=== PATIENT | female | born 1995 | race Caucasian/White ===

== ENCOUNTER 2023-05-09 21:30 | Outpatient (REF) | payer OTHER, SELFPAY ==
[2023-05-15 16:09] LABS: Age Gdln ACOG Testing Note (.); IGP, rfx Aptima HPV ASCU Note (.)
== END 2023-05-09 21:31 | disposition home or self-care (01) ==
LOC: LAB 21:30
PROVIDERS: Referring Provider Obstetrics & Gynecology; Visit Provider Obstetrics & Gynecology
DX: Z01.419 Encounter for gynecological examination (general) (routine) without abnormal findings (principal)
CPT/HCPCS: G0145

== ENCOUNTER 2023-05-10 09:11 | Outpatient (OUT) | payer OTHER, SELFPAY ==
--- NOTE | 2023-05-10 09:14 | US_ITS ---
The [address] [address] Patient Name: BRIAN SULLIVAN MRN: [id number] date: 1995 Sex: F Assigned Patient Location: Current Patient Location: US Accession/Order Number: [id number] Exam Date: 05/10/2023 09:16 Report Date: 05/10/2023 10:09 At the request of: INES WYATT Procedure: US pelvis w/ transvaginal EXAM: Pelvic ultrasound HISTORY: . Pelvic pain in female R10.2 . COMPARISON: None. TECHNIQUE: Transabdominal and transvaginal scanning was performed FINDINGS: Eating of the pelvis demonstrates uterus to be retroverted and measures 7.2 x 4.3 x 3.7 cm. Endometrial complex measures 2 mm. Right ovary measures 3.7 x 2.1 x 2 cm. Color-flow is noted. Resistive indexes 0.6. Follicles are noted. Left ovary measures 3.3 x 2.6 x 2.1 cm. Color-flow is noted. Resistive indexes 0.5. Follicles are noted. Vascularity is prominent in both adnexal regions. There is a small amount of fluid in the cul-de-sac. US/US pelvis w/ transvaginal IMPRESSION: 1. Normal-appearing retroverted uterus with a normal endometrial complex. 2. Normal-appearing ovaries with follicles noted. 3. Vascularity to the adnexal region was prominent. Findings could be due to to pelvic congestion. 4. Small amount of fluid in the cul-de-sac. Electronically authenticated by: MELINDA ORTEGA Date: 05/10/2023 10:09
== END 2023-05-10 09:12 | disposition home or self-care (01) ==
LOC: US 09:11
PROVIDERS: Visit Provider Obstetrics & Gynecology
DX: R10.2 Pelvic and perineal pain (principal); N85.4 Malposition of uterus; R93.5 Abnormal findings on diagnostic imaging of other abdominal regions, including retroperitoneum
CPT/HCPCS: 76830; 76856

== ENCOUNTER 2023-06-06 14:37 | Outpatient (OUT) | payer OTHER, SELFPAY ==
[2023-06-06 15:04] LABS: Basophils Percent Auto 0.1 % (0.2-2.0); Hematocrit 42.5 % (36.0-48.0); Hemoglobin 13.6 g/dL (12.0-16.0); Immature Granulocytes Abs Auto 0.03 10^3/uL (0.00-0.03); Immature Granulocytes Pct Auto 0.3 % (0.0-0.5); Lymphocytes Absolute Auto 1.7 10^3/uL (1.2-3.8); Lymphocytes Percent Auto 17.3 % (20.5-60.0); Mean Corpuscular Hemoglobin 26.9 pg (26.7-34.0); Mean Corpuscular Volume 84.2 fL (81.0-99.0); Mean Platelet Volume 8.5 fL (9.5-13.5); Monocytes Absolute Auto 0.6 10^3/uL (0.3-0.8); Monocytes Percent Auto 6.3 % (1.7-12.0); Neutrophils Absolute Auto 7.3 10^3/uL (1.4-6.5); Platelet Count 307 10^3/uL (150-450); Red Blood Count 5.05 10^6/uL (4.20-5.40); Red Cell Distribution Width 13.8 % (11.0-15.0); White Blood Count 9.6 10^3/uL (4.0-11.0)
[2023-06-06 16:25] LABS: Alanine Aminotransferase 26 U/L (14-59); Albumin Globulin Ratio 0.9; Albumin Level 3.8 g/dL (3.4-5.0); Alkaline Phosphatase 147 U/L (46-116); Anion Gap 10.5; Aspartate Amino Transferase 19 U/L (15-37); Bilirubin Total 0.4 mg/dL (0.2-1.0); Calcium 9.5 mg/dL (8.5-10.1); Carbon Dioxide 29.3 mmol/L (21.0-32.0); Chloride 102 mmol/L (98-107); Estimated GFR (African America >60 (>=60); Estimated GFR (Non-African Ame >60 (>=60); Globulin 4.3 g/dL; Glucose 81 mg/dL (74-106); Potassium 3.8 mmol/L (3.5-5.1); Sodium 138 mmol/L (136-145); Total Protein 8.1 g/dL (6.4-8.2)
== END 2023-06-06 14:38 | disposition home or self-care (01) ==
LOC: LAB 14:38
PROVIDERS: Visit Provider Physician Assistant
DX: R10.2 Pelvic and perineal pain (principal)
CPT/HCPCS: 36415; 80053; 85025

== ENCOUNTER 2023-06-28 09:33 | Outpatient (OUT) | payer OTHER, SELFPAY ==
--- NOTE | 2023-06-28 11:05 | CT_ITS ---
The [address] [place], [place] [address] Patient Name: BRIAN SULLIVAN MRN: [id number] date: 1995 Sex: F Assigned Patient Location: CT Current Patient Location: .MAIN Accession/Order Number: [id number] Exam Date: 06/28/2023 10:40 Report Date: 06/28/2023 17:11 At the request of: MAGDA SEPULVEDA Procedure: CT abdomen pelvis w con EXAM: CT abdomen pelvis w con HISTORY: Pelvic Pain In Female R10.2 COMPARISON: None. TECHNIQUE: Multiple axial images of the abdomen and pelvis are obtained following the administration of IV and oral contrast. Coronal and sagittal reformatted sequences are submitted for review. FINDINGS: The lung bases appear clear. The heart size is normal. Mild pericholecystic fluid is suspected. A tiny calcified gallstone may be seen. A right upper quadrant ultrasound may be considered for further evaluation. The liver, spleen, pancreas and bilateral adrenal glands appear unremarkable. Bilateral kidneys demonstrate normal size, morphology and contrast enhancement. There is no evidence for active]. Irregular filling defects in the gastric body cannot be excluded. Please correlate clinically. Nonobstructive bowel pattern is seen. Normal-appearing appendix is visualized. Mild wall thickening of the transverse colon is seen, suggestive of mild colitis. Tiny free pelvic fluid is seen, which may be physiologic. Mild prominent pelvic vascular structures is seen bilaterally, which appear stable since prior examination, which can seen with pelvic congestion syndrome. The abdominal wall and visualized soft tissues appear unremarkable. No acute osseous abnormality is seen. CT/CT abdomen pelvis w con IMPRESSION: Mild pericholecystic fluid is suspected. A tiny calcified gallstone may be seen. A right upper quadrant ultrasound may be considered for further evaluation. Mild prominent pelvic vascular structures is seen bilaterally, which appear stable since prior examination, which can seen with pelvic congestion syndrome. Irregular filling defects in the gastric body cannot be excluded. Please correlate clinically. Mild wall thickening of the transverse colon is seen, suggestive of mild colitis. Normal-appearing appendix is visualized. Electronically authenticated by: GAURAV WRIGHT Date: 06/28/2023 17:11
== END 2023-06-28 09:34 | disposition home or self-care (01) ==
LOC: CT 09:34
PROVIDERS: Visit Provider Physician Assistant
DX: R10.32 Left lower quadrant pain (principal); R10.2 Pelvic and perineal pain
CPT/HCPCS: 36415; 74177; 76830; 80053; 81003; 84703; 85025; 96374; 96375; 99284; Q9967

== ENCOUNTER 2023-06-28 16:39 | Emergency (ER) | payer OTHER, SELFPAY ==
[2023-06-28 16:43] VITALS: BP 128/77; PULSE 93; RESP 20; TEMP 36.6; O2SAT 99; BMI 27.5
--- NOTE | 2023-06-28 16:57 | US_ITS ---
[address] [address] Patient Name: BRIAN SULLIVAN MRN: [id number] date: 1995 Sex: F Assigned Patient Location: ER Current Patient Location: ER Accession/Order Number: [id number] Exam Date: 06/28/2023 17:29 Report Date: 06/28/2023 18:22 At the request of: MAGDIEL SONG Procedure: US pelvis transvaginal PROCEDURE: US pelvis transvaginal, 06/28/2023 5:29 PM EDT CLINICAL INDICATIONS: Left adnexal torsion, left-sided pelvic pain for one month, prior tubal ligation 1 para 1 COMPARISON: None TECHNIQUE: Transvaginal pelvic sonogram, grayscale color and spectral assessment. FINDINGS: Uterus: 6.2 x 3.0 x 4.3 cm. Uterus is retroverted/retroflexed. Endometrial echo complex 0.3 cm. Normal uterine sonographic morphology. Focal abnormality is not demonstrated. Right ovary: 3.8 x 1.9 x 2.6 cm, volume 10 mL. Subcentimeter follicle seen. Normal sonographic morphology. Left ovary: 2.6 x 1.6 x 1.8 cm, volume 4 mL. Subcentimeter follicle seen, normal sonographic morphology. DUPLEX PELVIC VASCULATURE: There is intact flow within the ovarian tissue bilaterally by color-flow assessment. Arterial spectral tracing is identified from within. Right resistive index 0.51, left 0.59. There is increased vascularity in the parametrial and adnexa level. There is mild free fluid in the adnexa level bilaterally. US/US pelvis transvaginal IMPRESSION: 1. Retroverted/retroflexed uterus 2. Normal bilateral ovarian sonographic morphology 3. No sonographic sign of adnexal torsion 4. Mild pelvic varices Electronically authenticated by: TOM CUBA Date: 06/28/2023 18:22
--- NOTE | 2023-06-28 16:59 | ED.ABDPAIN1 ---
HPI - Abdominal Pain General Chief Complaint: Abdominal Pain Stated Complaint: radiating abdominal pain Time Seen by Provider: 06/28/23 16:40 Mode of arrival: walk-in History of Present Illness HPI narrative: patient is a 27-year-old female who presents to the emergency department with a five day history of pain to the left lower quadrant. She had similar pain approximately one month ago and was evaluated by her [facility], she had an unremarkable ultrasound and was prescribed Tylenol with Codeine. She states when the pain began again five days ago, she started taking Tylenol with Codeine, she has had no improvement with this medication in the last several days. She was feeling nauseous so she took a Zofran prior to arrival. She had an outpatient CT scan of the abdomen and pelvis today. Results have not been sent by the radiologist yet. She denies any fevers, upper respiratory symptoms. She has not had any urinary symptoms. She has had a previous exploratory laparotomy and salpingectomy. Related Data Previous Rx's Medication Instructions Recorded ciprofloxacin HCl 500 mg tablet 500 mg PO BID #20 tabs 06/28/23 (Cipro) hydrocodone 5 mg-acetaminophen 325 1 tab PO Q6H PRN pain #12 tabs 06/28/23 mg tablet metronidazole 500 mg tablet 500 mg PO Q12H 10 days #20 tabs 06/28/23 ondansetron 4 mg disintegrating 4 mg PO Q6H PRN nausea and 06/28/23 tablet vomiting #12 tabs Allergies Allergy/AdvReac Type Severity Reaction Status Date / Time ibuprofen [From Motrin] AdvReac Unknown Verified 06/28/23 16:49 latex AdvReac Unknown Verified 06/28/23 16:49 Sulfa (Sulfonamide AdvReac Unknown Verified 06/28/23 16:49 Antibiotics) Review of Systems ROS Constitutional Denies: fever or chills Ears, nose, mouth, and throat Denies: throat pain Cardiovascular Denies: chest pain Respiratory Denies: shortness of breath Gastrointestinal Reports: abdominal pain and nausea; Denies: vomiting or diarrhea Genitourinary Denies: painful urination Musculoskeletal Denies: back pain or neck pain Integumentary/Breast Denies: rash Hematologic/Lymphatic Denies: easy bruising Exam Narrative Exam Narrative: Gen.: Awake, alert, in no distress Head: Normocephalic, atraumatic ENT: Moist mucous membranes Respiratory: No respiratory distress, lungs clear bilaterally Cardio: Regular rate and rhythm Gastrointestinal: Abdomen is soft, nondistended and tender in the left lower quadrant, no guarding or rebound Extremities: Moves extremities equally Psych: Normal mood and affect Neuro: No focal neuro deficit Skin: Warm, dry, intact Constitutional Vital Signs, click to edit/add: Last Vital Signs Temp 98 F 06/28/23 16:43 Pulse 93 H 06/28/23 16:43 Resp 06/28/23 16:43 BP 128/77 06/28/23 16:43 Pulse Ox 99 06/28/23 16:43 O2 Del Method Room Air 06/28/23 16:43 Course Vital Signs Vital signs: Vital Signs Temperature 98 F 06/28/23 16:43 Pulse Rate 93 H 06/28/23 16:43 Respiratory Rate 06/28/23 16:43 Blood Pressure 128/77 06/28/23 16:43 Pulse Oximetry 99 06/28/23 16:43 Oxygen Delivery Method Room Air 06/28/23 16:43 Temperature 98 F 06/28/23 16:43 Pulse Rate 93 H 06/28/23 16:43 Respiratory Rate 06/28/23 16:43 Blood Pressure 128/77 06/28/23 16:43 Pulse Oximetry 99 06/28/23 16:43 Oxygen Delivery Method Room Air 06/28/23 16:43 MDM - Abdominal Pain MDM Narrative Medical decision making narrative: patient was medicated with IV fluids, morphine, Zofran. I asked the radiology staff to send the CT scan as a stat read by the radiologist. This was reviewed and found to have evidence of mild colitis as well as pelvic congestion syndrome. Radiologist feels there may be a small amount of pericholecystic fluid, the patient has not had any right upper quadrant abdominal tenderness or right-sided abdominal pain. She has no pain to this area at this time I do not feel that her symptoms represent a cholecystitis. pelvic ultrasound with no evidence of torsion, patient does have pelvic varices consistent with her CT diagnosis of pelvic vascular congestion which may be contributing to some of her pain. Her CT also shows that she has evidence of mild colitis. We will treat with Cipro, Flagyl, Zofran, short course of analgesics. Abdomen is soft and benign on recheck by attending physician. Medical Records Attestation: I reviewed the patient's medical records. Lab Data Attestation: I reviewed the patient's lab results. Labs: Lab Results 06/28/23 06/28/23 Range/Units 17:05 17:11 WBC 10.4 (4.0-11.0) 10^3/uL RBC 4.78 (4.20-5.40) 10^6/uL Hgb 13.3 (12.0-16.0) g/dL Hct 40.8 (36.0-48.0) % MCV 85.4 (81.0-99.0) fL MCH 27.8 (26.7-34.0) pg MCHC 32.6 (29.9-35.2) g/dL RDW 13.4 (11.0-15.0) % Plt Count 260 (150-450) 10^3/uL MPV 9.1 L (9.5-13.5) fL Neut % (Auto) 76.5 H (43.0-75.0) % Lymph % (Auto) 18.4 L (20.5-60.0) % [place] % (Auto) 4.7 (1.7-12.0) % Eos % (Auto) 0.0 L (0.9-7.0) % Baso % (Auto) 0.1 L (0.2-2.0) % Neut # (Auto) 8.0 H (1.4-6.5) 10^3/uL Lymph # (Auto) 1.9 (1.2-3.8) 10^3/uL [place] # (Auto) 0.5 (0.3-0.8) 10^3/uL Eos # (Auto) 0.0 (0.0-0.7) 10^3/uL Baso # (Auto) 0.0 (0.0-0.1) 10^3/uL Abs Immat Gran (auto) 0.03 (0.00-0.03) 10^3/uL Imm/Tot Granulo (auto) 0.3 (0.0-0.5) % Sodium 139 (136-145) mmol/L Potassium 3.3 L (3.5-5.1) mmol/L Chloride 103 (98-107) mmol/L Carbon Dioxide 30.2 (21.0-32.0) mmol/L Anion Gap 9.1 BUN 8.0 (7.0-18.0) mg/dL Creatinine 0.72 (0.55-1.02) mg/dL Est GFR ( Amer) >60 (>=60) Est GFR (Non-Af Amer) >60 (>=60) BUN/Creatinine Ratio 11.1 Glucose 124 H (74-106) mg/dL Calcium 8.9 (8.5-10.1) mg/dL Total Bilirubin 0.3 (0.2-1.0) mg/dL AST 16 (15-37) U/L ALT 20 (14-59) U/L Alkaline Phosphatase 144 H (46-116) U/L Total Protein 7.5 (6.4-8.2) g/dL Albumin 3.5 (3.4-5.0) g/dL Globulin 4.0 g/dL Albumin/Globulin Ratio 0.9 Serum HCG, Qual Negative (NEGATIVE) Urine Color Lt. yellow (YELLOW) Urine Clarity Clear (CLEAR) Urine pH 7.0 (5.0-9.0) Ur Specific [place] <=1.005 A (1.005-1.025) Urine Protein Negative (NEG/TRACE) mg/dL Urine Glucose (UA) Negative (NEGATIVE) mg/dL Urine Ketones Negative (NEGATIVE) mg/dL Urine Occult Blood Negative (NEGATIVE) Urine Nitrite Negative (NEGATIVE) Urine Bilirubin Negative (NEGATIVE) Urine Urobilinogen 0.2 (0.2-1.0) EU/dL Ur Leukocyte Esterase Trace A (NEGATIVE) Imaging Data CT scan - abdomen: Attestation: I have reviewed the pertinent imaging results. Radiologist's impression: Procedure: CT abdomen pelvis w con EXAM: CT abdomen pelvis w con HISTORY: Pelvic Pain In Female R10.2 COMPARISON: None. TECHNIQUE: Multiple axial images of the abdomen and pelvis are obtained following the administration of IV and oral contrast. Coronal and sagittal reformatted sequences are submitted for review. FINDINGS: The lung bases appear clear. The heart size is normal. Mild pericholecystic fluid is suspected. A tiny calcified gallstone may be seen. A right upper quadrant ultrasound may be considered for further evaluation. The liver, spleen, pancreas and bilateral adrenal glands appear unremarkable. Bilateral kidneys demonstrate normal size, morphology and contrast enhancement. There is no evidence for active]. Irregular filling defects in the gastric body cannot be excluded. Please correlate clinically. Nonobstructive bowel pattern is seen. Normal-appearing appendix is visualized. Mild wall thickening of the transverse colon is seen, suggestive of mild colitis. Tiny free pelvic fluid is seen, which may be physiologic. Mild prominent pelvic vascular structures is seen bilaterally, which appear stable since prior examination, which can seen with pelvic congestion syndrome. The abdominal wall and visualized soft tissues appear unremarkable. No acute osseous abnormality is seen. IMPRESSION: Mild pericholecystic fluid is suspected. A tiny calcified gallstone may be seen. A right upper quadrant ultrasound may be considered for further evaluation. Mild prominent pelvic vascular structures is seen bilaterally, which appear stable since prior examination, which can seen with pelvic congestion syndrome. Irregular filling defects in the gastric body cannot be excluded. Please correlate clinically. Mild wall thickening of the transverse colon is seen, suggestive of mild colitis. Normal-appearing appendix is visualized. Electronically authenticated by: GAURAV WRIGHT Date: 06/28/2023 17:11 US - abdomen: Attestation: I have reviewed the pertinent imaging results. Radiologist's impression: Procedure: US pelvis transvaginal PROCEDURE: US pelvis transvaginal, 06/28/2023 5:29 PM EDT CLINICAL INDICATIONS: Left adnexal torsion, left-sided pelvic pain for one month, prior tubal ligation 1 para 1 COMPARISON: None TECHNIQUE: Transvaginal pelvic sonogram, grayscale color and spectral assessment. FINDINGS: Uterus: 6.2 x 3.0 x 4.3 cm. Uterus is retroverted/retroflexed. Endometrial echo complex 0.3 cm. Normal uterine sonographic morphology. Focal abnormality is not demonstrated. Right ovary: 3.8 x 1.9 x 2.6 cm, volume 10 mL. Subcentimeter follicle seen. Normal sonographic morphology. Left ovary: 2.6 x 1.6 x 1.8 cm, volume 4 mL. Subcentimeter follicle seen, normal sonographic morphology. DUPLEX PELVIC VASCULATURE: There is intact flow within the ovarian tissue bilaterally by color-flow assessment. Arterial spectral tracing is identified from within. Right resistive index 0.51, left 0.59. There is increased vascularity in the parametrial and adnexa level. There is mild free fluid in the adnexa level bilaterally. IMPRESSION: 1. Retroverted/retroflexed uterus 2. Normal bilateral ovarian sonographic morphology 3. No sonographic sign of adnexal torsion 4. Mild pelvic varices Electronically authenticated by: TOM CUBA Date: 06/28/2023 18:22 Discharge Plan Discharge Chief Complaint: Abdominal Pain Clinical Impression: Colitis, Abdominal pain Patient Disposition: Home, Self-Care Time of Disposition Decision: 18:42 Condition: Good Prescriptions / Home Meds: New hydrocodone-acetaminophen 5-325 mg tablet 1 tab PO Q6H PRN (Reason: pain) Qty: 12 0RF Rx Instructions: DX: R10.2 ciprofloxacin HCl [Cipro] 500 mg tablet 500 mg PO BID Qty: 20 0RF metronidazole 500 mg tablet 500 mg PO Q12H 10 Days Qty: 20 0RF Rx Instructions: DO NOT DRINK ALCOHOL WHILE TAKING THIS MEDICATION ondansetron 4 mg tablet,disintegrating 4 mg PO Q6H PRN (Reason: nausea and vomiting) Qty: 12 0RF Instructions: Abdominal Pain (ED), Colitis (ED), Pelvic Pain (ED) Stand Alone Forms: Portal Instructions Referrals: Ghanshyam Nieto DO [Physician] - 1 week Physician,Non-Staff, MD [Primary Care Provider] - 1 week
[2023-06-28] MEDS: MORPHINE SULFATE 4 MG/ML VIAL IV (17:19)
[2023-06-28] MEDS: ONDANSETRON PF 4 MG/2 ML VIAL IV (17:19)
[2023-06-28] MEDS: 0.9 % SODIUM CHLORIDE 1,000 ML 1000 ML IV (17:19)
[2023-06-28 17:39] LABS: HCG Qualitative NEGATIVE (NEGATIVE)
[2023-06-28 17:42] LABS: Alanine Aminotransferase 20 U/L (14-59); Albumin Globulin Ratio 0.9; Albumin Level 3.5 g/dL (3.4-5.0); Alkaline Phosphatase 144 U/L (46-116); Anion Gap 9.1; Aspartate Amino Transferase 16 U/L (15-37); BUN Creatinine Ratio 11.1; Bilirubin Total 0.3 mg/dL (0.2-1.0); Calcium 8.9 mg/dL (8.5-10.1); Carbon Dioxide 30.2 mmol/L (21.0-32.0); Chloride 103 mmol/L (98-107); Estimated GFR (African America >60 (>=60); Estimated GFR (Non-African Ame >60 (>=60); Glucose 124 mg/dL (74-106); Potassium 3.3 mmol/L (3.5-5.1); Sodium 139 mmol/L (136-145); Total Protein 7.5 g/dL (6.4-8.2)
[2023-06-28 17:44] LABS: Basophils Percent Auto 0.1 % (0.2-2.0); Hematocrit 40.8 % (36.0-48.0); Hemoglobin 13.3 g/dL (12.0-16.0); Immature Granulocytes Abs Auto 0.03 10^3/uL (0.00-0.03); Immature Granulocytes Pct Auto 0.3 % (0.0-0.5); Lymphocytes Absolute Auto 1.9 10^3/uL (1.2-3.8); Lymphocytes Percent Auto 18.4 % (20.5-60.0); Mean Corpuscular HGB Conc 32.6 g/dL (29.9-35.2); Mean Corpuscular Hemoglobin 27.8 pg (26.7-34.0); Mean Corpuscular Volume 85.4 fL (81.0-99.0); Mean Platelet Volume 9.1 fL (9.5-13.5); Monocytes Absolute Auto 0.5 10^3/uL (0.3-0.8); Monocytes Percent Auto 4.7 % (1.7-12.0); Neutrophils Percent Auto 76.5 % (43.0-75.0); Platelet Count 260 10^3/uL (150-450); Red Blood Count 4.78 10^6/uL (4.20-5.40); Red Cell Distribution Width 13.4 % (11.0-15.0); White Blood Count 10.4 10^3/uL (4.0-11.0)
[2023-06-28 18:16] LABS: Bilirubin Urine NEGATIVE (NEGATIVE); Blood Urine NEGATIVE (NEGATIVE); Clarity Urine CLEAR (CLEAR); Color Urine LT. YELLOW (YELLOW); Glucose Urine UA NEGATIVE (NEGATIVE); Ketones Urine NEGATIVE (NEGATIVE); Leukocyte Esterase Urine TRACE (NEGATIVE); Nitrite Urine NEGATIVE (NEGATIVE); Protein Urine NEGATIVE (NEG/TRACE); Specific Gravity Urine <=1.005 (1.005-1.025); Urobilinogen Urine 0.2 EU/dL (0.2-1.0)
[2023-06-28 18:17] LABS: Urine Microscopic Indicated NO
== END 2023-06-28 18:59 | disposition home or self-care (01) ==
PROVIDERS: Physician Assistant; Emergency Provider Emergency Medicine
DX: R10.32 Left lower quadrant pain (principal)
CPT/HCPCS: 36415; 76830; 80053; 81003; 84703; 85025; 96374; 96375; 99284

== ENCOUNTER 2023-06-30 14:35 | Emergency (ER) | payer OTHER, SELFPAY ==
[2023-06-30 14:39] VITALS: BP 121/79; PULSE 78; RESP 18; TEMP 37.3; O2SAT 98; BMI 27.5
--- NOTE | 2023-06-30 14:52 | ED_ITS ---
HPI - General Adult General Chief complaint: Abdominal Pain Stated complaint: ABDOMINAL/WHOLE BODY PAIN/BURNING Time Seen by Provider: 06/30/23 14:46 Source: patient Mode of arrival: walk-in History of Present Illness HPI narrative: 27-year-old female presents for not feeling well. Her whole body hurts. She was here a few days ago and was diagnosed with colitis and she was prescribed Cipro and Flagyl. Achingmedications. She has not had a known fever or blood in her stool. She states that everything hurts. Related Data Previous Rx's Medication Instructions Recorded ciprofloxacin HCl 500 mg tablet 500 mg PO BID #20 tabs 06/28/23 (Cipro) metronidazole 500 mg tablet 500 mg PO Q12H 10 days #20 tabs 06/28/23 ondansetron 4 mg disintegrating 4 mg PO Q6H PRN nausea and 06/28/23 tablet vomiting #12 tabs oxycodone-acetaminophen 5 mg-325 1 tab PO Q6H PRN pain #8 tabs 06/28/23 mg tablet (Percocet) Allergies Allergy/AdvReac Type Severity Reaction Status Date / Time ibuprofen [From Motrin] AdvReac Unknown Verified 06/28/23 16:49 latex AdvReac Unknown Verified 06/28/23 16:49 Sulfa (Sulfonamide AdvReac Unknown Verified 06/28/23 16:49 Antibiotics) Review of Systems ROS Narrative A ten point review of systems is negative except as noted above. Exam Narrative Exam Narrative: Nurses note and vital signs reviewed and patient is not hypoxic. General: The patient appears well and in no apparent distress. Patient is resting comfortably on cart. Skin: Warm, dry, no pallor noted. There is no rash noted. Head: Normocephalic, atraumatic Eye: Normal conjunctiva, no drainage Ears, Nose, Mouth, and Throat: oral mucosa is moist. Nares patent. Cardiovascular: Regular Rate and Rhythm Respiratory: Patient is in no distress, no accessory muscle use, lungs are clear to auscultation, no wheezing, rales or rhonchi Back: non-tender GI: Normal bowel sounds, no apparent tenderness to palpation, no masses appreciated. No rebound, guarding, or rigidity noted. Musculoskeletal: The patient has no evidence of calf tenderness, no pitting edema, symmetrical pulses noted bilaterally Neurological: A&O, normal speech Psychiatric: Cooperative Constitutional Vital Signs, click to edit/add: Last Vital Signs Temp 99.1 F 06/30/23 14:39 Pulse 78 06/30/23 14:39 Resp 18 06/30/23 14:39 BP 121/79 06/30/23 14:39 Pulse Ox 98 06/30/23 14:39 Course Vital Signs Vital signs: Vital Signs Temperature 99.1 F 06/30/23 14:39 Pulse Rate 78 06/30/23 14:39 Respiratory Rate 18 06/30/23 14:39 Blood Pressure 121/79 06/30/23 14:39 Pulse Oximetry 98 06/30/23 14:39 Temperature 99.1 F 06/30/23 14:39 Pulse Rate 78 06/30/23 14:39 Respiratory Rate 18 06/30/23 14:39 Blood Pressure 121/79 06/30/23 14:39 Pulse Oximetry 98 06/30/23 14:39 Medical Decision Making MDM Narrative Medical decision making narrative: CT today shows constipation. The previously noted colitis seems to have resolved. She'll be discharged home and was recommended MiraLAX. Treatment diagnosis and follow-up were discussed with the patient. Differential Diagnosis Differential Diagnosis: colitis, diverticulitis, constipation Lab Data Lab results reviewed: Yes I reviewed the patient's lab results Labs: Lab Results 06/30/23 06/30/23 Range/Units 15:07 16:20 WBC 15.1 H (4.0-11.0) 10^3/uL RBC 5.05 (4.20-5.40) 10^6/uL Hgb 13.9 (12.0-16.0) g/dL Hct 43.6 (36.0-48.0) % MCV 86.3 (81.0-99.0) fL MCH 27.5 (26.7-34.0) pg MCHC 31.9 (29.9-35.2) g/dL RDW 13.5 (11.0-15.0) % Plt Count 237 (150-450) 10^3/uL MPV 8.7 L (9.5-13.5) fL Neut % (Auto) 82.3 H (43.0-75.0) % Lymph % (Auto) 11.3 L (20.5-60.0) % [place] % (Auto) 6.0 (1.7-12.0) % Eos % (Auto) 0.0 L (0.9-7.0) % Baso % (Auto) 0.1 L (0.2-2.0) % Neut # (Auto) 12.4 H (1.4-6.5) 10^3/uL Lymph # (Auto) 1.7 (1.2-3.8) 10^3/uL Ness # (Auto) 0.9 H (0.3-0.8) 10^3/uL Eos # (Auto) 0.0 (0.0-0.7) 10^3/uL Baso # (Auto) 0.0 (0.0-0.1) 10^3/uL Abs Immat Gran (auto) 0.05 H (0.00-0.03) 10^3/uL Imm/Tot Granulo (auto) 0.3 (0.0-0.5) % Sodium 139 (136-145) mmol/L Potassium 4.0 (3.5-5.1) mmol/L Chloride 102 (98-107) mmol/L Carbon Dioxide 32.9 H (21.0-32.0) mmol/L Anion Gap 8.1 BUN 7.0 (7.0-18.0) mg/dL Creatinine 0.83 (0.55-1.02) mg/dL Est GFR ( Amer) >60 (>=60) Est GFR (Non-Af Amer) >60 (>=60) BUN/Creatinine Ratio 8.4 Glucose 87 (74-106) mg/dL Calcium 9.2 (8.5-10.1) mg/dL Urine Color Lt. yellow (YELLOW) Urine Clarity Slightly cloudy A (CLEAR) Urine pH 7.5 (5.0-9.0) Ur Specific [place] 1.025 (1.005-1.025) Urine Protein Negative (NEG/TRACE) mg/dL Urine Glucose (UA) Negative (NEGATIVE) mg/dL Urine Ketones Negative (NEGATIVE) mg/dL Urine Occult Blood Negative (NEGATIVE) Urine Nitrite Negative (NEGATIVE) Urine Bilirubin Negative (NEGATIVE) Urine Urobilinogen 0.2 (0.2-1.0) EU/dL Ur Leukocyte Esterase Trace A (NEGATIVE) Urine RBC None seen (0-2) #/HPF Urine WBC 0-2 A (NONE SEEN) #/HPF Ur Squamous Epith Cells Few A (NONE/RARE) #/LPF Urine Crystals None seen (None Seen) #/HPF Urine Bacteria Moderate A (NONE SEEN) #/HPF Urine Casts None seen (NONE SEEN) #/LPF Urine Mucus None seen (NONE SEEN) Ur Culture Indicated? Yes Imaging Data CT scan - abdomen: Radiologist's impression: constipation Discharge Plan Discharge Chief Complaint: Abdominal Pain Clinical Impression: Constipation Patient Disposition: Home, Self-Care Time of Disposition Decision: 18:55 Condition: Good Mode of Transportation: Private Vehicle Prescriptions / Home Meds: No Action ciprofloxacin HCl [Cipro] 500 mg tablet 500 mg PO BID Qty: 20 0RF metronidazole 500 mg tablet 500 mg PO Q12H 10 Days Qty: 20 0RF Rx Instructions: DO NOT DRINK ALCOHOL WHILE TAKING THIS MEDICATION ondansetron 4 mg tablet,disintegrating 4 mg PO Q6H PRN (Reason: nausea and vomiting) Qty: 12 0RF oxycodone-acetaminophen [Percocet] 5-325 mg tablet 1 tab PO Q6H PRN (Reason: pain) Qty: 8 0RF Rx Instructions: R10.2 Instructions: Constipation (ED) Stand Alone Forms: Portal Instructions Referrals: Physician,Non-Staff, MD [Primary Care Provider] - 1 week
[2023-06-30] MEDS: KETOROLAC TROMETHAMINE 30 MG/ML VIAL IVP (15:12)
[2023-06-30] MEDS: ONDANSETRON PF 4 MG/2 ML VIAL IV (15:12)
[2023-06-30] MEDS: 0.9 % SODIUM CHLORIDE 1,000 ML 1000 ML IV (15:12)
[2023-06-30 15:20] LABS: Basophils Percent Auto 0.1 % (0.2-2.0); Hematocrit 43.6 % (36.0-48.0); Hemoglobin 13.9 g/dL (12.0-16.0); Immature Granulocytes Abs Auto 0.05 10^3/uL (0.00-0.03); Immature Granulocytes Pct Auto 0.3 % (0.0-0.5); Lymphocytes Absolute Auto 1.7 10^3/uL (1.2-3.8); Lymphocytes Percent Auto 11.3 % (20.5-60.0); Mean Corpuscular HGB Conc 31.9 g/dL (29.9-35.2); Mean Corpuscular Hemoglobin 27.5 pg (26.7-34.0); Mean Corpuscular Volume 86.3 fL (81.0-99.0); Mean Platelet Volume 8.7 fL (9.5-13.5); Monocytes Absolute Auto 0.9 10^3/uL (0.3-0.8); Neutrophils Absolute Auto 12.4 10^3/uL (1.4-6.5); Neutrophils Percent Auto 82.3 % (43.0-75.0); Platelet Count 237 10^3/uL (150-450); Red Blood Count 5.05 10^6/uL (4.20-5.40); Red Cell Distribution Width 13.5 % (11.0-15.0); White Blood Count 15.1 10^3/uL (4.0-11.0)
[2023-06-30 15:23] LABS: Anion Gap 8.1; BUN Creatinine Ratio 8.4; Calcium 9.2 mg/dL (8.5-10.1); Carbon Dioxide 32.9 mmol/L (21.0-32.0); Chloride 102 mmol/L (98-107); Estimated GFR (African America >60 (>=60); Estimated GFR (Non-African Ame >60 (>=60); Glucose 87 mg/dL (74-106); Sodium 139 mmol/L (136-145)
--- NOTE | 2023-06-30 16:10 | CT_ITS ---
The [address] [address] Patient Name: BRIAN SULLIVAN MRN: [id number] date: 1995 Sex: F Assigned Patient Location: ER Current Patient Location: ER Accession/Order Number: [id number] Exam Date: 06/30/2023 16:31 Report Date: 06/30/2023 17:24 At the request of: AILEEN NICOLAS Procedure: CT head/brain wo con EXAM: NONCONTRAST CT SCAN OF THE HEAD HISTORY: Elevated white blood cell in the ER 2 days ago for abdominal pain now having right leg pain and chills with double vision. Patient has had an exploratory laparoscopy bladder stretched tubal and ablation. Patient has colitis that was diagnosed on 06/28/[address] scan. TECHNIQUE: Multiple axial images are taken from the level the vertex down to the base of the skull without the use of IV contrast. Images were then reconstructed in the sagittal and coronal planes. This exam was performed according to our departmental dose-optimization program which includes use of Automated Exposure Control, adjustment of the mA and/or kV according to patient size and/or use of iterative reconstruction technique. COMPARISON: CT abdomen pelvis 06/28/2023 FINDINGS: Brain Parenchyma: No intracranial mass. No intracranial hemorrhage. Stacy-white matter within expected limits of normal for patient's age. Posterior fossa: Normal. Midline shift: None Extra-axial fluid collection: None Ventricles: Normal. Mastoid air cells: Normal. Sinuses: Normal. Cranium: No depressed skull fracture. Soft tissues: Normal. Orbits: Normal. CT/CT head/brain wo con IMPRESSION: 1. No noncontrast CT evidence for acute intracranial pathology. 2. If patient continues to have symptoms or if there remains any further clinical concern, MRI may help better delineate if clinically indicated. Electronically authenticated by: DARLENE PITTMAN Date: 06/30/2023 17:24
[2023-06-30 16:44] LABS: Bilirubin Urine NEGATIVE (NEGATIVE); Blood Urine NEGATIVE (NEGATIVE); Color Urine LT. YELLOW (YELLOW); Glucose Urine UA NEGATIVE (NEGATIVE); Ketones Urine NEGATIVE (NEGATIVE); Leukocyte Esterase Urine TRACE (NEGATIVE); Nitrite Urine NEGATIVE (NEGATIVE); Protein Urine NEGATIVE (NEG/TRACE); Specific Gravity Urine 1.025 (1.005-1.025); Urobilinogen Urine 0.2 EU/dL (0.2-1.0); pH Urine 7.5 (5.0-9.0)
[2023-06-30 16:49] LABS: Bacteria Urine MODERATE #/HPF (NONE SEEN); Clarity Urine SLIGHTLY CLOUDY (CLEAR); Mucus Urine NONE SEEN (NONE SEEN); RBC Urine NONE SEEN #/HPF (0-2); Squamous Epithelial Cell Urine FEW #/LPF (NONE/RARE); WBC Urine 0-2 #/HPF (NONE SEEN)
[2023-06-30 16:50] LABS: Cast Seen? NONE SEEN #/LPF (NONE SEEN); Crystals Seen? None Seen #/HPF (None Seen); Urine Culture Indicated YES
--- NOTE | 2023-06-30 17:37 | CT_ITS ---
The [address] [address] Patient Name: BRIAN SULLIVAN MRN: [id number] date: 1995 Sex: F Assigned Patient Location: ER Current Patient Location: Accession/Order Number: [id number] Exam Date: 06/30/2023 18:05 Report Date: 06/30/2023 19:17 At the request of: AILEEN NICOLAS Procedure: CT abdomen pelvis w con EXAM: CT abdomen pelvis w con HISTORY: low abd pain COMPARISON: 06/28/2023. 07/06/2022. TECHNIQUE: Enhanced helical acquisition obtained through the abdomen and the pelvis. FINDINGS: Interval development of mild patchy airspace opacification within the left lower lobe concerning for interval development of mild left lower lobe pneumonia. Trace bilateral layering pleural effusions. Unremarkable gallbladder. No significant biliary ductal dilatation. The spleen, pancreas, adrenal glands and the kidneys are unremarkable. No enlarged lymph nodes within the abdomen or the pelvis. Trace free fluid within the pelvic cul-de-sac, likely physiologic. No evidence of acute appendicitis. Moderate stool burden throughout the colon. Previously questioned colonic wall thickening is noted appreciated on the current examination. No free intraperitoneal gas. CT/CT abdomen pelvis w con IMPRESSION: 1. Normal appendix. No inflammatory changes within the abdomen or the pelvis. 2. Moderate stool burden throughout the colon. Previously questioned colonic wall thickening is not appreciated on the current examination. 3. Interval development of mild patchy airspace opacification within the included left lower lobe with the lung concerning for mild left lower lobe pneumonia. Trace bilateral layering pleural effusions. Electronically authenticated by: LEATHA OKEEFE Date: 06/30/2023 19:17
[2023-06-30] MEDS: LORAZEPAM 2 MG/ML 1 ML VIAL 1 MG IV (17:55)
[2023-06-30] MEDS: MORPHINE SULFATE 4 MG/ML VIAL IV (17:56)
[2023-06-30 19:08] VITALS: BP 109/87; PULSE 96; RESP 14; TEMP 37.1
== END 2023-06-30 19:14 | disposition home or self-care (01) ==
PROVIDERS: Emergency Provider Emergency Medicine
DX: K59.00 Constipation, unspecified (principal)
CPT/HCPCS: 36415; 70450; 74177; 80048; 81001; 85025; 87086; 96374; 96375; 99285; Q9967

== ENCOUNTER 2023-07-05 11:02 | Outpatient (OUT) | payer OTHER, SELFPAY ==
--- NOTE | 2023-07-05 11:06 | US_ITS ---
The [address] [address] Patient Name: BRIAN SULLIVAN MRN: [id number] date: 1995 Sex: F Assigned Patient Location: US Current Patient Location: US Accession/Order Number: [id number] Exam Date: 07/05/2023 11:06 Report Date: 07/05/2023 13:08 At the request of: INES WYATT Procedure: US pelvis w/ transvaginal EXAMINATION: US pelvis w/ transvaginal HISTORY: ABD PAIN ; increasing left lower quadrant pain over past week COMPARISON: Ultrasound pelvis 06/28/2023 TECHNIQUE: Transabdominal and/or transvaginal sonographic examination was performed as indicated by examination type. FINDINGS: UTERUS: Normal size and appearance. Uterus size: 7. 63.2 x 4.3 cm ENDOMETRIUM: Normal homogeneous appearance. Endometrial thickness: 2 mm RIGHT OVARY: Normal size and appearance. Duplex Doppler demonstrates normal waveform and flow; resistive index 0.6. Ovary size: 3.4 x 2.0 x 2.8 cm LEFT OVARY: Normal size and appearance. Duplex Doppler demonstrates normal waveform and flow; resistive index 0.5. Ovary size: 3.5 x 2.1 x 2.9 cm CUL-DE-SAC: Small amount of free fluid within cul-de-sac; likely physiologic. BLADDER: Unremarkable. OTHER: Prominent vessels within the adnexa; left greater than right, of uncertain clinical significance. US/US pelvis w/ transvaginal IMPRESSION: 1. No acute or suspicious findings to account for patient's symptoms. Electronically authenticated by: ILENE MERCADO Date: 07/05/2023 13:08
== END 2023-07-05 11:03 | disposition home or self-care (01) ==
LOC: US 11:03
PROVIDERS: Visit Provider Obstetrics & Gynecology
DX: E28.2 Polycystic ovarian syndrome (principal); R10.2 Pelvic and perineal pain
CPT/HCPCS: 76830; 76856

== ENCOUNTER 2023-07-19 09:58 | Emergency (ER) | payer OTHER, SELFPAY ==
[2023-07-19 10:40] VITALS: BP 114/73; PULSE 90; RESP 14; TEMP 36.8; O2SAT 98; BMI 26.2
--- NOTE | 2023-07-19 12:27 | CT_ITS ---
[address] [address] Patient Name: BRIAN SULLIVAN MRN: [id number] date: 1995 Sex: F Assigned Patient Location: ER Current Patient Location: ER Accession/Order Number: [id number] Exam Date: 07/19/2023 13:25 Report Date: 07/19/2023 14:20 At the request of: AILEEN NICOLAS Procedure: CT abdomen pelvis w con EXAM: CT abdomen pelvis w con HISTORY: low abd pain COMPARISON: 06/30/2023 TECHNIQUE: Axial CT imaging was performed through the abdomen and pelvis with intravenous contrast. Multiplanar reformats were performed. Dose reduction techniques were achieved by using automated exposure control and/or adjustment of mA and/or kV according to patient size and/or use of iterative reconstruction technique. FINDINGS: Lung bases: Lung bases are clear. No pleural effusion. GI upper: Unremarkable. Liver: Normal size and contour. Gallbladder: No significant abnormality. No cholelithiasis. Biliary system: No intra or extrahepatic biliary ductal dilatation. Spleen: Normal size. Pancreas: Unremarkable. Adrenal glands: Normal adrenal glands. Kidneys/ureters: Normal contours. No hydronephrosis. No nephrolithiasis or ureterolithiasis. Vessels: No aneurysm. Lymph Nodes: No lymphadenopathy. Small bowel: No wall thickening or dilatation. Colon: No wall thickening or dilatation. Appendix: No findings of appendicitis. Peritoneal cavity: No free fluid or pneumoperitoneum. Lower : No significant abnormality of the uterus or adnexa. Bones: No acute bony abnormality. Soft tissues: No acute finding. Additional findings: None. CT/CT abdomen pelvis w con IMPRESSION: Unremarkable CT of the abdomen and pelvis. No acute abnormality. Electronically authenticated by: GUNNAR FLOYD Date: 07/19/2023 14:20
--- NOTE | 2023-07-19 12:34 | ED.ABDPAIN1 ---
HPI - Abdominal Pain General Chief Complaint: Abdominal Pain Stated Complaint: ABDOMINAL PAIN Time Seen by Provider: 07/19/23 12:17 Source: patient Mode of arrival: walk-in History of Present Illness HPI narrative: 27-year-old female presents for low abdominal pain. She's had this for the last day or two and she is worried about having colitis again. 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 No fever vomiting or constipation or diarrhea or dysuria. The pain is moderate. Related Data Home Medications Medication Instructions Recorded Confirmed clindamycin 1.2 % (1 % 1 applic topical DAILY 07/19/23 07/19/23 base)-benzoyl peroxide 5 % topical gel ketoconazole 2 % shampoo 1 applic topical DAILY 07/19/23 07/19/23 lumateperone 42 mg capsule 42 mg PO DAILY 07/19/23 07/19/23 (Caplyta) minocycline 100 mg capsule 100 mg PO Q12H 07/19/23 07/19/23 mirtazapine 45 mg tablet 45 mg PO QPM 07/19/23 07/19/23 Allergies Allergy/AdvReac Type Severity Reaction Status Date / Time ciprofloxacin [From Cipro] Allergy Severe Verified 07/19/23 10:40 ibuprofen [From Motrin] AdvReac Unknown Verified 06/28/23 16:49 latex AdvReac Unknown Verified 06/28/23 16:49 Sulfa (Sulfonamide AdvReac Unknown Verified 06/28/23 16:49 Antibiotics) Review of Systems ROS Narrative A ten point review of systems is negative except as noted above. Exam Narrative Exam Narrative: Nurses note and vital signs reviewed and patient is not hypoxic. General: The patient appears well and in no apparent distress. Patient is resting comfortably on cart. Skin: Warm, dry, no pallor noted. There is no rash noted. Head: Normocephalic, atraumatic Eye: Normal conjunctiva, no drainage Ears, Nose, Mouth, and Throat: oral mucosa is moist. Nares patent. Cardiovascular: Regular Rate and Rhythm Respiratory: Patient is in no distress, no accessory muscle use, lungs are clear to auscultation, no wheezing, rales or rhonchi Back: non-tender GI: tender in the lower abdomen without mass or distention. Musculoskeletal: The patient has no evidence of calf tenderness, no pitting edema, symmetrical pulses noted bilaterally Neurological: A&O, normal speech Psychiatric: Cooperative Constitutional Vital Signs, click to edit/add: Last Vital Signs Temp 98.2 F 07/19/23 10:40 Pulse 90 07/19/23 10:40 Resp 14 07/19/23 10:40 BP 114/73 07/19/23 10:40 Pulse Ox 98 07/19/23 10:40 O2 Del Method Room Air 07/19/23 10:40 Course Vital Signs Vital signs: Vital Signs Temperature 98.2 F 07/19/23 10:40 Pulse Rate 90 07/19/23 10:40 Respiratory Rate 14 07/19/23 10:40 Blood Pressure 114/73 07/19/23 10:40 Pulse Oximetry 98 07/19/23 10:40 Oxygen Delivery Method Room Air 07/19/23 10:40 Temperature 98.2 F 07/19/23 10:40 Pulse Rate 90 07/19/23 10:40 Respiratory Rate 14 07/19/23 10:40 Blood Pressure 114/73 07/19/23 10:40 Pulse Oximetry 98 07/19/23 10:40 Oxygen Delivery Method Room Air 07/19/23 10:40 MDM - Abdominal Pain MDM Narrative Medical decision making narrative: blood work is essentially normal and the CT of the abdomen is normal. She is not . She is able to be discharged home. Treatment diagnosis and follow-up were discussed with the patient. Differential Diagnosis Differential diagnosis: Likely abdominal pain, constipation, diverticulitis, gastroenteritis and small bowel obstruction Lab Data Attestation: I reviewed the patient's lab results. Labs: Lab Results 07/19/23 07/19/23 Range/Units 12:35 12:40 WBC 7.6 (4.0-11.0) 10^3/uL RBC 5.14 (4.20-5.40) 10^6/uL Hgb 14.1 (12.0-16.0) g/dL Hct 43.4 (36.0-48.0) % MCV 84.4 (81.0-99.0) fL MCH 27.4 (26.7-34.0) pg MCHC 32.5 (29.9-35.2) g/dL RDW 13.6 (11.0-15.0) % Plt Count 344 (150-450) 10^3/uL MPV 9.0 L (9.5-13.5) fL Neut % (Auto) 74.6 (43.0-75.0) % Lymph % (Auto) 20.0 L (20.5-60.0) % Stephens % (Auto) 5.0 (1.7-12.0) % Eos % (Auto) 0.0 L (0.9-7.0) % Baso % (Auto) 0.0 L (0.2-2.0) % Neut # (Auto) 5.7 (1.4-6.5) 10^3/uL Lymph # (Auto) 1.5 (1.2-3.8) 10^3/uL Stephens # (Auto) 0.4 (0.3-0.8) 10^3/uL Eos # (Auto) 0.0 (0.0-0.7) 10^3/uL Baso # (Auto) 0.0 (0.0-0.1) 10^3/uL Abs Immat Gran (auto) 0.03 (0.00-0.03) 10^3/uL Imm/Tot Granulo (auto) 0.4 (0.0-0.5) % Sodium 137 (136-145) mmol/L Potassium 3.7 (3.5-5.1) mmol/L Chloride 101 (98-107) mmol/L Carbon Dioxide 29.9 (21.0-32.0) mmol/L Anion Gap 9.8 BUN 7.0 (7.0-18.0) mg/dL Creatinine 0.73 (0.55-1.02) mg/dL Est GFR ( Amer) >60 (>=60) Est GFR (Non-Af Amer) >60 (>=60) BUN/Creatinine Ratio 9.6 Glucose 82 (74-106) mg/dL Calcium 9.2 (8.5-10.1) mg/dL Serum HCG, Qual Negative (NEGATIVE) Urine Color Lt. yellow (YELLOW) Urine Clarity Clear (CLEAR) Urine pH 8.0 (5.0-9.0) Ur Specific [place] 1.015 (1.005-1.025) Urine Protein Negative (NEG/TRACE) mg/dL Urine Glucose (UA) Negative (NEGATIVE) mg/dL Urine Ketones Negative (NEGATIVE) mg/dL Urine Occult Blood Negative (NEGATIVE) Urine Nitrite Negative (NEGATIVE) Urine Bilirubin Negative (NEGATIVE) Urine Urobilinogen 0.2 (0.2-1.0) EU/dL Ur Leukocyte Esterase Trace A (NEGATIVE) Urine RBC None seen (0-2) #/HPF Urine WBC 2-5 A (NONE SEEN) #/HPF Ur Squamous Epith Cells Few A (NONE/RARE) #/LPF Urine Bacteria Moderate A (NONE SEEN) #/HPF Urine Mucus None seen (NONE SEEN) Imaging Data CT scan - abdomen: Radiologist's impression: Procedure: CT abdomen pelvis w con EXAM: CT abdomen pelvis w con HISTORY: low abd pain COMPARISON: 06/30/2023 TECHNIQUE: Axial CT imaging was performed through the abdomen and pelvis with intravenous contrast. Multiplanar reformats were performed. Dose reduction techniques were achieved by using automated exposure control and/or adjustment of mA and/or kV according to patient size and/or use of iterative reconstruction technique. FINDINGS: Lung bases: Lung bases are clear. No pleural effusion. GI upper: Unremarkable. Liver: Normal size and contour. Gallbladder: No significant abnormality. No cholelithiasis. Biliary system: No intra or extrahepatic biliary ductal dilatation. Spleen: Normal size. Pancreas: Unremarkable. Adrenal glands: Normal adrenal glands. Kidneys/ureters: Normal contours. No hydronephrosis. No nephrolithiasis or ureterolithiasis. Vessels: No aneurysm. Lymph Nodes: No lymphadenopathy. Small bowel: No wall thickening or dilatation. Colon: No wall thickening or dilatation. Appendix: No findings of appendicitis. Peritoneal cavity: No free fluid or pneumoperitoneum. Lower : No significant abnormality of the uterus or adnexa. Bones: No acute bony abnormality. Soft tissues: No acute finding. Additional findings: None. IMPRESSION: Unremarkable CT of the abdomen and pelvis. No acute abnormality. Electronically authenticated by: GUNNAR FLOYD Date: 07/19/2023 14:20 Discharge Plan Discharge Chief Complaint: Abdominal Pain Clinical Impression: Abdominal pain Patient Disposition: Home, Self-Care Time of Disposition Decision: 14:45 Condition: Good Mode of Transportation: Private Vehicle Prescriptions / Home Meds: No Action clindamycin-benzoyl peroxide 1.2 %(1 % base) -5 % gel 1 applic TOPICAL DAILY ketoconazole 2 % shampoo 1 applic TOPICAL DAILY Caplyta 42 mg capsule 42 mg PO DAILY minocycline 100 mg capsule 100 mg PO Q12H mirtazapine 45 mg tablet 45 mg PO QPM Instructions: Abdominal Pain (ED) Stand Alone Forms: Portal Instructions Referrals: Shaun Downey DO [Primary Care Provider] - 1 week
[2023-07-19 13:03] LABS: Anion Gap 9.8; BUN Creatinine Ratio 9.6; Calcium 9.2 mg/dL (8.5-10.1); Carbon Dioxide 29.9 mmol/L (21.0-32.0); Chloride 101 mmol/L (98-107); Estimated GFR (African America >60 (>=60); Estimated GFR (Non-African Ame >60 (>=60); Glucose 82 mg/dL (74-106); Hematocrit 43.4 % (36.0-48.0); Hemoglobin 14.1 g/dL (12.0-16.0); Immature Granulocytes Abs Auto 0.03 10^3/uL (0.00-0.03); Immature Granulocytes Pct Auto 0.4 % (0.0-0.5); Lymphocytes Absolute Auto 1.5 10^3/uL (1.2-3.8); Mean Corpuscular HGB Conc 32.5 g/dL (29.9-35.2); Mean Corpuscular Hemoglobin 27.4 pg (26.7-34.0); Mean Corpuscular Volume 84.4 fL (81.0-99.0); Monocytes Absolute Auto 0.4 10^3/uL (0.3-0.8); Neutrophils Absolute Auto 5.7 10^3/uL (1.4-6.5); Neutrophils Percent Auto 74.6 % (43.0-75.0); Platelet Count 344 10^3/uL (150-450); Potassium 3.7 mmol/L (3.5-5.1); Red Blood Count 5.14 10^6/uL (4.20-5.40); Red Cell Distribution Width 13.6 % (11.0-15.0); Sodium 137 mmol/L (136-145); White Blood Count 7.6 10^3/uL (4.0-11.0)
[2023-07-19 13:07] LABS: Bilirubin Urine NEGATIVE (NEGATIVE); Blood Urine NEGATIVE (NEGATIVE); Clarity Urine CLEAR (CLEAR); Color Urine LT. YELLOW (YELLOW); Glucose Urine UA NEGATIVE (NEGATIVE); Ketones Urine NEGATIVE (NEGATIVE); Leukocyte Esterase Urine TRACE (NEGATIVE); Nitrite Urine NEGATIVE (NEGATIVE); Protein Urine NEGATIVE (NEG/TRACE); Specific Gravity Urine 1.015 (1.005-1.025); Urobilinogen Urine 0.2 EU/dL (0.2-1.0)
[2023-07-19 13:09] LABS: HCG Qualitative NEGATIVE (NEGATIVE)
[2023-07-19 13:24] LABS: Bacteria Urine MODERATE #/HPF (NONE SEEN); Mucus Urine NONE SEEN (NONE SEEN); RBC Urine NONE SEEN #/HPF (0-2)
[2023-07-19 13:25] LABS: Squamous Epithelial Cell Urine FEW #/LPF (NONE/RARE)
[2023-07-19 14:51] VITALS: BP 120/80; PULSE 80; RESP 18
== END 2023-07-19 14:51 | disposition home or self-care (01) ==
PROVIDERS: Emergency Provider Emergency Medicine; PCP Family Medicine
DX: R10.9 Unspecified abdominal pain (principal); Z79.899 Other long term (current) drug therapy
CPT/HCPCS: 36415; 74177; 80048; 81001; 84703; 85025; 99285; Q9967

== ENCOUNTER 2023-10-04 12:11 | Outpatient (OUT) | payer OTHER, SELFPAY ==
[2023-10-04 12:29] LABS: Hematocrit 40.6 % (36.0-48.0); Hemoglobin 12.9 g/dL (12.0-16.0); Immature Granulocytes Abs Auto 0.03 10^3/uL (0.00-0.03); Immature Granulocytes Pct Auto 0.4 % (0.0-0.5); Lymphocytes Absolute Auto 2.4 10^3/uL (1.2-3.8); Lymphocytes Percent Auto 29.8 % (20.5-60.0); Mean Corpuscular HGB Conc 31.8 g/dL (29.9-35.2); Mean Corpuscular Hemoglobin 27.4 pg (26.7-34.0); Mean Corpuscular Volume 86.2 fL (81.0-99.0); Mean Platelet Volume 8.6 fL (9.5-13.5); Monocytes Absolute Auto 0.5 10^3/uL (0.3-0.8); Monocytes Percent Auto 5.8 % (1.7-12.0); Neutrophils Absolute Auto 5.1 10^3/uL (1.4-6.5); Platelet Count 281 10^3/uL (150-450); Red Blood Count 4.71 10^6/uL (4.20-5.40); Red Cell Distribution Width 12.9 % (11.0-15.0)
[2023-10-04 12:58] LABS: Alanine Aminotransferase 19 U/L (14-59); Aspartate Amino Transferase 13 U/L (15-37); Triglycerides 55 mg/dL (<=150)
== END 2023-10-04 12:12 | disposition home or self-care (01) ==
LOC: LAB 12:14
PROVIDERS: PCP Family Medicine
DX: Z79.899 Other long term (current) drug therapy (principal); L70.0 Acne vulgaris
CPT/HCPCS: 36415; 84450; 84460; 84478; 85025

== ENCOUNTER 2024-05-18 17:46 | Emergency (ER) | payer OTHER, SELFPAY ==
--- OUTSIDE RECORDS SUMMARY | 2024-05-18 17:53 | XMS_ITS | CCD ---
Author Organization [facility] Care Team Providers Care Insurance Follow Up Specialist Name Role Phone PROVIDER, UNKNOWN Admitting Unavailable PATIENT, SELF Referring Unavailable BELKYS CARABALLO Attending Unavailable Shaun Aviles Unavailable SHWETA GONZALEZ Primary Care Physician Unavailab DO Denys Camejo Attending Provider DO Shaun Aviles Primary Care Provider Ghanshyam Nieto Referring Provider [phone] TRACI, DR DUNN Primary Care Unavailable YOSELIN, DR CHACON Consulting Unavailable YOSELIN, DR CHACON Attending Unavailable YOSELIN, DR CHACON Admitting Unavailable ZIEBER, DR ILENE Myers Consulting Unavailable TRACI, DR DUNN Primary Care Unavailable TRACI, DR DUNN Consulting Unavailable TRACI, DR DUNN Attending Unavailable TRACI, DR DUNN Admitting Unavailable YOSELIN, DR CHACON Attending Unavailable MISC, DR JOHNSON Primary Care Unavailable YOSELIN, DR CHACON Admitting Unavailable MISC, DR JOHNSON Primary Care Unavailable YOSELIN, DR CHACON Admitting Unavailable YOSELIN, DR CHACON Consulting Unavailable YOSELIN, DR CHACON Attending Unavailable ADACHRISTIANO CrockerKYLE Consulting Unavailable SHARPLYLA Consulting Unavailable GEMBUSRONITEL Consulting Unavailable MISC, DR JOHNSON Primary Care Unavailable YOSELIN, DR CHACON Admitting Unavailable YOSELIN, DR CHACNO Consulting Unavailable YOSELIN, DR CHACON Attending Unavailable MISC, DR JOHNSON Primary Care Unavailable YOSELIN, DR CHACON Admitting Unavailable YOSELIN, DR CHACON Attending Unavailable MISC, DR JOHNSON Primary Care Unavailable ALECIA CABRERA Consulting Unavailable ALECIA CABRERA Attending Unavailable ALECIA CABRERA Admitting Unavailable TRACI, DR DUNN Primary Care Unavailable INES SAINZ Attending Unavailable INES SAINZ Admitting Unavailable INES SAINZ Consulting Unavailable ZIEBER, DR ILENE Myers Consulting Unavailable KUNS, DR DUNN Primary Care Unavailable HAY, DR MANJARREZ Attending Unavailable HAY, DR MANJARREZ Admitting Unavailable GRECHRYAN, JUANJO VELOZ Consulting Unavailable HAY, DR MANJARREZ Consulting Unavailable KUNS, DR DUNN Attending Unavailable KUNS, DR DUNN Admitting Unavailable WEST, DR MELINDA Blake Consulting Unavailable KUNS, DR DUNN Primary Care Unavailable ZIEBER, DR ILENE Myers Consulting Unavailable KUNS, DR DUNN Consulting Unavailable YOSELIN, DR CHACON Attending Unavailable MISC, DR JOHNSON Primary Care Unavailable YOSELIN, DR CHACON Admitting Unavailable YOSELIN, DR CHACON Consulting Unavailable YOSELIN, DR CHACON Attending Unavailable YOSELIN, DR CHACON Admitting Unavailable YOSELIN, DR CHACON Consulting Unavailable MISC, DR JOHNSON Primary Care Unavailable MISC, DR JOHNSON Primary Care Unavailable YOSELIN, DR CHACON Admitting Unavailable YOSELIN, DR CHACON Consulting Unavailable YOSELIN, DR CHACON Attending Unavailable ZIEBER, DR ILENE Myers Consulting Unavailable Kuns, Shaun Primary Care Provider [phone] DO Denys Pearson Attending Provider [phone] Nicoláss, DO Shaun Primary Care Provider Michel, DO Mcfarlane Attending Provider Nicoláss, DO Dunn Attending Provider Rell Marinelli Unavailable Lj Stanton Unavailable Mirna Mcmullen Attending Unavailable Nicoláss, DO Shaun Primary Care Provider Kuns, DO Dunn Attending Provider Nicoláss, DO Shaun Primary Care Provider [phone] Nicoláss, DO Dunn Attending Provider ERIKA Stanton Attending Provider MD Willie Lambert Attending Provider Willie Lambert Unavailable Traci, DO Dunn Primary Care Provider MD Gail Lawrence Attending Provider DO Shaun Aviles Attending Provider Shaun Aviles Attending Unavailable Nicoláss, Shaun Admitting Unavailable Kuns, Shaun Primary Care Unavailable Kuns, Shaun Primary Care Unavailable Nicoláss, Shaun Attending Unavailable Nicoláss, Shaun Admitting Unavailable Lj Stanton Admitting Unavailable Lj Stanton Attending Unavailable Nicoláss, Shaun Primary Care Unavailable Willie Lambert Admitting Unavailable Willie Lambert Attending Unavailable Nicoláss, Shaun Primary Care Unavailable Gail Lawrence Admitting Unavailable Gail Lawrence Attending Unavailable Traci, Shaun Primary Care Unavailable DO Shaun Aviles Primary Care Provider [phone] Allergies Allergy Classification Reported Allergen(s) Allergy Type Date of Onset Reaction(s) Facility Latex (1 source) Latex Substance Allergy 04-15-[address] [facility] NSAIDs (1 source) Ibuprofen Drug Allergy 04-15-20 Diarrhea, tongue sores [facility] Quinolones (antibiotic) (1 source) Ciprofloxacin Drug Allergy 04-15-[address] [facility] Sulfonamides (antibiotic) (2 sources) Sulfacetamide Drug Allergy 04-15-20 [facility] (20 sources) Ibuprofen; Translations: [IBUPROFEN] Drug Allergy 09-06-20 15 tongue sores, Ulcer, Unknown Reaction, Diarrhea, Diarrhea, tongue sores [facility] (15 sources) Latex; Translations: [LATEX] Propensity to adverse reactions to drug (disorder) 09-06-20 15 Rash, Unknown [facility] (1 source) Sulfonamides (Antibiotic); Translations: [SULFA ANTIBIOTICS] Propensity to adverse reactions to drug (disorder) 09-06-20 15 [facility] (20 sources) Sulfacetamide Drug Allergy 10-16-19 [facility] (10 sources) Sulfonamides (Antibiotic); Translations: [Sulfa (Sulfonamide Antibiotics)] Allergy to substance 04-28-20 Unknown Reaction, [facility] (2 sources) Adhesive agent Drug allergy (disorder) [facility] (3 sources) Ibuprofen; Translations: [Motrin] Drug Allergy [facility] (2 sources) Sulfonamides (Antibiotic) Drug allergy (disorder) [facility] (2 sources) Sulfonamides (Antibiotic); Translations: [sulfa drugs] Drug allergy Urticaria (disorder) [facility] (6 sources) Ciprofloxacin Drug Allergy 07-23-[address] [facility] (1 source) Ciprofloxacin Drug Allergy 10-16-[address] [facility] (1 source) Sulfacetamide Drug Allergy 10-16-[address] [facility] Medications Current Medications Medication Drug Class(es) Dates Sig (Normalized) Sig (Original) acetaminophen 325 mg / oxyCODONE hydrochloride 5 mg oral tablet (1 source) Opioid Agonist Start: 07-01-2023 Percocet 5 mg-325 mg oral tablet 1 tab(s), Oral, q6hr, 5 tab(s), Refill(s) 0 Start Date: 07/01/23 Status: Ordered ALPRAZolam 1 mg oral tablet (20 sources) Benzodiazepine Start: 08-21-2023 take 1 tablet by mouth twice daily Alprazolam (Xanax) 1 mg Tablet Active 1 MG PO Twice daily August 21, 2023 1:00am Start: 07-26-2023 take 1 tablet by mamie th once daily as needed Xanax 1 MG 1 tablet Orally once a day PRN for medical/dental procedures PRN Jul, Active Start: 08-21-2022 take 1 tablet by mamie th once daily as needed Xanax 1 MG 1 tablet Orally once a day PRN for medical/dental procedures PRN Aug, Active Start: 04-28-2022 End: 05-01-2022 take 1 tablet by mouth three times daily as needed for anxiety Xanax 0.5 mg Tab 0.5 mg = 1 tab(s), Oral, TID, PRN for anxiety, X 3 day(s), # 12 tab(s), Refills(s) 0, Pharmacy: [id number], 160, cm, 04/28/22 16:08:00 EDT, Height/Length Dosing, 63, kg, 04/28/22 16:08:00 EDT, Weight Dosing Start Date: 04/28/22 Stop Date: 05/01/22 Status: Ordered Start: 12-15-2021 take 1 tablet by mamie th once daily as needed Xanax 0.5 MG 1 tablet Orally once a day PRN PRN Dec, Active Start: 11-08-2021 take 1 tablet by mamie th once daily as needed Xanax 0.5 MG 1 tablet Orally once a day PRN PRN Nov, Active Start: 09-26-2021 take 1 tablet by mamie th once daily as needed Xanax 0.5 MG 1 tablet Orally once a day PRN Sep, Active biotin 10 mg oral capsule (2 sources) Start: 01-29-2024 take 74268 ug by mouth once daily Biotin Active 09487 MCG PO Daily January 29, 2024 12:00am {21 (desogestrel 0.15 MG / ethinyl estradiol 0.03 MG Oral Tablet) / 7 (inert ingredients 1 MG Oral Tablet) } Pack [Apri 28 Day] (4 sources) Progestin, Estrogen take 1 tablet by mouth every twenty-four hours Apri 0.15-30 MG-MCG 1 tablet Orally Once a day Active dicyclomine hydrochloride 20 mg oral tablet (3 sources) Anticholinergic Start: 01-25-2024 take 1 tablet by mouth three times daily Dicyclomine Active 1 TAB PO Three times daily January 25, 2024 12:00am FreeTextSi tablet Orally Three times a day; Note: Source Status: Start; Refills: 11; Provider: Romy Underwood Start: 10-16-2023 take 1 tablet by mamie th every eight hours Dicyclomine HCl 20 MG 1 tablet Orally Three times a day for 30 days Oct, Active ISOtretinoin 20 mg oral capsule (2 sources) Retinoid Start: 01-29-2024 take 1 capsule by mouth once daily Isotretinoin (Accutane) 20 mg capsule Active PO Daily January 29, 2024 12:00am lumateperone 42 mg oral capsule (20 sources) Start: 08-21-2023 take 1 capsule by mouth once daily at bedtime Lumateperone (Caplyta) 42 mg capsule Active 42 MG PO Daily at bedtime August 21, 2023 1:00am Lili Root 500 MG (5 sources) Lili Root 500 MG as directed Orally Active metFORMIN hydrochloride 500 mg oral tablet (6 sources) Biguanide take 1 tablet by mouth every twenty-four hours metFORMIN HCl 500 MG 1 tablet with a meal Orally Once a day Active mirtazapine 15 mg oral tablet (20 sources) Start: 01-25-2024 take 1 tablet by mouth once daily Mirtazapine (Remeron) 15 mg tablet Active 15 MG PO Daily January 25, 2024 12:00am Start: 01-25-2024 take 1 tablet by mamie th once daily Mirtazapine (Remeron) 30 mg tablet Active 30 MG PO Daily January 25, 2024 12:00am Start: 08-21-2023 End: 01-25-2024 take 45 mg by mouth once daily at bedtime Mirtazapine Discontinued 45 MG PO Daily at bedtime August 21, 2023 1:00am January 25, 2024 12:23pm take 1 tablet by mamie th every twenty-four hours Remeron 15 MG 1 tablet Orally Once a day along with a 30 mg Active take 1 tablet by mamie th every twenty-four hours Remeron 30 MG 1 tablet Orally Once a day along with a 15 mg Active ondansetron 4 mg disintegrating oral tablet (8 sources) Serotonin-3 Receptor Antagonist Start: 12-06-2023 take 4 mg by mouth every six hours Ondansetron Active 4 MG PO Every 6 hours December 06, 2023 1:00am take 1 tablet by mamie th three times daily as needed for nausea Ondansetron 4 MG 1 tablet on the tongue and allow to dissolve Orally Three times a day as needed for nausea Active pantoprazole 40 mg delayed release oral tablet (1 source) Proton Pump Inhibitor Start: 04-15-2024 take 40 mg by mouth once daily Pantoprazole Active 40 MG PO Daily April 15, 2024 12:00am Zofran ODT 4 mg Tab-Dis (1 source) Start: 07-01-2023 take 1 tablet by mouth every eight hours Zofran ODT 4 mg Tab-Dis 4 mg = 1 tab(s), Oral, q8hr, # 10 tab(s), Refills(s) 0, Pharmacy: [id number], 160, cm, 07/01/23 17:58:00 EDT, Height/Length Dosing, 70.2, kg, 07/01/23 17:58:00 EDT, Weight Dosing Start Date: 07/01/23 Status: Ordered Completed/Discontinued Medications Medication Drug Class(es) Dates Sig (Normalized) Sig (Original) acetaminophen 300 mg / codeine phosphate 30 mg oral tablet (6 sources) Opioid Agonist Start: 03-28-2022 take 1 tablet by mouth every six hours Acetaminophen-Code ine #3 300-30 MG 1 tablet as needed Orally every 6 hrs Mar, Not-Taking ethinyl estradiol 0.03 mg / norethindrone acetate 1.5 mg oral tablet (11 sources) Estrogen take 1 tablet by mouth every twenty-four hours Alpesh 1.5/30 1.5-30 MG-MCG 1 tablet Orally Once a day Not-Taking lamoTRIgine 25 mg oral tablet (6 sources) Mood Stabilizer, Anti-epileptic Agent take 1 tablet by mouth once daily at bedtime LaMICtal 25 MG 1 tablets Orally QHS Not-Taking tiZANidine 4 mg oral tablet (6 sources) Central alpha-2 Adrenergic Agonist Start: 03-28-2022 Zanaflex 4 MG 1-2 tablet as needed Orally at bedtime Mar, Not-Taking topiramate 50 mg oral tablet (2 sources) Start: 01-29-2024 End: 04-15-2024 take 1 tablet by mouth twice daily Topiramate (Topamax) 50 mg tablet Discontinued 50 MG PO Twice daily January 29, 2024 12:00am April 15, 2024 2:06pm Toradol 30 mg/ml (20 sources) Start: 03-30-2022 Start: 03-30-2022 Toradol 30 mg/ ml Mar, 60 mg Start: 03-28-2022 Start: 03-28-2022 Toradol 30 mg/ ml Mar, 60 mg Problems Active Problems Problem Classification Problem Date Documented Da te Episodic/Chronic Abdominal pain (17 sources) Pelvic and perineal pain; Translations: [Pelvic and perineal pain] Onset: 07-03-2022 Episodic Anxiety disorders (20 sources) Mixed anxiety and depressive disorder; Translations: [Other specified anxiety disorders] Onset: 09-26-2021 Resolved: 01-19-2022 Chronic Contraceptive and procreative management (2 sources) Tubal ligation status; Translations: [Encounter for sterilization] Onset: 07-03-2022 Episodic Deficiency and other anemia (20 sources) Anemia; Translations: [Anemia, unspecified] Episodic Disorders of lipid metabolism (2 sources) Hyperlipidemia; Translations: [Hyperlipidemia, unspecified] 01-29-2024 Chronic Gastrointestinal hemorrhage (8 sources) Rectal hemorrhage; Translations: [Hemorrhage of anus and rectum] Episodic Hemorrhoids (2 sources) Hemorrhoids; Translations: [Unspecified hemorrhoids] 04-15-2024 Episodic Intestinal infection (1 source) Clostridium difficile diarrhea 06-02-2022 Episodic Comment on above: Problem added second flakito to documenting Active C-Diff. Menstrual disorders (6 sources) Excessive and frequent menstruation with irregular cycle; Translations: [Dysmenorrhea, unspecified] Onset: 06-25-2022 Chronic Mood disorders (1 source) Major depressive disorder, single episode, unspecified; Translations: [CRESENCIO DEPRESS D/O SINGLE EPIS UNS] Onset: 07-06-2022 Chronic Nonmalignant breast conditions (20 sources) Discharge from nipple; Translations: [Nipple discharge] Onset: 11-07-2021 Resolved: 03-28-2022 Episodic Nutritional deficiencies (20 sources) Vitamin D deficiency; Translations: [Vitamin D deficiency, unspecified] Onset: 11-07-2021 Resolved: 11-07-2021 Chronic Other aftercare (1 source) 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; Translations: [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 THERAPY] Onset: 07-10-2022 Episodic Other and unspecified benign neoplasm (4 sources) Benign neoplasm of left breast; Translations: [Benign neoplasm of breast] Onset: 01-22-2024 Episodic Other and unspecified benign neoplasm (2 sources) Fibroadenoma of breast; Translations: [Benign neoplasm of left breast] 01-29-2024 Episodic Other gastrointestinal disorders (2 sources) Irritable bowel syndrome with diarrhea; Translations: [Irritable bowel syndrome with diarrhea] 01-29-2024 Chronic Other gastrointestinal disorders (2 sources) Irritable bowel syndrome; Translations: [Irritable bowel syndrome without diarrhea] 01-29-2024 Chronic Other gastrointestinal disorders (3 sources) Irritable bowel syndrome with diarrhea; Translations: [Irritable bowel syndrome] 01-29-2024 Chronic Other gastrointestinal disorders (5 sources) Constipation alternates with diarrhea; Translations: [Other specified symptoms and signs involving the digestive system and abdomen] Episodic Other gastrointestinal disorders (1 source) Heartburn Episodic Other lower respiratory disease (9 sources) Cough; Translations: [Cough] Episodic Other lower respiratory disease (8 sources) Breathing painful; Translations: [Pleurodynia] Episodic Other nervous system disorders (14 sources) Chronic pain; Translations: [Other chronic pain] 12-06-2023 Chronic Other nervous system disorders (1 source) Other chronic pain Chronic Other nervous system disorders (17 sources) Paresthesia of hand ; Translations: [Paresthesia of skin] Episodic Other nervous system disorders (4 sources) Other acute postprocedural pain; Translations: [OTHER ACUTE POSTPROCEDURAL PAIN] Onset: 07-02-2022 Episodic Other nutritional; endocrine; and metabolic disorders (8 sources) Weight loss; Translations: [Abnormal weight loss] Episodic Other screening for suspected conditions (not mental disorders or infectious disease) (20 sources) Mammography abnormal; Translations: [Other abnormal and inconclusive findings on diagnostic imaging of breast] Onset: 09-26-2021 Resolved: 12-15-2021 Episodic Other skin disorders (15 sources) Acne; Translations: [Acne, unspecified] 12-06-2023 Episodic Other skin disorders (1 source) Acne, unspecified Episodic Other skin disorders (1 source) Acne vulgaris; Translations: [Acne vulgaris] Onset: 12-27-2023 Episodic Other upper respiratory infections (15 sources) Upper respiratory infection; Translations: [Acute upper respiratory infection, unspecified] Episodic Personality disorders (20 sources) Borderline personality disorder; Translations: [Borderline personality disorder] Onset: 01-19-2022 Resolved: 01-19-2022 Chronic Phlebitis; thrombophlebitis and thromboembolism (5 sources) Acute embolism and thrombosis of other specified veins; Translations: [ACUTE EMBO THROMB OTH SPEC VEINS] Onset: 07-10-2022 Episodic Residual codes; unclassified (20 sources) Insomnia; Translations: [Insomnia, unspecified] 12-06-2023 Episodic Residual codes; unclassified (20 sources) Verbal auditory hallucinations; Translations: [Auditory hallucinations] Episodic Residual codes; unclassified (1 source) Other specified postprocedural states; Translations: [OTH SPECIFIED POSTPROCEDURAL STATES] Onset: 07-10-2022 Episodic Residual codes; unclassified (2 sources) Difficulty sleeping ; Translations: [Sleep disorder, unspecified] 01-29-2024 Episodic Residual codes; unclassified (2 sources) Sleep disorder, unspecified; Translations: [Sleep disturbance, unspecified] 01-29-2024 Episodic Schizophrenia and other psychotic disorders (20 sources) Schizophrenia; Translations: [Schizophrenia, unspecified] Chronic Spondylosis; intervertebral disc disorders; other back problems (20 sources) Neck pain; Translations: [Cervicalgia] Onset: 03-28-2022 Resolved: 03-28-2022 Episodic Substance-related disorders (1 source) Smoker 06-02-2022 Chronic Comment on above: Added secondary to d ocumentation in Social History. Unclassified (1 source) CONTACT W/AND (SUSP) EXPOS COVID-19; Translations: [CONTACT W/AND (SUSP) EXPOS COVID-19] Onset: 07-10-2022 Unclassified (1 source) Pyuria; Translations: [PYURIA] Onset: 07-03-2022 Unclassified (1 source) Hemorrhage of anus and rectum; Translations: [Hemorrhage of anus and rectum] Onset: 08-22-2023 Unclassified (1 source) Unspecified lump in the left breast, upper outer quadrant; Translations: [Unspecified lump in the left breast, upper outer quadrant] Onset: 07-17-2023 Past or Other Problems Problem Classification Problem Date Documented Da te Episodic/Chronic Deficiency and other anemia (3 sources) Anemia, unspecified; Translations: [ANEMIA UNSPECIFIED] Onset: 09-26-2021 Resolved: 11-07-2021 Episodic Fluid and electrolyte disorders (2 sources) Dehydration; Translations: [Hypokalemia] Onset: 11-25-2021 Episodic Immunizations and screening for infectious disease (6 sources) Encounter for screening for infections with a predominantly sexual mode of transmission; Translations: [Encounter for screening for human papillomavirus (HPV)] Onset: 12-28-2021 Episodic Other bone disease and musculoskeletal deformities (1 source) Segmental and somatic dysfunction of cervical region Onset: 03-28-2022 Resolved: 03-28-2022 Episodic Other bone disease and musculoskeletal deformities (1 source) Segmental and somatic dysfunction of thoracic region Onset: 03-28-2022 Resolved: 03-28-2022 Episodic Other bone disease and musculoskeletal deformities (1 source) Segmental and somatic dysfunction of rib cage Onset: 03-28-2022 Resolved: 03-28-2022 Episodic Other female genital disorders (5 sources) Other specified noninflammatory disorders of vagina; Translations: [OTH SPEC NONINFLAMMATORY D/O VAGINA] Onset: 12-28-2021 Episodic Other gastrointestinal disorders (4 sources) Diarrhea, unspecified; Translations: [DIARRHEA UNSPECIFIED] Onset: 11-23-2021 Episodic Other gastrointestinal disorders (4 sources) Other specified symptoms and signs involving the digestive system and abdomen; Translations: [Other specified symptoms and signs involving the digestive system and abdomen] Onset: 08-15-2023 Episodic Other infections; including parasitic (1 source) Personal history of other infectious and parasitic diseases Onset: 12-15-2021 Resolved: 12-15-2021 Episodic Other lower respiratory disease (3 sources) Pleurodynia; Translations: [PLEURODYNIA] Onset: 11-07-2021 Resolved: 12-15-2021 Episodic Other nervous system disorders (1 source) Paresthesia of skin Onset: 03-28-2022 Resolved: 03-28-2022 Episodic Other nutritional; endocrine; and metabolic disorders (3 sources) Abnormal weight loss; Translations: [ABNORMAL WEIGHT LOSS] Onset: 09-26-2021 Resolved: 11-07-2021 Episodic Residual codes; unclassified (4 sources) Insomnia, unspecified Onset: 09-26-2021 Resolved: 03-28-2022 Episodic Residual codes; unclassified (2 sources) Auditory hallucinations Onset: 09-26-2021 Resolved: 11-07-2021 Episodic Unclassified (1 source) Other low back pain M54.59 Results Test Name Value Interpretation Reference Range Facility US breast LT limited 01-21 US breast LT limited [facility] [place] [address] Ultrasound Report Signed Patient: Brian Sullivan MR#: [id number] 7 : 1995 Acct:[id number] Age/Sex: 28 / F ADM Date: 01/22/24 Loc: [facility] Room: Type: [facility] Attending Dr: Shaun Aviles DO Ordering Provider: Shaun Aviles DO Date of Service: 01/22/24 US/US breast LT limited: Fibroadenoma of left breast Copies to: Shaun Aviles DO LIMITED LEFT BREAST ULTRASOUND CLINICAL DATA: History of fibroepithelial lesion on biopsy COMPARISON: November 15, 2021 through July 17, 2023 Real-time ultrasound evaluation at the superior left breast was performed. At the 11:00 position, 5 cm from the nipple there is redemonstration of a lobulated hypoechoic nodular area with an associated biopsy marking clip. It measures 14 x 6 x 13 mm, not significantly changed. At 1:00, 6 cm from the nipple, there is a reniform hypoechoic nodule which may be an intramammary lymph node. It measures approximately 12 x 4 x 8 mm in size. US/US breast LT limited IMPRESSION: Stable BIOPSY-PROVEN FIBROADENOMA. INTRAMAMMARY LYMPH NODE WITH BENIGN CHARACTERISTICS. Impression dictated by: Cassandra Rubio M.D.01/22/2024 11:12 AM Dictation Location: [facility] Tech: Jennifer Oli Transcribed By: SABA 01/22/24 1112 Dictated By: Cassandra Rubio MD 01/22/24 1044 Signed By: 01/22/24 1112 Normal [facility] Alanine Aminotransferaseon 0 12-27-2023 ALT [Catalytic activity/Vol] 9 U/L Normal [facility] Comment on above: Performed By: #### A ST, ALT, TRIG, CBC #### [facility] [address] Alanine aminotransferase [En zymatic activity/volume] in Serum or PlasmaOrdered By: Gail Lawrence on 12-27-2023 ALT [Catalytic activity/Vol] 9 U/L [address] [facility] Aspartate Amino Transferaseo n 12-27-2023 AST [Catalytic activity/Vol] 18 U/L Normal 13-39 [facility] Comment on above: Performed By: #### A ST, ALT, TRIG, CBC #### [facility] [address] [place] [address] [place] Aspartate aminotransferase [ Enzymatic activity/volume] in Serum or PlasmaOrdered By: Gail Lawrence on 12-27-2023 AST [Catalytic activity/Vol] 18 U/L 13-[address] [facility] Basophils Auto (Bld) [#/Vol] Ordered By: Gail Lawrence on 12-27-2023 Basophils (Bld) [#/Vol] 0.0 10*3/uL 0.0-0.[address] [facility] Basophils/100 WBC Auto (Bld) Ordered By: Gail Lawrence on 12-27-2023 Basophils/100 WBC (Bld) 0.1 % . [facility] Complete Blood Count Auto Di ffon 12-27-2023 Basophils (Bld) [#/Vol] 0.0 10*3/uL Normal 0.0-0.2 [facility] Comment on above: Result Comment: PERF ORMED BY: [place] [address] PATHOLOGIST PATTERN CHANGER AND REPAIRER ALBA SCHULTE M.D. Performed By: #### A ST, ALT, TRIG, CBC #### 93 [address] Basophils/100 WBC (Bld) 0.1 % Normal . [facility] Comment on above: Performed By: #### A ST, ALT, TRIG, CBC #### [place] [address] [place] Eosinophils (Bld) [#/Vol] 0.0 10*3/uL Normal 0.0-0.45 [facility] Comment on above: Performed By: #### A ST, ALT, TRIG, CBC #### [address] Eosinophils/100 WBC (Bld) 0.0 % Normal . [facility] Comment on above: Performed By: #### A ST, ALT, TRIG, CBC #### [place] [address] [place] Erythrocyte distribution width (RBC) [Ratio] 14.1 % Normal 11.9-15.3 [facility] Comment on above: Performed By: #### A ST, ALT, TRIG, CBC #### [place] [address] [place] Hematocrit (Bld) [Volume fraction] 37.9 % Normal 34.0-46.4 [facility] Comment on above: Performed By: #### A ST, ALT, TRIG, CBC #### [address] Hemoglobin (Bld) [Mass/Vol] 12.6 g/dL Normal 11.8-15.4 [facility] Comment on above: Performed By: #### A ST, ALT, TRIG, CBC #### [address] Lymphocytes (Bld) [#/Vol] 1.9 10*3/uL Normal 1.00-4.8 [facility] Comment on above: Performed By: #### A ST, ALT, TRIG, CBC #### [address] Lymphocytes/100 WBC (Bld) 29.2 % Normal . [facility] Comment on above: Performed By: #### A ST, ALT, TRIG, CBC #### [address] MCH (RBC) [Entitic mass] 26.8 pg Normal 24.7-34.3 [facility] Comment on above: Performed By: #### A ST, ALT, TRIG, CBC #### [address] MCV (RBC) [Entitic vol] 80.5 fL Normal 80-100 [facility] Comment on above: Performed By: #### A ST, ALT, TRIG, CBC #### [address] Mean Corpuscular HGB Conc 33.3 g/dL Normal 32.0-35.0 [facility] Comment on above: Performed By: #### A ST, ALT, TRIG, CBC #### [place] [address] [place] Monocytes (Bld) [#/Vol] 0.4 10*3/uL Normal 0.0-0.8 [facility] Comment on above: Performed By: #### A ST, ALT, TRIG, CBC #### [place] [address] [place] Monocytes/100 WBC (Bld) 5.7 % Normal . [facility] Comment on above: Performed By: #### A ST, ALT, TRIG, CBC #### [address] Neutrophils (Bld) [#/Vol] 4.2 10*3/uL Normal 1.8-7.7 [facility] Comment on above: Performed By: #### A ST, ALT, TRIG, CBC #### [address] Neutrophils/100 WBC (Bld) 65.0 % Normal . [facility] Comment on above: Performed By: #### A ST, ALT, TRIG, CBC #### [address] NRBC% 0.0 /100{WBC} Normal 0-0.5 [facility] Comment on above: Performed By: #### A ST, ALT, TRIG, CBC #### [address] Platelet mean volume (Bld) [Entitic vol] 6.7 fL Normal 6.3-10.7 [facility] Comment on above: Performed By: #### A ST, ALT, TRIG, CBC #### [place] [address] [place] Platelets (Bld) [#/Vol] 284 10*3/uL Normal 150-450 [facility] Comment on above: Performed By: #### A ST, ALT, TRIG, CBC #### [address] RBC (Bld) [#/Vol] 4.71 10*6/uL Normal 3.60-5.00 [facility] Comment on above: Performed By: #### A ST, ALT, TRIG, CBC #### [place] [address] [place] WBC (Bld) [#/Vol] 6.5 10*3/uL Normal 3.8-11.6 [facility] Comment on above: Performed By: #### A ST, ALT, TRIG, CBC #### [facility] [address] [id number] [facility] Eosinophils Auto (Bld) [#/Vo l]Ordered By: Gail Lawrence on 12-27-2023 Eosinophils (Bld) [#/Vol] 0.0 10*3/uL 0.0-0.[address] [facility] Eosinophils/100 WBC Auto (Bl d)Ordered By: Gail Lawrence on 12-27-2023 Eosinophils/100 WBC (Bld) 0.0 % . [facility] Erythrocyte distribution wid th Auto (RBC) [Ratio]Ordered By: Gail Lawrence on 12-27-2023 Erythrocyte distribution width (RBC) [Ratio] 14.1 % 11.9-15.[address] [facility] Hematocrit Auto (Bld) [Volum e fraction]Ordered By: Gail Lawrence on 12-27-2023 Hematocrit (Bld) [Volume fraction] 37.9 % 34.0-46.[address] [facility] Hemoglobin [Mass/volume] in BloodOrdered By: Gail Lawrence on 12-27-2023 Hemoglobin (Bld) [Mass/Vol] 12.6 g/dL 11.8-15.[address] [facility] Leukocytes [#/volume] correc frieda for nucleated erythrocytes in Blood by Automated counOrdered By: Gail Lawrence on 12-27-2023 WBC corrected for nucl RBC Auto (Bld) [#/Vol] 6.5 10*3/uL 3.8-11.[address] [facility] Lymphocytes Auto (Bld) [#/Vo l]Ordered By: Gail Lawrence on 12-27-2023 Lymphocytes (Bld) [#/Vol] 1.9 10*3/uL 1.00-4.[address] [facility] Lymphocytes/100 WBC Auto (Bl d)Ordered By: Gail Lawrence on 12-27-2023 Lymphocytes/100 WBC (Bld) 29.2 % . [facility] MCH Auto (RBC) [Entitic mass ]Ordered By: Gail Lawrence on 12-27-2023 MCH (RBC) [Entitic mass] 26.8 pg 24.7-34.[address] [facility] MCHC Auto (RBC) [Mass/Vol]Or dered By: Gail Lawrence on 12-27-2023 MCHC (RBC) [Mass/Vol] 33.3 g/dL 32.0-35.0 [facility] MCV Auto (RBC) [Entitic vol] Ordered By: Gail Lawrence on 12-27-2023 MCV (RBC) [Entitic vol] 80.5 fL 80-[address] [facility] Monocytes Auto (Bld) [#/Vol] Ordered By: Gail Lawrence on 12-27-2023 Monocytes (Bld) [#/Vol] 0.4 10*3/uL 0.0-0.[address] [facility] Monocytes/100 WBC Auto (Bld) Ordered By: Gail Lawrence on 12-27-2023 Monocytes/100 WBC (Bld) 5.7 % . [facility] Neutrophils Auto (Bld) [#/Vo l]Ordered By: Gail Lawrence on 12-27-2023 Neutrophils (Bld) [#/Vol] 4.2 10*3/uL 1.8-7.[address] [facility] Neutrophils/100 WBC Auto (Bl d)Ordered By: Gail Lawrence on 12-27-2023 Neutrophils/100 WBC (Bld) 65.0 % . [facility] Nucleated erythrocytes [Pres ence] in Blood by Automated countOrdered By: Gail Lawrence on 12-27-2023 Nucleated RBC Auto Ql (Bld) 0.0 /100{WBC} 0-0.[address] [facility] Platelet mean volume Auto (B ld) [Entitic vol]Ordered By: Gail Lawrence on 12-27-2023 Platelet mean volume (Bld) [Entitic vol] 6.7 fL 6.3-10.[address] [facility] Platelets Auto (Bld) [#/Vol] Ordered By: Gail Lawrence on 12-27-2023 Platelets (Bld) [#/Vol] 284 10*3/uL 150-[address] [facility] RBC Auto (Bld) [#/Vol]Ordere d By: Gail Lawrence on 12-27-2023 RBC (Bld) [#/Vol] 4.71 10*6/uL 3.60-5.[address] [facility] Triglyceride [Mass/volume] i n Serum or PlasmaOrdered By: Gail Lawrence on 12-27-2023 Triglyceride [Mass/Vol] 78 mg/dL 35-[address] [facility] Comment on above: TRIG ATP III CLASSIF ICATIONTRIG less than 150 mg/dL NormalTRIG 150-199 mg/dL Borderline highTRIG 200-500 mg/dL High TRIG greater than 500 mg/dL Very highStandard traceable to the Center for Disease Conrtrol and Prevention (CDC) test method. Triglycerideson 12-27-2023 Triglyceride [Mass/Vol] 78 mg/dL Normal 35-149 [facility] Comment on above: Result Comment: TRIG ATP III CLASSIFICATION TRIG less than 150 mg/dL Normal TRIG 150-199 mg/dL Borderline high TRIG 200-500 mg/dL High TRIG greater than 500 mg/dL Very high Standard traceable to the Center for Disease Conrtrol and Prevention (CDC) test method. PERFORMED BY: [place] [address] PATHOLOGIST PATTERN CHANGER AND REPAIRER ALBA SCHULTE M.D. Performed By: #### A ST, ALT, TRIG, CBC #### [address] WBC Auto (Bld) [#/Vol]Ordere d By: Gail Lawrence on 12-27-2023 WBC (Bld) [#/Vol] 6.5 10*3/uL 3.8-11.6 [facility] Amphetamine Screen Ql (U)Ord ered By: Willie Lambert on 08-22-2023 Amphetamines Ql (U) Negative Negative [facility] Barbiturates [Presence] in U rine by Screen methodOrdered By: Willie Lambert on 08-22-2023 Barbiturates Screen Ql (U) Negative Negative [facility] Benzodiazepines Screen Ql (U )Ordered By: Willie Lambert on 08-22-2023 Benzodiazepines Ql (U) Negative Negative [facility] Benzoylecgonine [Presence] i n Urine by Screen methodOrdered By: Willie Lambert on 08-22-2023 Benzoylecgonine Screen Ql (U) Negative Negative [facility] Cannabinoids [Presence] in U rine by Screen methodOrdered By: Willie Lambert on 08-22-2023 Cannabinoids Screen Ql (U) Positive Negative [facility] Comment on above: These are unconfirme d results and should not be used for legal purposes. Drug Cut-Off Concentration: AMPH 1000 ng/mL SENG 200 ng/mL DAVIDA 200 ng/mL COCM 300 ng/mL OP 300 ng/mL PCP 25 ng/mL THC 20 ng/mL Drug Screen,Urineon 08-22-20 Amphetamine Screen,Urine Negative Normal Negative [facility] Comment on above: Performed By: #### U RDS #### [address] Barbiturate Screen,Urine Negative Normal Negative [facility] Comment on above: Performed By: #### U RDS #### [address] Benzodiazepines Screen,Urine Negative Normal Negative [facility] Comment on above: Performed By: #### U RDS #### [address] Cannabinoid Screen,Urine Positive High Negative [facility] Comment on above: Result Comment: Thes e are unconfirmed results and should not be used for legal purposes. Drug Cut-Off Concentration: AMPH 1000 ng/mL SENG 200 ng/mL DAVIDA 200 ng/mL COCM 300 ng/mL OP 300 ng/mL PCP 25 ng/mL THC 20 ng/mL PERFORMED BY: [place] [address] PATHOLOGIST PATTERN CHANGER AND REPAIRER ALBA SCHULTE M.D. Performed By: #### U RDS #### [address] Cocaine Screen,Urine Negative Normal Negative [facility] Comment on above: Performed By: #### U RDS #### [place] [address] [place] Opiate Screen,Urine Negative Normal Negative [facility] Comment on above: Performed By: #### U RDS #### [place] [address] [place] Phencyclidine Screen,Urine Negative Normal Negative [facility] Comment on above: Performed By: #### U RDS #### [facility] [address] [id number] [facility] HCG ( test) SHANDAyan cash Ql (U)Ordered By: Willie Lambert on 08-22-2023 HCG ( test) Ql (U) Negative [facility] HCG,Urineon 08-22-2023 Beta HCG ( test) Ql (U) Negative Normal [facility] Comment on above: Result Comment: PERF ORMED BY: [place] [address] PATHOLOGIST PATTERN CHANGER AND REPAIRER ALBA SCHULTE M.D. Performed By: #### U HCG #### [facility] [address] [place], [place] [id number] [facility] Harshal 08-22-2023 L - -------- Specimen: [id number] Received: 08/22/23 Status: EDITH Darrin Num: [id number] Spec Type: Surgical Subm Dr: Willie Lambert MD Tissues: A Colon Biopsy (RANDOM COLON BX) Procedures: KENNEDY/Lucie, Gross/Micro L4 -------- Age/ Patient Sex Location Account Attending Physician -------- Brian Sullivan / [id number] Willie Lambert MD -------- SPEC NUM: [id number] RECD: 08/22/23 STATUS: EDITH CAMEJO NUM: [id number] SANTOS: 08/22/23 DR: Willie Lambert MD ENTERED: 08/22/23 [facility] DR: ROBERT TYPE: Surgical DEPT: S ORDERED: HE/2, Gross/Micro L4 ORDERED: HE/2, Gross/Micro L4 Pathological Diagnosis Random colon biopsies: -Colonic mucosa with adequately preserved mucosal glandular architecture, except focal mild chronic inflammation in 1 fragment, and also with tiny associated PMN erosion and mild cryptitis in occasional underneath glands, also compatible with changes of focal active colitis, otherwise without glandular dysplasia, other features of microscopic colitis, or any other significant histomorphological changes observed Clinical Information Rectal bleeding, abdominal pain, constipation, diarrhea Gross Description The specimen is received in formalin labeled with the patient's name designated random colon biopsy and consists of two pantoja-brown, irregular, soft tissue fragments aggregating to 0.4 x 0.3 x 0.2 cm which are submitted in toto in a single cassette labeled A1. Microscopic Description Microscopic examinations performed -------- Specimen: [id number] Received: 08/22/23 Status: EDITH Camejo Num: [id number] Spec Type: Surgical Subm Dr: Willie Lambert MD Tissues: A Colon Biopsy (RANDOM COLON BX) Procedures: Sandip SHER/Bruna L4 -------- Patient: Brian Sullivan [id number] (Continued) -------- Specimen: [id number] Received: 08/22/23 (Continued) Signed (signature on file) Yassine Muniz MD 08/23/23 1833 -------- Specimen: [id number] Received: 08/22/23 Status: EDITH Camejo Num: [id number] Spec Type: Surgical Subm Dr: Willie Lambert MD Tissues: A Colon Biopsy (RANDOM COLON BX) Procedures: Sandip SHER/Bruna L4 -------- Patient: Brian Sullivan [id number] (Continued) -------- Specimen: [id number] Received: 08/22/23 (Continued) CPT Codes 78526 -------- -------- Specimen: [id number] Received: 08/22/23 Status: EDITH Camejo Num: [id number] Spec Type: Surgical Subm Dr: Willie Lambert MD Tissues: A Colon Biopsy (RANDOM COLON BX) Procedures: HE/2, Gross/Micro L4 -------- Patient: Brian Sullivan [id number] (Continued) -------- Signed (signature on file) Yassine Muniz MD 08/23/23 1833 Normal [facility] Opiates [Presence] in Urine by Screen methodOrdered By: Willie Lambert on 08-22-2023 Opiates Screen Ql (U) Negative Negative [facility] Phencyclidine Screen Ql (U)O rdered By: Willie Lambert on 08-22-2023 Phencyclidine Ql (U) Negative Negative [facility] C reactive protein [Mass/vol ume] in Serum or PlasmaOrdered By: Lj Stanton on 08-15-2023 CRP [Mass/Vol] < 0.5 mg/dL 0.0-0.[address] [facility] C-Reactive Proteinon 023 CRP [Mass/Vol] mg/L Normal 0.0-0.5 [facility] Comment on above: Order Comment: Reaso n for Exam Alternating constipation and diarrhea Performed By: #### C USTOOL, CRP, ESR, TSH3 ####[facility] Aun[address]#### OPEXAM, CELIAC, HIV SCREEN, CALPROTECT, ELASTASE STOOL ####[facility] , Calprotectin, Fecalon 2022 Calprotectin, Fecal 8 Normal 0-120 [facility] Comment on above: Order Comment: Reaso n for Exam Alternating constipation and diarrhea Result Comment: Conc entration Interpretation Follow-Up < 5 - 50 ug/g Normal None >50 -120 ug/g Borderline Re-evaluate in 4-6 weeks >120 ug/g Abnormal Repeat as clinically indicated Performed at: [address] [id number] Mold Washer: Viet Taylor MD, Phone: [phone] PERFORMED BY: [facility] [address] [place] [address] PATHOLOGIST PATTERN CHANGER AND REPAIRER ALBA SCHULTE M.D. Performed By: #### C USTOOL, CRP, ESR, TSH3 ####[address]#### OPEXAM, CELIAC, HIV SCREEN, CALPROTECT, ELASTASE STOOL ####[facility] , Celiacon 08-15-2023 Deamidated Gliadin Abs, IgA 9 Normal 0-19 [facility] Comment on above: Order Comment: Reaso n for Exam Alternating constipation and diarrhea Result Comment: Nega tive 0 - 19 Weak Positive 20 - 30 Moderate to Strong Positive >30 Performed By: #### C USTOOL, CRP, ESR, TSH3 ####[address]#### OPEXAM, CELIAC, HIV SCREEN, CALPROTECT, ELASTASE STOOL ####[facility] , Deamidated Gliadin Abs, IgG 4 Normal 0-19 [facility] Comment on above: Order Comment: Reaso n for Exam Alternating constipation and diarrhea Result Comment: Nega tive 0 - 19 Weak Positive 20 - 30 Moderate to Strong Positive >30 Performed By: #### C USTOOL, CRP, ESR, TSH3 ####[address]#### OPEXAM, CELIAC, HIV SCREEN, CALPROTECT, ELASTASE STOOL ####[facility] , Endomysial Antibody IgA Negative Normal Negative [facility] Comment on above: Order Comment: Reaso n for Exam Alternating constipation and diarrhea Performed By: #### C USTOOL, CRP, ESR, TSH3 ####[address]#### OPEXAM, CELIAC, HIV SCREEN, CALPROTECT, ELASTASE STOOL ####[facility] , Immunoglobulin A, Qn, Serum 180 mg/dL Normal 87-352 [facility] Comment on above: Order Comment: Reaso n for Exam Alternating constipation and diarrhea Result Comment: Perf ormed at: - [facility] [address] [id number] Mold Washer: Joey Hoyos PhD, Phone: [phone] Performed By: #### C USTOOL, CRP, ESR, TSH3 ####[address]#### OPEXAM, CELIAC, HIV SCREEN, CALPROTECT, ELASTASE STOOL ####[facility] , T-Transglutaminase (tTG) IgA <2 Normal 0-3 [facility] Comment on above: Order Comment: Reaso n for Exam Alternating constipation and diarrhea Result Comment: Nega tive 0 - 3 Weak Positive 4 - 10 Positive >10 Tissue Transglutaminase (tTG) has been identified as the endomysial antigen. Studies have demonstr- ated that endomysial IgA antibodies have over 99% specificity for gluten sensitive enteropathy. Performed By: #### C USTOOL, CRP, ESR, TSH3 ####[address]#### OPEXAM, CELIAC, HIV SCREEN, CALPROTECT, ELASTASE STOOL ####[facility] , T-Transglutaminase (tTG) IgG 4 Normal 0-5 [facility] Comment on above: Order Comment: Reaso n for Exam Alternating constipation and diarrhea Result Comment: Nega tive 0 - 5 Weak Positive 6 - 9 Positive >9 Performed By: #### C USTOOL, CRP, ESR, TSH3 ####[address]#### OPEXAM, CELIAC, HIV SCREEN, CALPROTECT, ELASTASE STOOL ####[facility] , Elastase.pancreatic [Mass/ma ss] in StoolOrdered By: Lj Stanton on 08-15-2023 Elastase.pancreatic (Stl) [Mass/Mass] 449 >[address] [facility] Comment on above: Result Units: ug [address] st./g Severe Pancreatic Insufficiency: <100 Moderate Pancreatic Insufficiency: 100 - 200 Normal: >200Performed at: [address] [id number] Director: Viet Taylor MD, Phone: [phone] Erythrocyte Sedimentation Ra nikita 08-15-2023 ESR (Bld) [Velocity] 16 mm/h Normal 0-19 [facility] Comment on above: Order Comment: Reaso n for Exam Alternating constipation and diarrhea Result Comment: PERF ORMED BY: [place] [address] PATHOLOGIST PATTERN CHANGER AND REPAIRER ALBA SCHULTE M.D. Performed By: #### C USTOOL, CRP, ESR, TSH3 #### [address] #### OPEXAM, CELIAC, HIV SCREEN, CALPROTECT, ELASTASE STOOL #### [facility] , Erythrocyte sedimentation ra te by Photometric methodOrdered By: Lj Stanton on 08-15-2023 ESR Photometric method (Bld) [Velocity] 16 mm/hr 0-[address] [facility] HIV 1/O/2 Antigen/Antibodyon 08-15-2023 HIV Screen 4th Generation Non-Reactive Normal Non Reactive [facility] Comment on above: Order Comment: Reaso n for Exam Alternating constipation and diarrhea Result Comment: HIV Negative HIV-1/HIV-2 antibodies and HIV-1 p24 antigen were NOT detected. There is no laboratory evidence of HIV infection. Performed at: [address] [id number] Mold Washer: Joey Hoyos PhD, Phone: [phone] PERFORMED BY: [place] [address] PATHOLOGIST PATTERN CHANGER AND REPAIRER ALBA SCHULTE M.D. Performed By: #### C USTOOL, CRP, ESR, TSH3 ####[facility] [id number]#### OPEXAM, CELIAC, HIV SCREEN, CALPROTECT, ELASTASE STOOL ####[facility] , HIV 1 and HIV-2 antibody ass ay with HIV-1 p24 antigen detectionOrdered By: Lj Stanton on 08-15-2023 HIV 1+2 Ab+HIV1 p24 Ag IA Ql Non-Reactive Non Reactive [facility] Comment on above: HIV NegativeHIV-1/HI V-2 antibodies and HIV-1 p24 antigen were NOTdetected. There is no laboratory evidence of HIV infection.Performed at: [facility] [address] [id number] Director: Joey Hoyos PhD, Phone: [phone] IgA [Mass/volume] in Serum o r PlasmaOrdered By: Lj Stanton on 08-15-2023 IgA [Mass/Vol] 180 mg/dL 87-[address] [facility] Comment on above: Performed at: [facility] [address] [id number] Director: Joey Hoyos PhD, Phone: [phone] No Panel InformationOrdered By: Lj Stanton on 08-15-2023 Endomysial IgA Antibody Negative Negative [facility] OVA AND PARASITEon 3 OVA AND PARASITE Reason for Exam Alternating constipation and diarrhea Stool Reason for Exam: Alternating constipation and diarrhea : Stool Final report These results were obtained using wet preparation(s) and trichrome stained smear. This test does not include testing for Cryptosporidium parvum, Cyclospora, or Microsporidia. Reason for Exam Alternating constipation and diarrhea Stool Reason for Exam: Alternating constipation and diarrhea : Stool No ova, cysts, or parasites seen. One negative specimen does not rule out the possibility of a parasitic infection. Performed at: [facility] [address] [id number] Mold Washer: Joey Hoyos PhD, Phone: [phone] PERFORMED BY: [facility] [address] [address] PATHOLOGIST PATTERN CHANGER AND REPAIRER ALBA SCHULTE M.D. Normal [facility] Comment on above: Performed By: #### C USTOOL, CRP, ESR, TSH3 ####[facility] [id number] [facility]#### OPEXAM, CELIAC, HIV SCREEN, CALPROTECT, ELASTASE STOOL ####[facility] , Pancreatic Elastase, Stoolon 08-15-2023 Pancreatic Elastase, Stool 449 Normal >200 [facility] Comment on above: Order Comment: Reaso n for Exam Alternating constipation and diarrhea Result Comment: Resu lt Units: ug Elast./g Severe Pancreatic Insufficiency: <100 Moderate Pancreatic Insufficiency: 100 - 200 Normal: >200 Performed at: [address] [id number] Mold Washer: Viet Taylor MD, Phone: [phone] PERFORMED BY: [facility] [address] [place] [address] PATHOLOGIST PATTERN CHANGER AND REPAIRER ALBA SCHULTE M.D. Performed By: #### C USTOOL, CRP, ESR, TSH3 ####[address] [id number] [facility]#### OPEXAM, CELIAC, HIV SCREEN, CALPROTECT, ELASTASE STOOL ####[facility] , Serum gliadin peptide IgA an tibody assay (units/volume)Ordered By: Lj Stanton on 08-15-2023 Gliadin peptide IgA Qn (S) 9 units 0-[address] [facility] Comment on above: Negative 0 - 19 Weak Positive 20 - 30 Moderate to Strong Positive >30 Serum gliadin peptide IgG an tibody assay (units/volume)Ordered By: Lj Stanton on 08-15-2023 Gliadin peptide IgG Qn (S) 4 units 0-[address] [facility] Comment on above: Negative 0 - 19 Weak Positive 20 - 30 Moderate to Strong Positive >30 Serum tissue transglutaminas e (tTG) IgA antibody assay (units/volume)Ordered By: Lj Stanton on 08-15-2023 tTG IgA Qn (S) <2 U/mL 0-3 [facility] Comment on above: Negative 0 - 3 Weak Positive 4 - 10 Positive >10 Tissue Transglutaminase (tTG) has been identified as the endomysial antigen. Studies have demonstr- ated that endomysial IgA antibodies have over 99% specificity for gluten sensitive enteropathy. Serum tissue transglutaminas e (tTG) IgG antibody assay (units/volume)Ordered By: Lj Stanton on 08-15-2023 tTG IgG Qn (S) 4 U/mL 0-[address] [facility] Comment on above: Negative 0 - 5 Weak Positive 6 - 9 Positive >9 Stool Cultureon 08-15-2023 Stool culture Reason for Exam Alternating constipation and diarrhea Stool Reason for Exam: Alternating constipation and diarrhea : Stool Negative for Shiga Toxin 1 Negative for Shiga Toxin 2 Pred. Gram Pos Org Predominantly Gram Positive Organisms A negative Shiga Toxin result may occur if the antigen level in the specimen is below the detection limit of the assay. Stool culture results No Salmonella, Shigella, Campy or E. coli 0157:H7 Isolated PERFORMED BY: [facility] [address] [place] [address] PATHOLOGIST PATTERN CHANGER AND REPAIRER ALBA SCHULTE M.D. Normal [facility] Comment on above: Performed By: #### C USTOOL, CRP, ESR, TSH3 ####[facility] [id number]#### OPEXAM, CELIAC, HIV SCREEN, CALPROTECT, ELASTASE STOOL ####[facility] , Stool bacteria identificatio n by cultureOrdered By: Lj Stanton on 08-15-2023 Bacteria identified Cx Nom (Stl) [facility] Thyroid Stimulating Hormoneo n 08-15-2023 TSH Qn 0.57 m[IU]/L Normal 0.45-5.33 [facility] Comment on above: Order Comment: Reaso n for Exam Alternating constipation and diarrhea Result Comment: PERF ORMED BY: [facility] [address] [place] [address] PATHOLOGIST PATTERN CHANGER AND REPAIRER ALBA SCHULTE M.D. Performed By: #### C USTOOL, CRP, ESR, TSH3 ####[facility] [address]#### OPEXAM, CELIAC, HIV SCREEN, CALPROTECT, ELASTASE STOOL ####[facility] , Thyrotropin [Units/volume] i n Serum or PlasmaOrdered By: Lj Stanton on 08-15-2023 TSH Qn 0.57 m[IU]/L 0.45-5.[address] 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 COMPARISON: November 15, 2021 through November 24, 2022 Real-time ultrasound evaluation of the upper outer breast was performed and a reniform nodule with echogenic hilus is again seen at 1o'clock, 6 cm from the nipple. It measures 7 x 4 x 6 mm and is believed to be a lymph node. At the superior medial breast at 11:00, there is redemonstration of a hypoechoic lobulated nodular asymmetry which currently measures 14 x 6 x 12 mm. A biopsy marking clip is present within the lesion. The measurements are slightly smaller than the previous studies. 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 Given the lack of interval growth, phyllodes is thought unlikely. No new ultrasound findings are identified in the area scanned. US/US breast LT limited IMPRESSION: LOBULATED LEFT BREAST NODULE AT THE SITE OF PREVIOUS BIOPSY, MINIMALLY SMALLER. THE LACK OF INTERVAL GROWTH WOULD SUGGEST FIBROADENOMA OVER PHYLLODES. CLINICAL FOLLOW-UP IS RECOMMENDED WITH REPEAT ULTRASOUND, NEEDED Impression dictated by: Cassandra Rubio M.D.07/17/2023 2:37 PM Dictation Location: [facility] Tech: Fe Bourne Transcribed By: SABA 07/17/23 143 Dictated By: Cassandra Rubio MD 07/17/23 1408 Signed By: 07/17/23 143 Normal [facility] C Urineon 07-03-2023 Bacteria identified Cx Nom (U) Microbiology PROCEDURE: Urine Culture [R1] SOURCE: U CleanCatch BODY SITE: COLLECTED DATE/TIME: 07/01/2023 18:14 EDT RECEIVED DATE/TIME: 07/01/2023 22:20 EDT START DATE/TIME: 07/01/2023 22:20 EDT FREE TEXT SOURCE: Kemi Castillo, Mirna Mcmullen M.D., Mirna Montgomery FINAL REPORTS Final Report [] Verified Date/Time: 07/03/2023 11:43 EDT 1,000 cfu/ml Mixed skin contaminants Performing Locations R1: This test was performed at: [facility], [address] [place] [address], [facility]- , [place], [facility] Comment on above: Performed By: #### 2 [id number] #### [facility] [address] [place] [address] Discharge Instructionson Discharge Instructions [id number] #1.00CD:127 Normal [facility] Outside Recordson 07-02-2023 Outside Records [id number]# 1.00CD:127 Normal [facility] US Pelvis Non-OB Completeon 07-02-2023 US Pelvis Non-OB Complete Exam Date/Time: 07/01/2023 19:57 EDT Reason for Exam: Pelvic pain Report IMPRESSION: NEGATIVE ULTRASOUND OF THE PELVIS. CLINICAL HISTORY: Pelvic pain. COMPARISON: None available COMMENT: Transabdominal images were obtained. The uterus measurements and an estimated volume are: Uterus Length: 6.4 cm Uterus Width: 3.6 cm Uterus Height: 3.9 cm Uterus Volume: 47.9 cm3 Endometrium Thickness: 0.6 cm Normal sonographic appearance of the uterus. The right ovary measurements and an estimated volume are: Right Ovary Length: 2.8 cm Right Ovary Width: 1.8 cm Right Ovary Height: 2.2 cm Right Ovary Volume: 5.9 cm3 The left ovary measurements and an estimated volume are: Left Ovary Length: 2.4 cm Left Ovary Width: 2.4 cm Left Ovary Height: 2.2 cm Left Ovary Volume: 6.3 cm3 Normal sonographic appearance of the ovaries. Blood flow is identified to both ovaries. No adnexal mass. No free fluid within the pelvis. Ordering Provider: Mirna Mcmullen FINAL REPORT Dictated: 07/02/2023 8:23 am Gualberto Concepcion DO Signed (Electronic Signature): 07/02/2023 8:23 am Signed by: Gualberto Concepcion DO Transcribed by: NAN Technologist: TEDDY Technical Comments Transabdominal Ultrasound Performed Normal [facility] Auto Diffon 07-01-2023 Basophils/100 WBC (Bld) 0.2 % Normal 0.0-2.0 [facility] Comment on above: Order Comment: Order Added by Sal Expert. Performed By: #### 2 541974, 8750064, 9942742, [id number] #### [facility] [address] [place] [address] Basophils/Leukocytes Auto (Bld) [Pure # fraction] 0.0 E9/L Normal 0.0-0.2 [facility] Comment on above: Order Comment: Order Added by Sal Expert. Performed By: #### 2 569524, 2148001, 9923044, [id number] #### [facility] [address] [place] [address] Eosinophils/100 WBC (Bld) 0.0 % Normal 0.0-8.0 [facility] Comment on above: Order Comment: Order Added by Discern Expert. Performed By: #### 2 081573, 0289981, 9018366, [id number] #### [facility] [address] [place] [address] Eosinophils/Leukocyte s Auto (Bld) [Pure # fraction] 0.0 E9/L Normal 0.0-0.5 [facility] Comment on above: Order Comment: Order Added by Discern Expert. Performed By: #### 2 142163, 9383944, 7070880, [id number] #### [facility] [address] [place] [address] Lymphocytes/100 WBC (Bld) 16.2 % Normal 14.0-50.0 [facility] Comment on above: Order Comment: Order Added by Sal Expert. Performed By: #### 2 720541, 9344765, 0765348, [id number] #### [facility] [address] [place] [address] Lymphocytes/Leukocyte s Auto (Bld) [Pure # fraction] 1.5 E9/L Normal 1.0-4.0 [facility] Comment on above: Order Comment: Order Added by Sal Expert. Performed By: #### 2 659499, 5301243, 8920097, [id number] #### [facility] [address] [place] [address] Monocytes/100 WBC (Bld) 6.9 % Normal 4.0-14.0 [facility] Comment on above: Order Comment: Order Added by Discern Expert. Performed By: #### 2 209812, 1815147, 1470603, [id number] #### [facility] [address] [place] [address] Monocytes/Leukocytes Auto (Bld) [Pure # fraction] 0.7 E9/L Normal 0.2-1.0 [facility] Comment on above: Order Comment: Order Added by Sal Expert. Performed By: #### 2 883971, 6939984, 3802443, [id number] #### [facility] [address] [place] [address] Neutrophils/100 WBC (Bld) 76.7 % High 36.0-75.0 [facility] Comment on above: Order Comment: Order Added by Discern Expert. Performed By: #### 2 116175, 2773912, 2002002, 99157129 #### [facility] [address] [place] [address] Neutrophils/Leukocyte s Auto (Bld) [Pure # fraction] 7.2 E9/L Normal 2.0-7.5 [facility] Comment on above: Order Comment: Order Added by Discern Expert. Performed By: #### 2 065604, 4727960, 1630815, [id number] #### [facility] [address] [place] [address] BMPon 07-01-2023 Creatinine [Mass/Vol] 0.7 mg/dL Normal 0.5-1.3 [facility] Comment on above: Performed By: #### 2 737715, 8783698, 4752417, [id number] #### [facility] [address] [place] [address] Urea nitrogen [Mass/Vol] 9 mg/dL Normal 5-21 [facility] Comment on above: Performed By: #### 2 534915, 0845756, 0682591, [id number] #### [facility] [address] [place] [address] Urea nitrogen/Creatinine [Mass ratio] 13 No Units Normal 10-20 [facility] Comment on above: Performed By: #### 2 530532, 1061148, 2737603, 76050342 #### [facility] [address] [place] [address] Anion gap [Moles/Vol] 5 mmol/L Low 6-16 [facility] Comment on above: Performed By: #### 2 557117, 6740876, 3538875, [id number] #### [facility] [address] [place] [address] Calcium [Mass/Vol] 8.6 mg/dL Low 8.9-11.1 [facility] Comment on above: Performed By: #### 2 891593, 8559734, 9892802, 45839099 #### [facility] [address] [place] [address] Chloride [Moles/Vol] 112 mmol/L High 101-111 [facility] Comment on above: Performed By: #### 2 356136, 0040343, 2083713, 67685644 #### [facility] [address] [place] [address] CO2 [Moles/Vol] 27 mmol/L Normal 21-31 [facility] Comment on above: Performed By: #### 2 665165, 9297940, 7797094, [id number] #### [facility] [address] [place] [address] Glucose [Mass/Vol] 120 mg/dL Normal 55-199 [facility] Comment on above: Result Comment: If t his glucose result represents a fasting glucose, interpretation should refer to the following reference range: 55-99 mg/dL Performed By: #### 2 477120, 8252971, 8755047, 41257038 #### [facility] [address] [place] [address] Potassium [Moles/Vol] 3.8 mmol/L Normal 3.5-5.3 [facility] Comment on above: Performed By: #### 2 302997, 9343234, 1099984, 02093872 #### [facility] [address] [place] [address] Sodium [Moles/Vol] 140 mmol/L Normal 135-145 [facility] Comment on above: Performed By: #### 2 971221, 0349509, 8239820, 66323004 #### [facility] [address] [place] [address] CBC w/ Auto Diffon 3 Erythrocyte distribution width (RBC) [Ratio] 14.8 % High 10.9-14.2 [facility] Comment on above: Performed By: #### 2 949772, 7574731, 4189208, 33122126 #### [facility] [address] [place] [address] Hematocrit (Bld) [Volume fraction] 38.0 % Normal 34.0-46.0 [facility] Comment on above: Performed By: #### 2 355415, 9063183, 5300579, 14131382 #### [facility] [address] [place] [address] Hemoglobin (Bld) [Mass/Vol] 12.8 g/dL Normal 12.0-16.0 [facility] Comment on above: Performed By: #### 2 821247, 3035368, 0974192, 04761440 #### [facility] [address] [place], [place] [address] MCH (RBC) [Entitic mass] 27.5 pg Normal 27.0-34.0 [facility] Comment on above: Performed By: #### 2 620446, 0420041, 9050437, 36091285 #### [facility] [address] [place] [address] MCHC (RBC) [Mass/Vol] 33.8 g/dL Normal 31.4-36.0 [facility] Comment on above: Performed By: #### 2 712999, 0187911, 8345238, 16137575 #### [facility] [address] [place] [address] MCV (RBC) [Entitic vol] 81.3 fL Normal 80.0-100.0 [facility] Comment on above: Performed By: #### 2 563905, 7590058, 7915748, 30220137 #### [facility] [address] [place] [address] Platelet mean volume (Bld) [Entitic vol] 6.8 fL Normal 6.4-10.8 [facility] Comment on above: Performed By: #### 2 180354, 1306534, 3534984, 22883428 #### [facility] [address] [place], [place] [address] Platelets (Bld) [#/Vol] 240.0 E9/L Normal 150.0-500.0 [facility] Comment on above: Performed By: #### 2 169493, 1867028, 1626072, 58989700 #### [facility] [address] [place] [address] RBC (Bld) [#/Vol] 4.7 E12/L Normal 4.3-5.9 [facility] Comment on above: Performed By: #### 2 611305, 4795999, 6347828, 80510760 #### [facility] [address] [place] [address] WBC corrected for nucl RBC Auto (Bld) [#/Vol] 9.4 E9/L Normal 4.0-11.0 [facility] Comment on above: Performed By: #### 2 601510, 2365015, 1994026, 14196471 #### [facility] [address] [place] [address] CHEMISTRYOrdered By: SYSTEM SYSTEM on 07-01-2023 Anion gap [Moles/Vol] 5 mmol/L Low 6 - 16 mEq/L F C Remisol Calcium [Mass/Vol] 8.6 mg/dL Low 8.9 - 11. 1 mg/dL FT Remisol Chloride [Moles/Vol] 112 mmol/L High 101 - 1 11 mmol/L FT Remisol CO2 [Moles/Vol] 27 mmol/L Normal 21 - 31 mmol/L FT Remisol Creatinine [Mass/Vol] 0.7 mg/dL Normal 0.5 - 1.3 mg/dL [facility] Remisol GFR/1.73 sq M.predicted among non-blacks MDRD (S/P/Bld) [Vol rate/Area] 123 mL/min/1.73 m2 Normal >=59mL/min/1. 73 m2 [facility] Chem S Glucose [Mass/Vol] 120 mg/dL Normal 55 - 199 mg/dL FT Remisol Potassium [Moles/Vol] 3.8 mmol/L Normal 3.5 - 5.3 mmol/L FT Remisol Sodium [Moles/Vol] 140 mmol/L Normal 135 - 145 mmol/L [facility] Remisol Urea nitrogen [Mass/Vol] 9 mg/dL Normal 5 - 21 mg/dL [facility] Remisol Urea nitrogen/Creatinine [Mass ratio] 13 mg/mg Normal 10 - 20 [facility] Remisol Consent for Treatmenton 06-09 Consent for Treatment [id number] .[id number]:127 Normal [facility] ED Clinical Summaryon 2022 ED Clinical Summary [place] [id number] ED Clinical Summary Person Information [facility]: [facility] Age[facility] 27 Years : 1995 Sex: Female Language: Mauritian PCP: SHWETA GONZALEZ Marital Status: Single Visit Id: Visit Reason: Nausea; Abdominal pain; PAIN LEFT LOWER ABDOMIN Speciality: Acuity: 3 Enc Type: Emergency Med Service: Emergency Arrival: 07/01/2023 17:48:54 Discharge: 07/01/2023 21:05:04 LOS: 000 03:17 Checkin: 07/01/2023 17:48:54 Checkout: 07/01/2023 21:05:04 Dispo Type: Home (Routine DC) EVENTS: Event Name Event Status Request Date/Time Start Date/Time Complete Date/Time Arrive Complete 07/01/2023 17:48:54 07/01/2023 17:48:54 07/01/2023 17:48:54 Document Home Meds Request 07/01/2023 17:48:54 Triage Complete 07/01/2023 17:48:54 07/01/2023 17:58:45 07/01/2023 17:58:45 Bed Assign Complete 07/01/2023 17:52:02 07/01/2023 17:52:02 07/01/2023 17:52:02 Dr Exam Complete 07/01/2023 17:52:02 07/01/2023 17:57:08 07/01/2023 17:57:08 RN Exam Complete 07/01/2023 17:52:02 07/01/2023 18:03:43 07/01/2023 18:03:43 Registration Complete 07/01/2023 17:55:25 07/01/2023 17:55:25 07/01/2023 17:55:25 Reg Complete Request 07/01/2023 17:55:25 Reg Bed Request Complete 07/01/2023 17:55:25 07/01/2023 17:55:25 07/01/2023 17:55:25 Registration Request 07/01/2023 17:57:08 Isolation Screening Request 07/01/2023 17:58:46 US Complete 07/01/2023 18:13:00 07/01/2023 19:14:21 07/01/2023 19:57:16 Pending Labs Complete 07/01/2023 18:13:00 07/01/2023 19:13:27 Lab Complete 07/01/2023 18:13:00 07/01/2023 19:13:27 Urine Collect Complete 07/01/2023 18:13:00 07/01/2023 18:43:55 Pending Labs Complete 07/01/2023 18:13:18 07/01/2023 18:32:12 Lab Complete 07/01/2023 18:13:18 07/01/2023 18:32:12 Urine Collect Complete 07/01/2023 18:13:18 07/01/2023 18:32:12 Pending Labs Complete 07/01/2023 18:18:12 07/01/2023 19:14:53 Lab Complete 07/01/2023 18:18:12 07/01/2023 19:14:53 Meds Admin Complete 07/01/2023 18:18:42 07/01/2023 18:41:37 Meds Admin Complete 07/01/2023 18:29:35 07/01/2023 18:41:37 Pending Labs Collected 07/01/2023 18:30:27 07/01/2023 18:30:27 Lab Collected 07/01/2023 18:30:27 07/01/2023 18:30:27 Pending Labs Complete 07/01/2023 18:55:27 07/01/2023 18:55:27 07/01/2023 19:13:28 Lab Complete 07/01/2023 18:55:27 07/01/2023 18:55:27 07/01/2023 19:13:28 Pending Labs Complete 07/01/2023 19:00:08 07/01/2023 19:00:08 07/01/2023 19:00:15 Lab Complete 07/01/2023 19:00:08 07/01/2023 19:00:08 07/01/2023 19:00:15 Patient Care Complete 07/01/2023 19:05:38 07/01/2023 19:06:45 Pending Labs Complete 07/01/2023 19:05:38 07/01/2023 19:32:20 Lab Complete 07/01/2023 19:05:38 07/01/2023 19:32:20 Urine Collect Complete 07/01/2023 19:05:38 07/01/2023 19:32:20 Meds Admin Complete 07/01/2023 20:44:56 07/01/2023 21:02:34 Discharge Complete 07/01/2023 20:46:33 07/01/2023 21:05:09 07/01/2023 21:05:09 Meds Admin Complete 07/01/2023 20:47:15 07/01/2023 21:02:35 Transfer Complete 07/01/2023 21:05:09 07/01/2023 21:05:09 07/01/2023 21:05:09 ADDRESS: [address] [place] [phone] PHYS DOC NOTES: Addendum by Kendrick Zacarias MD on July 01, 2023 20:41:03 EDT MEDICAL INFORMATION: Prescriptions Given: New Medications [facility], [address] [place] [id number], [phone] ondansetron (Zofran ODT 4 mg Tab-Dis) 1 Tablets By Mouth every 8 hours. Refills: 0. Printed Prescriptions acetaminophen-oxycodo ne (Percocet 5 mg-325 mg oral tablet) 1 Tablets By Mouth every 6 hours. Refills: 0. PATIENT EDUCATION INFORMATION: Instructions: Pelvic Pain, Female, [id number] Follow up: With: Address: When: Ghanshyam NIETO [facility], [address] [facility] [facility] [place] [address] Business (1) In 3 days 07/04/2023 Comments: Call the office first thing Sunday morning With: Address: When: SHWETA GONZALEZ In 3 days DIAGNOSIS: 1:Pelvic pain Normal [facility] ED Note-Nursingon 07-01-2023 ED Note-Nursing at this time pt states she wishes to wait in the waiting room for her ride. pt states she did not drive. this nurse states pt is unable to drive d/t medication given per dec. pt verbalized understanding. Normal [facility] ED Note-Physicianon 07-01-20 ED Note-Physician Basic Information Time Seen: Mirna Mcmullen M.D. 07/01/2023 17:57 Chief Complaint Pt reports abd pain for one week. Pt went to [facility] 2 days ago, given 2 ABX for colitis, CT Done there, went back next day and told constipated. Pain worse. Nauseous, no vomiting. US of ovary done-neg.. Referred to GI. hx of tubal. History of Present Illness The patient is a 27-year-old female who presented to the emergency room with left pelvic pain. The patient states she has been having this pain for past 1 week. The patient states the pain has gotten progressively worse. She was seen 3 days ago at [facility] and CAT scan done. She was diagnosed with colitis and on Cipro and Flagyl given. The patient states she is getting worse. States she went back to [facility], she thinks yesterday and they did a CT of the brain and repeated CT of the abdomen and told that she is constipated. The patient states they did a CT of the brain because she states she has been seeing double. The patient denies any vaginal bleeding. She denies any vaginal discharge. She states she had bilateral tubal ligation. She states the tubes are completely removed. The patient denies getting an ultrasound of the pelvis at [facility]. The patient states she had temperature of 104 earlier. She reports some generalized body ache. The patient denies any diarrhea. Reports nausea but no vomiting. She denies any other associated symptoms. Review of Systems Additional ROS info: Except as noted in the above Review of Systems and in the History of Present Illness all other systems have been reviewed and are negative or noncontributory. Physical Exam Vitals & Measurements HR: 100(Peripheral) RR: 16 BP: 120/86 SpO2: 99% HT: 160.02 cm WT: 70.2 kg BMI: 27.42 General: alert, no acute distress Skin: warm, dry Head: no trauma, normocephalic Neck: Trachea midline Eye: normal conjunctiva, sclera clear, PERRL, EOMI, vision unchanged ENMT: Oral mucosa moist, no pharyngeal erythema or exudate Cardiovascular: regular rate and rhythm Respiratory: Lungs CTA, respirations non labored, breath sounds equal Gastrointestinal: soft, non distended, mild to moderate tenderness left pelvic region, no guarding Extremities: no deformity, no trauma Neurological: Alert and oriented, speech normal, no focal neuro deficits Psychiatric: cooperative, affect appropriate for age, Medical Decision Making MEDICAL DECISION MAKING Number and Complexity of Problems Differential Diagnosis: [] [facility] Data External documents reviewed: [] My EKG interpretation: [] My CT interpretation: [] My X-ray interpretation: [] My Ultrasound interpretation: [] Decision rules/scores evaluated: [] Discussed with: [] Treatment and Disposition ED Course: Presented with left pelvic pain. She has been seen at [facility] twice. The urine is negative. The urine shows no infection. The patient was given Toradol and Zofran. The care of the patient was transitioned to Dr. Zacarias upon shift change to follow-up with pelvic ultrasound blood work and final disposition. Shared decision making: [] Code status: [] Assessment/Plan 1. Pelvic pain (R10.2: Pelvic and perineal pain) Orders: ketorolac, 30 mg = 1 mL, Injection, IV Push, Once, Stop date 07/01/23 18:18:00 EDT, STAT, Start date 07/01/23 18:18:00 EDT, 07/01/23 18:18:00 EDT ondansetron, 4 mg = 2 mL, Injection, IV Push, Once, Stop date 07/01/23 18:29:00 EDT, STAT, Start date 07/01/23 18:29:00 EDT, 07/01/23 18:29:00 EDT Basic Metabolic Panel CBC w/ Auto Diff Rapid COVID Antigen ([facility]) U Beta Hcg Qual UA With Cult Reflex Urine Culture US Pelvis Non-OB Complete Medications Administered Given ketorolac 30 mg/mL Inj 1 mL, 30 mg, IV Push Zofran 4 mg/2 mL Injection, 4 mg, IV Push Disposition Plan Discharge Prescription List Prescriptions No active prescription medications Follow-up No qualifying data available Problem List/Past Medical History Ongoing Clostridium difficile diarrhea Smoker Historical No qualifying data Medications Inpatient No active inpatient medications Home No active home medications Allergies Latex (Rash) Motrin (Ulcer) sulfa drugs (Hives) Social History Alcohol - Denies Alcohol Use, 04/28/2022 Substance Abuse - Denies Substance Abuse, 04/28/2022 Tobacco - High Risk, 04/28/2022 Vaping, 04/28/2022 Lab Results UA Spec Desc: Clean Catch (07/01/23 18:14:00) UA Color: Yellow2 (07/01/23 18:14:00) UA Clarity: Clear2 (07/01/23 18:14:00) UA Spec Grav: 1.020 (07/01/23 18:14:00) UA pH: 7.5 (07/01/23 18:14:00) UA Protein: NEGATIVE1 (07/01/23 18:14:00) UA Glucose: NEGATIVE1 (07/01/23 18:14:00) UA Ketones: NEGATIVE1 (07/01/23 18:14:00) UA Bili: NEGATIVE1 (07/01/23 18:14:00) UA Blood: NEGATIVE1 (07/01/23 18:14:00) UA Nitrite: NEGATIVE1 (07/01/23 18:14:00) UA Urobilinogen: 0.2 (07/01/23 18:14:00) UA Leuk Est (more content not included)... Normal [facility] Comment on above: Result Comment: Elec tronically Signed By: Rell DUGAN, Kendrick\.br\Date and Time Signed: 07/01/23 20:43 EDT ED Patient Education Noteon 07-01-2023 ED Patient Education Note Obstetrics and Gynecology Pelvic Pain, Female Pelvic pain is pain in your lower belly (abdomen), below your belly button and between your hips. The pain may: ? Start all of a sudden (be acute). ? Keep coming back (be recurring). ? Last a long time (become chronic). Pelvic pain that lasts longer than 6 months is called chronic pelvic pain. There are many causes of pelvic pain. Sometimes the cause of pelvic pain is not known. Follow these instructions at home: ? Take yguj-bwo-agjueaa and prescription medicines only as told by your doctor. ? Rest as told by your doctor. ? Do not have sex if it hurts. ? Keep a journal of your pelvic pain. Write down: ? When the pain started. ? Where the pain is located. ? What seems to make the pain better or worse, such as food or your monthly period (menstrual cycle). ? Any symptoms you have along with the pain. ? Keep all follow-up visits. Contact a doctor if: ? Medicine does not help your pain, or your pain comes back. ? You have new symptoms. ? You have unusual discharge or bleeding from your vagina. ? You have a fever or chills. ? You are having trouble pooping (constipation). ? You have blood in your pee (urine) or poop (stool). ? Your pee smells bad. ? You feel weak or light-headed. Get help right away if: ? You have sudden pain that is very bad. ? You have very bad pain and also have any of these symptoms: ? A fever. ? Feeling like you may vomit (nauseous). ? Vomiting. ? Being very sweaty. ? You faint. These symptoms may be an emergency. Get help right away. Call your local emergency services (911 in the [place] ? Do not wait to see if the symptoms will go away. ? Do not drive yourself to the hospital. Summary ? Pelvic pain is pain in your lower belly (abdomen), below your belly button and between your hips. ? There are many causes of pelvic pain. ? Keep a journal of your pelvic pain. This information is not intended to replace advice given to you by your health care provider. Make sure you discuss any questions you have with your health care provider. Document Revised: 01/31/2022 Document Reviewed: 01/31/2022 Elsevier Patient Education ? 2022 [employer] Normal [facility] ED Patient Summaryon 023 ED Patient Summary [address] [address] Patient Discharge Instructions Person Information Name: BRIAN SULLIVAN Age: 27 Years Arrival Date: 07/01/2023 17:48:54 Discharge Diagnosis: 1:Pelvic pain Primary Care Physician: SHWETA GONZALEZ Provider Information Primary Provider: Mirna Mcmullen M.D. Advanced Radiation Control Worker:None The exam and treatment you received in the Emergency Department were for an urgent problem and are not intended as complete care. It is important that you follow up with a doctor, nurse practitioner, or physician?s vet assistant for ongoing care. If your symptoms become worse or you do not improve as expected and you are unable to reach your usual health care provider, you should return to the Emergency Department. We are available 24 hours a day. BRIAN SULLIVAN has been given the following list of patient education materials, prescriptions and follow-up instructions: Follow-up Instructions: With: Address: When: [facility], [address] [place] [address] [place] [address] [facility] (1) In 3 days 07/04/2023 Comments: Call the office first thing Sunday morning With: Address: When: SHWETA GONZALEZ In 3 days In the event that this physician does not participate in your insurance network, please consult with your insurance company to find a nearby participating provider. Patient Education Materials: Pelvic Pain, Female, Aesl-aw-Xjqi A MESSAGE TO ALL PATIENTS REGARDING OPIOIDS PRESCRIPTION OPIOIDS: WHAT YOU NEED TO KNOW Prescription opioids can be used to help relieve hfhwrzvg-bj-epxish pain and are often prescribed following a surgery or injury, or for certain health conditions. These medications can be an important part of the treatment but also come with serious risks. It is important to work with your healthcare provider to make sure you are getting the safest, most effective care. WHAT ARE THE RISKS AND SIDE EFFECTS OF OPIOID USE? Prescription opioids carry serious risks of addiction and overdose, especially with prolonged use. An opioid overdose, often marked by slowed breathing, can cause sudden . The use of prescription opioids can have a number of side effects as well, even when taken as directed: ? Tolerance?meaning you might need to take more of the medication for the same pain relief ? Physical dependence?meaning you have symptoms of withdrawal when a medication is stopped ? Increased sensitivity to pain ? Constipation ? Nausea, vomiting, and dry mouth ? Sleepiness and dizziness ? Confusion ? Depression ? Low levels of testosterone that can result in lower sex drive, energy, and strength ? Itching and sweating RISKS ARE GREATER WITH: ? History of drug misuse, substance use disorder, or overdose ? Mental health conditions (such as depression or anxiety) ? Sleep apnea ? Older age (65 years and older) ? Avoid alcohol while taking prescription opioids. Also, unless specifically advised by your health care provider, medications to avoid include: ? Benzodiazepines (such as Xanax or Valium) ? Muscle relaxants (such as Soma or Flexeril) ? Hypnotics (such as Ambien or Lunesta) ? Other prescription opioids KNOW YOUR OPTIONS Talk to your health care provider about ways to manage your pain that don?t involve prescription opioids. Some of these options may actually work better and have fewer risks and side effects. Options may include: ? Pain relievers such as acetaminophen, ibuprofen, and naproxen ? Some medication that are also used for depression or seizures ? Physical therapy and exercise ? Cognitive behavioral therapy, a psychological, goal-directed approach, in which patients learn how to modify physical, behavioral, and emotional triggers of pain and stress. IF YOU ARE PRESCRIBED OPIOIDS FOR PAIN: ? Never take opioids in greater amounts or more often than prescribed. ? Follow up with your primary health care provider. o Work together to create a plan on how to manage your pain. o Talk about ways to help manage your pain that don?t involve prescription opioids. o Talk about any and all concerns and side effects. ? Help prevent misuse and abuse o Never sell or share prescription opioids. o Never use another person?s prescription opioids. ? Store prescription opioids in a secure place and out of reach of others (this may include visitors, children, friends, and family). ? Safely dispose of unused prescription opioids: Find your community drug take-back program or your pharmacy mail-back program, or flush them down the toilet, following guidance from the Food and Drug Administration (www.fda.gov/Drugs/Re sourcesForYou). ? Visit www.cdc.gov/drugoverd ose to learn about the risks of opioids abuse and overdose. ? If you believe you may be struggling with addiction, tell your hea (more content not included)... Normal [facility] HEMATOLOGYOrdered By: SYSTEM SYSTEM on 07-01-2023 Basophils/100 WBC (Bld) 0.2 % Normal 0.0 - 2.0 % [facility] HemeAutoSS Basophils/Leukocytes Auto (Bld) [Pure # fraction] 0.0 E9/L Normal 0.0 - 0.2 E9/L [facility]eAutoSS Eosinophils/100 WBC (Bld) 0.0 % Normal 0.0 - 8.0 % [facility] HemeAutoSS Eosinophils/Leukocyte s Auto (Bld) [Pure # fraction] 0.0 E9/L Normal 0.0 - 0.5 E9/L [facility] Lymphocytes/100 WBC (Bld) 16.2 % Normal 14.0 - 50.0 % [facility] HemeAutoSS Lymphocytes/Leukocyte s Auto (Bld) [Pure # fraction] 1.5 E9/L Normal 1.0 - 4.0 E9/L [facility] HemeAutoSS Monocytes/100 WBC (Bld) 6.9 % Normal 4.0 - 14.0 % [facility] HemeAutoSS Monocytes/Leukocytes Auto (Bld) [Pure # fraction] 0.7 E9/L Normal 0.2 - 1.0 E9/L [facility] HemeAutoSS Neutrophils/100 WBC (Bld) 76.7 % High 36.0 - 75.0 % [facility] HemeAutoSS Neutrophils/Leukocyte s Auto (Bld) [Pure # fraction] 7.2 E9/L Normal 2.0 - 7.5 E9/L [facility] HEMATOLOGYOrdered By: Cisco Haro on 07-01-2023 Erythrocyte distribution width (RBC) [Ratio] 14.8 % High 10.9 - 14.2 % [facility]eAuto[facility] Hematocrit (Bld) [Volume fraction] 38.0 % Normal 34.0 - 46.0 % [facility] Hemoglobin (Bld) [Mass/Vol] 12.8 g/dL Normal 12.0 - 16.0 gm/dL [facility] MCH (RBC) [Entitic mass] 27.5 pg Normal 27.0 - 34.0 pg [facility] MCHC (RBC) [Mass/Vol] 33.8 g/dL Normal 31.4 - 36.0 gm/dL [facility]eAuto[facility] MCV (RBC) [Entitic vol] 81.3 fL Normal 80.0 - 100.0 fL [facility] Platelet mean volume (Bld) [Entitic vol] 6.8 fL Normal 6.4 - 10.8 fL [facility]eAuto[facility] Platelets (Bld) [#/Vol] 240.0 E9/L Normal 150.0 - 500.0 E9/L [facility] RBC (Bld) [#/Vol] 4.7 E12/L Normal 4.3 - 5.9 E12/L [facility] WBC corrected for nucl RBC Auto (Bld) [#/Vol] 9.4 E9/L Normal 4.0 - 11.0 E9/L [facility] MICRO OTHER TESTSOrdered By: Lambert Clayton on 07-01-2023 Rapid COV Int NEG Ctl Pass (07/01/23 6:41 PM) Normal [facility] Sero Rapid COV Int POS Ctl Pass (07/01/23 6:41 PM) Normal [facility] Man Sero SARS-CoV+SARS-CoV-2 (COVID-19) Ag IA.rapid Ql (Resp) Not Detected (07/01/23 6:41 PM) Normal Not Detected [facility] Man Sero Rapid COVID Antigen ([facility])on 07-01-2023 Rapid COV Int NEG Ctl Pass Normal [facility] Comment on above: Performed By: #### 2 [id number] #### [facility] [address] [place] [address] Rapid COV Int POS Ctl Pass Normal [facility] Comment on above: Performed By: #### 2 [id number] #### [facility] [address] [place] [address] SARS-CoV+SARS-CoV-2 (COVID-19) Ag IA.rapid Ql (Resp) Not detected Normal Not Detected [facility] Comment on above: Result Comment: The Generi[employer]itor? System for Rapid Detection of SARS-CoV-2 is a chromatographic digital immunoassay intended for the direct and qualitative detection of SARS-CoV-2 nucleocapsid antigens in nasal swabs from individuals who are suspected of COVID-19 by their healthcare provider within the first five days of the onset of symptoms. Negative results should be treated as presumptive, do not rule out SARS-CoV-2 infection and should not be used as the sole basis for treatment or patient management decisions, including infection control decisions. Negative results should be considered in the context of a patient?s recent exposures, history and the presence of clinical signs and symptoms consistent with COVID-19, and confirmed with a molecular assay, if necessary, for patient management. For in vitro diagnostic use. In the [place], only for use under an Emergency Use Authorization. In the [place], this test has not been FDA cleared or approved; this test has been authorized by FDA under an EUA for use by authorized laboratories; use by laboratories certified under the CLIA, 42 U.S.C. ?263a, that meet requirements to perform moderate, high, or waived complexity tests and at the Point of Care (POC), i.e., in patient care settings operating under a CLIA Certificate of Waiver, Certificate of Compliance, or Certificate of Accreditation. This test has been authorized only for the detection of proteins from SARS-CoV-2, not for any other viruses or pathogens; and, in the [place], this test is only authorized for the duration of the declaration that circumstances exist justifying the authorization of emergency use of in vitro diagnostics for detection and/or diagnosis of the virus that causes COVID-19 under Section 564(b)(1) of the Act, 21 U.S.C. ? 360bbb-3(b)(1), unless the authorization is terminated or revoked sooner. Performed By: #### 2 [id number] #### [facility] [address] [place] [address] SEROLOGYOrdered By: Lambert For ster on 07-01-2023 HCG.beta subunit (U) [Moles/Vol] Negative Normal [facility] Man Sero U BetaHcg Qualon 07-01-2023 HCG.beta subunit (U) [Moles/Vol] Negative Normal [facility] Comment on above: Performed By: #### 2 [id number] #### [facility] [address] [place] [address] UA With Cult Reflexon 2022 Bilirubin Ql (U) Negative Normal Negative [facility] Comment on above: Order Comment: Urina ry Catheter Insertion triggered Urinalysis With Culture Reflex order by discern. Performed By: #### 2 [id number] #### [facility] [address] [place] [address] Clarity (U) CLEAR Normal Clear [facility] Comment on above: Order Comment: Urina ry Catheter Insertion triggered Urinalysis With Culture Reflex order by discern. Performed By: #### 2 [id number] #### [facility] [address] [place] [address] Color (U) YELLOW Normal Yellow [facility] Comment on above: Order Comment: Urina ry Catheter Insertion triggered Urinalysis With Culture Reflex order by discern. Performed By: #### 2 [id number] #### [facility] [address] [place] [address] Crystals LM Ql (Urine sed) Present Normal [facility] Comment on above: Order Comment: Urina ry Catheter Insertion triggered Urinalysis With Culture Reflex order by discern. Performed By: #### 2 [id number] #### [facility] [address] [place] [address] Epithelial cells.squamous LM.HPF (Urine sed) [#/Area] 0-2 Normal 0-2 [facility] Comment on above: Order Comment: Urina ry Catheter Insertion triggered Urinalysis With Culture Reflex order by discern. Performed By: #### 2 [id number] #### [facility] [address] [place] [address] Glucose Test strip (U) [Mass/Vol] Negative Normal Negative [facility] Comment on above: Order Comment: Urina ry Catheter Insertion triggered Urinalysis With Culture Reflex order by discern. Performed By: #### 2 [id number] #### [facility] [address] [place] [address] Hemoglobin Ql (U) Negative Normal Negative [facility] Comment on above: Order Comment: Urina ry Catheter Insertion triggered Urinalysis With Culture Reflex order by discern. Performed By: #### 2 [id number] #### [facility] [address] [place] [address] Ketones (U) [Mass/Vol] Negative Normal Negative [facility] Comment on above: Order Comment: Urina ry Catheter Insertion triggered Urinalysis With Culture Reflex order by discern. Performed By: #### 2 [id number] #### [facility] [address] [place] [address] [place].plasma/Lithiu m.RBC (Bld) [Mass ratio] 0-3 Normal 0-3 [facility] Comment on above: Order Comment: Urina ry Catheter Insertion triggered Urinalysis With Culture Reflex order by discern. Performed By: #### 2 [id number] #### [facility] [address] [place] [address] Nitrite Ql (U) Negative Normal Negative [facility] Comment on above: Order Comment: Urina ry Catheter Insertion triggered Urinalysis With Culture Reflex order by discern. Performed By: #### 2 [id number] #### [facility] [address] [place] [address] pH (U) 6.5 [pH] Invalid Interpretation Code 5.0-9.0 [facility] Comment on above: Order Comment: Urina ry Catheter Insertion triggered Urinalysis With Culture Reflex order by discern. Performed By: #### 2 [id number] #### [facility] [address] [place] [address] Protein (U) [Mass/Vol] Negative Normal Negative [facility] Comment on above: Order Comment: Urina ry Catheter Insertion triggered Urinalysis With Culture Reflex order by discern. Performed By: #### 2 [id number] #### [facility] [address] [place] [address] Specific gravity (U) [Rel density] 1.020 Invalid Interpretation Code 1.005-1.030 [facility] Comment on above: Order Comment: Urina ry Catheter Insertion triggered Urinalysis With Culture Reflex order by discern. Performed By: #### 2 [id number] #### [facility] [address] [place] [address] Type of Urine collection method Clean Catch Normal [facility] Comment on above: Order Comment: Urina ry Catheter Insertion triggered Urinalysis With Culture Reflex order by discern. Performed By: #### 2 [id number] #### [facility] [address] [place] [address] Urobilinogen Qn (U) 0.2 {Mary Ann'U}/dL Normal 0.0-1.0 [facility] Comment on above: Order Comment: Urina ry Catheter Insertion triggered Urinalysis With Culture Reflex order by discern. Performed By: #### 2 [id number] #### [facility] [address] [place] [address] WBC Auto Ql (U) Negative Normal Negative [facility] Comment on above: Order Comment: Urina ry Catheter Insertion triggered Urinalysis With Culture Reflex order by discern. Performed By: #### 2 [id number] #### [facility] [address] [place] [address] WBC LM.HPF (Urine sed) [#/Area] 0-5 Normal 0-5 [facility] Comment on above: Order Comment: Urina ry Catheter Insertion triggered Urinalysis With Culture Reflex order by discern. Performed By: #### 2 [id number] #### [facility] [address] [place] [address] Bacteria LM Ql (Urine sed) TRACE Normal Trace [facility] Comment on above: Performed By: #### 2 [id number] #### [facility] [address] [place] [address] Bilirubin Ql (U) Negative Normal Negative [facility] Comment on above: Performed By: #### 2 [id number] #### [facility] [address] [place] [address] Clarity (U) CLEAR Normal Clear [facility] Comment on above: Performed By: #### 2 [id number] #### [facility] [address] [place] [address] Color (U) YELLOW Normal Yellow [facility] Comment on above: Performed By: #### 2 [id number] #### [facility] [address] [place] [address] Crystals LM Ql (Urine sed) Present Normal [facility] Comment on above: Performed By: #### 2 [id number] #### [facility] [address] [place] [address] Epithelial cells.squamous LM.HPF (Urine sed) [#/Area] 3-4 Normal 0-2 [facility] Comment on above: Performed By: #### 2 [id number] #### [facility] [address] [place] [address] Glucose Test strip (U) [Mass/Vol] Negative Normal Negative [facility] Comment on above: Performed By: #### 2 [id number] #### [facility] [address] [place] [address] Hemoglobin Ql (U) Negative Normal Negative [facility] Comment on above: Performed By: #### 2 [id number] #### [facility] [address] [place] [address] Ketones (U) [Mass/Vol] Negative Normal Negative [facility] Comment on above: Performed By: #### 2 [id number] #### [facility] [address] [place] [address] [place].plasma/Lithiu m.RBC (Bld) [Mass ratio] 0-3 Normal 0-3 [facility] Comment on above: Performed By: #### 2 [id number] #### [facility] [address] [place] [address] Mucus Ql (Urine sed) 2+ Normal [facility] Comment on above: Performed By: #### 2 [id number] #### [facility] [address] [place] [address] Nitrite Ql (U) Negative Normal Negative [facility] Comment on above: Performed By: #### 2 [id number] #### [facility] [address] [place] [address] pH (U) 7.5 [pH] Invalid Interpretation Code 5.0-9.0 [facility] Comment on above: Performed By: #### 2 [id number] #### [facility] [address] [place] [address] Protein (U) [Mass/Vol] Negative Normal Negative [facility] Comment on above: Performed By: #### 2 [id number] #### [facility] [address] [place] [address] Specific gravity (U) [Rel density] 1.020 Invalid Interpretation Code 1.005-1.030 [facility] Comment on above: Performed By: #### 2 [id number] #### [facility] [address] [place] [address] Type of Urine collection method Clean Catch Normal [facility] Comment on above: Performed By: #### 2 [id number] #### [facility] [address] [place] [address] Urobilinogen Qn (U) 0.2 {Mary Ann'U}/dL Normal 0.0-1.0 [facility] Comment on above: Performed By: #### 2 [id number] #### [facility] [address] [place] [address] WBC Auto Ql (U) 1+ Abnormal Negative [facility] Comment on above: Performed By: #### 2 [id number] #### [facility] [address] [place] [address] WBC LM.HPF (Urine sed) [#/Area] 0-5 Normal 0-5 [facility] Comment on above: Performed By: #### 2 [id number] #### [facility] [address] [place] [address] URINALYSISOrdered By: Lambert fernando on 07-01-2023 Bilirubin Ql (U) Negative (07/01/23 7:07 PM) Normal Negative [facility] UA Auto SS Clarity (U) Clear (07/01/23 7:07 PM) Normal Clear [facility] UA Auto SS Color (U) Yellow (07/01/23 7:07 PM) Normal Yellow [facility] UA Auto SS Crystals LM Ql (Urine sed) Present (07/01/23 7:07 PM) Normal [facility] UA Auto SS Epithelial cells.squamous LM.HPF (Urine sed) [#/Area] 0-2 /HPF Normal 0-2/HPF [facility] UA Aut o SS Glucose Test strip (U) [Mass/Vol] Negative (07/01/23 7:07 PM) Normal Negative [facility] UA Auto SS Hemoglobin Ql (U) Negative (07/01/23 7:07 PM) Normal Negative [facility] UA Auto SS Ketones (U) [Mass/Vol] Negative (07/01/23 7:07 PM) Normal Negative [facility] UA Auto SS [place].plasma/Lithiu m.RBC (Bld) [Mass ratio] 0-3 /HPF Normal 0-3/HPF [facility] UA Auto SS Nitrite Ql (U) Negative (07/01/23 7:07 PM) Normal Negative [facility] UA Auto SS pH (U) 6.5 *NA* (07/01/23 7:07 PM) Invalid Interpretation Code 5.0 - 9.0 [facility] UA Auto SS Protein (U) [Mass/Vol] Negative (07/01/23 7:07 PM) Normal Negative [facility] UA Auto SS Specific gravity (U) [Rel density] 1.020 *NA* (07/01/23 7:07 PM) Invalid Interpretation Code 1.005 - 1.030 [facility] UA Auto SS UA Spec Desc Clean Catch (07/01/23 7:07 PM) Normal [facility] UA Auto SS Urobilinogen Qn (U) 0.7449166 {Mary Ann'U}/dL Normal 0.0 - 1.0 EU/dL [facility] UA Auto SS WBC Auto Ql (U) Negative (07/01/23 7:07 PM) Normal Negative [facility] UA Auto SS WBC LM.HPF (Urine sed) [#/Area] 0-5 /HPF Normal 0-5/HPF [facility] UA Auto SS Bacteria LM Ql (Urine sed) Trace /HPF Normal Trace/HPF [facility] UA Auto SS Bilirubin Ql (U) Negative (07/01/23 6:14 PM) Normal Negative [facility] UA Auto SS Clarity (U) Clear (9/24/23 6:14 PM) Normal Clear [facility] UA Auto SS Color (U) Yellow (07/01/23 6:14 PM) Normal Yellow [facility] UA Auto SS Crystals LM Ql (Urine sed) Present (07/01/23 6:14 PM) Normal [facility] UA Auto SS Epithelial cells.squamous LM.HPF (Urine sed) [#/Area] 3-4 /HPF Normal 0-2/HPF [facility] UA Aut o SS Glucose Test strip (U) [Mass/Vol] Negative (07/01/23 6:14 PM) Normal Negative [facility] UA Auto SS Hemoglobin Ql (U) Negative (07/01/23 6:14 PM) Normal Negative [facility] UA Auto SS Ketones (U) [Mass/Vol] Negative (07/01/23 6:14 PM) Normal Negative [facility] UA Auto SS [place].plasma/Lithiu m.RBC (Bld) [Mass ratio] 0-3 /HPF Normal 0-3/HPF [facility] UA Auto SS Mucus Ql (Urine sed) 2+ (07/01/23 6:14 PM) Normal [facility] UA Auto SS Nitrite Ql (U) Negative (07/01/23 6:14 PM) Normal Negative [facility] UA Auto SS pH (U) 7.5 *NA* (07/01/23 6:14 PM) Invalid Interpretation Code 5.0 - 9.0 [facility] UA Auto SS Protein (U) [Mass/Vol] Negative (07/01/23 6:14 PM) Normal Negative [facility] UA Auto SS Specific gravity (U) [Rel density] 1.020 *NA* (07/01/23 6:14 PM) Invalid Interpretation Code 1.005 - 1.030 [facility]A Auto SS UA Spec Desc Clean Catch (07/01/23 6:14 PM) Normal [facility] Auto SS Urobilinogen Qn (U) 0.0825580 {Mary Ann'U}/dL Normal 0.0 - 1.0 EU/dL [facility] UA Auto SS WBC Auto Ql (U) 1+ *ABN* (07/01/23 6:14 PM) Invalid Interpretation Code Negative [facility] UA Auto SS WBC LM.HPF (Urine sed) [#/Area] 0-5 /HPF Normal 0-5/HPF [facility] UA Auto SS eGFRon 07-01-2023 GFR/1.73 sq M.predicted among non-blacks MDRD (S/P/Bld) [Vol rate/Area] 123 mL/min/1.73 m2 Normal >=59 [facility] Comment on above: Order Comment: Order added by Discern Expert. Result Comment: International Representative adama kidney disease could be indicated at eGFR's of less than 60 mL/min/1.73m2. Kidney failure is indicated at less than 15 mL/min/1.73m2. 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 FINDINGS: UTERUS: Normal size and appearance. Uterus size: 8.0 x 4.4 x 4.9 cm ENDOMETRIUM: Small amount of fluid within endometrial cavity, possibly related to patient's stage in menstrual cycle. Endometrial thickness: 11 mm RIGHT OVARY: Normal size and appearance; contains a dominant follicle. Duplex Doppler demonstrates normal waveform and flow; resistive index 0.7. Ovary size: 2.5 x 1.5 x 1.9 cm LEFT OVARY: Normal size and appearance. Duplex Doppler demonstrates normal waveform and flow; resistive index 0.6. Ovary size: 2.7 x 1.6 x 2.3 cm CUL-DE-SAC: Unremarkable. No significant free fluid. BLADDER: Unremarkable. OTHER: No thrombus within the left iliac vein or common femoral vein. IMPRESSION: 1. No abnormal or suspicious findings of the uterus or ovaries; normal blood flow within the ovaries. 2. No thrombus within the left iliac vein and common femoral vein. Electronically authenticated by: ILENE MERCADO Date: 2022-07-18 21:34 Normal [facility] CBC AUTO DIFFon 07-06-2022 BASO # 0.0 103/ul Normal 0.0-0.1 [facility] Comment on above: Performed By: #### E RUR, UMICRO #### [facility] [address] [place] [address] Dr. Hans Muniz Basophils/100 WBC (Bld) 0.2 % Normal 0.2-2.0 [facility] Comment on above: Performed By: #### SHAWN RODRÍGUEZRO #### [facility] [address] [place] [address] Dr. Hans Muniz EO # 0.2 103/ul Normal 0.0-0.7 [facility] Comment on above: Performed By: #### SHAWN RODRÍGUEZRO #### [facility] [address] [place] [address] Dr. Hans Muniz Eosinophils/100 WBC (Bld) 2.3 % Normal 0.9-7.0 [facility] Comment on above: Performed By: #### SHAWN RODRÍGUEZRO #### [facility] [address] [place] [address] Dr. Hans Muniz Erythrocyte distribution width (RBC) [Ratio] 13.0 % Normal 11.0-15.0 [facility] Comment on above: Performed By: #### SHAWN RODRÍGUEZRO #### [facility] [address] [place] [address] Dr. Hans Muniz Hematocrit (Bld) [Volume fraction] 45.7 % Normal 36.0-48.0 [facility] Comment on above: Performed By: #### SHAWN RODRÍGUEZRO #### [facility] [address] [place] [address] Dr. Hans Muniz Hemoglobin (Bld) [Mass/Vol] 14.7 g/dL Normal 12.0-16.0 [facility] Comment on above: Performed By: #### SHAWN RODRÍGUEZRO #### [facility] [address] [place] [address] Dr. Hans Muniz IG # 0.03 10e3/ul Normal 0.00-0.03 [facility] Comment on above: Performed By: #### SHAWN RODRÍGUEZRO #### [facility] [address] [place] [address] Dr. Hans Muniz IG % 0.4 % Normal 0.0-0.5 [facility] Comment on above: Performed By: #### YANE RODRÍGUEZ #### [facility] [address] [place] [address] Dr. Hans Muniz LYMPH # 1.9 103/ul Normal 1.2-3.8 [facility] Comment on above: Performed By: #### SHAWN RODRÍGUEZRO #### [facility] [address] [place] [address] Dr. Hans Muniz Lymphocytes/100 WBC (Bld) 23.0 % Normal 20.5-60.0 [facility] Comment on above: Performed By: #### SHAWN RODRÍGUEZRO #### [facility] [address] [place] [address] Dr. Hans Muniz MANUAL DIFF REQ NO Normal [facility] Comment on above: Performed By: #### SHAWN RODRÍGUEZRO #### [facility] [address] [place] [address] Dr. Hans Muniz MCH (RBC) [Entitic mass] 27.1 pg Normal 26.7-34.0 [facility] Comment on above: Performed By: #### SHAWN RODRÍGUEZRO #### [facility] [address] [place] [address] Dr. Hans Muniz MCHC (RBC) [Mass/Vol] 32.2 g/dL Normal 29.9-35.2 [facility] Comment on above: Performed By: #### SHAWN RODRÍGUEZRO #### [facility] [address] [place] [address] Dr. Hans Muniz MCV (RBC) [Entitic vol] 84.3 fL Normal 81.0-99.0 [facility] Comment on above: Performed By: #### SHAWN RODRGÍUEZRO #### [facility] [address] [place] [address] Dr. Hans Muniz MONO # 0.6 103/ul Normal 0.3-0.8 [facility] Comment on above: Performed By: #### YANE RODRÍGUEZ #### [facility] [address] [place] [address] Dr. Hans Muniz Monocytes/100 WBC (Bld) 7.1 % Normal 1.7-12.0 [facility] Comment on above: Performed By: #### Lora SHIRLEY UMICRO #### [facility] [address] [place] [address] Dr. Hans Muniz NEUT # 5.6 103/ul Normal 1.4-6.5 [facility] Comment on above: Performed By: #### Lora SHIRLEY UMICRO #### [facility] [address] [place] [address] Dr. Hans Muniz Neutrophils/100 WBC (Bld) 67.0 % Normal 43.0-75.0 [facility] Comment on above: Performed By: #### Lora SHIRLEY UMICRO #### [facility] [address] [place] [address] Dr. Hans Muniz Platelet mean volume (Bld) [Entitic vol] 8.5 fL Critically low 9.5-13.5 [facility] Comment on above: Performed By: #### Lora SHIRLEY UMICRO #### [facility] [address] [place] [address] Dr. Hans Muniz PLT 307 103/ul Normal 150-450 [facility] Comment on above: Performed By: #### Lora SHIRLEY UMICRO #### [facility] [address] [place] [address] Dr. Hans Muniz RBC 5.42 106/ul Critically high 4.20-5.40 [facility] Comment on above: Performed By: #### Lora SHIRLEY UMICRO #### [facility] [address] [place] [address] Dr. Hans Muniz WBC 8.4 103/ul Normal 4.0-11.0 [facility] Comment on above: Performed By: #### Lora SHIRLEY UMICRO #### [facility] [address] [place] [address] ABD/PELV Vimal Fallon 07-06-[address] ABD/PELV W CON EXAMINATION: CT ABD/PELV W CON HISTORY: Pain in pelvis ; recent bladder infection, urinary retention, chills, headache; ablation and tubal ligation one week ago COMPARISON: CT abdomen pelvis 08/08/2019 TECHNIQUE: Axial, Coronal, and Sagittal images were obtained without and/or with IV contrast as indicated by examination type. Dose reduction techniques were achieved by using automated exposure control and/or adjustment of mA and/or kV according to patient size and/or use of iterative reconstruction technique. FINDINGS: LUNG BASES: No visible pulmonary or pleural disease. LIVER: No enlargement, atrophy, suspicious density, or significant focal lesion. BILIARY: No dilatation or calcification. PANCREAS: No lesion, fluid collection, or abnormal duct dilatation. SPLEEN: No enlargement or focal lesion. ADRENALS: No mass or enlargement. KIDNEYS: No mass, obstruction, or calcification. BOWEL/MESENTERY: No visible mass, obstruction, or bowel wall thickening. AORTA/VASCULAR: No aneurysm or dissection. RETROPERITONEUM: No mass or adenopathy. LYMPH NODES: No adenopathy. URINARY BLADDER: No visible focal wall thickening, lesion, or calculus. PELVIC ORGANS: Fluid-filled endometrial cavity 1.3 cm in thickness. Small amount of free fluid and slightly edematous appearance of the periuterine soft tissues. Nonocclusive thrombus within the left ovarian vein extending from low pelvis to level of the iliac crest. ABDOMINAL WALL: No mass or hernia. BONES: No bony lesion or fracture. OTHER: Negative. IMPRESSION: 1. 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 2. Fluid-filled endometrial cavity 1.3 cm in thickness and slightly edematous appearance of surrounding fat; secondary to recent procedure versus infectious etiology. 3. Small moderate free fluid in pelvic cul-de-sac; recent procedure versus physiologic from ruptured ovarian cyst. 4. Unremarkable urinary bladder. Electronically authenticated by: ILENE MERCADO Date: 2022-07-06 15:46 Normal [facility] Covid-19 PCR (CVDTB)on 06-09 SARS-CoV-2 (COVID-19) RNA BALTAZAR+probe Ql (Unsp spec) Not detected Normal NOT DETECTED [facility] Comment on above: Result Comment: When diagnostic testing is negative, the possibility of a false negative should be considered in the context of a patient's recent exposures and the presence of clinical signs and symptoms consistent with SARS-CoV-2. This test is not yet approved or cleared by the [place] FDA. When there are no FDA-approved or cleared tests available, and other criteria are met, FDA can make tests available under an emergency access mechanism called an Emergency Use Authorization (EUA). The EUA for this test is supported by the Sports Physiotherapist of Health and Human Service's declaration that circumstances exist to justify the emergency use of in vitro diagnostics for the detection and/or diagnosis of the virus that causes COVID-19. This EUA will remain in effect for the duration of the COVID-19 declaration justifying emergency of IVDs, unless it is terminated or revoked by the FDA (after which the test may no longer be used). Performed By: #### E RURYANE #### [facility] [address] [place] [address] Dr. Hans Muniz ER URINE PROFILEon 2 Bilirubin Ql (U) Negative Normal NEGATIVE [facility] Comment on above: Performed By: #### E RUR #### [facility] [address] [place] [address] Dr. Hans Muniz Clarity (U) CLEAR Normal CLEAR [facility] Comment on above: Performed By: #### E RUR #### [facility] [address] [place] [address] Dr. Hans Muniz Color (U) YELLOW Normal YELLOW [facility] Comment on above: Performed By: #### E RUR #### [facility] [address] [place] [address] Dr. Hans Muniz ERURobert A micrscopic examination will be performed if indicated. Normal [facility] Comment on above: Performed By: #### E RUR #### [facility] [address] [place] [address] Dr. Hans Muniz Glucose Ql (U) Negative Normal NEGATIVE [facility] Comment on above: Performed By: #### E RUR #### [facility] [address] [place] [address] Dr. Hans Muniz Hemoglobin Ql (U) Negative Normal NEGATIVE [facility] Comment on above: Performed By: #### E RUR #### [facility] [address] [place] [address] Dr. Hans Muniz Ketones Ql (U) Negative Normal NEGATIVE [facility] Comment on above: Performed By: #### E RUR #### [facility] [address] [place] [address] Dr. Hans Muniz LEUKOCYTES Negative Normal NEGATIVE [facility] Comment on above: Performed By: #### E RUR #### [facility] [address] [place] [address] Dr. Hans Muniz Nitrite Ql (U) Negative Normal NEGATIVE [facility] Comment on above: Performed By: #### E RUR #### [facility] [address] [place] [address] Dr. Hans Muniz pH (U) 7.0 [pH] Normal 5-9 [facility] Comment on above: Performed By: #### E RUR #### [facility] [address] [place] [address] Dr. Hans Muniz SPEC GRAVITY 1.020 Normal 1.005-<=1.025 [facility] Comment on above: Performed By: #### E RUR #### [facility] [address] [place] [address] Dr. Hans Muniz UA PROTEIN Negative Normal NEGATIVE/ TRACE [facility] Comment on above: Performed By: #### E RUR #### [facility] [address] [place] [address] Dr. Hans Muniz UR MICRO IND NOT INDICATED Normal [facility] Comment on above: Performed By: #### E RUR #### [facility] [address] [place] [address] Dr. Hans Muniz Urobilinogen Qn (U) 0.2 {Mary Ann'U}/dL Normal 0.2 - 1. 0 [facility] Comment on above: Performed By: #### E RUR #### [facility] [address] [place] [address] Dr. Hans Muniz LACTATE/LACTIC ACIDon 2021 Lactate [Moles/Vol] 1.7 mmol/L Normal 0.4-1.9 [facility] Comment on above: Performed By: #### SHAWN RODRÍGUEZRO #### [facility] [address] [place] [address] Dr. Hans Muniz PROF CHEM 8 (BAS METB)on Anion gap [Moles/Vol] 12.3 mmol/L Normal [facility] Comment on above: Performed By: #### SHAWN RODRÍGUEZRO #### [facility] [address] [place] [address] Dr. Hans Muniz Calcium [Mass/Vol] 9.2 mg/dL Normal 8.5-10.1 [facility] Comment on above: Performed By: #### SHAWN RODRÍGUEZRO #### [facility] [address] [place] [address] Dr. Hans Muniz Chloride [Moles/Vol] 101 mmol/L Normal 98-107 [facility] Comment on above: Performed By: #### SHAWN RODRÍGUEZRO #### [facility] [address] [place] [address] Dr. Hans Muniz CO2 [Moles/Vol] 26.7 mmol/L Normal 21.0-32.0 [facility] Comment on above: Performed By: #### SHAWN RODRÍGUEZRO #### [facility] [address] [place] [address] Dr. Hans Muniz Creatinine [Mass/Vol] 0.75 mg/dL Normal 0.55-1.02 [facility] Comment on above: Performed By: #### SHAWN RODRÍGUEZRO #### [facility] [address] [place] [address] Dr. Hans Muniz EGFR-AF SERBIAN >60 Normal >=60 [facility] Comment on above: Performed By: #### SHAWN RODRÍGUEZRO #### [facility] [address] [place] [address] Dr. Hans Muniz EGFR-NON AF SERBIAN >60 Normal >=60 [facility] Comment on above: Performed By: #### E RUR, UMICRO #### [facility] [address] [place] [address] Dr. Hans Muniz Glucose [Mass/Vol] 96 mg/dL Normal 74-106 [facility] Comment on above: Performed By: #### Lora SHIRLEY, UMICRO #### [facility] [address] [place] [address] Dr. Hans Muniz Potassium [Moles/Vol] 4.0 mmol/L Normal 3.5-5.1 [facility] Comment on above: Performed By: #### Lora SHIRLEY, UMICRO #### [facility] [address] [place] [address] Dr. Hans Muniz Sodium [Moles/Vol] 136 mmol/L Normal 136-145 [facility] Comment on above: Performed By: #### Lora SHIRLEY, UMICRO #### [facility] [address] [place] [address] Dr. Hans Muniz Urea nitrogen [Mass/Vol] 9.0 mg/dL Normal 7.0-18.0 [facility] Comment on above: Performed By: #### Lora SHIRLEY, UMICRO #### [facility] [address] [place] [address] Dr. Hans Muniz Urea nitrogen/Creatinine [Mass ratio] 12.0 mg/mg Normal [facility] Comment on above: Performed By: #### Lora SHIRLEY, UMICRO #### [facility] [address] [place] [address] Dr. Hans Muniz CULTURE URINEon 07-04-2022 CULTURE URINE Isolate 1 Streptococcus agalactiae >100,000 cfu/mL of ORGANISM 1 Streptococcus agalactiae ANTIBIOTIC M.I.C RX STATUS Benzylpenicillin <=0.06 S F Ampicillin <=0.25 S F Cefotaxime <=0.12 S F Ceftriaxone <=0.12 S F Levofloxacin 0.5 S F Inducible Clindamycin Resistance Neg NEG F Erythromycin >=8 R F Clindamycin >=1 R F Linezolid <=2 S F Vancomycin 0.5 S F Tetracycline >=16 R F Normal [facility] Comment on above: Performed By: #### E YANE SHRILEY #### [facility] [address] [address] [address] Hans Muniz CBC AUTO DIFFon 07-02-2022 BASO # 0.0 103/ul Normal 0.0-0.1 [facility] Comment on above: Performed By: #### C BC #### [facility] [address] [address] [address] Hans Muniz Basophils/100 WBC (Bld) 0.3 % Normal 0.2-2.0 [facility] Comment on above: Performed By: #### C BC #### [facility] [address] [address] [address] Hans Muniz EO # 0.1 103/ul Normal 0.0-0.7 [facility] Comment on above: Performed By: #### C BC #### [facility] [address] [place] [address] Dr. Hans Muniz Eosinophils/100 WBC (Bld) 1.2 % Normal 0.9-7.0 [facility] Comment on above: Performed By: #### C BC #### [facility] [address] [address] [address] Hans Muniz Erythrocyte distribution width (RBC) [Ratio] 13.1 % Normal 11.0-15.0 [facility] Comment on above: Performed By: #### C BC #### [facility] [address] [place] [address] Dr. Hans Muniz Hematocrit (Bld) [Volume fraction] 37.6 % Normal 36.0-48.0 [facility] Comment on above: Performed By: #### C BC #### [facility] [address] [address] [address] Hans Muniz Hemoglobin (Bld) [Mass/Vol] 12.4 g/dL Normal 12.0-16.0 [facility] Comment on above: Performed By: #### C BC #### [facility] [address] [address] [address] Hans Muniz IG # 0.02 10e3/ul Normal 0.00-0.03 [facility] Comment on above: Performed By: #### C BC #### [facility] [address] [place] [address] Dr. Hans Muniz IG % 0.2 % Normal 0.0-0.5 [facility] Comment on above: Performed By: #### C BC #### [facility] [address] [place] [address] Dr. Hans Muniz LYMPH # 3.3 103/ul Normal 1.2-3.8 [facility] Comment on above: Performed By: #### C BC #### [facility] [address] [place] [address] Dr. Hans Muniz Lymphocytes/100 WBC (Bld) 34.8 % Normal 20.5-60.0 [facility] Comment on above: Performed By: #### C BC #### [facility] [address] [place] [address] Dr. Hans Muniz MANUAL DIFF REQ NO Normal [facility] Comment on above: Performed By: #### C BC #### [facility] [address] [place] [address] Dr. Hans Muniz MCH (RBC) [Entitic mass] 27.8 pg Normal 26.7-34.0 [facility] Comment on above: Performed By: #### C BC #### [facility] [address] [place] [address] Dr. Hans Muniz MCHC (RBC) [Mass/Vol] 33.0 g/dL Normal 29.9-35.2 [facility] Comment on above: Performed By: #### C BC #### [facility] [address] [place] [address] Dr. Hans Muniz MCV (RBC) [Entitic vol] 84.3 fL Normal 81.0-99.0 [facility] Comment on above: Performed By: #### C BC #### [facility] [address] [place] [address] Dr. Hans Muniz MONO # 0.6 103/ul Normal 0.3-0.8 [facility] Comment on above: Performed By: #### C BC #### [facility] [address] [place] [address] Dr. Hans Muniz Monocytes/100 WBC (Bld) 6.8 % Normal 1.7-12.0 [facility] Comment on above: Performed By: #### C BC #### [facility] [address] [address] [address] Hans Muniz NEUT # 5.3 103/ul Normal 1.4-6.5 [facility] Comment on above: Performed By: #### C BC #### [facility] [address] [place] [address] Dr. Hans Muniz Neutrophils/100 WBC (Bld) 56.7 % Normal 43.0-75.0 [facility] Comment on above: Performed By: #### C BC #### [facility] [address] [place] [address] Dr. Hans Muniz Platelet mean volume (Bld) [Entitic vol] 8.9 fL Critically low 9.5-13.5 [facility] Comment on above: Performed By: #### C BC #### [facility] [address] [place] [address] Dr. Hans Muniz PLT 286 103/ul Normal 150-450 [facility] Comment on above: Performed By: #### C BC #### [facility] [address] [place] [address] Dr. Hans Muniz RBC 4.46 106/ul Normal 4.20-5.40 [facility] Comment on above: Performed By: #### C BC #### [facility] [address] [place] [address] Dr. Hans Muniz WBC 9.4 103/ul Normal 4.0-11.0 [facility] Comment on above: Performed By: #### C BC #### [facility] [address] [place] [address] Dr. Hans Muniz ER URINE PROFILEon 2 Bilirubin Ql (U) Negative Normal NEGATIVE [facility] Comment on above: Performed By: #### E YANE SHIRLEY #### [facility] [address] [place] [address] Dr. Hans Muniz Clarity (U) CLEAR Normal CLEAR [facility] Comment on above: Performed By: #### Lora SHIRLEY UMICRO #### [facility] [address] [place] [address] Dr. Hans Muniz Color (U) LT. YELLOW Normal YELLOW [facility] Comment on above: Performed By: #### Lora SHIRLEY UMICRO #### [facility] [address] [place] [address] Dr. Hans SCHAEFER A micrscopic examination will be performed if indicated. Normal [facility] Comment on above: Performed By: #### Lora SHIRLEY UMICRO #### [facility] [address] [place] [address] Dr. Hans Muniz Glucose Ql (U) Negative Normal NEGATIVE [facility] Comment on above: Performed By: #### Lora SHIRLEY UMICRO #### [facility] [address] [place] [address] Dr. Hans Muniz Hemoglobin Ql (U) Negative Normal NEGATIVE [facility] Comment on above: Performed By: #### Lora SHIRLEY UMICRO #### [facility] [address] [place] [address] Dr. Hans Muniz Ketones Ql (U) Negative Normal NEGATIVE [facility] Comment on above: Performed By: #### Lora SHIRLEY UMICRO #### [facility] [address] [place] [address] Dr. Hans Muniz LEUKOCYTES SMALL Abnormal NEGATIVE [facility] Comment on above: Performed By: #### Lora SHIRLEY UMICRO #### [facility] [address] [place] [address] Dr. Hans Muniz Nitrite Ql (U) Negative Normal NEGATIVE [facility] Comment on above: Performed By: #### Lora SHIRLEY UMICRO #### [facility] [address] [place] [address] Dr. Hans Muniz pH (U) 6.0 [pH] Normal 5-9 [facility] Comment on above: Performed By: #### SHAWN RODRÍGUEZRO #### [facility] [address] [place] [address] Dr. Hans Muniz SPEC GRAVITY 1.020 Normal 1.005-<=1.025 [facility] Comment on above: Performed By: #### Lora SHIRLEY UMICRO #### [facility] [address] [place] [address] Dr. Hans Muniz UA PROTEIN Negative Normal NEGATIVE/ TRACE [facility] Comment on above: Performed By: #### SHAWN RODRÍGUEZRO #### [facility] [address] [place] [address] Dr. Hans Muniz UR MICRO IND INDICATED Normal [facility] Comment on above: Performed By: #### SHAWN RODRÍGEUZRO #### [facility] [address] [place] [address] Dr. Hans Muniz Urobilinogen Qn (U) 0.2 {Mary Ann'U}/dL Normal 0.2 - 1. 0 [facility] Comment on above: Performed By: #### Lora SHIRLEY UMICRO #### [facility] [address] [place] [address] Dr. Hans Muniz PROF CHEM 8 (BAS METB)on Anion gap [Moles/Vol] 11.7 mmol/L Normal [facility] Comment on above: Performed By: #### G IPANEL #### [facility] [address] [place] [address] Dr. Hans Muniz Calcium [Mass/Vol] 8.2 mg/dL Critically low 8.5-10.1 [facility] Comment on above: Performed By: #### G IPANEL #### [facility] [address] [place] [address] Dr. Hans Muniz Chloride [Moles/Vol] 106 mmol/L Normal 98-107 [facility] Comment on above: Performed By: #### G IPANEL #### [facility] [address] [place] [address] Dr. Hans Muniz CO2 [Moles/Vol] 23.6 mmol/L Normal 21.0-32.0 [facility] Comment on above: Performed By: #### G IPANEL #### [facility] [address] [address] [address] Hans Muniz Creatinine [Mass/Vol] 0.83 mg/dL Normal 0.55-1.02 [facility] Comment on above: Performed By: #### G IPANEL #### [facility] [address] [address] [address] Hans Muniz EGFR-AF SERBIAN >60 Normal >=60 [facility] Comment on above: Performed By: #### G IPANEL #### [facility] [address] [address] [address] Hans Muniz EGFR-NON AF SERBIAN >60 Normal >=60 [facility] Comment on above: Performed By: #### G IPANEL #### [facility] [address] [place] [address] Dr. Hans Muniz Glucose [Mass/Vol] 96 mg/dL Normal 74-106 [facility] Comment on above: Performed By: #### G IPANEL #### [facility] [address] [address] [address] Hnas Muniz Potassium [Moles/Vol] 3.3 mmol/L Critically low 3.5-5.1 [facility] Comment on above: Performed By: #### G IPANEL #### [facility] [address] [address] [address] Hans Muniz Sodium [Moles/Vol] 138 mmol/L Normal 136-145 [facility] Comment on above: Performed By: #### G IPANEL #### [facility] [address] [address] [address] Hans Muniz Urea nitrogen [Mass/Vol] 3.0 mg/dL Critically low 7.0-18.0 [facility] Comment on above: Performed By: #### G IPANEL #### [facility] [address] [address] [address] Hans Muniz Urea nitrogen/Creatinine [Mass ratio] 3.6 mg/mg Normal [facility] Comment on above: Performed By: #### G IPANEL #### [facility] [address] [place] [address] Dr. Hans Muniz URINE MICROSCOPIC ONLYon BACTERIA SMALL Abnormal NONE SEEN [facility] Comment on above: Performed By: #### Lora SHIRLEY UMICRO #### [facility] [address] [place] [address] Dr. Hans Muniz Bacteria identified Cx Nom (U) INDICATED Normal [facility] Comment on above: Performed By: #### Lroa SHIRLEY UMICRO #### [facility] [address] [place] [address] Dr. Hans Muniz CAST NONE SEEN Normal NONE SEEN [facility] Comment on above: Performed By: #### Lora SHIRLEY UMICRO #### [facility] [address] [place] [address] Dr. Hans Muniz Crystals LM Nom (Urine sed) NONE SEEN Normal NONE SEEN [facility] Comment on above: Performed By: #### Lora SHIRLEY UMICRO #### [facility] [address] [place] [address] Dr. Hans Muniz Epithelial cells LM Ql (Urine sed) FEW Abnormal NONE SEEN /RARE [facility] Comment on above: Performed By: #### Lora SHIRLEY UMICRO #### [facility] [address] [place] [address] Dr. Hans Muniz MUCOUS TRACE Abnormal NONE SEEN [facility] Comment on above: Performed By: #### Lora SHIRLEY UMICRO #### [facility] [address] [place] [address] Dr. Hans Muniz RBC 2-5 Abnormal 0-2 [facility] Comment on above: Performed By: #### Lora SHIRLEY UMICRO #### [facility] [address] [place] [address] Dr. Hans Muniz WBC 20-50 Abnormal NONE SEEN [facility] Comment on above: Performed By: #### Lora SHIRLEY UMICRO #### [facility] [address] [place] [address] Dr. Hans Muniz CBC AUTO DIFFon 06-30-2022 BASO # 0.1 103/ul Normal 0.0-0.1 [facility] Comment on above: Performed By: #### YANE RODRÍGUEZ #### [facility] [address] [place] [address] Dr. Hans Muniz Basophils/100 WBC (Bld) 0.7 % Normal 0.2-2.0 [facility] Comment on above: Performed By: #### SHAWN RODRÍGUEZRO #### [facility] [address] [place] [address] Dr. Hans Muniz EO # 0.2 103/ul Normal 0.0-0.7 [facility] Comment on above: Performed By: #### SHAWN RODRÍGUEZRO #### [facility] [address] [place] [address] Dr. Hans Muniz Eosinophils/100 WBC (Bld) 2.8 % Normal 0.9-7.0 [facility] Comment on above: Performed By: #### SHAWN RODRÍGUEZRO #### [facility] [address] [place] [address] Dr. Hans Muniz Erythrocyte distribution width (RBC) [Ratio] 13.0 % Normal 11.0-15.0 [facility] Comment on above: Performed By: #### SHAWN RODRÍGUEZRO #### [facility] [address] [place] [address] Dr. Hans Muniz Hematocrit (Bld) [Volume fraction] 40.8 % Normal 36.0-48.0 [facility] Comment on above: Performed By: #### SHAWN RODRÍGUEZRO #### [facility] [address] [place] [address] Dr. Hans Muniz Hemoglobin (Bld) [Mass/Vol] 13.3 g/dL Normal 12.0-16.0 [facility] Comment on above: Performed By: #### SHAWN RODRÍGUEZRO #### [facility] [address] [place] [address] Dr. Hans Muniz IG # 0.03 10e3/ul Normal 0.00-0.03 [facility] Comment on above: Performed By: #### E RUR, UMICRO #### [facility] [address] [place] [address] Dr. Hans Muniz IG % 0.4 % Normal 0.0-0.5 [facility] Comment on above: Performed By: #### E JENNIFERR, UMICRO #### [facility] [address] [place] [address] Dr. Hans Muniz LYMPH # 3.1 103/ul Normal 1.2-3.8 [facility] Comment on above: Performed By: #### E RUR, UMICRO #### [facility] [address] [place] [address] Dr. Hans Muniz Lymphocytes/100 WBC (Bld) 43.3 % Normal 20.5-60.0 [facility] Comment on above: Performed By: #### E FERN, UMICRO #### [facility] [address] [place] [address] Dr. Hans Muniz MANUAL DIFF REQ NO Normal [facility] Comment on above: Performed By: #### E FERN, UMICRO #### [facility] [address] [place] [address] Dr. Hans Muniz MCH (RBC) [Entitic mass] 27.5 pg Normal 26.7-34.0 [facility] Comment on above: Performed By: #### E FERN, UMICRO #### [facility] [address] [place] [address] Dr. Hans Muniz MCHC (RBC) [Mass/Vol] 32.6 g/dL Normal 29.9-35.2 [facility] Comment on above: Performed By: #### E RUR, UMICRO #### [facility] [address] [place] [address] Dr. Hans Muniz MCV (RBC) [Entitic vol] 84.5 fL Normal 81.0-99.0 [facility] Comment on above: Performed By: #### E RUR, UMICRO #### [facility] [address] [place] [address] Dr. Hans Muniz MONO # 0.5 103/ul Normal 0.3-0.8 [facility] Comment on above: Performed By: #### YANE RODRÍGUEZ #### [facility] [address] [place] [address] Dr. Hans Muniz Monocytes/100 WBC (Bld) 6.9 % Normal 1.7-12.0 [facility] Comment on above: Performed By: #### YANE RODRÍGUEZ #### [facility] [address] [place] [address] Dr. Hans Muniz NEUT # 3.3 103/ul Normal 1.4-6.5 [facility] Comment on above: Performed By: #### YANE RODRÍGUEZ #### [facility] [address] [place] [address] Dr. Hans Muniz Neutrophils/100 WBC (Bld) 45.9 % Normal 43.0-75.0 [facility] Comment on above: Performed By: #### YANE RODRÍGUEZ #### [facility] [address] [place] [address] Dr. Hans Muniz Platelet mean volume (Bld) [Entitic vol] 8.9 fL Critically low 9.5-13.5 [facility] Comment on above: Performed By: #### YANE RODRÍGUEZ #### [facility] [address] [place] [address] Dr. Hans Muniz PLT 291 103/ul Normal 150-450 [facility] Comment on above: Performed By: #### YANE RODRÍGUEZ #### [facility] [address] [place] [address] Dr. Hans Muniz RBC 4.83 106/ul Normal 4.20-5.40 [facility] Comment on above: Performed By: #### YANE RODRÍGUEZ #### [facility] [address] [place] [address] Dr. Hans Muniz WBC 7.3 103/ul Normal 4.0-11.0 [facility] Comment on above: Performed By: #### YANE RODRÍGUEZ #### [facility] [address] [place] [address] [id number] [address] Hans Muniz PREG HCG QUALon 06-30-2022 , QUAL Negative Normal NEGATIVE [facility] Comment on above: Performed By: #### G IPANEL #### [facility] [address] [place], [place] [address] Dr. Hans Muniz Covid-19 PCR ([facility])on 06-09 SARS-CoV-2 (COVID-19) RNA BALTAZAR+probe Ql (Unsp spec) Not detected Normal NOT DETECTED [facility] Comment on above: Result Comment: This test is not yet approved or cleared by the [place] FDA. When there are no FDA-approved or cleared tests available, and other criteria are met, FDA can make tests available under an emergency access mechanism called an Emergency Use Authorization (EUA). The EUA for this test is supported by the [place] of Health and Human Service's (HHS's) declaration that circumstances exist to justify the emergency use of in vitro diagnostics for the detection and/or diagnosis of the virus that causes COVID-19. This EUA will remain in effect (meaning this test can be used) for the duration of the COVID-19 declaration justifying emergency of IVDs, unless it is terminated or revoked by FDA (after which the test may no longer be used). When diagnostic testing is negative, the possibility of a false negative should be considered in the context of a patient's recent exposures and the presence of clinical signs and symptoms consistent with SARS-CoV-2. Performed By: #### C VDTB #### [facility] [address] [place], [place] [id number] Dr. Hans Muniz US PELVIS AND TRANSVAGon US PELVIS AND TRANSVAG EXAMINATION: US PELVIS AND TRANSVAG HISTORY: Pelvic and perineal pain COMPARISON: Ultrasound pelvis 04/15/2020 TECHNIQUE: Transabdominal and transvaginal sonographic examination. FINDINGS: UTERUS: Normal size and appearance. Uterus size: 8.1 x 3.2 x 4.5 cm ENDOMETRIUM: Normal homogeneous appearance. Endometrial thickness: 3 mm RIGHT OVARY: Normal size and appearance. Duplex Doppler demonstrates normal waveform and flow; resistive index 0.6. Ovary size: 2.4 x 1.1 x 1.1 cm LEFT OVARY: Normal size and appearance. Duplex Doppler demonstrates normal waveform and flow; resistive index 0.6. Ovary size: 1.7 x 0.9 x 1.8 cm CUL-DE-SAC: Unremarkable. No significant free fluid. BLADDER: Unremarkable. OTHER: None. IMPRESSION: 1. No abnormal or suspicious findings to account for patient's symptoms. Electronically authenticated by: ILENEZEKE MERCADO Date: 2022-06-19 07:24 [facility] PAP ACOG PANEL 2: 23 to 31on 01-03-2022 . . Normal [facility] Comment on above: Performed By: #### E FERN, UMICRO #### [facility] [address] [place] [address] Dr. Hans Muniz Age Gdln ACOG Testing [facility] Comment on above: Performed By: #### Lora SHIRLEY, UMICRO #### [facility] [address] [place] [address] Dr. Hans Muniz DIAGNOSIS: Comment [facility] Comment on above: Result Comment: NEGA TIVE FOR INTRAEPITHELIAL LESION OR MALIGNANCY. Performed By: #### Lora SHIRLEY, UMICRO #### [facility] [address] [address] [address] Hans Muniz Methodology: Comment [facility] Comment on above: Result Comment: This liquid based ThinPrep(R) pap test was screened with the use of an image guided system. Performed By: #### Lora SHIRLEY, UMICRO #### [facility] [address] [address] [address] Hans Muniz Note: Comment [facility] Comment on above: Result Comment: The Pap smear is a screening test designed to aid in the detection of premalignant and malignant conditions of the uterine cervix. It is not a diagnostic procedure and should not be used as the sole means of detecting cervical cancer. Both false-positive and false-negative reports do occur. . Performed By: #### E JENNIFERR, UMICRO #### [facility] [address] [address] [address] Hans Muniz Performed by: Comment Normal [facility] Comment on above: Result Comment: Marlene Silva, Social Services Designee Performed By: #### YANE RODRÍGUEZ #### [facility] [address] [place] [address] Dr. Hans Muniz Reflex Criteria: Comment Normal [facility] Comment on above: Result Comment: The HPV DNA reflex criteria were not met with this specimen result therefore, no HPV testing was performed. . Performed By: #### SHAWN RODRÍGUEZRO #### [facility] [address] [place] [address] Dr. Hans Muniz Specimen adequacy: Comment Normal [facility] Comment on above: Result Comment: Sati sfactory for evaluation. Endocervical and/or squamous metaplastic cells (endocervical component) are present. Performed By: #### SHAWN RODRÍGUEZRO #### [facility] [address] [place] [address] Dr. Hans Muniz CHLAMYDIA/GONOCOCCUS BALTAZAR (SW AB/URINE/PAPon 12-31-2021 Chlamydia trachomatis, BALTAZAR Negative Normal Negative [facility] Comment on above: Performed By: #### G IPANEL #### [facility] [address] [place] [address] Dr. Hasn Muniz Neisseria gonorrhoeae, BALTAZAR Negative Normal Negative [facility] Comment on above: Performed By: #### G IPANEL #### [facility] [address] [place] [address] Dr. Hans Muniz VAGINITIS/VAGINOSIS DNA PROB Ervin 12-30-2021 Ofe species Negative Normal Negative [facility] Comment on above: Performed By: #### G IPANEL #### [facility] [address] [place] [address] Dr. Hans Muniz Gardnerella vaginalis Positive Abnormal Negative [facility] Comment on above: Performed By: #### G IPANEL #### [facility] [address] [place] [address] Dr. Hans Muniz Trichomonas vaginalis Negative Normal Negative [facility] Comment on above: Performed By: #### G IPANEL #### [facility] [address] [place] [address] Dr. Hans Muniz HEPATITIS PANEL, ACUTEon HBsAg Screen Negative Normal Negative [facility] Comment on above: Performed By: #### E RUR, UMICRO #### [facility] [address] [place] [address] Dr. Hans Muniz Hep A Ab, IgM Negative Normal Negative [facility] Comment on above: Performed By: #### E RUR, UMICRO #### [facility] [address] [address] [address] Hans Muniz Hep B Core Ab, IgM Negative Normal Negative [facility] Comment on above: Performed By: #### E RUR, UMICRO #### [facility] [address] [place] [address] Dr. Hans Muniz Hep C Virus Ab <0.1 Normal 0.0-0.9 [facility] Comment on above: Result Comment: Nega tive: < 0.8 Indeterminate: 0.8 - 0.9 Positive: > 0.9 . The CDC recommends that a positive HCV antibody result be followed up with a HCV Nucleic Acid Amplification test (960213). Effective February 06, 2022 Hepatitis Panel (4) will be made non-orderable. [facility] offers order code [id number] Acute Hepatitis. Performed By: #### E RUR, UMICRO #### [facility] [address] [place] [address] Dr. Hans Muniz HERPES SIMPLEX 1/2 IGGon HSV 1 IgG, Type Spec 37.40 index Critically high 0.00-0.90 [facility] Comment on above: Result Comment: Nega tive <0.91 Equivocal 0.91 - 1.09 Positive >1.09 Note: Negative indicates no antibodies detected to HSV-1. Equivocal may suggest early infection. If clinically appropriate, retest at later date. Positive indicates antibodies detected to HSV-1. Performed By: #### H SV IGG #### [facility] [address] [place] [address] Dr. Hans Muniz HSV 2 IgG Type Spec <0.91 Normal 0.00-0.90 [facility] Comment on above: Result Comment: Nega tive <0.91 Equivocal 0.91 - 1.09 Positive >1.09 Note: Negative indicates no HSV-2 antibodies detected. Positive indicates HSV-2 antibodies detected. Equivocal and low positive HSV-2 screens (Index 0.91-5.00) may be false positive and are reflexed to supplemental testing in accordance with CDC guidelines. Performed By: #### H SV IGG #### [facility] [address] [place] [address] Dr. Hans Muniz HERPES SIMPLEX 1/2 IGMon HSV, IgM I/II Combination <0.91 Normal 0.00-0.90 [facility] Comment on above: Result Comment: Nega tive <0.91 Equivocal 0.91 - 1.09 Positive >1.09 Performed By: #### H SVIGM #### [facility] [address] [place] [address] Dr. Hans Muniz HIV 1 AND 2 WITH REFLEXon HIV Screen 4th Generation wRfx Non-Reactive Normal Non Reactive [facility] Comment on above: Result Comment: HIV Negative HIV-1/HIV-2 antibodies and HIV-1 p24 antigen were NOT detected. There is no laboratory evidence of HIV infection. Performed By: #### G IPANEL #### [facility] [address] [place] [address] Dr. Hans Muniz RPR QUANTon 12-29-2021 Rapid Plasma Reagin, Quant Non-Reactive Normal NonRea<1:1 [facility] Comment on above: Performed By: #### YANE RODRÍGUEZ #### [facility] [address] [place] [address] Dr. Hans Muniz CBC AUTO DIFFon 11-23-2021 BASO # 0.0 103/ul Normal 0.0-0.1 [facility] Comment on above: Performed By: #### YANE RODRÍGUEZ #### [facility] [address] [place] [address] Dr. Hans Muniz Basophils/100 WBC (Bld) 0.7 % Normal 0.2-2.0 [facility] Comment on above: Performed By: #### SHAWN RODRÍGUEZRO #### [facility] [address] [place] [address] Dr. Hans Muniz EO # 0.1 103/ul Normal 0.0-0.7 [facility] Comment on above: Performed By: #### SHAWN RODRÍGUEZRO #### [facility] [address] [place] [address] Dr. Hans Muniz Eosinophils/100 WBC (Bld) 1.2 % Normal 0.9-7.0 [facility] Comment on above: Performed By: #### SHAWN RODRÍGUEZRO #### [facility] [address] [place] [address] Dr. Hans Muniz Erythrocyte distribution width (RBC) [Ratio] 14.1 % Normal 11.0-15.0 [facility] Comment on above: Performed By: #### SHAWN RODRÍGUEZRO #### [facility] [address] [place] [address] Dr. Hans Muniz Hematocrit (Bld) [Volume fraction] 41.3 % Normal 36.0-48.0 [facility] Comment on above: Performed By: #### SHAWN RODRÍGUEZRO #### [facility] [address] [place] [address] Dr. Hans Muniz Hemoglobin (Bld) [Mass/Vol] 13.3 g/dL Normal 12.0-16.0 [facility] Comment on above: Performed By: #### SHAWN RODRÍGUEZRO #### [facility] [address] [place] [address] Dr. Hans Muniz IG # 0.01 10e3/ul Normal 0.00-0.03 [facility] Comment on above: Performed By: #### SHAWN RODRÍGUEZRO #### [facility] [address] [place] [address] Dr. Hans Muniz IG % 0.2 % Normal 0.0-0.5 [facility] Comment on above: Performed By: #### SHAWN RODRÍGUEZRO #### [facility] [address] [place] [address] Dr. Hans Muniz LYMPH # 1.1 103/ul Critically low 1.2-3.8 [facility] Comment on above: Performed By: #### YANE RODRÍGUEZ #### [facility] [address] [place] [address] Dr. Hans Muniz Lymphocytes/100 WBC (Bld) 25.2 % Normal 20.5-60.0 [facility] Comment on above: Performed By: #### SHAWN RODRÍGUEZRO #### [facility] [address] [place] [address] Dr. Hans Muniz MANUAL DIFF REQ NO Normal [facility] Comment on above: Performed By: #### YANE RODRÍGUEZ #### [facility] [address] [place] [address] Dr. Hans Muniz MCH (RBC) [Entitic mass] 26.7 pg Normal 26.7-34.0 [facility] Comment on above: Performed By: #### SHAWN RODRÍGUEZRO #### [facility] [address] [place] [address] Dr. Hans Muniz MCHC (RBC) [Mass/Vol] 32.2 g/dL Normal 29.9-35.2 [facility] Comment on above: Performed By: #### YANE RODRÍGUEZ #### [facility] [address] [place] [address] Dr. Hans Muniz MCV (RBC) [Entitic vol] 82.8 fL Normal 81.0-99.0 [facility] Comment on above: Performed By: #### SHAWN RODRÍGUEZRO #### [facility] [address] [place] [address] Dr. Hans Muniz MONO # 0.4 103/ul Normal 0.3-0.8 [facility] Comment on above: Performed By: #### SHAWN RODRÍGUEZRO #### [facility] [address] [place] [address] Dr. Hans Muniz Monocytes/100 WBC (Bld) 9.3 % Normal 1.7-12.0 [facility] Comment on above: Performed By: #### MAGALIS RODRÍGUEZICRO #### [facility] [address] [place] [address] Dr. Hans Muniz NEUT # 2.7 103/ul Normal 1.4-6.5 [facility] Comment on above: Performed By: #### Lora SHIRLEY UMICRO #### [facility] [address] [place] [address] Dr. Hans Muniz Neutrophils/100 WBC (Bld) 63.4 % Normal 43.0-75.0 [facility] Comment on above: Performed By: #### Lora SHIRLEY ICRO #### [facility] [address] [place] [address] Dr. Hans Muniz Platelet mean volume (Bld) [Entitic vol] 9.6 fL Normal 9.5-13.5 [facility] Comment on above: Performed By: #### Lora SHIRLEY ICRO #### [facility] [address] [place] [address] Dr. Hans Muniz PLT 252 103/ul Normal 150-450 [facility] Comment on above: Performed By: #### Lora SHIRLEY ICRO #### [facility] [address] [place] [address] Dr. Hans Muniz RBC 4.99 106/ul Normal 4.20-5.40 [facility] Comment on above: Performed By: #### Lora SHIRLEY ICRO #### [facility] [address] [place] [address] Dr. Hans Muniz WBC 4.2 103/ul Normal 4.0-11.0 [facility] Comment on above: Performed By: #### Lora SHIRLEY ICRO #### [facility] [address] [place] [address] Dr. Hans Muniz GI PANEL (PCR)on 11-23-2021 Adenovirus F 40/41 Not detected Normal NOT DETECTED [facility] Comment on above: Performed By: #### G IPANEL #### [facility] [address] [place] [address] Dr. Hans Muniz Astrovirus Detected Abnormal NOT DETECTED [facility] Comment on above: Performed By: #### G IPANEL #### [facility] [address] [address] [address] Hans Muniz C. Diff toxin A/B Detected Critically abnormal NOT DETECTED [facility] Comment on above: Performed By: #### G IPANEL #### [facility] [address] [address] [address] Hans Muniz Campylobacter Not detected Normal NOT DETECTED [facility] Comment on above: Performed By: #### G IPANEL #### [facility] [address] [address] [address] Hans Muniz Cryptosporidium Not detected Normal NOT DETECTED [facility] Comment on above: Performed By: #### G IPANEL #### [facility] [address] [address] [address] Hans Muniz Cyclos. Cayetanensis Not detected Normal NOT DETECTED [facility] Comment on above: Performed By: #### G IPANEL #### [facility] [address] [address] [address] Hans Muniz E. Coli O157 Not Applicable Normal Not Applicable [facility] Comment on above: Performed By: #### G IPANEL #### [facility] [address] [place] [address] Dr. Hans Muniz E. histolytica Not detected Normal NOT DETECTED [facility] Comment on above: Performed By: #### G IPANEL #### [facility] [address] [address] [address] Hans Muniz EAEC Not detected Normal NOT DETECTED [facility] Comment on above: Performed By: #### G IPANEL #### [facility] [address] [place] [address] Dr. Hans Muniz EIEC Not detected Normal NOT DETECTED [facility] Comment on above: Performed By: #### G IPANEL #### [facility] [address] [place] [address] Dr. Hans Muniz EPEC Not detected Normal NOT DETECTED [facility] Comment on above: Performed By: #### G IPANEL #### [facility] [address] [address] [address] Hans Muniz ETEC Not detected Normal NOT DETECTED [facility] Comment on above: Performed By: #### G IPANEL #### [facility] [address] [address] [address] Hans Bueno Lamblia Not detected Normal NOT DETECTED [facility] Comment on above: Performed By: #### G IPANEL #### [facility] [address] [address] [address] Hans NORIEGA CONTROLS PASSED Normal [facility] Comment on above: Performed By: #### G IPANEL #### [facility] [address] [address] [address] Hans RAMIREZ HEADER GI PANEL BACTERIA Normal T [facility] Comment on above: Performed By: #### G IPANEL #### [facility] [address] [place] [address] Dr. Hans CORONADO ECOLI GI PANEL DIARRHEAGENIC E.COLI / SHIGELLA Normal [facility] Comment on above: Performed By: #### G IPANEL #### [facility] [address] [place] [address] Dr. Hans CORONADO INFO SEE BELOW [facility] Comment on above: Result Comment: EAEC - Enteroaggregative E. Coli EPEC- Enteropathogenic E. Coli ETEC- Enterotoxigenic E. Coli lt/st STEC- Shigella-like toxin-producing E. Coli stx1/stx2 EIEC- Shigella/Enteroinvasive E. Coli Performed By: #### G IPANEL #### [facility] [address] [place] [address] Dr. Hans CORONADO PARASITES GI PANEL PARASITES Normal [facility] Comment on above: Performed By: #### G IPANEL #### [facility] [address] [place] [address] Dr. Hans CORONADO VIRUS GI PANEL VIRUSES Normal [facility] Comment on above: Performed By: #### G IPANEL #### [facility] [address] [place] [address] Dr. Hans Muniz Norovirus GI/GII Not detected Normal NOT DETECTED [facility] Comment on above: Performed By: #### G IPANEL #### [facility] [address] [place] [address] Dr. Hans Muniz P. Shigelloides Not detected Normal NOT DETECTED [facility] Comment on above: Performed By: #### G IPANEL #### [facility] [address] [place] [address] Dr. Hans Muniz Rotavirus A Not detected Normal NOT DETECTED [facility] Comment on above: Performed By: #### G IPANEL #### [facility] [address] [place] [address] Dr. Hans Muniz Salmonella Not detected Normal NOT DETECTED [facility] Comment on above: Performed By: #### G IPANEL #### [facility] [address] [place] [address] Dr. Hans Muniz Sapovirus Not detected Normal NOT DETECTED [facility] Comment on above: Performed By: #### G IPANEL #### [facility] [address] [place] [address] Dr. Hans Muniz STEC Not detected Normal NOT DETECTED [facility] Comment on above: Performed By: #### G IPANEL #### [facility] [address] [place] [address] Dr. Hans Muniz Vibrio Not detected Normal NOT DETECTED [facility] Comment on above: Performed By: #### G IPANEL #### [facility] [address] [place] [address] Dr. Hans Muniz Vibrio Cholera Not detected Normal NOT DETECTED [facility] Comment on above: Performed By: #### G IPANEL #### [facility] [address] [place] [address] Dr. Hans Muniz Y. Enterocolitica Not detected Normal NOT DETECTED [facility] Comment on above: Performed By: #### G IPANEL #### [facility] [address] [place] [address] Dr. Hans Muniz PROF 14(COMP METB)on 022 Albumin [Mass/Vol] 3.6 g/dL Normal 3.5-5.0 [facility] Comment on above: Performed By: #### G IPANEL #### [facility] [address] [place] [address] Dr. Hans Muniz Albumin/Globulin [Mass ratio] 0.9 {ratio} Normal [facility] Comment on above: Performed By: #### G IPANEL #### [facility] [address] [address] [address] Hans Muniz ALP [Catalytic activity/Vol] 80 U/L Normal 38-126 [facility] Comment on above: Performed By: #### G IPANEL #### [facility] [address] [place] [address] Dr. Hans Muniz ALT [Catalytic activity/Vol] 41 U/L Normal 9-52 [facility] Comment on above: Performed By: #### G IPANEL #### [facility] [address] [place] [address] Dr. Hans Muniz Anion gap [Moles/Vol] 9.8 mmol/L Normal [facility] Comment on above: Performed By: #### G IPANEL #### [facility] [address] [place] [address] Dr. Hans Muniz AST [Catalytic activity/Vol] 34 U/L Normal 14-36 [facility] Comment on above: Performed By: #### G IPANEL #### [facility] [address] [place] [address] Dr. Hans Muniz Bilirubin [Mass/Vol] 0.3 mg/dL Normal 0.2-1.3 [facility] Comment on above: Performed By: #### G IPANEL #### [facility] [address] [place] [address] Dr. Hans Muniz Calcium [Mass/Vol] 8.8 mg/dL Normal 8.4-10.2 [facility] Comment on above: Performed By: #### G IPANEL #### [facility] [address] [place] [address] Dr. Hans Muniz Chloride [Moles/Vol] 105 mmol/L Normal 98-107 [facility] Comment on above: Performed By: #### G IPANEL #### [facility] [address] [address] [address] Hans Muniz CO2 [Moles/Vol] 24.2 mmol/L Normal 22.0-30.0 [facility] Comment on above: Performed By: #### G IPANEL #### [facility] [address] [address] [address] Hans Muniz Creatinine [Mass/Vol] 0.76 mg/dL Normal 0.52-1.04 [facility] Comment on above: Performed By: #### G IPANEL #### [facility] [address] [address] [address] Hans Muniz EGFR-AF SERBIAN >60 Normal >=60 [facility] Comment on above: Performed By: #### G IPANEL #### [facility] [address] [place] [address] Dr. Hans Muniz EGFR-NON AF SERBIAN >60 Normal >=60 [facility] Comment on above: Performed By: #### G IPANEL #### [facility] [address] [address] [address] Hans Muniz Globulin (S) [Mass/Vol] 4.1 g/dL Normal [facility] Comment on above: Performed By: #### G IPANEL #### [facility] [address] [place] [address] Dr. Hans Muniz Glucose [Mass/Vol] 99 mg/dL Normal 74-106 [facility] Comment on above: Performed By: #### G IPANEL #### [facility] [address] [place] [address] Dr. Hans Muniz Potassium [Moles/Vol] 3.0 mmol/L Critically low 3.4-5.0 [facility] Comment on above: Performed By: #### G IPANEL #### [facility] [address] [place] [address] Dr. Hans Muniz Protein [Mass/Vol] 7.7 g/dL Normal 6.1-8.2 [facility] Comment on above: Performed By: #### G IPANEL #### [facility] [address] [place], [place] [address] Dr. Hans Muniz Sodium [Moles/Vol] 135 mmol/L Critically low 137-145 Th [facility] Comment on above: Performed By: #### G IPANEL #### [facility] [address] [place], [place] [address] Dr. Hans Muniz Urea nitrogen [Mass/Vol] 10.0 mg/dL Normal 7.0-17.0 [facility] Comment on above: Performed By: #### G IPANEL #### [facility] [address] [place], [place] [address] Dr. Hans Muniz Urea nitrogen/Creatinine [Mass ratio] 13.2 mg/mg Normal [facility] Comment on above: Performed By: #### G IPANEL #### [facility] [address] [place], [place] [address] Dr. Hans Muniz XR CHEST 2 Von 11-16-2021 XR CHEST 2 V This study was read during a downtime in the [place] [employer] system. The actual time dictated and approved is in the body of the report. PROCEDURE: RADIOGRAPH CHEST 2 VIEWS COMPARISON: XR CHEST 2 V, 07/24/2018. INDICATIONS: Pleuritic pain FINDINGS: LUNGS: No significant pulmonary parenchymal abnormalities. VASCULATURE: No increased pulmonary vasculature. PLEURA: No pneumothorax, effusion, or pleural thickening. CARDIAC: No cardiomegaly or cardiac silhouette abnormality. MEDIASTINUM: No visible mass or adenopathy. BONES: No fracture or visible bone lesion. OTHER: Bilateral nipple piercing CONCLUSION: No acute disease. Dictated by: Melinda Lane MD on 11/15/2021 at 14:47 Approved by: Melinda Lane MD on 11/15/2021 at 14:48 Electronically authenticated by: MELINDA LANE Date: 2021-11-16 10:10 Normal [facility] XR RIBS RT NO CH 2Von 2021 XR RIBS RT NO CH 2V EXAMINATION: XR RIBS RT NO CH 2V HISTORY: Pleuritic pain COMPARISON: No relevant comparison available. FINDINGS: RIBS: Normal. No significant arthropathy or acute abnormality. LUNGS: No appreciable pneumothorax or pleural thickening. OTHER: Negative. IMPRESSION: 1. No appreciable right rib abnormality. Electronically authenticated by: ILENE MERCADO Date: 2021-11-16 06:53 Normal [facility] MG MAMM DIAGNOSTIC 3D POLINA CA Don 11-15-2021 MG MAMM DIAGNOSTIC 3D POLINA CAD Patient: BRIAN SULLIVAN Exam Date: 11/15/2021 : 1995 Gender:F Ordering : DR SHAUN AVILES Admission #: [id number] Family : Order #: [id number] CLICK HERE TO VIEW EXAM RADIOLOGY REPORT PROCEDURE: MAMMOGRAM DIAGNOSTIC 3D BILATERAL CAD, 11/15/2021, 10:02 ULTRASOUND BREAST BILATERAL LIMITED, 11/15/2021, 10:38 COMPARISON: None. INDICATIONS: Pain of breast Calculator Name NCI Breast Cancer Risk Assessment Tool 5 Year Breast Cancer Risk Not Applicable. Lifetime Breast Cancer Risk Not Applicable. Personal Breast Cancer No Personal Ovarian Cancer No Treatments None Family Cancers Mother with ovarian cancer at age 50. LOCATION: [facility] BREAST COMPOSITION: Extremely dense, which lowers the sensitivity of mammography. FINDINGS: DIAGNOSTIC CATEGORY 3--PROBABLY BENIGN FINDING. THE FOLLOWING FINDING(S) HAS A HIGH PROBABILITY OF A BENIGN ETIOLOGY: RIGHT BREAST: No significant suspicious finding on mammography. Ultrasound evaluation of the subareolar region demonstrates normal appearing fibroglandular tissue; no dilated ducts or suspicious findings. LEFT BREAST: 3 separate masses within the posterior upper-outer quadrant on mammography. Ultrasound evaluation demonstrates 2 benign-appearing lymph nodes at the 1 o'clock position. At the 11 o'clock position is a geographic shaped hypoechoic mass versus lymph node versus atypical appearance of fatty tissue intermixed with fibroglandular tissue, 1.6 x 1.8 x 0.7 cm. No appreciable internal blood flow. Follow-up ultrasound evaluation of left breast in 3 months is recommended to evaluate for stability versus regression of this area. If findings persist or have increased, ultrasound-guided tissue sampling should be considered. RECOMMENDATIONS: SHORT TERM FOLLOW-UP ULTRASOUND LEFT BREAST IN 3 MONTHS. PLEASE NOTE: A NORMAL MAMMOGRAM DOES NOT EXCLUDE THE POSSIBILITY OF BREAST CANCER. A CLINICALLY SUSPICIOUS PALPABLE LUMP SHOULD BE BIOPSIED. Dictated by: Ilene Mercado M.D. on 11/15/2021 at 11:54 Approved by: Ilene Mercado M.D. on 11/15/2021 at 12:01 Normal [facility] US BREAST POLINA LIMITEDon 02-0 US BREAST POLINA LIMITED Patient: BRIAN SULLIVAN Exam Date: 11/15/2021 : 1995 Gender:F Ordering : DR SHAUN AVILES Admission #: [id number] Family : Order #: [id number] CLICK HERE TO VIEW EXAM RADIOLOGY REPORT PROCEDURE: MAMMOGRAM DIAGNOSTIC 3D BILATERAL CAD, 11/15/2021, 10:02 ULTRASOUND BREAST BILATERAL LIMITED, 11/15/2021, 10:38 COMPARISON: None. INDICATIONS: Pain of breast Calculator Name NCI Breast Cancer Risk Assessment Tool 5 Year Breast Cancer Risk Not Applicable. Lifetime Breast Cancer Risk Not Applicable. Personal Breast Cancer No Personal Ovarian Cancer No Treatments None Family Cancers Mother with ovarian cancer at age 50. LOCATION: [facility] BREAST COMPOSITION: Extremely dense, which lowers the sensitivity of mammography. FINDINGS: DIAGNOSTIC CATEGORY 3--PROBABLY BENIGN FINDING. THE FOLLOWING FINDING(S) HAS A HIGH PROBABILITY OF A BENIGN ETIOLOGY: RIGHT BREAST: No significant suspicious finding on mammography. Ultrasound evaluation of the subareolar region demonstrates normal appearing fibroglandular tissue; no dilated ducts or suspicious findings. LEFT BREAST: 3 separate masses within the posterior upper-outer quadrant on mammography. Ultrasound evaluation demonstrates 2 benign-appearing lymph nodes at the 1 o'clock position. At the 11 o'clock position is a geographic shaped hypoechoic mass versus lymph node versus atypical appearance of fatty tissue intermixed with fibroglandular tissue, 1.6 x 1.8 x 0.7 cm. No appreciable internal blood flow. Follow-up ultrasound evaluation of left breast in 3 months is recommended to evaluate for stability versus regression of this area. If findings persist or have increased, ultrasound-guided tissue sampling should be considered. RECOMMENDATIONS: SHORT TERM FOLLOW-UP ULTRASOUND LEFT BREAST IN 3 MONTHS. PLEASE NOTE: A NORMAL MAMMOGRAM DOES NOT EXCLUDE THE POSSIBILITY OF BREAST CANCER. A CLINICALLY SUSPICIOUS PALPABLE LUMP SHOULD BE BIOPSIED. Dictated by: Ilene Mercado M.D. on 11/15/2021 at 11:54 Approved by: Ilene Mercado M.D. on 11/15/2021 at 12:01 Normal [facility] FERRITINon 09-29-2021 Ferritin [Mass/Vol] 12 ng/mL Critically low 15-[address] [facility] Comment on above: Performed By: #### G IPANEL #### [facility] [address] [address] [address] Hans Muniz VIT D 25-OH [employer]ABC[employer]on 2020 Vitamin D, 25-Hydroxy 29.8 ng/mL Critically low 30.0-100.0 [facility] Comment on above: Result Comment: Jeannie min D deficiency has been defined by the [place] [employer] and an Endocrine Society practice guideline as a level of serum 25-OH vitamin D less than 20 ng/mL (1,2). The Endocrine Society went on to further define vitamin D insufficiency as a level between 21 and 29 ng/mL (2). 1. IOM ([place] [employer]). 2010. Dietary reference intakes for calcium and D. [place]: The National Academies Press. 2. Monique JARAMILLO, Tatum SAVAGE, Matt TAYLOR, et al. Evaluation, treatment, and prevention of vitamin D deficiency: an Endocrine Society clinical practice guideline. JCEM. 2010; 96(7):1911-30. Performed By: #### G IPANEL #### [facility] [address] [place] [address] Dr. Hans Muniz CBC AUTO DIFFon 09-28-2021 BASO # 0.0 103/ul Normal 0.0-0.1 [facility] Comment on above: Performed By: #### G IPANEL #### [facility] [address] [place] [address] Dr. Hans Muniz Basophils/100 WBC (Bld) 0.4 % Normal 0.2-2.0 [facility] Comment on above: Performed By: #### G IPANEL #### [facility] [address] [address] [address] Hans Muniz EO # 0.2 103/ul Normal 0.0-0.7 [facility] Comment on above: Performed By: #### G IPANEL #### [facility] [address] [place] [address] Dr. Hans Muniz Eosinophils/100 WBC (Bld) 3.1 % Normal 0.9-7.0 [facility] Comment on above: Performed By: #### G IPANEL #### [facility] [address] [place] [address] Dr. Hans Muniz Erythrocyte distribution width (RBC) [Ratio] 14.3 % Normal 11.0-15.0 [facility] Comment on above: Performed By: #### G IPANEL #### [facility] [address] [place] [address] Dr. Hans Muniz Hematocrit (Bld) [Volume fraction] 38.3 % Normal 36.0-48.0 [facility] Comment on above: Performed By: #### G IPANEL #### [facility] [address] [place] [address] Dr. Hans Muniz Hemoglobin (Bld) [Mass/Vol] 12.0 g/dL Normal 12.0-16.0 [facility] Comment on above: Performed By: #### G IPANEL #### [facility] [address] [place] [address] Dr. Hans Muniz IG # 0.02 10e3/ul Normal 0.00-0.03 [facility] Comment on above: Performed By: #### G IPANEL #### [facility] [address] [place] [address] Dr. Hans Muniz IG % 0.3 % Normal 0.0-0.5 [facility] Comment on above: Performed By: #### G IPANEL #### [facility] [address] [place] [address] Dr. Hans Muniz LYMPH # 1.9 103/ul Normal 1.2-3.8 [facility] Comment on above: Performed By: #### G IPANEL #### [facility] [address] [place] [address] Dr. Hans Muniz Lymphocytes/100 WBC (Bld) 27.4 % Normal 20.5-60.0 [facility] Comment on above: Performed By: #### G IPANEL #### [facility] [address] [place] [address] Dr. Hans Muniz MANUAL DIFF REQ NO Normal [facility] Comment on above: Performed By: #### G IPANEL #### [facility] [address] [place] [address] Dr. Hans Muniz MCH (RBC) [Entitic mass] 26.2 pg Critically low 26.7-34.0 [facility] Comment on above: Performed By: #### G IPANEL #### [facility] [address] [place] [address] Dr. Hans Muniz MCHC (RBC) [Mass/Vol] 31.3 g/dL Normal 29.9-35.2 [facility] Comment on above: Performed By: #### G IPANEL #### [facility] [address] [place] [address] Dr. Hans Muniz MCV (RBC) [Entitic vol] 83.6 fL Normal 81.0-99.0 [facility] Comment on above: Performed By: #### G IPANEL #### [facility] [address] [place] [address] Dr. Hans Muniz MONO # 0.3 103/ul Normal 0.3-0.8 [facility] Comment on above: Performed By: #### G IPANEL #### [facility] [address] [place] [address] Dr. Hans Muniz Monocytes/100 WBC (Bld) 4.4 % Normal 1.7-12.0 [facility] Comment on above: Performed By: #### G IPANEL #### [facility] [address] [place] [address] Dr. Hans Muniz NEUT # 4.3 103/ul Normal 1.4-6.5 [facility] Comment on above: Performed By: #### G IPANEL #### [facility] [address] [place] [address] Dr. Hans Muniz Neutrophils/100 WBC (Bld) 64.4 % Normal 43.0-75.0 [facility] Comment on above: Performed By: #### G IPANEL #### [facility] [address] [place] [address] Dr. Hans Muniz Platelet mean volume (Bld) [Entitic vol] 9.5 fL Normal 9.5-13.5 [facility] Comment on above: Performed By: #### G IPANEL #### [facility] [address] [address] [address] Hans Muniz PLT 296 103/ul Normal 150-450 [facility] Comment on above: Performed By: #### G IPANEL #### [facility] [address] [address] [address] Hans Muniz RBC 4.58 106/ul Normal 4.20-5.40 [facility] Comment on above: Performed By: #### G IPANEL #### [facility] [address] [address] [address] Hans Muniz WBC 6.8 103/ul Normal 4.0-11.0 [facility] Comment on above: Performed By: #### G IPANEL #### [facility] [address] [place] [address] Dr. Hans Muniz FREE T4on 09-28-2021 Free T4 [Mass/Vol] 1.04 ng/dL Normal 0.78-2.19 [facility] Comment on above: Performed By: #### F T4 #### [facility] [address] [address] [address] Hans Muniz GLYCOHEMOGLOBIN A1Con 2020 ADA RECOMMENDATION ADA THERAPEUTIC TARGET 6.0 - 7.0 ACTION SUGGESTED > 7.0 Normal [facility] Comment on above: Performed By: #### G IPANEL #### [facility] [address] [place] [address] Dr. Hans Muniz Glucose [Mass/Vol] 91 mg/dL Normal [facility] Comment on above: Performed By: #### G IPANEL #### [facility] [address] [place] [address] Dr. Hans Muniz HbA1c (Bld) [Mass fraction] 4.8 % Normal <=6.0 [facility] Comment on above: Performed By: #### G IPANEL #### [facility] [address] [place] [address] Dr. Hans Muniz LIPID PROFILEon 09-28-2021 CHOL-HDL RATIO NORM SEE BELOW Normal [facility] Comment on above: Result Comment: 3.3 - 4.4 LOW RISK 4.4 - 7.1 AVERAGE RISK 7.1 - 11.0 MODERATE RISK >11.0 HIGH RISK Performed By: #### L IPID, TSH, CMP #### [facility] [address] [address] [address] Hans Muniz Cholesterol [Mass/Vol] 156 mg/dL Normal <=200 [facility] Comment on above: Performed By: #### L IPID, TSH, CMP #### [facility] [address] [address] [address] Hans Muniz Cholesterol in HDL [Mass/Vol] 46 mg/dL Normal [facility] Comment on above: Performed By: #### L IPID, TSH, CMP #### [facility] [address] [address] [address] Hans Muniz Cholesterol in LDL [Mass/Vol] 92.0 mg/dL Normal [facility] Comment on above: Performed By: #### L IPID, TSH, CMP #### [facility] [address] [address] [address] Hans Muniz Cholesterol.total/Cho lesterol in HDL [Mass ratio] 3.4 {ratio} Normal [facility] Comment on above: Performed By: #### L IPID, TSH, CMP #### [facility] [address] [address] [address] Hans Muniz HDL NORMAL > or = 60 mg/dl - LO W CARDIOVASCULAR RISK <40 mg/dl - HIGH CARDIOVASCULAR RISK Normal [facility] Comment on above: Performed By: #### L IPID, TSH, CMP #### [facility] [address] [address] [address] Hans Muniz LDL CALC NORMAL SEE BELOW Normal [facility] Comment on above: Result Comment: <100 mg/dl OPTIMAL 100 - 129 mg/dl NEAR OR ABOVE OPTIMAL 130 - 159 mg/dl BORDERLINE HIGH 160 - 189 mg/dl HIGH >190 mg/dl VERY HIGH Performed By: #### L IPID, TSH, CMP #### [facility] [address] [address] [address] Hans Muniz Triglyceride [Mass/Vol] 90 mg/dL Normal <=150 [facility] Comment on above: Performed By: #### L IPID, TSH, CMP #### [facility] [address] [place] [address] Dr. Hans Muniz VLDL CALC 18.0 mg/dL Normal [facility] Comment on above: Performed By: #### L IPID, TSH, CMP #### [facility] [address] [place] [address] Dr. Hans Muniz PROF 14(COMP METB)on 021 Albumin [Mass/Vol] 3.3 g/dL Critically low 3.5-5.0 [facility] Comment on above: Performed By: #### YANE RODRÍGUEZ #### [facility] [address] [place] [address] Dr. Hans Muniz Albumin/Globulin [Mass ratio] 0.8 {ratio} Normal [facility] Comment on above: Performed By: #### YANE RODRÍGUEZ #### [facility] [address] [place] [address] Dr. Hans Muniz ALP [Catalytic activity/Vol] 72 U/L Normal 38-126 [facility] Comment on above: Performed By: #### YANE RODRÍGUEZ #### [facility] [address] [place] [address] Dr. Hans Muniz ALT [Catalytic activity/Vol] 41 U/L Normal 9-52 [facility] Comment on above: Performed By: #### YANE RODRÍGUEZ #### [facility] [address] [place] [address] Dr. Hans Muniz Anion gap [Moles/Vol] 11.5 mmol/L Normal [facility] Comment on above: Performed By: #### YANE RODRÍGUEZ #### [facility] [address] [place] [address] Dr. Hans Muniz AST [Catalytic activity/Vol] 22 U/L Normal 14-36 [facility] Comment on above: Performed By: #### YANE RODRÍGUEZ #### [facility] [address] [address] [address] Hans Muniz Bilirubin [Mass/Vol] 0.6 mg/dL Normal 0.2-1.3 [facility] Comment on above: Performed By: #### SHAWN RODRÍGUEZRO #### [facility] [address] [place] [address] Dr. Hans Muniz Calcium [Mass/Vol] 8.7 mg/dL Normal 8.4-10.2 [facility] Comment on above: Performed By: #### Loar SHIRLEY UMICRO #### [facility] [address] [place] [address] Dr. Hans Muniz Chloride [Moles/Vol] 105 mmol/L Normal 98-107 [facility] Comment on above: Performed By: #### Lora SHIRLEY UMICRO #### [facility] [address] [place] [address] Dr. Hans Muniz CO2 [Moles/Vol] 25.0 mmol/L Normal 22.0-30.0 [facility] Comment on above: Performed By: #### Lora SHIRLEY UMICRO #### [facility] [address] [place] [address] Dr. Hans Muniz Creatinine [Mass/Vol] 0.68 mg/dL Normal 0.52-1.04 [facility] Comment on above: Performed By: #### Lora SHIRLEY UMICRO #### [facility] [address] [place] [address] Dr. Hans Muniz EGFR-AF SERBIAN >60 Normal >=60 [facility] Comment on above: Performed By: #### Lora SHIRLEY UMICRO #### [facility] [address] [place] [address] Dr. Hans Muniz EGFR-NON AF SERBIAN >60 Normal >=60 [facility] Comment on above: Performed By: #### Lora SHIRLEY UMICRO #### [facility] [address] [place] [address] Dr. Hans Muniz Globulin (S) [Mass/Vol] 3.9 g/dL Normal [facility] Comment on above: Performed By: #### E RUR, UMICRO #### [facility] [address] [place] [address] Dr. Hans Muniz Glucose [Mass/Vol] 80 mg/dL Normal 74-106 [facility] Comment on above: Performed By: #### E FERN UMICRO #### [facility] [address] [place] [address] Dr. Hans Muniz Potassium [Moles/Vol] 3.5 mmol/L Normal 3.4-5.0 [facility] Comment on above: Performed By: #### E FERN UMICRO #### [facility] [address] [place] [address] Dr. Hans Muniz Protein [Mass/Vol] 7.2 g/dL Normal 6.1-8.2 [facility] Comment on above: Performed By: #### E FERN UMICRO #### [facility] [address] [place] [address] Dr. Hans Muniz Sodium [Moles/Vol] 138 mmol/L Normal 137-145 [facility] Comment on above: Performed By: #### E FERN UMICRO #### [facility] [address] [place] [address] Dr. Hans Muniz Urea nitrogen [Mass/Vol] 6.0 mg/dL Critically low 7.0-17.0 [facility] Comment on above: Performed By: #### Lora SHIRLEY UMICRO #### [facility] [address] [place] [address] Dr. Hans Muniz Urea nitrogen/Creatinine [Mass ratio] 8.8 mg/mg Normal [facility] Comment on above: Performed By: #### E FERN UMICRO #### [facility] [address] [place] [address] Dr. Hans Muniz TSHon 09-28-2021 TSH 0.629 uIU/mL Normal 0.470-4.680 [facility] Comment on above: Performed By: #### E RULucia, UMICRO #### [facility] [address] [place] [address] Dr. Hans Muniz TSH RANGE SEE BELOW Normal [facility] Comment on above: Result Comment: <0.3 4 UIU/ml HYPERTHYROID 0.34-5.60 UIU/ml EUTHYROID >5.60 UIU/ml HYPOTHYROID Performed By: #### YANE RODRÍGUEZ #### [facility] [address] [address] [address] Hans Muniz Vital Signs Date Time Vital Sign Value Performing Clinician Facility 04-15-2024 14:04-0400 Body height 160.02 cm DO Shaun Nicoláss Work Phone: [facility] 04-15-2024 14:04-0400 Body mass index (BMI) [Ratio] 23.9 kg/m2 DO Shaun Nicoláss Work Phone: [facility] 04-15-2024 14:04-0400 Body weight 61.23 kg DO Shaun Nicoláss Work Phone: [facility] 01-29-2024 12:58-0400 Body height 160.02 cm DO Shaun Nicoláss Work Phone: [facility] 01-29-2024 12:58-0400 Body mass index (BMI) [Ratio] 26.2 kg/m2 DO Shuan Kuns Work Phone: [facility] 01-29-2024 12:58-0400 Body weight 67.13 kg DO Shaun Nicoláss Work Phone: [facility] 01-29-2024 12:58-0400 Diastolic blood pressure 70 mm[Hg] DO Shaun iNcoláss Work Phone: [facility] 01-29-2024 12:58-0400 Heart rate 89 /min DO Shaun Kuns Work Phone: [facility] 01-29-2024 12:58-0400 Respiratory rate 16 /min DO Shaun Nicoláss Work Phone: [facility] 01-29-2024 12:58-0400 SaO2% (BldA) [Mass fraction] 99 % DO Shaunjairon Aviles Work Phone: [facility] 01-29-2024 12:58-0400 Systolic blood pressure 100 mm[Hg] DO Shaun Nicoláss Work Phone: [facility] 10-16-2023 13:20-0500 Body height 160.02 cm Lj Stanton Other [facility] 10-16-2023 13:20-0500 Body mass index (BMI) [Ratio] 25.68 kg/m2 Lj Scprincess Other [facility] Other 10-16-2023 13:20-0500 Body weight 65.77 kg Lj Scprincess Other [facility] 08-22-2023 10:06-0500 Diastolic blood pressure 62 mm[Hg] DO Shaunjairon Aviles Work Phone: [facility] 08-22-2023 10:06-0500 Heart rate 67 /min DO Shaun Monzons Work Phone: [facility] 08-22-2023 10:06-0500 Respiratory rate 16 /min DO Shaunjairon Monzons Work Phone: [facility] 08-22-2023 10:06-0500 SaO2% (BldA) [Mass fraction] 99 % DO Shaunjairon Aviles Work Phone: [facility] 08-22-2023 10:06-0500 Systolic blood pressure 102 mm[Hg] DO Shaun Nicoláss Work Phone: [facility] 08-22-2023 08:02-0500 Body height 162.56 cm DO Shaun Nicoláss Work Phone: [facility] 08-22-2023 08:02-0500 Body weight 64.41 kg DO Shaun Nicoláss Work Phone: [facility] 07-26-2023 13:00-0400 Body height 160.02 cm Shaun Aviles Other [facility] Other 07-26-2023 13:00-0400 Body mass index (BMI) [Ratio] 25.68 kg/m2 Shaun Aviles Other [facility] Other 07-26-2023 13:00-0400 Body weight 65.77 kg Shaun Aviles Other [facility] Other 07-26-2023 13:00-0400 Diastolic blood pressure 64 mm[Hg] Shaun Aviles Other [facility] Other 07-26-2023 13:00-0400 Respiratory rate 18 /min Shaun Aviles Other [facility] Other 07-26-2023 13:00-0400 SaO2% (BldA) [Mass fraction] 97 % Shaun Monzonbere Other [facility] Other 07-26-2023 13:00-0400 Systolic blood pressure 100 mm[Hg] Shaun Aviles Other [facility] Other 07-09-2023 13:20-0400 Body height 160.02 cm Lj Stanton Other [facility] Other 07-09-2023 13:20-0400 Body mass index (BMI) [Ratio] 25.68 kg/m2 Lj Stanton Other [facility] Other 07-09-2023 13:20-0400 Body weight 65.77 kg Lj Stanton Other [facility] Other 07-09-2023 13:20-0400 Diastolic blood pressure 76 mm[Hg] Lj Stanton Other [facility] Other 07-09-2023 13:20-0400 Systolic blood pressure 103 mm[Hg] Lj Stanton Other [facility] Other 07-01-2023 20:50-0400 Diastolic blood pressure 62 mm[Hg] [facility] 07-01-2023 20:50-0400 Heart rate 86 /min [facility] 07-01-2023 20:50-0400 Mean blood pressure 73 mm[Hg] [facility] 07-01-2023 20:50-0400 Respiratory rate 17 /min [facility] 07-01-2023 20:50-0400 SaO2% (BldA) [Mass fraction] 95 % [facility] 07-01-2023 20:50-0400 Systolic blood pressure 95 mm[Hg] [facility] 07-01-2023 19:58-0400 Heart rate 87 /min [facility] 07-01-2023 19:58-0400 Respiratory rate 16 /min [facility] 07-01-2023 19:58-0400 SaO2% (BldA) [Mass fraction] 95 % [facility] 07-01-2023 19:07-0400 Heart rate 89 /min [facility] 07-01-2023 19:07-0400 Respiratory rate 18 /min [facility] 07-01-2023 19:07-0400 SaO2% (BldA) [Mass fraction] 98 % [facility] 07-01-2023 17:52-0400 Body temperature 98.24 [degF] [facility] 07-01-2023 17:52-0400 Diastolic blood pressure 86 mm[Hg] Mirna Mcmullen [facility] 07-01-2023 17:52-0400 Mean blood pressure 97 mm[Hg] Mirna Mcmullen [facility] 07-01-2023 17:52-0400 Systolic blood pressure 120 mm[Hg] [facility]-05-[facility] 11:00-0400 Body height 160.02 cm Rell Marinelli Other [facility] Other 04-05-2023 11:00-0400 Body mass index (BMI) [Ratio] 27.81 kg/m2 Rell Marinelli Other [facility] Other 04-05-2023 11:00-0400 Body weight 71.22 kg Rell Marinelli Other [facility] Other 03-06-2023 13:45-0400 Body height 160.02 cm Shaun Aviles Other [facility] Other 03-06-2023 13:45-0400 Body mass index (BMI) [Ratio] 27.88 kg/m2 Shaun Aviles Other [facility] Other 03-06-2023 13:45-0400 Body weight 71.4 kg Shaun Aviles Other [facility] Other 03-06-2023 13:45-0400 Diastolic blood pressure 60 mm[Hg] Shaun Aviles Other [facility] Other 03-06-2023 13:45-0400 Respiratory rate 16 /min Shaun Aviles Other [facility] Other 03-06-2023 13:45-0400 SaO2% (BldA) [Mass fraction] 98 % Shaun Aviles Other [facility] Other 03-06-2023 13:45-0400 Systolic blood pressure 114 mm[Hg] Shaun Traci Other [facility] Other 08-21-2022 13:30-0500 Body height 160.02 cm Shaun Monzonbere Other [facility] Other 08-21-2022 13:30-0500 Body mass index (BMI) [Ratio] 25.15 kg/m2 Shaun Aviles Other [facility] Other 08-21-2022 13:30-0500 Body weight 64.41 kg Shaun Aviles Other [facility] Other 08-21-2022 13:30-0500 Diastolic blood pressure 60 mm[Hg] Shaun Aviles Other [facility] Other 08-21-2022 13:30-0500 Respiratory rate 16 /min Shaun Traci Other [facility] Other 08-21-2022 13:30-0500 SaO2% (BldA) [Mass fraction] 99 % Shaun Aviles Other [facility] Other 08-21-2022 13:30-0500 Systolic blood pressure 112 mm[Hg] Shaun Aviles Other [facility] Other 05-03-2022 13:00-0400 Body temperature 98.2 [degF] DO Denys Michel Work Phone: [facility] 05-03-2022 13:00-0400 Diastolic blood pressure 71 mm[Hg] DO Denys Itzkowitz Work Phone: [facility] 05-03-2022 13:00-0400 Heart rate 96 /min DO Denys Itzkowitz Work Phone: [facility] 05-03-2022 13:00-0400 Respiratory rate 16 /min DO Denys Itzkowitz Work Phone: [facility] 05-03-2022 13:00-0400 SaO2% (BldA) [Mass fraction] 98 % DO Denys Itzkowitz Work Phone: [facility] 05-03-2022 13:00-0400 Systolic blood pressure 114 mm[Hg] DO Denys Itzkowitz Work Phone: [facility] 04-28-2022 16:06-0400 Body temperature 97.7 [degF] Shabbir Morales [facility] 04-28-2022 16:06-0400 Diastolic blood pressure 82 mm[Hg] Shabbir Andrew [facility] 04-28-2022 16:06-0400 Heart rate 112 /min Shabbir Andrew [facility] 04-28-2022 16:06-0400 Respiratory rate 18 /min Shabbirneri Morales [facility] 04-28-2022 16:06-0400 SaO2% (BldA) [Mass fraction] 98 % Shabbir Andrew [facility] 04-28-2022 16:06-0400 Systolic blood pressure 132 mm[Hg] Shabbir Andrew [facility] 03-28-2022 16:15-0400 Body height 160.02 cm Shaun Aviles Other [facility] Other 03-28-2022 16:15-0400 Body mass index (BMI) [Ratio] 22.99 kg/m2 Shanujairon Monzonbere Other [facility] Other 03-28-2022 16:15-0400 Body weight 58.88 kg Shaunjairon Monzonbere Other [facility] Other 03-28-2022 16:15-0400 Diastolic blood pressure 70 mm[Hg] Shaun Aviles Other [facility] Other 03-28-2022 16:15-0400 Respiratory rate 16 /min Shaun Aviles Other [facility] Other 03-28-2022 16:15-0400 SaO2% (BldA) [Mass fraction] 98 % Shaun Aviles Other [facility] Other 03-28-2022 16:15-0400 Systolic blood pressure 122 mm[Hg] Shaun Aviles Other [facility] Other 01-19-2022 14:15-0400 Body height 160.02 cm Shaun Aviles Other [facility] Other 01-19-2022 14:15-0400 Body mass index (BMI) [Ratio] 22.85 kg/m2 Shaun Aviles Other [facility] Other 01-19-2022 14:15-0400 Body weight 58.51 kg Shaun Aviles Other [facility] Other 01-19-2022 14:15-0400 Diastolic blood pressure 80 mm[Hg] Shaun Aviles Other [facility] Other 01-19-2022 14:15-0400 Respiratory rate 16 /min Shaun Aviles Other [facility] Other 01-19-2022 14:15-0400 SaO2% (BldA) [Mass fraction] 95 % Shaun Aviles Other [facility] Other 01-19-2022 14:15-0400 Systolic blood pressure 124 mm[Hg] Shaun Aviles Other [facility] Other 12-15-2021 13:00-0500 Body height 160.02 cm Shaun Aviles Other [facility] Other 12-15-2021 13:00-0500 Body mass index (BMI) [Ratio] 22.49 kg/m2 Shaun Aviles Other [facility] Other 12-15-2021 13:00-0500 Body weight 57.61 kg Shaun Aviles Other [facility] Other 12-15-2021 13:00-0500 Diastolic blood pressure 70 mm[Hg] Shaun Aviles Other [facility] Other 12-15-2021 13:00-0500 Respiratory rate 16 /min Shaun Aviles Other [facility] Other 12-15-2021 13:00-0500 SaO2% (BldA) [Mass fraction] 99 % Shaun Aviles Other [facility] Other 12-15-2021 13:00-0500 Systolic blood pressure 110 mm[Hg] Shaun Aviles Other [facility] Other 11-07-2021 12:00-0500 Body height 160.02 cm Shaun Aviles Other [facility] Other 11-07-2021 12:00-0500 Body mass index (BMI) [Ratio] 22.85 kg/m2 Shaun Aviles Other [facility] Other 11-07-2021 12:00-0500 Body weight 58.51 kg Shaun Aviles Other [facility] Other 11-07-2021 12:00-0500 Diastolic blood pressure 64 mm[Hg] Shaun Aviles Other [facility] Other 11-07-2021 12:00-0500 Respiratory rate 18 /min Shaun Aviles Other [facility] Other 11-07-2021 12:00-0500 SaO2% (BldA) [Mass fraction] 99 % Shaun Aviles Other [facility] Other 11-07-2021 12:00-0500 Systolic blood pressure 112 mm[Hg] Shaun Aviles Other [facility] Other 09-26-2021 13:30-0500 Body height 160.02 cm Shaun Aviles Other [facility] Other 09-26-2021 13:30-0500 Body mass index (BMI) [Ratio] 22.32 kg/m2 Shaun Aviles Other [facility] Other 09-26-2021 13:30-0500 Body weight 57.15 kg Shaun Aviles Other [facility] Other 09-26-2021 13:30-0500 Diastolic blood pressure 66 mm[Hg] Shaun Aviles Other [facility] Other 09-26-2021 13:30-0500 Respiratory rate 16 /min Shaun Aviles Other [facility] Other 09-26-2021 13:30-0500 SaO2% (BldA) [Mass fraction] 99 % Shaun Aviles Other [facility] Other 09-26-2021 13:30-0500 Systolic blood pressure 100 mm[Hg] Shaun Aviles Other [facility] Other Encounters Encounter Date Encounter Type Care Provider Facility Start: 04-15-2024 End: 04-15-2024 ambulatory DO Shaun Aviles Work Phone: [facility] Work Phone: Start: 04-15-2024 End: 04-15-2024 Patient encounter procedure DO Shaun Aviles Work Phone: [facility] Physician [facility] Gastroenterology Work Phone: Start: 01-29-2024 End: 01-29-2024 ambulatory DO Shaun Aviles Work Phone: [facility] Work Phone: Start: 01-29-2024 End: 01-29-2024 Patient encounter procedure DO Shaun Nciolásbere Work Phone: [facility] Family Medicine [facility] Work Phone: Start: 01-22-2024 End: 01-22-2024 ambulatory Shaun Aviles Facility:[facility] Start: 01-22-2024 End: 01-22-2024 ambulatory DO Shaun Aviles Work Phone: [facility] Work Phone: Start: 01-22-2024 End: 01-22-2024 Patient encounter procedure DO Shaun Aviles Work Phone: [facility]Ul[facility] Cn[facility] for Breast Car Start: 12-27-2023 End: 12-27-2023 ambulatory Gail Lawrence Facility:[facility] Start: 12-27-2023 End: 12-27-2023 ambulatory DO Shaun Aviles Work Phone: [facility] Work Phone: Start: 12-27-2023 End: 12-27-2023 Patient encounter procedure DO Shaun Aviles Work Phone: [facility] [place] Work Phone: Start: 10-16-2023 End: 10-16-2023 ambulatory Lj Stanton Other [facility] Other Start: 10-16-2023 Office outpatient vi sit 15 minutes Lj Stanton [facility] Start: 10-16-2023 End: 10-16-2023 Patient encounter procedure DO Sahun Aviles Work Phone: [facility] Work Phone: Start: 08-23-2023 End: 08-23-2023 ambulatory Willie Lambert Other [facility] Other Start: 08-23-2023 Telephone encounter Willie [facility]AL [facility] Start: 08-22-2023 End: 08-22-2023 ambulatory Willie Lambert Facility:[facility] Start: 08-22-2023 End: 08-22-2023 Admission to same day surgery center DO Shaun Aviles Work Phone: [facility]-Digestive Health Work Phone: Start: 08-22-2023 End: 08-22-2023 ambulatory DO Shaun Aviles Work Phone: [facility] Work Phone: Start: 08-15-2023 End: 08-15-2023 ambulatory Lj Stanton Facility:[facility] Start: 08-15-2023 End: 08-15-2023 ambulatory DO Shaun Aviles Work Phone: [facility] Work Phone: Start: 08-15-2023 End: 08-15-2023 Patient encounter procedure DO Shaun Aviles Work Phone: [facility] [place] Work Phone: Start: 07-26-2023 End: 07-26-2023 ambulatory Shaunjairon Aviles Other [facility] Other Start: 07-26-2023 Office outpatient vi sit 25 minutes Shaun Aviles [facility] Start: 07-20-2023 End: 07-20-2023 ambulatory Shaunjairon Aviles Other [facility] Other Start: 07-20-2023 Telephone encounter [facility] Start: 07-17-2023 End: 07-17-2023 ambulatory Shaun Aviles Facility:[facility] Start: 07-17-2023 End: 07-17-2023 ambulatory DO Shaun Aviles Work Phone: [facility] Work Phone: Start: 07-17-2023 End: 07-17-2023 Patient encounter procedure DO Shaun Aviles Work Phone: [facility]-Ultrasound Cntr for Breast Car Start: 07-09-2023 End: 07-09-2023 ambulatory Lj Stanton Other [facility] Other Start: 07-09-2023 Office outpatient ne w 30 minutes Lj Stanton [facility] Gastroenterology Start: 07-05-2023 End: 07-05-2023 ambulatory Shaun Aviles Other [facility] Other Start: 07-05-2023 Telephone encounter Shaun Aviles [facility] Family Medicine [facility] Start: 07-01-2023 End: 07-01-2023 Emergency department patient visit Mirna [place] christie Facility:[facility] Start: 07-01-2023 End: 07-01-2023 Emergency department patient visit [facility] Start: 04-23-2023 (Procedure) Murray Marinelli [facility] Start: 04-23-2023 End: 04-23-2023 ambulatory Rell Marinelli Other [facility] Other Start: 04-05-2023 End: 04-05-2023 ambulatory Rell Marinelli Other [facility] Other Start: 04-05-2023 Office outpatient vi sit 25 minutes Rell Marinelli [facility] Pain Management [facility] [employer] [place] Start: 04-05-2023 Telephone encounter Rell Marinelli [facility] [employer] [facility] Start: 03-06-2023 End: 03-06-2023 ambulatory Shaun Aviles Other [facility] Other Start: 03-06-2023 Office outpatient vi sit 25 minutes Shaun Aviles [facility] Family Medicine [facility] Start: 01-01-2023 End: 01-01-2023 ambulatory DO Shaun Aviles Work Phone: [facility] Work Phone: Start: 01-01-2023 End: 01-01-2023 Patient encounter procedure DO Shaun Aviles Work Phone: [facility] [place] Work Phone: Start: 11-24-2022 End: 11-24-2022 ambulatory DO Shaun Aviles Work Phone: [facility] Work Phone: Start: 11-24-2022 End: 11-24-2022 Patient encounter procedure DO Shaun Aviles Work Phone: [facility]-Center for [facility] Work Phone: Start: 10-20-2022 End: 10-20-2022 ambulatory Shaun Aviles Other [facility] Other Start: 10-20-2022 Telephone encounter Shaun Aviles [facility] Start: 08-21-2022 End: 08-21-2022 ambulatory Shaun Aviles Other Circular Other Start: 08-21-2022 Office outpatient vi sit 15 minutes Shaun Aviles [facility] Start: 08-17-2022 End: 08-17-2022 ambulatory Shaun Aviles Other Circular Other Start: 08-17-2022 Telephone encounter Shaun Aviles [facility] Start: 07-18-2022 End: 07-19-[address] SHAUN AVILES Facility:[facility]1 Start: 07-06-2022 End: 07-06-[address] ILENE MERCADO Facility:[facility]1 Start: 07-02-2022 End: 07-02-[address] SHAUN AVILES Facility:[facility]1 Start: 06-30-2022 End: 06-30-[address] DOCTOR GLASER Facility:[facility]1 Start: 06-29-2022 Encounter for preprocedural laboratory examination DR GHANSHYAM NIETO [facility] Start: 06-27-2022 End: 06-28-[address] DOCTOR GLASER Facility:[facility]1 Start: 06-27-2022 End: 06-28-2022 Encounter for preprocedural laboratory examination DR DOCTOR GLASER Facility:[facility]1 Start: 06-25-2022 Encounter for other preprocedural examination DR GHANSHYAM NIETO [facility] Start: 06-21-2022 End: 06-22-[address] DOCTOR GLASER Facility:[facility]1 Start: 06-21-2022 End: 06-22-2022 Encounter for other preprocedural examination DR DOCTOR GLASER Facility:[facility]1 Start: 06-17-2022 End: 06-18-[address] DOCTOR GLASER Facility:[facility]1 Start: 05-03-2022 End: 05-03-2022 Admission to same day surgery center DO Denys Pearson Work Phone: [facility] Start: 05-01-2022 End: 05-01-2022 ambulatory Shaun Aviles Other Circular Other Start: 05-01-2022 Telephone encounter Shaun Aviles [facility] Start: 04-28-2022 End: 04-28-2022 Emergency department patient visit Shabbir Morales [facility] Start: 04-18-2022 End: 04-18-2022 Patient encounter procedure DO Denys Pearson Work Phone: [facility] Start: 03-30-2022 End: 03-30-2022 ambulatory Shaun Aviles Other Circular Other Start: 03-30-2022 Telephone encounter Shaun Aviles [facility] Start: 03-28-2022 End: 03-28-2022 ambulatory Shaun Aviles Other Circular Other Start: 03-28-2022 Office outpatient vi sit 25 minutes Shaun Aviles [facility] Start: 02-16-2022 End: 02-16-2022 ambulatory Shaun Aviles Other Circular Other Start: 02-16-2022 Telephone encounter Shaun Aviles [facility] Start: 01-19-2022 End: 01-19-2022 ambulatory Shaun Aviles Other Circular Other Start: 01-19-2022 Office outpatient vi sit 25 minutes Shaun Aviles [facility] Start: 01-19-2022 Telephone encounter Shaun Aviles [facility] Start: 01-13-[address] GHANSHYAM NIETO Facility :[facility]1 Start: 12-28-2021 End: 12-29-[address] GHANSHYAM NIETO [employer] Other Start: 12-28-2021 Telephone encounter Shaun Aviles [facility] Start: 12-15-2021 End: 12-15-2021 ambulatory Shaun Aviles Other Circular Other Start: 12-15-2021 Office outpatient vi sit 25 minutes Shaun Aviles [facility] Start: 11-28-2021 End: 11-28-2021 ambulatory Shaun Aviles Other Circular Other Start: 11-28-2021 Telephone encounter Shaun Aviles [facility] Start: 11-24-2021 End: 11-24-2021 ambulatory Shaun Aviles Other Circular Other Start: 11-24-2021 Telephone encounter Shaun Aviles [facility] Start: 11-23-2021 End: 11-23-[address] DOCTOR GLASER Facility:[facility]1 Start: 11-15-2021 End: 11-16-[address] SHAUN AVILES Facility:[facility]1 Start: 11-07-2021 End: 11-07-2021 ambulatory Shaun Aviles Other Circular Other Start: 11-07-2021 Office outpatient vi sit 25 minutes Shaun Aviles [facility] Start: 09-28-2021 End: 09-29-[address] SHAUN AVILES Facility: Start: 09-26-2021 End: 09-26-2021 ambulatory Shaun Aviles Other [facility] Other Start: 09-26-2021 Office outpatient vi sit 25 minutes Shaun Aviles [facility] Start: 11-29-2015 End: 11-29-2015 Patient encounter procedure UNKNOWN PROVIDER Facility:[facility] Procedures Date Procedure Procedure Detail Performing Clinician Start: 01-22-2024 Ultrasonography of l eft breast DO Shaun Aviles Work Phone: Start: 08-22-2023 Colonoscopy DO Shaun Dave rivera Work Phone: Start: 08-15-2023 Stool culture for bacteria DO Shaun Aviles Work Phone: Start: 07-17-2023 Ultrasonography of l eft breast DO Shaun Aviles Work Phone: Start: 01-01-2023 Radiography of sacrococcygeal spine DO Shaun Aviles Work Phone: Start: 01-01-2023 X-ray of lumbar spin e, four or more views DO Shaun Traci Work Phone: Start: 11-24-2022 Ultrasonography of l eft breast DO Shaun Aviles Work Phone: Start: 05-03-2022 Core needle biopsy o f breast using ultrasound guidance DO Denys Pearson Work Phone: Start: 04-18-2022 Ultrasonography of l eft breast DO Denys Pearson Work Phone: Plan of Treatment Date Care Activity Detail Author Start: 08-22-[address] [facility] Start: 08-15-2023 Ova and Parasite Concentrate Exam Ova and Parasite Concentrate Exam [facility] Bacteria identified in Stool by Culture [facility] Calprotectin [Mass/m ass] in Stool [facility] Comprehensive metabo lic 1999 panel - Serum or Plasma [facility] Elastase.pancreatic [Mass/mass] in Stool [facility] Endomysial antibody IgA level [facility] Gliadin peptide IgA Ab [Units/volume] in Serum [facility] Gliadin peptide IgG Ab [Units/volume] in Serum [facility] HIV 1+2 Ab+HIV1 p24 Ag [Presence] in Serum or Plasma by Immunoassay [facility] IgA [Mass/volume] in Serum or Plasma [facility] Ova and parasites identified in Unspecified specimen by Light microscopy [facility] Patient Education Hemorrhoids (DC) [facility] Work Phone: Tissue transglutamin ase IgA Ab [Units/volume] in Serum [facility] Tissue transglutamin ase IgG Ab [Units/volume] in Serum [facility] Immunizations Immunization Date Immunization Notes Care Provider Fa cility NEGATED: Highlighted row has not occurred!09-17-2019 influenza, seasonal, injectable Patient Objection Shaun Aviles Other [facility] Other Payers Date Payer Category Payer Medicaid [id number] 0a [id number] 2014 Medicaid [id number] 1997 Unknown [id number] 2.16.84 [id number] 1997 Unknown [id number] 2.16.84 0.1.974096.3.579.2.593 1997 Unknown [id number] 2.16.84 0.1.075058.3.579.2.593 1997 Unknown [id number] 2.16.84 0.1.114996.3.579.2.593 1997 Unknown [id number] 2.16.84 0.1.740737.3.579.2.593 1997 Unknown [id number] 2.16.84 0.1.048266.3.579.2.593 1997 Unknown [id number] 2.16.84 0.1.971422.3.579.2.593 1997 Unknown [id number] 2.16.84 0.1.190711.3.579.2.593 1997 Unknown [id number] 2.16.84 0.1.707871.3.579.2.593 1997 Unknown [id number] 2.16.84 0.1.108929.3.579.2.593 1997 Unknown [id number] 2.16.84 0.1.282845.3.579.2.593 1997 Unknown [id number] 2.16.84 0.1.942863.3.579.2.593 1997 Unknown [id number] 2.16.84 0.1.334433.3.579.2.593 1997 Unknown [id number] 2.16.84 0.1.084422.3.579.2.593 1997 Unknown [id number] 2.16.8 40.1.143539.3.579.2.727 1959 Self-pay [id number] 1957 Unknown [id number] 2.1 [id number] Unknown [id number] 2.16.8 40.1.962736.3.579.2.531 Unknown [id number] 2.16.8 40.1.728217.3.579.2.531 Unknown [id number] 2.16.8 40.1.557171.3.579.2.531 Unknown [id number] 2.16.8 40.1.284473.3.579.2.531 Unknown [id number] 2.16.8 40.1.682277.3.579.2.531 Social History Date Type Detail Facility Unknown if ever smoked Circular Other Sex Assigned At [facility] Other Tobacco Vaping [facility] Comment on above: vapes daily Start: 1995 Sex Assigned At Female F [facility] Tobacco smoking status No Smokin g Status Entered [facility] Start: 08-22-2023 Tobacco smoking stat [facility] Smoker (finding) [facility] Start: 12-27-2023 Tobacco smoking stat [facility] Never smoked tobacco (finding) [facility] Goals Date Patient Goal Desired Activity /State Functional Status Date Assessment Result Facility 07-01-2023 Functional Status N/A [facility] 04-28-2022 Functional Status N/A [facility] Clinical Notes 09-26-2021 to 10-16-2023 Note Date & Type Note Facility 10-16-2023 Evaluation note Encounter Date Diagnosis Assessment Notes Oct, Abdominal pain (ICD-10 - R10.9) The patient has occasional complaints of abdominal pain. She states that this is not enough to interrupt her daily life. She has been watching her diet & has eliminated fatty foods. This has helped. Oct, Rectal bleeding (ICD-10 - K62.5) no current complaints of rectal bleeding Oct, Alternating constipation and diarrhea (ICD-10 - R19.8) The patien thas unpredictable episodes of frequent bowel movements. She can add Dicyclomine 20 tid. Return visit here in 6 months for follow up. Oct, Heartburn (ICD-10 - R12) The patient has intermittent heartburn. This is dietary related. She does not want to start maintenance medication. She can use Pepcid OTC as needed. [facility] Other 11-15-[address] [facility]* Encounter Date Diagnosis Assessment Notes Treatment Notes Treatment Clinical Notes Jul, Abdominal pain (ICD-10 - R10.9) Pt states she has started to notice a multitude of foods that aggravate her abdominal pain. She is doing her best to avoid these foods. She does report that red meat is tolerable for her. I encouraged her to continue with gastroenterology, and to have her colonoscopy done as scheduled. Jul, Rectal bleeding (ICD-10 - K62.5) Pt is to continue to follow with gastro and we will continue to monitor. Jul, Alternating constipation and diarrhea (ICD-10 - R19.8) Pt is to continue with gastro, and we will continue to monitor. Jul, Coccyx pain (ICD-10 - M53.3) Jul, Schizophrenia, unspecified type (ICD-10 - F20.9) Pt is to continue with the above medication and with Dr. Storey, and we will continue to monitor. 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 I did recommend she discuss this with Dr. Nieto, with whom she follows for gynocology. I did order a repeat ultrasound to re-evaluate this in 6 months. Jul, Anxiety about health (ICD-10 - F41.8) Pt does take the above medication very sparingly. I encouraged her to only use these when she feels she really needs them. A refill was provided for them today after an OAR[facility] report was generated and reviewed. She is to continue to follow with Dr. Storey. We will continue to monitor. Circular Other 10-02-2023 Evaluation note* Encounter Date Diagnosis Assessment Notes Treatment Notes Treatment Clinical Notes Jul, Abdominal pain (ICD-10 - R10.9) Jul, Rectal bleeding (ICD-10 - K62.5) PATIENT WAS HAVING DAILY RECTAL BLEEDING. LAST EPISODE WAS LAST SUNDAY. Jul, Alternating constipation and diarrhea (ICD-10 - R19.8) PATIENT STATES THAT SHE CAN GO 2-3 DAYS WITH NO BOWELS MOVEMENTS. ALTERNATING CONSTIPATION AND DIARRHEA HAS BEEN ON GOING FOR YEARS. WILL PROCEED WITH STOOL STUDIES AND COLONOSCOPY AT THIS TIME. Circular Other 09-24-2023 Hospital Discharge instructions Patient Education 07/01/2023 20:46:37 Pelvic Pain, Female, [id number] Pelvic Pain, Female Pelvic pain is pain in your lower belly (abdomen), below your belly button and between your hips. The pain may: Start all of a sudden (be acute). Keep coming back (be recurring). Last a long time (become chronic). Pelvic pain that lasts longer than 6 months is called chronic pelvic pain. There are many causes of pelvic pain. Sometimes the cause of pelvic pain is not known. Follow these instructions at home: Take tjqn-[id number] and prescription medicines only as told by your doctor. Rest as told by your doctor. Do not have sex if it hurts. Keep a journal of your pelvic pain. Write down: ?When the pain started. ?Where the pain is located. ?What seems to make the pain better or worse, such as food or your monthly period (menstrual cycle). ?Any symptoms you have along with the pain. Keep all follow-up visits. Contact a doctor if: Medicine does not help your pain, or your pain comes back. You have new symptoms. You have unusual discharge or bleeding from your vagina. You have a fever or chills. You are having trouble pooping (constipation). You have blood in your pee (urine) or poop (stool). Your pee smells bad. You feel weak or light-headed. Get help right away if: You have sudden pain that is very bad. You have very bad pain and also have any of these symptoms: ?A fever. ?Feeling like you may vomit (nauseous). ?Vomiting. ?Being very sweaty. You faint. These symptoms may be an emergency. Get help right away. Call your local emergency services (911 int [place] Do not wait to see if the symptoms will go away. Do not drive yourself to the hospital. Summary Pelvic pain is pain in your lower belly (abdomen), below your belly button and between your hips. There are many causes of pelvic pain. Keep a journal of your pelvic pain. This information is not intended to replace advice given to you by your health care provider. Make sure you discuss any questions you have with your health care provider. Document Revised: 01/31/2022 Document Reviewed: 01/31/2022 [employer] Patient Education 2022 [employer]. Follow Up Care 07/01/2023 17:51:29 With:Ghanshyam NIETO Address: [address] [place] [address]- Business (1) When:07/04/2023 20:46:14 Comments:Call the office first thing Sunday With:SHWETA GONZALEZ Address:Unknown When:Within 3 Day(s) [facility]09-24-2023 Evaluation + Plan noteExtracted from: Title:ED Note Author:Kemi Castillo, Mirna Oshea te:07/01/23 1. Pelvic pain (R10.2: Pelvi c and perineal pain) Orders: ketorolac, 30 mg = 1 mL, Injection, IV Push, Once, Stop date 07/01/23 18:18:00 EDT, STAT, Start date 07/01/23 18:18:00 EDT, 07/01/23 18:18:00 EDT ondansetron, 4 mg = 2 mL, Injection, IV Push, Once, Stop date 07/01/23 18:29:00 EDT, STAT, Start date 07/01/23 18:29:00 EDT, 07/01/23 18:29:00 EDT Basic Metabolic Panel CBC w/ Auto Diff Rapid COVID Antigen ([facility]) U Beta Hcg Qual UA With Cult Reflex Urine Culture US Pelvis Non-OB Complete Addendum by Kendrick Zacarias MD July 01, 2023 20:41:03 EDT The patient's pelvic ultrasound was interpreted as negative for pathology. Good flow was noted in both ovaries. The patient's laboratory studies are unremarkable. I talked with the patient shortly after 8:40 PM. She is resting more comfortably but still requires something for pain. She states that her tubes were removed surgically about [address] Nieto. Patient states that the Percocet which she took several days ago was helpful. On physical exam the abdomen is flat soft tender to deep palpation is still in the left lower quadrant pelvis but no guarding or rebound no masses. I explained to the patient that no specific etiology for the pain has been determined. There is certainly a suspicion that this may be pelvic in origin. Dr. Nieto is on-call for the ER. Patient is still taking her antibiotics as prescribed for colitis. We will provide pain control tonight. She will contact Dr. Nieto's office first thing in the morning for follow-up. At this point pelvic pain of unknown etiology. Possibility of colitis is still considered. Diagnostic Tests Pending * Urine Culture 07/01/23 [facility]05-30-2023 Evaluation note* Encounter Date Diagnosis Assessment Notes Treatment Notes Treatment Clinical Notes February, Coccyx pain (ICD-10 - M53.3) XR reviewed with patient. Noted negative lumbosacral spine, sacrum and coccyx noted no acute bony injury. Since the patient continues with the pain, I do recommend a referral to pain management for possible injections. Patient is agreeabled. Referral initiated. February, Mass of left breast, unspecified quadrant (ICD-10 - N63.20) I did review consult note from Dr. Lemons. I do recommend we continue to check left breast ultrasound every 6 months. Order provided. February, Acne, unspecified acne type (ICD-10 - L70.9) Patient is interested in seeing a structural steel erection supervisor for acne, I am agreeable. Referral initiated. Circ[facility] Other 11-14-2022 Evaluation note* Encounter Date Diagnosis Assessment Notes Treatment Notes Treatment Clinical Notes Aug, Anxiety about health (ICD-10 - F41.8) Oarrs report ran and reviewed with the patient today. She has had several gynecological procedures and breast biopsies that cause her signifcant anxiety. All results have been benign. We discussed using xanax very very sparingly and this will be provided to her with the understanding of all risks involved with prescribing a scheduled benzodiazapine. She verbalized understanding. Circ[facility] Other 09-23-2022 NoteOPERATIVE NOTE OPERATION DATE: 06/30/2022 PROCEDURE: Khalida endometrial ablation hysteroscopy with bilateral laparoscopic salpingectomy. PREOPERATIVE DIAGNOSIS: Menorrhagia, desire permanent sterilization, multiparity. POSTOPERATIVE DIAGNOSIS: Menorrhagia, desire permanent sterilization, multiparity. ANESTHESIA: General. SURGEON: Ghanshyam Nieto D.O. ELECTRICIAN SUPERVISOR AIRPLANE: DANICA Feng URINE OUTPUT: Yellow and clear. SPECIMEN: Tubes. BLOOD LOSS: 5 mL. FINDING: Boggy appearing uterus. Normal appearing ovaries and tubes. Normal appearing appendix. PROCEDURE: The patient was taken back to the OR where she was prepped and draped in the normal sterile fashion after being placed in the dorsal lithotomy position, after being placed under general anesthesia without difficulty. a weighted speculum was then placed into the vagina. The anterior lip was grasped with a single tooth tenaculum. The patient was then sounded to approximately 9 cm. The patient was gently sounded using Hegar dilators and the hysteroscope was passed through the cervix into the uterus where both ostia were seen. No gross evidence of polyps, fibroids or malignancy. The cervical length was noted to be 4 cm. The Khalida ablation apparatus was set to approximately 5 cm in length. This was placed in through the cervix and into the uterus. After the seal was tested, at that time the total ablation of 120 seconds was performed with the Khalida without difficulty. All instruments were removed from the vagina. A wet sponge stick was placed into the patient's vagina. Attention was then turned to the patient's abdomen, where a scalpel was used to make a small infraumbilical incision. The S retractors were then used to dissect the underlying layers until the fascia could be seen. The fascia was then grasped with Skye clamps and tented up. A knife was then used to make a small incision to the fascia. The muscle was identified, at that time two sutures of #0 Vicryl on a GI needle was then used and placed through the fascia. The peritoneum was then identified and entered bluntly. The 10-4 Dorie was then placed into the patient's abdomen. This was confirmed with direct visualization of the bowel, using the laparoscope. The patient's abdomen was then insufflated using approximately 4 liters of CO2 gas. Survey of the patient's abdomen demonstrated normal appearing ovaries, uterus and tubes. A second and third lateral ports, which was 7-8 in size and 5 mm in size, was then placed laterally after incision was made in the skin under direct visualization. The patient's tube on the patient's right side was identified. The tube was then tented up using a grasper. The LigaSure was used to transect and coagulate the mesosalpinx from the fimbriated end to the insertion at the uterus, the tube was amputated and removed in its entirety. Excellent hemostasis was noted. This was performed on the contralateral side as well. The lateral ports were then moved under direct visualization with excellent hemostasis. The abdomen was desufflated. All instruments were removed from the patient's abdomen. The fascia was closed using the #0 Vicryl on GI needle. The skin was closed using 4- 0 Vicryl subcuticularly. All instruments were removed from the patient's vagina as well. The patient was taken out of the dorsal lithotomy position and placed in the supine position and taken to recovery in stable condition. Sponge, lap and needle counts were correct x2.[id number] Discharge instructions Patient Education 04/28/2022 16:54:37 Supporting Someone With Anxiety Supporting Someone With Anxiety Anxiety disorders are mental health conditions that cause overwhelming feelings of nervousness or worry. These feelings interfere with daily activities and relationships. Anxiety disorders include: Generalized anxiety disorder (GABBY). Social anxiety. Post-traumatic stress disorder (PTSD). When a person has an anxiety disorder, his or her condition can affect others around him or her, such as friends and family members. Friends and family can help by offering support and understanding. What do I need to know about this condition? Anxiety is the mental and physical experience of nervousness or worry that you might feel when you think about a stressful event. Occasional anxiety is normal, but a person with an anxiety disorder becomes preoccupied with this worry. He or she may know that the anxiety is not logical, but knowing this does not relieve the discomfort that he or she feels. Anxiety disorders cause a great deal of distress and prevent someone from having a normal daily life. Someone with an anxiety disorder may: Experience anxiety that: ?May or may not have a specific trigger. ?Lasts for long periods of time. ?Causes physical problems over time. ?Is far more intense than normal anticipation. ?Occurs at unpredictable times. Feel restless or edgy. Get fatigued easily. Have trouble focusing. Have muscle tension. Have trouble falling asleep or staying asleep. Be irritable and occasionally have sudden expressions of strong feelings (outbursts). Have worries that do not make sense to you. What do I need to know about the treatment options? Anxiety disorders are generally very treatable by mental health providers such as psychologists, psychiatrists, and clinical social workers. Treatment may include one or more of the following: Psychotherapy, also called talk therapy or counseling. Types of psychotherapy that are used to treat anxiety include: ?Cognitive behavioral therapy (CBT). This type of therapy teaches a person how to recognize unhealthy feelings, thoughts, and behaviors, and how to replace those feelings with positive thoughts and actions. ?Behavior therapy that trains a person to relax and self-soothe. This also involves gradually exposing the person to the cause of the anxiety (progressive exposure therapy). ?Biofeedback. This type of therapy focuses on trying to control certain body functions, like heart rate, to lessen the physical impact of anxiety. ?Mindfulness-based stress reduction training. This uses education, meditation, and yoga to help a person stay focused on the present instead of living in the past or worrying about the future. ?Acceptance and commitment therapy (ACT). This helps a person to focus on acceptance, rather than trying to control every situation. ?Family therapy. This treatment helps family members to communicate and deal with conflict in healthy ways. Medicine to treat anxiety and help to control certain emotions and behaviors. Mind-body programs. These programs encourage the person with anxiety to be involved in his or her treatment and feel empowered. Mind-body programs may include mindfulness-based stress reduction training, yoga, or milton chi. How can I create a safe environment? For certain types of anxiety, such as PTSD, you may want to: ?Remove alcohol and prescription medicines from your loved one's home, or limit the amount of thesesubstances in the home. This can help to prevent your loved one from abusing alcohol and prescription medicines. ?Remove or lock up guns and other weapons. If you do not have a safe place to keep a gun, local [facility] may store a gun for you. Make a written crisis plan. Include important phone numbers, such as the local crisis intervention team. Make sure that: ?The person with anxiety knows about this plan and agrees with it. ?Everyone who has regular contact with the person knows about the plan and knows what to do in an emergency. ?The written plan is easily accessible and can be quickly put into action. How should I care for myself? It is important to find ways to care for your body, mind, and well-being while supporting someone with anxiety. Try to maintain your normal routines. This can help you remember that your life is about more than your loved one's condition. Understand what your limits are. Say no to requests or events that lead to a schedule that is toobusy. Make time for activities that help you relax, and try to not feel guilty about taking time for yourself. Spend time with friends and family. Consider trying meditation and deep breathing exercises to lower your stress. Attend some mind-bodyclasses by yourself or with your loved one. Get plenty of sleep. Exercise, even if it is just taking a short walk a few times a week. If you are struggling emotionally with guilt, fear, or anger, consider working with a therapist. What are some signs that the condition is getting worse? Signs that your loved one's condition may be getting worse include: Dramatic mood swings. Staying away from activities that he or she used to enjoy. Drinking more alcohol than normal. Either seeming tearful or seeming to lack emotion. Talking about not feeling right. Staying away from others (isolating himself or herself). Where to find support Talk about the condition Good communication is the marquez to supporting your friend or family member. Here are a few things to keep in mind: Be careful about too much prodding. Try not to overdo reminders to an adult friend or family memberabout things like taking medicines. Ask how your loved one prefers that you help. Ask questions and then listen to your loved one's response. Be available if your friend or family member wants to talk, but give your loved one space if he or she does not feel like talking. Never ignore comments about suicide, and do not try to avoid the subject of suicide. Talking about suicide will not make your loved one want to act on it. You or your loved one can reach out 24 hoursa day to get free, private support (on the phone or a live online chat) from a suicide crisis helpline, such as the National Suicide Prevention Lifeline at . Be encouraging and offer emotional support. This can help to lower stress. Even saying something simple to comfort your loved one may help. If your loved one is open to it, go with him or her to visits with a counselor or health care provider. Get suggestions directly from your loved one's care providers about when to get help if you areconcerned about behavior changes. Privacy laws limit how much a person's health care provider can share with you without your loved one's permission, but if you feel that a situation is an emergency,do not wait to call a health care provider or emergency services. Find support and resources Consider joining self-help and support groups, not only for your friend or family member, but also for yourself. People in these peer and family support groups understand what you and your loved one are going through. They can help you feel a sense of hope and connect you with local resources to help you learn more. ?You may also consider family therapy. General support Make an effort to learn all you can about your loved one's form of anxiety. Include your loved one in activities. Invite him or her to go for walks and outings. Help your loved one follow his or her treatment plan as directed by health care providers. This could mean driving him or her to therapy sessions or suggesting ways to cope with stress. Remember that your support really matters. Social support is a huge benefit for someone who is coping with anxiety. Where to find more information A health care provider may be able to recommend mental health resources that are available online or over the phone. You could start with: Government sites such as the Substance Abuse and Mental Health Services Administration (SAMHSA): www.samhsa.gov National mental health organizations such as the National [place] on Mental Illness (AVRIL): www.avril.org Get help right away if: Your loved one expresses thoughts about harming himself or herself or others. Your loved one's behavior becomes hard to predict (erratic). Your loved one shows behavior that does not make sense with the current time, place, or circumstances. These behaviors may include seeing, feeling, tasting, or hearing things that are not real (hallucinations) or having flashbacks. If you ever feel like your loved one may hurt himself or herself or others, or may have thoughts about taking his or her own life, get help right away. You can go to your nearest emergency departmentor call: Your local emergency services (911 in the [place] A suicide crisis helpline, such as the National Suicide Prevention Lifeline at . Thisis open 24 hours a day. Summary People with anxiety disorders experience overwhelming feelings of nervousness or worry. Friends andfamily can help by offering support and understanding. Anxiety disorders are generally very treatable by mental health providers. They can be treated withpsychotherapy (also known as talk therapy), behavior therapy, medicine, and mind-body programs. Be compassionate and listen to your loved one. Be available if your friend or family member wants to talk, but give your loved one space if he or she does not feel like talking. Find ways to care for your own body, mind, and well-being while supporting someone with anxiety. Try to maintain your normal routines and make time to do things that you enjoy. This information is not intended to replace advice given to you by your health care provider. Make sure you discuss any questions you have with your health care provider. Document Released: 02/05/2018 Document Revised: 01/15/2020 Document Reviewed: 02/05/2018 [employer] Patient Education 2020 [place] [employer]. 04/28/2022 16:54:37 Managing Anxiety, Adult Managing Anxiety, Adult After being diagnosed with an anxiety disorder, you may be relieved to know why you have felt or behaved a certain way. You may also feel overwhelmed about the treatment ahead and what it will mean for your life. With care and support, you can manage this condition and recover from it. How to manage lifestyle changes Managing stress and anxiety Stress is your body's reaction to life changes and events, both good and bad. Most stress will lastjust a few hours, but stress can be ongoing and can lead to more than just stress. Although stress can play a major role in anxiety, it is not the same as anxiety. Stress is usually caused by something external, such as a deadline, test, or competition. Stress normally passes after the triggering event has ended. Anxiety is caused by something internal, such as imagining a terrible outcome or worrying that something will go wrong that will devastate you. Anxiety often does not go away even after the triggering event is over, and it can become long-term (chronic) worry. It is important to understand the differences between stress and anxiety and to manage your stress effectively so that it does not lead josias anxious response. Talk with your health care provider or a counselor to learn more about reducing anxiety and stress.He or she may suggest tension reduction techniques, such as: Music therapy. This can include creating or listening to music that you enjoy and that inspires you. Mindfulness-based meditation. This involves being aware of your normal breaths while not trying to control your breathing. It can be done while sitting or walking. Centering prayer. This involves focusing on a word, phrase, or sacred image that means something toyou and brings you peace. Deep breathing. To do this, expand your stomach and inhale slowly through your nose. Hold your breath for 3 5 seconds. Then exhale slowly, letting your stomach muscles relax. Self-talk. This involves identifying thought patterns that lead to anxiety reactions and changing those patterns. Muscle relaxation. This involves tensing muscles and then relaxing them. Choose a tension reduction technique that suits your lifestyle and personality. These techniques take time and practice. Set aside 5 15 minutes a day to do them. Therapists can offer counseling and training in these techniques. The training to help with anxiety may be covered by some insurance plans. Other things you can do to manage stress and anxiety include: Keeping a stress/anxiety diary. This can help you learn what triggers your reaction and then learn ways to manage your response. Thinking about how you react to certain situations. You may not be able to control everything, but you can control your response. Making time for activities that help you relax and not feeling guilty about spending your time in this way. Visual imagery and yoga can help you stay calm and relax. Medicines Medicines can help ease symptoms. Medicines for anxiety include: Anti-anxiety drugs. Antidepressants. Medicines are often used as a primary treatment for anxiety disorder. Medicines will be prescribed by a health care provider. When used together, medicines, psychotherapy, and tension reduction techniques may be the most effective treatment. Relationships Relationships can play a big part in helping you recover. Try to spend more time connecting with trusted friends and family members. Consider going to couples counseling, taking family education classes, or going to family therapy. Therapy can help you and others better understand your condition. How to recognize changes in your anxiety Everyone responds differently to treatment for anxiety. Recovery from anxiety happens when symptomsdecrease and stop interfering with your daily activities at home or work. This may mean that you will start to: Have better concentration and focus. Worry will interfere less in your daily thinking. Sleep better. Be less irritable. Have more energy. Have improved memory. It is important to recognize when your condition is getting worse. Contact your health care provider if your symptoms interfere with home or work and you feel like your condition is not improving. Follow these instructions at home: Activity Exercise. Most adults should do the following: ?Exercise for at least 150 minutes each week. The exercise should increase your heart rate and makeyou sweat (moderate-intensity exercise). ?Strengthening exercises at least twice a week. Get the right amount and quality of sleep. Most adults need 7 9 hours of sleep each night. Lifestyle Eat a healthy diet that includes plenty of vegetables, fruits, whole grains, low-fat dairy products, and lean protein. Do not eat a lot of foods that are high in solid fats, added sugars, or salt. Make choices that simplify your life. Do not use any products that contain nicotine or tobacco, such as cigarettes, e- cigarettes, and chewing tobacco. If you need help quitting, ask your health care provider. Avoid caffeine, alcohol, and certain flwj-odg-yxdpxcf cold medicines. These may make you feel worse. Ask your pharmacist which medicines to avoid. General instructions Take rleq-zba-zqfivtw and prescription medicines only as told by your health care provider. Keep all follow-up visits as told by your health care provider. This is important. Where to find support You can get help and support from these sources: Self-help groups. Online and community organizations. A trusted spiritual leader. Couples counseling. Family education classes. Family therapy. Where to find more information You may find that joining a support group helps you deal with your anxiety. The following sources can help you locate counselors or support groups near you: Mental Health [place]: www.mentalhealthamerica.net Anxiety and Depression Association of [place] (ADAA): www.adaa.org National [place] on Mental Illness (AVRIL): www.avril.org Contact a health care provider if you: Have a hard time staying focused or finishing daily tasks. Spend many hours a day feeling worried about everyday life. Become exhausted by worry. Start to have headaches, feel tense, or have nausea. Urinate more than normal. Have diarrhea. Get help right away if you have: A racing heart and shortness of breath. Thoughts of hurting yourself or others. If you ever feel like you may hurt yourself or others, or have thoughts about taking your own life,get help right away. You can go to your nearest emergency department or call: Your local emergency services (911 in the [place] A suicide crisis helpline, such as the National Suicide Prevention Lifeline at . Thisis open 24 hours a day. Summary Taking steps to learn and use tension reduction techniques can help calm you and help prevent triggering an anxiety reaction. When used together, medicines, psychotherapy, and tension reduction techniques may be the most effective treatment. Family, friends, and partners can play a big part in helping you recover from an anxiety disorder. This information is not intended to replace advice given to you by your health care provider. Make sure you discuss any questions you have with your health care provider. Document Released: 09/18/2017 Document Revised: 02/24/2020 Document Reviewed: 02/24/2020 [employer] Patient Education 2019 [place] [employer]. Follow Up Care 04/28/2022 16:03:48 With:SHWETA GONZALEZ Address:Unknown When:05/01/2022 16:39:14 Comments:Follow-up with your primary care provider in 3 to 5 days. If symptoms worsen, do not improve, or new symptoms arise please report back to emergency department for further evaluation. Continue to keepyour appointment with your psychiatrist on Sunday as well. [facility]07-22-2022 Evaluation + Plan noteExtracted from: Title:ED Note Author:Gamaliel Amos PA-C te:04/28/22 Anxiety (F41.9: Anxiety diso rder, unspecified) Orders: alprazolam, 0.5 mg = 1 tab(s), Oral, TID, PRN for anxiety, X 3 day(s), # 12 tab(s), Refills(s) 0, Pharmacy: [id number], 160, cm, 04/28/22 16:08:00 EDT, Height/Length Dosing, 63, kg, 04/28/22 16:08:00 EDT, Weight Dosing [facility]06-21-2022 Evaluation note* Encounter Date Diagnosis Assessment Notes Treatment Notes Treatment Clinical Notes Mar, Mass of left breast, unspecified quadrant (ICD-10 - N63.20) Advised patient to keep appointment with . Mar, Neck pain (ICD-10 - M54.2) OMT provided in the office. I did offer a toradol injection in the office that the patient did accept. I also prescribed the above pain reliever for pain to take as needed for pain. Mar, Left hand paresthesia (ICD-10 - R20.2) OMT provided in the office. Mar, Insomnia, unspecified type (ICD-10 - G47.00) Patient is to continue to follow with the psychiatrist as scheduled. Mar, Somatic dysfunction of spine, cervical (ICD-10 - M99.01) Mar, Somatic dysfunction of spine, thoracic (ICD-10 - M99.02) Mar, Somatic dysfunction of rib (ICD-10 - M99.08) Circular Other 04-14-2022 Evaluation note* Encounter Date Diagnosis Assessment Notes Treatment Notes Treatment Clinical Notes Jan, Anxiety (ICD-10 - F41.9) After discussion with the patient, she consulted with Dr. Cosme and was started on Abilify which caused her to 'black out' due to a lower blood pressure reading and insomnia. She admits she may need her son's father to take him for a while for her to stabilize herself. The patient does admit she is wanting to admit herself to a psych unit soon as she is having visual and auditory hallucinations that is very bothersome and disrupting her daily life. She is not able to see Dr. Cosme until April which she and I do believe is too long. The patient is not suicidal and is wanting help therefore advised her I will have my staff call and try to get ahold of Dr. Cosme's office to see about getting her in sooner. She has failed on the Abilify due to tremendous side effects and is not sleeping at night due to her Remeron being decreased to the 15mg. We will see her back in one month and re-evaluate. Jan, Insomnia, unspecified type (ICD-10 - G47.00) The patient admits she had to withdrawl from the Abilify after stopping it abruptly due to tremedous side effects including insomnia and has since been having visual and auditory hallucinations that is keeping her awake at night. She has been having night terrors as well and feels the insomnia is worsening her anxiety significantly. She is currently scheduled 04/[address] Cosme and is unable to get in sooner. I advised her I will call their office to try to get her in sooner as she does like him and would like to continue seeing him but needs to be seen sooner. Jan, Mass of upper outer quadrant of left breast (ICD-10 - N63.21) The patient has been following with Dr. Nieto and was encouraged to follow with him and the specialist as scheduled. [facility]ular Other 04-14-2022 Evaluation note* Encounter Date Diagnosis Assessment Notes Treatment Notes Treatment Clinical Notes Jan, Anxiety with depression (ICD-10 - F41.8) Jan, Borderline personality disorder (ICD-10 - F60.3) Jan, PTSD (post-traumatic stress disorder) (ICD-10 - F43.10) Circular Other 03-10-2022 Evaluation note* Encounter Date Diagnosis Assessment Notes Treatment Notes Treatment Clinical Notes Dec, Anxiety (ICD-10 - F41.9) Patient is very anxious regarding health and personal matters in her life. Patient has been having frequent panic attacks regarding her health. Patient will be seeing a psychiatrist on 12/27. Refill provided Dec, Rib pain on right side (ICD-10 - R07.81) Reviewed x-ray with patient, this is normal. Patient admits that pain has improved with changing positions Dec, Mass of left breast, unspecified quadrant (ICD-10 - N63.20) Reviewed mammogram and ultrasound with patient. This does indicate 3 breast masses, two which resulted in enlarged lymph nodes. Due to patient being symptomatic, patient will be referred to Dr. Pearson for further evaluation. Patient would like to move forward with a biopsy to rule out any further diagnosis. Dec, Nipple discharge (ICD-10 - N64.52) Patient continues to have nipple discharge. Denies any further blood discharge. Dec, Abnormal mammogram (ICD-10 - R92.8) Dec, History of Clostridium difficile infection (ICD-10 - Z86.19) Patient did report to the ER for fever and muscle aches. Patient had not been on antibiotics prior to this diagnosis. Patient was prescribed Flagyl. Patient feels stools are normal, as they were prior. Circular Other 02-09-2022 History general Narrative - Reported* Type Description Date Medical History anxiety and depression Medical History bipolar disorder Medical History 11/16/21 abnormal mammogram Surgical History T&A 2015? Surgical History bladder stretched 2014 Surgical History Natural childbirth 2018 Hospitalization History see above Hospitalization History psychiatric 3-day stay 2 016 Hospitalization History Childbirth 2018 Circular Other 02-09-2022 History general Narrative - Reported* Type Description Date Medical History anxiety and depression Medical History bipolar disorder Medical History 11/16/21 abnormal mammogram Surgical History T&A 2015? Surgical History bladder stretched 2014 Surgical History Natural childbirth 2018 Surgical History Tubal ligation/ ablation 06/2022 Hospitalization History see above Hospitalization History psychiatric 3-day stay 2 016 Hospitalization History Childbirth 2018 Circular Other 01-31-2022 Evaluation note* Encounter Date Diagnosis Assessment Notes Treatment Notes Treatment Clinical Notes Oct, Anxiety (ICD-10 - F41.9) The patient states she has only taken the Xanax three times stating it helps tremendously when she does feel overstimulated or anxious. I am in agreement with providing her with a refill of this advising her to continue to use these very sparingly. She voiced understanding. Medication e-scribed. OAR[facility] report generated and reviewed. We will continue to monitor. Oct, Anxiety with depression (ICD-10 - F41.8) The patient states she has followed with Dr. Liao stating she did not like going as she felt they were waiting for her to say the wrong thing to be able to admit her to the psych chan and used to follow with a couselor at [facility] but has not seen someone in quite some time. Oct, Insomnia, unspecifie d type (ICD-10 - G47.00) The patient admits the above medication was prescribed initially by her previous counselor but has not followed with a counselor in a long time and only uses the Remeron sparingly as she does have her son at times and cannot and will not take them when she has her child. Oct, Hearing voices (ICD-10 - R44.0) The patient had been referred to Psychiatrist Dr. James Cosme in [place] and is currently scheduled 12/27/2021 which I did strongly encourage her to follow through with this appointment. She voiced understanding. Oct, Anemia, unspecified type (ICD-10 - D64.9) Review of blood work with the patient, blood counts are WNL. She was encouraged to obtain an OTC multivitamin and iron supplement. Oct, Weight loss (ICD-10 - R63.4) Oct, Vitamin D deficiency (ICD-10 - E55.9) Review of blood work with the patient, vitamin D levels are low. She was encouraged to obtain an OTC vitamin D supplement. Oct, Screening for cardiovascular condition (ICD-10 - Z13.6) Oct, Rib pain on right side (ICD-10 - R07.81) The patient reports pain the in middle of her Oct, Bloody discharge fro m left nipple (ICD-10 - N64.52) Oct, Breast pain (ICD-10 - N64.4) Circular Other 12-20-2021 Evaluation note* Encounter Date Diagnosis Assessment Notes Treatment Notes Treatment Clinical Notes Sep, Anxiety (ICD-10 - F41.9) The patient admits she has been hesitant to reach out regarding her anxiety due to her past experiences with child services and fear of them taking her 3.5 year old due to her mental health. She reports not having a good experience with [facility]. I did suggest she be further evaluated by a psychiatrist. She is in agreement. Referral initiated. The patient is planning on getting work done prior to a dental procedure soon and states she is very anxious regarding this. I am in agreement with providing a small amount of Xanax for her to use prior to the procedure. She is in agreement. Safety concerns and side effects reviewed with the patient. She voiced understanding. We will continue to monitor. Sep, Insomnia, unspecified type (ICD-10 - G47.00) The patient is currently taking remeron and feels it does help her sleep but will not take it at times due to her having a small child at home as she is a single mom. Encouraged her to continue to take this for now as this is working well for her. We will continue to monitor. Sep, Screening for cardiovascular condition (ICD-10 - Z13.6) Blood work ordered. Sep, Hearing voices (ICD-10 - R44.0) The patient reports hearing sirens, faint music, mens voices, and sometimes hearing someone coming into her house. She feels this may be related to her childhood trauma. She does decline any use of street drugs such as marijuana, cocaine, and methamphetamine. She does admit to very occasional alcohol intake. She has a stable relationship with her boyfriend and states she will rely on him or her grandmother who lives close by if needed for example she will ask if they hear the same things she does. She has never been diagnosed with schizophrenia but does wish to discuss this with a mental health provider. I did advise her that she should be evaluated by a psychiatrist. She is in agreement. We will continue to monitor. Sep, Weight loss (ICD-10 - R63.4) The patient reports an approximate 10lb weight loss that was unintentional. Blood work ordered to rule out abnormalities. Sep, Anemia, unspecified type (ICD-10 - D64.9) The patient was anemic while . Blood work ordered to obtain baseline. Sep, Screening for endocrine disorder (ICD-10 - Z13.29) Blood work ordered. Circular Other Evaluation [facility]No [facility] Other Evaluation noteNo assessment information available [facility] Work Phone: Evaluation [facility] Other Evaluation note* Diagnosis Onset Date Resolution Status Difficulty sleeping acute Fibroadenoma of left breast acute Irritable bowel syndrome with diarrhea acute Schizophrenia acute [facility] Work Phone: Evaluation note* Author Lj Stanton [facility] Authored April 15, 2024 2:20p m Patient is positive for abdo nelson pain, dyspepsia, specifically abdominal pain in the epigastric region as well as appetite suppression [facility] Work Phone: History and physical note Author Willie Lambert [facility] August 22, 2023 9:21am Note Date/Time August 22, 2023 9:21am [facility] [address] [place], [place] [id number] Gastroenterology H&P Signed Patient: Brian Sullivan MR#: [id number] : 1995 Acct:[id number] Age/Sex: 27 / F Adm Date: 3 Loc: Room: Type: [facility] Attending Dr: Willie Lambert MD Copies to: DO Willie Carrion MD~ Date of Service: 08/22/2023 HISTORY & PHYSICAL: Patient's history with special attention to the cardiovascular, pulmonary systems and the current problem was reviewed with the patient immediately prior to the procedure. Present medications and doses reviewed in the EMR. Allergies and pertinent laboratory tests were also reviewedat this time in the EMR. The physical examination, as below, was then performed. Indication, assessment and HPI: 29-year-old female presents for colonoscopy to evaluate history of rectal bleeding, diarrhea, abnormal CT findings showing colitis. Family history of GI malignancy? No PHYSICAL EXAMINATION Mouth and Pharynx : Moist mucus membranes, normal dentition Cardiac: Regular rate, regular rhythm Pulmonary: Clear to auscultation bilaterally, no wheezing Neurological: Alert and oriented x3, no focal deficits noted Abdomen: Abdomen soft, non-tender REVIEW OF SYSTEMS Constitutional: Denies malaise, fevers Cardiovascular: Denies chest pain, palpitations Respiratory: Denies shortness of breath, wheezing Gastrointestinal: Per HPI Genitourinary: Denies dysuria, polyuria Musculoskeletal: Denies joint swelling, joint stiffness Neurological: Denies numbness, tingling Integumentary: Denies rashes, skin lesions Endocrine: Denies fatigue, weight loss Written informed consent obtained from the patient. Risks (including but not limited to perforation, infection, bloating, bleeding, need for emergent surgeryand loss of life), benefits and alternatives explained and questions answered. The patient verbalized understanding. Based on history patient is an appropriate candidate for the procedure. Willie Lambert MD Documented By: Willie Lambert MD 08/22/23919 Signed By: <Electronically signed by Willie Lambert MD> 08/22/23920 [facility] Work Phone: History general Narrative - Reported* Type Description Date Medical History anxiety and depression Medical History bipolar disorder Surgical History T&A 2015? Surgical History bladder stretched 2014 Surgical History Natural childbirth 2018 Hospitalization History see above Hospitalization History psychiatric 3-day stay 2 016 Hospitalization History Childbirth 2018 [facility] Other History general [facility] - [facility]No[facility] Other Hospital course Narrative No data available for this section [facility] Additional Instructions DISCHARGE INSTRUCTIONS FOR COLONOSCOPY WHAT TO EXPECT: - You may feel full, gassy or cramping after your procedure. In some cases, this may be from a few hours to a day. Walking may help relieve the discomfort. - If you have polyp(s) removed you may note some minor bloody discharge after your first bowel movements. - You should begin to recover from anesthesia within 1 hour of the procedure, however may feel groggy for the next 24 hours. DO's AND DON'Ts: - Call your doctor right away if you have a hard abdomen, severe pain, are passing lots of bright red blood or clots. - Call your doctor if you develop any rashes, hives or difficulty breathing. - Let your doctor know if you have not had a bowel movement by 3 days after your procedure. - If you take 81 mg aspirin for your heart it is safe to resume this medication. - If you take other blood thinner medications your doctor will instruct you when these can safely be resumed. - Do NOT drive for 24 hours. - Do NOT operate machinery such as power tools, lawn mowers, snow blowers, sewing machines, etc. for 24 hours. - Avoid alcoholic beverages and drugs for allergies, nerves, or sleep. - Do NOT stay alone. Do NOT leave your child unattended. - Do NOT make important personal or business decisions or sign any legal documents. - Eat solid foods and drink liquids in smaller amounts than usual until normal appetite returns. If you should experience an upset stomach, liquids high in sugar content (soda, Domingo-Aid, non-acid juices) are recommended. - You can resume normal activities tomorrow. FOLLOW UP & RECOMMENDATIONS: -The GI office will make you a follow-up appointment. -Notify the doctor if you have any problems. -Follow up with PCP. -Office number [phone].[facility] Work Phone: Progress note No data available for this section [facility] for visit Narrativediscuss meds for dental procedureNoexcelsior [facility] Other Summary Purpose Family History Relationship Condition Age at Onset Recorded Date/T radha grandparent Heart disease Unknown Not Specified Malignant neoplasm of ovary Unknown grandparent Chronic obstructive pulmonary disease Unk nown Relationship Condition Age at Onset Recorded Date/T radha grandparent Heart disease Unknown Not Specified Malignant neoplasm of ovary Unknown grandparent Chronic obstructive pulmonary disease Unk nown Not Specified Malignant neoplasm Unknown Relationship Condition Age at Onset Recorded Date/T radha grandparent Heart disease Unknown mother Malignant neoplasm of ovary Unknown grandparent Chronic obstructive pulmonary disease Unk nown mother Malignant neoplasm Unknown Advance Directives Advance Directive Response Recorded Date/ Time Advance Directives No April 06 2:41pm Advance Directive Response Recorded Date/ Time Advance Directives No April 06 1:41pm Reason for Referral Reason *FU 03/14 consult and treat; [facility] Diagnosis 1 Acne, unspecified ac ne type (L70.9) Referral Organization [facility] Referring Provider First Name Shaun Referring Provider Last Name Traci Referring Provider [facility] Referred Address [address],[address] Referred Provider Specialty Dermatology Referral Priority Routine General Notes Abbey Parikh 023 11:32:52 AM >Received today and waiting for office notes to be locked before sending referral Abbey Parikh 03/07/2023 03:46:26 PM >Office notes locked. [facility] request us to fill out their form and fax to them. They will review the referral and call patient to schedule them. Referral was fax Clinical Notes Office [phone] Reason *Waiting for appt consult and treat Diagnosis 1 Coccyx pain (M53.3) Referral Organization [facility] Family [facility] Referring Provider First Name Shaun Referring Provider Last Name Traci Referring Provider Specialty Family [facility] [place] Referred Organization [facility] [employer] [place] Referred Provider Rell Marinelli Referred Address [address] [place] [place],[address] Referred Provider Specialty Pain Medicin e Referral Priority Routine General Notes Abbey Parikh 023 08:18:19 AM >Received today and sent P2P Reason 02/02/22 @ 11:30am consult and treat марина ; anxiety with depression BPD PTSD Diagnosis 1 Anxiety with depress ion (F41.8) Diagnosis 2 Borderline personali ty disorder (F60.3) Diagnosis 3 PTSD (post-traumatic stress disorder) (F43.10) [facility] Referring Provider First Name Shaun Referring Provider Last Name Traci Referring Provider Specialty Family [facility] [place] Referred Organization [facility] Referred Address [address] [place],[address] Referred Provider Specialty Psychiatry Referral Priority Routine Referral Appointment Date 2022-02-02 General Notes Jacqueline Brooks 2021 02:52:37 PM >referral printed and faxed to [phone] along with OV notes from 09/26/2021, 12/15/2021, 01/19/2022, and TE from 01/19/2022 Aiden Farr with a note to be put on cancellation list. Vale Parikhn 01/25/2022 06:53:47 AM >OK, thank you Jacqueline for the update. Will follow up on this one in a few days Vale Parikhn 01/27/2022 07:32:28 AM >Fax letter for appt update Abbey Parikh 01/27/2022 12:23:21 PM >Received letter back with appt Reason *FU 12/26 consutl and treat Diagnosis 1 Abnormal mammogram ( R92.8) Diagnosis 2 Mass of left breast, unspecified quadrant (N63.20) Diagnosis 3 Nipple discharge (N6 4.52) Referral Organization [facility] Family Medicin e [facility] Referring Provider First Name Shaun Referring Provider Last Name Traci Referring Provider Specialty [facility] [place] Referred Organization [facility] Referred Provider Denys Pearson Referred Address ,[place], [place],[address] Referred Provider Specialty Surgery Referral Priority Routine General Notes Abbey Parikh 022 02:15:28 PM >Received todayAbbey Parikh 12/16/2021 07:54:15 AM >Waiting for office notes to be locked before sending referralAbbey Parikh 12/19/2021 01:26:07 PM >: [facility] General Surgery office request us to fax or send referral P2P and the office will review the referral and will call patient to schedule. Referral was sent P2P Reason consult and [place] at ; anxiety hearing voices/sounds Diagnosis 1 Anxiety (F41.9) Diagnosis 2 Hearing voices (R44. 0) Referral Organization [facility] Referring Provider First Name Shaun Referring Provider Last Name Traci Referring Provider Specialty Family Prac [place] Referred Organization Unknown Facility Referred Provider Specialty Psychiatry Referral Priority Routine General Notes Jacqueline Brooks 2020 01:12:01 PM > per community hospital[facility]- Needs seen by a psychiatrist group. Willing to go to [place] or towards [place].Abbey Parikh 09/26/2021 01:59:20 PM >Reviewed a Dr. James Cosme MD. That is in [place] but goes to [place]. Will fax referral there and patient can choose which office to go to when they call her. Will fax once office notes is locked Clinical Notes Office [phone] Chief Complaint and Reason for Visit Chief Complaint r92.8 Left breast Mass Chief Complaint Abn sandra Chief Complaint Abn sandra m53.3 Chief Complaint N63.20 Chief Complaint N63.20 R19.8 Chief Complaint N63.20 R19.8 Rectal Bleeding, Abdominal Pain, Constipation, Makenna Chief Complaint Follow Up Z79.899 Chief Complaint Z79.899 D24.2 Chief Complaint Z79.899 D24.2 follow up Reason for Visit Difficulty sleeping Fibroadenoma of left breast Irritable bowel syndrome with diarrhea Schizophrenia Chief Complaint D24.2 follow up 6 month follow up Reason for Visit Difficulty sleeping Fibroadenoma of left breast Irritable bowel syndrome with diarrhea Schizophrenia Dyspepsia Hemorrhoids Irritable bowel syndrome with diarrhea Additional Source Comments INFORMATION SOURCE (unrecogn ized section and content) DATE CREATED AUTHOR 10/30/2020 [facility] DATE CREATED AUTHOR AUTHOR'S ORGANIZ ATION 08/17/2022 [facility] DATE CREATED AUTHOR AUTHOR'S ORGANIZ ATION 07/11/2023 Panchal Arroyo [facility] DATE CREATED AUTHOR AUTHOR'S ORGANIZ ATION 01/23/2024 [facility] REASON FOR VISIT (unrecogniz ed section and content) FOLLOW UP insomniaclinicalme dication for anxietyNo showreview labsClinical3 WEEK FOLLOW UPCounseling Referral UpdateFOLLOW UP left breast massclinicalno showClinicalno showrefill2 month Follow upPain Medicine Office NotesSACROCOCCYGEAL JOINT INJECTION /VWER noticeclinicalCONSULT FOR ABDOMINAL PAINER/ abdominal pain4 month Follow upOrders per doctorPt is here for a follow up. Patient states not much change in bowel habits since prior to the colonoscopy with Dr. Lambert in August. There is some abdominal pain but no blood in the stool. Care Team (unrecognized sect ion and content) Team Status: Inactive Member Role Status Dates Shaun Aviles , Primary Care Provider Active Denys Pearson , DO Attending Provider Active Ghanshyam Nieto Referring Provider Active Team Status: Inactive Member Role Status Dates Denys Pearson DO Attending Provider Active Shaun Aviles DO Primary Care Provider Active Team Status: Active Member Role Status Dates Shaun Aviles , Primary Care Provider Active Team Status: Inactive Member Role Status Dates Shaun Aviles DO Primary Care Provider Active Denys Pearson DO Attending Provider Active Team Status: Inactive Member Role Status Dates Shaun Aviles DO Primary Care Provider, Attending Caroli zuly Active Team Status: Inactive Member Role Status Dates Shaun Aviles DO Primary Care Provider Active Lj Stanton APRN Attending Provider Active Team Status: Inactive Member Role Status Dates Shaun Aviles DO Primary Care Provider Active Willie Lambert MD Attending Provider Active Team Status: Inactive Member Role Status Dates Lj Stanton APRN Attending Provider Active Start: October 16, 2023 End: October 16, 2023 Team Status: Inactive Member Role Status Dates Shaun Aviles DO Primary Care Provider Active Sta rt: December 27, 2023 End: December 27, 2023 Gail Lawrence MD Attending Provider Active Start: December 27, 2023 End: December 27, 2023 Team Status: Inactive Member Role Status Dates Shaun Aviles DO Primary Care Provide r, Attending Provider Active Start: January 22, 2024 End: January 22, 2024 Team Status: Inactive Member Role Status Dates Shaun Aviles DO Primary Care Provide r, Attending Provider Active Start: January 29, 2024 End: January 29, 2024 Team Status: Inactive Member Role Status Dates Shaun Aviles DO Primary Care Provider Active Sta rt: April 15, 2024 End: April 15, 2024 Lj Stanton APRN Attending Provider Active Start: April 15, 2024 End: April 15, 2024 Goals (unrecognized section and content) Goals may be documented in a n alternate section FOR RECORDS PERTAINING TO PATIENTS WHO ARE OR HAVE BEEN ENROLLED IN A CHEMICAL DEPENDENCY/SUBSTANCEABUSE PROGRAM, SOME INFORMATION MAY BE OMITTED. This clinical summary was aggregated from multiple sources. Caution should be exercised in using it in the provision of clinical care. This summary normalizes information from multiple sources, and as a consequence, information in this document may materially change the coding, format and clinical context of patient data. In addition, data may be omitted in some cases. CLINICAL DECISIONS SHOULD BE BASED ON THE PRIMARY CLINICAL RECORDS. [employer] provides no warranty or guarantee of the accuracy or completeness of information in this document.
[2024-05-18 17:54] VITALS: BP 136/76; PULSE 72; TEMP 37.1; O2SAT 100; BMI 24.8
--- NOTE | 2024-05-18 18:05 | CT_ITS ---
The [address] [address] Patient Name: BRIAN SULLIVAN MRN: [id number] date: 1995 Sex: F Assigned Patient Location: ER Current Patient Location: .MAIN Accession/Order Number: [id number] Exam Date: 05/18/2024 19:21 Report Date: 05/18/2024 21:58 At the request of: MAGDA SEPULVEDA Procedure: CT abdomen pelvis w con CT ABDOMEN AND PELVIS WITH CONTRAST: INDICATION: diarrhea history of colitis. COMPARISON: 07/19/2023. TECHNIQUE:Multiple thin section transaxial slices were acquired through the abdomen and pelvis with intravenous contrast. Coronal and sagittal reconstructed images were reviewed. Oral contrastWas not administered. FINDINGS: LOWER CHEST: The lower chest is unremarkable. LIVER: There is periportal edema on this examination which may be due to the increased hydration status of the patient. The inferior vena cava is distended. GALLBLADDER AND BILIARY SYSTEM: No obvious ductal dilation. No calcified stones. SPLEEN: The spleen is unremarkable. PANCREAS: The pancreas is unremarkable. ADRENAL GLANDS: The adrenal glands are unremarkable. KIDNEYS AND URETERS: There is no hydronephrosis of the kidneys.No obstructing urologic calcifications are present. VASCULATURE: Vascularity is unremarkable. PERITONEUM/RETROPERITONEUM: Trace amount of free fluid in the pelvis surrounding the uterus which may be physiologic. LYMPH NODES: No suspicious lymphadenopathy. GASTROINTESTINAL TRACT: The bowel is normal in caliber.No definitive acute inflammatory process is associated with the bowel.The appendix is visualized and is not inflamed. BLADDER: The urinary bladder is unremarkable. REPRODUCTIVE SYSTEM: Reproductive system is unremarkable. BODY WALL: Unremarkable. BONES: Osseous structures are unremarkable. CT/CT abdomen pelvis w con IMPRESSION: 1. No acute process in the abdomen or pelvis. Electronically authenticated by: BRYAN PINEDA Date: 05/18/2024 21:58
--- NOTE | 2024-05-18 18:18 | PC.NURSE ---
patient here with c/o abdominal pain and my shit looks like foamy yellow for past 5 days. history of coliltis and sees GI in [place]
[2024-05-18 18:25] LABS: Bilirubin Urine SMALL (NEGATIVE); Blood Urine NEGATIVE (NEGATIVE); Clarity Urine CLEAR (CLEAR); Color Urine YELLOW (YELLOW); Glucose Urine UA NEGATIVE (NEGATIVE); Ketones Urine NEGATIVE (NEGATIVE); Leukocyte Esterase Urine NEGATIVE (NEGATIVE); Nitrite Urine NEGATIVE (NEGATIVE); Protein Urine NEGATIVE (NEG/TRACE); Specific Gravity Urine >=1.030 (1.005-1.025); Urobilinogen Urine 0.2 EU/dL (0.2-1.0)
[2024-05-18 18:26] LABS: HCG Qualitative Urine* NEGATIVE (NEGATIVE); Internal Control Within Normal Limits
[2024-05-18 18:27] LABS: Basophils Percent Auto 0.1 % (0.2-2.0); Hematocrit 39.1 % (36.0-48.0); Immature Granulocytes Abs Auto 0.01 10^3/uL (0.00-0.03); Immature Granulocytes Pct Auto 0.1 % (0.0-0.5); Lymphocytes Percent Auto 25.3 % (20.5-60.0); Mean Corpuscular HGB Conc 33.2 g/dL (29.9-35.2); Mean Corpuscular Hemoglobin 27.8 pg (26.7-34.0); Mean Corpuscular Volume 83.5 fL (81.0-99.0); Mean Platelet Volume 9.2 fL (9.5-13.5); Monocytes Absolute Auto 0.5 10^3/uL (0.3-0.8); Monocytes Percent Auto 6.3 % (1.7-12.0); Neutrophils Absolute Auto 5.3 10^3/uL (1.4-6.5); Neutrophils Percent Auto 68.2 % (43.0-75.0); Platelet Count 293 10^3/uL (150-450); Red Blood Count 4.68 10^6/uL (4.20-5.40); Red Cell Distribution Width 12.9 % (11.0-15.0); White Blood Count 7.8 10^3/uL (4.0-11.0)
[2024-05-18 18:28] LABS: Urine Microscopic Indicated NO
[2024-05-18] MEDS: 0.9 % SODIUM CHLORIDE 1,000 ML 100 ML IV (18:37)
[2024-05-18] MEDS: MORPHINE SULFATE 2 MG/ML SYRINGE IV (18:38)
[2024-05-18] MEDS: ONDANSETRON PF 4 MG/2 ML VIAL IV (18:38)
[2024-05-18 18:42] LABS: Alanine Aminotransferase 20 U/L (14-59); Albumin Globulin Ratio 1.2; Albumin Level 4.3 g/dL (3.4-5.0); Alkaline Phosphatase 126 U/L (46-116); Anion Gap 14.1; Aspartate Amino Transferase 19 U/L (15-37); BUN Creatinine Ratio 8.2; Bilirubin Total 0.6 mg/dL (0.2-1.0); Calcium 9.5 mg/dL (8.5-10.1); Carbon Dioxide 28.3 mmol/L (21.0-32.0); Chloride 102 mmol/L (98-107); Estimated GFR (African America >60 (>=60); Estimated GFR (Non-African Ame >60 (>=60); Globulin 3.7 g/dL; Glucose 90 mg/dL (74-106); Potassium 3.4 mmol/L (3.5-5.1); Sodium 141 mmol/L (136-145)
--- NOTE | 2024-05-18 20:25 | ED.ABDPAIN1 ---
Documented by User: Kelly Quiorga 05/18/24 21:17 HPI - Abdominal Pain General Chief Complaint: Abdominal Pain Stated Complaint: ABD PAIN Time Seen by Provider: 05/18/24 17:58 Source: patient Mode of arrival: walk-in Limitations: no limitations History of Present Illness HPI narrative: 28-year-old female presents here with chief complaint diffuse abdominal pain. She states she has a history of colitis in June 2023. She has not had any issues since. She said to her last for 5 days she has had intermittent abdominal tenderness. Abdomen soft nontender to palpation today. States today she began to have a foam like stool which was yellow. Patient is afebrile nontoxic-appearing. She had a history of a bilateral salpingectomy. Denies a known history of . Related Data Home Medications ?Medication ?Instructions ?Recorded ?Confirmed clindamycin 1.2 % (1 % 1 applic topical DAILY 07/19/23 07/19/23 base)-benzoyl peroxide 5 % topical gel ketoconazole 2 % shampoo 1 applic topical DAILY 07/19/23 07/19/23 lumateperone 42 mg capsule 42 mg PO DAILY 07/19/23 07/19/23 (Caplyta) minocycline 100 mg capsule 100 mg PO Q12H 07/19/23 07/19/23 mirtazapine 45 mg tablet 45 mg PO QPM 07/19/23 07/19/23 Allergies Allergy/AdvReac Type Severity Reaction Status Date / Time ciprofloxacin [From Cipro] Allergy Severe Verified 07/19/23 10:40 ibuprofen [From Motrin] AdvReac Unknown Verified 06/28/23 16:49 latex AdvReac Unknown Verified 06/28/23 16:49 Sulfa (Sulfonamide AdvReac Unknown Verified 06/28/23 16:49 Antibiotics) Review of Systems ROS Narrative All Systems are negative except as noted/marked.All systems reviewed and otherwise negative Exam Narrative Exam Narrative: Nurses note and vital signs reviewed and patient is not hypoxic. General: The patient appears well and in no apparent distress. Patient is resting comfortably on cart. Skin: Warm, dry, no pallor noted. There is no rash noted. Head: Normocephalic, atraumatic Eye: Normal conjunctiva, no drainage, EOMI. PERRL Ears, Nose, Mouth, and Throat: oral mucosa is moist. Nares patent. Mouth without vesicles. Ear canals patent. Tm's without Erythema Cardiovascular: Regular Rate and Rhythm Respiratory: Patient is in no distress, no accessory muscle use, lungs are clear to auscultation, no wheezing, rales or rhonchi Back: non-tender, no CVA tenderness bilaterally to percussion. GI: Normal bowel sounds, no tenderness to palpation, no masses appreciated. No rebound, guarding, or rigidity noted. Musculoskeletal: The patient has no evidence of calf tenderness, no pitting edema, symmetrical pulses noted bilaterally Neurological: A&O x4, normal speech Psychiatric: Cooperative Constitutional Vital Signs, click to edit/add: Last Vital Signs Temp 98.8 F 05/18/24 17:54 Pulse 72 05/18/24 17:54 Resp 17 05/18/24 17:54 BP 136/76 05/18/24 17:54 Pulse Ox 100 05/18/24 17:54 O2 Del Method Room Air 05/18/24 17:54 Course Vital Signs Vital signs: Vital Signs Temperature 98.8 F 05/18/24 17:54 Pulse Rate 72 05/18/24 17:54 Respiratory Rate 17 05/18/24 17:54 Blood Pressure 136/76 05/18/24 17:54 Pulse Oximetry 100 05/18/24 17:54 Oxygen Delivery Method Room Air 05/18/24 17:54 Temperature 98.8 F 05/18/24 17:54 Pulse Rate 72 05/18/24 17:54 Respiratory Rate 17 05/18/24 17:54 Blood Pressure 136/76 05/18/24 17:54 Pulse Oximetry 100 05/18/24 17:54 Oxygen Delivery Method Room Air 05/18/24 17:54 MDM - Abdominal Pain Differential Diagnosis Differential diagnosis: Likely abdominal pain, constipation, diverticulitis, gastroenteritis and small bowel obstruction Medical Records Attestation: I reviewed the patient's medical records. Lab Data Attestation: I reviewed the patient's lab results. Labs: Lab Results 05/18/24 Range/Units 18:07 WBC 7.8 (4.0-11.0) 10^3/uL RBC 4.68 (4.20-5.40) 10^6/uL Hgb 13.0 (12.0-16.0) g/dL Hct 39.1 (36.0-48.0) % MCV 83.5 (81.0-99.0) fL MCH 27.8 (26.7-34.0) pg MCHC 33.2 (29.9-35.2) g/dL RDW 12.9 (11.0-15.0) % Plt Count 293 (150-450) 10^3/uL MPV 9.2 L (9.5-13.5) fL Neut % (Auto) 68.2 (43.0-75.0) % Lymph % (Auto) 25.3 (20.5-60.0) % Leake % (Auto) 6.3 (1.7-12.0) % Eos % (Auto) 0.0 L (0.9-7.0) % Baso % (Auto) 0.1 L (0.2-2.0) % Neut # (Auto) 5.3 (1.4-6.5) 10^3/uL Lymph # (Auto) 2.0 (1.2-3.8) 10^3/uL Leake # (Auto) 0.5 (0.3-0.8) 10^3/uL Eos # (Auto) 0.0 (0.0-0.7) 10^3/uL Baso # (Auto) 0.0 (0.0-0.1) 10^3/uL Abs Immat Gran (auto) 0.01 (0.00-0.03) 10^3/uL Imm/Tot Granulo (auto) 0.1 (0.0-0.5) % Sodium 141 (136-145) mmol/L Potassium 3.4 L (3.5-5.1) mmol/L Chloride 102 (98-107) mmol/L Carbon Dioxide 28.3 (21.0-32.0) mmol/L Anion Gap 14.1 BUN 7.0 (7.0-18.0) mg/dL Creatinine 0.85 (0.55-1.02) mg/dL Est GFR ( Amer) >60 (>=60) Est GFR (Non-Af Amer) >60 (>=60) BUN/Creatinine Ratio 8.2 Glucose 90 (74-106) mg/dL Calcium 9.5 (8.5-10.1) mg/dL Total Bilirubin 0.6 (0.2-1.0) mg/dL AST 19 (15-37) U/L ALT 20 (14-59) U/L Alkaline Phosphatase 126 H (46-116) U/L Total Protein 8.0 (6.4-8.2) g/dL Albumin 4.3 (3.4-5.0) g/dL Globulin 3.7 g/dL Albumin/Globulin Ratio 1.2 Lipase 36.0 (16.0-77.0) U/L Urine Color Yellow (YELLOW) Urine Clarity Clear (CLEAR) Urine pH 6.0 (5.0-9.0) Ur Specific [place] >=1.030 A (1.005-1.025) Urine Protein Negative (NEG/TRACE) mg/dL Urine Glucose (UA) Negative (NEGATIVE) mg/dL Urine Ketones Negative (NEGATIVE) mg/dL Urine Occult Blood Negative (NEGATIVE) Urine Nitrite Negative (NEGATIVE) Urine Bilirubin Small A (NEGATIVE) Urine Urobilinogen 0.2 (0.2-1.0) EU/dL Ur Leukocyte Esterase Negative (NEGATIVE) Urine HCG, Qual Negative (NEGATIVE) Imaging Data CT scan - abdomen: Radiologist's impression: ITS Impressions Abdomen/Pelvis CT 05/18/24 18:05 IMPRESSION: 1. No acute process in the abdomen or pelvis. Electronically authenticated by: BRYAN PINEDA Date: 05/18/2024 21:58 Discharge Plan Discharge Stand Alone Forms: Portal Instructions Chief Complaint: Abdominal Pain Clinical Impression: Abdominal pain, Diarrhea Patient Disposition: Home, Self-Care Condition: Good Prescriptions / Home Meds: No Action clindamycin-benzoyl peroxide 1.2 %(1 % base) -5 % gel 1 applic TOPICAL DAILY ketoconazole 2 % shampoo 1 applic TOPICAL DAILY Caplyta 42 mg capsule 42 mg PO DAILY minocycline 100 mg capsule 100 mg PO Q12H mirtazapine 45 mg tablet 45 mg PO QPM Print Language: Cambodian Instructions: Acute Diarrhea (ED), Acute Abdominal Pain (ED), Abdominal Pain (ED) Additional Instructions: follow up with your documentation consultant Referrals: Shaun Downey DO [Primary Care Provider] - 1 week Documented by User: Raúl Ojeda MD 05/18/24 22:21 HPI - Abdominal Pain General Chief Complaint: Abdominal Pain Stated Complaint: ABD PAIN Time Seen by Provider: 05/18/24 17:58 Related Data Home Medications ?Medication ?Instructions ?Recorded ?Confirmed clindamycin 1.2 % (1 % 1 applic topical DAILY 07/19/23 07/19/23 base)-benzoyl peroxide 5 % topical gel ketoconazole 2 % shampoo 1 applic topical DAILY 07/19/23 07/19/23 lumateperone 42 mg capsule 42 mg PO DAILY 07/19/23 07/19/23 (Caplyta) minocycline 100 mg capsule 100 mg PO Q12H 07/19/23 07/19/23 mirtazapine 45 mg tablet 45 mg PO QPM 07/19/23 07/19/23 Allergies Allergy/AdvReac Type Severity Reaction Status Date / Time ciprofloxacin [From Cipro] Allergy Severe Verified 07/19/23 10:40 ibuprofen [From Motrin] AdvReac Unknown Verified 06/28/23 16:49 latex AdvReac Unknown Verified 06/28/23 16:49 Sulfa (Sulfonamide AdvReac Unknown Verified 06/28/23 16:49 Antibiotics) Exam Constitutional Vital Signs, click to edit/add: Last Vital Signs Temp 98.8 F 05/18/24 17:54 Pulse 72 05/18/24 17:54 Resp 17 05/18/24 17:54 BP 136/76 05/18/24 17:54 Pulse Ox 100 05/18/24 17:54 O2 Del Method Room Air 05/18/24 17:54 Course Vital Signs Vital signs: Vital Signs Temperature 98.8 F 05/18/24 17:54 Pulse Rate 72 05/18/24 17:54 Respiratory Rate 17 05/18/24 17:54 Blood Pressure 136/76 05/18/24 17:54 Pulse Oximetry 100 05/18/24 17:54 Oxygen Delivery Method Room Air 05/18/24 17:54 Temperature 98.8 F 05/18/24 17:54 Pulse Rate 72 05/18/24 17:54 Respiratory Rate 17 05/18/24 17:54 Blood Pressure 136/76 05/18/24 17:54 Pulse Oximetry 100 05/18/24 17:54 Oxygen Delivery Method Room Air 05/18/24 17:54 MDM - Abdominal Pain MDM Narrative Medical decision making narrative: care transferred at change of shift. Patient has chronic loose stools and is followed by GI. Recently prescribed dicyclomine and PPI. Feels stool more loose now than usual and worried about colitis. CT returned without acute findings. Patient not able to provide stool sample during her 4 hours in the department. Discharged with lab requisition to return stool sample and advised to follow up with her doctor Lab Data Labs: Lab Results 05/18/24 Range/Units 18:07 WBC 7.8 (4.0-11.0) 10^3/uL RBC 4.68 (4.20-5.40) 10^6/uL Hgb 13.0 (12.0-16.0) g/dL Hct 39.1 (36.0-48.0) % MCV 83.5 (81.0-99.0) fL MCH 27.8 (26.7-34.0) pg MCHC 33.2 (29.9-35.2) g/dL RDW 12.9 (11.0-15.0) % Plt Count 293 (150-450) 10^3/uL MPV 9.2 L (9.5-13.5) fL Neut % (Auto) 68.2 (43.0-75.0) % Lymph % (Auto) 25.3 (20.5-60.0) % Leake % (Auto) 6.3 (1.7-12.0) % Eos % (Auto) 0.0 L (0.9-7.0) % Baso % (Auto) 0.1 L (0.2-2.0) % Neut # (Auto) 5.3 (1.4-6.5) 10^3/uL Lymph # (Auto) 2.0 (1.2-3.8) 10^3/uL Leake # (Auto) 0.5 (0.3-0.8) 10^3/uL Eos # (Auto) 0.0 (0.0-0.7) 10^3/uL Baso # (Auto) 0.0 (0.0-0.1) 10^3/uL Abs Immat Gran (auto) 0.01 (0.00-0.03) 10^3/uL Imm/Tot Granulo (auto) 0.1 (0.0-0.5) % Sodium 141 (136-145) mmol/L Potassium 3.4 L (3.5-5.1) mmol/L Chloride 102 (98-107) mmol/L Carbon Dioxide 28.3 (21.0-32.0) mmol/L Anion Gap 14.1 BUN 7.0 (7.0-18.0) mg/dL Creatinine 0.85 (0.55-1.02) mg/dL Est GFR ( Amer) >60 (>=60) Est GFR (Non-Af Amer) >60 (>=60) BUN/Creatinine Ratio 8.2 Glucose 90 (74-106) mg/dL Calcium 9.5 (8.5-10.1) mg/dL Total Bilirubin 0.6 (0.2-1.0) mg/dL AST 19 (15-37) U/L ALT 20 (14-59) U/L Alkaline Phosphatase 126 H (46-116) U/L Total Protein 8.0 (6.4-8.2) g/dL Albumin 4.3 (3.4-5.0) g/dL Globulin 3.7 g/dL Albumin/Globulin Ratio 1.2 Lipase 36.0 (16.0-77.0) U/L Urine Color Yellow (YELLOW) Urine Clarity Clear (CLEAR) Urine pH 6.0 (5.0-9.0) Ur Specific [place] >=1.030 A (1.005-1.025) Urine Protein Negative (NEG/TRACE) mg/dL Urine Glucose (UA) Negative (NEGATIVE) mg/dL Urine Ketones Negative (NEGATIVE) mg/dL Urine Occult Blood Negative (NEGATIVE) Urine Nitrite Negative (NEGATIVE) Urine Bilirubin Small A (NEGATIVE) Urine Urobilinogen 0.2 (0.2-1.0) EU/dL Ur Leukocyte Esterase Negative (NEGATIVE) Urine HCG, Qual Negative (NEGATIVE) Imaging Data CT scan - abdomen: Radiologist's impression: ITS Impressions Abdomen/Pelvis CT 05/18/24 18:05
[2024-05-18] MEDS: PROMETHAZINE HCL 12.5 MG in 0.9 % SODIUM CHLORIDE 50 ML 202 MG IV (21:00)
== END 2024-05-18 22:35 | disposition home or self-care (01) ==
PROVIDERS: Physician Assistant; Emergency Provider Internal Medicine; PCP Family Medicine
DX: R10.9 Unspecified abdominal pain (principal); R19.7 Diarrhea, unspecified; Z90.79 Acquired absence of other genital organ(s)
CPT/HCPCS: 36415; 74177; 80053; 81003; 83690; 84703; 85025; 87045; 87046; 87427; 96361; 96365; 96375; 99285; J2250; J2270; J2405; Q9967

== ENCOUNTER 2024-05-19 12:42 | Outpatient (REF) | payer OTHER, SELFPAY ==
--- OUTSIDE RECORDS SUMMARY | 2024-05-19 13:09 | XMS_ITS | CCD ---
Author Organization [facility] Care Team Providers Care Distribution Lead Name Role Phone PROVIDER, UNKNOWN Admitting Unavailable PATIENT, SELF Referring Unavailable BELKYS CARABALLO Attending Unavailable Shaun Aviles Unavailable SHWETA GONZALEZ Primary Care Physician Unavailab DO Denys Camejo Attending Provider DO Shaun Aviles Primary Care Provider Ghanshyam Nieto Referring Provider TRACI, DR DUNN Primary Care Unavailable YOSELIN, [...] Consulting Unavailable Kuns, Shaun Primary Care Provider [phone] DO Denys Pearson Attending Provider Nicoláss, DO Shaun Primary Care Provider Michel, DO Mcfarlane Attending Provider [phone] Nicoláss, DO Dunn Attending Provider Rell Marinelli Unavailable Lj Stanton Unavailable Mirna Mcmullen Attending Unavailable Nicoláss, DO Shaun Primary Care Provider [phone] Kuns, DO Dunn Attending Provider [phone] Nicoláss, DO Shaun Primary Care Provider Nicoláss, DO Dunn Attending Provider [phone] ERIKA Stanton Attending Provider MD Willie Lambert Attending Provider Willie Lambert Unavailable Traci, DO Dunn Primary Care Provider [phone] MD Gail Lawrence Attending Provider DO Shaun Aviles Attending Provider [phone] Shaun Aviles Attending Unavailable Nicoláss, Shaun Admitting [...] Unavailable DO Shaun Aviles Primary Care Provider Allergies Allergy Classification Reported Allergen(s) Allergy Type Date of Onset Reaction(s) Facility Latex (1 source) Latex Substance Allergy 04-15-20 Rash [facility] NSAIDs (1 source) Ibuprofen Drug Allergy 04-15-20 Diarrhea, tongue sores [facility] Quinolones (antibiotic) (1 source) Ciprofloxacin Drug Allergy 04-15-20 phsychosis [facility] Sulfonamides (antibiotic) (2 sources) Sulfacetamide Drug Allergy 04-15-20 [facility] (20 sources) Ibuprofen; Translations: [IBUPROFEN] Drug Allergy 09-06-20 15 tongue sores, Ulcer, Unknown Reaction, Diarrhea, Diarrhea, tongue sores [facility] (15 sources) Latex; Translations: [LATEX] Propensity to adverse reactions to drug (disorder) 09-06-20 15 Rash, Unknown [facility] (1 source) Sulfonamides (Antibiotic); Translations: [SULFA ANTIBIOTICS] Propensity to adverse reactions to drug (disorder) 09-06-20 15 [facility] (20 sources) Sulfacetamide Drug Allergy 10-16-19 [facility] (10 sources) Sulfonamides (Antibiotic); Translations: [Sulfa (Sulfonamide Antibiotics)] Allergy to substance 04-28-20 Unknown Reaction, [facility] (2 sources) Adhesive agent Drug allergy (disorder) [facility] (3 sources) Ibuprofen; Translations: [Motrin] Drug Allergy [facility] (2 sources) Sulfonamides (Antibiotic) Drug allergy (disorder) [facility] (2 sources) Sulfonamides (Antibiotic); Translations: [sulfa drugs] Drug allergy Urticaria (disorder) [facility] (6 sources) Ciprofloxacin Drug Allergy 07-23-20 phsychosis [facility] (1 source) Ciprofloxacin Drug Allergy 10-16-19 [facility] Rep[facility] (1 source) Sulfacetamide Drug Allergy 10-16-19 [facility] Repository Medications Current Medications Medication Drug [...] day(s), # 12 tab(s), Refills(s) 0, Pharmacy: [facility], 160, cm, 04/28/22 16:08:00 EDT, [...] oral capsule (2 sources) Start: 01-29-2024 take 57608 ug by mouth once daily Biotin Active 56730 MCG PO Daily January 29, 2024 12:00am [...] q8hr, # 10 tab(s), Refills(s) 0, Pharmacy: [facility], 160, cm, 07/01/23 17:58:00 EDT, [...] 11-07-2021 Chronic Other aftercare (1 source) 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; 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] Onset: 07-10-2022 Episodic Other [...] LT limited 01-21 US breast LT limited [facility] [place] [address] Ultrasound Report Signed Patient: Brian Sullivan MR#: [id number] 7 : 1995 Acct:[id number] Age/Sex: 28 / F ADM Date: 01/22/24 Loc: [facility] Room: Type: [facility] Attending Dr: Shaun Aviles DO Ordering [...] Cassandra Rubio M.D.01/22/2024 11:12 AM Dictation Location: [facility] Tech: Jennifer Oli Transcribed By: SABA 01/22/24 1112 Dictated By: Cassandra Rubio MD 01/22/24 1044 Signed By: 01/22/24 1112 Normal [facility] Alanine Aminotransferaseon 0 12-27-2023 ALT [Catalytic activity/Vol] 9 U/L Normal [facility] Comment on above: Performed By: #### A ST, ALT, TRIG, CBC #### [facility] [address] Alanine aminotransferase [En zymatic activity/volume] in Serum or PlasmaOrdered By: Gail Lawrence on 12-27-2023 ALT [Catalytic activity/Vol] 9 U/L 7 [facility] Aspartate Amino Transferaseo n 12-27-2023 AST [Catalytic activity/Vol] 18 U/L Normal 13-39 [facility] Comment on above: Performed By: #### A ST, ALT, TRIG, CBC #### [facility] [address] [place] [address] [place] Aspartate aminotransferase [ Enzymatic activity/volume] in Serum or PlasmaOrdered By: Gail Lawrence on 12-27-2023 AST [Catalytic activity/Vol] 18 U/L 13-39 [facility] Basophils Auto (Bld) [#/Vol] Ordered By: Gail Lawrence on 12-27-2023 Basophils (Bld) [#/Vol] 0.0 10*3/uL 0.0-0.2 [facility] Basophils/100 WBC Auto (Bld) Ordered By: Gail Lawrence on 12-27-2023 Basophils/100 WBC (Bld) 0.1 % . [facility] Complete Blood Count Auto Di ffon 12-27-2023 Basophils (Bld) [#/Vol] 0.0 10*3/uL Normal 0.0-0.2 [facility] Comment on above: Result Comment: PERF ORMED BY: [place] [address] PATHOLOGIST HEALTH MANAGER ALBA SCHULTE M.D. Performed By: #### A ST, ALT, TRIG, CBC #### [address] Basophils/100 WBC (Bld) 0.1 % Normal . [facility] Comment on above: Performed By: #### A ST, ALT, TRIG, CBC #### [place] [address] [place] Eosinophils (Bld) [#/Vol] 0.0 10*3/uL Normal 0.0-0.45 [facility] Comment on above: Performed By: #### A ST, ALT, TRIG, CBC #### [address] Eosinophils/100 WBC (Bld) 0.0 % Normal . [facility] Comment on above: Performed By: #### A ST, ALT, TRIG, CBC #### [place] [address] [place] Erythrocyte distribution width (RBC) [Ratio] 14.1 % Normal 11.9-15.3 [facility] Comment on above: Performed By: #### A ST, ALT, TRIG, CBC #### [place] [address] [place] Hematocrit (Bld) [Volume fraction] 37.9 % Normal 34.0-46.4 [facility] Comment on above: Performed By: #### A ST, ALT, TRIG, CBC #### [address] Hemoglobin (Bld) [Mass/Vol] 12.6 g/dL Normal 11.8-15.4 [facility] Comment on above: Performed By: #### A ST, ALT, TRIG, CBC #### [address] Lymphocytes (Bld) [#/Vol] 1.9 10*3/uL Normal 1.00-4.8 [facility] Comment on above: Performed By: #### A ST, ALT, TRIG, CBC #### [address] Lymphocytes/100 WBC (Bld) 29.2 % Normal . [facility] Comment on above: Performed By: #### A ST, ALT, TRIG, CBC #### [address] MCH (RBC) [Entitic mass] 26.8 pg Normal 24.7-34.3 [facility] Comment on above: Performed By: #### A ST, ALT, TRIG, CBC #### [address] MCV (RBC) [Entitic vol] 80.5 fL Normal 80-100 [facility] Comment on above: Performed By: #### A ST, ALT, TRIG, CBC #### [address] Mean Corpuscular HGB Conc 33.3 g/dL Normal 32.0-35.0 [facility] Comment on above: Performed By: #### A ST, ALT, TRIG, CBC #### [place] [address] [place] Monocytes (Bld) [#/Vol] 0.4 10*3/uL Normal 0.0-0.8 [facility] Comment on above: Performed By: #### A ST, ALT, TRIG, CBC #### [place] [address] [place] Monocytes/100 WBC (Bld) 5.7 % Normal . [facility] Comment on above: Performed By: #### A ST, ALT, TRIG, CBC #### [address] Neutrophils (Bld) [#/Vol] 4.2 10*3/uL Normal 1.8-7.7 [facility] Comment on above: Performed By: #### A ST, ALT, TRIG, CBC #### [address] Neutrophils/100 WBC (Bld) 65.0 % Normal . [facility] Comment on above: Performed By: #### A ST, ALT, TRIG, CBC #### [address] NRBC% 0.0 /100{WBC} Normal 0-0.5 [facility] Comment on above: Performed By: #### A ST, ALT, TRIG, CBC #### [address] Platelet mean volume (Bld) [Entitic vol] 6.7 fL Normal 6.3-10.7 [facility] Comment on above: Performed By: #### A ST, ALT, TRIG, CBC #### [place] [address] [place] Platelets (Bld) [#/Vol] 284 10*3/uL Normal 150-450 [facility] Comment on above: Performed By: #### A ST, ALT, TRIG, CBC #### [address] RBC (Bld) [#/Vol] 4.71 10*6/uL Normal 3.60-5.00 [facility] Comment on above: Performed By: #### A ST, ALT, TRIG, CBC #### [place] [address] [place] WBC (Bld) [#/Vol] 6.5 10*3/uL Normal 3.8-11.6 [facility] Comment on above: Performed By: #### A ST, ALT, TRIG, CBC #### [facility] [address] [place] [id number] [facility] Eosinophils Auto (Bld) [#/Vo l]Ordered By: Gail Lawrence on 12-27-2023 Eosinophils (Bld) [#/Vol] 0.0 10*3/uL 0.0-0.45 [facility] Eosinophils/100 WBC Auto (Bl d)Ordered By: Gail Lawrence on 12-27-2023 Eosinophils/100 WBC (Bld) 0.0 % . [facility] Erythrocyte distribution wid th Auto (RBC) [Ratio]Ordered By: Gail Lawrence on 12-27-2023 Erythrocyte distribution width (RBC) [Ratio] 14.1 % 11.9-15.3 [facility] Hematocrit Auto (Bld) [Volum e fraction]Ordered By: Gial Lawrence on 12-27-2023 Hematocrit (Bld) [Volume fraction] 37.9 % 34.0-46.4 [facility] Hemoglobin [Mass/volume] in BloodOrdered By: Gail Lawrence on 12-27-2023 Hemoglobin (Bld) [Mass/Vol] 12.6 g/dL 11.8-15.4 [facility] Leukocytes [#/volume] correc frieda for nucleated erythrocytes in Blood by Automated counOrdered By: Gail Lawrence on 12-27-2023 WBC corrected for nucl RBC Auto (Bld) [#/Vol] 6.5 10*3/uL 3.8-11.6 [facility] Lymphocytes Auto (Bld) [#/Vo l]Ordered By: Gail Lawrence on 12-27-2023 Lymphocytes (Bld) [#/Vol] 1.9 10*3/uL 1.00-4.8 [facility] Lymphocytes/100 WBC Auto (Bl d)Ordered By: Gail Lawrence on 12-27-2023 Lymphocytes/100 WBC (Bld) 29.2 % . [facility] MCH Auto (RBC) [Entitic mass ]Ordered By: Gail Lawrence on 12-27-2023 MCH (RBC) [Entitic mass] 26.8 pg 24.7-34.3 [facility] MCHC Auto (RBC) [Mass/Vol]Or dered By: Gail Lawrence on 12-27-2023 MCHC (RBC) [Mass/Vol] 33.3 g/dL 32.0-35.0 [facility] MCV Auto (RBC) [Entitic vol] Ordered By: Gail Lawrence on 12-27-2023 MCV (RBC) [Entitic vol] 80.5 fL 80-100 [facility] Monocytes Auto (Bld) [#/Vol] Ordered By: Gail Lawrence on 12-27-2023 Monocytes (Bld) [#/Vol] 0.4 10*3/uL 0.0-0.8 [facility] Monocytes/100 WBC Auto (Bld) Ordered By: Gail Lawrence on 12-27-2023 Monocytes/100 WBC (Bld) 5.7 % . [facility] Neutrophils Auto (Bld) [#/Vo l]Ordered By: Gail Lawrence on 12-27-2023 Neutrophils (Bld) [#/Vol] 4.2 10*3/uL 1.8-7.7 [facility] Neutrophils/100 WBC Auto (Bl d)Ordered By: Gail Lawrence on 12-27-2023 Neutrophils/100 WBC (Bld) 65.0 % . [facility] Nucleated erythrocytes [Pres ence] in Blood by Automated countOrdered By: Gail Lawrence on 12-27-2023 Nucleated RBC Auto Ql (Bld) 0.0 /100{WBC} 0-0.5 [facility] Platelet mean volume Auto (B ld) [Entitic vol]Ordered By: Gail Lawrence on 12-27-2023 Platelet mean volume (Bld) [Entitic vol] 6.7 fL 6.3-10.7 [facility] Platelets Auto (Bld) [#/Vol] Ordered By: Gail Lawrence on 12-27-2023 Platelets (Bld) [#/Vol] 284 10*3/uL 150-450 [facility] RBC Auto (Bld) [#/Vol]Ordere d By: Gail Lawrence on 12-27-2023 RBC (Bld) [#/Vol] 4.71 10*6/uL 3.60-5.00 [facility] Triglyceride [Mass/volume] i n Serum or PlasmaOrdered By: Gail Lawrence on 12-27-2023 Triglyceride [Mass/Vol] 78 mg/dL 35-149 [facility] Comment on above: TRIG ATP III CLASSIF ICATIONTRIG less than 150 mg/dL NormalTRIG 150-199 mg/dL Borderline highTRIG 200-500 mg/dL High TRIG greater than 500 mg/dL Very highStandard traceable to the Center for Disease Conrtrol and Prevention (CDC) test method. Triglycerideson 12-27-2023 Triglyceride [Mass/Vol] 78 mg/dL Normal 35-149 [facility] Comment on above: Result Comment: TRIG ATP III CLASSIFICATION TRIG less than 150 mg/dL Normal TRIG 150-199 mg/dL Borderline high TRIG 200-500 mg/dL High TRIG greater than 500 mg/dL Very high Standard traceable to the Center for Disease Conrtrol and Prevention (CDC) test method. PERFORMED BY: [place] [address] PATHOLOGIST HEALTH MANAGER ALBA SCHULTE M.D. Performed By: #### A ST, ALT, TRIG, CBC #### [address] WBC Auto (Bld) [#/Vol]Ordere d By: Gail Lawrence on 12-27-2023 WBC (Bld) [#/Vol] 6.5 10*3/uL 3.8-11.6 [facility] Amphetamine Screen Ql (U)Ord ered By: Willie Lambert on 08-22-2023 Amphetamines Ql (U) Negative Negative [facility] Barbiturates [Presence] in U rine by Screen methodOrdered By: Willie Lambert on 08-22-2023 Barbiturates Screen Ql (U) Negative Negative [facility] Benzodiazepines Screen Ql (U )Ordered By: Willie Lambert on 08-22-2023 Benzodiazepines Ql (U) Negative Negative [facility] Benzoylecgonine [Presence] i n Urine by Screen methodOrdered By: Willie Lambert on 08-22-2023 Benzoylecgonine Screen Ql (U) Negative Negative [facility] Cannabinoids [Presence] in U rine by Screen methodOrdered By: Willie Lambert on 08-22-2023 Cannabinoids Screen Ql (U) Positive Negative [facility] Comment on above: These are unconfirme d results and should not be used for legal purposes. Drug Cut-Off Concentration: AMPH 1000 ng/mL SENG 200 ng/mL DAVIDA 200 ng/mL COCM 300 ng/mL OP 300 ng/mL PCP 25 ng/mL THC 20 ng/mL Drug Screen,Urineon 08-22-20 Amphetamine Screen,Urine Negative Normal Negative [facility] Comment on above: Performed By: #### U RDS #### [address] Barbiturate Screen,Urine Negative Normal Negative [facility] Comment on above: Performed By: #### U RDS #### [address] Benzodiazepines Screen,Urine Negative Normal Negative [facility] Comment on above: Performed By: #### U RDS #### [address] Cannabinoid Screen,Urine Positive High Negative [facility] Comment on above: Result Comment: Thes e are unconfirmed results and should not be used for legal purposes. Drug Cut-Off Concentration: AMPH 1000 ng/mL SENG 200 ng/mL DAVIDA 200 ng/mL COCM 300 ng/mL OP 300 ng/mL PCP 25 ng/mL THC 20 ng/mL PERFORMED BY: [place] [address] PATHOLOGIST HEALTH MANAGER ALBA SCHULTE M.D. Performed By: #### U RDS #### [address] Cocaine Screen,Urine Negative Normal Negative [facility] Comment on above: Performed By: #### U RDS #### [place] [address] [place] Opiate Screen,Urine Negative Normal Negative [facility] Comment on above: Performed By: #### U RDS #### [place] [address] [place] Phencyclidine Screen,Urine Negative Normal Negative [facility] Comment on above: Performed By: #### U RDS #### [facility] [address] [place] [id number] [facility] HCG ( test) SHANDAyan cash Ql (U)Ordered By: Willie Lambert on 08-22-2023 HCG ( test) Ql (U) Negative [facility] HCG,Urineon 08-22-2023 Beta HCG ( test) Ql (U) Negative Normal [facility] Comment on above: Result Comment: PERF ORMED BY: [place] [address] PATHOLOGIST HEALTH MANAGER ALBA SCHULTE M.D. Performed By: #### U HCG #### [facility] [address] [place], [place] [id number] [facility] Harshal 08-22-2023 L - -------- Specimen: [id number] Received: 08/22/23 Status: EDITH Darrin Num: [id number] Spec Type: Surgical Subm Dr: Willie Lambert MD Tissues: A Colon Biopsy (RANDOM COLON BX) Procedures: KENNEDY/Lucie, Gross/Micro L4 -------- Age/ Patient Sex Location Account Attending Physician -------- Brian Sullivan / [id number] Willie Lambert MD -------- SPEC NUM: [id number] RECD: 08/22/23 STATUS: EDITH CAMEJO NUM: [id number] SANTOS: 08/22/23 DR: Willie Lambert MD ENTERED: 08/22/[address] [facility] [address]: ROBERT TYPE: Surgical DEPT: S ORDERED: [...] Microscopic Description Microscopic examinations performed -------- Specimen: [id number] Received: 08/22/23 Status: EDITH Camejo Num: [id number] Spec Type: Surgical Subm Dr: Willie Lambert MD Tissues: A Colon Biopsy (RANDOM COLON BX) Procedures: Sandip SHER/Bruna L4 -------- Patient: Brian Sullivan [id number] (Continued) -------- Specimen: [id number] Received: 08/22/23 (Continued) Signed (signature on file) Yassine Muniz MD 08/23/23 1833 -------- Specimen: [id number] Received: 08/22/23 Status: EDITH Camejo Num: [id number] Spec Type: Surgical Subm Dr: Willie Lambert MD Tissues: A Colon Biopsy (RANDOM COLON BX) Procedures: Sandip SHER/Bruna L4 -------- Patient: Brian Sullivan [id number] (Continued) -------- Specimen: [id number] Received: 08/22/23 (Continued) CPT Codes 64197 -------- -------- Specimen: [id number] Received: 08/22/23 Status: EDITH Camejo Num: [id number] Spec Type: Surgical Subm Dr: Willie Lambert MD Tissues: A Colon Biopsy (RANDOM COLON BX) Procedures: HE/2, Gross/Micro L4 -------- Patient: Brian Sullivan [id number] (Continued) -------- Signed (signature on file) Yassine Muniz MD 08/23/23 1833 Normal [facility] Opiates [Presence] in Urine by Screen methodOrdered By: Willie Lambert on 08-22-2023 Opiates Screen Ql (U) Negative Negative [facility] Phencyclidine Screen Ql (U)O rdered By: Willie Lambert on 08-22-2023 Phencyclidine Ql (U) Negative Negative [facility] C reactive protein [Mass/vol ume] in Serum or PlasmaOrdered By: Lj Stanton on 08-15-2023 CRP [Mass/Vol] < 0.5 mg/dL 0.0-0.5 [facility] C-Reactive Proteinon 023 CRP [Mass/Vol] mg/L Normal 0.0-0.5 [facility] Comment on above: Order Comment: Reaso n for Exam Alternating constipation and diarrhea Performed By: #### C USTOOL, CRP, ESR, TSH3 ####[facility] [id number]#### OPEXAM, CELIAC, HIV SCREEN, CALPROTECT, ELASTASE STOOL ####[facility] , Calprotectin, Fecalon 2022 Calprotectin, Fecal 8 Normal 0-120 [facility] Comment on above: Order Comment: Reaso n for Exam Alternating constipation and diarrhea Result Comment: Conc entration Interpretation Follow-Up < 5 - 50 ug/g Normal None >50 -120 ug/g Borderline Re-evaluate in 4-6 weeks >120 ug/g Abnormal Repeat as clinically indicated Performed at: [address] [id number] Inorganic Chemistry Teacher: Viet Taylor MD, Phone: [phone] PERFORMED BY: [facility] [address] [place] [address] PATHOLOGIST HEALTH MANAGER ALBA SCHULTE M.D. Performed By: #### C USTOOL, CRP, ESR, TSH3 ####[address]#### OPEXAM, CELIAC, HIV SCREEN, CALPROTECT, ELASTASE STOOL ####[facility] , Celiacon 08-15-2023 Deamidated Gliadin Abs, IgA 9 Normal 0-19 [facility] Comment on above: Order Comment: Reaso n for Exam Alternating constipation and diarrhea Result Comment: Nega tive 0 - 19 Weak Positive 20 - 30 Moderate to Strong Positive >30 Performed By: #### C USTOOL, CRP, ESR, TSH3 ####[address]#### OPEXAM, CELIAC, HIV SCREEN, CALPROTECT, ELASTASE STOOL ####[facility] , Deamidated Gliadin Abs, IgG 4 Normal 0-19 [facility] Comment on above: Order Comment: Reaso n for Exam Alternating constipation and diarrhea Result Comment: Nega tive 0 - 19 Weak Positive 20 - 30 Moderate to Strong Positive >30 Performed By: #### C USTOOL, CRP, ESR, TSH3 ####[address]#### OPEXAM, CELIAC, HIV SCREEN, CALPROTECT, ELASTASE STOOL ####[facility] , Endomysial Antibody IgA Negative Normal Negative [facility] Comment on above: Order Comment: Reaso n for Exam Alternating constipation and diarrhea Performed By: #### C USTOOL, CRP, ESR, TSH3 ####[address]#### OPEXAM, CELIAC, HIV SCREEN, CALPROTECT, ELASTASE STOOL ####[facility] , Immunoglobulin A, Qn, Serum 180 mg/dL Normal 87-352 [facility] Comment on above: Order Comment: Reaso n for Exam Alternating constipation and diarrhea Result Comment: Perf ormed at: - [facility] [address] [id number] Inorganic Chemistry Teacher: Joey Hoyos PhD, Phone: [phone] Performed By: #### C USTOOL, CRP, ESR, TSH3 ####[address]#### OPEXAM, CELIAC, HIV SCREEN, CALPROTECT, ELASTASE STOOL ####[facility] , T-Transglutaminase (tTG) IgA <2 Normal 0-3 [facility] Comment on above: Order Comment: Reaso n for Exam Alternating constipation and diarrhea Result Comment: Nega tive 0 - 3 Weak Positive 4 - 10 Positive >10 Tissue Transglutaminase (tTG) has been identified as the endomysial antigen. Studies have demonstr- ated that endomysial IgA antibodies have over 99% specificity for gluten sensitive enteropathy. Performed By: #### C USTOOL, CRP, ESR, TSH3 ####[address]#### OPEXAM, CELIAC, HIV SCREEN, CALPROTECT, ELASTASE STOOL ####[facility] , T-Transglutaminase (tTG) IgG 4 Normal 0-5 [facility] Comment on above: Order Comment: Reaso n for Exam Alternating constipation and diarrhea Result Comment: Nega tive 0 - 5 Weak Positive 6 - 9 Positive >9 Performed By: #### C USTOOL, CRP, ESR, TSH3 ####[address]#### OPEXAM, CELIAC, HIV SCREEN, CALPROTECT, ELASTASE STOOL ####[facility] , Elastase.pancreatic [Mass/ma ss] in StoolOrdered By: Lj Stanton on 08-15-2023 Elastase.pancreatic (Stl) [Mass/Mass] 449 >200 [facility] Comment on above: Result Units: ug [address] st./g Severe Pancreatic Insufficiency: <100 Moderate Pancreatic Insufficiency: 100 - 200 Normal: >200Performed at: [address] [id number] Director: Viet Taylor MD, Phone: [phone] Erythrocyte Sedimentation Ra nikita 08-15-2023 ESR (Bld) [Velocity] 16 mm/h Normal 0-19 [facility] Comment on above: Order Comment: Reaso n for Exam Alternating constipation and diarrhea Result Comment: PERF ORMED BY: [place] [address] PATHOLOGIST HEALTH MANAGER ALBA SCHULTE M.D. Performed By: #### C USTOOL, CRP, ESR, TSH3 #### [address] #### OPEXAM, CELIAC, HIV SCREEN, CALPROTECT, ELASTASE STOOL #### [facility] , Erythrocyte sedimentation ra te by Photometric methodOrdered By: Lj Stanton on 08-15-2023 ESR Photometric method (Bld) [Velocity] 16 mm/hr 0-19 [facility] HIV 1/O/2 Antigen/Antibodyon 08-15-2023 HIV Screen 4th Generation Non-Reactive Normal Non Reactive [facility] Comment on above: Order Comment: Reaso n for Exam Alternating constipation and diarrhea Result Comment: HIV Negative HIV-1/HIV-2 antibodies and HIV-1 p24 antigen were NOT detected. There is no laboratory evidence of HIV infection. Performed at: [address] [id number] Inorganic Chemistry Teacher: Joey Hoyos PhD, Phone: [phone] PERFORMED BY: [place] [address] PATHOLOGIST HEALTH MANAGER ALBA SCHULTE M.D. Performed By: #### C USTOOL, CRP, ESR, TSH3 ####[facility] [id number] [address]#### OPEXAM, CELIAC, HIV SCREEN, CALPROTECT, ELASTASE STOOL ####[facility] , HIV 1 and HIV-2 antibody ass ay with HIV-1 p24 antigen detectionOrdered By: Lj Stanton on 08-15-2023 HIV 1+2 Ab+HIV1 p24 Ag IA Ql Non-Reactive Non Reactive [facility] Comment on above: HIV NegativeHIV-1/HI V-2 antibodies and HIV-1 p24 antigen were NOTdetected. There is no laboratory evidence of HIV infection.Performed at: [facility] [address] [id number] Director: Joey Hoyos PhD, Phone: [phone] IgA [Mass/volume] in Serum o r PlasmaOrdered By: Lj Stanton on 08-15-2023 IgA [Mass/Vol] 180 mg/dL 87-352 [facility] Comment on above: Performed at: [employer] [facility] [address] [id number] Director: Joey Hoyos PhD, Phone: [phone] No Panel InformationOrdered By: Lj Stanton on 08-15-2023 Endomysial IgA Antibody Negative Negative [facility] OVA AND PARASITEon 3 OVA AND [...] possibility of a parasitic infection. Performed at: [facility] [facility] [address] [id number] Inorganic Chemistry Teacher: Joey Hoyos PhD, Phone: [phone] PERFORMED BY: [facility] [address] [place] [address] PATHOLOGIST HEALTH MANAGER ALBA SCHULTE M.D. Normal [facility] Comment on above: Performed By: #### C USTOOL, CRP, ESR, TSH3 ####[facility] [place] [id number] [facility]#### OPEXAM, CELIAC, HIV SCREEN, CALPROTECT, ELASTASE STOOL ####[facility] , Pancreatic Elastase, Stoolon 08-15-2023 Pancreatic Elastase, Stool 449 Normal >200 [facility] Comment on above: Order Comment: Reaso n for Exam Alternating constipation and diarrhea Result Comment: Resu lt Units: ug Elast./g Severe Pancreatic Insufficiency: <100 Moderate Pancreatic Insufficiency: 100 - 200 Normal: >200 Performed at: [address] [id number] Inorganic Chemistry Teacher: Viet Taylor MD, Phone: [phone] PERFORMED BY: [facility] [address] [place] [address] PATHOLOGIST HEALTH MANAGER ALBA SCHULTE M.D. Performed By: #### C USTOOL, CRP, ESR, TSH3 ####[place] [id number] [place] [id number] [facility]#### OPEXAM, CELIAC, HIV SCREEN, CALPROTECT, ELASTASE STOOL ####[facility] , Serum gliadin peptide IgA an tibody assay (units/volume)Ordered By: Lj Stanton on 08-15-2023 Gliadin peptide IgA Qn (S) 9 units 0-19 [facility] Comment on above: Negative 0 - 19 Weak Positive 20 - 30 Moderate to Strong Positive >30 Serum gliadin peptide IgG an tibody assay (units/volume)Ordered By: Lj Stanton on 08-15-2023 Gliadin peptide IgG Qn (S) 4 units 0-19 [facility] Comment on above: Negative 0 - [...] tTG IgG Qn (S) 4 U/mL 0-5 [facility] Comment on above: Negative 0 - [...] coli 0157:H7 Isolated PERFORMED BY: [facility] [address] [place] [address] PATHOLOGIST HEALTH MANAGER ALBA SCHULTE M.D. Normal [facility] Comment on above: Performed By: #### C USTOOL, CRP, ESR, TSH3 ####[facility] [id number] [address]#### OPEXAM, CELIAC, HIV SCREEN, CALPROTECT, ELASTASE STOOL ####[facility] , Stool bacteria identificatio n by cultureOrdered By: Lj Stanton on 08-15-2023 Bacteria identified Cx Nom (Stl) [facility] Thyroid Stimulating Hormoneo n 08-15-2023 TSH Qn 0.57 m[IU]/L Normal 0.45-5.33 [facility] Comment on above: Order Comment: Reaso n for Exam Alternating constipation and diarrhea Result Comment: PERF ORMED BY: [facility] [address] [place] [address] PATHOLOGIST HEALTH MANAGER ALBA SCHULTE M.D. Performed By: #### C USTOOL, CRP, ESR, TSH3 ####[facility] [id number] [address]#### OPEXAM, CELIAC, HIV SCREEN, CALPROTECT, ELASTASE STOOL ####[facility] , Thyrotropin [Units/volume] i n Serum or PlasmaOrdered By: Lj Stanton on 08-15-2023 TSH Qn 0.57 m[IU]/L 0.45-5.33 [facility] US breast LT limitedon 07-17 US breast LT limited [facility] [address] [place] [address] Ultrasound Report Signed Patient: Brian Sullivan MR#: [id number] 7 : 1995 Acct:[id number] Age/Sex: 27 / F ADM Date: 07/17/23 Loc: [facility] Room: Type: [facility] Attending Dr: Shaun Aviles DO Ordering [...] Cassandra Rubio M.D.07/17/2023 2:37 PM Dictation Location: [facility] Tech: Fe Bourne Transcribed By: SABA 07/17/23 143 Dictated By: Cassandra Rubio MD 07/17/23 1408 Signed By: 07/17/23 143 Normal [facility] C Urineon 07-03-2023 Bacteria [...] Locations R1: This test was performed at: [facility], [address] [place] [address], [facility]- , [place], [facility] Comment on above: Performed By: #### 2 [id number] #### [facility] [address] [place] [address] Discharge Instructionson Discharge Instructions [id number] #1.00CD:127 Normal [facility] Outside Recordson 07-02-2023 Outside Records [id number]# 1.00CD:127 Normal [facility] US Pelvis Non-OB Completeon 07-02-2023 US [...] TEDDY Technical Comments Transabdominal Ultrasound Performed Normal [facility] Auto Diffon 07-01-2023 Basophils/100 WBC (Bld) 0.2 % Normal 0.0-2.0 [facility] Comment on above: Order Comment: Order Added by Sal Expert. Performed By: #### 2 389768, 3125845, 8504372, [id number] #### [facility] [address] [place] [address] Basophils/Leukocytes Auto (Bld) [Pure # fraction] 0.0 E9/L Normal 0.0-0.2 [facility] Comment on above: Order Comment: Order Added by Sal Expert. Performed By: #### 2 422300, 7603452, 9146868, [id number] #### [facility] [address] [place] [address] Eosinophils/100 WBC (Bld) 0.0 % Normal 0.0-8.0 [facility] Comment on above: Order Comment: Order Added by Discern Expert. Performed By: #### 2 591204, 1993506, 8270366, [id number] #### [facility] [address] [place] [address] Eosinophils/Leukocyte s Auto (Bld) [Pure # fraction] 0.0 E9/L Normal 0.0-0.5 [facility] Comment on above: Order Comment: Order Added by Discern Expert. Performed By: #### 2 547545, 2838721, 5275034, [id number] #### [facility] [address] [place] [address] Lymphocytes/100 WBC (Bld) 16.2 % Normal 14.0-50.0 [facility] Comment on above: Order Comment: Order Added by Sal Expert. Performed By: #### 2 050953, 9680641, 4647749, [id number] #### [facility] [address] [place] [address] Lymphocytes/Leukocyte s Auto (Bld) [Pure # fraction] 1.5 E9/L Normal 1.0-4.0 [facility] Comment on above: Order Comment: Order Added by Sal Expert. Performed By: #### 2 703438, 2776853, 6897904, 58019281 #### [facility] [address] [place] [address] Monocytes/100 WBC (Bld) 6.9 % Normal 4.0-14.0 [facility] Comment on above: Order Comment: Order Added by Discern Expert. Performed By: #### 2 506688, 9389335, 8716146, 70350495 #### [facility] [address] [place] [address] Monocytes/Leukocytes Auto (Bld) [Pure # fraction] 0.7 E9/L Normal 0.2-1.0 [facility] Comment on above: Order Comment: Order Added by Sal Expert. Performed By: #### 2 701702, 5429980, 9816224, 11465270 #### [facility] [address] [place] [address] Neutrophils/100 WBC (Bld) 76.7 % High 36.0-75.0 [facility] Comment on above: Order Comment: Order Added by Discern Expert. Performed By: #### 2 535697, 0884409, 2357414, 46983756 #### [facility] [address] [place] [address] Neutrophils/Leukocyte s Auto (Bld) [Pure # fraction] 7.2 E9/L Normal 2.0-7.5 [facility] Comment on above: Order Comment: Order Added by Discern Expert. Performed By: #### 2 219111, 6967498, 0045104, 95771018 #### [facility] [address] [place] [address] BMPon 07-01-2023 Creatinine [Mass/Vol] 0.7 mg/dL Normal 0.5-1.[address] [facility] Comment on above: Performed By: #### 2 078174, 9431441, 2376727, 77794306 #### [facility] [address] [place] [address] Urea nitrogen [Mass/Vol] 9 mg/dL Normal 5-21 [facility] Comment on above: Performed By: #### 2 253441, 4119250, 7849442, 94177475 #### [facility] [address] [place] [address] Urea nitrogen/Creatinine [Mass ratio] 13 No Units Normal 10-20 [facility] Comment on above: Performed By: #### 2 671460, 6009773, 5161447, 80360510 #### [facility] [address] [place] [address] Anion gap [Moles/Vol] 5 mmol/L Low 6-[address] [facility] Comment on above: Performed By: #### 2 595183, 1033985, 9779048, 03209983 #### [facility] [address] [place] [address] Calcium [Mass/Vol] 8.6 mg/dL Low 8.9-11.1 [facility] Comment on above: Performed By: #### 2 469917, 7699200, 0807860, 98301957 #### [facility] [address] [place] [address] Chloride [Moles/Vol] 112 mmol/L High 101-111 [facility] Comment on above: Performed By: #### 2 302928, 0074563, 1824508, 59365841 #### [facility] [address] [place] [address] CO2 [Moles/Vol] 27 mmol/L Normal 21-31 [facility] Comment on above: Performed By: #### 2 013450, 0405271, 3086154, 39199022 #### [facility] [address] [place] [address] Glucose [Mass/Vol] 120 mg/dL Normal 55-199 [facility] Comment on above: Result Comment: If t his glucose result represents a fasting glucose, interpretation should refer to the following reference range: 55-99 mg/dL Performed By: #### 2 339023, 4505731, 8816374, 34636390 #### [facility] [address] [place] [address] Potassium [Moles/Vol] 3.8 mmol/L Normal 3.5-5.[address] [facility] Comment on above: Performed By: #### 2 122027, 6447366, 2729886, 82034918 #### [facility] [address] [place] [address] Sodium [Moles/Vol] 140 mmol/L Normal 135-145 [facility] Comment on above: Performed By: #### 2 257860, 8504048, 4463735, 71769818 #### [facility] [address] [place] [address] CBC w/ Auto Diffon 3 Erythrocyte distribution width (RBC) [Ratio] 14.8 % High 10.9-14.2 [facility] Comment on above: Performed By: #### 2 643071, 9043359, 9136991, 71938080 #### [facility] [address] [place] [address] Hematocrit (Bld) [Volume fraction] 38.0 % Normal 34.0-46.0 [facility] Comment on above: Performed By: #### 2 130385, 8741060, 1649283, 69136846 #### [facility] [address] [place] [address] Hemoglobin (Bld) [Mass/Vol] 12.8 g/dL Normal 12.0-16.0 [facility] Comment on above: Performed By: #### 2 259886, 3067152, 0642412, 29443444 #### [facility] [address] [place], [place] [address] MCH (RBC) [Entitic mass] 27.5 pg Normal 27.0-34.0 [facility] Comment on above: Performed By: #### 2 111703, 7800284, 6772206, 62563219 #### [facility] [address] [place] [address] MCHC (RBC) [Mass/Vol] 33.8 g/dL Normal 31.4-36.[address] [facility] Comment on above: Performed By: #### 2 310665, 4966374, 1584016, 65508071 #### [facility] [address] [place] [address] MCV (RBC) [Entitic vol] 81.3 fL Normal 80.0-100.0 [facility] Comment on above: Performed By: #### 2 514099, 9670776, 5859911, 38907214 #### [facility] [address] [place] [address] Platelet mean volume (Bld) [Entitic vol] 6.8 fL Normal 6.4-10.8 [facility] Comment on above: Performed By: #### 2 602011, 8439480, 3883379, 13636501 #### [facility] [address] [place], [place] [address] Platelets (Bld) [#/Vol] 240.0 E9/L Normal 150.0-500.0 [facility] Comment on above: Performed By: #### 2 642605, 1382494, 2178482, 60079095 #### [facility] [address] [place] [address] RBC (Bld) [#/Vol] 4.7 E12/L Normal 4.3-5.9 [facility] Comment on above: Performed By: #### 2 992247, 7420970, 2916555, 75290741 #### [facility] [address] [place] [address] WBC corrected for nucl RBC Auto (Bld) [#/Vol] 9.4 E9/L Normal 4.0-11.0 [facility] Comment on above: Performed By: #### 2 644857, 0401961, 0582936, 28442765 #### [facility] [address] [place] [address] CHEMISTRYOrdered By: SYSTEM SYSTEM on 07-01-2023 Anion gap [Moles/Vol] 5 mmol/L Low 6 - 16 mEq/L [facility] Calcium [Mass/Vol] 8.6 mg/dL Low 8.9 - 11. 1 mg/dL [facility] Chloride [Moles/Vol] 112 mmol/L High 101 - 1 11 mmol/L [facility] CO2 [Moles/Vol] 27 mmol/L Normal 21 - 31 mmol/L [facility] Creatinine [Mass/Vol] 0.7 mg/dL Normal 0.5 - 1.3 mg/dL [facility] GFR/1.73 sq M.predicted among non-blacks MDRD (S/P/Bld) [Vol rate/Area] 123 mL/min/1.73 m2 Normal >=59mL/min/1. 73 m2 [facility] Chem S Glucose [Mass/Vol] 120 mg/dL Normal 55 - 199 mg/dL [facility] Potassium [Moles/Vol] 3.8 mmol/L Normal 3.5 - 5.3 mmol/L [facility] Sodium [Moles/Vol] 140 mmol/L Normal 135 - 145 mmol/L [facility] Urea nitrogen [Mass/Vol] 9 mg/dL Normal 5 - 21 mg/dL [facility] Urea nitrogen/Creatinine [Mass ratio] 13 mg/mg Normal 10 - 20 [facility] Consent for Treatmenton 06-09 Consent for Treatment [id number]#1 .00CD:127 Normal [facility] ED Clinical Summaryon 2022 ED Clinical Summary [place] [id number] ED Clinical Summary Person Information [facility]: [facility] Age[facility] 27 Years : 1995 Sex: Female Language: Guatemalan PCP: SHWETA GONZALEZ Marital Status: Single Visit [...] 07/01/2023 21:05:09 07/01/2023 21:05:09 07/01/2023 21:05:09 ADDRESS: [address] [place] [id number] PHYS DOC NOTES: Addendum by Kendrick Zacarias MD on July 01, 2023 20:41:03 EDT MEDICAL INFORMATION: Prescriptions Given: New Medications [facility], [address] [facility] [place], [place] [id number], [phone] ondansetron (Zofran ODT 4 mg Tab-Dis) 1 Tablets By Mouth every 8 hours. Refills: 0. Printed Prescriptions acetaminophen-oxycodo ne (Percocet 5 mg-325 mg oral tablet) 1 Tablets By Mouth every 6 hours. Refills: 0. PATIENT EDUCATION INFORMATION: Instructions: Pelvic Pain, Female, Gaxs-ea-Bryi Follow up: With: Address: When: Ghanshyam NIETO [facility], [address] [facility] [place] [address] Business (1) In 3 days 07/04/2023 Comments: Call the office first thing Sunday morning With: Address: When: SHWETA GONZALEZ In 3 days DIAGNOSIS: 1:Pelvic pain Normal [facility] ED Note-Nursingon 07-01-2023 ED Note-Nursing at this time pt states she wishes to wait in the waiting room for her ride. pt states she did not drive. this nurse states pt is unable to drive d/t medication given per dec. pt verbalized understanding. Normal [facility] ED Note-Physicianon 07-01-20 ED Note-Physician Basic Information Time Seen: Mirna Mcmullen M.D. 07/01/2023 17:57 Chief Complaint Pt reports abd pain for one week. Pt went to [place] [facility] 2 days ago, given 2 ABX [...] She was seen 3 days ago at [facility] and CAT scan done. She was diagnosed with colitis and on Cipro and Flagyl given. The patient states she is getting worse. States she went back to [facility], she thinks yesterday and they did [...] getting an ultrasound of the pelvis at [facility]. The patient states she had temperature [...] and Complexity of Problems Differential Diagnosis: [] [facility] Data External documents reviewed: [] My EKG interpretation: [] My CT interpretation: [] My X-ray interpretation: [] My Ultrasound interpretation: [] Decision rules/scores evaluated: [] Discussed with: [] Treatment and Disposition ED Course: Presented with left pelvic pain. She has been seen at [facility] twice. The urine is negative. The urine shows no infection. The patient was given Toradol and Zofran. The care of the patient was transitioned to Dr. Zacraias upon shift change to follow-up with pelvic [...] CBC w/ Auto Diff Rapid COVID Antigen ([facility]) U Beta Hcg Qual UA With Cult [...] Leuk Est (more content not included)... Normal [facility] Comment on above: Result Comment: Elec [...] Follow these instructions at home: ? Take ohxt-gzk-nwsuypn and prescription medicines only as told by [...] Reviewed: 01/31/2022 Elsevier Patient Education ? 2022 [employer] Normal [facility] ED Patient Summaryon 023 ED Patient Summary [address] [address] Patient Discharge Instructions Person Information Name: BRIAN SULLIVAN Age: 27 Years Arrival Date: 07/01/2023 17:48:54 Discharge Diagnosis: 1:Pelvic pain Primary Care Physician: SHWETA GONZALEZ Provider Information Primary Provider: Mirna Mcmullen M.D. Advanced Scale Tank Operator:None The exam and treatment you received in the Emergency Department were for an urgent problem and are not intended as complete care. It is important that you follow up with a doctor, nurse practitioner, or physician?s optometrist assistant for ongoing care. If your symptoms become worse or you do not improve as expected and you are unable to reach your usual health care provider, you should return to the Emergency Department. We are available 24 hours a day. BRIAN SULLIVAN has been given the following list of patient education materials, prescriptions and follow-up instructions: Follow-up Instructions: With: Address: When: Ghanshyam [facility], [address] [place] [address] [place] [address] [facility] (1) In 3 days 07/04/2023 Comments: Call the office first thing Sunday morning With: Address: When: SHWETA GONZALEZ In 3 days In the event that this physician does not participate in your insurance network, please consult with your insurance company to find a nearby participating provider. Patient Education Materials: Pelvic Pain, Female, Woie-ur-Xybm A MESSAGE TO ALL PATIENTS REGARDING OPIOIDS PRESCRIPTION OPIOIDS: WHAT YOU NEED TO KNOW Prescription opioids can be used to help relieve ckqbmdnm-nu-xoqxug pain and are often prescribed following a [...] your hea (more content not included)... Normal [facility] HEMATOLOGYOrdered By: SYSTEM SYSTEM on 07-01-2023 [...] POS Ctl Pass (07/01/23 6:41 PM) Normal [place] Man Sero SARS-CoV+SARS-CoV-2 (COVID-19) Ag IA.rapid Ql (Resp) Not Detected (07/01/23 6:41 PM) Normal Not Detected [place] Rapid COVID Antigen ([facility])on 07-01-2023 Rapid COV Int NEG Ctl Pass Normal [facility] Comment on above: Performed By: #### 2 [id number] #### [facility] [address] [place] [address] Rapid COV Int POS Ctl Pass Normal [facility] Comment on above: Performed By: #### 2 [id number] #### [facility] [address] [place] [address] SARS-CoV+SARS-CoV-2 (COVID-19) Ag IA.rapid Ql (Resp) Not detected Normal Not Detected [facility] Comment on above: Result Comment: The [employer]? System for Rapid Detection of SARS-CoV-2 is [...] or revoked sooner. Performed By: #### 2 [id number] #### [facility] [address] [place] [address] SEROLOGYOrdered By: Lambert For ster on 07-01-2023 HCG.beta subunit (U) [Moles/Vol] Negative Normal [place] U BetaHcg Qualon 07-01-2023 HCG.beta subunit (U) [Moles/Vol] Negative Normal [facility] Comment on above: Performed By: #### 2 [id number] #### [facility] [address] [place] [address] UA With Cult Reflexon 2022 Bilirubin Ql (U) Negative Normal Negative [facility] Comment on above: Order Comment: Urina ry Catheter Insertion triggered Urinalysis With Culture Reflex order by discern. Performed By: #### 2 [id number] #### [facility] [address] [place] [address] Clarity (U) CLEAR Normal Clear [facility] Comment on above: Order Comment: Urina ry Catheter Insertion triggered Urinalysis With Culture Reflex order by discern. Performed By: #### 2 [id number] #### [facility] [address] [place] [address] Color (U) YELLOW Normal Yellow [facility] Comment on above: Order Comment: Urina ry Catheter Insertion triggered Urinalysis With Culture Reflex order by discern. Performed By: #### 2 [id number] #### [facility] [address] [place] [address] Crystals LM Ql (Urine sed) Present Normal [facility] Comment on above: Order Comment: Urina ry Catheter Insertion triggered Urinalysis With Culture Reflex order by discern. Performed By: #### 2 [id number] #### [facility] [address] [place] [address] Epithelial cells.squamous LM.HPF (Urine sed) [#/Area] 0-2 Normal 0-2 [facility] Comment on above: Order Comment: Urina ry Catheter Insertion triggered Urinalysis With Culture Reflex order by discern. Performed By: #### 2 [id number] #### [facility] [address] [place] [address] Glucose Test strip (U) [Mass/Vol] Negative Normal Negative [facility] Comment on above: Order Comment: Urina ry Catheter Insertion triggered Urinalysis With Culture Reflex order by discern. Performed By: #### 2 [id number] #### [facility] [address] [place] [address] Hemoglobin Ql (U) Negative Normal Negative [facility] Comment on above: Order Comment: Urina ry Catheter Insertion triggered Urinalysis With Culture Reflex order by discern. Performed By: #### 2 [id number] #### [facility] [address] [place] [address] Ketones (U) [Mass/Vol] Negative Normal Negative [facility] Comment on above: Order Comment: Urina ry Catheter Insertion triggered Urinalysis With Culture Reflex order by discern. Performed By: #### 2 [id number] #### [facility] [address] [place] [address] [place].plasma/Lithiu m.RBC (Bld) [Mass ratio] 0-3 Normal 0-3 [facility] Comment on above: Order Comment: Urina ry Catheter Insertion triggered Urinalysis With Culture Reflex order by discern. Performed By: #### 2 [id number] #### [facility] [address] [place] [address] Nitrite Ql (U) Negative Normal Negative [facility] Comment on above: Order Comment: Urina ry Catheter Insertion triggered Urinalysis With Culture Reflex order by discern. Performed By: #### 2 [id number] #### [facility] [address] [place] [address] pH (U) 6.5 [pH] Invalid Interpretation Code 5.0-9.0 [facility] Comment on above: Order Comment: Urina ry Catheter Insertion triggered Urinalysis With Culture Reflex order by discern. Performed By: #### 2 [id number] #### [facility] [address] [place] [address] Protein (U) [Mass/Vol] Negative Normal Negative [facility] Comment on above: Order Comment: Urina ry Catheter Insertion triggered Urinalysis With Culture Reflex order by discern. Performed By: #### 2 [id number] #### [facility] [address] [place] [address] Specific gravity (U) [Rel density] 1.020 Invalid Interpretation Code 1.005-1.030 [facility] Comment on above: Order Comment: Urina ry Catheter Insertion triggered Urinalysis With Culture Reflex order by discern. Performed By: #### 2 [id number] #### [facility] [address] [place] [address] Type of Urine collection method Clean Catch Normal [facility] Comment on above: Order Comment: Urina ry Catheter Insertion triggered Urinalysis With Culture Reflex order by discern. Performed By: #### 2 [id number] #### [facility] [address] [place] [address] Urobilinogen Qn (U) 0.2 {Mary Ann'U}/dL Normal 0.0-1.0 [facility] Comment on above: Order Comment: Urina ry Catheter Insertion triggered Urinalysis With Culture Reflex order by discern. Performed By: #### 2 [id number] #### [facility] [address] [place] [address] WBC Auto Ql (U) Negative Normal Negative [facility] Comment on above: Order Comment: Urina ry Catheter Insertion triggered Urinalysis With Culture Reflex order by discern. Performed By: #### 2 [id number] #### [facility] [address] [place] [address] WBC LM.HPF (Urine sed) [#/Area] 0-5 Normal 0-5 [facility] Comment on above: Order Comment: Urina ry Catheter Insertion triggered Urinalysis With Culture Reflex order by discern. Performed By: #### 2 [id number] #### [facility] [address] [place] [address] Bacteria LM Ql (Urine sed) TRACE Normal Trace [facility] Comment on above: Performed By: #### 2 [id number] #### [facility] [address] [place] [address] Bilirubin Ql (U) Negative Normal Negative [facility] Comment on above: Performed By: #### 2 [id number] #### [facility] [address] [place] [address] Clarity (U) CLEAR Normal Clear [facility] Comment on above: Performed By: #### 2 [id number] #### [facility] [address] [place] [address] Color (U) YELLOW Normal Yellow [facility] Comment on above: Performed By: #### 2 [id number] #### [facility] [address] [place] [address] Crystals LM Ql (Urine sed) Present Normal [facility] Comment on above: Performed By: #### 2 [id number] #### [facility] [address] [place] [address] Epithelial cells.squamous LM.HPF (Urine sed) [#/Area] 3-4 Normal 0-2 [facility] Comment on above: Performed By: #### 2 [id number] #### [facility] [address] [place] [address] Glucose Test strip (U) [Mass/Vol] Negative Normal Negative [facility] Comment on above: Performed By: #### 2 [id number] #### [facility] [address] [place] [address] Hemoglobin Ql (U) Negative Normal Negative [facility] Comment on above: Performed By: #### 2 [id number] #### [facility] [address] [place] [address] Ketones (U) [Mass/Vol] Negative Normal Negative [facility] Comment on above: Performed By: #### 2 [id number] #### [facility] [address] [place] [address] [place].plasma/Lithiu m.RBC (Bld) [Mass ratio] 0-3 Normal 0-3 [facility] Comment on above: Performed By: #### 2 [id number] #### [facility] [address] [place] [address] Mucus Ql (Urine sed) 2+ Normal [facility] Comment on above: Performed By: #### 2 [id number] #### [facility] [address] [place] [address] Nitrite Ql (U) Negative Normal Negative [facility] Comment on above: Performed By: #### 2 [id number] #### [facility] [address] [place] [address] pH (U) 7.5 [pH] Invalid Interpretation Code 5.0-9.0 [facility] Comment on above: Performed By: #### 2 [id number] #### [facility] [address] [place] [address] Protein (U) [Mass/Vol] Negative Normal Negative [facility] Comment on above: Performed By: #### 2 [id number] #### [facility] [address] [place] [address] Specific gravity (U) [Rel density] 1.020 Invalid Interpretation Code 1.005-1.030 [facility] Comment on above: Performed By: #### 2 [id number] #### [facility] [address] [place] [address] Type of Urine collection method Clean Catch Normal [facility] Comment on above: Performed By: #### 2 [id number] #### [facility] [address] [place] [address] Urobilinogen Qn (U) 0.2 {Mary Ann'U}/dL Normal 0.0-1.0 [facility] Comment on above: Performed By: #### 2 [id number] #### [facility] [address] [place] [address] WBC Auto Ql (U) 1+ Abnormal Negative [facility] Comment on above: Performed By: #### 2 [id number] #### [facility] [address] [place] [address] WBC LM.HPF (Urine sed) [#/Area] 0-5 Normal 0-5 [facility] Comment on above: Performed By: #### 2 [id number] #### [facility] [address] [place] [address] URINALYSISOrdered By: Lambert fernando on 07-01-2023 Bilirubin Ql (U) Negative (07/01/23 7:07 PM) Normal Negative [place] UA Auto SS Clarity (U) Clear (07/01/23 [...] PM) Normal Negative [facility] UA Auto SS [place].plasma/Lithiu m.RBC (Bld) [Mass ratio] 0-3 /HPF Normal [...] [facility] UA Auto SS Urobilinogen Qn (U) 0.5255650 {Mary Ann'U}/dL Normal 0.0 - 1.0 EU/dL [...] PM) Normal Negative [facility] UA Auto SS [place].plasma/Lithiu m.RBC (Bld) [Mass ratio] 0-3 /HPF Normal [...] [facility] UA Auto SS Urobilinogen Qn (U) 0.4320395 {Mary Ann'U}/dL Normal 0.0 - 1.0 EU/dL [facility] UA Auto SS WBC Auto Ql (U) 1+ *ABN* (07/01/23 6:14 PM) Invalid Interpretation Code Negative [facility] UA Auto SS WBC LM.HPF (Urine sed) [#/Area] 0-5 /HPF Normal 0-5/HPF [facility] UA Auto SS eGFRon 07-01-2023 GFR/1.73 sq M.predicted among non-blacks MDRD (S/P/Bld) [Vol rate/Area] 123 mL/min/1.73 m2 Normal >=59 [facility] Comment on above: Order Comment: Order added by Discern Expert. Result Comment: [employer] Operator adama kidney disease could be indicated at eGFR's of less than 60 mL/min/1.73m2. Kidney failure is indicated at less than 15 mL/min/1.73m2. Performed By: #### 2 [id number] #### [facility] [address] [place] [address] US PELVIS AND TRANSVAGon US PELVIS AND [...] ILENE MERCADO Date: 2022-07-18 21:34 Normal [facility] CBC AUTO DIFFon 07-06-2022 BASO # 0.0 103/ul Normal 0.0-0.1 [facility] Comment on above: Performed By: #### E RUR, UMICRO #### [facility] [address] [place] [address] Dr. Hans Muniz Basophils/100 WBC (Bld) 0.2 % Normal 0.2-2.0 [facility] Comment on above: Performed By: #### SHAWN RODRÍGUEZRO #### [facility] [address] [place] [address] Dr. Hans Muniz EO # 0.2 103/ul Normal 0.0-0.7 [facility] Comment on above: Performed By: #### SHAWN RODRÍGUEZRO #### [facility] [address] [place] [address] Dr. Hans Muniz Eosinophils/100 WBC (Bld) 2.3 % Normal 0.9-7.0 [facility] Comment on above: Performed By: #### SHAWN RODRÍGUEZRO #### [facility] [address] [place] [address] Dr. Hans Muniz Erythrocyte distribution width (RBC) [Ratio] 13.0 % Normal 11.0-15.0 [facility] Comment on above: Performed By: #### SHAWN RODRÍGUEZRO #### [facility] [address] [place] [address] Dr. Hans Muniz Hematocrit (Bld) [Volume fraction] 45.7 % Normal 36.0-48.0 [facility] Comment on above: Performed By: #### SHAWN RODRÍGUEZRO #### [facility] [address] [place] [address] Dr. Hans Muniz Hemoglobin (Bld) [Mass/Vol] 14.7 g/dL Normal 12.0-16.0 [facility] Comment on above: Performed By: #### SHAWN RODRÍGUEZRO #### [facility] [address] [place] [address] Dr. Hans Muniz IG # 0.03 10e3/ul Normal 0.00-0.03 [facility] Comment on above: Performed By: #### SHAWN RODRÍGUEZRO #### [facility] [address] [place] [address] Dr. Hans Muniz IG % 0.4 % Normal 0.0-0.5 [facility] Comment on above: Performed By: #### YANE RODRÍGUEZ #### [facility] [address] [place] [address] Dr. Hans Muniz LYMPH # 1.9 103/ul Normal 1.2-3.8 [facility] Comment on above: Performed By: #### SHAWN RDORÍGUEZRO #### [facility] [address] [place] [address] Dr. Hans Muniz Lymphocytes/100 WBC (Bld) 23.0 % Normal 20.5-60.0 [facility] Comment on above: Performed By: #### SHAWN RODRÍGUEZRO #### [facility] [address] [place] [address] Dr. Hans Muniz MANUAL DIFF REQ NO Normal [facility] Comment on above: Performed By: #### SHAWN RODRÍGUEZRO #### [facility] [address] [place] [address] Dr. Hans Muniz MCH (RBC) [Entitic mass] 27.1 pg Normal 26.7-34.0 [facility] Comment on above: Performed By: #### SHAWN RODRÍGUEZRO #### [facility] [address] [place] [address] Dr. Hans Muniz MCHC (RBC) [Mass/Vol] 32.2 g/dL Normal 29.9-35.2 [facility] Comment on above: Performed By: #### SHAWN RODRÍGUEZRO #### [facility] [address] [place] [address] Dr. Hans Muniz MCV (RBC) [Entitic vol] 84.3 fL Normal 81.0-99.0 [facility] Comment on above: Performed By: #### SHAWN RODRÍGUEZRO #### [facility] [address] [place] [address] Dr. Hans Muniz MONO # 0.6 103/ul Normal 0.3-0.8 [facility] Comment on above: Performed By: #### YANE RODRÍGUEZ #### [facility] [address] [place] [address] Dr. Hans Muniz Monocytes/100 WBC (Bld) 7.1 % Normal 1.7-12.0 [facility] Comment on above: Performed By: #### Lora SHIRLEY UMICRO #### [facility] [address] [place] [address] Dr. Hans Muniz NEUT # 5.6 103/ul Normal 1.4-6.5 [facility] Comment on above: Performed By: #### Lora SHIRLEY UMICRO #### [facility] [address] [place] [address] Dr. Hans Muniz Neutrophils/100 WBC (Bld) 67.0 % Normal 43.0-75.0 [facility] Comment on above: Performed By: #### Lora SHIRLEY UMICRO #### [facility] [address] [place] [address] Dr. Hans Muniz Platelet mean volume (Bld) [Entitic vol] 8.5 fL Critically low 9.5-13.5 [facility] Comment on above: Performed By: #### Lora SHIRLEY UMICRO #### [facility] [address] [place] [address] Dr. Hans Muniz PLT 307 103/ul Normal 150-450 [facility] Comment on above: Performed By: #### Lora SHIRLEY UMICRO #### [facility] [address] [place] [address] Dr. Hans Muniz RBC 5.42 106/ul Critically high 4.20-5.40 [facility] Comment on above: Performed By: #### Lora SHIRLEY UMICRO #### [facility] [address] [place] [address] Dr. Hans Muniz WBC 8.4 103/ul Normal 4.0-11.0 [facility] Comment on above: Performed By: #### Lora SHIRLEY UMICRO #### [facility] [address] [place] [address] ABD/PELV Vimal Fallon [...] ILENE MERCADO Date: 2022-07-06 15:46 Normal [facility] Covid-19 PCR (CVDTB)on 06-09 SARS-CoV-2 (COVID-19) RNA BALTAZAR+probe Ql (Unsp spec) Not detected Normal NOT DETECTED [facility] Comment on above: Result Comment: When [...] for this test is supported by the Melt Superintendant of Health and Human Service's declaration that [...] used). Performed By: #### E RURYANE #### [facility] [address] [place] [address] Dr. Hans Muniz ER URINE PROFILEon 2 Bilirubin Ql (U) Negative Normal NEGATIVE [facility] Comment on above: Performed By: #### E RUR #### [facility] [address] [place] [address] Dr. Hans Muniz Clarity (U) CLEAR Normal CLEAR [facility] Comment on above: Performed By: #### E RUR #### [facility] [address] [place] [address] Dr. Hans Muniz Color (U) YELLOW Normal YELLOW [facility] Comment on above: Performed By: #### E RUR #### [facility] [address] [place] [address] Dr. Hans Muniz ERURobert A micrscopic examination will be performed if indicated. Normal [facility] Comment on above: Performed By: #### E RUR #### [facility] [address] [place] [address] Dr. Hans Muniz Glucose Ql (U) Negative Normal NEGATIVE [facility] Comment on above: Performed By: #### E RUR #### [facility] [address] [place] [address] Dr. Hans Muniz Hemoglobin Ql (U) Negative Normal NEGATIVE [facility] Comment on above: Performed By: #### E RUR #### [facility] [address] [place] [address] Dr. Hans Muniz Ketones Ql (U) Negative Normal NEGATIVE [facility] Comment on above: Performed By: #### E RUR #### [facility] [address] [place] [address] Dr. Hans Muniz LEUKOCYTES Negative Normal NEGATIVE [facility] Comment on above: Performed By: #### E RUR #### [facility] [address] [place] [address] Dr. Hans Muniz Nitrite Ql (U) Negative Normal NEGATIVE [facility] Comment on above: Performed By: #### E RUR #### [facility] [address] [place] [address] Dr. Hans Muniz pH (U) 7.0 [pH] Normal 5-9 [facility] Comment on above: Performed By: #### E RUR #### [facility] [address] [place] [address] Dr. Hans Muniz SPEC GRAVITY 1.020 Normal 1.005-<=1.025 [facility] Comment on above: Performed By: #### E RUR #### [facility] [address] [place] [address] Dr. Hans Muniz UA PROTEIN Negative Normal NEGATIVE/ TRACE [facility] Comment on above: Performed By: #### E RUR #### [facility] [address] [place] [address] Dr. Hans Muniz UR MICRO IND NOT INDICATED Normal [facility] Comment on above: Performed By: #### E RUR #### [facility] [address] [place] [address] Dr. Hans Muniz Urobilinogen Qn (U) 0.2 {Mary Ann'U}/dL Normal 0.2 - 1. 0 [facility] Comment on above: Performed By: #### E RUR #### [facility] [address] [place] [address] Dr. Hans Muniz LACTATE/LACTIC ACIDon 2021 Lactate [Moles/Vol] 1.7 mmol/L Normal 0.4-1.9 [facility] Comment on above: Performed By: #### SHAWN RODRÍGUEZRO #### [facility] [address] [place] [address] Dr. Hans Muniz PROF CHEM 8 (BAS METB)on Anion gap [Moles/Vol] 12.3 mmol/L Normal [facility] Comment on above: Performed By: #### SHAWN RODRÍGUEZRO #### [facility] [address] [place] [address] Dr. Hans Muniz Calcium [Mass/Vol] 9.2 mg/dL Normal 8.5-10.1 [facility] Comment on above: Performed By: #### SHAWN RODRÍGUEZRO #### [facility] [address] [place] [address] Dr. Hans Muniz Chloride [Moles/Vol] 101 mmol/L Normal 98-107 [facility] Comment on above: Performed By: #### SHAWN RODRÍGUEZRO #### [facility] [address] [place] [address] Dr. Hans Muniz CO2 [Moles/Vol] 26.7 mmol/L Normal 21.0-32.0 [facility] Comment on above: Performed By: #### SHAWN RODRÍGUEZRO #### [facility] [address] [place] [address] Dr. Hans Muniz Creatinine [Mass/Vol] 0.75 mg/dL Normal 0.55-1.02 [facility] Comment on above: Performed By: #### SHAWN RODRÍGUEZRO #### [facility] [address] [place] [address] Dr. Hans Muniz EGFR-AF PARAGUAYAN >60 Normal >=60 [facility] Comment on above: Performed By: #### SHAWN RODRÍGUEZRO #### [facility] [address] [place] [address] Dr. Hans Muniz EGFR-NON AF PARAGUAYAN >60 Normal >=60 [facility] Comment on above: Performed By: #### E RUR, UMICRO #### [facility] [address] [place] [address] Dr. Hans Muniz Glucose [Mass/Vol] 96 mg/dL Normal 74-106 [facility] Comment on above: Performed By: #### Lora SHIRLEY, UMICRO #### [facility] [address] [place] [address] Dr. Hans Muniz Potassium [Moles/Vol] 4.0 mmol/L Normal 3.5-5.1 [facility] Comment on above: Performed By: #### Lora SHIRLEY, UMICRO #### [facility] [address] [place] [address] Dr. Hans Muniz Sodium [Moles/Vol] 136 mmol/L Normal 136-145 [facility] Comment on above: Performed By: #### Lora SHIRLEY, UMICRO #### [facility] [address] [place] [address] Dr. Hans Muniz Urea nitrogen [Mass/Vol] 9.0 mg/dL Normal 7.0-18.0 [facility] Comment on above: Performed By: #### Lora SHIRLEY, UMICRO #### [facility] [address] [place] [address] Dr. Hans Muniz Urea nitrogen/Creatinine [Mass ratio] 12.0 mg/mg Normal [facility] Comment on above: Performed By: #### Lora SHIRLEY, UMICRO #### [facility] [address] [place] [address] Dr. Hans Muniz CULTURE URINEon 07-04-2022 CULTURE [...] S F Tetracycline >=16 R F Normal [facility] Comment on above: Performed By: #### E YANE SHIRLEY #### [facility] [address] [address] [address] Hans Muniz CBC AUTO DIFFon 07-02-2022 BASO # 0.0 103/ul Normal 0.0-0.1 [facility] Comment on above: Performed By: #### C BC #### [facility] [address] [address] [address] Hans Muniz Basophils/100 WBC (Bld) 0.3 % Normal 0.2-2.0 [facility] Comment on above: Performed By: #### C BC #### [facility] [address] [address] [address] Hans Muniz EO # 0.1 103/ul Normal 0.0-0.7 [facility] Comment on above: Performed By: #### C BC #### [facility] [address] [place] [address] Dr. Hans Muniz Eosinophils/100 WBC (Bld) 1.2 % Normal 0.9-7.0 [facility] Comment on above: Performed By: #### C BC #### [facility] [address] [address] [address] Hans Muniz Erythrocyte distribution width (RBC) [Ratio] 13.1 % Normal 11.0-15.0 [facility] Comment on above: Performed By: #### C BC #### [facility] [address] [place] [address] Dr. Hans Muniz Hematocrit (Bld) [Volume fraction] 37.6 % Normal 36.0-48.0 [facility] Comment on above: Performed By: #### C BC #### [facility] [address] [address] [address] Hans Muniz Hemoglobin (Bld) [Mass/Vol] 12.4 g/dL Normal 12.0-16.0 [facility] Comment on above: Performed By: #### C BC #### [facility] [address] [address] [address] Hans Muniz IG # 0.02 10e3/ul Normal 0.00-0.03 [facility] Comment on above: Performed By: #### C BC #### [facility] [address] [place] [address] Dr. Hans Muniz IG % 0.2 % Normal 0.0-0.5 [facility] Comment on above: Performed By: #### C BC #### [facility] [address] [place] [address] Dr. Hans Muniz LYMPH # 3.3 103/ul Normal 1.2-3.8 [facility] Comment on above: Performed By: #### C BC #### [facility] [address] [place] [address] Dr. Hans Muniz Lymphocytes/100 WBC (Bld) 34.8 % Normal 20.5-60.0 [facility] Comment on above: Performed By: #### C BC #### [facility] [address] [place] [address] Dr. Hans Muniz MANUAL DIFF REQ NO Normal [facility] Comment on above: Performed By: #### C BC #### [facility] [address] [place] [address] Dr. Hans Muniz MCH (RBC) [Entitic mass] 27.8 pg Normal 26.7-34.0 [facility] Comment on above: Performed By: #### C BC #### [facility] [address] [place] [address] Dr. Hans Muniz MCHC (RBC) [Mass/Vol] 33.0 g/dL Normal 29.9-35.2 [facility] Comment on above: Performed By: #### C BC #### [facility] [address] [place] [address] Dr. Hans Muniz MCV (RBC) [Entitic vol] 84.3 fL Normal 81.0-99.0 [facility] Comment on above: Performed By: #### C BC #### [facility] [address] [place] [address] Dr. Hans Muniz MONO # 0.6 103/ul Normal 0.3-0.8 [facility] Comment on above: Performed By: #### C BC #### [facility] [address] [place] [address] Dr. Hans Muniz Monocytes/100 WBC (Bld) 6.8 % Normal 1.7-12.0 [facility] Comment on above: Performed By: #### C BC #### [facility] [address] [address] [address] Hasn Muniz NEUT # 5.3 103/ul Normal 1.4-6.5 [facility] Comment on above: Performed By: #### C BC #### [facility] [address] [place] [address] Dr. Hans Muniz Neutrophils/100 WBC (Bld) 56.7 % Normal 43.0-75.0 [facility] Comment on above: Performed By: #### C BC #### [facility] [address] [place] [address] Dr. Hans Muniz Platelet mean volume (Bld) [Entitic vol] 8.9 fL Critically low 9.5-13.5 [facility] Comment on above: Performed By: #### C BC #### [facility] [address] [place] [address] Dr. Hans Muniz PLT 286 103/ul Normal 150-450 [facility] Comment on above: Performed By: #### C BC #### [facility] [address] [place] [address] Dr. Hans Muniz RBC 4.46 106/ul Normal 4.20-5.40 [facility] Comment on above: Performed By: #### C BC #### [facility] [address] [place] [address] Dr. Hans Muniz WBC 9.4 103/ul Normal 4.0-11.0 [facility] Comment on above: Performed By: #### C BC #### [facility] [address] [place] [address] Dr. Hans Muniz ER URINE PROFILEon 2 Bilirubin Ql (U) Negative Normal NEGATIVE [facility] Comment on above: Performed By: #### E YANE SHIRLEY #### [facility] [address] [place] [address] Dr. Hans Muniz Clarity (U) CLEAR Normal CLEAR [facility] Comment on above: Performed By: #### Lora SHRILEY UMICRO #### [facility] [address] [place] [address] Dr. Hans Muniz Color (U) LT. YELLOW Normal YELLOW [facility] Comment on above: Performed By: #### Lora SHIRLEY UMICRO #### [facility] [address] [place] [address] Dr. Hans SCHAEFER A micrscopic examination will be performed if indicated. Normal [facility] Comment on above: Performed By: #### Lora SHIRLEY UMICRO #### [facility] [address] [place] [address] Dr. Hans Muniz Glucose Ql (U) Negative Normal NEGATIVE [facility] Comment on above: Performed By: #### Lora SHIRLEY UMICRO #### [facility] [address] [place] [address] Dr. Hans Muniz Hemoglobin Ql (U) Negative Normal NEGATIVE [facility] Comment on above: Performed By: #### Lora SHIRLEY UMICRO #### [facility] [address] [place] [address] Dr. Hans Muniz Ketones Ql (U) Negative Normal NEGATIVE [facility] Comment on above: Performed By: #### Lora SHIRLEY UMICRO #### [facility] [address] [place] [address] Dr. Hans Muniz LEUKOCYTES SMALL Abnormal NEGATIVE [facility] Comment on above: Performed By: #### Lora SHIRLEY UMICRO #### [facility] [address] [place] [address] Dr. Hans Muniz Nitrite Ql (U) Negative Normal NEGATIVE [facility] Comment on above: Performed By: #### Lora SHIRLEY UMICRO #### [facility] [address] [place] [address] Dr. Hans Muniz pH (U) 6.0 [pH] Normal 5-9 [facility] Comment on above: Performed By: #### SHAWN RODRÍGUEZRO #### [facility] [address] [place] [address] Dr. Hans Muniz SPEC GRAVITY 1.020 Normal 1.005-<=1.025 [facility] Comment on above: Performed By: #### Lora SHIRLEY UMICRO #### [facility] [address] [place] [address] Dr. Hans Muniz UA PROTEIN Negative Normal NEGATIVE/ TRACE [facility] Comment on above: Performed By: #### SHAWN RODRÍGUEZRO #### [facility] [address] [place] [address] Dr. Hans Muniz UR MICRO IND INDICATED Normal [facility] Comment on above: Performed By: #### SHAWN RODRÍGUEZRO #### [facility] [address] [place] [address] Dr. Hans Muniz Urobilinogen Qn (U) 0.2 {Mary Ann'U}/dL Normal 0.2 - 1. 0 [facility] Comment on above: Performed By: #### Lora SHIRLEY UMICRO #### [facility] [address] [place] [address] Dr. Hans Muniz PROF CHEM 8 (BAS METB)on Anion gap [Moles/Vol] 11.7 mmol/L Normal [facility] Comment on above: Performed By: #### G IPANEL #### [facility] [address] [place] [address] Dr. Hans Muniz Calcium [Mass/Vol] 8.2 mg/dL Critically low 8.5-10.1 [facility] Comment on above: Performed By: #### G IPANEL #### [facility] [address] [place] [address] Dr. Hans Muniz Chloride [Moles/Vol] 106 mmol/L Normal 98-107 [facility] Comment on above: Performed By: #### G IPANEL #### [facility] [address] [place] [address] Dr. Hans Muniz CO2 [Moles/Vol] 23.6 mmol/L Normal 21.0-32.0 [facility] Comment on above: Performed By: #### G IPANEL #### [facility] [address] [address] [address] Hans Muniz Creatinine [Mass/Vol] 0.83 mg/dL Normal 0.55-1.02 [facility] Comment on above: Performed By: #### G IPANEL #### [facility] [address] [address] [address] Hans Muniz EGFR-AF PARAGUAYAN >60 Normal >=60 [facility] Comment on above: Performed By: #### G IPANEL #### [facility] [address] [address] [address] Hans Muniz EGFR-NON AF PARAGUAYAN >60 Normal >=60 [facility] Comment on above: Performed By: #### G IPANEL #### [facility] [address] [place] [address] Dr. Hans Muniz Glucose [Mass/Vol] 96 mg/dL Normal 74-106 [facility] Comment on above: Performed By: #### G IPANEL #### [facility] [address] [address] [address] Hans Muniz Potassium [Moles/Vol] 3.3 mmol/L Critically low 3.5-5.1 [facility] Comment on above: Performed By: #### G IPANEL #### [facility] [address] [address] [address] Hans Muniz Sodium [Moles/Vol] 138 mmol/L Normal 136-145 [facility] Comment on above: Performed By: #### G IPANEL #### [facility] [address] [address] [address] Hans Muniz Urea nitrogen [Mass/Vol] 3.0 mg/dL Critically low 7.0-18.0 [facility] Comment on above: Performed By: #### G IPANEL #### [facility] [address] [address] [address] Hans Muniz Urea nitrogen/Creatinine [Mass ratio] 3.6 mg/mg Normal [facility] Comment on above: Performed By: #### G IPANEL #### [facility] [address] [place] [address] Dr. Hans Muniz URINE MICROSCOPIC ONLYon BACTERIA SMALL Abnormal NONE SEEN [facility] Comment on above: Performed By: #### Lora SHIRLEY UMICRO #### [facility] [address] [place] [address] Dr. Hans Muniz Bacteria identified Cx Nom (U) INDICATED Normal [facility] Comment on above: Performed By: #### Lora SHIRLEY UMICRO #### [facility] [address] [place] [address] Dr. Hans Muniz CAST NONE SEEN Normal NONE SEEN [facility] Comment on above: Performed By: #### Lora SHIRLEY UMICRO #### [facility] [address] [place] [address] Dr. Hans Muniz Crystals LM Nom (Urine sed) NONE SEEN Normal NONE SEEN [facility] Comment on above: Performed By: #### Lora SHIRLEY UMICRO #### [facility] [address] [place] [address] Dr. Hans Muniz Epithelial cells LM Ql (Urine sed) FEW Abnormal NONE SEEN /RARE [facility] Comment on above: Performed By: #### Lora SHIRLEY UMICRO #### [facility] [address] [place] [address] Dr. Hans Muniz MUCOUS TRACE Abnormal NONE SEEN [facility] Comment on above: Performed By: #### Lora SHIRLEY UMICRO #### [facility] [address] [place] [address] Dr. Hans Muniz RBC 2-5 Abnormal 0-2 [facility] Comment on above: Performed By: #### Lora SHIRLEY UMICRO #### [facility] [address] [place] [address] Dr. Hans Muniz WBC 20-50 Abnormal NONE SEEN [facility] Comment on above: Performed By: #### Lora SHIRLEY UMICRO #### [facility] [address] [place] [address] Dr. Hans Muniz CBC AUTO DIFFon 06-30-2022 BASO # 0.1 103/ul Normal 0.0-0.1 [facility] Comment on above: Performed By: #### YANE RODRÍGUEZ #### [facility] [address] [place] [address] Dr. Hans Muniz Basophils/100 WBC (Bld) 0.7 % Normal 0.2-2.0 [facility] Comment on above: Performed By: #### SHAWN RODRÍGUEZRO #### [facility] [address] [place] [address] Dr. Hans Muniz EO # 0.2 103/ul Normal 0.0-0.7 [facility] Comment on above: Performed By: #### SHAWN RODRÍGUEZRO #### [facility] [address] [place] [address] Dr. Hans Muniz Eosinophils/100 WBC (Bld) 2.8 % Normal 0.9-7.0 [facility] Comment on above: Performed By: #### SHAWN RODRÍGUEZRO #### [facility] [address] [place] [address] Dr. Hans Muniz Erythrocyte distribution width (RBC) [Ratio] 13.0 % Normal 11.0-15.0 [facility] Comment on above: Performed By: #### SHAWN RODRÍGUEZRO #### [facility] [address] [place] [address] Dr. Hans Muniz Hematocrit (Bld) [Volume fraction] 40.8 % Normal 36.0-48.0 [facility] Comment on above: Performed By: #### SHAWN RODRÍGUEZRO #### [facility] [address] [place] [address] Dr. Hans Muniz Hemoglobin (Bld) [Mass/Vol] 13.3 g/dL Normal 12.0-16.0 [facility] Comment on above: Performed By: #### SHAWN RODRÍGUEZRO #### [facility] [address] [place] [address] Dr. Hans Muniz IG # 0.03 10e3/ul Normal 0.00-0.03 [facility] Comment on above: Performed By: #### E RUR, UMICRO #### [facility] [address] [place] [address] Dr. Hans Muniz IG % 0.4 % Normal 0.0-0.5 [facility] Comment on above: Performed By: #### E JENNIFERR, UMICRO #### [facility] [address] [place] [address] Dr. Hans Muniz LYMPH # 3.1 103/ul Normal 1.2-3.8 [facility] Comment on above: Performed By: #### E RUR, UMICRO #### [facility] [address] [place] [address] Dr. Hans Muniz Lymphocytes/100 WBC (Bld) 43.3 % Normal 20.5-60.0 [facility] Comment on above: Performed By: #### E FERN, UMICRO #### [facility] [address] [place] [address] Dr. Hans Muniz MANUAL DIFF REQ NO Normal [facility] Comment on above: Performed By: #### E FERN, UMICRO #### [facility] [address] [place] [address] Dr. Hans Muniz MCH (RBC) [Entitic mass] 27.5 pg Normal 26.7-34.0 [facility] Comment on above: Performed By: #### E FERN, UMICRO #### [facility] [address] [place] [address] Dr. Hans Muniz MCHC (RBC) [Mass/Vol] 32.6 g/dL Normal 29.9-35.2 [facility] Comment on above: Performed By: #### E RUR, UMICRO #### [facility] [address] [place] [address] Dr. Hans Muniz MCV (RBC) [Entitic vol] 84.5 fL Normal 81.0-99.0 [facility] Comment on above: Performed By: #### E RUR, UMICRO #### [facility] [address] [place] [address] Dr. Hans Muniz MONO # 0.5 103/ul Normal 0.3-0.8 [facility] Comment on above: Performed By: #### YANE RODRÍGUEZ #### [facility] [address] [place] [address] Dr. Hans Muniz Monocytes/100 WBC (Bld) 6.9 % Normal 1.7-12.0 [facility] Comment on above: Performed By: #### YANE RODRÍGUEZ #### [facility] [address] [place] [address] Dr. Hans Muniz NEUT # 3.3 103/ul Normal 1.4-6.5 [facility] Comment on above: Performed By: #### YANE RODRÍGUEZ #### [facility] [address] [place] [address] Dr. Hans Muniz Neutrophils/100 WBC (Bld) 45.9 % Normal 43.0-75.0 [facility] Comment on above: Performed By: #### YANE RODRÍGUEZ #### [facility] [address] [place] [address] Dr. Hans Muniz Platelet mean volume (Bld) [Entitic vol] 8.9 fL Critically low 9.5-13.5 [facility] Comment on above: Performed By: #### YANE RODRÍGUEZ #### [facility] [address] [place] [address] Dr. Hans Muniz PLT 291 103/ul Normal 150-450 [facility] Comment on above: Performed By: #### YANE RODRÍGUEZ #### [facility] [address] [place] [address] Dr. Hans Muniz RBC 4.83 106/ul Normal 4.20-5.40 [facility] Comment on above: Performed By: #### YANE RODRÍGUEZ #### [facility] [address] [place] [address] Dr. Hans Muniz WBC 7.3 103/ul Normal 4.0-11.0 [facility] Comment on above: Performed By: #### YANE RODRÍGUEZ #### [facility] [address] [place] [address] [address] [address] Hans Muniz PREG HCG QUALon 06-30-2022 , QUAL Negative Normal NEGATIVE [facility] Comment on above: Performed By: #### G IPANEL #### [facility] [address] [place], [place] [address] Dr. Hans Muniz Covid-19 PCR ([facility])on 06-09 SARS-CoV-2 (COVID-19) RNA BALTAZAR+probe Ql (Unsp spec) Not detected Normal NOT DETECTED [facility] Comment on above: Result Comment: This test is not yet approved or cleared by the [place] FDA. When there are no FDA-approved or cleared tests available, and other criteria are met, FDA can make tests available under an emergency access mechanism called an Emergency Use Authorization (EUA). The EUA for this test is supported by the [facility] of Health and Human Service's (HHS's) declaration [...] SARS-CoV-2. Performed By: #### C VDTB #### [facility] [address] [place], [place] [id number] Dr. Hans Muniz US PELVIS AND TRANSVAGon [...] authenticated by: ILENEZEKE MERCADO Date: 2022-06-19 07:24 [facility] PAP ACOG PANEL 2: 23 to 31on 01-03-2022 . . Normal [facility] Comment on above: Performed By: #### E FERN, UMICRO #### [facility] [address] [place] [address] Dr. Hans Muniz Age Gdln ACOG Testing [facility] Comment on above: Performed By: #### Lora SHIRLEY, UMICRO #### [facility] [address] [place] [address] Dr. Hans Muniz DIAGNOSIS: Comment [facility] Comment on above: Result Comment: NEGA TIVE FOR INTRAEPITHELIAL LESION OR MALIGNANCY. Performed By: #### Lora SHIRLEY, UMICRO #### [facility] [address] [address] [address] Hans Muniz Methodology: Comment [facility] Comment on above: Result Comment: This liquid based ThinPrep(R) pap test was screened with the use of an image guided system. Performed By: #### Lora SHIRLEY, UMICRO #### [facility] [address] [address] [address] Hans Muniz Note: Comment [facility] Comment on above: Result Comment: The Pap smear is a screening test designed to aid in the detection of premalignant and malignant conditions of the uterine cervix. It is not a diagnostic procedure and should not be used as the sole means of detecting cervical cancer. Both false-positive and false-negative reports do occur. . Performed By: #### E JENNIFERR, UMICRO #### [facility] [address] [address] [address] Hans Muniz Performed by: Comment Normal [facility] Comment on above: Result Comment: Marlene Silva, Control Room Agent Performed By: #### YANE RODRÍGUEZ #### [facility] [address] [place] [address] Dr. Hans Muniz Reflex Criteria: Comment Normal [facility] Comment on above: Result Comment: The HPV DNA reflex criteria were not met with this specimen result therefore, no HPV testing was performed. . Performed By: #### SHAWN RODRÍGUEZRO #### [facility] [address] [place] [address] Dr. Hans Muniz Specimen adequacy: Comment Normal [facility] Comment on above: Result Comment: Sati sfactory for evaluation. Endocervical and/or squamous metaplastic cells (endocervical component) are present. Performed By: #### SHAWN RODRÍGUEZRO #### [facility] [address] [place] [address] Dr. Hans Muniz CHLAMYDIA/GONOCOCCUS BALTAZAR (SW AB/URINE/PAPon 12-31-2021 Chlamydia trachomatis, BALTAZAR Negative Normal Negative [facility] Comment on above: Performed By: #### G IPANEL #### [facility] [address] [place] [address] Dr. Hans Muniz Neisseria gonorrhoeae, BALTAZAR Negative Normal Negative [facility] Comment on above: Performed By: #### G IPANEL #### [facility] [address] [place] [address] Dr. Hans Muniz VAGINITIS/VAGINOSIS DNA PROB Ervin 12-30-2021 Ofe species Negative Normal Negative [facility] Comment on above: Performed By: #### G IPANEL #### [facility] [address] [place] [address] Dr. Hans Muniz Gardnerella vaginalis Positive Abnormal Negative [facility] Comment on above: Performed By: #### G IPANEL #### [facility] [address] [place] [address] Dr. Hans Muniz Trichomonas vaginalis Negative Normal Negative [facility] Comment on above: Performed By: #### G IPANEL #### [facility] [address] [place] [address] Dr. Hans Muniz HEPATITIS PANEL, ACUTEon HBsAg Screen Negative Normal Negative [facility] Comment on above: Performed By: #### E RUR, UMICRO #### [facility] [address] [place] [address] Dr. Hans Muniz Hep A Ab, IgM Negative Normal Negative [facility] Comment on above: Performed By: #### E RUR, UMICRO #### [facility] [address] [address] [address] Hans Muniz Hep B Core Ab, IgM Negative Normal Negative [facility] Comment on above: Performed By: #### E RUR, UMICRO #### [facility] [address] [place] [address] Dr. Hans Muniz Hep C Virus Ab <0.1 Normal 0.0-0.9 [facility] Comment on above: Result Comment: Nega tive: < 0.8 Indeterminate: 0.8 - 0.9 Positive: > 0.9 . The CDC recommends that a positive HCV antibody result be followed up with a HCV Nucleic Acid Amplification test (326101). Effective February 06, 2022 Hepatitis Panel (4) will be made non-orderable. [facility] offers order code [id number] Acute Hepatitis. Performed By: #### E RUR, UMICRO #### [facility] [address] [place] [address] Dr. Hans Muniz HERPES SIMPLEX 1/2 IGGon HSV 1 IgG, Type Spec 37.40 index Critically high 0.00-0.90 [facility] Comment on above: Result Comment: Nega tive <0.91 Equivocal 0.91 - 1.09 Positive >1.09 Note: Negative indicates no antibodies detected to HSV-1. Equivocal may suggest early infection. If clinically appropriate, retest at later date. Positive indicates antibodies detected to HSV-1. Performed By: #### H SV IGG #### [facility] [address] [place] [address] Dr. Hans Muniz HSV 2 IgG Type Spec <0.91 Normal 0.00-0.90 [facility] Comment on above: Result Comment: Nega tive <0.91 Equivocal 0.91 - 1.09 Positive >1.09 Note: Negative indicates no HSV-2 antibodies detected. Positive indicates HSV-2 antibodies detected. Equivocal and low positive HSV-2 screens (Index 0.91-5.00) may be false positive and are reflexed to supplemental testing in accordance with CDC guidelines. Performed By: #### H SV IGG #### [facility] [address] [place] [address] Dr. Hans Muniz HERPES SIMPLEX 1/2 IGMon HSV, IgM I/II Combination <0.91 Normal 0.00-0.90 [facility] Comment on above: Result Comment: Nega tive <0.91 Equivocal 0.91 - 1.09 Positive >1.09 Performed By: #### H SVIGM #### [facility] [address] [place] [address] Dr. Hans Muniz HIV 1 AND 2 WITH REFLEXon HIV Screen 4th Generation wRfx Non-Reactive Normal Non Reactive [facility] Comment on above: Result Comment: HIV Negative HIV-1/HIV-2 antibodies and HIV-1 p24 antigen were NOT detected. There is no laboratory evidence of HIV infection. Performed By: #### G IPANEL #### [facility] [address] [place] [address] Dr. Hans Muniz RPR QUANTon 12-29-2021 Rapid Plasma Reagin, Quant Non-Reactive Normal NonRea<1:1 [facility] Comment on above: Performed By: #### YANE RODRÍGUEZ #### [facility] [address] [place] [address] Dr. Hans Muniz CBC AUTO DIFFon 11-23-2021 BASO # 0.0 103/ul Normal 0.0-0.1 [facility] Comment on above: Performed By: #### YANE RODRÍGUEZ #### [facility] [address] [place] [address] Dr. Hans Muniz Basophils/100 WBC (Bld) 0.7 % Normal 0.2-2.0 [facility] Comment on above: Performed By: #### SHAWN RODRÍGUEZRO #### [facility] [address] [place] [address] Dr. Hans Muniz EO # 0.1 103/ul Normal 0.0-0.7 [facility] Comment on above: Performed By: #### SHAWN RODRÍGUEZRO #### [facility] [address] [place] [address] Dr. Hans Muniz Eosinophils/100 WBC (Bld) 1.2 % Normal 0.9-7.0 [facility] Comment on above: Performed By: #### SHAWN RODRÍGUEZRO #### [facility] [address] [place] [address] Dr. Hans Muniz Erythrocyte distribution width (RBC) [Ratio] 14.1 % Normal 11.0-15.0 [facility] Comment on above: Performed By: #### SHAWN RODRÍGUEZRO #### [facility] [address] [place] [address] Dr. Hans Muniz Hematocrit (Bld) [Volume fraction] 41.3 % Normal 36.0-48.0 [facility] Comment on above: Performed By: #### SHAWN RODRÍGUEZRO #### [facility] [address] [place] [address] Dr. Hans Muniz Hemoglobin (Bld) [Mass/Vol] 13.3 g/dL Normal 12.0-16.0 [facility] Comment on above: Performed By: #### SHAWN RODRÍGUEZRO #### [facility] [address] [place] [address] Dr. Hans Muniz IG # 0.01 10e3/ul Normal 0.00-0.03 [facility] Comment on above: Performed By: #### SHAWN RODRÍGUEZRO #### [facility] [address] [place] [address] Dr. Hans Muniz IG % 0.2 % Normal 0.0-0.5 [facility] Comment on above: Performed By: #### SHAWN RODRÍGUEZRO #### [facility] [address] [place] [address] Dr. Hans Muniz LYMPH # 1.1 103/ul Critically low 1.2-3.8 [facility] Comment on above: Performed By: #### YANE RODRÍGUEZ #### [facility] [address] [place] [address] Dr. Hans Muniz Lymphocytes/100 WBC (Bld) 25.2 % Normal 20.5-60.0 [facility] Comment on above: Performed By: #### SHAWN RODRÍGUEZRO #### [facility] [address] [place] [address] Dr. Hans Muniz MANUAL DIFF REQ NO Normal [facility] Comment on above: Performed By: #### YANE RODRÍGUEZ #### [facility] [address] [place] [address] Dr. Hans Muniz MCH (RBC) [Entitic mass] 26.7 pg Normal 26.7-34.0 [facility] Comment on above: Performed By: #### SHAWN RODRÍGUEZRO #### [facility] [address] [place] [address] Dr. Hans Muniz MCHC (RBC) [Mass/Vol] 32.2 g/dL Normal 29.9-35.2 [facility] Comment on above: Performed By: #### YANE RODRÍGUEZ #### [facility] [address] [place] [address] Dr. Hans Muniz MCV (RBC) [Entitic vol] 82.8 fL Normal 81.0-99.0 [facility] Comment on above: Performed By: #### SHAWN RODRÍGUEZRO #### [facility] [address] [place] [address] Dr. Hans Muniz MONO # 0.4 103/ul Normal 0.3-0.8 [facility] Comment on above: Performed By: #### SHAWN RODRÍGUEZRO #### [facility] [address] [place] [address] Dr. Hans Muniz Monocytes/100 WBC (Bld) 9.3 % Normal 1.7-12.0 [facility] Comment on above: Performed By: #### MAGALIS RODRÍGUEZICRO #### [facility] [address] [place] [address] Dr. Hans Muniz NEUT # 2.7 103/ul Normal 1.4-6.5 [facility] Comment on above: Performed By: #### Lora SHIRLEY UMICRO #### [facility] [address] [place] [address] Dr. Hans Muniz Neutrophils/100 WBC (Bld) 63.4 % Normal 43.0-75.0 [facility] Comment on above: Performed By: #### Lora SHIRLEY ICRO #### [facility] [address] [place] [address] Dr. Hans Muniz Platelet mean volume (Bld) [Entitic vol] 9.6 fL Normal 9.5-13.5 [facility] Comment on above: Performed By: #### Lora SHIRLEY ICRO #### [facility] [address] [place] [address] Dr. Hans Muniz PLT 252 103/ul Normal 150-450 [facility] Comment on above: Performed By: #### Lora SHIRLEY ICRO #### [facility] [address] [place] [address] Dr. Hans Muniz RBC 4.99 106/ul Normal 4.20-5.40 [facility] Comment on above: Performed By: #### Lora SHIRLEY ICRO #### [facility] [address] [place] [address] Dr. Hans Muniz WBC 4.2 103/ul Normal 4.0-11.0 [facility] Comment on above: Performed By: #### Lora SHIRLEY ICRO #### [facility] [address] [place] [address] Dr. Hans Muniz GI PANEL (PCR)on 11-23-2021 Adenovirus F 40/41 Not detected Normal NOT DETECTED [facility] Comment on above: Performed By: #### G IPANEL #### [facility] [address] [place] [address] Dr. Hans Muniz Astrovirus Detected Abnormal NOT DETECTED [facility] Comment on above: Performed By: #### G IPANEL #### [facility] [address] [address] [address] Hans Muniz C. Diff toxin A/B Detected Critically abnormal NOT DETECTED [facility] Comment on above: Performed By: #### G IPANEL #### [facility] [address] [address] [address] Hans Muniz Campylobacter Not detected Normal NOT DETECTED [facility] Comment on above: Performed By: #### G IPANEL #### [facility] [address] [address] [address] Hans Muniz Cryptosporidium Not detected Normal NOT DETECTED [facility] Comment on above: Performed By: #### G IPANEL #### [facility] [address] [address] [address] Hans Muniz Cyclos. Cayetanensis Not detected Normal NOT DETECTED [facility] Comment on above: Performed By: #### G IPANEL #### [facility] [address] [address] [address] Hans Muniz E. Coli O157 Not Applicable Normal Not Applicable [facility] Comment on above: Performed By: #### G IPANEL #### [facility] [address] [place] [address] Dr. Hans Muniz E. histolytica Not detected Normal NOT DETECTED [facility] Comment on above: Performed By: #### G IPANEL #### [facility] [address] [address] [address] Hans Muniz EAEC Not detected Normal NOT DETECTED [facility] Comment on above: Performed By: #### G IPANEL #### [facility] [address] [place] [address] Dr. Hans Muniz EIEC Not detected Normal NOT DETECTED [facility] Comment on above: Performed By: #### G IPANEL #### [facility] [address] [place] [address] Dr. Hans Muniz EPEC Not detected Normal NOT DETECTED [facility] Comment on above: Performed By: #### G IPANEL #### [facility] [address] [address] [address] Hans Muniz ETEC Not detected Normal NOT DETECTED [facility] Comment on above: Performed By: #### G IPANEL #### [facility] [address] [address] [address] Hans Bueno Lamblia Not detected Normal NOT DETECTED [facility] Comment on above: Performed By: #### G IPANEL #### [facility] [address] [address] [address] Hans NORIEGA CONTROLS PASSED Normal [facility] Comment on above: Performed By: #### G IPANEL #### [facility] [address] [address] [address] Hans RAMIREZ HEADER GI PANEL BACTERIA Normal T [facility] Comment on above: Performed By: #### G IPANEL #### [facility] [address] [place] [address] Dr. Hasn CORONADO ECOLI GI PANEL DIARRHEAGENIC E.COLI / SHIGELLA Normal [facility] Comment on above: Performed By: #### G IPANEL #### [facility] [address] [place] [address] Dr. Hans CORONADO INFO SEE BELOW [facility] Comment on above: Result Comment: EAEC - Enteroaggregative E. Coli EPEC- Enteropathogenic E. Coli ETEC- Enterotoxigenic E. Coli lt/st STEC- Shigella-like toxin-producing E. Coli stx1/stx2 EIEC- Shigella/Enteroinvasive E. Coli Performed By: #### G IPANEL #### [facility] [address] [place] [address] Dr. Hans CORONADO PARASITES GI PANEL PARASITES Normal [facility] Comment on above: Performed By: #### G IPANEL #### [facility] [address] [place] [address] Dr. Hans CORONADO VIRUS GI PANEL VIRUSES Normal [facility] Comment on above: Performed By: #### G IPANEL #### [facility] [address] [place] [address] Dr. Hans Muniz Norovirus GI/GII Not detected Normal NOT DETECTED [facility] Comment on above: Performed By: #### G IPANEL #### [facility] [address] [place] [address] Dr. Hans Muniz P. Shigelloides Not detected Normal NOT DETECTED The [facility] Comment on above: Performed By: #### G IPANEL #### [facility] [address] [place] [address] Dr. Hans Muniz Rotavirus A Not detected Normal NOT DETECTED The [facility] Comment on above: Performed By: #### G IPANEL #### [facility] [address] [place] [address] Dr. Hans Muniz Salmonella Not detected Normal NOT DETECTED The [facility] Comment on above: Performed By: #### G IPANEL #### [facility] [address] [place] [address] Dr. Hans Muniz Sapovirus Not detected Normal NOT DETECTED [facility] Comment on above: Performed By: #### G IPANEL #### [facility] [address] [place] [address] Dr. Hans Muniz STEC Not detected Normal NOT DETECTED [facility] Comment on above: Performed By: #### G IPANEL #### [facility] [address] [place] [address] Dr. Hans Muniz Vibrio Not detected Normal NOT DETECTED [facility] Comment on above: Performed By: #### G IPANEL #### [facility] [address] [place] [address] Dr. Hans Muniz Vibrio Cholera Not detected Normal NOT DETECTED The [facility] Comment on above: Performed By: #### G IPANEL #### [facility] [address] [place] [address] Dr. Hans Muniz Y. Enterocolitica Not detected Normal NOT DETECTED [facility] Comment on above: Performed By: #### G IPANEL #### [facility] [address] [place] [address] Dr. Hans Muniz PROF 14(COMP METB)on 022 Albumin [Mass/Vol] 3.6 g/dL Normal 3.5-5.0 [facility] Comment on above: Performed By: #### G IPANEL #### [facility] [address] [place] [address] Dr. Hans Muniz Albumin/Globulin [Mass ratio] 0.9 {ratio} Normal [facility] Comment on above: Performed By: #### G IPANEL #### [facility] [address] [address] [address] Hans Muniz ALP [Catalytic activity/Vol] 80 U/L Normal 38-126 [facility] Comment on above: Performed By: #### G IPANEL #### [facility] [address] [place] [address] Dr. Hans Muniz ALT [Catalytic activity/Vol] 41 U/L Normal 9-52 [facility] Comment on above: Performed By: #### G IPANEL #### [facility] [address] [place] [address] Dr. Hans Muniz Anion gap [Moles/Vol] 9.8 mmol/L Normal [facility] Comment on above: Performed By: #### G IPANEL #### [facility] [address] [place] [address] Dr. Hans Muniz AST [Catalytic activity/Vol] 34 U/L Normal 14-36 [facility] Comment on above: Performed By: #### G IPANEL #### [facility] [address] [place] [address] Dr. Hans Muniz Bilirubin [Mass/Vol] 0.3 mg/dL Normal 0.2-1.3 [facility] Comment on above: Performed By: #### G IPANEL #### [facility] [address] [place] [address] Dr. Hans Muniz Calcium [Mass/Vol] 8.8 mg/dL Normal 8.4-10.2 [facility] Comment on above: Performed By: #### G IPANEL #### [facility] [address] [place] [address] Dr. Hans Muniz Chloride [Moles/Vol] 105 mmol/L Normal 98-107 [facility] Comment on above: Performed By: #### G IPANEL #### [facility] [address] [address] [address] Hans Muniz CO2 [Moles/Vol] 24.2 mmol/L Normal 22.0-30.0 [facility] Comment on above: Performed By: #### G IPANEL #### [facility] [address] [address] [address] Hans Muniz Creatinine [Mass/Vol] 0.76 mg/dL Normal 0.52-1.04 [facility] Comment on above: Performed By: #### G IPANEL #### [facility] [address] [address] [address] Hans Muniz EGFR-AF PARAGUAYAN >60 Normal >=60 [facility] Comment on above: Performed By: #### G IPANEL #### [facility] [address] [place] [address] Dr. Hans Muniz EGFR-NON AF PARAGUAYAN >60 Normal >=60 [facility] Comment on above: Performed By: #### G IPANEL #### [facility] [address] [address] [address] Hans Muniz Globulin (S) [Mass/Vol] 4.1 g/dL Normal [facility] Comment on above: Performed By: #### G IPANEL #### [facility] [address] [place] [address] Dr. Hans Muniz Glucose [Mass/Vol] 99 mg/dL Normal 74-106 [facility] Comment on above: Performed By: #### G IPANEL #### [facility] [address] [place] [address] Dr. Hans Muniz Potassium [Moles/Vol] 3.0 mmol/L Critically low 3.4-5.0 [facility] Comment on above: Performed By: #### G IPANEL #### [facility] [address] [place] [address] Dr. Hans Muniz Protein [Mass/Vol] 7.7 g/dL Normal 6.1-8.2 [facility] Comment on above: Performed By: #### G IPANEL #### [facility] [address] [place], [place] [address] Dr. Hans Muniz Sodium [Moles/Vol] 135 mmol/L Critically low 137-145 [facility] Comment on above: Performed By: #### G IPANEL #### [facility] [address] [place], [place] [address] Dr. Hans Muniz Urea nitrogen [Mass/Vol] 10.0 mg/dL Normal 7.0-17.0 [facility] Comment on above: Performed By: #### G IPANEL #### [facility] [address] [place], [place] [address] Dr. Hans Muniz Urea nitrogen/Creatinine [Mass ratio] 13.2 mg/mg Normal [facility] Comment on above: Performed By: #### G IPANEL #### [facility] [address] [place], [place] [address] Dr. Hans Muniz XR CHEST 2 Von 11-16-2021 XR CHEST 2 V This study was read during a downtime in the [employer] PACS system. The actual time dictated and [...] by: MELINDA LANE Date: 2021-11-16 10:10 Normal [facility] XR RIBS RT NO CH 2Von 2021 XR RIBS RT NO CH 2V EXAMINATION: XR RIBS RT NO CH 2V HISTORY: Pleuritic pain COMPARISON: No relevant comparison available. FINDINGS: RIBS: Normal. No significant arthropathy or acute abnormality. LUNGS: No appreciable pneumothorax or pleural thickening. OTHER: Negative. IMPRESSION: 1. No appreciable right rib abnormality. Electronically authenticated by: ILENE MERCADO Date: 2021-11-16 06:53 Normal [facility] MG MAMM DIAGNOSTIC 3D POLINA CA Don 11-15-2021 MG MAMM DIAGNOSTIC 3D POLINA CAD Patient: BRIAN SULLIVAN Exam Date: 11/15/2021 : 1995 Gender:F Ordering : DR SHAUN AVILES Admission #: [id number] Family : Order #: [id number] CLICK HERE TO VIEW EXAM RADIOLOGY REPORT [...] ovarian cancer at age 52. LOCATION: [facility] BREAST COMPOSITION: Extremely dense, which lowers [...] M.D. on 11/15/2021 at 12:01 Normal [facility] US BREAST POLINA LIMITEDon 02-0 US BREAST POLINA LIMITED Patient: BRIAN SULLIVAN Exam Date: 11/15/2021 : 1995 Gender:F Ordering : DR SHAUN AVILES Admission #: [id number] Family : Order #: [id number] CLICK HERE TO VIEW EXAM RADIOLOGY REPORT [...] ovarian cancer at age 52. LOCATION: [facility] BREAST COMPOSITION: Extremely dense, which lowers [...] Mercado M.D. on 11/15/2021 at 12:01 Normal [facility] FERRITINon 09-29-2021 Ferritin [Mass/Vol] 12 ng/mL Critically low 15-150 T [facility] Comment on above: Performed By: #### G IPANEL #### [facility] [address] [address] [address] Hans Muniz VIT D 25-OH [employer] 2020 Vitamin D, 25-Hydroxy 29.8 ng/mL Critically low 30.0-100.0 [facility] Comment on above: Result Comment: Jeannie min D deficiency has been defined by the [place] [employer] and an Endocrine Society practice guideline as a level of serum 25-OH vitamin D less than 20 ng/mL (1,2). The Endocrine Society went on to further define vitamin D insufficiency as a level between 21 and 29 ng/mL (2). 1. IOM ([place] [employer]). 2010. Dietary reference intakes for calcium and D. [place]: The National Academies Press. 2. Monique JARAMILLO, Tatum SAVAGE, Matt TAYLOR, et al. Evaluation, treatment, and prevention of vitamin D deficiency: an Endocrine Society clinical practice guideline. JCEM. 2010; 96(7):1911-30. Performed By: #### G IPANEL #### [facility] [address] [place] [address] Dr. Hans Muniz CBC AUTO DIFFon 09-28-2021 BASO # 0.0 103/ul Normal 0.0-0.1 [facility] Comment on above: Performed By: #### G IPANEL #### [facility] [address] [place] [address] Dr. Hans Muniz Basophils/100 WBC (Bld) 0.4 % Normal 0.2-2.0 [facility] Comment on above: Performed By: #### G IPANEL #### [facility] [address] [address] [address] Hans Muniz EO # 0.2 103/ul Normal 0.0-0.7 [facility] Comment on above: Performed By: #### G IPANEL #### [facility] [address] [place] [address] Dr. Hans Muniz Eosinophils/100 WBC (Bld) 3.1 % Normal 0.9-7.0 [facility] Comment on above: Performed By: #### G IPANEL #### [facility] [address] [place] [address] Dr. Hans Muniz Erythrocyte distribution width (RBC) [Ratio] 14.3 % Normal 11.0-15.0 [facility] Comment on above: Performed By: #### G IPANEL #### [facility] [address] [place] [address] Dr. Hans Muniz Hematocrit (Bld) [Volume fraction] 38.3 % Normal 36.0-48.0 [facility] Comment on above: Performed By: #### G IPANEL #### [facility] [address] [place] [address] Dr. Hans Muniz Hemoglobin (Bld) [Mass/Vol] 12.0 g/dL Normal 12.0-16.0 [facility] Comment on above: Performed By: #### G IPANEL #### [facility] [address] [place] [address] Dr. Hans Muniz IG # 0.02 10e3/ul Normal 0.00-0.03 [facility] Comment on above: Performed By: #### G IPANEL #### [facility] [address] [place] [address] Dr. Hans Muniz IG % 0.3 % Normal 0.0-0.5 [facility] Comment on above: Performed By: #### G IPANEL #### [facility] [address] [place] [address] Dr. Hans Muniz LYMPH # 1.9 103/ul Normal 1.2-3.8 [facility] Comment on above: Performed By: #### G IPANEL #### [facility] [address] [place] [address] Dr. Hans Muniz Lymphocytes/100 WBC (Bld) 27.4 % Normal 20.5-60.0 [facility] Comment on above: Performed By: #### G IPANEL #### [facility] [address] [place] [address] Dr. Hans Muniz MANUAL DIFF REQ NO Normal [facility] Comment on above: Performed By: #### G IPANEL #### [facility] [address] [place] [address] Dr. Hans Muniz MCH (RBC) [Entitic mass] 26.2 pg Critically low 26.7-34.0 [facility] Comment on above: Performed By: #### G IPANEL #### [facility] [address] [place] [address] Dr. Hans Muniz MCHC (RBC) [Mass/Vol] 31.3 g/dL Normal 29.9-35.2 [facility] Comment on above: Performed By: #### G IPANEL #### [facility] [address] [place] [address] Dr. Hans Muniz MCV (RBC) [Entitic vol] 83.6 fL Normal 81.0-99.0 [facility] Comment on above: Performed By: #### G IPANEL #### [facility] [address] [place] [address] Dr. Hans Muniz MONO # 0.3 103/ul Normal 0.3-0.8 [facility] Comment on above: Performed By: #### G IPANEL #### [facility] [address] [place] [address] Dr. Hans Muniz Monocytes/100 WBC (Bld) 4.4 % Normal 1.7-12.0 [facility] Comment on above: Performed By: #### G IPANEL #### [facility] [address] [place] [address] Dr. Hans Muniz NEUT # 4.3 103/ul Normal 1.4-6.5 [facility] Comment on above: Performed By: #### G IPANEL #### [facility] [address] [place] [address] Dr. Hans Muniz Neutrophils/100 WBC (Bld) 64.4 % Normal 43.0-75.0 [facility] Comment on above: Performed By: #### G IPANEL #### [facility] [address] [place] [address] Dr. Hans Muniz Platelet mean volume (Bld) [Entitic vol] 9.5 fL Normal 9.5-13.5 [facility] Comment on above: Performed By: #### G IPANEL #### [facility] [address] [address] [address] Hans Muniz PLT 296 103/ul Normal 150-450 [facility] Comment on above: Performed By: #### G IPANEL #### [facility] [address] [address] [address] Hans Muniz RBC 4.58 106/ul Normal 4.20-5.40 [facility] Comment on above: Performed By: #### G IPANEL #### [facility] [address] [address] [address] Hans Muniz WBC 6.8 103/ul Normal 4.0-11.0 [facility] Comment on above: Performed By: #### G IPANEL #### [facility] [address] [place] [address] Dr. Hans Muniz FREE T4on 09-28-2021 Free T4 [Mass/Vol] 1.04 ng/dL Normal 0.78-2.19 [facility] Comment on above: Performed By: #### F T4 #### [facility] [address] [address] [address] Hans Muniz GLYCOHEMOGLOBIN A1Con 2020 ADA RECOMMENDATION ADA THERAPEUTIC TARGET 6.0 - 7.0 ACTION SUGGESTED > 7.0 Normal [facility] Comment on above: Performed By: #### G IPANEL #### [facility] [address] [place] [address] Dr. Hans Muniz Glucose [Mass/Vol] 91 mg/dL Normal [facility] Comment on above: Performed By: #### G IPANEL #### [facility] [address] [place] [address] Dr. Hans Muniz HbA1c (Bld) [Mass fraction] 4.8 % Normal <=6.0 [facility] Comment on above: Performed By: #### G IPANEL #### [facility] [address] [place] [address] Dr. Hans Muniz LIPID PROFILEon 09-28-2021 CHOL-HDL RATIO NORM SEE BELOW Normal [facility] Comment on above: Result Comment: 3.3 - 4.4 LOW RISK 4.4 - 7.1 AVERAGE RISK 7.1 - 11.0 MODERATE RISK >11.0 HIGH RISK Performed By: #### L IPID, TSH, CMP #### [facility] [address] [address] [address] Hans Muniz Cholesterol [Mass/Vol] 156 mg/dL Normal <=200 [facility] Comment on above: Performed By: #### L IPID, TSH, CMP #### [facility] [address] [address] [address] Hans Muniz Cholesterol in HDL [Mass/Vol] 46 mg/dL Normal [facility] Comment on above: Performed By: #### L IPID, TSH, CMP #### [facility] [address] [address] [address] Hans Muniz Cholesterol in LDL [Mass/Vol] 92.0 mg/dL Normal [facility] Comment on above: Performed By: #### L IPID, TSH, CMP #### [facility] [address] [address] [address] Hans Muniz Cholesterol.total/Cho lesterol in HDL [Mass ratio] 3.4 {ratio} Normal [facility] Comment on above: Performed By: #### L IPID, TSH, CMP #### [facility] [address] [address] [address] Hans Muniz HDL NORMAL > or = 60 mg/dl - LO W CARDIOVASCULAR RISK <40 mg/dl - HIGH CARDIOVASCULAR RISK Normal [facility] Comment on above: Performed By: #### L IPID, TSH, CMP #### [facility] [address] [address] [address] Hans Muniz LDL CALC NORMAL SEE BELOW Normal [facility] Comment on above: Result Comment: <100 mg/dl OPTIMAL 100 - 129 mg/dl NEAR OR ABOVE OPTIMAL 130 - 159 mg/dl BORDERLINE HIGH 160 - 189 mg/dl HIGH >190 mg/dl VERY HIGH Performed By: #### L IPID, TSH, CMP #### [facility] [address] [address] [address] Hans Muniz Triglyceride [Mass/Vol] 90 mg/dL Normal <=150 [facility] Comment on above: Performed By: #### L IPID, TSH, CMP #### [facility] [address] [place] [address] Dr. Hans Muniz VLDL CALC 18.0 mg/dL Normal [facility] Comment on above: Performed By: #### L IPID, TSH, CMP #### [facility] [address] [place] [address] Dr. Hans Muniz PROF 14(COMP METB)on 021 Albumin [Mass/Vol] 3.3 g/dL Critically low 3.5-5.0 [facility] Comment on above: Performed By: #### YANE RODRÍGUEZ #### [facility] [address] [place] [address] Dr. Hans Muniz Albumin/Globulin [Mass ratio] 0.8 {ratio} Normal [facility] Comment on above: Performed By: #### YANE RODRÍGUEZ #### [facility] [address] [place] [address] Dr. Hans Muniz ALP [Catalytic activity/Vol] 72 U/L Normal 38-126 [facility] Comment on above: Performed By: #### YANE RODRÍGUEZ #### [facility] [address] [place] [address] Dr. Hans Muniz ALT [Catalytic activity/Vol] 41 U/L Normal 9-52 [facility] Comment on above: Performed By: #### YANE RODRÍGUEZ #### [facility] [address] [place] [address] Dr. Hans Muniz Anion gap [Moles/Vol] 11.5 mmol/L Normal [facility] Comment on above: Performed By: #### YANE RODRÍGUEZ #### [facility] [address] [place] [address] Dr. Hans Muniz AST [Catalytic activity/Vol] 22 U/L Normal 14-36 [facility] Comment on above: Performed By: #### YANE RODRÍGUEZ #### [facility] [address] [address] [address] Hans Muniz Bilirubin [Mass/Vol] 0.6 mg/dL Normal 0.2-1.3 [facility] Comment on above: Performed By: #### SHAWN RODRÍGUEZRO #### [facility] [address] [place] [address] Dr. Hans Muniz Calcium [Mass/Vol] 8.7 mg/dL Normal 8.4-10.2 [facility] Comment on above: Performed By: #### Lora SHIRLEY UMICRO #### [facility] [address] [place] [address] Dr. Hans Muniz Chloride [Moles/Vol] 105 mmol/L Normal 98-107 [facility] Comment on above: Performed By: #### Lora SHIRLEY UMICRO #### [facility] [address] [place] [address] Dr. Hans Muniz CO2 [Moles/Vol] 25.0 mmol/L Normal 22.0-30.0 [facility] Comment on above: Performed By: #### Lora SHIRLEY UMICRO #### [facility] [address] [place] [address] Dr. Hans Muniz Creatinine [Mass/Vol] 0.68 mg/dL Normal 0.52-1.04 [facility] Comment on above: Performed By: #### Lora SHIRLEY UMICRO #### [facility] [address] [place] [address] Dr. Hans Muniz EGFR-AF PARAGUAYAN >60 Normal >=60 [facility] Comment on above: Performed By: #### Lora SHIRLEY UMICRO #### [facility] [address] [place] [address] Dr. Hans Muniz EGFR-NON AF PARAGUAYAN >60 Normal >=60 [facility] Comment on above: Performed By: #### Lora SHIRLEY UMICRO #### [facility] [address] [place] [address] Dr. Hans Muniz Globulin (S) [Mass/Vol] 3.9 g/dL Normal [facility] Comment on above: Performed By: #### E RUR, UMICRO #### [facility] [address] [place] [address] Dr. Hans Muniz Glucose [Mass/Vol] 80 mg/dL Normal 74-106 [facility] Comment on above: Performed By: #### E FERN UMICRO #### [facility] [address] [place] [address] Dr. Hans Muniz Potassium [Moles/Vol] 3.5 mmol/L Normal 3.4-5.0 [facility] Comment on above: Performed By: #### E FERN UMICRO #### [facility] [address] [place] [address] Dr. Hans Muniz Protein [Mass/Vol] 7.2 g/dL Normal 6.1-8.2 [facility] Comment on above: Performed By: #### E FERN UMICRO #### [facility] [address] [place] [address] Dr. Hans Muniz Sodium [Moles/Vol] 138 mmol/L Normal 137-145 [facility] Comment on above: Performed By: #### E FERN UMICRO #### [facility] [address] [place] [address] Dr. Hans Muniz Urea nitrogen [Mass/Vol] 6.0 mg/dL Critically low 7.0-17.0 [facility] Comment on above: Performed By: #### Lora SHIRLEY UMICRO #### [facility] [address] [place] [address] Dr. Hans Muniz Urea nitrogen/Creatinine [Mass ratio] 8.8 mg/mg Normal [facility] Comment on above: Performed By: #### E FERN UMICRO #### [facility] [address] [place] [address] Dr. Hans Muniz TSHon 09-28-2021 TSH 0.629 uIU/mL Normal 0.470-4.680 [facility] Comment on above: Performed By: #### E RULucia, UMICRO #### [facility] [address] [place] [address] Dr. Hans Muniz TSH RANGE SEE BELOW Normal [facility] Comment on above: Result Comment: <0.3 4 UIU/ml HYPERTHYROID 0.34-5.60 UIU/ml EUTHYROID >5.60 UIU/ml HYPOTHYROID Performed By: #### YANE RODRÍGUEZ #### [facility] [address] [address] [address] Hans Muniz Vital Signs Date Time Vital Sign Value Performing Clinician Facility 04-15-2024 14:04-0400 Body height 160.02 cm DO Shaun Nicoláss Work Phone: [facility] 04-15-2024 14:04-0400 Body mass index (BMI) [Ratio] 23.9 kg/m2 DO Shaun Nicoláss Work Phone: [facility] 04-15-2024 14:04-0400 Body weight 61.23 kg DO Shaun Nicoláss Work Phone: [facility] 01-29-2024 12:58-0400 Body height 160.02 cm DO Shaun Nicoláss Work Phone: [facility] 01-29-2024 12:58-0400 Body mass index (BMI) [Ratio] 26.2 kg/m2 DO Shaun Kuns Work Phone: [facility] 01-29-2024 12:58-0400 Body weight 67.13 kg DO Shaun Nicoláss Work Phone: [facility] 01-29-2024 12:58-0400 Diastolic blood pressure 70 mm[Hg] DO Shaun Nicoláss Work Phone: [facility] 01-29-2024 12:58-0400 Heart rate 89 /min DO Shaun Kuns Work Phone: [facility] 01-29-2024 12:58-0400 Respiratory rate 16 /min DO Shaun Nicoláss Work Phone: [facility] 01-29-2024 12:58-0400 SaO2% (BldA) [Mass fraction] 99 % DO Shaunjairon Aviles Work Phone: [facility] 01-29-2024 12:58-0400 Systolic blood pressure 100 mm[Hg] DO Shaun Nicoláss Work Phone: [facility] 10-16-2023 13:20-0500 Body height 160.02 cm Lj Stanton Other [facility] 10-16-2023 13:20-0500 Body mass index (BMI) [Ratio] 25.68 kg/m2 Lj Scprincess Other Located [facility] [employer] Other 10-16-2023 13:20-0500 Body weight 65.77 kg Lj Scprincess Other [facility] 08-22-2023 10:06-0500 Diastolic blood pressure 62 mm[Hg] DO Shaunjairon Aviles Work Phone: [facility] 08-22-2023 10:06-0500 Heart rate 67 /min DO Shaun Monzons Work Phone: [facility] 08-22-2023 10:06-0500 Respiratory rate 16 /min DO Shaunjairon Monzons Work Phone: [facility] 08-22-2023 10:06-0500 SaO2% (BldA) [Mass fraction] 99 % DO Shaunjairon Aviles Work Phone: [facility] 08-22-2023 10:06-0500 Systolic blood pressure 102 mm[Hg] DO Shaun Nicoláss Work Phone: [facility] 08-22-2023 08:02-0500 Body height 162.56 cm DO Shaun Nicoláss Work Phone: [facility] 08-22-2023 08:02-0500 Body weight 64.41 kg DO Shaun Nicoláss Work Phone: [facility] 07-26-2023 13:00-0400 Body height 160.02 cm Shaun Aviles Other [employer] Other 07-26-2023 13:00-0400 Body mass index (BMI) [Ratio] 25.68 kg/m2 Shaun Aviles Other [employer] Other 07-26-2023 13:00-0400 Body weight 65.77 kg Shaun Aviles Other [employer] Other 07-26-2023 13:00-0400 Diastolic blood pressure 64 mm[Hg] Shaun Aviles Other [employer] Other 07-26-2023 13:00-0400 Respiratory rate 18 /min Shaun Aviles Other [employer] Other 07-26-2023 13:00-0400 SaO2% (BldA) [Mass fraction] 97 % Shaun Monzonbere Other [employer] Other 07-26-2023 13:00-0400 Systolic blood pressure 100 mm[Hg] Shaun Aviles Other [employer] Other 07-09-2023 13:20-0400 Body height 160.02 cm Lj Stanton Other [employer] Other 07-09-2023 13:20-0400 Body mass index (BMI) [Ratio] 25.68 kg/m2 Lj Stanton Other [employer] Other 07-09-2023 13:20-0400 Body weight 65.77 kg Lj Stanton Other [employer] Other 07-09-2023 13:20-0400 Diastolic blood pressure 76 mm[Hg] Lj Stanton Other Loc[facility] [employer] Other 07-09-2023 13:20-0400 Systolic blood pressure 103 mm[Hg] Lj Stanton Other Loc[facility] [employer] Other 07-01-2023 20:50-0400 Diastolic blood pressure 62 mm[Hg] [facility] 07-01-2023 20:50-0400 Heart rate 86 /min [facility] 07-01-2023 20:50-0400 Mean blood pressure 73 mm[Hg] [facility] 07-01-2023 20:50-0400 Respiratory rate 17 /min [facility] 07-01-2023 20:50-0400 SaO2% (BldA) [Mass fraction] 95 % [facility] 07-01-2023 20:50-0400 Systolic blood pressure 95 mm[Hg] [facility] 07-01-2023 19:58-0400 Heart rate 87 /min [facility] 07-01-2023 19:58-0400 Respiratory rate 16 /min [facility] 07-01-2023 19:58-0400 SaO2% (BldA) [Mass fraction] 95 % [facility] [facility] 19:07-0400 Heart rate 89 /min [facility] 07-01-2023 19:07-0400 Respiratory rate 18 /min [facility] 07-01-2023 19:07-0400 SaO2% (BldA) [Mass fraction] 98 % [facility] 07-01-2023 17:52-0400 Body temperature 98.24 [degF] [facility] 07-01-2023 17:52-0400 Diastolic blood pressure 86 mm[Hg] Mirna Mcmullen [facility] 07-01-2023 17:52-0400 Mean blood pressure 97 mm[Hg] Mirna Mcmullen [facility] 07-01-2023 17:52-0400 Systolic blood pressure 120 mm[Hg] [facility] 11:00-0400 Body height 160.02 cm Rell Marinelli Other [facility] Other 04-05-2023 11:00-0400 Body mass index (BMI) [Ratio] 27.81 kg/m2 Rell Marinelli Other [facility] Other 04-05-2023 11:00-0400 Body weight 71.22 kg Rell Marinelli Other [facility] Other 03-06-2023 13:45-0400 Body height 160.02 cm Shaun Aviles Other [facility] Other 03-06-2023 13:45-0400 Body mass index (BMI) [Ratio] 27.88 kg/m2 Shaun Aviles Other [facility] Other 03-06-2023 13:45-0400 Body weight 71.4 kg Shaun Aviles Other [facility] Other 03-06-2023 13:45-0400 Diastolic blood pressure 60 mm[Hg] Shaun Aviles Other [facility] Other 03-06-2023 13:45-0400 Respiratory rate 16 /min Shaun Aviles Other [facility] Other 03-06-2023 13:45-0400 SaO2% (BldA) [Mass fraction] 98 % Shaun Aviles Other [facility] Other 03-06-2023 13:45-0400 Systolic blood pressure 114 mm[Hg] Shaun Traci Other [facility] Other 08-21-2022 13:30-0500 Body height 160.02 cm Shaun Monzonbere Other [facility] Other 08-21-2022 13:30-0500 Body mass index (BMI) [Ratio] 25.15 kg/m2 Shaun Aviles Other [facility] Other 08-21-2022 13:30-0500 Body weight 64.41 kg Shaun Aviles Other [facility] Other 08-21-2022 13:30-0500 Diastolic blood pressure 60 mm[Hg] Shaun Aviles Other [facility] Other 08-21-2022 13:30-0500 Respiratory rate 16 /min Shaun Traci Other [facility] Other 08-21-2022 13:30-0500 SaO2% (BldA) [Mass fraction] 99 % Shaun Aviles Other [facility] Other 08-21-2022 13:30-0500 Systolic blood pressure 112 mm[Hg] Shaun Aviles Other [facility] Other 05-03-2022 13:00-0400 Body temperature 98.2 [degF] DO Denys Michel Work Phone: [facility] 05-03-2022 13:00-0400 Diastolic blood pressure 71 mm[Hg] DO Denys Itzkowitz Work Phone: [facility] 05-03-2022 13:00-0400 Heart rate 96 /min DO Denys Itzkowitz Work Phone: [facility] 05-03-2022 13:00-0400 Respiratory rate 16 /min DO Denys Itzkowitz Work Phone: [facility] 05-03-2022 13:00-0400 SaO2% (BldA) [Mass fraction] 98 % DO Denys Itzkowitz Work Phone: [facility] 05-03-2022 13:00-0400 Systolic blood pressure 114 mm[Hg] DO Denys Itzkowitz Work Phone: [facility] 04-28-2022 16:06-0400 Body temperature 97.7 [degF] Shabbir Morales [facility] 04-28-2022 16:06-0400 Diastolic blood pressure 82 mm[Hg] Shabbir Andrew [facility] 04-28-2022 16:06-0400 Heart rate 112 /min Shabbir Andrew [facility] 04-28-2022 16:06-0400 Respiratory rate 18 /min Shabbirneri Morales [facility] 04-28-2022 16:06-0400 SaO2% (BldA) [Mass fraction] 98 % Shabbir Andrew [facility] 04-28-2022 16:06-0400 Systolic blood pressure 132 mm[Hg] Shabbir Andrew [facility] 03-28-2022 16:15-0400 Body height 160.02 cm Shaun Aviles Other [facility] Other 03-28-2022 16:15-0400 Body mass index (BMI) [Ratio] 22.99 kg/m2 Shaunjairon Monzonbere Other [facility] Other 03-28-2022 16:15-0400 Body weight 58.88 kg Shaunjairon Monzonbere Other [facility] Other 03-28-2022 16:15-0400 Diastolic blood pressure 70 mm[Hg] Shaun Aviles Other [facility] Other 03-28-2022 16:15-0400 Respiratory rate 16 /min Shaun Aviles Other [facility] Other 03-28-2022 16:15-0400 SaO2% (BldA) [Mass fraction] 98 % Shaun Aviles Other [facility] Other 03-28-2022 16:15-0400 Systolic blood pressure 122 mm[Hg] Shaun Aviles Other [facility] Other 01-19-2022 14:15-0400 Body height 160.02 cm Shaun Aviles Other [facility] Other 01-19-2022 14:15-0400 Body mass index (BMI) [Ratio] 22.85 kg/m2 Shaun Aviles Other [facility] Other 01-19-2022 14:15-0400 Body weight 58.51 kg Shaun Aviles Other [facility] Other 01-19-2022 14:15-0400 Diastolic blood pressure 80 mm[Hg] Shaun Aviles Other [facility] Other 01-19-2022 14:15-0400 Respiratory rate 16 /min Shaun Aviles Other [facility] Other 01-19-2022 14:15-0400 SaO2% (BldA) [Mass fraction] 95 % Shaun Aviles Other [facility] Other 01-19-2022 14:15-0400 Systolic blood pressure 124 mm[Hg] Shaun Aviles Other [facility] Other 12-15-2021 13:00-0500 Body height 160.02 cm Shaun Aviles Other [facility] Other 12-15-2021 13:00-0500 Body mass index (BMI) [Ratio] 22.49 kg/m2 Shaun Aviles Other [facility] Other 12-15-2021 13:00-0500 Body weight 57.61 kg Shaun Aviles Other [facility] Other 12-15-2021 13:00-0500 Diastolic blood pressure 70 mm[Hg] Shaun Aviles Other [facility] Other 12-15-2021 13:00-0500 Respiratory rate 16 /min Shaun Aviles Other [facility] Other 12-15-2021 13:00-0500 SaO2% (BldA) [Mass fraction] 99 % Shaun Aviles Other [facility] Other 12-15-2021 13:00-0500 Systolic blood pressure 110 mm[Hg] Shaun Aviles Other [facility] Other 11-07-2021 12:00-0500 Body height 160.02 cm Shaun Aviles Other [facility] Other 11-07-2021 12:00-0500 Body mass index (BMI) [Ratio] 22.85 kg/m2 Shaun Aviles Other [facility] Other 11-07-2021 12:00-0500 Body weight 58.51 kg Shaun Aviles Other [facility] Other 11-07-2021 12:00-0500 Diastolic blood pressure 64 mm[Hg] Shaun Aviles Other [facility] Other 11-07-2021 12:00-0500 Respiratory rate 18 /min Shaun Aviles Other [facility] Other 11-07-2021 12:00-0500 SaO2% (BldA) [Mass fraction] 99 % Shaun Aviles Other [facility] Other 11-07-2021 12:00-0500 Systolic blood pressure 112 mm[Hg] Shaun Aviles Other [facility] Other 09-26-2021 13:30-0500 Body height 160.02 cm Shaun Aviles Other [facility] Other 09-26-2021 13:30-0500 Body mass index (BMI) [Ratio] 22.32 kg/m2 Shaun Aviles Other [facility] Other 09-26-2021 13:30-0500 Body weight 57.15 kg Shaun Aviles Other [facility] Other 09-26-2021 13:30-0500 Diastolic blood pressure 66 mm[Hg] Shaun Aviles Other [facility] Other 09-26-2021 13:30-0500 Respiratory rate 16 /min Shaun Aviles Other [facility] Other 09-26-2021 13:30-0500 SaO2% (BldA) [Mass fraction] 99 % Shaun Aviles Other [facility] Other 09-26-2021 13:30-0500 Systolic blood pressure 100 mm[Hg] Shaun Aviles Other [facility] Other Encounters Encounter Date Encounter Type Care Provider Facility Start: 04-15-2024 End: 04-15-2024 ambulatory DO Shaun Aviles Work Phone: [facility] Work Phone: Start: 04-15-2024 End: 04-15-2024 Patient encounter procedure DO Shaun Aviles Work Phone: [facility] G[facility]enter[facility] Work Phone: Start: 01-29-2024 End: 01-29-2024 ambulatory DO Shaun Aviles Work Phone: [facility] Work Phone: Start: 01-29-2024 End: 01-29-2024 Patient encounter procedure DO Shaun Nicolásbere Work Phone: [facility] [place] Work Phone: Start: 01-22-2024 End: 01-22-2024 ambulatory Shaun Aviles Facility:[facility] Start: 01-22-2024 End: 01-22-2024 ambulatory DO Shaun Aviles Work Phone: [facility] Work Phone: Start: 01-22-2024 End: 01-22-2024 Patient encounter procedure DO Shaun Aviles Work Phone: [facility] for Breast Car Start: 12-27-2023 End: 12-27-2023 ambulatory Gail Lawrence Facility:[facility] Start: 12-27-2023 End: 12-27-2023 ambulatory DO Shaun Aviles Work Phone: [facility] Work Phone: Start: 12-27-2023 End: 12-27-2023 Patient encounter procedure DO Shaun Aviles Work Phone: [facility]-Lab [facility] [place] Work Phone: Start: 10-16-2023 End: 10-16-2023 ambulatory Lj Stanton Other [facility] Other Start: 10-16-2023 Office outpatient vi sit 15 minutes Lj Stanton [facility] Start: 10-16-2023 End: 10-16-2023 Patient encounter procedure DO Shaun Aviles Work Phone: [facility] Work Phone: Start: 08-23-2023 End: 08-23-2023 ambulatory Willie Lambert Other [facility] Other Start: 08-23-2023 Telephone encounter Willie [facility] Start: 08-22-2023 End: 08-22-2023 ambulatory Willie Lambert Facility:[facility] Start: 08-22-2023 End: 08-22-2023 Admission to same day surgery center DO Shaun Aviles Work Phone: [facility]-Digestive Health Work Phone: Start: 08-22-2023 End: 08-22-2023 ambulatory DO Shaun Aviles Work Phone: [facility] Work Phone: Start: 08-15-2023 End: 08-15-2023 ambulatory Lj Stanton Facility:[facility] Start: 08-15-2023 End: 08-15-2023 ambulatory DO Shaun Aviles Work Phone: [facility] Work Phone: Start: 08-15-2023 End: 08-15-2023 Patient encounter procedure DO Shaun Aviles Work Phone: [facility]-Lab [facility] [place] Work Phone: Start: 07-26-2023 End: 07-26-2023 ambulatory Shaunjairon Aviles Other [facility] Other Start: 07-26-2023 Office outpatient vi sit 25 minutes Shaun Aviles [facility] Start: 07-20-2023 End: 07-20-2023 ambulatory Shaunjairon Aviles Other [facility] Other Start: 07-20-2023 Telephone encounter Shaun Aviles [facility] Start: 07-17-2023 End: 07-17-2023 ambulatory Shaun Aviles Facility:[facility] Start: 07-17-2023 End: 07-17-2023 ambulatory DO Shaun Aviles Work Phone: [facility] Work Phone: Start: 07-17-2023 End: 07-17-2023 Patient encounter procedure DO Shaun Aviles Work Phone: [facility]-Ultrasound Cntr for Breast Car Start: 07-09-2023 End: 07-09-2023 ambulatory Lj Stanton Other [facility] Other Start: 07-09-2023 Office outpatient ne w 30 minutes Lj Stanton [facility] Gastroenterology Start: 07-05-2023 End: 07-05-2023 ambulatory Shaun Aviles Other [facility] Other Start: 07-05-2023 Telephone encounter Shaun Aviles [facility] [place] Start: 07-01-2023 End: 07-01-2023 Emergency department patient visit Mirna Montgomery christie Facility:[facility] Start: 07-01-2023 End: 07-01-2023 Emergency department patient visit [facility] Start: 04-23-2023 (Procedure) Murray Marinelli [facility] Start: 04-23-2023 End: 04-23-2023 ambulatory Rell Marinelli Other [facility] Other Start: 04-05-2023 End: 04-05-2023 ambulatory Rell Marinelli Other [facility] Other Start: 04-05-2023 Office outpatient vi sit 25 minutes Rell Marinelli [facility] Start: 04-05-2023 Telephone encounter Rell Marinelli [facility] Start: 03-06-2023 End: 03-06-2023 ambulatory Shaun Aviles Other [facility] Other Start: 03-06-2023 Office outpatient vi sit 25 minutes Shaun Aviles [facility] [place] Start: 01-01-2023 End: 01-01-2023 ambulatory DO Shaun Aviles Work Phone: [facility] Work Phone: Start: 01-01-2023 End: 01-01-2023 Patient encounter procedure DO Shaun Aviles Work Phone: [facility]-XRay [facility] [place] Work Phone: Start: 11-24-2022 End: 11-24-2022 ambulatory DO Shaun Aviles Work Phone: [facility] Work Phone: Start: 11-24-2022 End: 11-24-2022 Patient encounter procedure DO Shaun Aviles Work Phone: [facility]-Center for Breast Care Work Phone: Start: 10-20-2022 End: 10-20-2022 ambulatory Shaun Aviles Other [facility] Other Start: 10-20-2022 Telephone encounter Shaun Aviles [facility] Start: 08-21-2022 End: 08-21-2022 ambulatory Shaun Aviles Other [facility] Other Start: 08-21-2022 Office outpatient vi sit 15 minutes Shaun Aviles [facility] Start: 08-17-2022 End: 08-17-2022 ambulatory Shaun Aviles Other [facility] Other Start: 08-17-2022 Telephone encounter Shaun Aviles [facility] Start: 07-18-2022 End: 07-19-[address] SHAUN AVILES Facility:[facility] Start: 07-06-2022 End: 07-06-[address] ILENE MERCADO Facility:[facility] Start: 07-02-2022 End: 07-02-[address] SHAUN AVILES Facility:[facility] Start: 06-30-2022 End: 06-30-[address] DOCTOR GLASER Facility:[facility] Start: 06-29-2022 Encounter for preprocedural laboratory examination DR GHANSHYAM NIETO [facility] Start: 06-27-2022 End: 06-28-[address] DOCTOR GLASER Facility:[facility] Start: 06-27-2022 End: 06-28-2022 Encounter for preprocedural laboratory examination DR DOCTOR GLASER Facility:[facility] Start: 06-25-2022 Encounter for other preprocedural examination DR GHANSHYAM NIETO [facility] Start: 06-21-2022 End: 06-22-[address] DOCTOR GLASER Facility:[facility] Start: 06-21-2022 End: 06-22-2022 Encounter for other preprocedural examination DR DOCTOR GLASER Facility:[facility] Start: 06-17-2022 End: 06-18-[address] DOCTOR GLASER Facility:[facility] Start: 05-03-2022 End: 05-03-2022 Admission to same day surgery center DO Denys Pearson Work Phone: [facility]-Ultrasound Cntr for Breast Car Start: 05-01-2022 End: 05-01-2022 ambulatory Shaun Aviles Other [facility] Other Start: 05-01-2022 Telephone encounter Shaun Aviles [facility] Start: 04-28-2022 End: 04-28-2022 Emergency department patient visit Shabbir Morales [facility] Start: 04-18-2022 End: 04-18-2022 Patient encounter procedure DO Denys Pearson Work Phone: [facility]-Ultrasound Cntr for Breast Car Start: 03-30-2022 End: 03-30-2022 ambulatory Shaun Aviles Other [facility] Other Start: 03-30-2022 Telephone encounter Shaun Aviles [facility] [place] Start: 03-28-2022 End: 03-28-2022 ambulatory Shaun Aviles Other [facility] Other Start: 03-28-2022 Office outpatient vi sit 25 minutes Shaun Aviles [facility] [place] Start: 02-16-2022 End: 02-16-2022 ambulatory Shaun Aviles Other [facility] Other Start: 02-16-2022 Telephone encounter Shaun Aviles [facility] [place] Start: 01-19-2022 End: 01-19-2022 ambulatory Shaun Aviles Other [facility] Other Start: 01-19-2022 Office outpatient vi sit 25 minutes Shaun Aviles [facility] [place] Start: 01-19-2022 Telephone encounter Shaun Aviles [facility] [place] Start: 01-13-[address] GHANSHYAM NIETO Facility :[facility] Start: 12-28-2021 End: 12-29-[address] GHANSHYAM NIETO [place] [facility] Other Start: 12-28-2021 Telephone encounter Shaun Aviles [facility] Start: 12-15-2021 End: 12-15-2021 ambulatory Shaun Aviles Other [facility] Other Start: 12-15-2021 Office outpatient vi sit 25 minutes Shaun Aviles [facility] [place] Start: 11-28-2021 End: 11-28-2021 ambulatory Shaun Aviles Other [facility] Other Start: 11-28-2021 Telephone encounter Shaun Aviles [facility] [place] Start: 11-24-2021 End: 11-24-2021 ambulatory Shaun Aviles Other [facility] Other Start: 11-24-2021 Telephone encounter Shaun Aviles [facility] [place] Start: 11-23-2021 End: 11-23-[address] DOCTOR GLASER Facility:[facility] Start: 11-15-2021 End: 11-16-[address] SHAUN AVILES Facility:[facility] Start: 11-07-2021 End: 11-07-2021 ambulatory Shaun Aviles Other [facility] Other Start: 11-07-2021 Office outpatient vi sit 25 minutes Shaun Aviles [facility] Start: 09-28-2021 End: 09-29-[address] SHAUN AVILES Facility: Start: 09-26-2021 End: 09-26-2021 ambulatory Shaun Aviles Other Located [facility] Other Start: 09-26-2021 Office outpatient vi sit 25 minutes Shaun Aviles [facility] Start: 11-29-2015 End: 11-29-2015 Patient encounter procedure UNKNOWN PROVIDER Facility:[facility] Procedures Date Procedure Procedure Detail Performing [...] Date Care Activity Detail Author Start: 08-22-2023 [facility] Start: 08-15-2023 Ova and Parasite Concentrate Exam Ova and Parasite Concentrate Exam [facility] Bacteria identified in Stool by Culture [facility] Calprotectin [Mass/m ass] in Stool [facility] Comprehensive metabo lic 1999 panel - Serum or Plasma [facility] Elastase.pancreatic [Mass/mass] in Stool [facility] Endomysial antibody IgA level [facility] Gliadin peptide IgA Ab [Units/volume] in Serum [facility] Gliadin peptide IgG Ab [Units/volume] in Serum [facility] HIV 1+2 Ab+HIV1 p24 Ag [Presence] in Serum or Plasma by Immunoassay [facility] IgA [Mass/volume] in Serum or Plasma [facility] Ova and parasites identified in Unspecified specimen by Light microscopy [facility] Patient Education Hemorrhoids (DC) [facility] Work Phone: Tissue transglutamin ase IgA Ab [Units/volume] in Serum [facility] Tissue transglutamin ase IgG Ab [Units/volume] in Serum [facility] Immunizations Immunization Date Immunization Notes Care Provider Fa cility NEGATED: Highlighted row has not occurred!09-17-2019 influenza, seasonal, injectable Patient Objection Shaun Aviles Other [place] [employer] Other Payers Date Payer Category Payer Medicaid [id number] [id number] 2014 Medicaid [id number] 1997 Unknown [id number] 2.16.84 [id number] 1997 Unknown [id number] 2.16.84 0.1.078082.3.579.2.593 1997 Unknown [id number] 2.16.84 0.1.158922.3.579.2.593 1997 Unknown [id number] 2.16.84 0.1.315648.3.579.2.593 1997 Unknown [id number] 2.16.84 0.1.969300.3.579.2.593 1997 Unknown [id number] 2.16.84 0.1.911565.3.579.2.593 1997 Unknown [id number] 2.16.84 0.1.821777.3.579.2.593 1997 Unknown [id number] 2.16.84 0.1.667885.3.579.2.593 1997 Unknown [id number] 2.16.84 0.1.597848.3.579.2.593 1997 Unknown [id number] 2.16.84 0.1.469532.3.579.2.593 1997 Unknown [id number] 2.16.84 0.1.855275.3.579.2.593 1997 Unknown [id number] 2.16.84 0.1.057355.3.579.2.593 1997 Unknown [id number] 2.16.84 0.1.409287.3.579.2.593 1997 Unknown [id number] 2.16.84 0.1.472345.3.579.2.593 1997 Unknown [id number] 2.16.8 40.1.572656.3.579.2.727 1959 Self-pay [id number] 1957 Unknown [id number] 2.1 [id number] Unknown [id number] 2.16.8 40.1.941966.3.579.2.531 Unknown [id number] 2.16.8 40.1.418091.3.579.2.531 Unknown [id number] 2.16.8 40.1.884478.3.579.2.531 Unknown [id number] 2.16.8 40.1.131627.3.579.2.531 Unknown [id number] 2.16.8 40.1.075298.3.579.2.531 Social History Date Type Detail Facility Unknown if ever smoked [facility] Other Sex Assigned At Located Within [facility] Other Tobacco Vaping [facility] Comment on above: vapes daily Start: 1995 Sex Assigned At Female [facility] Tobacco smoking status No Smokin g Status Entered [facility] Start: 08-22-2023 Tobacco smoking stat [facility] Smoker (finding) [facility] Start: 12-27-2023 Tobacco smoking stat [facility] Never smoked tobacco (finding) [facility] Goals Date Patient Goal Desired Activity /State Functional Status Date Assessment Result Facility 07-01-2023 Functional Status N/A [facility] 04-28-2022 Functional Status N/A [facility] Clinical Notes 09-26-2021 to 10-16-2023 Note Date [...] She can use Pepcid OTC as needed. [facility] Other [facility]* Encounter Date Diagnosis Assessment [...] Dr. Storey. We will continue to monitor. [facility] Other 10-02-2023 Evaluation note* Encounter Date Diagnosis [...] STOOL STUDIES AND COLONOSCOPY AT THIS TIME. [facility] Other 09-24-2023 Hospital Discharge instructions Patient Education 07/01/2023 20:46:37 Pelvic Pain, Female, Vyik-wg-Pxku Pelvic Pain, Female Pelvic pain is pain [...] known. Follow these instructions at home: Take tjju-zfj-zpqnfdo and prescription medicines only as told by [...] provider. Document Revised: 01/31/2022 Document Reviewed: 01/31/2022 ROVOP Patient Education 2022 [employer]. Follow Up Care 07/01/2023 17:51:29 With:Ghanshyam NIETO Address: [address] [place] [address]- Business (1) When:07/04/2023 20:46:14 Comments:Call the office first thing Sunday With:SHWETA GONZALEZ Address:Unknown When:Within 3 Day(s) [facility]09-24-2023 Evaluation + Plan noteExtracted from: Title:ED [...] Diagnostic Tests Pending * Urine Culture 07/01/23 [facility]05-30-2023 Evaluation note* Encounter Date Diagnosis Assessment [...] L70.9) Patient is interested in seeing a occ therapist for acne, I am agreeable. Referral initiated. [facility] Other 11-14-2022 Evaluation note* Encounter Date Diagnosis [...] prescribing a scheduled benzodiazapine. She verbalized understanding. [facility] Other 09-23-2022 NoteOPERATIVE NOTE OPERATION DATE: 06/30/2022 PROCEDURE: Khalida endometrial ablation hysteroscopy with bilateral laparoscopic salpingectomy. PREOPERATIVE DIAGNOSIS: Menorrhagia, desire permanent sterilization, multiparity. POSTOPERATIVE DIAGNOSIS: Menorrhagia, desire permanent sterilization, multiparity. ANESTHESIA: General. SURGEON: Ghanshyam Nieto D.O. 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 [...] lap and needle counts were correct [id number] Discharge instructions Patient Education 04/28/2022 16:54:37 [...] safe place to keep a gun, local [facility] may store a gun for you. Make [...] mental health organizations such as the National [place] on Mental Illness (AVRIL): www.avril.org Get help [...] 02/05/2018 Document Revised: 01/15/2020 Document Reviewed: 02/05/2018 ROVOP Patient Education 2020 [employer]. 04/28/2022 16:54:37 Managing Anxiety, Adult Managing Anxiety, [...] care provider. Avoid caffeine, alcohol, and certain karz-wxx-cwarrdo cold medicines. These may make you feel worse. Ask your pharmacist which medicines to avoid. General instructions Take ekuz-hfr-vxmvgmd and prescription medicines only as told by [...] Depression Association of [place] (ADAA): www.adaa.org National [place] on Mental Illness (AVRIL): www.avril.org Contact a [...] 09/18/2017 Document Revised: 02/24/2020 Document Reviewed: 02/24/2020 ROVOP Patient Education 2019 [employer]. [facility] 04/28/2022 16:03:48 With:SHWETA GONZALEZ Address:Unknown When:05/01/2022 16:39:14 Comments:Follow-up with your primary care provider in 3 to 5 days. If symptoms worsen, do not improve, or new symptoms arise please report back to emergency department for further evaluation. Continue to keepyour appointment with your psychiatrist on Sunday as well. [facility]07-22-2022 Evaluation + Plan noteExtracted from: Title:ED Note Author:Gamaliel Amos PA-C te:04/28/22 Anxiety (F41.9: Anxiety diso rder, unspecified) Orders: alprazolam, 0.5 mg = 1 tab(s), Oral, TID, PRN for anxiety, X 3 day(s), # 12 tab(s), Refills(s) 0, Pharmacy: [id number], 160, cm, 04/28/22 16:08:00 EDT, Height/Length Dosing, 63, kg, 04/28/22 16:08:00 EDT, Weight Dosing [facility]06-21-2022 Evaluation note* Encounter Date Diagnosis Assessment [...] Somatic dysfunction of rib (ICD-10 - M99.08) [facility] Other 04-14-2022 Evaluation note* Encounter Date Diagnosis [...] with him and the specialist as scheduled. [facility] Other 04-14-2022 Evaluation note* Encounter Date Diagnosis Assessment Notes Treatment Notes Treatment Clinical Notes Jan, Anxiety with depression (ICD-10 - F41.8) Jan, Borderline personality disorder (ICD-10 - F60.3) Jan, PTSD (post-traumatic stress disorder) (ICD-10 - F43.10) [facility] Other 03-10-2022 Evaluation note* Encounter Date Diagnosis [...] stools are normal, as they were prior. [facility] Other 02-09-2022 History general Narrative - Reported* Type Description Date Medical History anxiety and depression Medical History bipolar disorder Medical History 11/16/21 abnormal mammogram Surgical History T&A 2015? Surgical History bladder stretched 2014 Surgical History Natural childbirth 2018 Hospitalization History see above Hospitalization History psychiatric 3-day stay 2 016 Hospitalization History Childbirth 2018 [facility] Other 02-09-2022 History general Narrative - Reported* Type Description Date Medical History anxiety and depression Medical History bipolar disorder Medical History 11/16/21 abnormal mammogram Surgical History T&A 2015? Surgical History bladder stretched 2014 Surgical History Natural childbirth 2018 Surgical History Tubal ligation/ ablation 06/2022 Hospitalization History see above Hospitalization History psychiatric 3-day stay 2 016 Hospitalization History Childbirth 2018 [facility] Other 01-31-2022 Evaluation note* Encounter Date Diagnosis [...] used to follow with a couselor at [facility] counseling and recovery but has not seen [...] referred to Psychiatrist Dr. James Cosme in [place] and is currently scheduled 12/27/2021 which I [...] N64.52) Oct, Breast pain (ICD-10 - N64.4) [facility] Other 12-20-2021 Evaluation note* Encounter Date Diagnosis Assessment Notes Treatment Notes Treatment Clinical Notes Sep, Anxiety (ICD-10 - F41.9) The patient admits she has been hesitant to reach out regarding her anxiety due to her past experiences with child services and fear of them taking her 3.5 year old due to her mental health. She reports not having a good experience with [facility]ing [facility]. I did suggest she [...] disorder (ICD-10 - Z13.29) Blood work ordered. [facility] Other Evaluation noteNo InformationNort [facility] Other Evaluation noteNo assessment information available [facility] Work Phone: Evaluation noteNort [employer] Other Evaluation note* Diagnosis Onset Date Resolution Status Difficulty sleeping acute Fibroadenoma of left breast acute Irritable bowel syndrome with diarrhea acute Schizophrenia acute [facility] Work Phone: Evaluation note* Author Lj Stanton [facility] Authored April 15, 2024 2:20p m Patient is positive for abdo nelson pain, dyspepsia, specifically abdominal pain in the epigastric region as well as appetite suppression [facility] Work Phone: History and physical note Author Willie Lambert [facility] August 22, 2023 9:21am Note Date/Time August 22, 2023 9:21am [facility] [address] [place], [place] [id number] Gastroenterology H&P Signed Patient: Brian Sullivan MR#: [id number] : 1995 Acct:[id number] Age/Sex: 27 / F Adm Date: 3 Loc: Room: Type: [facility] Attending Dr: Willie Lambert MD Copies to: [...] <Electronically signed by Willie Lambert MD> 08/22/23920 [facility] Work Phone: History general Narrative - Reported* Type Description Date Medical History anxiety and depression Medical History bipolar disorder Surgical History T&A 2015? Surgical History bladder stretched 2014 Surgical History Natural childbirth 2018 Hospitalization History see above Hospitalization History psychiatric 3-day stay 2 016 Hospitalization History Childbirth 2018 Located Within [facility] Other History [facility] - [facility] Other Hospital course Narrative No data available for this section [facility] Additional Instructions DISCHARGE INSTRUCTIONS [...] problems. -Follow up with PCP. -Office number [phone].[facility] Work Phone: Progress note No data available for this section [facility] for visit Narrativediscuss meds for dental procedureNofreeman orthopaedics & sports medicine [employer] Other Summary Purpose Family History Relationship Condition [...] unspecified ac ne type (L70.9) Referral Organization [facility] Referring Provider First Name Shaun Referring Provider Last Name Traci Referring Provider [facility]erred Address [address],[address] Referred Provider Specialty Dermatology Referral Priority Routine [...] them. Referral was fax Clinical Notes Office [phone] Reason *Waiting for appt consult and treat Diagnosis 1 Coccyx pain (M53.3) Referral Organization [facility] Family [facility]in [facility] Referring Provider First Name Shaun Referring Provider Last Name Traci Referring Provider Specialty Family Prac [place] Referred Organization [facility] Pain Managemen t [facility] [place] Referred Provider Rell Marinelli Referred Address [address] [place],[address] Referred Provider Specialty Pain Medicin e Referral Priority Routine General Notes Abbey Parikh 023 08:18:19 AM >Received today and sent P2P Reason 02/02/22 @ 11:30am consult and treat марина ; anxiety with depression BPD PTSD Diagnosis 1 Anxiety with depress ion (F41.8) Diagnosis 2 Borderline personali ty disorder (F60.3) Diagnosis 3 PTSD (post-traumatic stress disorder) (F43.10) [facility]erring Provider First Name Shaun Referring Provider Last Name Traci Referring Provider Specialty Family Prac [place] Referred Organization [facility] Referred Address [address],[place],[address] Referred Provider Specialty Psychiatry Referral Priority Routine Referral Appointment Date 2022-02-02 General Notes Jacqueline Brooks 2021 02:52:37 PM >referral printed and faxed to [phone] along with OV notes from 09/26/2021, 12/15/2021, [...] 3 Nipple discharge (N6 4.52) Referral Organization [facility] Family Medic[facility] Referring Provider First Name Shaun Referring Provider Last Name Traci Referring Provider Specialty [facility] Prac [place] Referred Organization [facility] Referred Provider Denys Pearson Referred Address ,[place], [place],[address] Referred Provider Specialty Surgery Referral Priority Routine [...] 2 Hearing voices (R44. 0) Referral Organization [facility] Rose Bailey Referring Provider First Name Shaun Referring Provider Last Name Traci Referring Provider Specialty Family Prac [place] Referred Organization Unknown Facility Referred Provider Specialty Psychiatry Referral Priority Routine General Notes Jacqueline Brooks 2020 01:12:01 PM > per [facility]- NOT [facility] counseling and recovery- Needs seen by a psychiatrist group. [place].Abbey Parikh 09/26/2021 01:59:20 PM >Reviewed a Dr. James Cosme MD. That is in [place] but goes to [place]. Will fax referral there and patient can choose which office to go to when they call her. Will fax once office notes is locked Clinical Notes Office [phone] Chief Complaint and Reason for Visit [...] CREATED AUTHOR AUTHOR'S ORGANIZ ATION 07/11/2023 Panchal Bandera [facility] DATE CREATED AUTHOR AUTHOR'S ORGANIZ ATION 01/23/2024 [facility] REASON FOR VISIT (unrecogniz [...] BE BASED ON THE PRIMARY CLINICAL RECORDS. [employer] provides no warranty or guarantee of the accuracy or completeness of information in this document.
[2024-05-19 15:44] LABS: C. Difficile PCR NEGATIVE (NEGATIVE)
[2024-05-20 15:09] LABS: Giardia lamblia Ag, EIA Negative (Negative)
== END 2024-05-19 12:43 | disposition home or self-care (01) ==
LOC: LAB 12:42
PROVIDERS: PCP Family Medicine; Visit Provider Internal Medicine
DX: R19.7 Diarrhea, unspecified (principal)
CPT/HCPCS: 87045; 87046; 87329; 87427; 87493

== ENCOUNTER 2025-01-05 20:45 | Outpatient (REF) | payer OTHER, SELFPAY ==
--- OUTSIDE RECORDS SUMMARY | 2025-01-05 20:49 | XMS_ITS | CCD ---
Author Organization [facility] Care Team Providers Care Computer Forwarding System Markup Clerk Name Role Phone PROVIDER, UNKNOWN Admitting Unavailable PATIENT, SELF Referring Unavailable BELKYS CARABALLO Attending Unavailable Shaun Aviles Unavailable SHWETA GONZALEZ Primary Care Physician Unavailab DO Denys Camejo Attending Provider DO Shaun Aviles Primary Care Provider Ghanshyam Nieto Referring Provider TRACI, DR DUNN Primary Care Unavailable EMILIA, DR CHACON Consulting Unavailable EMILIA, DR CHACON Attending Unavailable EMILIA, DR CHACON Admitting Unavailable ZIEBER, DR ILENE Myers Consulting Unavailable TRACI, DR DUNN Primary Care Unavailable TRACI, DR DUNN Consulting Unavailable TRACI, DR DUNN Attending Unavailable TRACI, DR DUNN Admitting Unavailable EMILIA, DR CHACON Attending Unavailable MISC, DR JOHNSON Primary Care Unavailable EMILIA, DR CHACON Admitting Unavailable MISC, DR JOHNSON Primary Care Unavailable EMILIA, DR CHACON Admitting Unavailable EMILIA, DR CHACON Consulting Unavailable EMILIA, DR CHACON Attending Unavailable ADA, KYLE Consulting Unavailable SHARP LYLA Consulting Unavailable GEMBUSRONITEL Consulting Unavailable MISC, DR JOHNSON Primary Care Unavailable EMILIA, DR CHACON Admitting Unavailable EMILIA, DR CHACON Consulting Unavailable EMILIA, DR CHACON Attending Unavailable MISC, DR JOHNSON Primary Care Unavailable EMILIA, DR CHACON Admitting Unavailable EMILIA, DR CHACON Attending Unavailable MISC, DR JOHNSON Primary Care Unavailable ALECIA CABRERA Consulting Unavailable ALECIA CABRERA Attending Unavailable ALECIA CABRERA Admitting Unavailable TRACI, DR DUNN Primary Care Unavailable INES OJEDA Attending Unavailable INES OJEDA Admitting Unavailable INES OJEDA Consulting Unavailable ZIEBANOOP, DR ILENE Myers Consulting Unavailable KUNS, DR DUNN Primary Care Unavailable CRYSTAL, DR MANJARREZ Attending Unavailable HAY, DR MANJARREZ Admitting Unavailable GRECHRYAN, JUANJO VELOZ Consulting Unavailable HAY, DR MANJARREZ Consulting Unavailable KUNS, DR DUNN Attending Unavailable KUNS, DR DUNN Admitting Unavailable RILEY, DR MELINDA Blake Consulting Unavailable KUNS, DR DUNN Primary Care Unavailable ZIEBER, DR ILENE Myers Consulting Unavailable KUNS, DR DUNN Consulting Unavailable EMILIA, DR CHACON Attending Unavailable MISC, DR JOHNSON Primary Care Unavailable EMILIA, DR CHACON Admitting Unavailable EMILIA, DR CHACON Consulting Unavailable EMILIA, DR CHACON Attending Unavailable EMILIA, DR CHACON Admitting Unavailable EMILIA, DR CHACON Consulting Unavailable MISC, DR JOHNSON Primary Care Unavailable MISC, DR JOHNSON Primary Care Unavailable EMILIA, DR CHACON Admitting Unavailable EMILIA, DR CHACON Consulting Unavailable EMILIA, DR CHACON Attending Unavailable ZIEBER, DR ILENE Myers Consulting Unavailable Kuns, Shaun Primary Care Provider Michel, DO Mcfarlane Attending Provider Nicoláss, DO Loweryan Primary Care Provider Michel, DO Mcfarlane Attending Provider Nicoláss, DO Dunn Attending Provider [phone] Rell Marinelli Unavailable Lj Stanton Unavailable Mirna Mcmullen Attending Unavailable Nicoláss, Shaun Primary Care Provider [phone] Kuns, DO Dunn Attending Provider Nicoláss, DO Shaun Primary Care Provider Traci, DO Dunn Attending Provider ERIKA Stanton Attending Provider MD Willie Lambert Attending Provider [phone] Willie Lambert Unavailable Traci, DO Dunn Primary Care Provider MD Gail Lawrence Attending Provider Traci, DO Dunn Attending Provider Kuns, DO Shaun Primary Care Provider [phone] CASSANDRA GONZALEZ Attending Unavailable Shaun Aviles MD Primary Care Provider DO Shaun Aviles Primary Care Provider MD Willie Lambert Attending Provider DO Shaun Aviles Attending Provider Kuns, Shaun Admitting Unavailable Kuns, Shaun Attending Unavailable Nicoláss, Shaun Primary Care Unavailable Kuns, Shaun Admitting Unavailable Traci, Shaun Attending Unavailable Traci, Shaun Primary Care Unavailable Willie Lambert Admitting Unavailable Willie Lambert Attending Unavailable Traci, Shaun Primary Care Unavailable Willie Lambert Admitting Unavailable Willie Lambert Attending Unavailable Shaun Aviles Primary Care Unavailable Gail Lawrence Admitting Unavailable Gail Lawrence Attending Unavailable Traci, Shaun Primary Care Unavailable Shaun Aviles DO Primary Care Provider Willie Lambert MD Attending Provider Shaun Aviles DO Attending Provider Allergies Allergy Classification Reported Allergen(s) Allergy Type Date of Onset Reaction(s) Facility Latex (1 source) Latex Substance Allergy 04-15-20 24 Rash [facility] NSAIDs (1 source) Ibuprofen Drug Allergy 04-15-20 24 Diarrhea, tongue sores [facility] Quinolones (antibiotic) (1 source) Ciprofloxacin Drug Allergy 04-15-20 24 phsychosis [facility] Sulfonamides (antibiotic) (2 sources) Sulfacetamide Drug Allergy 04-15-20 24 hives [facility] (20 sources) Ibuprofen; Translations: [IBUPROFEN] Drug Allergy 09-06-20 15 Hives, Unknown, [facility] ([facility]) Latex; Translations: [LATEX] Propensity to adverse reactions to drug (disorder) 09-06-20 15 Rash [facility] (6 sources) Sulfonamides (Antibiotic); Translations: [SULFA ANTIBIOTICS] Propensity to adverse reactions to drug (disorder) 09-06-20 15 [facility]ives, Unknown [facility] (20 sources) Sulfacetamide Drug Allergy 08-02-20 hives, Unknown [facility] (17 sources) Sulfonamides (Antibiotic); Translations: [Sulfa (Sulfonamide Antibiotics)] Allergy to substance 04-28-20 Unknown Reaction, Hives [facility] (2 sources) Adhesive agent Drug allergy (disorder) [facility] Rep[facility] (3 sources) Ibuprofen; Translations: [Motrin] Drug Allergy [facility] (2 sources) Sulfonamides (Antibiotic) Drug allergy (disorder) [facility] Rep[facility] (2 sources) Sulfonamides (Antibiotic); Translations: [sulfa drugs] Drug allergy Urticaria (disorder) [facility] (18 sources) Ciprofloxacin Drug Allergy 07-23-20 phsychosis [facility] Comment on above: Onset Date: 07/23/20 (1 source) Ciprofloxacin Drug Allergy 07-31-20 [facility] Repository (1 source) Sulfacetamide Drug Allergy 10-16-19 [facility] Repository Medications Current Medications Medication Drug Class(es) Dates Sig (Normalized) Sig (Original) acetaminophen 325 mg / oxyCODONE hydrochloride 5 mg oral tablet (1 source) Opioid Agonist Start: 07-01-2023 Percocet 5 mg-325 mg oral tablet 1 tab(s), Oral, q6hr, 5 tab(s), Refill(s) 0 Start Date: 07/01/23 Status: Ordered ALPRAZolam 1 mg oral tablet (20 sources) Benzodiazepine Start: 08-21-2023 End: 07-31-2024 Alprazolam (Xanax) 1 mg tablet Active 1 MG PO .prn as needed for Anxiety July 31, 2024 1:01pm Start: 07-26-2023 take 1 tablet by mamie [...] day(s), # 12 tab(s), Refills(s) 0, Pharmacy: [id number], 160, cm, 04/28/22 16:08:00 EDT, [...] Orally once a day PRN Sep, Active amoxicillin 875 mg oral tablet (2 sources) Penicillin-class Antibacterial Start: 07-10-2024 End: 07-20-2024 take 1 tablet by mouth in the morning amoxicillin (Amoxil) 875 MG tablet Indications: Dental infection Take 1 tablet (875 mg) by mouth in the morning and 1 tablet (875 mg) before bedtime. Do all this for 10 days. 20 tablet 07/10/2024 07/20/2024 Active {21 (desogestrel 0.15 MG / ethinyl estradiol 0.03 MG Oral Tablet) / 7 (inert ingredients 1 MG Oral Tablet) } Pack [Apri 28 Day] (4 sources) Progestin, Estrogen take 1 tablet by mouth every twenty-four hours Apri 0.15-30 MG-MCG 1 tablet Orally Once a day Active fluconazole 150 mg oral tablet (1 source) Azole Antifungal Start: 12-23-2024 Fluconazole 150 mg tablet Active 150 MG PO Q3D as needed for yeast December 23, 2024 12:00am lamoTRIgine 25 mg oral tablet (9 sources) Mood Stabilizer, Anti-epileptic Agent Start: 08-26-2024 Lamotrigine 25 mg tablet Active 50 MG PO August 26, 2024 1:00am take 1 tablet by mamie th once daily at bedtime LaMICtal 25 MG 1 tablets Orally QHS Not-Taking lumateperone 42 mg oral capsule (20 sources) Start: 08-21-2023 take 1 capsule by mouth once daily at bedtime Lumateperone (Caplyta) 42 mg capsule Active 42 MG PO Daily at bedtime August 21, 2023 1:00am Lumateperone Tosylate (CAPLYTA PO) (5 sources) Lumateperone Tosylate (CAPLYTA PO) Caplyta Active Lumateperone Tosylate (Caplyta) 10.5 MG capsule (5 sources) Lumateperone Tosylate (Caplyta) 10.5 MG capsule Caplyta Active Lili Root 500 MG (5 sources) Lili Root 500 MG as directed Orally Active metFORMIN hydrochloride 500 mg oral tablet (6 sources) Biguanide take 1 tablet by mouth every twenty-four hours metFORMIN HCl 500 MG 1 tablet with a meal Orally Once a day Active mirtazapine 45 mg oral tablet (20 sources) Start: 01-25-2024 End: 08-26-2024 take 1 tablet by mouth once daily Mirtazapine (Remeron) 15 mg tablet Discontinued 15 MG PO Daily January 25, 2024 12:00am August 26, 2024 2:44pm Start: 01-25-2024 End: 08-26-2024 take 1 tablet by mouth once daily Mirtazapine (Remeron) 30 mg tablet Discontinued 30 MG PO Daily January 25, 2024 12:00am August 26, 2024 2:44pm Start: 08-02-2023 End: 01-25-2024 take 1 tablet by mouth at bedtime mirtazapine (Remeron) 45 MG tablet Take 45 mg by mouth at bedtime. 08/02/2023 Active take 1 tablet by mamie th every twenty-four hours Remeron 15 MG 1 tablet Orally Once a day along with a 30 mg Active take 1 tablet by mamie th every twenty-four hours Remeron 30 MG 1 tablet Orally Once a day along with a 15 mg Active omeprazole 40 mg delayed release oral capsule ( sources) Proton Pump Inhibitor Start: 07-01-2024 End: 07-31-2024 Omeprazole 40 mg capsule,delayed release(DR/EC) Active 40 MG PO Daily July 31, 2024 1:09pm Take 1 capsule orally 30 minutes before morning meal. ondansetron 4 mg disintegrating oral tablet (15 sources) Serotonin-3 Receptor Antagonist Start: 12-06-2023 take 1 tablet by mouth every six hours as needed for nausea and vomiting Ondansetron 4 mg tablet,disintegratin g Active 4 MG PO Every 6 hours as needed for nausea and vomiting December 06, 2023 1:00am take 1 tablet by mamie th three times daily as needed for nausea Ondansetron 4 MG 1 tablet on the tongue and allow to dissolve Orally Three times a day as needed for nausea Active predniSONE 10 mg oral tablet (2 sources) Start: 07-10-2024 End: 07-18-2024 take 1 tablet by mouth three times daily, then take 1 tablet by mouth twice daily, then take 1 tablet by mouth once daily predniSONE (Deltasone) 10 MG tablet Indications: Dental infection Take 1 tablet (10 mg) by mouth 3 (three) times a day for 3 days, THEN 1 tablet (10 mg) 2 (two) times a day for 3 days, THEN 1 tablet (10 mg) Daily for 3 days. 18 tablet 07/10/2024 07/18/2024 Active SUMAtriptan 100 mg oral tablet (4 sources) Serotonin-1b and Serotonin-1d Receptor Agonist Start: 12-23-2024 take 1 tablet by mouth every two hours Sumatriptan Succinate 100 mg tablet Active 0 PO .COMPLEX December 23, 2024 12:00am take 1 tab at onset of headache; if no relief, may repeat 1 tab after at least 2 hrs; max = 2 tabs/24 hrs PO Start: 08-26-2024 End: 12-23-2024 take 1 tablet by mouth every two hours Sumatriptan Succinate 50 mg tablet Discontinued 0 PO .COMPLEX August 26, 2024 1:00am December 23, 2024 12:46pm take 1 tab at onset of headache; if no relief may repeat 1 tab after at least 2 hrs; max = 4 tabs/24 hr PO Zofran ODT 4 mg Tab-Dis (1 source) Start: 07-01-2023 take 1 tablet by mouth every eight hours Zofran ODT 4 mg Tab-Dis 4 mg = 1 tab(s), Oral, q8hr, # 10 tab(s), Refills(s) 0, Pharmacy: [id number], 160, cm, 07/01/23 17:58:00 EDT, [...] needed Orally every 6 hrs Mar, Not-Taking benzoyl peroxide 0.05 mg/mg / clindamycin phosphate 0.012 mg/mg topical gel (5 sources) Lincosamide Antibacterial Start: 04-18-2023 End: 01-05-2025 clindamycin-benzoy l peroxide (Duac) 1.2-5% gel Apply a pea size amount to face, extremities, and trunk once daily 04/18/2023 01/05/2025 Discontinued biotin 10 mg oral capsule (9 sources) Start: 01-29-2024 End: 11-11-2024 take 2 capsules by mouth once daily Biotin 10,000 mcg capsule Discontinued 44325 MCG PO Daily January 29, 2024 12:00am November 11, 2024 2:57pm Start: 01-29-2024 take 57146 ug by mouth once da iovnne Biotin Active 41894 MCG PO Daily January 29, 2024 12:00am dicyclomine hydrochloride 20 mg oral tablet (10 sources) Anticholinergic Start: 01-25-2024 End: 06-16-2024 take 1 tablet by mouth three times daily Dicyclomine 20 mg tablet Discontinued 1 TAB PO Three times daily January 25, 2024 12:00am June 16, 2024 1:35pm FreeTextSi tablet Orally Three times a day; Note: Source Status: Start; Refills: 11; Provider: Romy Underwood Start: 10-16-2023 take 1 tablet by mamie th every eight hours Dicyclomine HCl 20 MG 1 tablet Orally Three times a day for 30 days Oct, Active ethinyl estradiol 0.03 mg / norethindrone acetate 1.5 mg oral tablet (11 sources) Estrogen take 1 tablet by mouth every twenty-four hours Alpesh 1.5/30 1.5-30 MG-MCG 1 tablet Orally Once a day Not-Taking ISOtretinoin 20 mg oral capsule (9 sources) Retinoid Start: 01-29-20 End: 06-16-20 take 1 capsule by mouth once daily Isotretinoin (Accutane) 20 mg capsule Discontinued PO Daily January 29, 2024 12:00am June 16, 2024 1:35pm pantoprazole 40 mg delayed release oral tablet (13 sources) Proton Pump Inhibitor Start: 04-15-20 End: 07-01-20 take 1 tablet by mouth once daily Pantoprazole 40 mg tablet,delayed release (DR/EC) Discontinued 40 MG PO Daily April 15, 2024 12:00am July 01, 2024 2:19pm tiZANidine 4 mg oral tablet (6 sources) Central alpha-2 Adrenergic Agonist Start: 03-28-20 Zanaflex 4 MG 1-2 tablet as needed Orally at bedtime Mar, Not-Taking topiramate 50 mg oral tablet (9 sources) Start: 01-29-20 End: 04-15-20 take 1 tablet by mouth twice daily Topiramate (Topamax) 50 mg tablet Discontinued 50 MG PO Twice daily January 29, 2024 12:00am April 15, 2024 2:06pm Toradol 30 mg/ml (20 sources) Start: 03-30-20 Start: 03-30-2022 Toradol 30 mg/ ml Mar, 60 mg Start: 03-28-2022 Start: 03-28-2022 Toradol 30 mg/ ml Mar, 60 mg Problems Active Problems Problem Classification Problem Date Documented Da te Episodic/Chronic Abdominal pain (20 sources) Pelvic and perineal pain; Translations: [Pelvic and perineal pain] Onset: Episodic Anxiety disorders (20 sources) Mixed anxiety and depressive disorder; Translations: [Other specified anxiety disorders] Onset: 1 Resolved: 2 Chronic Contraceptive and procreative management (2 sources) Tubal ligation status; Translations: [Encounter for sterilization] Onset: 2 Episodic Deficiency and other anemia (20 sources) Anemia; Translations: [Anemia, unspecified] Episodic Disorders of lipid metabolism (11 sources) Hyperlipidemia; Translations: [Hyperlipidemia, unspecified] 01-29-2024 Chronic Disorders of teeth and jaw (2 sources) Infection of tooth; Translations: [Periapical abscess without sinus] 07-10-2024 Episodic Esophageal disorders (3 sources) Gastroesophageal reflux disease; Translations: [Gastro-esophageal reflux disease without esophagitis] 11-11-2024 Chronic Gastrointestinal hemorrhage (8 sources) Rectal hemorrhage; Translations: [Hemorrhage of anus and rectum] Episodic Headache; including migraine (6 sources) Frequent headache; Translations: [Frequent headaches] 08-26-2024 Episodic Hemorrhoids (17 sources) Hemorrhoids; Translations: [Unspecified hemorrhoids] 04-15-2024 Episodic Intestinal infection (1 source) Clostridium difficile diarrhea 06-02-2022 Episodic Comment on above: Problem added second flakito to documenting Active C-Diff. Menstrual disorders (6 sources) Excessive and frequent menstruation with irregular cycle; Translations: [Dysmenorrhea, unspecified] Onset: 2 Chronic Mood disorders (1 source) Major depressive disorder, single episode, unspecified; Translations: [CRESENCIO DEPRESS D/O SINGLE EPIS UNS] Onset: 2 Chronic Mycoses (1 source) Candidiasis of vagina; Translations: [Vaginal yeast infection] 12-23-2024 Episodic Nausea and vomiting (12 sources) Nausea; Translations: [Nausea] 06-16-2024 Episodic Nonmalignant breast conditions (20 sources) Discharge from nipple; Translations: [Nipple discharge] Onset: 2 Resolved: 2 Episodic Nutritional deficiencies (20 sources) Vitamin D deficiency; Translations: [Vitamin D deficiency, unspecified] Onset: 2 Resolved: 2 Chronic Other aftercare (1 source) Other bed bug exterminator (current) drug therapy; Translations: [OTH PRODUCT ASSEMBLER CURRENT DRUG THERAPY] Onset: 2 Episodic Other and unspecified benign neoplasm (9 sources) Benign neoplasm of left breast; Translations: [Benign neoplasm of breast] Onset: 4 Episodic Other and unspecified benign neoplasm (4 sources) Fibroadenoma of breast; Translations: [Benign neoplasm of left breast] 01-29-2024 Episodic Other gastrointestinal disorders (9 sources) Irritable bowel syndrome with diarrhea; Translations: [Irritable bowel syndrome with diarrhea] 01-29-2024 Chronic Other gastrointestinal disorders (9 sources) Irritable bowel syndrome; Translations: [Irritable bowel syndrome without diarrhea] 01-29-2024 Chronic Other gastrointestinal disorders (12 sources) Irritable bowel syndrome with diarrhea; Translations: [Irritable bowel syndrome] 01-29-2024 Chronic Other gastrointestinal disorders (5 sources) Constipation alternates with diarrhea; Translations: [Other specified symptoms and signs involving the digestive system and abdomen] Episodic Other gastrointestinal disorders (3 sources) Other specified symptoms and signs involving the digestive system and abdomen Episodic Other gastrointestinal disorders (1 source) Heartburn Episodic Other gastrointestinal disorders (12 sources) Dysphagia; Translations: [Dysphagia, unspecified] 06-16-2024 Episodic Other gastrointestinal disorders (9 sources) Dysphagia, unspecified; Translations: [Dysphagia, unspecified] 06-16-2024 Episodic Other lower respiratory disease (9 sources) Cough; Translations: [Cough] Episodic Other lower respiratory disease (8 sources) Breathing painful; Translations: [Pleurodynia] Episodic Other nervous system disorders (20 sources) Chronic pain; Translations: [Other chronic pain] 12-06-2023 Chronic Other nervous system disorders (1 source) Other chronic pain Chronic Other nervous system disorders (17 sources) Paresthesia of hand ; Translations: [Paresthesia of skin] Episodic Other nervous system disorders (4 sources) Other acute postprocedural pain; Translations: [OTHER ACUTE POSTPROCEDURAL PAIN] Onset: 2 Episodic Other nutritional; endocrine; and metabolic disorders (8 sources) Weight loss; Translations: [Abnormal weight loss] Episodic Other screening for suspected conditions (not mental disorders or infectious disease) (20 sources) Mammography abnormal; Translations: [Other abnormal and inconclusive findings on diagnostic imaging of breast] Onset: 1 Resolved: 2 Episodic Other skin disorders (20 sources) Acne; Translations: [Acne, unspecified] 12-06-2023 Episodic Other skin disorders (1 source) Acne, unspecified Episodic Other upper respiratory infections (15 sources) Upper respiratory infection; Translations: [Acute upper respiratory infection, unspecified] Episodic Personality disorders (20 sources) Borderline personality disorder; Translations: [Borderline personality disorder] Onset: 2 Resolved: 2 Chronic Phlebitis; thrombophlebitis and thromboembolism (5 sources) Acute embolism and thrombosis of other specified veins; Translations: [ACUTE EMBO THROMB OTH SPEC VEINS] Onset: 2 Episodic Residual codes; unclassified (20 sources) Insomnia; Translations: [Insomnia, unspecified] 12-06-2023 Episodic Residual codes; unclassified (20 sources) Verbal auditory hallucinations; Translations: [Auditory hallucinations] Episodic Residual codes; unclassified (1 source) Other specified postprocedural states; Translations: [OTH SPECIFIED POSTPROCEDURAL STATES] Onset: 2 Episodic Residual codes; unclassified (9 sources) Difficulty sleeping ; Translations: [Sleep disorder, unspecified] 01-29-2024 Episodic Residual codes; unclassified (2 sources) Sleep disorder, unspecified; Translations: [Sleep disturbance, unspecified] 01-29-2024 Episodic Schizophrenia and other psychotic disorders (20 sources) Schizophrenia; Translations: [Schizophrenia, unspecified] Chronic Spondylosis; intervertebral disc disorders; other back problems (20 sources) Neck pain; Translations: [Cervicalgia] Onset: 2 Resolved: 2 Episodic Substance-related disorders (1 source) Smoker 06-02-2022 Chronic Comment on above: Added secondary to d ocumentation in Social History. Unclassified (1 source) CONTACT W/AND (SUSP) EXPOS COVID-19; Translations: [CONTACT W/AND (SUSP) EXPOS COVID-19] Onset: 2 Unclassified (1 source) Pyuria; Translations: [PYURIA] Onset: 2 Unclassified (1 source) Hemorrhage of anus and rectum; Translations: [Hemorrhage of anus and rectum] Onset: 3 Past or Other Problems Problem Classification Problem [...] human papillomavirus (HPV)] Onset: 12-28-2021 Episodic Other aftercare (5 sources) Patient encounter status; Translations: [Encounter for follow-up examination after completed treatment for conditions other than malignant neoplasm] Onset: 06-04-2023 06-04-2023 Episodic Other bone disease and musculoskeletal deformities [...] Translations: [DIARRHEA UNSPECIFIED] Onset: 11-23-2021 Episodic Other infections; including parasitic (1 source) [...] WEIGHT LOSS] Onset: 09-26-2021 Resolved: 11-07-2021 Episodic Other skin disorders (1 source) Acne vulgaris; Translations: [Acne vulgaris] Onset: 12-27-2023 Episodic Residual codes; unclassified (4 sources) Insomnia, unspecified Onset: 09-26-2021 Resolved: 03-28-2022 Episodic Residual codes; unclassified (2 sources) Auditory hallucinations Onset: 09-26-2021 Resolved: 11-07-2021 Episodic Unclassified (1 source) Other low back pain M54.59 Results Test Name Value Interpretation Reference Range Facility HCG ( test) Ql (U)o n 01-05-2025 Interpretation and review of laboratory results Normal [facility] Preg Test, Ur Negative Negative [facility] Alanine aminotransferase [En zymatic activity/volume] in Serum or PlasmaOrdered By: Shaun Aviles on 08-05-2024 ALT [Catalytic activity/Vol] 10 U/L Normal [facility] Comment on above: Performed By: #### C ORT, TSH3, [id number], LIPID, CMP, T4F #### [facility] [address] ALT [Catalytic activity/Vol] Alanine aminotransferase [Enzymatic activity/volume] in Serum or Plasma [facility] Albumin [Mass/volume] in Ser um or Plasma by Bromocresol green (BCG) dye binding methoOrdered By: Shaun Aviles on 08-05-2024 Albumin BCG dye [Mass/Vol] 4.3 g/dL 3.5-5.7 [facility] Albumin BCG dye [Mass/Vol] Albumin [Mass/volume] in Serum or Plasma by Bromocresol green (BCG) dye binding metho 3.5-5.7 [facility] Alkaline phosphatase [Enzyma tic activity/volume] in Serum or PlasmaOrdered By: Shaun Aviles on 08-05-2024 ALP [Catalytic activity/Vol] 111 U/L High 34-104 [facility] Comment on above: Performed By: #### C ORT, TSH3, [id number], LIPID, CMP, T4F #### [facility] [address] ALP [Catalytic activity/Vol] Alkaline phosphatase [Enzymatic activity/volume] in Serum or Plasma High 34-104 [facility] Aspartate aminotransferase [ Enzymatic activity/volume] in Serum or PlasmaOrdered By: Shaun Aviles on 08-05-2024 AST [Catalytic activity/Vol] 15 U/L Normal 13-39 [facility] Comment on above: Performed By: #### C ORT, TSH3, [id number], LIPID, CMP, T4F #### [address] AST [Catalytic activity/Vol] Aspartate aminotransferase [Enzymatic activity/volume] in Serum or Plasma [facility] Automated basophil %Ordered By: Shaun Aviles on 08-05-2024 Basophils/100 WBC (Bld) 0.3 % Normal . [facility] Comment on above: Performed By: #### C BC #### [address] Automated basophil countOrde red By: Shaun Aviles on 08-05-2024 Basophils (Bld) [#/Vol] 0.0 10*3/uL Normal 0.0-0.2 [facility] Comment on above: Result Comment: PERF ORMED BY: [place] [address] PATHOLOGIST FIELD OPERATIONS COORDINATOR ALBA SCHULTE M.D. Performed By: #### C BC #### [address] Automated blood monocyte cou ntOrdered By: Shaun Aviles on 08-05-2024 Monocytes (Bld) [#/Vol] 0.5 10*3/uL Normal 0.0-0.8 [facility] Comment on above: Performed By: #### C BC #### [address] Automated eosinophil %Ordere d By: Shaun Aviles on 08-05-2024 Eosinophils/100 WBC (Bld) 0.0 % Normal . [facility] Comment on above: Performed By: #### C BC #### [address] Automated eosinophil countOr dered By: Shaun Aviles on 08-05-2024 Eosinophils (Bld) [#/Vol] 0.0 10*3/uL Normal 0.0-0.45 [facility] Comment on above: Performed By: #### C BC #### [facility] [address] Automated monocyte %Ordered By: Shaun Aviles on 08-05-2024 Monocytes/100 WBC (Bld) 6.8 % Normal . [facility] Comment on above: Performed By: #### C BC #### [facility] [address] Automated neutrophil %Ordere d By: Shaun Aviles on 08-05-2024 Neutrophils/100 WBC (Bld) 68.8 % Normal . [facility] Comment on above: Performed By: #### C BC #### [facility] [address] Basophils Auto (Bld) [#/Vol] Ordered By: Shaun Aviles on 08-05-2024 Basophils (Bld) [#/Vol] Automated basoph il count 0.0-0.2 [facility] Basophils/100 WBC Auto (Bld) Ordered By: Shaun Aviles on 08-05-2024 Basophils/100 WBC (Bld) Automated basophil % . [facility] Bilirubin.total [Mass/volume ] in Serum or PlasmaOrdered By: Shaun Aviles on 08-05-2024 Bilirubin [Mass/Vol] 0.4 mg/dL Normal 0.3-1.0 [facility] Comment on above: Performed By: #### C ORT, TSH3, [id number], LIPID, CMP, T4F #### [address] Bilirubin [Mass/Vol] Bilirubin.total [Mass/volume] in Serum or Plasma 0.3-1.0 [facility] Calcium [Mass/volume] in Ser um or PlasmaOrdered By: Shaun Aviles on 08-05-2024 Calcium [Mass/Vol] 9.7 mg/dL Normal 8.6-10.3 [facility] Comment on above: Performed By: #### C ORT, TSH3, [id number], LIPID, CMP, T4F #### [address] Calcium [Mass/Vol] Calcium [Mass/volume ] in Serum or Plasma 8.6-10.3 [facility] Carbon dioxide, total [Moles /volume] in Serum or PlasmaOrdered By: Shaun Aviles on 08-05-2024 CO2 [Moles/Vol] 28.3 mmol/L Normal 21.0-31.0 [facility] Comment on above: Performed By: #### C ORT, TSH3, [id number], LIPID, CMP, T4F #### [facility] [address] [place] [id number] [facility] CO2 [Moles/Vol] Carbon dioxide, tota l [Moles/volume] in Serum or Plasma 21.0-31.0 [facility] Chloride [Moles/volume] in S kimo or PlasmaOrdered By: Shaun Aviles on 08-05-2024 Chloride [Moles/Vol] 105 mmol/L Normal 98-107 [facility] Comment on above: Performed By: #### C ORT, TSH3, [id number], LIPID, CMP, T4F #### [facility] [address] [place] [id number] [facility] Chloride [Moles/Vol] Chloride [Moles/volume] in Serum or Plasma 98-107 [facility] Cholesterol [Mass/volume] in Serum or PlasmaOrdered By: Shaun Aviles on 08-05-2024 Cholesterol [Mass/Vol] 153 mg/dL Normal 140-200 [facility] Comment on above: Chol less than 200 m g/dl low riskChol 201-239 mg/dl borderline riskChol 240 mg/dl and greater high risk Result Comment: Chol less than 200 mg/dl low risk Chol 201-239 mg/dl borderline risk Chol 240 mg/dl and greater high risk Performed By: #### C ORT, TSH3, [id number], LIPID, CMP, T4F #### [facility] [address] [place] [id number] [facility] Cholesterol [Mass/Vol] Cholesterol [Mass/volume] in Serum or Plasma 140-200 [facility] Comment on above: Chol less than 200 m g/dl low riskChol 201-239 mg/dl borderline riskChol 240 mg/dl and greater high risk Cholesterol in HDL [Mass/vol ume] in Serum or PlasmaOrdered By: Shaun Aviles on 08-05-2024 Cholesterol in HDL [Mass/Vol] Serum or plasma high density lipoprotein (HDL) cholesterol measurement [facility] Comment on above: HDL CHOL ATP-III CLA SSIFICATION Cardiovascular RiskHDL > or equal to 60 mg/dL LOWHDL < 40 mg/dL HIGH Cholesterol in LDL Calc [Mas s/Vol]Ordered By: Shaun Aviles on 08-05-2024 Cholesterol in LDL [Mass/Vol] 92 mg/dL 0 [facility] Comment on above: LDL ATP III CLASSIFI CATIONLDL less than 100 mg/dL OptimalLDL 100-129 mg/dL Near or above optimalLDL 130-159 mg/dL Borderline highLDL 160-189 mg/dL HighLDL greater than 189 mg/dL Very high Cholesterol in LDL [Mass/Vol] Cholesterol in LDL [Mass/volume] in Serum or Plasma by calculation [facility] Comment on above: LDL ATP III CLASSIFI CATIONLDL less than 100 mg/dL OptimalLDL 100-129 mg/dL Near or above optimalLDL 130-159 mg/dL Borderline highLDL 160-189 mg/dL HighLDL greater than 189 mg/dL Very high Cholesterol in VLDL Calc [Ma ss/Vol]Ordered By: Shaun Aviles on 08-05-2024 Cholesterol in VLDL [Mass/Vol] 15 mg/dL [facility] Cholesterol in VLDL [Mass/Vol] Cholesterol in VLDL [Mass/volume] in Serum or Plasma by calculation [facility] Complete Blood Count Auto Di ffon 08-05-2024 Mean Corpuscular HGB Conc 34.1 g/dL Normal 32.0-35.0 [facility] Comment on above: Performed By: #### C BC #### [facility] [address] NRBC% 0.1 /100{WBC} Normal 0-0.5 [facility] Comment on above: Performed By: #### C BC #### [facility] [address] [place] [id number] [facility] Comprehensive Metabolic Pane harshal 08-05-2024 Albumin [Mass/Vol] 4.3 g/dL Normal 3.5-5.7 [facility] Comment on above: Performed By: #### C ORT, TSH3, [id number], LIPID, CMP, T4F #### [facility] [address] GFR/1.73 sq M.predicted MDRD (S/P/Bld) [Vol rate/Area] mL/min/{1.73_m2} Normal [facility] Comment on above: Performed By: #### C ORT, TSH3, [id number], LIPID, CMP, T4F #### [facility] [address] Cortisolon 08-05-2024 Cortisol 6.9 ug/dL Normal [facility] Comment on above: Result Comment: Refe rence range: AM 6 - 24 ug/dl PM <10 ug/dl [facility] Laboratory prep room supervisor and method: [employer] UNICEL DXI, POLYCLONAL ANTIBODY CORTISOL ASSAY. Performed By: #### C ORT, TSH3, [id number], LIPID, CMP, T4F ####[facility] [place] [address] Cortisol [Mass/volume] in Se rum or PlasmaOrdered By: Shaun Aviles on 08-05-2024 Cortisol [Mass/Vol] Random cortisol measurement [facility] Comment on above: [facility] prep room supervisor and method:[employer] UNICEL DXI, POLYCLONAL ANTIBODY CORTISOL ASSAY.Reference range: AM 6 - 24 ug/dl PM <10 ug/dl Creatinine [Mass/volume] in Serum or PlasmaOrdered By: Shaun Aviles on 08-05-2024 Creatinine [Mass/Vol] 0.69 mg/dL Normal 0.60-1.20 [facility] Comment on above: Performed By: #### C ORT, TSH3, [id number], LIPID, CMP, T4F #### [place] [id number] [place] Creatinine [Mass/Vol] Creatinine [Mass/volume] in Serum or Plasma 0.60-1.20 [facility] Eosinophils Auto (Bld) [#/Vo l]Ordered By: Shuan Aviles on 08-05-2024 Eosinophils (Bld) [#/Vol] Automated eosinophil count 0.0-0.45 [facility] Eosinophils/100 WBC Auto (Bl d)Ordered By: Shaun Aviles on 08-05-2024 Eosinophils/100 WBC (Bld) Automated eosinophil % . [facility] Erythrocyte distribution wid th Auto (RBC) [Ratio]Ordered By: Shaun Aviles on 08-05-2024 Erythrocyte distribution width (RBC) [Ratio] Erythrocyte distribution width [Ratio] by Automated count 11.9-15.3 [facility] Erythrocyte distribution wid th [Ratio] by Automated countOrdered By: Shaun Aviles on 08-05-2024 Erythrocyte distribution width (RBC) [Ratio] 13.8 % Normal 11.9-15.3 [facility] Comment on above: Performed By: #### C BC #### [facility] [address] Erythrocytes [#/volume] in B lood by Automated countOrdered By: Shaun Aviles on 08-05-2024 RBC (Bld) [#/Vol] 4.76 10*6/uL Normal 3.60-5.00 [facility] Comment on above: Performed By: #### C BC #### [facility] [address] [place] [address] Globulin Calc (S) [Mass/Vol] Ordered By: Shaun Aviles on 08-05-2024 Globulin (S) [Mass/Vol] Serum globulin measurement by calculation (mass/volume) [facility] Glucose [Mass/volume] in Ser um or PlasmaOrdered By: Shaun Aviles on 08-05-2024 Glucose [Mass/Vol] 90 mg/dL Normal 70-100 [facility] Comment on above: ADA recommended refe rence rangeRandom Glucose Reference Range is dependent on time and content of last meal. Glucose of more than 200 mg/dL in a nonstressed, ambulatory subject supports the diagnosis of Diabetes Mellitus. Result Comment: [place] om Glucose Reference Range is dependent on time and content of last meal. Glucose of more than 200 mg/dL in a nonstressed, ambulatory subject supports the diagnosis of Diabetes Mellitus. ADA recommended reference range Performed By: #### C ORT, TSH3, [id number], LIPID, CMP, T4F #### [facility] [address] Glucose [Mass/Vol] Glucose [Mass/volume ] in Serum or Plasma 70-100 [facility] Comment on above: ADA recommended refe rence rangeRandom Glucose Reference Range is dependent on time and content of last meal. Glucose of more than 200 mg/dL in a nonstressed, ambulatory subject supports the diagnosis of Diabetes Mellitus. Hematocrit Auto (Bld) [Volum e fraction]Ordered By: Shaun Aviles on 08-05-2024 Hematocrit (Bld) [Volume fraction] Hematocrit [Volume Fraction] of Blood by Automated count 34.0-46.4 [facility] Hematocrit [Volume Fraction] of Blood by Automated countOrdered By: Shaun Aviles on 08-05-2024 Hematocrit (Bld) [Volume fraction] 39.2 % Normal 34.0-46.4 [facility] Comment on above: Performed By: #### C BC #### [facility] [address] [place] [address] Hemoglobin [Mass/volume] in BloodOrdered By: Shaun Aviles on 08-05-2024 Hemoglobin (Bld) [Mass/Vol] 13.4 g/dL Normal 11.8-15.4 [facility] Comment on above: Performed By: #### C BC #### [address] Hemoglobin (Bld) [Mass/Vol] Hemoglobin [Mass/volume] in Blood 11.8-15.4 [facility] Leukocytes [#/volume] correc frieda for nucleated erythrocytes in Blood by Automated counOrdered By: Shaun Aviles on 08-05-2024 WBC corrected for nucl RBC Auto (Bld) [#/Vol] 7.5 10*3/uL 3.8-11.6 [facility] WBC corrected for nucl RBC Auto (Bld) [#/Vol] Leukocytes [#/volume] corrected for nucleated erythrocytes in Blood by Automated coun 3.8-11.6 [facility] Leukocytes [#/volume] in Blo od by Automated countOrdered By: Shaun Aviles on 08-05-2024 WBC (Bld) [#/Vol] 7.5 10*3/uL Normal 3.8-11.6 [facility] Comment on above: Performed By: #### C BC #### [address] Lipid Panelon 08-05-2024 LDL Cholesterol,Calculated 92 mg/dL Normal 0-100 [facility] Comment on above: Result Comment: LDL ATP III CLASSIFICATION LDL less than 100 mg/dL Optimal LDL 100-129 mg/dL Near or above optimal LDL 130-159 mg/dL Borderline high LDL 160-189 mg/dL High LDL greater than 189 mg/dL Very high Performed By: #### C ORT, TSH3, [id number], LIPID, CMP, T4F #### [address] Triglyceride w/Reflex 76 mg/dL Normal 0-149 [facility] Comment on above: Result Comment: TRIG ATP III CLASSIFICATION TRIG less than 150 mg/dL Normal TRIG 150-199 mg/dL Borderline high TRIG 200-500 mg/dL High TRIG greater than 500 mg/dL Very high Standard traceable to the Center for Disease Conrtrol and Prevention (CDC) test method. Performed By: #### C ORT, TSH3, [id number], LIPID, CMP, T4F #### [address] VLDL CHOLESTEROL 15 mg/dL Normal [facility] Comment on above: Performed By: #### C ORT, TSH3, [id number], LIPID, CMP, T4F #### [address] Lymphocytes Auto (Bld) [#/Vo l]Ordered By: Shaun Aviles on 08-05-2024 Lymphocytes (Bld) [#/Vol] Lymphocytes [#/volume] in Blood by Automated count 1.00-4.8 [facility] Lymphocytes [#/volume] in Bl ood by Automated countOrdered By: Shaun Aviles on 08-05-2024 Lymphocytes (Bld) [#/Vol] 1.8 10*3/uL Normal 1.00-4.8 [facility] Comment on above: Performed By: #### C BC #### [facility] [address] Lymphocytes/100 WBC Auto (Bl d)Ordered By: Shaun Aviles on 08-05-2024 Lymphocytes/100 WBC (Bld) Lymphocytes/100 leukocytes in Blood by Automated count . [facility] Lymphocytes/100 leukocytes i n Blood by Automated countOrdered By: Shaun Aviles on 08-05-2024 Lymphocytes/100 WBC (Bld) 24.1 % Normal . [facility] Comment on above: Performed By: #### C BC #### [facility] [address] MCH Auto (RBC) [Entitic mass ]Ordered By: Shaun Aviles on 08-05-2024 MCH (RBC) [Entitic mass] MCH [Entitic mass] by Automated count 24.7-34.3 [facility] MCH [Entitic mass] by Automa frieda countOrdered By: Shaun Aviles on 08-05-2024 MCH (RBC) [Entitic mass] 28.1 pg Normal 24.7-34.3 [facility] Comment on above: Performed By: #### C BC #### [facility] [address] MCHC Auto (RBC) [Mass/Vol]Or dered By: Shaun Aviles on 08-05-2024 MCHC (RBC) [Mass/Vol] 34.1 g/dL 32.0-35.0 [facility] MCHC (RBC) [Mass/Vol] MCHC [Mass/volume] by Automated count 32.0-35.0 [facility] MCV Auto (RBC) [Entitic vol] Ordered By: Shaun Aviles on 08-05-2024 MCV (RBC) [Entitic vol] MCV [Entitic vol ume] by Automated count 80-100 [facility] MCV [Entitic volume] by Auto mated countOrdered By: Shaun Aviles on 08-05-2024 MCV (RBC) [Entitic vol] 82.3 fL Normal 80-100 [facility] Comment on above: Performed By: #### C BC #### [facility] [address] [place] [id number] [place] Monocytes Auto (Bld) [#/Vol] Ordered By: Shaun Aviles on 08-05-2024 Monocytes (Bld) [#/Vol] Automated blood monocyte count 0.0-0.8 [facility] Monocytes/100 WBC Auto (Bld) Ordered By: Shaun Aviles on 08-05-2024 Monocytes/100 WBC (Bld) Automated monocyte % . [facility] Neutrophils Auto (Bld) [#/Vo l]Ordered By: Shaun Aviles on 08-05-2024 Neutrophils (Bld) [#/Vol] Neutrophils [#/volume] in Blood by Automated count 1.8-7.7 [facility] Neutrophils [#/volume] in Bl ood by Automated countOrdered By: Shaun Aviles on 08-05-2024 Neutrophils (Bld) [#/Vol] 5.2 10*3/uL Normal 1.8-7.7 [facility] Comment on above: Performed By: #### C BC #### [facility] [address] [place] [id number] [facility] Neutrophils/100 WBC Auto (Bl d)Ordered By: Shaun Aviles on 08-05-2024 Neutrophils/100 WBC (Bld) Automated neutrophil % . [facility] No Panel InformationOrdered By: Shaun Aviles on 08-05-2024 Estimated GFR (CKD-EPI) > 60.0 mL/Min [facility] Creatinine Clearance (Chem N/A [facility] Nucleated erythrocytes [Pres ence] in Blood by Automated countOrdered By: Shaun Aviles on 08-05-2024 Nucleated RBC Auto Ql (Bld) 0.1 /100{WBC} 0-0.5 [facility] Nucleated RBC Auto Ql (Bld) Nucleated erythrocytes [Presence] in Blood by Automated count 0-0.5 [facility] Platelet mean volume Auto (B ld) [Entitic vol]Ordered By: Shaun Aviles on 08-05-2024 Platelet mean volume (Bld) [Entitic vol] Platelet mean volume [Entitic volume] in Blood by Automated count 6.3-10.7 [facility] Platelet mean volume [Entiti c volume] in Blood by Automated countOrdered By: Shaun Aviles on 08-05-2024 Platelet mean volume (Bld) [Entitic vol] 7.4 fL Normal 6.3-10.7 [facility] Comment on above: Performed By: #### C BC #### [facility] [address] Platelets Auto (Bld) [#/Vol] Ordered By: hSaun Aviles on 08-05-2024 Platelets (Bld) [#/Vol] Platelets [#/vol ume] in Blood by Automated count 150-450 [facility] Platelets [#/volume] in Bloo d by Automated countOrdered By: Shaun Aviles on 08-05-2024 Platelets (Bld) [#/Vol] 253 10*3/uL Normal 150-450 [facility] Comment on above: Performed By: #### C BC #### [place] [address] [place] Potassium [Moles/volume] in Serum or PlasmaOrdered By: Shaun Aviles on 08-05-2024 Potassium [Moles/Vol] 4.8 mmol/L Normal 3.5-5.1 [facility] Comment on above: Performed By: #### C ORT, TSH3, [id number], LIPID, CMP, T4F #### [address] Potassium [Moles/Vol] Potassium [Moles/volume] in Serum or Plasma 3.5-5.1 [facility] Protein [Mass/volume] in Ser um or PlasmaOrdered By: Shaun Aviles on 08-05-2024 Protein [Mass/Vol] 7.1 g/dL Normal 6.4-8.9 [facility] Comment on above: Performed By: #### C ORT, TSH3, [id number], LIPID, CMP, T4F #### [place] [address] [place] Protein [Mass/Vol] Protein [Mass/volume ] in Serum or Plasma 6.4-8.9 [facility] RBC Auto (Bld) [#/Vol]Ordere d By: Shaun Aviles on 08-05-2024 RBC (Bld) [#/Vol] Erythrocytes [#/volume] in Blood by Automated count 3.60-5.00 [facility] Random cortisol measurementO rdered By: Shaun Aviles on 08-05-2024 Cortisol [Mass/Vol] 6.9 ug/dL [facility] Comment on above: [facility] prep room supervisor and method:LIYA UNICEL DXI, POLYCLONAL ANTIBODY CORTISOL ASSAY.Reference range: AM 6 - 24 ug/dl PM <10 ug/dl Serum globulin measurement b y calculation (mass/volume)Ordered By: Shaun Aviles on 08-05-2024 Globulin (S) [Mass/Vol] 2.8 g/dL Normal [facility] Comment on above: Performed By: #### C ORT, TSH3, [id number], LIPID, CMP, T4F #### [facility] [address] [place] [address] Serum or plasma albumin/glob ulin mass ratioOrdered By: Shaun Aviles on 08-05-2024 Albumin/Globulin [Mass ratio] 1.5 {ratio} Normal [facility] Comment on above: Performed By: #### C ORT, TSH3, [id number], LIPID, CMP, T4F #### [facility] [address] [place] [address] Albumin/Globulin [Mass ratio] Serum or plasma albumin/globulin mass ratio [facility] Serum or plasma anion gap de terminationOrdered By: Shaun Aviles on 08-05-2024 Anion gap [Moles/Vol] 10.5 mmol/L Normal 6.0-15.0 [facility] Comment on above: Performed By: #### C ORT, TSH3, [id number], LIPID, CMP, T4F #### [facility] [address] [place] [address] Anion gap [Moles/Vol] Serum or plasma an ion gap determination 6.0-15.0 [facility] Serum or plasma high density lipoprotein (HDL) cholesterol measurementOrdered By: Shaun Aviles on 08-05-2024 Cholesterol in HDL [Mass/Vol] 46 mg/dL Normal 23-92 [facility] Comment on above: HDL CHOL ATP-III CLA SSIFICATION Cardiovascular RiskHDL > or equal to 60 mg/dL LOWHDL < 40 mg/dL HIGH Result Comment: HDL CHOL ATP-III CLASSIFICATION Cardiovascular Risk HDL > or equal to 60 mg/dL LOW HDL < 40 mg/dL HIGH Performed By: #### C ORT, TSH3, [id number], LIPID, CMP, T4F #### [facility] [address] Serum or plasma total choles terol/high density lipoprotein (HDL) cholesterol mass ratOrdered By: Shaun Aviles on 08-05-2024 Cholesterol.total/Corina sterol in HDL [Mass ratio] 3.3 {ratio} Normal <5.0 [facility] Comment on above: Performed By: #### C ORT, TSH3, [id number], LIPID, CMP, T4F #### [facility] [address] Cholesterol.total/Corina sterol in HDL [Mass ratio] Serum or plasma total cholesterol/high density lipoprotein (HDL) cholesterol mass rat <5.0 [facility] Sodium [Moles/volume] in Ser um or PlasmaOrdered By: Shaun Aviles on 08-05-2024 Sodium [Moles/Vol] 139 mmol/L Normal 136-145 [facility] Comment on above: Performed By: #### C ORT, TSH3, [id number], LIPID, CMP, T4F #### [facility] [address] Sodium [Moles/Vol] Sodium [Moles/volume ] in Serum or Plasma 136-145 [facility] Thyrotropin [Units/volume] i n Serum or PlasmaOrdered By: Shaun Aviles on 08-05-2024 TSH Qn 1.32 m[IU]/L Normal 0.45-5.33 [facility] Comment on above: Performed By: #### C ORT, TSH3, [id number], LIPID, CMP, T4F ####[facility] [id number] TSH Qn Thyrotropin [Units/volume] in Serum or Plasma 0.45-5.33 [facility] Thyroxine (T4) free [Mass/vo lume] in Serum or PlasmaOrdered By: Shaun Aviles on 08-05-2024 Free T4 [Mass/Vol] 0.90 ng/dL Normal 0.61-1.12 [facility] Comment on above: Performed By: #### C ORT, TSH3, [id number], LIPID, CMP, T4F ####[facility] [id number] [place] [id number] [facility] Free T4 [Mass/Vol] Thyroxine (T4) free [Mass/volume] in Serum or Plasma 0.61-1.12 [facility] Triglyceride [Mass/volume] i n Serum or PlasmaOrdered By: Shaun Aviles on 08-05-2024 Triglyceride [Mass/Vol] 76 mg/dL 0-149 [facility] Comment on above: TRIG ATP III CLASSIF ICATIONTRIG less than 150 mg/dL NormalTRIG 150-199 mg/dL Borderline highTRIG 200-500 mg/dL High TRIG greater than 500 mg/dL Very highStandard traceable to the Center for Disease Conrtrol and Prevention (CDC) test method. Triglyceride [Mass/Vol] Triglyceride [Mass/volume] in Serum or Plasma 0-149 [facility] Comment on above: TRIG ATP III CLASSIF ICATIONTRIG less than 150 mg/dL NormalTRIG 150-199 mg/dL Borderline highTRIG 200-500 mg/dL High TRIG greater than 500 mg/dL Very highStandard traceable to the Center for Disease Conrtrol and Prevention (CDC) test method. Urea nitrogen [Mass/volume] in Serum or PlasmaOrdered By: Shaun Aviles on 08-05-2024 Urea nitrogen [Mass/Vol] 13 mg/dL Normal 05-01 [facility] Comment on above: Performed By: #### C ORT, TSH3, [id number], LIPID, CMP, T4F #### [facility] [address] [place] [id number] [facility] Urea nitrogen [Mass/Vol] Urea nitrogen [Mass/volume] in Serum or Plasma 05-01 [facility] Vitamin D 25 Hydroxy Totalon 08-05-2024 Vitamin D 25 Hydroxy Total 33.6 ng/mL Normal 30-100 [facility] Comment on above: Result Comment: ADEEL MIN D STATUS 25(OH)VITAMIN D RANGE (ng/mL) Deficient <20 Insufficient 20 to <30 Sufficient 30 to 100 Reference: Tatum Bernard Bischoff-Ferrari HA et al. Evaluation,treatment, and prevention of vitamin D deficiency; an Endocrine Society clinical practice guideline. JCEM. 2010; 96(7):191-. PERFORMED BY: [facility] [address] [place] [address] PATHOLOGIST FIELD OPERATIONS COORDINATOR ALBA SCHULTE M.D. Performed By: #### C ORT, TSH3, [id number], LIPID, CMP, T4F ####[facility] [id number] [place] [address] [facility] Vitamin D+Metabolites [Mass/ volume] in Serum or PlasmaOrdered By: Shaun Aviles on 08-05-2024 Vitamin D+Metabolites [Mass/Vol] 33.6 ng/mL 30-100 [facility] Comment on above: VITAMIN D STATUS 25( [place])VITAMIN D RANGE (ng/mL) Deficient <20 Insufficient 20 to <30Sufficient 30 to 100Reference: Tatum Bernard, Matt TAYLOR, et al. Evaluation,treatment, and prevention of vitamin D deficiency; an Endocrine Society clinical practice guideline. JCEM. 2010; 96(7):191-. Vitamin D+Metabolites [Mass/Vol] Vitamin D+Metabolites [Mass/volume] in Serum or Plasma 30-100 [facility] Comment on above: VITAMIN D STATUS 25( [place])VITAMIN D RANGE (ng/mL) Deficient <20 Insufficient 20 to <30Sufficient 30 to 100Reference: Tatum Bernard, Matt TAYLOR, et al. Evaluation,treatment, and prevention of vitamin D deficiency; an Endocrine Society clinical practice guideline. JCEM. 2010; 96(7):1911-30. WBC Auto (Bld) [#/Vol]Ordere d By: Shaun Aviles on 08-05-2024 WBC (Bld) [#/Vol] Leukocytes [#/volume ] in Blood by Automated count 3.8-11.6 [facility] Amphetamine Screen Ql (U)Ord ered By: Willie Lambert on 07-01-2024 Amphetamines Ql (U) Amphetamines screen Negativ e [facility] Amphetamines Ql (U) Negative Negative [facility] Barbiturates [Presence] in U rine by Screen methodOrdered By: Willie Lambert on 07-01-2024 Barbiturates Screen Ql (U) Negative Negative [facility] Barbiturates Screen Ql (U) Barbiturates [Presence] in Urine by Screen method Negative [facility] Benzodiazepines Screen Ql (U )Ordered By: Willie Lambert on 07-01-2024 Benzodiazepines Ql (U) Negative Negative Fi [facility] Benzodiazepines Ql (U) Benzodiazepines [Presence] in Urine by Screen method Negative [facility] Benzoylecgonine [Presence] i n Urine by Screen methodOrdered By: Willie Lambert on 07-01-2024 Benzoylecgonine Screen Ql (U) Negative Negative [facility] Benzoylecgonine Screen Ql (U) Benzoylecgonine [Presence] in Urine by Screen method Negative [facility] Cannabinoids [Presence] in U rine by Screen methodOrdered By: Willie Lambert on 07-01-2024 Cannabinoids Screen Ql (U) Positive High Negative [facility] Comment on above: These are unconfirme d results and should not be used for legal purposes. Drug Cut-Off Concentration: AMPH 1000 ng/mL SENG 200 ng/mL DAVIDA 200 ng/mL COCM 300 ng/mL OP 300 ng/mL PCP 25 ng/mL THC 20 ng/mL Cannabinoids Screen Ql (U) Cannabinoids [Presence] in Urine by Screen method High Negative [facility] Comment on above: These are unconfirme d results and should not be used for legal purposes. Drug Cut-Off Concentration: AMPH 1000 ng/mL SENG 200 ng/mL DAVIDA 200 ng/mL COCM 300 ng/mL OP 300 ng/mL PCP 25 ng/mL THC 20 ng/mL Drug Screen,Urineon 07-01-20 Amphetamine Screen,Urine Negative Normal Negative [facility] Comment on above: Performed By: #### U HCG, URDS #### [address] Barbiturate Screen,Urine Negative Normal Negative [facility] Comment on above: Performed By: #### U HCG, URDS #### [address] Benzodiazepines Screen,Urine Negative Normal Negative [facility] Comment on above: Performed By: #### U HCG, URDS #### [address] Cannabinoid Screen,Urine Positive High Negative [facility] Comment on above: Result Comment: Thes e are unconfirmed results and should not be used for legal purposes. Drug Cut-Off Concentration: AMPH 1000 ng/mL SENG 200 ng/mL DAVIDA 200 ng/mL COCM 300 ng/mL OP 300 ng/mL PCP 25 ng/mL THC 20 ng/mL PERFORMED BY: [place] [address] PATHOLOGIST FIELD OPERATIONS COORDINATOR ALBA SCHULTE M.D. Performed By: #### U HCG, URDS #### [address] Cocaine Screen,Urine Negative Normal Negative [facility] Comment on above: Performed By: #### U HCG, URDS #### [address] Opiate Screen,Urine Negative Normal Negative [facility] Comment on above: Performed By: #### U HCG, URDS #### [address] Phencyclidine Screen,Urine Negative Normal Negative [facility] Comment on above: Performed By: #### U HCG, URDS #### [address] HCG ( test) IAwilli d Ql (U)Ordered By: Willie Lambert on 07-01-2024 HCG ( test) Ql (U) Negative [facility] HCG ( test) Ql (U) Urine human chorionic gonadotropin (hCG) detection by immunoassay [facility] HCG,Urineon 07-01-2024 Beta HCG ( test) Ql (U) Negative Normal [facility] Comment on above: Result Comment: PERF ORMED BY: [place] [address] PATHOLOGIST FIELD OPERATIONS COORDINATOR ALBA SCHULTE M.D. Performed By: #### U HCG, URDS #### [place] [address] [place] H[place] 07-01-2024 L Specimen: [id number] Received: 07/02/24 Status: SOUT Req Num: [id number] Spec Type: Surgical Subm Dr: Willie Lambert MD Tissues: A Small Intestine - Biopsy/Polyp (SM BOWEL BX R/O CELIAC) B Esophagus Biopsy (ESOPHAGEAL BX R/O EOE) Procedures: HE/4, Gross/Micro L4/2 Age/ Patient Sex Location Account Attending Physician Brian Sullivan / [id number] Willie Lambert MD SPEC NUM: [id number] RECD: 07/02/24 STATUS: SOUT REQ NUM: [id number] SANTOS: 07/01/[address]: Willie Lambert MD ENTERED: 07/02/[address] [facility] [address]: SPEC TYPE: Surgical DEPT: S ENTERED BY: [id number] RECV BY: [id number] ORDERED: HE/4, Gross/Micro L4/2 ORDERED: HE/4, Gross/Micro L4/2 Pathological Diagnosis A. Small bowel, biopsy: - Small bowel mucosa with no significant histopathology. - No evidence of celiac disease identified. B. Esophagus, biopsy: - Esophageal squamous epithelium with reactive changes. - No eosinophilic infiltrate identified. - No glandular mucosa present. Clinical Information Early satiety, dysphagia Gross Description Part A is received in formalin with the patient's name and small bowel biopsy and consists of two fragments of pantoja tissue measuring 0.2 and 0.3 cm in greatest dimension. The specimen is entirely submitted in cassette A1. Part B is received in formalin with the patient's name and esophageal biopsy and consists of a single fragment pantoja tissue measuring 0.4 cm in greatest dimension. The specimen is entirely submitted in cassette B1. -------- Specimen: [id number] Received: 07/02/24 Status: EDITH Camejo Num: [id number] Spec Type: Surgical Subm Dr: Willie Lambert MD Tissues: A Small Intestine - Biopsy/Polyp (SM BOWEL BX R/O CELIAC) B Esophagus Biopsy (ESOPHAGEAL BX R/O EOE) Procedures: HE/Ryan, Gross/Micro L4/2 -------- Patient: Brian Sullivan [id number] (Continued) -------- Specimen: [id number] Received: 07/02/24 (Continued) Signed (signature on file) Lefty Washington MD 07/07/24 1433 -------- Specimen: [id number] Received: 07/02/24 Status: EDITH Camejo Num: [id number] Spec Type: Surgical Subm Dr: Willie Lambert MD Tissues: A Small Intestine - Biopsy/Polyp (SM BOWEL BX R/O CELIAC) B Esophagus Biopsy (ESOPHAGEAL BX R/O EOE) Procedures: HE/4, Gross/Micro L4/2 -------- Patient: Brian Sullivan [id number] (Continued) -------- Specimen: [id number] Received: 07/02/24 (Continued) Microscopic Description A B: Microscopic examination is performed. CPT Codes 77902 x 2 -------- -------- Specimen: [id number] Received: 07/02/24 Status: EDITH Camejo Num: [id number] Spec Type: Surgical Subm Dr: Willie Lambert MD Tissues: A Small Intestine - Biopsy/Polyp (SM BOWEL BX R/O CELIAC) B Esophagus Biopsy (ESOPHAGEAL BX R/O EOE) Procedures: HE/4, Gross/Micro L4/2 -------- Patient: Brian Sullivan [id number] (Continued) -------- Signed (signature on file) Lefty Washington MD 07/07/24 1433 Normal [facility] Opiates [Presence] in Urine by Screen methodOrdered By: Willie Lambert on 07-01-2024 Opiates Screen Ql (U) Negative Negative [facility] Opiates Screen Ql (U) Opiates [Presence] in Urine by Screen method Negative [facility] Phencyclidine Screen Ql (U)O rdered By: Willie Lambert on 07-01-2024 Phencyclidine Ql (U) Negative Negative [facility] Phencyclidine Ql (U) Phencyclidine [Presence] in Urine by Screen method Negative [facility] Giardia lamblia Ag [Presence ] in Stool by Immunoassayon 05-19-2024 G. lamblia Ag IA Ql (Stl) Negative Negative [facility] Comment on above: Performed at: [address] [id number] Director: Joey Hoyos PhD, Phone: [phone] No Panel Informationon 05-19 Clostridium difficile (PCR)(LAB) Negative NEGATIVE [facility] Miscellaneous Test Comment See comment [facility] Comment on above: Specimen Source: ST - Stool - Stool - 700.100 Stool Campylobacter Culture Res 1 \R\ Campylobacter Culture\R\ No Campylobacter species isolated. [facility] Comment on above: [facility], No Panel InformationOrdered By: Ines Ojeda on 05-19-2024 E coli Shiga Toxin EIA Fi [facility] Salmonella/Shigella Screen [facility] Basophils Auto (Bld) [#/Vol] on 05-18-2024 Basophils (Bld) [#/Vol] 0.0 10 3/uL 0.0-0.1 [facility] Basophils/100 WBC Auto (Bld) on 05-18-2024 Basophils/100 WBC (Bld) 0.1 % Low 0.2-2.0 [facility] Eosinophils/100 WBC Auto (Bl d)on 05-18-2024 Eosinophils/100 WBC (Bld) 0.0 % Low 0.9-7.0 [facility] Erythrocyte distribution wid th Auto (RBC) [Ratio]on 05-18-2024 Erythrocyte distribution width (RBC) [Ratio] 12.9 % 11.0-15.0 [facility] Estimated glomerular filtrat ion rate (GFR) non- Americanon 05-18-2024 GFR/1.73 sq M.predicted among non-blacks MDRD (S/P/Bld) [Vol rate/Area] mL/min/{1.73_m2} >=60 [facility] Globulin Calc (S) [Mass/Vol] on 05-18-2024 Globulin (S) [Mass/Vol] 3.7 g/dL [facility] HCG ( test) IA.rapi d Ql (U)on 05-18-2024 HCG ( test) Ql (U) Negative NEGATIVE [facility] Hematocrit Auto (Bld) [Volum e fraction]on 05-18-2024 Hematocrit (Bld) [Volume fraction] 39.1 % 36.0-48.0 [facility] Hemoglobin [Mass/volume] in Bloodon 05-18-2024 Hemoglobin (Bld) [Mass/Vol] 13.0 g/dL 12.0-16.0 [facility] Laboratory - Chemistry and C hemistry - challengeon 05-18-2024 Albumin [Mass/Vol] 4.3 g/dL 3.4-5.0 [facility] ALP [Catalytic activity/Vol] 126 U/L High 46-116 [facility] ALT [Catalytic activity/Vol] 20 U/L 14-59 [facility] AST [Catalytic activity/Vol] 19 U/L 15-37 [facility] Bilirubin [Mass/Vol] 0.6 mg/dL 0.2-1.0 [facility] Bilirubin Ql (U) SMALL Abnormal NEGATIVE [facility] Calcium [Mass/Vol] 9.5 mg/dL 8.5-10.1 [facility] Chloride [Moles/Vol] 102 mmol/L 98-107 [facility] CO2 [Moles/Vol] 28.3 mmol/L 21.0-32.0 [facility] Creatinine [Mass/Vol] 0.85 mg/dL 0.55-1.02 [facility] GFR/1.73 sq M.predicted MDRD (S/P/Bld) [Vol rate/Area] mL/min/{1.73_m2} >=60 [facility] Glucose (U) [Mass/Vol] Negative NEGATIVE [facility] Glucose [Mass/Vol] 90 mg/dL 74-106 [facility] Ketones Ql (U) Negative NEGATIVE [facility] Lipase [Catalytic activity/Vol] 36.0 U/L 16.0-77.0 [facility] pH (U) 6.0 [pH] 5.0-9.0 [facility] Potassium [Moles/Vol] 3.4 mmol/L Low 3.5-5.1 [facility] Protein [Mass/Vol] 8.0 g/dL 6.4-8.2 [facility] Sodium [Moles/Vol] 141 mmol/L 136-145 [facility] Specific gravity (U) [Rel density] >=1.030 Abnormal 1.005-1.025 [facility] Urea nitrogen [Mass/Vol] 7.0 mg/dL 7.0-18.0 [facility] Urea nitrogen/Creatinine [Mass ratio] 8.2 mg/mg [facility] Urobilinogen Qn (U) 0.2 {Mary Ann'U}/dL 0.2-1.0 [facility] Laboratory - Hematology and Cell countson 05-18-2024 Immature granulocytes/100 WBC (Bld) 0.1 % 0.0-0.5 [facility] - Specimen inform ationon 05-18-2024 Appearance (U) CLEAR CLEAR [facility] Color (U) YELLOW YELLOW [facility] Laboratory - Urinalysison Leukocyte esterase Test strip Ql (U) Negative NEGATIVE [facility] Nitrite Ql (U) Negative NEGATIVE [facility] Protein Ql (U) Negative NEG/TRACE [facility] Leukocytes [#/volume] correc frieda for nucleated erythrocytes in Blood by Automated counon 05-18-2024 WBC corrected for nucl RBC Auto (Bld) [#/Vol] 7.8 10 3/uL 4.0-11.0 [facility] Lymphocytes Auto (Bld) [#/Vo l]on 05-18-2024 Lymphocytes (Bld) [#/Vol] 2.0 10 3/uL 1.2-3.8 [facility] Lymphocytes/100 WBC Auto (Bl d)on 05-18-2024 Lymphocytes/100 WBC (Bld) 25.3 % 20.5-60.0 [facility] MCH Auto (RBC) [Entitic mass ]on 05-18-2024 MCH (RBC) [Entitic mass] 27.8 pg 26.7-34.0 [facility] MCHC Auto (RBC) [Mass/Vol]on 05-18-2024 MCHC (RBC) [Mass/Vol] 33.2 g/dL 29.9-35.2 [facility] MCV Auto (RBC) [Entitic vol] on 05-18-2024 MCV (RBC) [Entitic vol] 83.5 fL 81.0-99.0 [facility] Monocytes Auto (Bld) [#/Vol] on 05-18-2024 Monocytes (Bld) [#/Vol] 0.5 10 3/uL 0.3-0.8 [facility] Monocytes/100 WBC Auto (Bld) on 05-18-2024 Monocytes/100 WBC (Bld) 6.3 % 1.7-12.0 [facility] Neutrophils Auto (Bld) [#/Vo l]on 05-18-2024 Neutrophils (Bld) [#/Vol] 5.3 10 3/uL 1.4-6.5 [facility] Neutrophils/100 WBC Auto (Bl d)on 05-18-2024 Neutrophils/100 WBC (Bld) 68.2 % 43.0-75.0 [facility] No Panel Informationon 05-18 Eosinophils # (Auto) 0.0 10 3/uL 0.0-0.7 [facility] Immature Granulocyte # (Auto) 0.01 10 3/uL 0.00-0.03 [facility] Urine Microscopic Review NO [facility] Urine Occult Blood Negative NEGATIVE [facility] Platelet mean volume Auto (B ld) [Entitic vol]on 05-18-2024 Platelet mean volume (Bld) [Entitic vol] 9.2 fL Low 9.5-13.5 [facility] Platelets Auto (Bld) [#/Vol] on 05-18-2024 Platelets (Bld) [#/Vol] 293 10 3/uL 150-450 [facility] RBC Auto (Bld) [#/Vol]on RBC (Bld) [#/Vol] 4.68 10 6/uL 4.20-5.40 [facility] Serum or plasma albumin/glob ulin mass ratioon 05-18-2024 Albumin/Globulin [Mass ratio] 1.2 {ratio} [facility] Serum or plasma anion gap de terminationon 05-18-2024 Anion gap [Moles/Vol] 14.1 mmol/L [facility] US breast LT limitedon 01-21 US breast LT limited [facility] [address] [place] [id number] Ultrasound Report Signed Patient: Brian Sullivan MR#: [id number] 7 : 1995 Acct:[id number] Age/Sex: 28 / F ADM Date: 01/22/24 Loc: [facility]: Shaun Aviles DO Ordering Provider: [...] Cassandra Rubio M.D.01/22/2024 11:12 AM Dictation Location: [facility] Tech: Jennifer Baird Transcribed By: SABA 01/22/24 1112 Dictated By: Cassandra Rubio MD 01/22/24 1044 Signed By: 01/22/24 1112 Normal [facility] Alanine aminotransferase [En zymatic activity/volume] in Serum or PlasmaOrdered By: Gail Lawrence on 12-27-2023 ALT [Catalytic activity/Vol] 9 U/L Normal 7-52 [facility] Comment on above: Performed By: #### A ST, ALT, TRIG, CBC ####[place] [id number] [address] Aspartate aminotransferase [ Enzymatic activity/volume] in Serum or PlasmaOrdered By: Gail Lawrence on 12-27-2023 AST [Catalytic activity/Vol] 18 U/L Normal 13-39 [facility] Comment on above: Performed By: #### A ST, ALT, TRIG, CBC ####[place] [id number] [address] Automated basophil %Ordered By: Gail Lawrence on 12-27-2023 Basophils/100 WBC (Bld) 0.1 % Normal . [facility] Comment on above: Performed By: #### A ST, ALT, TRIG, CBC ####[place] [id number] [address] Automated basophil countOrde red By: Gail Lawrence on 12-27-2023 Basophils (Bld) [#/Vol] 0.0 10*3/uL Normal 0.0-0.2 [facility] Comment on above: Result Comment: PERF ORMED BY: [facility] [address] [place] [address] PATHOLOGIST FIELD OPERATIONS COORDINATOR ALBA SCHULTE M.D. Performed By: #### A ST, ALT, TRIG, CBC ####[address] Automated blood monocyte cou ntOrdered By: Gail Lawrence on 12-27-2023 Monocytes (Bld) [#/Vol] 0.4 10*3/uL Normal 0.0-0.8 [facility] Comment on above: Performed By: #### A ST, ALT, TRIG, CBC ####[address] Automated eosinophil %Ordere d By: Gail Lawrence on 12-27-2023 Eosinophils/100 WBC (Bld) 0.0 % Normal . [facility] Comment on above: Performed By: #### A ST, ALT, TRIG, CBC ####[address] Automated eosinophil countOr dered By: Gail Lawrence on 12-27-2023 Eosinophils (Bld) [#/Vol] 0.0 10*3/uL Normal 0.0-0.45 [facility] Comment on above: Performed By: #### A ST, ALT, TRIG, CBC ####[address] Automated monocyte %Ordered By: Gail Lawrence on 12-27-2023 Monocytes/100 WBC (Bld) 5.7 % Normal . [facility] Comment on above: Performed By: #### A ST, ALT, TRIG, CBC ####[address] Automated neutrophil %Ordere d By: Gail Lawrence on 12-27-2023 Neutrophils/100 WBC (Bld) 65.0 % Normal . [facility] Comment on above: Performed By: #### A ST, ALT, TRIG, CBC ####[address] Complete Blood Count Auto Di ffon 12-27-2023 Mean Corpuscular HGB Conc 33.3 g/dL Normal 32.0-35.0 [facility] Comment on above: Performed By: #### A ST, ALT, TRIG, CBC ####[address] NRBC% 0.0 /100{WBC} Normal 0-0.5 [facility] Comment on above: Performed By: #### A ST, ALT, TRIG, CBC ####[address] Erythrocyte distribution wid th [Ratio] by Automated countOrdered By: Gail Lawrence on 12-27-2023 Erythrocyte distribution width (RBC) [Ratio] 14.1 % Normal 11.9-15.3 [facility] Comment on above: Performed By: #### A ST, ALT, TRIG, CBC ####[address] Erythrocytes [#/volume] in B lood by Automated countOrdered By: Gail Lawrence on 12-27-2023 RBC (Bld) [#/Vol] 4.71 10*6/uL Normal 3.60-5.00 [facility] Comment on above: Performed By: #### A ST, ALT, TRIG, CBC ####[place] [id number] [address] Hematocrit [Volume Fraction] of Blood by Automated countOrdered By: Gail Lawrence on 12-27-2023 Hematocrit (Bld) [Volume fraction] 37.9 % Normal 34.0-46.4 [facility] Comment on above: Performed By: #### A ST, ALT, TRIG, CBC ####[address] Hemoglobin [Mass/volume] in BloodOrdered By: Gail Lawrence on 12-27-2023 Hemoglobin (Bld) [Mass/Vol] 12.6 g/dL Normal 11.8-15.4 [facility] Comment on above: Performed By: #### A ST, ALT, TRIG, CBC ####[address] Leukocytes [#/volume] correc frieda for nucleated erythrocytes in Blood by Automated counOrdered By: Gail Lawrence on 12-27-2023 WBC corrected for nucl RBC Auto (Bld) [#/Vol] 6.5 10*3/uL 3.8-11.6 [facility] Leukocytes [#/volume] in Blo od by Automated countOrdered By: Gail Lawrence on 12-27-2023 WBC (Bld) [#/Vol] 6.5 10*3/uL Normal 3.8-11.6 [facility] Comment on above: Performed By: #### A ST, ALT, TRIG, CBC ####[address] Lymphocytes [#/volume] in Bl ood by Automated countOrdered By: Gail Lawrence on 12-27-2023 Lymphocytes (Bld) [#/Vol] 1.9 10*3/uL Normal 1.00-4.8 [facility] Comment on above: Performed By: #### A ST, ALT, TRIG, CBC ####[address] Lymphocytes/100 leukocytes i n Blood by Automated countOrdered By: Gail Lawrence on 12-27-2023 Lymphocytes/100 WBC (Bld) 29.2 % Normal . [facility] Comment on above: Performed By: #### A ST, ALT, TRIG, CBC ####[address] MCH [Entitic mass] by Automa frieda countOrdered By: Gail Lawrence on 12-27-2023 MCH (RBC) [Entitic mass] 26.8 pg Normal 24.7-34.3 [facility] Comment on above: Performed By: #### A ST, ALT, TRIG, CBC ####[address] MCHC Auto (RBC) [Mass/Vol]Or dered By: Gail Lawrence on 12-27-2023 MCHC (RBC) [Mass/Vol] 33.3 g/dL 32.0-35.0 [facility] MCV [Entitic volume] by Auto mated countOrdered By: Gail Lawrence on 12-27-2023 MCV (RBC) [Entitic vol] 80.5 fL Normal 80-100 [facility] Comment on above: Performed By: #### A ST, ALT, TRIG, CBC ####[address] Neutrophils [#/volume] in Bl ood by Automated countOrdered By: Gail Lawrence on 12-27-2023 Neutrophils (Bld) [#/Vol] 4.2 10*3/uL Normal 1.8-7.7 [facility] Comment on above: Performed By: #### A ST, ALT, TRIG, CBC ####[address] Nucleated erythrocytes [Pres ence] in Blood by Automated countOrdered By: Gail Lawrence on 12-27-2023 Nucleated RBC Auto Ql (Bld) 0.0 /100{WBC} 0-0.5 [facility] Platelet mean volume [Entiti c volume] in Blood by Automated countOrdered By: Gail Lawrence on 12-27-2023 Platelet mean volume (Bld) [Entitic vol] 6.7 fL Normal 6.3-10.7 [facility] Comment on above: Performed By: #### A ST, ALT, TRIG, CBC ####[place] [id number] [place] [id number] [facility] Platelets [#/volume] in Bloo d by Automated countOrdered By: Gail Lawrence on 12-27-2023 Platelets (Bld) [#/Vol] 284 10*3/uL Normal 150-450 [facility] Comment on above: Performed By: #### A ST, ALT, TRIG, CBC ####[place] [id number] [address] Triglyceride [Mass/volume] i n Serum or PlasmaOrdered By: Gail Lawrence on 12-27-2023 Triglyceride [Mass/Vol] 78 mg/dL Normal 35-149 [facility] Comment on above: TRIG ATP III CLASSIF ICATIONTRIG less than 150 mg/dL NormalTRIG 150-199 mg/dL Borderline highTRIG 200-500 mg/dL High TRIG greater than 500 mg/dL Very highStandard traceable to the Center for Disease Conrtrol and Prevention (CDC) test method. Result Comment: TRIG ATP III CLASSIFICATION TRIG less than 150 mg/dL Normal TRIG 150-199 mg/dL Borderline high TRIG 200-500 mg/dL High TRIG greater than 500 mg/dL Very high Standard traceable to the Center for Disease Conrtrol and Prevention (CDC) test method. PERFORMED BY: [facility] [address] [place] [id number] PATHOLOGIST FIELD OPERATIONS COORDINATOR ALBA SCHULTE M.D. Performed By: #### A ST, ALT, TRIG, CBC ####[place] [address] [place] [id number] [facility] Amphetamine Screen Ql (U)Ord ered By: Willie Lambert on 08-22-2023 Amphetamines Ql (U) Negative Negative [facility] Barbiturates [Presence] in U rine by Screen methodOrdered By: Willie Lambert on 08-22-2023 Barbiturates Screen Ql (U) Negative Negative [facility] Benzodiazepines Screen Ql (U )Ordered By: Willie Lambert on 08-22-2023 Benzodiazepines Ql (U) Negative Negative Fi [facility] Benzoylecgonine [Presence] i n Urine by Screen methodOrdered By: Willie Lambert on 08-22-2023 Benzoylecgonine Screen Ql (U) Negative Negative [facility] Cannabinoids [Presence] in U rine by Screen methodOrdered By: Willie Lambert on 08-22-2023 Cannabinoids Screen Ql (U) Positive Negative [facility] Comment on above: These are unconfirme d results and should not be used for legal purposes. Drug Cut-Off Concentration: AMPH 1000 ng/mL SENG 200 ng/mL DAVIDA 200 ng/mL COCM 300 ng/mL OP 300 ng/mL PCP 25 ng/mL THC 20 ng/mL Drug Screen,Urineon 08-22-20 Amphetamine Screen,Urine Negative Normal Negative [facility] Comment on above: Performed By: #### U RDS #### [address] Barbiturate Screen,Urine Negative Normal Negative [facility] Comment on above: Performed By: #### U RDS #### [place] [address] [place] Benzodiazepines Screen,Urine Negative Normal Negative [facility] Comment on above: Performed By: #### U RDS #### [place] [address] [place] Cannabinoid Screen,Urine Positive High Negative [facility] Comment on above: Result Comment: Thes e are unconfirmed results and should not be used for legal purposes. Drug Cut-Off Concentration: AMPH 1000 ng/mL SENG 200 ng/mL DAVIDA 200 ng/mL COCM 300 ng/mL OP 300 ng/mL PCP 25 ng/mL THC 20 ng/mL PERFORMED BY: [place] [address] PATHOLOGIST FIELD OPERATIONS COORDINATOR ALBA SCHULTE M.D. Performed By: #### U RDS #### [address] Cocaine Screen,Urine Negative Normal Negative [facility] Comment on above: Performed By: #### U RDS #### [address] Opiate Screen,Urine Negative Normal Negative [facility] Comment on above: Performed By: #### U RDS #### [address] Phencyclidine Screen,Urine Negative Normal Negative [facility] Comment on above: Performed By: #### U RDS #### [address] HCG ( test) IAyan d Ql (U)Ordered By: Willie Lambert on 08-22-2023 HCG ( test) Ql (U) Negative [facility] HCG,Urineon 08-22-2023 Beta HCG ( test) Ql (U) Negative Normal [facility] Comment on above: Result Comment: PERF ORMED BY: [place] [address] PATHOLOGIST FIELD OPERATIONS COORDINATOR ALBA SCHULTE M.D. Performed By: #### U HCG #### [address] Harshal 08-22-2023 L - -------- Specimen: [id number] Received: 08/22/23 Status: EDITH Camejo Num: [id number] Spec Type: Surgical Subm Dr: Willie Lambert MD Tissues: A Colon Biopsy (RANDOM COLON BX) Procedures: HE/2, Gross/Micro L4 -------- Age/ Patient Sex Location Account Attending Physician -------- Brian Sullivan [id number] Willie Lambert MD -------- SPEC NUM: [id number] RECD: 08/22/23 STATUS: EDITH CAMEJO NUM: [id number] SANTOS: 08/22/23 DR: Willie Lambert MD ENTERED: 08/22/[address] [facility] [address]: ROBERT TYPE: Surgical DEPT: S [...] Microscopic Description Microscopic examinations performed -------- Specimen: [id number] Received: 08/22/23 Status: EDITH Camejo Num: [id number] Spec Type: Surgical Subm Dr: Willie Lambert MD Tissues: A Colon Biopsy (RANDOM COLON BX) Procedures: HE/2, Gross/Micro L4 -------- Patient: Brian Sullivan [id number] (Continued) -------- Specimen: [id number] Received: 08/22/23 (Continued) Signed (signature on file) Yassine Muniz MD 08/23/23 1833 -------- Specimen: [id number] Received: 08/22/23 Status: EDITH Camejo Num: [id number] Spec Type: Surgical Subm Dr: Willie Lambert MD Tissues: A Colon Biopsy (RANDOM COLON BX) Procedures: HE/2, Gross/Micro L4 -------- Patient: GenoBrian [id number] (Continued) -------- Specimen: [id number] Received: 08/22/23 (Continued) CPT Codes 64016 -------- -------- Specimen: [id number] Received: 08/22/23 Status: EDITH Camejo Num: [id number] Spec Type: Surgical Subm Dr: Willie Lambert MD Tissues: A Colon Biopsy (RANDOM COLON BX) Procedures: HE/2, Gross/Micro L4 -------- Patient: SullivanBrian [id number] (Continued) -------- Signed (signature on file) Yassine Muniz MD 08/23/231832 Normal [facility] Opiates [Presence] in Urine by Screen methodOrdered By: Willie Lambert on 08-22-2023 Opiates Screen Ql (U) Negative Negative [facility] Phencyclidine Screen Ql (U)O rdered By: Willie Lambert on 08-22-2023 Phencyclidine Ql (U) Negative Negative [facility] C reactive protein [Mass/vol ume] in Serum or PlasmaOrdered By: Lj Stanton on 08-15-2023 CRP [Mass/Vol] < 0.5 mg/dL 0.0-0.5 [facility] Elastase.pancreatic [Mass/ma ss] in StoolOrdered By: Lj Stanton on 08-15-2023 Elastase.pancreatic (Stl) [Mass/Mass] 449 >200 [facility] Comment on above: Result Units: ug Tracy st./g Severe Pancreatic Insufficiency: <100 Moderate Pancreatic Insufficiency: 100 - 200 Normal: >200Performed at: - [facility] [id number] Director: Viet Taylor MD, Phone: [phone] Erythrocyte sedimentation ra te by Photometric methodOrdered By: Lj Stanton on 08-15-2023 ESR Photometric method (Bld) [Velocity] 16 mm/hr 0- [facility] HIV 1 and HIV-2 antibody ass ay with HIV-1 p24 antigen detectionOrdered By: Lj Stanton on 08-15-2023 HIV 1+2 Ab+HIV1 p24 Ag IA Ql Non-Reactive Non Reactive [facility] Comment on above: HIV NegativeHIV-1/HI V-2 antibodies and HIV-1 p24 antigen were NOTdetected. There is no laboratory evidence of HIV infection.Performed at: [facility] [address] [id number] Director: Joey Hoyos PhD, Phone: [phone] IgA [Mass/volume] in Serum o r PlasmaOrdered By: Lj Stanton on 08-15-2023 IgA [Mass/Vol] 180 mg/dL 87-352 [facility] Comment on above: Performed at: [facility] [address] [id number] Director: Joey Hoyos PhD, Phone: [phone] No Panel InformationOrdered By: Lj Stanton on 08-15-2023 Endomysial IgA Antibody Negative Negative [facility] Serum gliadin peptide IgA an tibody assay (units/volume)Ordered By: Lj Stanton on 08-15-2023 Gliadin peptide IgA Qn (S) 9 units 0- [facility] Comment on above: Negative 0 - 19 Weak Positive 20 - 30 Moderate to Strong Positive >30 Serum gliadin peptide IgG an tibody assay (units/volume)Ordered By: Lj Stanton on 08-15-2023 Gliadin peptide IgG Qn (S) 4 units 0- [facility] Comment on above: Negative 0 - 19 Weak Positive 20 - 30 Moderate to Strong Positive >30 Serum tissue transglutaminas e (tTG) IgA antibody assay (units/volume)Ordered By: Lj Stanton on 08-15-2023 tTG IgA Qn (S) <2 U/mL 0-3 [facility] Comment on above: Negative 0 - 3 Weak Positive 4 - 10 Positive >10 Tissue Transglutaminase (tTG) has been identified as the endomysial antigen. Studies have demonstr- ated that endomysial IgA antibodies have over 99% specificity for gluten sensitive enteropathy. Serum tissue transglutaminas e (tTG) IgG antibody assay (units/volume)Ordered By: Lj Stanton on 08-15-2023 tTG IgG Qn (S) 4 U/mL 0-5 [facility] Comment on above: Negative 0 - 5 Weak Positive 6 - 9 Positive >9 Stool bacteria identificatio n by cultureOrdered By: Lj Stanton on 08-15-2023 Bacteria identified Cx Nom (Stl) [facility] Thyrotropin [Units/volume] i n Serum or PlasmaOrdered By: Lj Stanton on 08-15-2023 TSH Qn 0.57 m[IU]/L 0.45-5.33 [facility] C Urineon 07-03-2023 Bacteria identified Cx Nom [...] Locations R1: [facility] [address] [place] [address], [id number] , [place], Normal [facility] Comment on above: Performed By: #### 2 [id number] #### [facility] [address] [place] [address] Discharge Instructionson Discharge Instructions [id number] #1.00CD:127 Normal [facility] Outside Recordson 07-02-2023 Outside Records [id number]# 1.00CD:127 Normal [facility] US Pelvis Non-OB Completeon 07-02-2023 US [...] TEDDY Technical Comments Transabdominal Ultrasound Performed Normal [facility] Auto Diffon 07-01-2023 Basophils/100 WBC (Bld) 0.2 % Normal 0.0-2.0 [facility] Comment on above: Order Comment: Order Added by Discern Expert. Performed By: #### 2 401106, 1359698, [id number], [id number] #### [facility] [address] [place] [address] Basophils/Leukocytes Auto (Bld) [Pure # fraction] 0.0 E9/L Normal 0.0-0.2 [facility] Comment on above: Order Comment: Order Added by Discern Expert. Performed By: #### 2 995052, 4205233, 1651931, [id number] #### [facility] [address] [place] [address] Eosinophils/100 WBC (Bld) 0.0 % Normal 0.0-8.0 [facility] Comment on above: Order Comment: Order Added by Discern Expert. Performed By: #### 2 114106, 7204990, 8603641, [id number] #### [facility] [address] [place] [address] Eosinophils/Leukocytes Auto (Bld) [Pure # fraction] 0.0 E9/L Normal 0.0-0.5 [facility] Comment on above: Order Comment: Order Added by Discern Expert. Performed By: #### 2 026478, 9548589, 0358156, [id number] #### [facility] [address] [place] [address] Lymphocytes/100 WBC (Bld) 16.2 % Normal 14.0-50.0 [facility] Comment on above: Order Comment: Order Added by Discern Expert. Performed By: #### 2 845228, 4094795, 6107213, [id number] #### [facility] [address] [place] [address] Lymphocytes/Leukocytes Auto (Bld) [Pure # fraction] 1.5 E9/L Normal 1.0-4.0 [facility] Comment on above: Order Comment: Order Added by Discern Expert. Performed By: #### 2 350552, 2756249, 1297552, [id number] #### [facility] [address] [place] [address] Monocytes/100 WBC (Bld) 6.9 % Normal 4.0-14.0 [facility] Comment on above: Order Comment: Order Added by Discern Expert. Performed By: #### 2 162908, 0966788, 3242113, [id number] #### [facility] [address] [place] [address] Monocytes/Leukocytes Auto (Bld) [Pure # fraction] 0.7 E9/L Normal 0.2-1.0 [facility] Comment on above: Order Comment: Order Added by Discern Expert. Performed By: #### 2 594188, 7361829, 0312998, [id number] #### [facility] [address] [place] [address] Neutrophils/100 WBC (Bld) 76.7 % High 36.0-75.0 [facility] Comment on above: Order Comment: Order Added by Discern Expert. Performed By: #### 2 991646, 7211233, 8576202, 70615855 #### [facility] [address] [place] [address] Neutrophils/Leukocytes Auto (Bld) [Pure # fraction] 7.2 E9/L Normal 2.0-7.5 [facility] Comment on above: Order Comment: Order Added by Discern Expert. Performed By: #### 2 152356, 6973814, 4724118, 14758395 #### [facility] [address] [place] [address] BMP 07-01-2023 Creatinine [Mass/Vol] 0.7 mg/dL Normal 0.5-1.3 [facility] Comment on above: Performed By: #### 2 839004, 4487007, 7932012, 84563140 #### [facility] [address] [place] [address] Urea nitrogen [Mass/Vol] 9 mg/dL Normal 5-21 [facility] Comment on above: Performed By: #### 2 254595, 6616061, 5131404, 76908299 #### [facility] [address] [place] [address] Urea nitrogen/Creatinine [Mass ratio] 13 No Units Normal 10-20 [facility] Comment on above: Performed By: #### 2 037429, 8038649, 6667903, [id number] #### [facility] [address] [place] [address] Anion gap [Moles/Vol] 5 mmol/L Low 6-16 [facility] Comment on above: Performed By: #### 2 631079, 3993767, 7051954, 62843771 #### [facility] [address] [place] [address] Calcium [Mass/Vol] 8.6 mg/dL Low 8.9-11.1 [facility] Comment on above: Performed By: #### 2 465694, 4299209, 2764474, 36884342 #### [facility] [address] [place] [address] Chloride [Moles/Vol] 112 mmol/L High 101-111 [facility] Comment on above: Performed By: #### 2 535175, 6220089, 9255936, 68356443 #### [facility] [address] [place] [address] CO2 [Moles/Vol] 27 mmol/L Normal 21-31 [facility] Comment on above: Performed By: #### 2 572122, 4162030, 9086305, 37518709 #### [facility] [address] [place] [address] Glucose [Mass/Vol] 120 mg/dL Normal 55-199 [facility] Comment on above: Result Comment: If t his glucose result represents a fasting glucose, interpretation should refer to the following reference range: 55-99 mg/dL Performed By: #### 2 696637, 2040885, 4871987, 73715318 #### [facility] [address] [place] [address] Potassium [Moles/Vol] 3.8 mmol/L Normal 3.5-5.3 [facility] Comment on above: Performed By: #### 2 916588, 5314070, 4171034, 18359281 #### [facility] [address] [place] [address] Sodium [Moles/Vol] 140 mmol/L Normal 135-145 [facility] Comment on above: Performed By: #### 2 121812, 2672413, 0019873, 11788380 #### [facility] [address] [place] [address] CBC w/ Auto Diffon Erythrocyte distribution width (RBC) [Ratio] 14.8 % High 10.9-14.2 [facility] Comment on above: Performed By: #### 2 447321, 7548210, 5994689, 10510998 #### [facility] [address] [place] [address] Hematocrit (Bld) [Volume fraction] 38.0 % Normal 34.0-46.0 [facility] Comment on above: Performed By: #### 2 456391, 0722987, 4331400, 63634226 #### [facility] [address] [place] [address] Hemoglobin (Bld) [Mass/Vol] 12.8 g/dL Normal 12.0-16.0 [facility] Comment on above: Performed By: #### 2 280919, 1616791, 0144432, 14248276 #### [facility] [address] [place] [address] MCH (RBC) [Entitic mass] 27.5 pg Normal 27.0-34.0 [facility] Comment on above: Performed By: #### 2 152437, 7988424, 0342892, 09893837 #### [facility] [address] [place] [address] MCHC (RBC) [Mass/Vol] 33.8 g/dL Normal 31.4-36.0 [facility] Comment on above: Performed By: #### 2 919937, 6151619, 6163116, 18575903 #### [facility] [address] [place] [address] MCV (RBC) [Entitic vol] 81.3 fL Normal 80.0-100.0 [facility] Comment on above: Performed By: #### 2 247963, 2340081, 3336773, 47556583 #### [facility] [address] [place] [address] Platelet mean volume (Bld) [Entitic vol] 6.8 fL Normal 6.4-10.8 [facility] Comment on above: Performed By: #### 2 960177, 6704138, 7083869, 85875452 #### [facility] [address] [place] [address] Platelets (Bld) [#/Vol] 240.0 E9/L Normal 150.0-500.0 [facility] Comment on above: Performed By: #### 2 674358, 8523596, 4530179, 11503218 #### [facility] [address] [place] [address] RBC (Bld) [#/Vol] 4.7 E12/L Normal 4.3-5.9 [facility] Comment on above: Performed By: #### 2 882994, 4820464, 4977382, 86874509 #### [facility] [address] [place] [address] WBC corrected for nucl RBC Auto (Bld) [#/Vol] 9.4 E9/L Normal 4.0-11.0 [facility] Comment on above: Performed By: #### 2 880899, 7229256, 1977977, 65274305 #### [facility] [address] [place] [address] CHEMISTRYOrdered By: SYSTEM SYSTEM on 07-01-2023 Anion gap [Moles/Vol] 5 mmol/L Low 6 - 16 mEq/L [facility] Calcium [Mass/Vol] 8.6 mg/dL Low 8.9 - 11. 1 mg/dL [facility] Chloride [Moles/Vol] 112 mmol/L High 101 - 1 11 mmol/L [facility] CO2 [Moles/Vol] 27 mmol/L Normal 21 - 31 mmol/L [facility] Creatinine [Mass/Vol] 0.7 mg/dL Normal 0.5 - 1.3 mg/dL [facility] Remisol GFR/1.73 sq M.predicted among non-blacks MDRD (S/P/Bld) [Vol rate/Area] 123 mL/min/1.73 m2 Normal >=59mL/min/1 .73 m2 [facility] Chem S Glucose [Mass/Vol] 120 mg/dL Normal 55 - 199 mg/dL [facility] Remisol Potassium [Moles/Vol] 3.8 mmol/L Normal 3.5 - 5.3 mmol/L [facility] Remisol Sodium [Moles/Vol] 140 mmol/L Normal 135 - 145 mmol/L [facility] Remisol Urea nitrogen [Mass/Vol] 9 mg/dL Normal 5 - 21 mg/dL [facility] Remisol Urea nitrogen/Creatinine [Mass ratio] 13 mg/mg Normal 10 - 20 [facility] Remisol Consent for Treatmenton 06-09 Consent for Treatment [id number] .00CD:127 Normal [facility] ED Clinical Summaryon 2022 ED Clinical Summary [place] [id number] ED Clinical Summary Person Information Name: BRIAN SULLIVAN/[facility] Age: 27 Years : 1995 Sex: Female Language: Kiswahili PCP: SHWETA GONZALEZ Marital Status: Single Visit [...] 07/01/2023 21:05:09 07/01/2023 21:05:09 07/01/2023 21:05:09 ADDRESS: [address] [place] [id number] PHYS DOC NOTES: Addendum by Kendrick Zacarias MD on July 01, 2023 20:41:03 EDT MEDICAL INFORMATION: Prescriptions Given: New Medications [facility], [address] [id number], [phone] ondansetron (Zofran ODT 4 mg Tab-Dis) 1 Tablets By Mouth every 8 hours. Refills: 0. Printed Prescriptions acetaminophen-oxycodo ne (Percocet 5 mg-325 mg oral tablet) 1 Tablets By Mouth every 6 hours. Refills: 0. PATIENT EDUCATION INFORMATION: Instructions: Pelvic Pain, Female, Bxri-lh-Yjxh Follow up: With: Address: When: [facility], [address] [place] [address] [place] [address] Business (1) In 3 days 07/04/2023 Comments: Call the office first thing Sunday morning With: Address: When: SHWETA GONZALEZ In 3 days DIAGNOSIS: 1:Pelvic pain Normal [facility] ED Note-Nursingon 07-01-2023 ED Note-Nursing at this time pt states she wishes to wait in the waiting room for her ride. pt states she did not drive. this nurse states pt is unable to drive d/t medication given per dec. pt verbalized understanding. Normal [facility] ED Note-Physicianon 07-01-20 ED Note-Physician Basic Information Time Seen: Mirna Mcmullen M.D. 07/01/2023 17:57 Chief Complaint Pt reports abd pain for one week. Pt went to [place] ED 2 days ago, given 2 ABX [...] She was seen 3 days ago at [facility] and CAT scan done. She was diagnosed with colitis and on Cipro and Flagyl given. The patient states she is getting worse. States she went back to [facility], she thinks yesterday and they did a [...] getting an ultrasound of the pelvis at [facility]. The patient states she had temperature of [...] and Complexity of Problems Differential Diagnosis: [] [facility] Data External documents reviewed: [] My EKG interpretation: [] My CT interpretation: [] My X-ray interpretation: [] My Ultrasound interpretation: [] Decision rules/scores evaluated: [] Discussed with: [] Treatment and Disposition ED Course: Presented with left pelvic pain. She has been seen at [facility] twice. The urine is negative. The urine [...] CBC w/ Auto Diff Rapid COVID Antigen ([facility]) U Beta Hcg Qual UA With Cult [...] Leuk Est (more content not included)... Normal [facility] Comment on above: Result Comment: Elec [...] Follow these instructions at home: ? Take ukvm-pmd-ekjaqhg and prescription medicines only as told by [...] Reviewed: 01/31/2022 Elsevier Patient Education ? 2022 [employer] Normal [facility] ED Patient Summaryon 023 ED Patient Summary [address] [address] Patient Discharge Instructions Person Information Name: BRIAN SULLIVAN Age: 27 Years Arrival Date: 07/01/2023 17:48:54 Discharge Diagnosis: 1:Pelvic pain Primary Care Physician: SHWETA GONZALEZ Provider Information Primary Provider: Mirna Mcmullen M.D. Advanced [employer] Equipment Installer And Servicer:None The exam and treatment you received in the Emergency Department were for an urgent problem and are not intended as complete care. It is important that you follow up with a doctor, nurse practitioner, or physician?s floor covering printer assistant for ongoing care. If your symptoms become worse or you do not improve as expected and you are unable to reach your usual health care provider, you should return to the Emergency Department. We are available 24 hours a day. BRIAN SULLIVAN has been given the following list of patient education materials, prescriptions and follow-up instructions: Follow-up Instructions: With: Address: When: Ghanshyam NIETO [facility], [address] [place] [address] [place] [address] Business (1) In 3 days 07/04/2023 Comments: Call the office first thing Sunday morning With: Address: When: SHWETA GONZALEZ In 3 days In the event that this physician does not participate in your insurance network, please consult with your insurance company to find a nearby participating provider. Patient Education Materials: Pelvic Pain, Female, Dqtc-ci-Bmio A MESSAGE TO ALL PATIENTS REGARDING OPIOIDS PRESCRIPTION OPIOIDS: WHAT YOU NEED TO KNOW Prescription opioids can be used to help relieve rdpypwwp-lg-jwphtd pain and are often prescribed following a [...] your hea (more content not included)... Normal [facility] HEMATOLOGYOrdered By: SYSTEM SYSTEM on 07-01-2023 Basophils/100 WBC (Bld) 0.2 % Normal 0.0 - 2.0 % [facility] Basophils/Leukocytes Auto (Bld) [Pure # fraction] 0.0 E9/L Normal 0.0 - 0.2 E9/L [facility]eAuto[facility] Eosinophils/100 WBC (Bld) 0.0 % Normal 0.0 - 8.0 % [facility]eAuto[facility] Eosinophils/Leukocytes Auto (Bld) [Pure # fraction] 0.0 E9/L Normal 0.0 - 0.5 E9/L [facility] Lymphocytes/100 WBC (Bld) 16.2 % Normal 14.0 - 50.0 % [facility]eAuto[facility] Lymphocytes/Leukocytes Auto (Bld) [Pure # fraction] 1.5 E9/L Normal 1.0 - 4.0 E9/L [facility]eAuto[facility] Monocytes/100 WBC (Bld) 6.9 % Normal 4.0 - 14.0 % [facility] Monocytes/Leukocytes Auto (Bld) [Pure # fraction] 0.7 E9/L Normal 0.2 - 1.0 E9/L [facility] Neutrophils/100 WBC (Bld) 76.7 % High 36.0 - 75.0 % [facility] Neutrophils/Leukocytes Auto (Bld) [Pure # fraction] 7.2 E9/L Normal 2.0 - 7.5 E9/L [facility] HEMATOLOGYOrdered By: Cisco Haro on 07-01-2023 Erythrocyte distribution width (RBC) [Ratio] 14.8 % High 10.9 - 14.2 % [facility] Hematocrit (Bld) [Volume fraction] 38.0 % [...] [facility] Platelets (Bld) [#/Vol] 240.0 E9/L Normal 150. 0 - 500.0 E9/L [facility] RBC (Bld) [#/Vol] 4.7 E12/L Normal 4.3 - 5.9 E12/L [facility] WBC corrected for nucl RBC Auto (Bld) [#/Vol] 9.4 E9/L Normal 4.0 - 11.0 E9/L [facility] MICRO OTHER TESTSOrdered By: Lambert Clayton on 07-01-2023 Rapid COV Int NEG Ctl Pass (07/01/23 6:41 PM) Normal [facility] Man Sero Rapid COV Int POS Ctl Pass (07/01/23 6:41 PM) Normal [facility] Man Sero SARS-CoV+SARS-CoV-2 (COVID-19) Ag IA.rapid Ql (Resp) Not Detected (07/01/23 6:41 PM) Normal Not Detected [facility] Man Sero Rapid COVID Antigen ([facility])on 07-01-2023 Rapid COV Int NEG Ctl Pass Normal Fis [facility] Comment on above: Performed By: #### 2 [id number] #### [facility] [address] [place] [address] Rapid COV Int POS Ctl Pass Normal Fis her [facility] Comment on above: Performed By: #### 2 [id number] #### [facility] [address] [place] [address] SARS-CoV+SARS-CoV-2 (COVID-19) Ag IA.rapid Ql (Resp) Not detected Normal Not Detected [facility] Comment on above: Result Comment: The [employer]armitor? System for Rapid Detection of SARS-CoV-2 is [...] or revoked sooner. Performed By: #### 2 [id number] #### [facility] [address] [place] [address] SEROLOGYOrdered By: Lambert For ster on 07-01-2023 HCG.beta subunit (U) [Moles/Vol] Negative Normal [facility] Man Sero U BetaHcg Qualon 07-01-2023 HCG.beta subunit (U) [Moles/Vol] Negative Normal [facility] Comment on above: Performed By: #### 2 [id number] #### [facility] [address] [place] [address] UA With Cult Reflexon 2022 Bilirubin Ql (U) Negative Normal Negative [facility] Comment on above: Order Comment: Urina ry Catheter Insertion triggered Urinalysis With Culture Reflex order by discern. Performed By: #### 2 [id number] #### [facility] [address] [place] [address] Clarity (U) CLEAR Normal Clear [facility] Comment on above: Order Comment: Urina ry Catheter Insertion triggered Urinalysis With Culture Reflex order by discern. Performed By: #### 2 [id number] #### [facility] [address] [place] [address] Color (U) YELLOW Normal Yellow [facility] Comment on above: Order Comment: Urina ry Catheter Insertion triggered Urinalysis With Culture Reflex order by discern. Performed By: #### 2 [id number] #### [facility] [address] [place] [address] Crystals LM Ql (Urine sed) Present Normal [facility] Comment on above: Order Comment: Urina ry Catheter Insertion triggered Urinalysis With Culture Reflex order by discern. Performed By: #### 2 [id number] #### [facility] [address] [place] [address] Epithelial cells.squamous LM.HPF (Urine sed) [#/Area] 0-2 Normal 0-2 [facility] Comment on above: Order Comment: Urina ry Catheter Insertion triggered Urinalysis With Culture Reflex order by discern. Performed By: #### 2 [id number] #### [facility] [address] [place] [address] Glucose Test strip (U) [Mass/Vol] Negative Normal Negative [facility] Comment on above: Order Comment: Urina ry Catheter Insertion triggered Urinalysis With Culture Reflex order by discern. Performed By: #### 2 [id number] #### [facility] [address] [place] [address] Hemoglobin Ql (U) Negative Normal Negative [facility] Comment on above: Order Comment: Urina ry Catheter Insertion triggered Urinalysis With Culture Reflex order by discern. Performed By: #### 2 [id number] #### [facility] [address] [place] [address] Ketones (U) [Mass/Vol] Negative Normal Negative [facility] Comment on above: Order Comment: Urina ry Catheter Insertion triggered Urinalysis With Culture Reflex order by discern. Performed By: #### 2 [id number] #### [facility] [address] [place] [address] [place].plasma/[place]. RBC (Bld) [Mass ratio] 0-3 Normal 0-3 [facility] Comment on above: Order Comment: Urina ry Catheter Insertion triggered Urinalysis With Culture Reflex order by discern. Performed By: #### 2 [id number] #### [facility] [address] [place] [address] Nitrite Ql (U) Negative Normal Negative [facility] Comment on above: Order Comment: Urina ry Catheter Insertion triggered Urinalysis With Culture Reflex order by discern. Performed By: #### 2 [id number] #### [facility] [address] [place] [address] pH (U) 6.5 [pH] Invalid Interpretation Code 5.0-9.0 [facility] Comment on above: Order Comment: Urina ry Catheter Insertion triggered Urinalysis With Culture Reflex order by discern. Performed By: #### 2 [id number] #### [facility] [address] [place] [address] Protein (U) [Mass/Vol] Negative Normal Negative [facility] Comment on above: Order Comment: Urina ry Catheter Insertion triggered Urinalysis With Culture Reflex order by discern. Performed By: #### 2 [id number] #### [facility] [address] [place] [address] Specific gravity (U) [Rel density] 1.020 Invalid Interpretation Code 1.005-1.030 [facility] Comment on above: Order Comment: Urina ry Catheter Insertion triggered Urinalysis With Culture Reflex order by discern. Performed By: #### 2 [id number] #### [facility] [address] [place] [address] Type of Urine collection method Clean Catch Normal [facility] Comment on above: Order Comment: Urina ry Catheter Insertion triggered Urinalysis With Culture Reflex order by discern. Performed By: #### 2 [id number] #### [facility] [address] [place], [place] [id number] Urobilinogen Qn (U) 0.2 {Mary Ann'U}/dL Normal 0.0-1.0 [facility] Comment on above: Order Comment: Urina ry Catheter Insertion triggered Urinalysis With Culture Reflex order by discern. Performed By: #### 2 [id number] #### [facility] [address] [place] [address] WBC Auto Ql (U) Negative Normal Negative [facility] Comment on above: Order Comment: Urina ry Catheter Insertion triggered Urinalysis With Culture Reflex order by discern. Performed By: #### 2 [id number] #### [facility] [address] [place] [address] WBC LM.HPF (Urine sed) [#/Area] 0-5 Normal 0-5 [facility] Comment on above: Order Comment: Urina ry Catheter Insertion triggered Urinalysis With Culture Reflex order by discern. Performed By: #### 2 [id number] #### [facility] [address] [place] [address] Bacteria LM Ql (Urine sed) TRACE Normal Trace [facility] Comment on above: Performed By: #### 2 [id number] #### [facility] [address] [place] [address] Bilirubin Ql (U) Negative Normal Negative [facility] Comment on above: Performed By: #### 2 [id number] #### [facility] [address] [place] [address] Clarity (U) CLEAR Normal Clear [facility] Comment on above: Performed By: #### 2 [id number] #### [facility] [address] [place] [address] Color (U) YELLOW Normal Yellow [facility] Comment on above: Performed By: #### 2 [id number] #### [facility] [address] [place] [address] Crystals LM Ql (Urine sed) Present Normal [facility] Comment on above: Performed By: #### 2 [id number] #### [facility] [address] [place] [address] Epithelial cells.squamous LM.HPF (Urine sed) [#/Area] 3-4 Normal 0-2 [facility] Comment on above: Performed By: #### 2 [id number] #### [facility] [address] [place] [address] Glucose Test strip (U) [Mass/Vol] Negative Normal Negative [facility] Comment on above: Performed By: #### 2 [id number] #### [facility] [address] [place] [address] Hemoglobin Ql (U) Negative Normal Negative [facility] Comment on above: Performed By: #### 2 [id number] #### [facility] [address] [place] [address] Ketones (U) [Mass/Vol] Negative Normal Negative [facility] Comment on above: Performed By: #### 2 [id number] #### [facility] [address] [place] [address] [place].plasma/[place]. RBC (Bld) [Mass ratio] 0-3 Normal 0-3 [facility] Comment on above: Performed By: #### 2 [id number] #### [facility] [address] [place] [address] Mucus Ql (Urine sed) 2+ Normal [facility] Comment on above: Performed By: #### 2 [id number] #### [facility] [address] [place] [address] Nitrite Ql (U) Negative Normal Negative [facility] Comment on above: Performed By: #### 2 [id number] #### [facility] [address] [place] [address] pH (U) 7.5 [pH] Invalid Interpretation Code 5.0-9.0 [facility] Comment on above: Performed By: #### 2 [id number] #### [facility] [address] [place] [address] Protein (U) [Mass/Vol] Negative Normal Negative [facility] Comment on above: Performed By: #### 2 [id number] #### [facility] [address] [place] [address] Specific gravity (U) [Rel density] 1.020 Invalid Interpretation Code 1.005-1.030 [facility] Comment on above: Performed By: #### 2 [id number] #### [facility] [address] [place] [address] Type of Urine collection method Clean Catch Normal [facility] Comment on above: Performed By: #### 2 [id number] #### [facility] [address] [place] [address] Urobilinogen Qn (U) 0.2 {Mary Ann'U}/dL Normal 0.0-1.0 [facility] Comment on above: Performed By: #### 2 [id number] #### [facility] [address] [place] [address] WBC Auto Ql (U) 1+ Abnormal Negative [facility] Comment on above: Performed By: #### 2 [id number] #### [facility] [address] [place] [address] WBC LM.HPF (Urine sed) [#/Area] 0-5 Normal 0-5 [facility] Comment on above: Performed By: #### 2 [id number] #### [facility] [address] [place] [address] URINALYSISOrdered By: Lambert fernando on 07-01-2023 Bilirubin Ql (U) Negative (07/01/23 7:07 PM) Normal Negative [facility] UA Auto SS Clarity (U) Clear (07/01/23 [...] PM) Normal Negative [facility] UA Auto SS [place].plasma/[place]. RBC (Bld) [Mass ratio] 0-3 /HPF Normal 0-3/HPF [facility] UA A uto SS Nitrite Ql (U) Negative (07/01/23 7:07 [...] [facility] UA Auto SS Urobilinogen Qn (U) 0.7403975 {Mary Ann'U}/dL Normal 0.0 - 1.0 EU/dL [...] [facility] UA Auto SS Clarity (U) Clear (07/01/23 6:14 PM) Normal Clear [facility] UA Auto [...] PM) Normal Negative [facility] UA Auto SS [place].plasma/[place]. RBC (Bld) [Mass ratio] 0-3 /HPF Normal 0-3/HPF [facility] UA A uto SS Mucus Ql (Urine sed) 2+ (07/01/23 [...] Desc Clean Catch (07/01/23 6:14 PM) Normal [facility] UA Auto SS Urobilinogen Qn (U) 0.2415637 {Mary Ann'U}/dL Normal 0.0 - 1.0 EU/dL [facility] UA Auto SS WBC Auto Ql (U) 1+ *ABN* (07/01/23 6:14 PM) Invalid Interpretation Code Negative [facility] UA Auto SS WBC LM.HPF (Urine sed) [#/Area] 0-5 /HPF Normal 0-5/HPF [facility] UA Auto SS eGFRon 07-01-2023 GFR/1.73 sq M.predicted among non-blacks MDRD (S/P/Bld) [Vol rate/Area] 123 mL/min/1.73 m2 Normal >=59 [facility] Comment on above: Order Comment: Order added by Discern Expert. Result Comment: [employer] Tender adama kidney disease could be indicated at eGFR's of less than 60 mL/min/1.73m2. Kidney failure is indicated at less than 15 mL/min/1.73m2. Performed By: #### 2 [id number] #### [facility] [address] [place] [address] US PELVIS AND TRANSVAGon US PELVIS AND [...] ILENE MERCADO Date: 2022-07-18 21:34 Normal [facility] CBC AUTO DIFFon 07-06-2022 BASO # 0.0 103/ul Normal 0.0-0.1 [facility] Comment on above: Performed By: #### E FERN UMICRO #### [facility] [address] [place] [address] Dr. Hans Muniz Basophils/100 WBC (Bld) 0.2 % Normal 0.2-2.0 [facility] Comment on above: Performed By: #### Lora SHIRLEY UMICRO #### [facility] [address] [place] [address] Dr. Hans Muniz EO # 0.2 103/ul Normal 0.0-0.7 [facility] Comment on above: Performed By: #### Lora SHIRLEY UMICRO #### [facility] [address] [place] [address] Dr. Hans Muniz Eosinophils/100 WBC (Bld) 2.3 % Normal 0.9-7.0 [facility] Comment on above: Performed By: #### E FERN, UMICRO #### [facility] [address] [place] [address] Dr. Hnas Muniz Erythrocyte distribution width (RBC) [Ratio] 13.0 % Normal 11.0-15.0 [facility] Comment on above: Performed By: #### E FERN, UMICRO #### [facility] [address] [place] [address] Dr. Hans Muniz Hematocrit (Bld) [Volume fraction] 45.7 % Normal 36.0-48.0 [facility] Comment on above: Performed By: #### E FERN, UMICRO #### [facility] [address] [place] [address] Dr. Hans Muniz Hemoglobin (Bld) [Mass/Vol] 14.7 g/dL Normal 12.0-16.0 [facility] Comment on above: Performed By: #### YANE RODRÍGUEZ #### [facility] [address] [place] [address] Dr. Hans Muniz IG # 0.03 10e3/ul Normal 0.00-0.03 [facility] Comment on above: Performed By: #### SHAWN RODRÍGUEZRO #### [facility] [address] [place] [address] Dr. Hans Muniz IG % 0.4 % Normal 0.0-0.5 [facility] Comment on above: Performed By: #### YANE RODRÍGUEZ #### [facility] [address] [place] [address] Dr. Hans Muniz LYMPH # 1.9 103/ul Normal 1.2-3.8 [facility] Comment on above: Performed By: #### YANE RODRÍGUEZ #### [facility] [address] [place] [address] Dr. Hans Muniz Lymphocytes/100 WBC (Bld) 23.0 % Normal 20.5-60.0 [facility] Comment on above: Performed By: #### YANE RODRÍGUEZ #### [facility] [address] [place] [address] Dr. Hans Muniz MANUAL DIFF REQ NO Normal [facility] [place] [facility] Comment on above: Performed By: #### SHAWN RODRÍGUEZRO #### [facility] [address] [place] [address] Dr. Hans Muniz MCH (RBC) [Entitic mass] 27.1 pg Normal 26.7-34.0 [facility] Comment on above: Performed By: #### SHAWN RODRÍGUEZRO #### [facility] [address] [place] [address] Dr. Hans Muniz MCHC (RBC) [Mass/Vol] 32.2 g/dL Normal 29.9-35.2 [facility] Comment on above: Performed By: #### SHAWN RODRÍGUEZRO #### [facility] [address] [place] [address] Dr. Hans Muniz MCV (RBC) [Entitic vol] 84.3 fL Normal 81.0-99.0 [facility] Comment on above: Performed By: #### Lora SHIRLEY UMICRO #### [facility] [address] [place] [address] Dr. Hans Muniz MONO # 0.6 103/ul Normal 0.3-0.8 [facility] Comment on above: Performed By: #### Lora SHIRLEY UMICRO #### [facility] [address] [place] [address] Dr. Hans Muniz Monocytes/100 WBC (Bld) 7.1 % Normal 1.7-12.0 [facility] Comment on above: Performed By: #### Lora SHIRLEY UMICRO #### [facility] [address] [place] [address] Dr. Hans Muniz NEUT # 5.6 103/ul Normal 1.4-6.5 [facility] Comment on above: Performed By: #### Lora SHIRLEY UMICRO #### [facility] [address] [place] [address] Dr. Hans Muniz Neutrophils/100 WBC (Bld) 67.0 % Normal 43.0-75.0 [facility] Comment on above: Performed By: #### Lora SHIRLEY UMICRO #### [facility] [address] [place] [address] Dr. Hans Muniz Platelet mean volume (Bld) [Entitic vol] 8.5 fL Critically low 9.5-13.5 [facility] Comment on above: Performed By: #### Lora SHIRLEY UMICRO #### [facility] [address] [place] [address] Dr. Hans Muniz PLT 307 103/ul Normal 150-450 [facility] Comment on above: Performed By: #### Lora SHIRLEY UMICRO #### [facility] [address] [place] [address] Dr. Hans Muniz RBC 5.42 106/ul Critically high 4.20-5.40 [facility] Comment on above: Performed By: #### Lora YANE SHIRLEY #### [facility] [address] [place], [place] [address] Dr. Hans Muniz WBC 8.4 103/ul Normal 4.0-11.0 [facility] Comment on above: Performed By: #### Lora YANE SHIRLEY #### [facility] [address] [place], [place] [address] ABD/PELV W CONon 07-06-20 CT ABD/PELV W CON EXAMINATION: CT ABD/PELV [...] ILENE MERCADO Date: 2022-07-06 15:46 Normal [facility] SARS-CoV-2 (COVID-19) RNA BALTAZAR+probe Ql (Unsp spec) Not detected Normal NOT DETECTED [facility] Comment on above: Result Comment: When diagnostic [...] for this test is supported by the Tax Compliance Officer of Health and Human Service's declaration that [...] used). Performed By: #### E RURYANE #### [facility] [address] [place] [address] Dr. Hans Muniz ER URINE PROFILEon 2 Bilirubin Ql (U) Negative Normal NEGATIVE [facility] Comment on above: Performed By: #### E RUR #### [facility] [address] [place] [address] Dr. Hans Muniz Clarity (U) CLEAR Normal CLEAR [facility] Comment on above: Performed By: #### E RUR #### [facility] [address] [place] [address] Dr. Hans Muniz Color (U) YELLOW Normal YELLOW [facility] Comment on above: Performed By: #### E RUR #### [facility] [address] [place] [address] Dr. Hans SCHAEFER A micrscopic examination will be performed if indicated. Normal [facility] Comment on above: Performed By: #### E RUR #### [facility] [address] [place] [address] Dr. Hans Muniz Glucose Ql (U) Negative Normal NEGATIVE [facility] Comment on above: Performed By: #### E RUR #### [facility] [address] [place] [address] Dr. Hans Muniz Hemoglobin Ql (U) Negative Normal NEGATIVE [facility] Comment on above: Performed By: #### E RUR #### [facility] [address] [place] [address] Dr. Hans Muniz Ketones Ql (U) Negative Normal NEGATIVE [facility] Comment on above: Performed By: #### E RUR #### [facility] [address] [place] [address] Dr. Hans Muniz LEUKOCYTES Negative Normal NEGATIVE [facility] Comment on above: Performed By: #### E RUR #### [facility] [address] [place] [address] Dr. Hans Muniz Nitrite Ql (U) Negative Normal NEGATIVE [facility] Comment on above: Performed By: #### E RUR #### [facility] [address] [place] [address] Dr. Hans Muniz pH (U) 7.0 [pH] Normal 5-9 [facility] Comment on above: Performed By: #### E RUR #### [facility] [address] [place] [address] Dr. Hans Muniz SPEC GRAVITY 1.020 Normal 1.005-<=1.02 5 [facility] Comment on above: Performed By: #### E RUR #### [facility] [address] [place] [address] Dr. Hans Muniz UA PROTEIN Negative Normal NEGATIVE/ TRACE [facility] Comment on above: Performed By: #### E RUR #### [facility] [address] [place] [address] Dr. Hans Muniz UR MICRO IND NOT INDICATED Normal [facility] [place] [facility] Comment on above: Performed By: #### E RUR #### [facility] [address] [place] [address] Dr. Hans Muniz Urobilinogen Qn (U) 0.2 {Mary Ann'U}/dL Normal 0.2 - 1. 0 [facility] Comment on above: Performed By: #### E RUR #### [facility] [address] [place] [address] Dr. Hans Muniz LACTATE/LACTIC ACIDon 2021 Lactate [Moles/Vol] 1.7 mmol/L Normal 0.4-1.9 [facility] Comment on above: Performed By: #### E RUR, UMICRO #### [facility] [address] [place] [address] Dr. Hans Muniz PROF CHEM 8 (BAS METB)on Anion gap [Moles/Vol] 12.3 mmol/L Normal [facility] Comment on above: Performed By: #### E RUR, UMICRO #### [facility] [address] [place] [address] Dr. Hans Muniz Calcium [Mass/Vol] 9.2 mg/dL Normal 8.5-10.1 [facility] Comment on above: Performed By: #### E RUR, UMICRO #### [facility] [address] [place] [address] Dr. Hans Muniz Chloride [Moles/Vol] 101 mmol/L Normal 98-107 [facility] Comment on above: Performed By: #### E RUR, UMICRO #### [facility] [address] [place] [address] Dr. Hans Muniz CO2 [Moles/Vol] 26.7 mmol/L Normal 21.0-32.0 [facility] Comment on above: Performed By: #### E RUR, UMICRO #### [facility] [address] [place] [address] Dr. Hans Muniz Creatinine [Mass/Vol] 0.75 mg/dL Normal 0.55-1.02 [facility] Comment on above: Performed By: #### E FERN, UMICRO #### [facility] [address] [place] [address] [address] Hans Muniz EGFR-AF FIJIAN >60 Normal >=60 [facility] Comment on above: Performed By: #### E JENNIFERR, UMICRO #### [facility] [address] [place] [address] [address] Hans Muniz EGFR-NON AF FIJIAN >60 Normal >=60 [facility] Comment on above: Performed By: #### E FERN, UMICRO #### [facility] [address] [place] [address] Dr. Hans Muniz Glucose [Mass/Vol] 96 mg/dL Normal 74-106 [facility] Comment on above: Performed By: #### E FERN, UMICRO #### [facility] [address] [place] [address] Dr. Hans Muniz Potassium [Moles/Vol] 4.0 mmol/L Normal 3.5-5.1 [facility] Comment on above: Performed By: #### Lora SHIRLEY UMICRO #### [facility] [address] [place] [address] Dr. Hans Muniz Sodium [Moles/Vol] 136 mmol/L Normal 136-145 [facility] Comment on above: Performed By: #### Lora SHIRLEY, UMICRO #### [facility] [address] [place] [address] [address] Hans Muniz Urea nitrogen [Mass/Vol] 9.0 mg/dL Normal 7.0-18.0 [facility] Comment on above: Performed By: #### Lora SHIRLEY UMICRO #### [facility] [address] [place] [address] Dr. Hans Muniz Urea nitrogen/Creatinine [Mass ratio] 12.0 mg/mg Normal [facility] Comment on above: Performed By: #### E FERN, UMICRO #### [facility] [address] [place] [address] Dr. Hans Muniz CULTURE URINEon 07-04-2022 CULTURE [...] S F Tetracycline >=16 R F Normal [facility] Comment on above: Performed By: #### E YANE SHIRLEY #### [facility] [address] [place] [address] Dr. Hans Muniz CBC AUTO DIFFon 07-02-2022 BASO # 0.0 103/ul Normal 0.0-0.1 [facility] Comment on above: Performed By: #### C BC #### [facility] [address] [place] [address] Dr. Hans Muniz Basophils/100 WBC (Bld) 0.3 % Normal 0.2-2.0 [facility] Comment on above: Performed By: #### C BC #### [facility] [address] [place] [address] Dr. Hans Muniz EO # 0.1 103/ul Normal 0.0-0.7 [facility] Comment on above: Performed By: #### C BC #### [facility] [address] [place] [address] Dr. Hans Muniz Eosinophils/100 WBC (Bld) 1.2 % Normal 0.9-7.0 [facility] Comment on above: Performed By: #### C BC #### [facility] [address] [place] [address] Dr. Hans Muniz Erythrocyte distribution width (RBC) [Ratio] 13.1 % Normal 11.0-15.0 [facility] Comment on above: Performed By: #### C BC #### [facility] [address] [place] [address] Dr. Hans Muniz Hematocrit (Bld) [Volume fraction] 37.6 % Normal 36.0-48.0 [facility] Comment on above: Performed By: #### C BC #### [facility] [address] [place] [address] Dr. Hans Muniz Hemoglobin (Bld) [Mass/Vol] 12.4 g/dL Normal 12.0-16.0 [facility] Comment on above: Performed By: #### C BC #### [facility] [address] [place] [address] Dr. Hans Muniz IG # 0.02 10e3/ul Normal 0.00-0.03 [facility] Comment on above: Performed By: #### C BC #### [facility] [address] [place] [address] Dr. Hans Muniz IG % 0.2 % Normal 0.0-0.5 [facility] Comment on above: Performed By: #### C BC #### [facility] [address] [place] [address] Dr. Hans Muniz LYMPH # 3.3 103/ul Normal 1.2-3.8 [facility] Comment on above: Performed By: #### C BC #### [facility] [address] [place] [address] Dr. Hans Muniz Lymphocytes/100 WBC (Bld) 34.8 % Normal 20.5-60.0 [facility] Comment on above: Performed By: #### C BC #### [facility] [address] [place] [address] Dr. Hans Muniz MANUAL DIFF REQ NO Normal [facility] [place] Comment on above: Performed By: #### C BC #### [facility] [address] [place] [address] Dr. Hans Muniz MCH (RBC) [Entitic mass] 27.8 pg Normal 26.7-34.0 [facility] Comment on above: Performed By: #### C BC #### [facility] [address] [place] [address] Dr. Hans Muniz MCHC (RBC) [Mass/Vol] 33.0 g/dL Normal 29.9-35.2 [facility] Comment on above: Performed By: #### C BC #### [facility] [address] [place] [address] [address] Hans Muniz MCV (RBC) [Entitic vol] 84.3 fL Normal 81.0-99.0 [facility] Comment on above: Performed By: #### C BC #### [facility] [address] [place] [address] Dr. Hans Muniz MONO # 0.6 103/ul Normal 0.3-0.8 [facility] Comment on above: Performed By: #### C BC #### [facility] [address] [place] [address] Dr. Hans Muniz Monocytes/100 WBC (Bld) 6.8 % Normal 1.7-12.0 [facility] Comment on above: Performed By: #### C BC #### [facility] [address] [place] [address] Dr. Hans Muniz NEUT # 5.3 103/ul Normal 1.4-6.5 [facility] Comment on above: Performed By: #### C BC #### [facility] [address] [place] [address] Dr. Hans Muniz Neutrophils/100 WBC (Bld) 56.7 % Normal 43.0-75.0 [facility] Comment on above: Performed By: #### C BC #### [facility] [address] [place] [address] Dr. Hans Muniz Platelet mean volume (Bld) [Entitic vol] 8.9 fL Critically low 9.5-13.5 [facility] Comment on above: Performed By: #### C BC #### [facility] [address] [place] [address] Dr. Hans Muniz PLT 286 103/ul Normal 150-450 [facility] Comment on above: Performed By: #### C BC #### [facility] [address] [place] [address] Dr. Hans Muniz RBC 4.46 106/ul Normal 4.20-5.40 [facility] Comment on above: Performed By: #### C BC #### [facility] [address] [place] [address] Dr. Hans Muniz WBC 9.4 103/ul Normal 4.0-11.0 [facility] Comment on above: Performed By: #### C BC #### [facility] [address] [place] [address] Dr. Hans Muniz ER URINE PROFILEon 2 Bilirubin Ql (U) Negative Normal NEGATIVE [facility] Comment on above: Performed By: #### Lora SHIRLEY UMICRO #### [facility] [address] [place] [address] Dr. Hans Muniz Clarity (U) CLEAR Normal CLEAR [facility] Comment on above: Performed By: #### Lora SHIRLEY UMICRO #### [facility] [address] [place] [address] Dr. Hans Muniz Color (U) LT. YELLOW Normal YELLOW [facility] Comment on above: Performed By: #### SHAWN RODRÍGUEZRO #### [facility] [address] [place] [address] Dr. Hans SCHAEFER A micrscopic examination will be performed if indicated. Normal [facility] Comment on above: Performed By: #### MAGALIS RODRÍGUEZICRO #### [facility] [address] [place] [address] Dr. Hans Muniz Glucose Ql (U) Negative Normal NEGATIVE [facility] Comment on above: Performed By: #### MAGALIS RODRÍGUEZICRO #### [facility] [address] [place] [address] Dr. Hans Muniz Hemoglobin Ql (U) Negative Normal NEGATIVE [facility] Comment on above: Performed By: #### Lora SHIRLEY UMICRO #### [facility] [address] [place] [address] Dr. Hans Muniz Ketones Ql (U) Negative Normal NEGATIVE [facility] Comment on above: Performed By: #### Lora SHIRLEY UMICRO #### [facility] [address] [place] [address] Dr. Hans Muniz LEUKOCYTES SMALL Abnormal NEGATIVE [facility] Comment on above: Performed By: #### E FERN, UMICRO #### [facility] [address] [address] [address] Hans Muniz Nitrite Ql (U) Negative Normal NEGATIVE [facility] Comment on above: Performed By: #### E FERN, UMICRO #### [facility] [address] [address] [address] Hans Muniz pH (U) 6.0 [pH] Normal 5-9 [facility] Comment on above: Performed By: #### E FERN, UMICRO #### [facility] [address] [place] [address] Dr. Hans Muniz SPEC GRAVITY 1.020 Normal 1.005-<=1.02 5 [facility] Comment on above: Performed By: #### Lora SHIRLEY, UMICRO #### [facility] [address] [place] [address] Dr. Hans Muniz UA PROTEIN Negative Normal NEGATIVE/ TRACE [facility] Comment on above: Performed By: #### Lora SHIRLEY, UMICRO #### [facility] [address] [place] [address] Dr. Hans Muniz UR MICRO IND INDICATED Normal [facility] Comment on above: Performed By: #### E FERN, UMICRO #### [facility] [address] [place] [address] Dr. Hans Muniz Urobilinogen Qn (U) 0.2 {Mary Ann'U}/dL Normal 0.2 - 1. 0 [facility] Comment on above: Performed By: #### E FERN, UMICRO #### [facility] [address] [place] [address] Dr. Hans Muniz PROF CHEM 8 (BAS METB)on Anion gap [Moles/Vol] 11.7 mmol/L Normal [facility] Comment on above: Performed By: #### G IPANEL #### [facility] [address] [place] [address] Dr. Hans Muniz Calcium [Mass/Vol] 8.2 mg/dL Critically low 8.5-10.1 [facility] Comment on above: Performed By: #### G IPANEL #### [facility] [address] [address] [address] Hans Muniz Chloride [Moles/Vol] 106 mmol/L Normal 98-107 [facility] Comment on above: Performed By: #### G IPANEL #### [facility] [address] [address] [address] Hans Muniz CO2 [Moles/Vol] 23.6 mmol/L Normal 21.0-32.0 [facility] Comment on above: Performed By: #### G IPANEL #### [facility] [address] [place] [address] Dr. Hans Muniz Creatinine [Mass/Vol] 0.83 mg/dL Normal 0.55-1.02 [facility] Comment on above: Performed By: #### G IPANEL #### [facility] [address] [place] [address] Dr. Hans Muniz EGFR-AF FIJIAN >60 Normal >=60 [facility] Comment on above: Performed By: #### G IPANEL #### [facility] [address] [place] [address] Dr. Hans Muniz EGFR-NON AF FIJIAN >60 Normal >=60 [facility] Comment on above: Performed By: #### G IPANEL #### [facility] [address] [place] [address] Dr. Hans Muniz Glucose [Mass/Vol] 96 mg/dL Normal 74-106 [facility] Comment on above: Performed By: #### G IPANEL #### [facility] [address] [place] [address] Dr. Hans Muniz Potassium [Moles/Vol] 3.3 mmol/L Critically low 3.5-5.1 [facility] Comment on above: Performed By: #### G IPANEL #### [facility] [address] [place] [address] Dr. Hans Muniz Sodium [Moles/Vol] 138 mmol/L Normal 136-145 [facility] Comment on above: Performed By: #### G IPANEL #### [facility] [address] [address] [address] Hans Muniz Urea nitrogen [Mass/Vol] 3.0 mg/dL Critically low 7.0-18.0 [facility] Comment on above: Performed By: #### G IPANEL #### [facility] [address] [place] [address] Dr. Hans Muniz Urea nitrogen/Creatinine [Mass ratio] 3.6 mg/mg Normal [facility] Comment on above: Performed By: #### G IPANEL #### [facility] [address] [place] [address] Dr. Hans Muniz URINE MICROSCOPIC ONLYon BACTERIA SMALL Abnormal NONE SEEN [facility] Comment on above: Performed By: #### E RUR, UMICRO #### [facility] [address] [place] [address] Dr. Hans Muniz Bacteria identified Cx Nom (U) INDICATED Normal [facility] Comment on above: Performed By: #### E RUR, UMICRO #### [facility] [address] [place] [address] Dr. Hans Muniz CAST NONE SEEN Normal NONE SEEN [facility] Comment on above: Performed By: #### E RUR, UMICRO #### [facility] [address] [place] [address] Dr. Hans Muniz Crystals LM Nom (Urine sed) NONE SEEN Normal NONE SEEN [facility] Comment on above: Performed By: #### E RUR, UMICRO #### [facility] [address] [place] [address] Dr. Hans Muniz Epithelial cells LM Ql (Urine sed) FEW Abnormal NONE SEEN /RARE [facility] Comment on above: Performed By: #### E RUR, UMICRO #### [facility] [address] [place] [address] Dr. Hans Muniz MUCOUS TRACE Abnormal NONE SEEN [facility] Comment on above: Performed By: #### E RUR, UMICRO #### [facility] [address] [place] [address] Dr. Hans Muniz RBC 2-5 Abnormal 0-2 [facility] Comment on above: Performed By: #### AYNE RODRÍGUEZ #### [facility] [address] [place] [address] Dr. Hans Muniz WBC 20-50 Abnormal NONE SEEN [facility] Comment on above: Performed By: #### YANE RODRÍGUEZ #### [facility] [address] [place] [address] Dr. Hans Muniz CBC AUTO DIFFon 06-30-2022 BASO # 0.1 103/ul Normal 0.0-0.1 [facility] Comment on above: Performed By: #### YANE RODRÍGUEZ #### [facility] [address] [place] [address] Dr. Hans Muniz Basophils/100 WBC (Bld) 0.7 % Normal 0.2-2.0 [facility] Comment on above: Performed By: #### YANE RODRÍGUEZ #### [facility] [address] [place] [address] Dr. Hans Muniz EO # 0.2 103/ul Normal 0.0-0.7 [facility] Comment on above: Performed By: #### YANE RODRÍGUEZ #### [facility] [address] [place] [address] Dr. Hans Muniz Eosinophils/100 WBC (Bld) 2.8 % Normal 0.9-7.0 [facility] Comment on above: Performed By: #### SHAWN RODRÍGUEZRO #### [facility] [address] [place] [address] Dr. Hans Muniz Erythrocyte distribution width (RBC) [Ratio] 13.0 % Normal 11.0-15.0 [facility] Comment on above: Performed By: #### SHAWN RODRÍGUEZRO #### [facility] [address] [place] [address] Dr. Hans Muniz Hematocrit (Bld) [Volume fraction] 40.8 % Normal 36.0-48.0 [facility] Comment on above: Performed By: #### Lora SHIRLEY UMICRO #### [facility] [address] [place] [address] Dr. Hans Muniz Hemoglobin (Bld) [Mass/Vol] 13.3 g/dL Normal 12.0-16.0 [facility] Comment on above: Performed By: #### Lora SHIRLEY, UMICRO #### [facility] [address] [place] [address] Dr. Hans Muniz IG # 0.03 10e3/ul Normal 0.00-0.03 [facility] Comment on above: Performed By: #### Lora SHIRLEY UMICRO #### [facility] [address] [place] [address] Dr. Hans Muniz IG % 0.4 % Normal 0.0-0.5 [facility] Comment on above: Performed By: #### Lora SHIRLEY UMICRO #### [facility] [address] [place] [address] Dr. Hans Muniz LYMPH # 3.1 103/ul Normal 1.2-3.8 [facility] Comment on above: Performed By: #### Lora SHIRLEY UMICRO #### [facility] [address] [place] [address] Dr. Hans Muniz Lymphocytes/100 WBC (Bld) 43.3 % Normal 20.5-60.0 [facility] Comment on above: Performed By: #### Lora SHIRLEY UMICRO #### [facility] [address] [place] [address] Dr. Hans Muniz MANUAL DIFF REQ NO Normal [facility] [place] Comment on above: Performed By: #### Lora SHIRLEY UMICRO #### [facility] [address] [place] [address] Dr. Hans Muniz MCH (RBC) [Entitic mass] 27.5 pg Normal 26.7-34.0 [facility] Comment on above: Performed By: #### Lora SHIRLEY, UMICRO #### [facility] [address] [place] [address] Dr. Hans Muniz MCHC (RBC) [Mass/Vol] 32.6 g/dL Normal 29.9-35.2 [facility] Comment on above: Performed By: #### SAHWN RODRÍGUEZRO #### [facility] [address] [place] [address] Dr. Hans Muniz MCV (RBC) [Entitic vol] 84.5 fL Normal 81.0-99.0 [facility] Comment on above: Performed By: #### SHAWN RODRÍGUEZRO #### [facility] [address] [place] [address] Dr. Hans Muniz MONO # 0.5 103/ul Normal 0.3-0.8 [facility] Comment on above: Performed By: #### SHAWN RODRÍGUEZRO #### [facility] [address] [place] [address] Dr. Hans Muniz Monocytes/100 WBC (Bld) 6.9 % Normal 1.7-12.0 [facility] Comment on above: Performed By: #### SHAWN RODRÍGUEZRO #### [facility] [address] [place] [address] Dr. Hans Muniz NEUT # 3.3 103/ul Normal 1.4-6.5 [facility] Comment on above: Performed By: #### SHAWN RODRÍGUEZRO #### [facility] [address] [place] [address] Dr. Hans Muniz Neutrophils/100 WBC (Bld) 45.9 % Normal 43.0-75.0 [facility] Comment on above: Performed By: #### SHAWN RODRÍGUEZRO #### [facility] [address] [place] [address] Dr. Hans Muniz Platelet mean volume (Bld) [Entitic vol] 8.9 fL Critically low 9.5-13.5 [facility] Comment on above: Performed By: #### SHAWN RODRÍGUEZRO #### [facility] [address] [place] [address] Dr. Hans Muniz PLT 291 103/ul Normal 150-450 [facility] Comment on above: Performed By: #### SHAWN RODRÍGUEZRO #### [facility] [address] [place], [place] [address] Dr. Hans Muniz RBC 4.83 106/ul Normal 4.20-5.40 [facility] Comment on above: Performed By: #### E SHAWN SHIRLEYRO #### [facility] [address] [place], [place] [address] Dr. Hans Muniz WBC 7.3 103/ul Normal 4.0-11.0 [facility] Comment on above: Performed By: #### E SHAWN SHIRLEYRO #### [facility] [address] [place], [place] [address] Dr. Hans Muniz PREG HCG QUALon 06-30-2022 , QUAL Negative Normal NEGATIVE [facility] [place] [facility] Comment on above: Performed By: #### G IPANEL #### [facility] [address] [address] [address] Hans Muniz Covid-19 PCR (CVDTBH)on 06-09 SARS-CoV-2 (COVID-19) RNA BALTAZAR+probe Ql (Unsp spec) Not detected Normal NOT DETECTED [facility] Comment on above: Result Comment: This test is not yet approved or cleared by the [place] FDA. When there are no FDA-approved or cleared tests available, and other criteria are met, FDA can make tests available under an emergency access mechanism called an Emergency Use Authorization (EUA). The EUA for this test is supported by the [place] of Health and Human Service's (HHS's) declaration [...] consistent with SARS-CoV-2. Performed By: #### C VDTBH #### [facility] [address] [address] [address] Hans Muniz US PELVIS AND TRANSVAGon [...] account for patient's symptoms. Electronically authenticated by: ILENE MERCADO Date: 2022-06-19 07:24 Normal [facility] PAP ACOG PANEL 2: 21 to 31on 01-03-2022 . . Normal [facility] Comment on above: Performed By: #### YANE RODRÍGUEZ #### [facility] [address] [place] [address] Dr. Hans Muniz Age Gdln ACOG Testing - Normal [facility] Comment on above: Performed By: #### YANE RODRÍGUEZ #### [facility] [address] [place] [address] Dr. Hans Muniz DIAGNOSIS: Comment Normal [facility] Comment on above: Result Comment: NEGA TIVE FOR INTRAEPITHELIAL LESION OR MALIGNANCY. Performed By: #### YANE RODRÍGUEZ #### [facility] [address] [place] [address] Dr. Hans Muniz Methodology: Comment Normal [facility] Comment on above: Result Comment: This liquid based ThinPrep(R) pap test was screened with the use of an image guided system. Performed By: #### YANE RODRÍGUEZ #### [facility] [address] [place] [address] Dr. Hans Muniz Note: Comment Normal [facility] Comment on above: Result Comment: The Pap smear is a screening test designed to aid in the detection of premalignant and malignant conditions of the uterine cervix. It is not a diagnostic procedure and should not be used as the sole means of detecting cervical cancer. Both false-positive and false-negative reports do occur. . Performed By: #### E FERN UMICRO #### [facility] [address] [place] [address] Dr. Hans Muniz Performed by: Comment Normal [facility] Comment on above: Result Comment: Marlene Silva, Voice Coach Performed By: #### E JENNIFERR, UMICRO #### [facility] [address] [place] [address] Dr. Hans Muniz Reflex Criteria: Comment Normal [facility] Comment on above: Result Comment: The HPV DNA reflex criteria were not met with this specimen result therefore, no HPV testing was performed. . Performed By: #### Lora SHIRLEY UMICRO #### [facility] [address] [place] [address] Dr. Hans Muniz Specimen adequacy: Comment Normal [facility] Comment on above: Result Comment: Sati sfactory for evaluation. Endocervical and/or squamous metaplastic cells (endocervical component) are present. Performed By: #### E FERN, UMICRO #### [facility] [address] [place] [address] Dr. Hans Muniz CHLAMYDIA/GONOCOCCUS BALTAZAR (SW AB/URINE/PAPon 12-31-2021 Chlamydia trachomatis, BALTAZAR Negative Normal Negative [facility] Comment on above: Performed By: #### G IPANEL #### [facility] [address] [place] [address] Dr. Hans Muniz Neisseria gonorrhoeae, BALTAZAR Negative Normal Negative [facility] Comment on above: Performed By: #### G IPANEL #### [facility] [address] [place] [address] Dr. Hans Muniz VAGINITIS/VAGINOSIS DNA PROB Ervin 12-30-2021 Ofe species Negative Normal Negative [facility] [place] Comment on above: Performed By: #### G IPANEL #### [facility] [address] [address] [address] Hans Muniz Gardnerella vaginalis Positive Abnormal Negative [facility] Comment on above: Performed By: #### G IPANEL #### [facility] [address] [address] [address] Hans Muniz Trichomonas vaginalis Negative Normal Negative [facility] Comment on above: Performed By: #### G IPANEL #### [facility] [address] [address] [address] Hans Muniz HEPATITIS PANEL, ACUTEon HBsAg Screen Negative Normal Negative [facility] Comment on above: Performed By: #### E RUR, UMICRO #### [facility] [address] [place] [address] Dr. Hans Muniz Hep A Ab, IgM Negative Normal Negative [facility] Comment on above: Performed By: #### E RUR, UMICRO #### [facility] [address] [place] [address] Dr. Hans Muniz Hep B Core Ab, IgM Negative Normal Negative [facility] Comment on above: Performed By: #### E RUR, UMICRO #### [facility] [address] [place] [address] Dr. Hans Muniz Hep C Virus Ab <0.1 Normal 0.0-0.9 [facility] Comment on above: Result Comment: Nega tive: < 0.8 Indeterminate: 0.8 - 0.9 Positive: > 0.9 . The CDC recommends that a positive HCV antibody result be followed up with a HCV Nucleic Acid Amplification test (722284). Effective February 06, 2022 Hepatitis Panel (4) will be made non-orderable. [facility] offers order code [id number] Acute Hepatitis. Performed By: #### E RUR, UMICRO #### [facility] [address] [place] [address] Dr. Hans Muniz HERPES SIMPLEX 1/2 IGGon HSV 1 IgG, Type Spec 37.40 index Critically high 0.00-0.90 [facility] Comment on above: Result Comment: Nega tive <0.91 Equivocal 0.91 - 1.09 Positive >1.09 Note: Negative indicates no antibodies detected to HSV-1. Equivocal may suggest early infection. If clinically appropriate, retest at later date. Positive indicates antibodies detected to HSV-1. Performed By: #### H SV IGG #### [facility] [address] [place] [address] Dr. Hans Muniz HSV 2 IgG Type Spec <0.91 Normal 0.00-0.90 [facility] Comment on above: Result Comment: Nega tive <0.91 Equivocal 0.91 - 1.09 Positive >1.09 Note: Negative indicates no HSV-2 antibodies detected. Positive indicates HSV-2 antibodies detected. Equivocal and low positive HSV-2 screens (Index 0.91-5.00) may be false positive and are reflexed to supplemental testing in accordance with CDC guidelines. Performed By: #### H SV IGG #### [facility] [address] [place] [address] Dr. Hans Muniz HERPES SIMPLEX 1/2 IGMon HSV, IgM I/II Combination <0.91 Normal 0.00-0.90 [facility] Comment on above: Result Comment: Nega tive <0.91 Equivocal 0.91 - 1.09 Positive >1.09 Performed By: #### H SVIGM #### [facility] [address] [place] [address] Dr. Hans Muniz HIV 1 AND 2 WITH REFLEXon HIV Screen 4th Generation wRfx Non-Reactive Normal Non Reactive [facility] Comment on above: Result Comment: HIV Negative HIV-1/HIV-2 antibodies and HIV-1 p24 antigen were NOT detected. There is no laboratory evidence of HIV infection. Performed By: #### G IPANEL #### [facility] [address] [place] [address] Dr. Hans Muniz RPR QUANTon 12-29-2021 Rapid Plasma Reagin, Quant Non-Reactive Normal NonRea<1:1 [facility] Comment on above: Performed By: #### E YANE SHIRLEY #### [facility] [address] [place] [address] Dr. Hans Muniz CBC AUTO DIFFon 11-23-2021 BASO # 0.0 103/ul Normal 0.0-0.1 [facility] Comment on above: Performed By: #### SHAWN RODRÍGUEZRO #### [facility] [address] [place] [address] Dr. Hans Muniz Basophils/100 WBC (Bld) 0.7 % Normal 0.2-2.0 [facility] Comment on above: Performed By: #### SHAWN RODRÍGUEZRO #### [facility] [address] [place] [address] Dr. Hans Muniz EO # 0.1 103/ul Normal 0.0-0.7 [facility] Comment on above: Performed By: #### SHAWN RODRÍGUEZRO #### [facility] [address] [place] [address] Dr. Hans Muniz Eosinophils/100 WBC (Bld) 1.2 % Normal 0.9-7.0 [facility] Comment on above: Performed By: #### SHAWN RODRÍGUEZRO #### [facility] [address] [place] [address] Dr. Hans Muniz Erythrocyte distribution width (RBC) [Ratio] 14.1 % Normal 11.0-15.0 [facility] Comment on above: Performed By: #### SHAWN RODRÍGUEZRO #### [facility] [address] [place] [address] Dr. Hans Muniz Hematocrit (Bld) [Volume fraction] 41.3 % Normal 36.0-48.0 [facility] Comment on above: Performed By: #### SHAWN RODRÍGUEZRO #### [facility] [address] [place] [address] Dr. Hans Muniz Hemoglobin (Bld) [Mass/Vol] 13.3 g/dL Normal 12.0-16.0 [facility] Comment on above: Performed By: #### SHAWN RODRÍGUEZRO #### [facility] [address] [place], [place] [id number] Dr. Hans Muniz IG # 0.01 10e3/ul Normal 0.00-0.03 [facility] Comment on above: Performed By: #### SHAWN RODRÍGUEZRO #### [facility] [address] [place] [address] Dr. Hans Muniz IG % 0.2 % Normal 0.0-0.5 [facility] Comment on above: Performed By: #### SHAWN RODRÍGUEZRO #### [facility] [address] [place] [address] Dr. Hans Muniz LYMPH # 1.1 103/ul Critically low 1.2-3.8 [facility] Comment on above: Performed By: #### SHAWN RODRÍGUEZRO #### [facility] [address] [place] [address] Dr. Hans Muniz Lymphocytes/100 WBC (Bld) 25.2 % Normal 20.5-60.0 [facility] Comment on above: Performed By: #### SHAWN RODRÍGUEZRO #### [facility] [address] [place] [address] Dr. Hans Muniz MANUAL DIFF REQ NO Normal [facility] [place] Comment on above: Performed By: #### SHAWN RODRÍGUEZRO #### [facility] [address] [place] [address] Dr. Hans Muniz MCH (RBC) [Entitic mass] 26.7 pg Normal 26.7-34.0 [facility] Comment on above: Performed By: #### SHAWN RODRÍGUEZRO #### [facility] [address] [place] [address] Dr. Hans Muniz MCHC (RBC) [Mass/Vol] 32.2 g/dL Normal 29.9-35.2 [facility] Comment on above: Performed By: #### MAGALIS RODRÍGUEZICRO #### [facility] [address] [place] [address] Dr. Hans Muniz MCV (RBC) [Entitic vol] 82.8 fL Normal 81.0-99.0 [facility] Comment on above: Performed By: #### YANE RODRÍGUEZ #### [facility] [address] [place] [address] Dr. Hans Muniz MONO # 0.4 103/ul Normal 0.3-0.8 [facility] Comment on above: Performed By: #### SHAWN RODRÍGUEZRO #### [facility] [address] [place] [address] Dr. Hans Muniz Monocytes/100 WBC (Bld) 9.3 % Normal 1.7-12.0 [facility] Comment on above: Performed By: #### SHAWN RODRÍGUEZRO #### [facility] [facility] [address] [place] [address] Dr. Hans Muniz NEUT # 2.7 103/ul Normal 1.4-6.5 [facility] Comment on above: Performed By: #### SHAWN RODRÍGUEZRO #### [facility] [address] [place] [address] Dr. Hans Muniz Neutrophils/100 WBC (Bld) 63.4 % Normal 43.0-75.0 [facility] Comment on above: Performed By: #### SHAWN RODRÍGUEZRO #### [facility] [address] [place] [address] Dr. Hans Muniz Platelet mean volume (Bld) [Entitic vol] 9.6 fL Normal 9.5-13.5 [facility] Comment on above: Performed By: #### SHAWN RODRÍGUEZRO #### [facility] [address] [place] [address] Dr. Hans Muniz PLT 252 103/ul Normal 150-450 [facility] Comment on above: Performed By: #### SHAWN RODRÍGUEZRO #### [facility] [address] [place] [address] Dr. Hans Muniz RBC 4.99 106/ul Normal 4.20-5.40 [facility] Comment on above: Performed By: #### SHAWN RODRÍGUEZRO #### [facility] [address] [place] [address] Dr. Hans Muniz WBC 4.2 103/ul Normal 4.0-11.0 [facility] Comment on above: Performed By: #### E SHAWN SHIRLEYRO #### [facility] [address] [place] [address] Dr. Hans Muniz GI PANEL (PCR)on 11-23-2021 Adenovirus F 40/41 Not detected Normal NOT DETECTED [facility] Comment on above: Performed By: #### G IPANEL #### [facility] [address] [place] [address] Dr. Hans Muniz Astrovirus Detected Abnormal NOT DETECTED [facility] Comment on above: Performed By: #### G IPANEL #### [facility] [address] [place] [address] Dr. Hans Muniz C. Diff toxin A/B Detected Critically abnormal NOT DETECTED [facility] Comment on above: Performed By: #### G IPANEL #### [facility] [address] [place] [address] Dr. Hans Muniz Campylobacter Not detected Normal NOT DETECTED [facility] Comment on above: Performed By: #### G IPANEL #### [facility] [address] [place] [address] Dr. Hans Muniz Cryptosporidium Not detected Normal NOT DETECTED [facility] Comment on above: Performed By: #### G IPANEL #### [facility] [address] [place] [address] Dr. Hans Muniz Cyclos. Cayetanensis Not detected Normal NOT DETECTED [facility] Comment on above: Performed By: #### G IPANEL #### [facility] [address] [place] [address] Dr. Hans Muniz E. Coli O157 Not Applicable Normal Not Applicable [facility] Comment on above: Performed By: #### G IPANEL #### [facility] [address] [place] [address] Dr. Hans Muniz E. histolytica Not detected Normal NOT DETECTED [facility] Comment on above: Performed By: #### G IPANEL #### [facility] [address] [place] [address] Dr. Hans Muniz EAEC Not detected Normal NOT DETECTED [facility] Comment on above: Performed By: #### G IPANEL #### [facility] [address] [place] [address] Dr. Hans Muniz EIEC Not detected Normal NOT DETECTED [facility] Comment on above: Performed By: #### G IPANEL #### [facility] [address] [place] [address] Dr. Hans Muniz EPEC Not detected Normal NOT DETECTED [facility] Comment on above: Performed By: #### G IPANEL #### [facility] [address] [place] [address] Dr. Hans Muniz ETEC Not detected Normal NOT DETECTED [facility] Comment on above: Performed By: #### G IPANEL #### [facility] [address] [place] [address] Dr. Hans Bueno Lamblia Not detected Normal NOT DETECTED [facility] Comment on above: Performed By: #### G IPANEL #### [facility] [address] [place] [address] Dr. Hans NORIEGA CONTROLS PASSED Normal [facility] Comment on above: Performed By: #### G IPANEL #### [facility] [address] [place] [address] Dr. Hans [facility] GI PANEL BACTERIA Normal [facility] Comment on above: Performed By: #### G IPANEL #### [facility] [address] [place] [address] Dr. Hans CORONADO ECOLI GI PANEL DIARRHEAGENIC E.COLI / SHIGELLA Normal [facility] Comment on above: Performed By: #### G IPANEL #### [facility] [address] [place] [address] Dr. Hans CORONADO INFO SEE BELOW [facility] Comment on above: Result Comment: EAEC - Enteroaggregative E. Coli EPEC- Enteropathogenic E. Coli ETEC- Enterotoxigenic E. Coli lt/st STEC- Shigella-like toxin-producing E. Coli stx1/stx2 EIEC- Shigella/Enteroinvasive E. Coli Performed By: #### G IPANEL #### [facility] [address] [address] [address] Hans CORONADO PARASITES GI PANEL PARASITES Normal [facility] Comment on above: Performed By: #### G IPANEL #### [facility] [address] [address] [address] Hans CORONADO VIRUS GI PANEL VIRUSES Normal [facility] Comment on above: Performed By: #### G IPANEL #### [facility] [address] [place] [address] Dr. Hans Muniz Norovirus GI/GII Not detected Normal NOT DETECTED [facility] Comment on above: Performed By: #### G IPANEL #### [facility] [address] [place] [address] Dr. Hans Muniz P. Shigelloides Not detected Normal NOT DETECTED [facility] Comment on above: Performed By: #### G IPANEL #### [facility] [address] [address] [address] Hans Muniz Rotavirus A Not detected Normal NOT DETECTED [facility] Comment on above: Performed By: #### G IPANEL #### [facility] [address] [place] [address] Dr. Hans Muniz Salmonella Not detected Normal NOT DETECTED [facility] Comment on above: Performed By: #### G IPANEL #### [facility] [address] [place] [address] Dr. Hans Muniz Sapovirus Not detected Normal NOT DETECTED [facility] Comment on above: Performed By: #### G IPANEL #### [facility] [address] [place] [address] Dr. Hans Muniz STEC Not detected Normal NOT DETECTED [facility] Comment on above: Performed By: #### G IPANEL #### [facility] [address] [place] [address] Dr. Hans Muniz Vibrio Not detected Normal NOT DETECTED [facility] Comment on above: Performed By: #### G IPANEL #### [facility] [address] [place] [address] Dr. Hans Muniz Vibrio Cholera Not detected Normal NOT DETECTED [facility] Comment on above: Performed By: #### G IPANEL #### [facility] [address] [place] [address] Dr. Hans Muniz Y. Enterocolitica Not detected Normal NOT DETECTED [facility] Comment on above: Performed By: #### G IPANEL #### [facility] [address] [place] [address] Dr. Hans Muniz PROF 14(COMP METB)on 022 Albumin [Mass/Vol] 3.6 g/dL Normal 3.5-5.0 [facility] Comment on above: Performed By: #### G IPANEL #### [facility] [address] [place] [address] Dr. Hans Muniz Albumin/Globulin [Mass ratio] 0.9 {ratio} Normal [facility] Comment on above: Performed By: #### G IPANEL #### [facility] [address] [place] [address] Dr. Hans Muniz ALP [Catalytic activity/Vol] 80 U/L Normal 38-126 [facility] Comment on above: Performed By: #### G IPANEL #### [facility] [address] [place] [address] Dr. Hans Muniz ALT [Catalytic activity/Vol] 41 U/L Normal 9-52 [facility] Comment on above: Performed By: #### G IPANEL #### [facility] [address] [place] [address] Dr. Hans Muniz Anion gap [Moles/Vol] 9.8 mmol/L Normal [facility] Comment on above: Performed By: #### G IPANEL #### [facility] [address] [place] [address] Dr. Hans Muniz AST [Catalytic activity/Vol] 34 U/L Normal 14-36 [facility] Comment on above: Performed By: #### G IPANEL #### [facility] [address] [place] [address] Dr. Hans Muniz Bilirubin [Mass/Vol] 0.3 mg/dL Normal 0.2-1.3 [facility] Comment on above: Performed By: #### G IPANEL #### [facility] [address] [place] [address] Dr. Hans Muniz Calcium [Mass/Vol] 8.8 mg/dL Normal 8.4-10.2 [facility] Comment on above: Performed By: #### G IPANEL #### [facility] [address] [place] [address] Dr. Hans Muniz Chloride [Moles/Vol] 105 mmol/L Normal 98-107 [facility] Comment on above: Performed By: #### G IPANEL #### [facility] [address] [place] [address] Dr. Hans Muniz CO2 [Moles/Vol] 24.2 mmol/L Normal 22.0-30.0 [facility] Comment on above: Performed By: #### G IPANEL #### [facility] [address] [place] [address] Dr. Hans Muniz Creatinine [Mass/Vol] 0.76 mg/dL Normal 0.52-1.04 [facility] Comment on above: Performed By: #### G IPANEL #### [facility] [address] [place] [address] Dr. Hans Muniz EGFR-AF FIJIAN >60 Normal >=60 [facility] Comment on above: Performed By: #### G IPANEL #### [facility] [address] [place] [address] Dr. Hans Muniz EGFR-NON AF FIJIAN >60 Normal >=60 [facility] Comment on above: Performed By: #### G IPANEL #### [facility] [address] [place] [address] Dr. Hans Muniz Globulin (S) [Mass/Vol] 4.1 g/dL Normal [facility] Comment on above: Performed By: #### G IPANEL #### [facility] [address] [place] [address] Dr. Hans Muniz Glucose [Mass/Vol] 99 mg/dL Normal 74-106 [facility] Comment on above: Performed By: #### G IPANEL #### [facility] [address] [address] [address] Hans Muniz Potassium [Moles/Vol] 3.0 mmol/L Critically low 3.4-5.0 [facility] Comment on above: Performed By: #### G IPANEL #### [facility] [address] [address] [address] Hans Muniz Protein [Mass/Vol] 7.7 g/dL Normal 6.1-8.2 [facility] Comment on above: Performed By: #### G IPANEL #### [facility] [address] [address] [address] Hans Muniz Sodium [Moles/Vol] 135 mmol/L Critically low 137-145 [facility] Comment on above: Performed By: #### G IPANEL #### [facility] [address] [place] [address] Dr. Hans Muniz Urea nitrogen [Mass/Vol] 10.0 mg/dL Normal 7.0-17.0 [facility] Comment on above: Performed By: #### G IPANEL #### [facility] [address] [place] [address] Dr. Hans Muniz Urea nitrogen/Creatinine [Mass ratio] 13.2 mg/mg Normal [facility] Comment on above: Performed By: #### G IPANEL #### [facility] [address] [place] [address] Dr. Hans Muniz XR CHEST 2 Von 11-16-2021 XR CHEST 2 V This study was read during a downtime in the [employer] PACS system. The actual time dictated and [...] by: MELINDA LANE Date: 2021-11-16 10:10 Normal [facility] XR RIBS RT NO CH 2Von 2021 XR RIBS RT NO CH 2V EXAMINATION: XR RIBS RT NO CH 2V HISTORY: Pleuritic pain COMPARISON: No relevant comparison available. FINDINGS: RIBS: Normal. No significant arthropathy or acute abnormality. LUNGS: No appreciable pneumothorax or pleural thickening. OTHER: Negative. IMPRESSION: 1. No appreciable right rib abnormality. Electronically authenticated by: ILENE MERCADO Date: 2021-11-16 06:53 Normal [facility] MG MAMM DIAGNOSTIC 3D POLINA CA Don 11-15-2021 MG MAMM DIAGNOSTIC 3D POLINA CAD Patient: BRIAN SULLIVAN Exam Date: 11/15/2021 : 1995 Gender:F Ordering : DR SHAUN AVILES Admission #: [id number] Family : Order #: [id number] CLICK HERE TO VIEW EXAM RADIOLOGY REPORT [...] ovarian cancer at age 52. LOCATION: [facility] BREAST COMPOSITION: Extremely dense, which lowers the [...] M.D. on 11/15/2021 at 12:01 Normal [facility] US BREAST POLINA LIMITEDon 02-0 US BREAST POLINA LIMITED Patient: BRIAN SULLIVAN Exam Date: 11/15/2021 : 1995 Gender:F Ordering : DR SHAUN AVILES Admission #: [id number] Family : Order #: [id number] CLICK HERE TO VIEW EXAM RADIOLOGY REPORT [...] ovarian cancer at age 52. LOCATION: [facility] BREAST COMPOSITION: Extremely dense, which lowers the [...] Mercado M.D. on 11/15/2021 at 12:01 Normal [facility] FERRITINon 09-29-2021 Ferritin [Mass/Vol] 12 ng/mL Critically low 15-150 [facility] Comment on above: Performed By: #### G IPANEL #### [facility] [address] [address] [address] Hans Muniz VIT D 25-OH [employer]ABC[employer]on 2020 Vitamin D, 25-Hydroxy 29.8 ng/mL Critically low 30.0-100.0 [facility] Comment on above: Result Comment: Adeel min D deficiency has been defined by the [place] of [employer] and an Endocrine Society practice guideline as a level of serum 25-OH vitamin D less than 20 ng/mL (1,2). The Endocrine Society went on to further define vitamin D insufficiency as a level between 21 and 29 ng/mL (2). 1. IOM ([place] of [employer]). 2010. Dietary reference intakes for calcium and D. [place]: The National Academies Press. 2. Monique JARAMILLO, [place], Matt TAYLOR, et al. Evaluation, treatment, and prevention of vitamin D deficiency: an Endocrine Society clinical practice guideline. JCEM. 2010; 96(7):1911-30. Performed By: #### G IPANEL #### [facility] [address] [place] [address] Dr. Hans Muniz CBC AUTO DIFFon 09-28-2021 BASO # 0.0 103/ul Normal 0.0-0.1 [facility] Comment on above: Performed By: #### G IPANEL #### [facility] [address] [address] [address] Hans Muniz Basophils/100 WBC (Bld) 0.4 % Normal 0.2-2.0 [facility] Comment on above: Performed By: #### G IPANEL #### [facility] [address] [place] [address] Dr. Hans Muniz EO # 0.2 103/ul Normal 0.0-0.7 [facility] Comment on above: Performed By: #### G IPANEL #### [facility] [address] [place] [address] Dr. Hans Muniz Eosinophils/100 WBC (Bld) 3.1 % Normal 0.9-7.0 [facility] Comment on above: Performed By: #### G IPANEL #### [facility] [address] [place] [address] Dr. Hans Muniz Erythrocyte distribution width (RBC) [Ratio] 14.3 % Normal 11.0-15.0 [facility] Comment on above: Performed By: #### G IPANEL #### [facility] [address] [place] [address] Dr. Hans Muniz Hematocrit (Bld) [Volume fraction] 38.3 % Normal 36.0-48.0 [facility] Comment on above: Performed By: #### G IPANEL #### [facility] [address] [place] [address] Dr. Hans Muniz Hemoglobin (Bld) [Mass/Vol] 12.0 g/dL Normal 12.0-16.0 [facility] Comment on above: Performed By: #### G IPANEL #### [facility] [address] [place] [address] Dr. Hans Muniz IG # 0.02 10e3/ul Normal 0.00-0.03 [facility] Comment on above: Performed By: #### G IPANEL #### [facility] [address] [place] [address] Dr. Hans Muniz IG % 0.3 % Normal 0.0-0.5 [facility] Comment on above: Performed By: #### G IPANEL #### [facility] [address] [place] [address] Dr. Hans Muniz LYMPH # 1.9 103/ul Normal 1.2-3.8 [facility] Comment on above: Performed By: #### G IPANEL #### [facility] [address] [address] [address] Hans Muniz Lymphocytes/100 WBC (Bld) 27.4 % Normal 20.5-60.0 [facility] Comment on above: Performed By: #### G IPANEL #### [facility] [address] [address] [address] Hans Muniz MANUAL DIFF REQ NO Normal [facility] Comment on above: Performed By: #### G IPANEL #### [facility] [address] [address] [address] Hans Muniz MCH (RBC) [Entitic mass] 26.2 pg Critically low 26.7-34.0 [facility] Comment on above: Performed By: #### G IPANEL #### [facility] [address] [place] [address] Dr. Hans Muniz MCHC (RBC) [Mass/Vol] 31.3 g/dL Normal 29.9-35.2 [facility] Comment on above: Performed By: #### G IPANEL #### [facility] [address] [place] [address] Dr. Hans Muniz MCV (RBC) [Entitic vol] 83.6 fL Normal 81.0-99.0 [facility] Comment on above: Performed By: #### G IPANEL #### [facility] [address] [place] [address] Dr. Hans Muniz MONO # 0.3 103/ul Normal 0.3-0.8 [facility] Comment on above: Performed By: #### G IPANEL #### [facility] [address] [address] [address] Hans Muniz Monocytes/100 WBC (Bld) 4.4 % Normal 1.7-12.0 [facility] Comment on above: Performed By: #### G IPANEL #### [facility] [address] [address] [address] Hans Muniz NEUT # 4.3 103/ul Normal 1.4-6.5 [facility] Comment on above: Performed By: #### G IPANEL #### [facility] [address] [address] [address] Hans Muniz Neutrophils/100 WBC (Bld) 64.4 % Normal 43.0-75.0 [facility] Comment on above: Performed By: #### G IPANEL #### [facility] [address] [address] [address] Hans Muniz Platelet mean volume (Bld) [Entitic vol] 9.5 fL Normal 9.5-13.5 [facility] Comment on above: Performed By: #### G IPANEL #### [facility] [address] [address] [address] Hans Muniz PLT 296 103/ul Normal 150-450 [facility] Comment on above: Performed By: #### G IPANEL #### [facility] [address] [address] [address] Hans Muniz RBC 4.58 106/ul Normal 4.20-5.40 [facility] Comment on above: Performed By: #### G IPANEL #### [facility] [address] [address] [address] Hans Muniz WBC 6.8 103/ul Normal 4.0-11.0 [facility] Comment on above: Performed By: #### G IPANEL #### [facility] [address] [address] [address] Hans Muniz FREE T4on 09-28-2021 Free T4 [Mass/Vol] 1.04 ng/dL Normal 0.78-2.19 [facility] Comment on above: Performed By: #### F T4 #### [facility] [address] [address] [address] Hans Muniz GLYCOHEMOGLOBIN A1Con 2020 ADA RECOMMENDATION ADA THERAPEUTIC TARGET 6.0 - 7.0 ACTION SUGGESTED > 7.0 Normal [facility] Comment on above: Performed By: #### G IPANEL #### [facility] [address] [address] [address] Hans Muniz Glucose [Mass/Vol] 91 mg/dL Normal [facility] Comment on above: Performed By: #### G IPANEL #### [facility] [address] [address] [address] Hans Muniz HbA1c (Bld) [Mass fraction] 4.8 % Normal <=6.0 [facility] Comment on above: Performed By: #### G IPANEL #### [facility] [address] [address] [address] Hans Muniz LIPID PROFILEon 09-28-2021 CHOL-HDL RATIO NORM SEE BELOW Normal [facility] Comment on above: Result Comment: 3.3 - 4.4 LOW RISK 4.4 - 7.1 AVERAGE RISK 7.1 - 11.0 MODERATE RISK >11.0 HIGH RISK Performed By: #### L IPID, TSH, CMP #### [facility] [address] [address] [address] Hans Muniz Cholesterol [Mass/Vol] 156 mg/dL Normal <=200 [facility] Comment on above: Performed By: #### L IPID, TSH, CMP #### [facility] [address] [address] [address] Hans Muniz Cholesterol in HDL [Mass/Vol] 46 mg/dL Normal [facility] Comment on above: Performed By: #### L IPID, TSH, CMP #### [facility] [address] [address] [address] Hans Muniz Cholesterol in LDL [Mass/Vol] 92.0 mg/dL Normal [facility] Comment on above: Performed By: #### L IPID, TSH, CMP #### [facility] [address] [address] [address] Hans Muniz Cholesterol.total/Corina sterol in HDL [Mass ratio] 3.4 {ratio} Normal [facility] Comment on above: Performed By: #### L IPID, TSH, CMP #### [facility] [address] [address] [address] Hans Muniz HDL NORMAL > or = 60 mg/dl - LO W CARDIOVASCULAR RISK <40 mg/dl - HIGH CARDIOVASCULAR RISK Normal [facility] Comment on above: Performed By: #### L IPID, TSH, CMP #### [facility] [address] [address] [address] Hans Muniz LDL CALC NORMAL SEE BELOW Normal [facility] Comment on above: Result Comment: <100 mg/dl OPTIMAL 100 - 129 mg/dl NEAR OR ABOVE OPTIMAL 130 - 159 mg/dl BORDERLINE HIGH 160 - 189 mg/dl HIGH >190 mg/dl VERY HIGH Performed By: #### L IPID, TSH, CMP #### [facility] [address] [address] [address] Hans Muniz Triglyceride [Mass/Vol] 90 mg/dL Normal <=150 [facility] Comment on above: Performed By: #### L IPID, TSH, CMP #### [facility] [address] [place] [address] Dr. Hans Muniz VLDL CALC 18.0 mg/dL Normal [facility] Comment on above: Performed By: #### L IPID, TSH, CMP #### [facility] [address] [place] [address] Dr. Hans Muniz PROF 14(COMP METB)on 021 Albumin [Mass/Vol] 3.3 g/dL Critically low 3.5-5.0 [facility] Comment on above: Performed By: #### YANE RODRÍGUEZ #### [facility] [address] [place] [address] Dr. Hans Muniz Albumin/Globulin [Mass ratio] 0.8 {ratio} Normal [facility] Comment on above: Performed By: #### SHAWN RODRÍGUEZRO #### [facility] [address] [place] [address] Dr. Hans Muniz ALP [Catalytic activity/Vol] 72 U/L Normal 38-126 [facility] Comment on above: Performed By: #### SHAWN RODRÍGUEZRO #### [facility] [address] [place] [address] Dr. Hans Muniz ALT [Catalytic activity/Vol] 41 U/L Normal 9-52 [facility] Comment on above: Performed By: #### SHAWN RODRÍGUEZRO #### [facility] [address] [address] [address] Hans Muniz Anion gap [Moles/Vol] 11.5 mmol/L Normal [facility] Comment on above: Performed By: #### E RUR, UMICRO #### [facility] [address] [place] [address] Dr. Hans Muniz AST [Catalytic activity/Vol] 22 U/L Normal 14-36 [facility] Comment on above: Performed By: #### E RUR, UMICRO #### [facility] [address] [place] [address] Dr. Hans Muniz Bilirubin [Mass/Vol] 0.6 mg/dL Normal 0.2-1.3 [facility] Comment on above: Performed By: #### E FERN, UMICRO #### [facility] [address] [place] [address] Dr. Hans Muniz Calcium [Mass/Vol] 8.7 mg/dL Normal 8.4-10.2 [facility] Comment on above: Performed By: #### E FERN, UMICRO #### [facility] [address] [place] [address] Dr. Hans Muniz Chloride [Moles/Vol] 105 mmol/L Normal 98-107 [facility] Comment on above: Performed By: #### E FERN, UMICRO #### [facility] [address] [place] [address] Dr. Hans Muniz CO2 [Moles/Vol] 25.0 mmol/L Normal 22.0-30.0 [facility] Comment on above: Performed By: #### E RUR, UMICRO #### [facility] [address] [place] [address] Dr. Hans Muniz Creatinine [Mass/Vol] 0.68 mg/dL Normal 0.52-1.04 [facility] Comment on above: Performed By: #### E RUR, UMICRO #### [facility] [address] [place] [address] Dr. Hans Muniz EGFR-AF FIJIAN >60 Normal >=60 [facility] Comment on above: Performed By: #### SHAWN RODRÍGUEZRO #### [facility] [address] [place] [address] Dr. Hans Muniz EGFR-NON AF FIJIAN >60 Normal >=60 [facility] Comment on above: Performed By: #### SHAWN RODRÍGUEZRO #### [facility] [address] [place] [address] Dr. Hans Muniz Globulin (S) [Mass/Vol] 3.9 g/dL Normal [facility] Comment on above: Performed By: #### SHAWN RODRÍGUEZRO #### [facility] [address] [place] [address] Dr. Hans Muniz Glucose [Mass/Vol] 80 mg/dL Normal 74-106 [facility] Comment on above: Performed By: #### SHAWN RODRÍGUEZRO #### [facility] [address] [place] [address] Dr. Hans Muniz Potassium [Moles/Vol] 3.5 mmol/L Normal 3.4-5.0 [facility] Comment on above: Performed By: #### YANE RODRÍGUEZ #### [facility] [address] [place] [address] Dr. Hans Muniz Protein [Mass/Vol] 7.2 g/dL Normal 6.1-8.2 [facility] Comment on above: Performed By: #### SHAWN RODRÍGUEZRO #### [facility] [address] [place] [address] Dr. Hans Muniz Sodium [Moles/Vol] 138 mmol/L Normal 137-145 [facility] Comment on above: Performed By: #### SHAWN RODRÍGUEZRO #### [facility] [address] [place] [address] Dr. Hans Muniz Urea nitrogen [Mass/Vol] 6.0 mg/dL Critically low 7.0-17.0 [facility] Comment on above: Performed By: #### SHAWN RODRÍGUEZRO #### [facility] [address] [place] [address] Dr. Hans Muniz Urea nitrogen/Creatinine [Mass ratio] 8.8 mg/mg Normal [facility] Comment on above: Performed By: #### YANE RODRÍGUEZ #### [facility] [address] [place] [address] Dr. Hans Muniz TSHon 09-28-2021 TSH 0.629 uIU/mL Normal 0.470-4.680 [facility] Comment on above: Performed By: #### YANE RODRÍGUEZ #### [facility] [address] [place] [address] Dr. Hans Muniz TSH RANGE SEE BELOW Normal [facility] Comment on above: Result Comment: <0.3 4 UIU/ml HYPERTHYROID 0.34-5.60 UIU/ml EUTHYROID >5.60 UIU/ml HYPOTHYROID Performed By: #### YANE RODRÍGUEZ #### [facility] [address] [place] [address] Dr. Hans Muniz Vital Signs Date Time Vital Sign Value Performing Clinician Facility 01-05-2025 14:03-0400 Body mass index (BMI) [Ratio] 23.99 kg/m2 [employer] Work Phone: [facility] 01-05-2025 14:03-0400 Body weight 61.42 kg [employer] Work Phone: [facility] 01-05-2025 14:03-0400 Diastolic blood pressure 70 mm[Hg] [employer] Work Phone: [facility] 01-05-2025 14:03-0400 Systolic blood pressure 110 mm[Hg] [employer] Work Phone: [facility] 12-23-2024 12:37-0400 Body height 160.02 cm [facility] 12-23-2024 12:37-0400 Body mass index (BMI) [Ratio] 24 kg/m2 [facility] 12-23-2024 12:37-0400 Body weight 61.68 kg [facility] 12-23-2024 12:37-0400 Diastolic blood pressure 62 mm[Hg] [facility] 12-23-2024 12:37-0400 Heart rate 74 /min [facility] 12-23-2024 12:37-0400 Respiratory rate 18 /min [facility] 12-23-2024 12:37-0400 SaO2% (BldA) [Mass fraction] 98 % [facility] 12-23-2024 12:37-0400 Systolic blood pressure 108 mm[Hg] [facility] 11-11-2024 13:56-0500 Body height 160.02 cm [facility] 11-11-2024 13:56-0500 Body mass index (BMI) [Ratio] 23.7 kg/m2 [facility] 11-11-2024 13:56-0500 Body weight 60.78 kg [facility] 11-11-2024 13:56-0500 Diastolic blood pressure 70 mm[Hg] [facility] 11-11-2024 13:56-0500 Heart rate 83 /min [facility] 11-11-2024 13:56-0500 Systolic blood pressure 118 mm[Hg] [facility] 08-26-2024 13:47-0500 Body height 160.02 cm Shaun Aviles DO Work Phone: [facility] 08-26-2024 13:47-0500 Body mass index (BMI) [Ratio] 23.9 kg/m2 Shaun Monzons DO Work Phone: [facility] 08-26-2024 13:47-0500 Body weight 61.23 kg Shaun Monzons DO Work Phone: [facility] 08-26-2024 13:47-0500 Diastolic blood pressure 64 mm[Hg] Shaun Monzons DO Work Phone: [facility] 08-26-2024 13:47-0500 Heart rate 72 /min Shaun Monzons DO Work Phone: [facility] 08-26-2024 13:47-0500 Respiratory rate 18 /min Shaun Aviles DO Work Phone: [facility] 08-26-2024 13:47-0500 SaO2% (BldA) [Mass fraction] 97 % Shaun Aviles DO Work Phone: [facility] 08-26-2024 13:47-0500 Systolic blood pressure 106 mm[Hg] Shaun Aviles DO Work Phone: [facility] 07-31-2024 13:02-0400 Body mass index (BMI) [Ratio] 23.2 kg/m2 DO Shaun Aviles Work Phone: [facility] 07-31-2024 13:02-0400 Diastolic blood pressure 77 mm[Hg] DO Shaun Aviles Work Phone: [facility] 07-31-2024 13:02-0400 Heart rate 83 /min DO Shaun Aviles Work Phone: [facility] 07-31-2024 13:02-0400 Systolic blood pressure 110 mm[Hg] DO Shaun Aviles Work Phone: [facility] 07-31-2024 12:58-0400 Body height 160.02 cm DO Shaun Aviles Work Phone: [facility] 07-31-2024 12:58-0400 Body weight 59.42 kg DO Shaun Aviles Work Phone: [facility] 07-10-2024 15:49-0400 Body temperature 98.01 [degF] Cassandra Gonzalez PA Work Phone: [facility] 07-10-2024 15:49-0400 Diastolic blood pressure 80 mm[Hg] Cassandra Sandovalmer PA Work Phone: [facility] 07-10-2024 15:49-0400 Heart rate 75 /min Cassandra Gonzalez PA Work Phone: [facility] 07-10-2024 15:49-0400 SaO2% (BldA) [Mass fraction] 98 % Cassandra GEIGER Work Phone: [facility] 07-10-2024 15:49-0400 Systolic blood pressure 110 mm[Hg] Cassandra GEIGER Work Phone: [facility] 07-01-2024 14:50-0400 Diastolic blood pressure 63 mm[Hg] DO Shaun Kuns Work Phone: [facility] 07-01-2024 14:50-0400 Heart rate 56 /min DO Shaun Kuns Work Phone: [facility] 07-01-2024 14:50-0400 Respiratory rate 16 /min DO Shaun Kuns Work Phone: [facility] 07-01-2024 14:50-0400 SaO2% (BldA) [Mass fraction] 99 % DO Shaun Kuns Work Phone: [facility] 07-01-2024 14:50-0400 Systolic blood pressure 109 mm[Hg] DO Shaun Kuns Work Phone: [facility] 07-01-2024 12:47-0400 Body height 160.02 cm DO Shaun Kuns Work Phone: [facility] 07-01-2024 12:47-0400 Body weight 61.23 kg DO Shaun Kuns Work Phone: [facility] 06-16-2024 13:33-0400 Body height 160.02 cm [facility] 06-16-2024 13:33-0400 Body mass index (BMI) [Ratio] 23.6 kg/m2 [facility] 06-16-2024 13:33-0400 Body weight 60.32 kg [facility] 06-16-2024 13:33-0400 Diastolic blood pressure 69 mm[Hg] [facility] 06-16-2024 13:33-0400 Heart rate 79 /min [facility] 06-16-2024 13:33-0400 Systolic blood pressure 105 mm[Hg] [facility] 04-15-2024 14:04-0400 Body height 160.02 cm DO Shaun Kuns Work Phone: [facility] 04-15-2024 14:04-0400 Body mass index (BMI) [Ratio] 23.9 kg/m2 DO Shaun Kuns Work Phone: [facility] 04-15-2024 14:04-0400 Body weight 61.23 kg DO Shaun Kuns Work Phone: [facility] 01-29-2024 12:58-0400 Body height 160.02 cm DO Shaun Kuns Work Phone: [facility] 01-29-2024 12:58-0400 Body mass index (BMI) [Ratio] 26.2 kg/m2 DO Shaun Kuns Work Phone: [facility] 01-29-2024 12:58-0400 Body weight 67.13 kg DO Shaun Kuns Work Phone: [facility] 01-29-2024 12:58-0400 Diastolic blood pressure 70 mm[Hg] DO Shaun Kuns Work Phone: [facility] 01-29-2024 12:58-0400 Heart rate 89 /min DO Shaun Kuns Work Phone: [facility] 01-29-2024 12:58-0400 Respiratory rate 16 /min DO Shaun Kuns Work Phone: [facility] 01-29-2024 12:58-0400 SaO2% (BldA) [Mass fraction] 99 % DO Shaun Kuns Work Phone: [facility] 01-29-2024 12:58-0400 Systolic blood pressure 100 mm[Hg] DO Shaun Kuns Work Phone: [facility] 10-16-2023 13:20-0500 Body height 160.02 cm Lj Stanton Other [facility] 10-16-2023 13:20-0500 Body mass index (BMI) [Ratio] 25.68 kg/m2 Lj Artemprincess Other [facility] [employer] Other 10-16-2023 13:20-0500 Body weight 65.77 kg Lj Scmoyner Other [facility] 08-22-2023 10:06-0500 Diastolic blood pressure 62 mm[Hg] DO Shaun Kuns Work Phone: [facility] 08-22-2023 10:06-0500 Heart rate 67 /min DO Shaun Kuns Work Phone: [facility] 08-22-2023 10:06-0500 Respiratory rate 16 /min DO Shaun Nicoláss Work Phone: [facility] 08-22-2023 10:06-0500 SaO2% (BldA) [Mass fraction] 99 % DO Shaun Nicoláss Work Phone: [facility] 08-22-2023 10:06-0500 Systolic blood pressure 102 mm[Hg] DO Shaun Kuns Work Phone: [facility] 08-22-2023 08:02-0500 Body height 162.56 cm DO Shaun Kuns Work Phone: [facility] 08-22-2023 08:02-0500 Body weight 64.41 kg DO Shaun Kuns Work Phone: [facility] 07-26-2023 13:00-0400 Body height 160.02 cm Shaun Nicoláss Other [facility] [employer] Other 07-26-2023 13:00-0400 Body mass index (BMI) [Ratio] 25.68 kg/m2 Shaun Nicoláss Other [facility] [employer] Other 07-26-2023 13:00-0400 Body weight 65.77 kg Shaunjairon Monzonbere Other [employer] Other 07-26-2023 13:00-0400 Diastolic blood pressure 64 mm[Hg] Shaun Traci Other [employer] [facility] Other 07-26-2023 13:00-0400 Respiratory rate 18 /min Shaun Traci Other [employer] [facility] Other 07-26-2023 13:00-0400 SaO2% (BldA) [Mass fraction] 97 % Shaun Traic Other [employer] [employer] [facility] Other 07-26-2023 13:00-0400 Systolic blood pressure 100 mm[Hg] Shaun Aviles Other [employer] [facility] Other 07-09-2023 13:20-0400 Body height 160.02 cm Lj Stanton Other [employer] [facility] Other 07-09-2023 13:20-0400 Body mass index (BMI) [Ratio] 25.68 kg/m2 Lj Stanton Other [employer] Other 07-09-2023 13:20-0400 Body weight 65.77 kg Lj Stanton Other [employer] Other 07-09-2023 13:20-0400 Diastolic blood pressure 76 mm[Hg] Lj Stanton Other [employer] Other 07-09-2023 13:20-0400 Systolic blood pressure 103 mm[Hg] jL Stanton Other [employer] Other 07-01-2023 20:50-0400 Diastolic blood pressure 62 mm[Hg] [facility] 07-01-2023 20:50-0400 Heart rate 86 /min [facility] 07-01-2023 20:50-0400 Mean blood pressure 73 mm[Hg] [facility] 07-01-2023 20:50-0400 Respiratory rate 17 /min [facility] 07-01-2023 20:50-0400 SaO2% (BldA) [Mass fraction] 95 % [facility] 07-01-2023 20:50-0400 Systolic blood pressure 95 mm[Hg] [facility] 07-01-2023 19:58-0400 Heart rate 87 /min [facility] 07-01-2023 19:58-0400 Respiratory rate 16 /min [facility] 07-01-2023 19:58-0400 SaO2% (BldA) [Mass fraction] 95 % [facility] 07-01-2023 19:07-0400 Heart rate 89 /min [facility] 07-01-2023 19:07-0400 Respiratory rate 18 /min [facility] 07-01-2023 19:07-0400 SaO2% (BldA) [Mass fraction] 98 % [facility] 07-01-2023 17:52-0400 Body temperature 98.24 [degF] [facility] 07-01-2023 17:52-0400 Diastolic blood pressure 86 mm[Hg] [facility] 07-01-2023 17:52-0400 Mean blood pressure 97 mm[Hg] [facility] 07-01-2023 17:52-0400 Systolic blood pressure 120 mm[Hg] [facility] 04-05-2023 11:00-0400 Body height 160.02 cm Rell Marinelli Other [employer] Other 04-05-2023 11:00-0400 Body mass index (BMI) [Ratio] 27.81 kg/m2 Rell Marinelli Other [employer] [facility] [employer] [facility] Other 04-05-2023 11:00-0400 Body weight 71.22 kg Rell Marinelli Other [employer] [facility] Other 03-06-2023 13:45-0400 Body height 160.02 cm Shaun Aviles Other [employer] Other 03-06-2023 13:45-0400 Body mass index (BMI) [Ratio] 27.88 kg/m2 Shaun Aviles Other [employer] [facility] Other 03-06-2023 13:45-0400 Body weight 71.4 kg Shaun Aviles Other [employer] [facility] Other 03-06-2023 13:45-0400 Diastolic blood pressure 60 mm[Hg] Shaun Aviles Other [employer] Other 03-06-2023 13:45-0400 Respiratory rate 16 /min Shaun Aviles Other [employer] [facility] Other 03-06-2023 13:45-0400 SaO2% (BldA) [Mass fraction] 98 % Shaun Aviles Other [employer] Other 03-06-2023 13:45-0400 Systolic blood pressure 114 mm[Hg] Shaun Aviles Other [employer] Other 08-21-2022 13:30-0500 Body height 160.02 cm Shaun Aviles Other [employer] Other 08-21-2022 13:30-0500 Body mass index (BMI) [Ratio] 25.15 kg/m2 Shaun Traci Other [employer] Other 08-21-2022 13:30-0500 Body weight 64.41 kg Shaun Aviles Other [employer] [facility] Other 08-21-2022 13:30-0500 Diastolic blood pressure 60 mm[Hg] Shaun Aviles Other [employer] Other 08-21-2022 13:30-0500 Respiratory rate 16 /min Shaun Aviles Other [employer] Other 08-21-2022 13:30-0500 SaO2% (BldA) [Mass fraction] 99 % Shaun Monzonbere Other [employer] Other 08-21-2022 13:30-0500 Systolic blood pressure 112 mm[Hg] Shaunjairon Aviles Other [employer] Other 05-03-2022 13:00-0400 Body temperature 98.2 [degF] DO Denys Itzkowitz Work Phone: [facility] 05-03-2022 13:00-0400 Diastolic blood pressure 71 mm[Hg] DO Denys Itzkowitz Work Phone: [facility] 05-03-2022 13:00-0400 Heart rate 96 /min DO Denys Itzkowitz Work Phone: [facility] 05-03-2022 13:00-0400 Respiratory rate 16 /min DO Denys Itzkowitz Work Phone: [facility] 05-03-2022 13:00-0400 SaO2% (BldA) [Mass fraction] 98 % DO Denys Itzkowitz Work Phone: [facility] 05-03-2022 13:00-0400 Systolic blood pressure 114 mm[Hg] DO Denys Itzkowitz Work Phone: [facility] 04-28-2022 16:06-0400 Body temperature 97.7 [degF] Shabbir Morales [facility] 04-28-2022 16:06-0400 Diastolic blood pressure 82 mm[Hg] Shabbir Morales [facility] 04-28-2022 16:06-0400 Heart rate 112 /min Shabbir Morales [facility] 04-28-2022 16:06-0400 Respiratory rate 18 /min Shabbir Morales [facility] 04-28-2022 16:06-0400 SaO2% (BldA) [Mass fraction] 98 % Shabbir Morales [facility] 04-28-2022 16:06-0400 Systolic blood pressure 132 mm[Hg] Shabbir Morales [facility] 03-28-2022 16:15-0400 Body height 160.02 cm Shaun Aviles Other [employer] [facility] [employer] Other 03-28-2022 16:15-0400 Body mass index (BMI) [Ratio] 22.99 kg/m2 Shaun Aviles Other [employer] [facility] [employer] Other 03-28-2022 16:15-0400 Body weight 58.88 kg Shaun Aviles Other [employer] Other 03-28-2022 16:15-0400 Diastolic blood pressure 70 mm[Hg] Shaun Aviles Other [employer] Other 03-28-2022 16:15-0400 Respiratory rate 16 /min Shaun Aviles Other [employer] [facility] Other 03-28-2022 16:15-0400 SaO2% (BldA) [Mass fraction] 98 % Shaun Aviles Other [employer] [facility] Other 03-28-2022 16:15-0400 Systolic blood pressure 122 mm[Hg] Shaun Aviles Other [employer] Other 01-19-2022 14:15-0400 Body height 160.02 cm Shaun Aviles Other [employer] [facility] Other 01-19-2022 14:15-0400 Body mass index (BMI) [Ratio] 22.85 kg/m2 Shaun Aviles Other [employer] Other 01-19-2022 14:15-0400 Body weight 58.51 kg Shaun Aviles Other [employer] Other 01-19-2022 14:15-0400 Diastolic blood pressure 80 mm[Hg] Shaun Aviles Other [employer] Other 01-19-2022 14:15-0400 Respiratory rate 16 /min Shaun Aviles Other [employer] Other 01-19-2022 14:15-0400 SaO2% (BldA) [Mass fraction] 95 % Shaun Aviles Other [employer] Other 01-19-2022 14:15-0400 Systolic blood pressure 124 mm[Hg] Shaun Aviles Other [employer] Other 12-15-2021 13:00-0500 Body height 160.02 cm Shaun Aviles Other [employer] [facility] Other 12-15-2021 13:00-0500 Body mass index (BMI) [Ratio] 22.49 kg/m2 Shaun Aviles Other [employer] [facility] Other 12-15-2021 13:00-0500 Body weight 57.61 kg Shaun Aviles Other [employer] Other 12-15-2021 13:00-0500 Diastolic blood pressure 70 mm[Hg] Shaun Aviles Other [employer] Other 12-15-2021 13:00-0500 Respiratory rate 16 /min Shaun Aviles Other [employer] Other 12-15-2021 13:00-0500 SaO2% (BldA) [Mass fraction] 99 % Shaun Aviles Other [employer] Other 12-15-2021 13:00-0500 Systolic blood pressure 110 mm[Hg] Shaun Aviles Other [employer] Other 11-07-2021 12:00-0500 Body height 160.02 cm Shaun Aviles Other [employer] [facility] Other 11-07-2021 12:00-0500 Body mass index (BMI) [Ratio] 22.85 kg/m2 Shaun Aviles Other [employer] [facility] [employer] [facility] Other 11-07-2021 12:00-0500 Body weight 58.51 kg Shaunjairon Monzonbere Other [employer] Other 11-07-2021 12:00-0500 Diastolic blood pressure 64 mm[Hg] Shaun Nicoláss Other [employer] Other 11-07-2021 12:00-0500 Respiratory rate 18 /min Shaun Traci Other [employer] Other 11-07-2021 12:00-0500 SaO2% (BldA) [Mass fraction] 99 % Shaun Aviles Other [employer] Other 11-07-2021 12:00-0500 Systolic blood pressure 112 mm[Hg] Shaun Traci Other [employer] Other 09-26-2021 13:30-0500 Body height 160.02 cm Shaun Traci Other [employer] Other 09-26-2021 13:30-0500 Body mass index (BMI) [Ratio] 22.32 kg/m2 Shanu Traci Other [employer] Other 09-26-2021 13:30-0500 Body weight 57.15 kg Shaun Traci Other [employer] Other 09-26-2021 13:30-0500 Diastolic blood pressure 66 mm[Hg] Shaun Monzons Other [employer] Other 09-26-2021 13:30-0500 Respiratory rate 16 /min Shaun Aviles Other [employer] Other 09-26-2021 13:30-0500 SaO2% (BldA) [Mass fraction] 99 % Shaun Aviles Other [employer] Other 09-26-2021 13:30-0500 Systolic blood pressure 100 mm[Hg] Shaun Aviles Other [employer] Other Encounters Encounter Date Encounter Type Care Provider Facility Start: 01-05-2025 End: 01-05-2025 Bamboo flowsheet Ghanshyam Emilia DO Work Phone: [facility] Start: 01-05-2025 End: 01-05-2025 Bamboo flowsheet Ghanshyam Emilia DO Work Phone: [facility] Start: 01-05-2025 End: 01-05-2025 Patient encounter procedure Ghanshyam Emilia DO Work Phone: [facility] Start: 01-05-2025 End: 01-05-2025 Periodic preventive med est patient 18-39 yrs Ghanshyam Emilia DO Work Phone: [facility] Comment on above: Well woman exam with routine gynecological exam Start: 12-23-2024 End: 12-23-2024 ambulatory [facility] Work Phone: Start: 12-23-2024 End: 12-23-2024 Patient encounter procedure [facility] [place] Work Phone: Start: 11-11-2024 End: 11-11-2024 ambulatory [facility] Work Phone: Start: 11-11-2024 End: 11-11-2024 Patient encounter procedure [facility] Physician [facility] Work Phone: Start: 08-26-2024 End: 08-26-2024 ambulatory Shaun Aviles DO Work Phone: [facility] Work Phone: Start: 08-26-2024 End: 08-26-2024 Patient encounter procedure Shaun Traci DO Work Phone: [facility] [place] Work Phone: Start: 08-05-2024 End: 08-05-2024 Patient encounter procedure DO Shaun Aviles Work Phone: [facility] [place] Work Phone: Start: 08-05-2024 End: 08-05-2024 ambulatory DO Shaun Traci Work Phone: [facility] Work Phone: Start: 07-31-2024 End: 07-31-2024 ambulatory DO Shaun Traci Work Phone: [facility] Work Phone: Start: 07-31-2024 End: 07-31-2024 Patient encounter procedure DO Shanu Traci Work Phone: [facility] Gastroenterology Work Phone: Start: 07-10-2024 End: 07-10-2024 ambulatory CASSANDRA GONZALEZ Not Available Start: 07-10-2024 End: 07-10-2024 Office outpatient visit 15 minutes Cassandra Gonzalez PA Work Phone: [facility] Comment on above: Dental infection (Pr imary Dx) Start: 07-01-2024 Non-patient / Non-visit DO Sebastián jairon Traci Work Phone: [facility] Gastroenterology Work Phone: Start: 07-01-2024 End: 07-01-2024 Admission to same day surgery center DO Shaun Aviles Work Phone: [facility] Work Phone: Start: 07-01-2024 End: 07-01-2024 ambulatory Willie J Dideidra Facility:[facility] Start: 06-16-2024 End: 06-16-2024 ambulatory [facility] Work Phone: Start: 06-16-2024 End: 06-16-2024 Patient encounter procedure [facility] Physician [facility] Gastroenterology Work Phone: Start: 05-19-2024 Non-patient / Non-visit [facility] Physician [facility] [place] Work Phone: Start: 05-18-2024 Non-patient / Non-visit [facility] Physician [facility] [place] Work Phone: Start: 04-15-2024 End: 04-15-2024 ambulatory DO Shaun Aviles Work Phone: [facility] Work Phone: Start: 04-15-2024 End: 04-15-2024 Patient encounter procedure DO Shaun Aviles Work Phone: [facility] Physician [facility] Gastroenterology Work Phone: Start: 01-29-2024 End: 01-29-2024 ambulatory DO Shaun Aviles Work Phone: [facility] Work Phone: Start: 01-29-2024 End: 01-29-2024 Patient encounter procedure DO Shaun Aviles Work Phone: [facility] Physician [facility] Medicine [place] Work Phone: Start: 01-22-2024 End: 01-22-2024 Patient encounter procedure DO Shaun Aviles Work Phone: [facility] Start: 01-22-2024 End: 01-22-2024 ambulatory DO Shaun Aviles Work Phone: [facility] Work Phone: Start: 12-27-2023 End: 12-27-2023 Patient encounter procedure DO Shaun Aviles Work Phone: [facility] [place] Work Phone: Start: 12-27-2023 End: 12-27-2023 ambulatory DO Shaun Aviles Work Phone: [facility] Work Phone: Start: 10-16-2023 End: 10-16-2023 ambulatory Lj Stanton Other [employer] [facility] [employer] Other Start: 10-16-2023 Office outpatient vi sit 15 minutes Lj Stanton [facility] Start: 10-16-2023 End: 10-16-2023 Patient encounter procedure DO Shaun Aviles Work Phone: [facility] Work Phone: Start: 08-23-2023 End: 08-23-2023 ambulatory Willie Lambert Other [facility] [employer] Other Start: 08-23-2023 Telephone encounter Willie Lambert [facility] Start: 08-22-2023 End: 08-22-2023 Admission to same day surgery center DO Shaun Aviles Work Phone: [facility] Work Phone: Start: 08-22-2023 End: 08-22-2023 ambulatory DO Shaun Aviles Work Phone: [facility] Work Phone: Start: 08-15-2023 End: 08-15-2023 ambulatory DO Shaunjairon Aviles Work Phone: [facility] Work Phone: Start: 08-15-2023 End: 08-15-2023 Patient encounter procedure DO Shaun Aviles Work Phone: [facility] Main [place] Work Phone: Start: 07-26-2023 End: 07-26-2023 ambulatory Shaun Aviles Other [employer] Other Start: 07-26-2023 Office outpatient vi sit 25 minutes Shaun Avilse [facility] Start: 07-20-2023 End: 07-20-2023 ambulatory Shaun Aviles Other [employer] [facility] Other Start: 07-20-2023 Telephone encounter Shaun Aviles [facility] Start: 07-17-2023 End: 07-17-2023 ambulatory DO Shaun Aviles Work Phone: [facility] Work Phone: Start: 07-17-2023 End: 07-17-2023 Patient encounter procedure DO Shuan Aviles Work Phone: [facility]-Ultrasound Cntr for Breast Car Start: 07-09-2023 End: 07-09-2023 ambulatory Lj Stanton Other [facility] Other Start: 07-09-2023 Office outpatient ne w 30 minutes Lj Stanton [facility] Gastroenterology Start: 07-05-2023 End: 07-05-2023 ambulatory Shaun Aviles Other [employer] Other Start: 07-05-2023 Telephone encounter Shaun Aviles [facility] Start: 07-01-2023 End: 07-01-2023 Emergency department patient visit Mirna Mcmullen Facility:[facility] Start: 07-01-2023 End: 07-01-2023 [facility] Start: 04-23-2023 (Procedure) Murray Marinelli [facility] Start: 04-23-2023 End: 04-23-2023 ambulatory Rell Marinelli Other [facility] Other Start: 04-05-2023 End: 04-05-2023 ambulatory eRll Marinelli Other [employer] [facility] [employer] [facility] Other Start: 04-05-2023 Office outpatient vi sit 25 minutes Rell Marinelli [facility] Pain Management [place] Start: 04-05-2023 Telephone encounter Rell Marinelli [employer] Start: 03-06-2023 End: 03-06-2023 ambulatory Shaun Aviles Other [employer] [facility] Other Start: 03-06-2023 Office outpatient vi sit 25 minutes Shaun Aviles [facility] Start: 01-01-2023 End: 01-01-2023 ambulatory DO Shaun Aviles Work Phone: [facility] Work Phone: Start: 01-01-2023 End: 01-01-2023 Patient encounter procedure DO Shaun Aviles Work Phone: [facility] Work Phone: Start: 11-24-2022 End: 11-24-2022 ambulatory DO Shaun Aviles Work Phone: [facility] Work Phone: Start: 11-24-2022 End: 11-24-2022 Patient encounter procedure DO Shaun Aviles Work Phone: [facility] Work Phone: Start: 10-20-2022 End: 10-20-2022 ambulatory Shaun Aviles Other [employer] Other Start: 10-20-2022 Telephone encounter Shaun Aviles [facility] Start: 08-21-2022 End: 08-21-2022 ambulatory Shaun Aviles Other [employer] Other Start: 08-21-2022 Office outpatient vi sit 15 minutes Shaun Aviles [facility] Start: 08-17-2022 End: 08-17-2022 ambulatory Shaun Aviles Other [employer] Other Start: 08-17-2022 Telephone encounter Shaun Aviles [facility] Start: 07-18-2022 End: 07-19-[address] SHAUN AVILES Facility:[facility] Start: 07-06-2022 End: 07-06-[address] ILENE MERCADO Facility:[facility] Start: 07-02-2022 End: 07-02-[address] SHAUN AVILES Facility:[facility] Start: 06-30-2022 End: 06-30-[address] DOCTOR GLASER Facility:[facility] Start: 06-29-2022 Encounter for preprocedural laboratory examination DR GHANSHYAM NIETO [facility] Start: 06-27-2022 End: 06-28-[address] DOCTOR GLASER Facility:[facility] Start: 06-27-2022 End: 06-28-2022 Encounter for preprocedural laboratory examination DR DOCTOR GLASER Facility:[facility] Start: 06-25-2022 Encounter for other preprocedural examination DR GHANSHYAM NIETO [facility] Start: 06-21-2022 End: 06-22-[address] DOCTOR GLASER Facility:[facility] Start: 06-21-2022 End: 06-22-2022 Encounter for other preprocedural examination DR DOCTOR GLASER Facility:[facility] Start: 06-17-2022 End: 06-18-[address] DOCTOR GLASER Facility:[facility] Start: 05-03-2022 End: 05-03-2022 Admission to same day surgery center DO Denys Pearson Work Phone: [facility] for [facility] Car Start: 05-01-2022 End: 05-01-2022 ambulatory Shaun Aviles Other [employer] Other Start: 05-01-2022 Telephone encounter Shaun Aviles [facility] Start: 04-28-2022 End: 04-28-2022 Emergency department patient visit Shabbir UnderwoodWojciech Andrew [facility] Start: 04-18-2022 End: 04-18-2022 Patient encounter procedure DO Denys Pearson Work Phone: [facility] for Breast Car Start: 03-30-2022 End: 03-30-2022 ambulatory Shaun Aviles Other [employer] Other Start: 03-30-2022 Telephone encounter Shaun Aviles [facility] Start: 03-28-2022 End: 03-28-2022 ambulatory Shaun Aviles Other [employer] Other Start: 03-28-2022 Office outpatient vi sit 25 minutes Shaun Aviles [facility] Start: 02-16-2022 End: 02-16-2022 ambulatory Shaun Aviles Other [employer] Other Start: 02-16-2022 Telephone encounter Shaun Aviles [facility] Start: 01-19-2022 End: 01-19-2022 ambulatory Shaun Aviles Other [employer] Other Start: 01-19-2022 Office outpatient vi sit 25 minutes Shaun Aviles [facility] Start: 01-19-2022 Telephone encounter Shaun Aviles [facility] Start: 01-13-[address] GHANSHYAM NIETO Facility : Start: 12-28-2021 End: 12-29-[address] GHANSHYAM NIETO [place] Other Start: 12-28-2021 Telephone encounter Shaun Aviles [employer] Start: 12-15-2021 End: 12-15-2021 ambulatory Shaun Aviles Other [employer] Other Start: 12-15-2021 Office outpatient vi sit 25 minutes Shaun Aviles [facility] Start: 11-28-2021 End: 11-28-2021 ambulatory Shaun Aviles Other [employer] [facility] Other Start: 11-28-2021 Telephone encounter Shaun Aviles [facility] Start: 11-24-2021 End: 11-24-2021 ambulatory Shaun Aviles Other [employer] [facility] Other Start: 11-24-2021 Telephone encounter Shaun Aviles [facility] Start: 11-23-2021 End: 11-23-[address] DOCTOR GLASER Facility:[facility] Start: 11-15-2021 End: 11-16-[address] SHAUN AVILES Facility:[facility] Start: 11-07-2021 End: 11-07-2021 ambulatory Shaun Aviles Other [employer] Other Start: 11-07-2021 Office outpatient vi sit 25 minutes Shaun Aviles [facility] Start: 09-28-2021 End: 09-29-[address] SHAUN AVILES Facility:[facility] Start: 09-26-2021 End: 09-26-2021 ambulatory Shaun Aviles Other [employer] [facility] Other Start: 09-26-2021 Office outpatient vi sit 25 minutes Shaun Aviles [facility] Start: 11-29-2015 End: 11-29-2015 Patient encounter procedure UNKNOWN PROVIDER Facility:[facility] Procedures Date Procedure Procedure Detail Performing Clinician Start: 01-05-2025 Urine test visual color cmprsn meths Ghanshyam Emilia DO Work Phone: Start: 07-01-2024 Esophagogastroduodenoscopy DO Shaun Aviles Work Phone: Start: 05-19-2024 E coli Shiga Toxin EIA Start: 05-19-2024 Salmonella/Shigella Screen Start: 01-22-2024 Ultrasonography of left breast DO Shaun Aviles Work Phone: Start: 08-22-2023 Colonoscopy DO Shaun Aviles Work Phone: Start: 08-15-2023 Stool culture for bacteria DO Shuan Aviles Work Phone: Start: 07-17-2023 Ultrasonography of left breast DO Shaun Aviles Work Phone: Start: 01-01-2023 Radiography of sacrococcygeal spine DO Georgie Aviles Work Phone: Start: 01-01-2023 X-ray of lumbar spine, four or more views DO Shaun Aviles Work Phone: Start: 11-24-2022 Ultrasonography of left breast DO Shaun Aviles Work Phone: Start: 05-03-2022 Core needle biopsy of breast using ultrasound guidance DO Denys Pearson Work Phone: Start: 04-18-2022 Ultrasonography of left breast DO Twyla Pearson Work Phone: Plan of Treatment Date Care Activity Detail Author Start: 12-15-2024 End: 12-15-2024 Patient encounter procedure 12/15/2024 1:00 PM EDT Office Visit [facility] [address] [place] [address] Ghanshyam Nieto, DO [address] [place] [address] [facility] Start: 07-01-2024 [facility] Start: 08-22-2023 [facility] Start: 08-15-2023 Ova and Parasite Concentrate Exam Ova and Parasite Concentrate Exam [facility] Bacteria identified in Stool by Culture [facility] Calprotectin [Mass/m ass] in Stool [facility] Comprehensive metabo lic 2000 panel - Serum or Plasma [facility] Cytology Cervical or vaginal smear or scraping study Pap Smear Pathology and Cytology Routine Well woman exam with routine gynecological exam Ordered: 01/05/2025 [facility] Work Phone: Comment on above: Ordered: 01/05/2025 Elastase.pancreatic [Mass/mass] in Stool [facility] Endomysial antibody IgA level [facility] Gliadin peptide IgA Ab [Units/volume] in Serum [facility] Gliadin peptide IgG Ab [Units/volume] in Serum [facility] HIV 1+2 Ab+HIV1 p24 Ag [Presence] in Serum or Plasma by Immunoassay [facility] IgA [Mass/volume] in Serum or Plasma [facility] Ova and parasites identified in Unspecified specimen by Light microscopy [facility] Patient Education [facility] Work Phone: Tissue transglutamin ase IgA Ab [Units/volume] in Serum [facility] Tissue transglutamin ase IgG Ab [Units/volume] in Serum [facility] Immunizations Immunization Date Immunization Notes Care Provider Fa cility 01-09-2023 hepatitis A vaccine, adult dosage [facility] 01-09-2023 tetanus toxoid, reduced diphtheria toxoid, and acellular pertussis vaccine, adsorbed [facility] 03-16-2014 hepatitis A vaccine, pediatric/adolescen t dosage, 2 dose schedule [facility] 03-16-2014 human papilloma virus vaccine, quadrivalent [facility] 02-27-2013 human papilloma virus vaccine, quadrivalent [facility] 12-06-2012 human papilloma virus vaccine, quadrivalent [facility] 02-21-2010 tetanus toxoid, reduced diphtheria toxoid, and acellular pertussis vaccine, adsorbed [facility] 02-05-2003 diphtheria, tetanus toxoids and acellular pertussis vaccine [facility] 02-05-2003 measles, mumps and rubella virus vaccine [facility] 02-05-2003 poliovirus vaccine, inactivated [facility] 07-26-1999 diphtheria, tetanus toxoids and acellular pertussis vaccine, unspecified formulation [facility] 07-26-1999 haemophilus influenzae type b vaccine, conjugate unspecified formulation [facility] 10-18-1998 measles, mumps and rubella virus vaccine [facility] 10-18-1998 trivalent poliovirus vaccine, live, oral [facility] 06-16-1998 diphtheria, tetanus toxoids and acellular pertussis vaccine, unspecified formulation [facility] 06-16-1998 haemophilus influenzae type b vaccine, conjugate unspecified formulation [facility] 04-13-1998 diphtheria, tetanus toxoids and acellular pertussis vaccine, unspecified formulation [facility] 04-13-1998 haemophilus influenzae type b conjugate and Hepatitis B vaccine [facility] 04-13-1998 poliovirus vaccine, inactivated [facility] 1997 diphtheria, tetanus toxoids and acellular pertussis vaccine, unspecified formulation [facility] 1997 haemophilus influenzae type b conjugate and Hepatitis B vaccine [facility] 1997 poliovirus vaccine, inactivated [facility] 1997 hepatitis B vaccine, pediatric or pediatric/adolescen t dosage [facility] NEGATED: Highlighted row has not occurred!09-17-2019 influenza, seasonal, injectable Patient Objection Shaun Aviles Other [facility] Payers Date Payer Category Payer Medicaid [employer] [place] [id number] 2017-Present [address] [place] [address] [id number] 2017 Private Health Insurance [facility] MEDICA[facility] [id number] 2017 Medicaid [id number] 2014 Medicaid [id number] 1997 Unknown [id number] 2.16.840.1.827624.3.579.2. 732 1997 Unknown [id number] 2.16.840.1.995528.3.579.2. 593 1997 Unknown [id number] 2.16.840.1.336923.3.579.2. 593 1997 Unknown [id number] 2.16.840.1.765477.3.579.2. 593 1997 Unknown [id number] 2.16.840.1.499028.3.579.2. 593 1997 Unknown [id number] 2.16.840.1.938681.3.579.2. 593 1997 Unknown [id number] 2.16.840.1.683414.3.579.2. 593 1997 Unknown [id number] 2.16.840.1.991651.3.579.2. 593 1997 Unknown [id number] 2.16.840.1.901180.3.579.2. 593 1997 Unknown [id number] 2.16.840.1.235147.3.579.2. 593 1997 Unknown [id number] 2.16.840.1.556864.3.579.2. 593 1997 Unknown [id number] 2.16.840.1.392374.3.579.2. 593 1997 Unknown [id number] 2.16.840.1.397413.3.579.2. 593 1997 Unknown [id number] 2.16.840.1.121894.3.579.2. 593 1997 Unknown [id number] 2.16.840.1.484924.3.579.2. 727 1997 Unknown [id number] 2.16.840.1.769977.3.579.2. 1259 1959 Self-pay [id number] 1959 Unknown [id number] 2.16.840.1.438122.19 Unknown [id number] 2.16.840.1.878884.3.579.2. 531 Unknown [id number] 2.16.840.1.507709.3.579.2. 531 Unknown [id number] 2.16.840.1.637924.3.579.2. 531 Unknown [id number] 2.16.840.1.957787.3.579.2. 531 Unknown [id number] 2.16.840.1.231129.3.579.2. 531 Social History Date Type Detail Facility Unknown if ever smoked [facility] Other Start: 08-06-2023 End: 07-10-2024 Sex Assigned At [employer] [facility] [employer] Other Tobacco Vaping [facility] Comment on above: vapes daily Start: 1995 Sex Assigned At Female F [facility] Tobacco smoking status No Smokin g Status Entered [facility] Start: 08-22-2023 End: 06-16-2024 Tobacco smoking status NHIS Smoker (finding) [facility] Start: 12-27-2023 Tobacco smoking stat [facility] Never smoked tobacco (finding) [facility] Start: 05-08-2023 [facility] History of tobacco use Cigarette Smoker [facility] Start: 07-10-2024 End: 01-05-2025 Alcoholic beverage intake Lifetime non-drinker (finding) [facility] Start: 08-06-2023 End: 07-10-2024 History of Social function [facility] Start: 1995 Sex assigned at Not on file [facility] Start: 08-26-2024 End: 12-23-2024 Sex Female (finding) [facility] Goals Date Patient Goal Desired Activity /State Functional Status Date Assessment Result Facility 07-01-2023 Functional Status N/A [facility] 04-28-2022 Functional Status N/A [facility] Clinical Notes 09-26-2021 to 01-05-2025 Ayah Varma NP - 01/05/2025 1:20 PM EDT Note Date & Type Note Facility 01-05-2025 History of Presen t illness Narrative Reason for Appointment: Patient ID: Brian Sullivan is a 29 y.o. female who presents for Well Women Visit Patient presents today for Annual Exam. MEDICATIONS Current Outpatient Medications Medication Instructions ALPRAZolam (XANAX) 1 mg, Oral, Nightly PRN Lumateperone Tosylate (CAPLYTA PO) Caplyta Lumateperone Tosylate (Caplyta) 10.5 MG capsule Caplyta mirtazapine (REMERON) 45 mg, Oral, Nightly pantoprazole (ProtoNix) 40 MG EC tablet Every 24 hours ALLERGIES Allergies Allergen Reactions Ciprofloxacin Other Reaction(s): phsychosis Ibuprofen Hives, Unknown and Other Sulfa Antibiotics Hives and Unknown Sulfacetamide Unknown Latex Rash PROBLEMS Active Ambulatory Problems Diagnosis Date Noted Encounter for follow-up 06/04/2023 Resolved Ambulatory Problems Diagnosis Date Noted No Resolved Ambulatory Problems Past Medical History: Diagnosis Date Anxiety and depression (CMS/HCC) Bladder infection BMI 24.0-24.9, adult Breast lump Breast lump on left side at 11 o'clock position Chicken pox Chronic rhinitis 2009 Dysmenorrhea External hemorrhoids Fallopian tube disorder Family history of cancer H/O bilateral salpingectomy History of endometrial ablation History of psychiatric care Hypertrophy of both inferior nasal turbinates 2009 Menorrhagia with irregular cycle Post-op pain Postop check Recurrent epistaxis 2009 Spasm of bowel Uterine leiomyoma Vaginal infection HISTORY PAST MEDICAL HISTORY SOCIAL HISTORY Past Medical History: Diagnosis Date Anxiety and depression (CMS/HCC) Bladder infection BMI 24.0-24.9, adult Breast lump Breast lump on left side at 11 o'clock position Chicken pox Chronic rhinitis 2009 Dysmenorrhea External hemorrhoids Fallopian tube disorder Family history of cancer H/O bilateral salpingectomy History of endometrial ablation History of psychiatric care Hypertrophy of both inferior nasal turbinates 2009 hypertrophic turbinates Menorrhagia with irregular cycle Post-op pain Postop check Recurrent epistaxis 2009 Spasm of bowel Uterine leiomyoma Vaginal infection Social History Tobacco Use Smoking status: Every Day Types: Cigarettes Smokeless tobacco: Not on file Vaping Use Vaping status: Every Day Substance Use Topics Alcohol use: Never Drug use: Never FAMILY HISTORY Family History Problem Relation Name Age of Onset Mental illness Mother Cancer Mother Arthritis Mother No Known Problems Sister 3 sisters COPD Maternal Grandmother Arthritis Maternal Grandmother Hyperlipidemia Maternal Grandmother Hypertension Maternal Grandmother Diabetes Maternal Grandmother Arthritis Maternal Grandfather COPD Maternal Grandfather Hyperlipidemia Maternal Grandfather Hypertension Maternal Grandfather Congenital heart disease Maternal Grandfather Arthritis Paternal Grandmother Mental illness Paternal Grandmother Hyperlipidemia Paternal Grandmother Hypertension Paternal Grandmother Arthritis Paternal Grandfather Hypertension Paternal Grandfather Heart disease Paternal Grandfather Stroke Paternal Grandfather Hyperlipidemia Paternal Grandfather COPD Paternal Grandfather Breast cancer Father's Sister No Known Problems Son Colon cancer Neg Hx Ovarian cancer Neg Hx SURGICAL HISTORY Past Surgical History: Procedure Laterality Date BI US GUIDED BREAST LOCALIZATION AND BIOPSY LEFT Left 05/03/2022 BI US GUIDED BREAST LOCALIZATION AND BIOPSY LEFT [facility] CYSTOSCOPY 2013 w/ dilation ENDOMETRIAL ABLATION 2021 LAPAROSCOPY DIAGNOSTIC / BIOPSY / ASPIRATION / LYSIS 2019 OTHER SURGICAL HISTORY 2018 calcification and blood clot removal from fallopian tube PAP SMEAR 08/23/2016 negative, + Chlamydia SALPINGECTOMY Bilateral 2021 TONSILLECTOMY 2014 REVIEW OF SYSTEMS Review of Systems: Review of Systems Constitutional: Negative. HENT: Negative. Eyes: Negative. Respiratory: Negative. Cardiovascular: Negative. Gastrointestinal: Negative. Genitourinary: Negative. Musculoskeletal: Negative. Skin: Negative. Neurological: Negative. All other systems reviewed and are negative. Hematological: Negative. Endocrine: Negative. Allergic/Immunologic: Negative. OBJECTIVE Objective: Physical Exam Constitutional: Appearance: Normal appearance. She is well-developed. Genitourinary: Vulva normal. Breasts: Breasts are soft. Right: Normal. Left: Normal. Cardiovascular: Rate and Rhythm: Normal rate and regular rhythm. Pulmonary: Effort: Pulmonary effort is normal. Breath sounds: Normal breath sounds. Abdominal: General: Bowel sounds are normal. There is no distension. Palpations: Abdomen is soft. Tenderness: There is no abdominal tenderness. There is no guarding or rebound. Musculoskeletal: General: No swelling. Normal range of motion. Right lower leg: No edema. Left lower leg: No edema. Neurological: Mental Status: She is alert and oriented to person, place, and time. Skin: General: Skin is warm and dry. Psychiatric: Mood and Affect: Mood normal. Behavior: Behavior normal. Vitals and nursing note reviewed. Exam conducted with a cotton agent present. Vitals: Estimated body mass index is 23.99 kg/m as calculated from the following: Height as of 05/09/23: 5' 3 . Weight as of this encounter: 135 lb 6.4 oz. BP: 110/70 No LMP recorded (lmp unknown). ASSESSMENT & PLAN ICD-10-CM 1. Well woman exam with routine gynecological exam Z01.419 Pap Smear POCT , urine manually resulted Annual Exam: Patient presents today for an annual exam. Patient states she is doing well and has no complaints. Pap was obtained without difficulty. Orders Placed This Encounter Procedures POCT , urine manually resulted Follow Up: Patient is to return in one year for annual unless needed otherwise. Documented by Ayah Varma NP on behalf of: Ghanshyam Nieto DO documented in this encounter [facility] 08-26-2024 Evaluation note Authored August 26, 2024 1:47pm The above note written by Dolly Chris LPN, acting as human recorder, note dictated by Dr. Shaun Aviles. [facility] Work Phone: 1(317) 444-511010-03-2024 History of Present illness Narrative* JUANJO Shrestha - 07/10/2024 3:40 PM EDT Images from the original note were not included. HPI: Historian of HPI: patient Brian Sullivan is a 28 y.o. female who presents today to the Urgent Care with the following complaints and denials due to tooth problems which has been present for 3 day(s) C/O Denies Symptom Comments [x] [] Tooth pain Multiple [x] [] Gum swelling [x] [] Gum tenderness [] [x] discharge [x] [] Difficulty chewing [x] [] Difficulty drinking liquids hot liquids cold liquids [] [x] Dental visit in past 12 months Additional Comments: pt has taken tylenol, ibuprofen OTC medication without relief Pt states she has had bad teeth for awhile and has tried to get into dentist but has not been able to. Pt states she cannot open her jaw. Upper and lower wisdom teeth are painful. Current Outpatient Medications on File Prior to Visit Medication Sig Dispense Refill ALPRAZolam (Xanax) 1 MG tablet Take 1 mg by mouth as needed at bedtime. Lumateperone Tosylate (Caplyta) 10.5 MG capsule Caplyta mirtazapine (Remeron) 45 MG tablet Take 45 mg by mouth at bedtime. pantoprazole (ProtoNix) 40 MG EC tablet 1 (one) time each day at the same time clindamycin-benzoyl peroxide (Duac) 1.2-5% gel Apply a pea size amount to face, extremities, and trunk once daily Lumateperone Tosylate (CAPLYTA PO) Caplyta No current facility-administered medications on file prior to visit. Allergies Allergen Reactions Ciprofloxacin Other Reaction(s): phsychosis Ibuprofen Hives, Unknown and Other Sulfa Antibiotics Hives and Unknown Sulfacetamide Unknown Latex Rash Social History Tobacco Use Smoking status: Every Day Types: Cigarettes Vaping Use Vaping status: Every Day Substance Use Topics Alcohol use: Never Drug use: Never Family History Problem Relation Name Age of Onset Mental illness Mother Cancer Mother Arthritis Mother No Known Problems Sister 3 sisters COPD Maternal Grandmother Arthritis Maternal Grandmother Hyperlipidemia Maternal Grandmother Hypertension Maternal Grandmother Diabetes Maternal Grandmother Arthritis Maternal Grandfather COPD Maternal Grandfather Hyperlipidemia Maternal Grandfather Hypertension Maternal Grandfather Congenital heart disease Maternal Grandfather Arthritis Paternal Grandmother Mental illness Paternal Grandmother Hyperlipidemia Paternal Grandmother Hypertension Paternal Grandmother Arthritis Paternal Grandfather Hypertension Paternal Grandfather Heart disease Paternal Grandfather Stroke Paternal Grandfather Hyperlipidemia Paternal Grandfather COPD Paternal Grandfather Breast cancer Father's Sister No Known Problems Son Colon cancer Neg Hx Ovarian cancer Neg Hx Past Medical History: Diagnosis Date Anxiety and depression ([facility]) Bladder infection BMI 24.0-24.9, adult Breast lump Breast lump on left side at 11 o'clock position Chicken pox Chronic rhinitis 2009 Dysmenorrhea External hemorrhoids Fallopian tube disorder Family history of cancer H/O bilateral salpingectomy History of endometrial ablation History of psychiatric care Hypertrophy of both inferior nasal turbinates 2009 hypertrophic turbinates Menorrhagia with irregular cycle Post-op pain Postop check Recurrent epistaxis 2009 Spasm of bowel Uterine leiomyoma Vaginal infection Past Surgical History: Procedure Laterality Date BI US GUIDED BREAST LOCALIZATION AND BIOPSY LEFT Left 05/03/2022 BI US GUIDED BREAST LOCALIZATION AND BIOPSY LEFT [facility] DATA LEGACY CYSTOSCOPY 2013 w/ dilation ENDOMETRIAL ABLATION 2021 LAPAROSCOPY DIAGNOSTIC / BIOPSY / ASPIRATION / LYSIS 2019 OTHER SURGICAL HISTORY 2018 calcification and blood clot removal from fallopian tube PAP SMEAR 08/23/2016 negative, + Chlamydia SALPINGECTOMY Bilateral 2021 TONSILLECTOMY 2014 Visit Vitals BP 110/80 Pulse 75 Temp 98 F SpO2 98% Smoking Status Every Day ROS: A complete system ROS was performed and negative aside from the pertinent positives noted in the HPI and PE. Physical Exam Constitutional: General: She is not in acute distress. Appearance: Normal appearance. She is well-developed. HENT: Head: Normocephalic and atraumatic. Mouth/Throat: Mouth: Mucous membranes are moist. Dentition: Abnormal dentition. Dental tenderness, gingival swelling and dental caries present. Eyes: General: No scleral icterus. Conjunctiva/sclera: Conjunctivae normal. Cardiovascular: Rate and Rhythm: Normal rate and regular rhythm. Heart sounds: Normal heart sounds. No murmur heard. Pulmonary: Effort: Pulmonary effort is normal. No respiratory distress. Breath sounds: Normal breath sounds. No wheezing, rhonchi or rales. Lymphadenopathy: Cervical: Cervical adenopathy (Submandibular) present. Skin: General: Skin is warm and dry. Neurological: General: No focal deficit present. Mental Status: She is alert and oriented to person, place, and time. Psychiatric: Mood and Affect: Mood normal. Behavior: Behavior normal. Assessment/Plan Diagnoses and all orders for this visit: Dental infection - predniSONE (Deltasone) 10 MG tablet; Take 1 tablet (10 mg) by mouth 3 (three) times a day for 3 days, THEN 1 tablet (10 mg) 2 (two) times a day for 3 days, THEN 1 tablet (10 mg) Daily for 3 days. - amoxicillin (Amoxil) 875 MG tablet; Take 1 tablet (875 mg) by mouth in the morning and 1 tablet (875 mg) before bedtime. Do all this for 10 days. Start the above as directed. Reviewed potential s/e with patient. She cannot tolerate ibuprofen. Has taken Prednisone before without s/e, sent in for pt. Reminded her to take it with food. Increase water intake, get plenty of rest. Can take OTC Tylenol prn. Encouraged good oral hygiene. Follow up with dentist марина, she is trying to find one that will accept her insurance. Cassandra ZAMORA, DEEP documented in this encounterSaint [facility] [id number] Procedure [facility] [place]07-09-2024 Evaluation note* Author Lj Stanton [facility] Authored April 15, 2024 2:20p m Patient is positive for abdo nelson pain, dyspepsia, specifically abdominal pain in the epigastric region as well as appetite suppression [facility] Work Phone: [phone] Evaluation note* Encounter Date Diagnosis Assessment Notes Treatment Notes Treatment Clinical Notes Oct, Abdominal pain (ICD-10 - R10.9) [...] She can use Pepcid OTC as needed. [facility] L[facility] Other 11-15-2023 Procedure [facility]10-19-2023 Evaluation note* Encounter Date Diagnosis Assessment Notes [...] Dr. Storey. We will continue to monitor. Guang Lian Shi Dai Other 10-02-2023 Evaluation note* Encounter Date Diagnosis [...] STOOL STUDIES AND COLONOSCOPY AT THIS TIME. [facility] Lian [facility] Dai Other 09-24-2023 Hospital Discharge instructions Patient Education 07/01/2023 20:46:37 Pelvic Pain, Female, Frhu-rv-Rmkw Pelvic Pain, Female Pelvic pain is pain [...] known. Follow these instructions at home: Take npkr-idp-uudabyd and prescription medicines only as told by [...] provider. Document Revised: 01/31/2022 Document Reviewed: 01/31/2022 [employer] Patient Education 2022 [employer]. Follow Up Care 07/01/2023 17:51:29 With:Ghanshyam NIETO Address: [address] [place] [address]- Business (1) When:07/04/2023 20:46:14 Comments:Call the office first thing Sunday morning With:SHWETA GONZALEZ Address:Unknown When:Within 3 Day(s) [facility]09-24-2023 Evaluation + Plan noteExtracted from: Title:ED [...] Diagnostic Tests Pending * Urine Culture 07/01/23 [facility]05-30-2023 Evaluation note* Encounter Date Diagnosis Assessment [...] L70.9) Patient is interested in seeing a garment patternmaker for acne, I am agreeable. Referral initiated. Guang Lian Shi Dai Other 11-14-2022 Evaluation note* Encounter Date Diagnosis [...] prescribing a scheduled benzodiazapine. She verbalized understanding. Guang Lian Shi Dai Other 09-23-2022 NoteOPERATIVE NOTE OPERATION DATE: 06/30/2022 PROCEDURE: Khalida endometrial ablation hysteroscopy with bilateral laparoscopic salpingectomy. PREOPERATIVE DIAGNOSIS: Menorrhagia, desire permanent sterilization, multiparity. POSTOPERATIVE DIAGNOSIS: Menorrhagia, desire permanent sterilization, multiparity. ANESTHESIA: General. SURGEON: Ghanshyam Nieto D.O. INDUSTRIAL GARAGE SERVICER: DANICA Feng URINE OUTPUT: Yellow and clear. [...] lap and needle counts were correct x2.[id number] Discharge instructions Patient Education 04/28/2022 16:54:37 [...] safe place to keep a gun, local [facility] may store a gun for you. Make [...] mental health organizations such as the National [place] [employer] [place] [employer]ness (AVRIL): www.avril.org Get help [...] 02/05/2018 Document Revised: 01/15/2020 Document Reviewed: 02/05/2018 [employer] Patient Education 2020 [employer]. 04/28/2022 16:54:37 Managing Anxiety, Adult Managing Anxiety, [...] care provider. Avoid caffeine, alcohol, and certain kprw-ehn-ukfhpbu cold medicines. These may make you feel worse. Ask your pharmacist which medicines to avoid. General instructions Take sfpf-ecl-udqngot and prescription medicines only as told by [...] Depression Association of [place] (ADAA): www.adaa.org National [place] [employer] [place]ness (AVRIL): www.avril.org Contact a [...] 09/18/2017 Document Revised: 02/24/2020 Document Reviewed: 02/24/2020 [employer] Patient Education 2020 [employer]. Follow Up Care 04/28/2022 16:03:48 With:SHWETA GONZALEZ Address:Unknown When:05/01/2022 16:39:14 Comments:Follow-up with your primary care provider in 3 to 5 days. If symptoms worsen, do not improve, or new symptoms arise please report back to emergency department for further evaluation. Continue to keepyour appointment with your psychiatrist on Sunday as well. [facility]07-22-2022 Evaluation + Plan noteExtracted from: Title:ED Note Author:Gamaliel Amos PA-C te:04/28/22 Anxiety (F41.9: Anxiety diso rder, unspecified) Orders: alprazolam, 0.5 mg = 1 tab(s), Oral, TID, PRN for anxiety, X 3 day(s), # 12 tab(s), Refills(s) 0, Pharmacy: [id number], 160, cm, 04/28/22 16:08:00 EDT, Height/Length Dosing, 63, kg, 04/28/22 16:08:00 EDT, Weight Dosing [facility]06-21-2022 Evaluation note* Encounter Date Diagnosis Assessment [...] Somatic dysfunction of rib (ICD-10 - M99.08) [facility] Lian Shi Dai Other 04-14-2022 Evaluation note* Encounter Date Diagnosis [...] with him and the specialist as scheduled. Guang Lian Shi Dai Other 04-14-2022 Evaluation note* Encounter Date Diagnosis Assessment Notes Treatment Notes Treatment Clinical Notes Jan, Anxiety with depression (ICD-10 - F41.8) Jan, Borderline personality disorder (ICD-10 - F60.3) Jan, PTSD (post-traumatic stress disorder) (ICD-10 - F43.10) [facility] Lian Shi Dai Other 03-10-2022 Evaluation note* Encounter Date Diagnosis [...] stools are normal, as they were prior. [facility] L[facility] Other 02-09-2022 History general Narrative - Reported* Type Description Date Medical History anxiety and depression Medical History bipolar disorder Medical History 11/16/21 abnormal mammogram Surgical History T&A 2015? Surgical History bladder stretched 2014 Surgical History Natural childbirth 2018 Hospitalization History see above Hospitalization History psychiatric 3-day stay 2 016 Hospitalization History Childbirth 2017 [facility] L[facility] Other 02-09-2022 History general Narrative - Reported* Type Description Date Medical History anxiety and depression Medical History bipolar disorder Medical History 11/16/21 abnormal mammogram Surgical History T&A 2015? Surgical History bladder stretched 2014 Surgical History Natural childbirth 2017 Surgical History Tubal ligation/ ablation 06/2022 Hospitalization History see above Hospitalization History psychiatric 3-day stay 2 016 Hospitalization History Childbirth 2018 [facility] L[facility] Other 01-31-2022 Evaluation note* Encounter Date Diagnosis [...] used to follow with a couselor at [facility] counseling and recovery but has [...] referred to Psychiatrist Dr. James Cosme in [place] and is currently scheduled 12/27/2021 which I [...] N64.52) Oct, Breast pain (ICD-10 - N64.4) [facility] Other 12-20-2021 Evaluation note* Encounter Date Diagnosis Assessment Notes Treatment Notes Treatment Clinical Notes Sep, Anxiety (ICD-10 - F41.9) The patient admits she has been hesitant to reach out regarding her anxiety due to her past experiences with child services and fear of them taking her 3.5 year old due to her mental health. She reports not having a good experience with [facility] Counsel[facility]. I did [...] disorder (ICD-10 - Z13.29) Blood work ordered. [facility] Lian Shi Dai Other Evaluation noteNo InformationNort [facility] Other Evaluation noteNo assessment information available [facility] Work Phone: Evaluation noteNort [facility] Other Evaluation note* Diagnosis Onset Date Resolution Status Difficulty sleeping acute Fibroadenoma of left breast acute Irritable bowel syndrome with diarrhea acute Schizophrenia acute [facility] Work Phone: Evaluation note* Author Lj Stanton [facility] Authored April 15, 2024 2:20p m Patient is positive for abdo nelson pain, dyspepsia, specifically abdominal pain in the epigastric region as well as appetite suppression [facility] Work Phone: Evaluation note* Diagnosis Dental infection- Primary documented in this encounter [facility]* Diagnosis Onset Date Resolution Status Dyspepsia acute Dysphagia acute Hemorrhoids acute Irritable bowel syndrome with diarrhea acute Nausea acute Dysphagia acute [facility] Work Phone: Evaluation note* Diagnosis Onset Date Resolution Status Dyspepsia acute Dysphagia acute Hemorrhoids acute Irritable bowel syndrome with diarrhea acute Nausea acute Dyspepsia acute Dysphagia acute [facility] Work Phone: Evaluation note* Author [facility] Authored August 26, 2024 1:47pm The above note written by Dolly Chris LPN, acting as human recorder, note dictated by Dr. Shaun Aviles. [facility] Work Phone: Evaluation note* Author [facility] Authored December 23, 2024 12: 48pm The above note written by Dolly Crhis LPN, acting as human recorder, note dictated by Dr. Shaun Aviles. [facility] Work Phone: Evaluation note* Diagnosis Well woman exam with routine gynecological exam Routine gynecological examination documented in this encounter [facility] HealthcareHistory and physical note Author Willie Lambert [facility] August 22, 2023 9:21am Note Date/Time August 22, 2023 9:21am [facility] [address] [place] [address] Gastroenterology H&P Signed Patient: Brian Sullivan MR#: [id number] : 1995 Acct:[id number] Age/Sex: 27 / F Adm Date: 3 Loc: Room: Type: [facility] Attending Dr: Willie Lambert MD [...] <Electronically signed by Willie Lambert MD> 08/22/23920 [facility] Work Phone: History and physical note Author Willie Lambert [facility] July 01, 2024 2:06pm Note Date/Time July 01, 2024 2:06pm [facility] [address] [place] [address] Gastroenterology H&P Signed Patient: Brian Sullivan MR#: [id number] : 1995 Acct:[id number] Age/Sex: 28 / F Adm Date: 4 Loc: Room: Type: [facility] Attending Dr: Willie Lambert MD Copies to: DO Willie Carrion MD~ Date of Service: 07/01/2024 HISTORY & PHYSICAL: Patient's history with special attention to the cardiovascular, pulmonary systems and the current problem was reviewed with the patient immediately prior to the procedure. Present medications and doses reviewed in the EMR. Allergies and pertinent laboratory tests were also reviewedat this time in the EMR. The physical examination, as below, was then performed. Indication, assessment and HPI: 28-year-old female presents for EGD to evaluate dyspepsia and dysphagia Family history of GI malignancy? no PHYSICAL EXAMINATION Mouth and Pharynx : moist mucus membranes, normal dentition Cardiac: regular rate, regular rhythm Pulmonary: normal respiratory effort, able to speak in complete sentences Neurological: alert and oriented x3, no focal deficits noted [...] is an appropriate candidate for the procedure. Wilile Lambert MD Documented By: Willie Lambert MD 07/01/241405 Signed By: <Electronically signed by Willie Lambert MD> 07/01/24 1406 [facility] Work Phone: History general Narrative - Reported* Type Description Date Medical History anxiety and depression Medical History bipolar disorder Surgical History T&A 2016? Surgical History bladder stretched 2014 Surgical History Natural childbirth 2018 Hospitalization History see above Hospitalization History psychiatric 3-day stay 2 016 Hospitalization History Childbirth 2018 [place] [facility] Other History general Narrative - ReportedNort Raptr Other Hospital course Narrative No data available for this section [facility] Additional Instructions DISCHARGE INSTRUCTIONS [...] NOT operate machinery such as power tools, [employer] Entertainmentn mowers, snow blowers, sewing machines, etc. for [...] problems. -Follow up with PCP. -Office number [phone].[facility] Work Phone: Progress note No data available for this section [facility] HospitalReason for visit Narrativediscuss meds for dental procedureNolafayette regional health center [facility] Other Summary Purpose Family History Relationship Condition [...] disease Unk nown mother Malignant neoplasm Unknown Relationship Condition Age at Onset Recorded Date/T radha grandparent Heart disease Unknown mother Malignant neoplasm of ovary Unknown grandparent Chronic obstructive pulmonary disease Unk nown Advance Directives Advance Directive Response Recorded Date/ Time Advance Directives No April 06 2:41pm Advance Directive Response Recorded Date/ Time Advance Directives No April 06 1:41pm Reason for Referral Reason * 03/14 consult and treat; [facility] Diagnosis 1 Acne, unspecified ac ne type (L70.9) Referral Organization [facility] [place] Referring Provider First Name Shaun Referring Provider Last Name Traci Referring Provider Specialty Family Prac [place] Referred Organization [facility] Referred Address [address] [facility],[place],[address] Referred Provider Specialty Dermatology Referral Priority Routine General Notes [facility] 023 11:32:52 AM >Received today and waiting for office notes to be locked before sending referral [facility] 03/07/2023 03:46:26 PM >Office notes locked. [facility] request us to fill out their form and fax to them. They will review the referral and call patient to schedule them. Referral was fax Clinical Notes Office [phone] Reason *Waiting for appt consult and treat Diagnosis 1 Coccyx pain (M53.3) Referral Organization [facility] [place] Referring Provider First Name Shaun Referring Provider Last Name Traci Referring Provider Specialty Family Prac [place] Referred Organization [facility] [place] Referred Provider Rell Marinelli Referred Address [address] [place],[address] Referred Provider Specialty Pain Medicin e Referral Priority Routine General Notes [facility] 023 08:18:19 AM >Received today and sent P2P Reason 02/02/22 @ 11:30am consult and treat марина ; anxiety with depression BPD PTSD Diagnosis 1 Anxiety with depress ion (F41.8) Diagnosis 2 Borderline personali ty disorder (F60.3) Diagnosis 3 PTSD (post-traumatic stress disorder) (F43.10) Referral Organization [facility] Referring Provider First Name Shaun Referring Provider Last Name Traci Referring Provider Specialty [facility] Prac [place] [facility] Referred Address [address] [place], [place],[address] Referred Provider Specialty Psychiatry Referral Priority Routine Referral Appointment Date 2022-02-02 General Notes Jacqueline Brooks 2021 02:52:37 PM >referral printed and faxed to [phone] along with OV notes from 09/26/2021, 12/15/2021, 01/19/2022, and TE from 01/19/2022 Attpushpa Farr with a note to be put on cancellation list. Abbey Parikh 01/25/2022 06:53:47 AM >OK, thank you Jacqueline for the update. Will follow up on this one in a few days Abbey Parikh 01/27/2022 07:32:28 AM >Fax letter for appt update Jl Abbey Underwood 01/27/2022 12:23:21 PM >Received letter back with appt Reason *FU 12/26 consutl and treat Diagnosis 1 Abnormal mammogram ( R92.8) Diagnosis 2 Mass of left breast, unspecified quadrant (N63.20) Diagnosis 3 Nipple discharge (N6 4.52) Referral Organization [facility] Referring Provider First Name Shaun Referring Provider Last Name Traci Referring Provider Specialty [facility] austin Referred Organization [facility] Referred Provider Denys Pearson Referred Address ,[place], [place],[address] Referred Provider Specialty Surgery Referral Priority Routine General Notes Abbey Parikh 022 02:15:28 PM >Received todayAbbey Parikh 12/16/2021 07:54:15 AM >Waiting for office notes to be locked before sending referralJohn [facility] 12/19/2021 01:26:07 PM >: [facility] office request us to fax or send referral P2P and the office will review the referral and will call patient to schedule. Referral was sent P2P Reason consult and [place] at ; anxiety hearing voices/sounds Diagnosis 1 Anxiety (F41.9) Diagnosis 2 Hearing voices (R44. 0) Referral Organization [facility] [place] Referring Provider First Name Shaun Referring Provider Last Name Traci Referring Provider Specialty Family Prac [place] Referred Organization Unknown Facility Referred Provider Specialty Psychiatry Referral Priority Routine General Notes Jacqueline Brooks 2020 01:12:01 PM > per k- NOT [facility] counseling and recovery- Needs seen by a psychiatrist group. Willing to go to [place]Jl Abbey Underwood 09/26/2021 01:59:20 PM >Reviewed a Dr. James Cosme MD. That is in [place] but goes to [place]. Will fax referral there and patient can choose which office to go to when they call her. Will fax once office notes is locked Clinical Notes Office [phone] Chief Complaint and Reason for Visit [...] Dyspepsia Hemorrhoids Irritable bowel syndrome with diarrhea Chief Complaint 6 month follow up 2 month follow up /IBS w/ diarrhea Reason for Visit Dyspepsia Hemorrhoids Irritable bowel syndrome with diarrhea Dyspepsia Dysphagia Hemorrhoids Irritable bowel syndrome with diarrhea Nausea Chief Complaint 2 month follow up /I BS w/ diarrhea Early Satiety / Dysphagia Early Satiety / Dysphagia 4 wk f/u post EGD / dysphagia Reason for Visit Dyspepsia Dysphagia Hemorrhoids Irritable bowel syndrome with diarrhea Nausea Dysphagia Chief Complaint 2 month follow up /I BS w/ diarrhea Early Satiety / Dysphagia Early Satiety / Dysphagia 4 wk f/u post EGD / dysphagia Reason for Visit Dyspepsia Dysphagia Hemorrhoids Irritable bowel syndrome with diarrhea Nausea Dyspepsia Dysphagia Chief Complaint Admit Date 2 month follow up /IBS w/ [facility] 20[facility] 1:28pm Early Satiety / Dysphagia June 11:58am Early Satiety / Dysphagia June 2:06pm 4 wk f/u post EGD / dysphagia July 312023 12:57pm G47.9 K58.0 E55.9 F41.8 E78.5 G47.00 L70 .9 August 05, 2024 8:57am review labs August 26, 2024 1:26pm Reason for Visit Admit Date Dyspepsia June 16, 2024 1:28pm Dysphagia June 16, 2024 1:28pm Hemorrhoids June 16, 2024 1:28pm Irritable bowel syndrome with diarrhea [facility] 20[facility] 1:28pm Nausea June 16, 2024 1:28pm Dyspepsia July 31, 2024 1 2:57pm Dysphagia July 31, 2024 1 2:57pm Anxiety with depression August 26, 2 024 1:26pm Frequent headaches August 26, 2024 1:26pm Hyperlipidemia August 26, 2024 1:26pm Irritable bowel syndrome with diarrhea N ovember 2023 1:26pm Chief Complaint 6 month follow up 2 month follow up /IBS w/ diarrhea Early Satiety / Dysphagia Early Satiety / Dysphagia Reason for Visit Dyspepsia Hemorrhoids Irritable bowel syndrome with diarrhea Dyspepsia Dysphagia Hemorrhoids Irritable bowel syndrome with diarrhea Nausea Chief Complaint Admit Date review labs August 26, 2024 1:26pm 3 month follow up November 11, 2024 1 :54pm Reason for Visit Admit Date Anxiety with depression August 26, 2 024 1:26pm Frequent headaches August 26, 2024 1:26pm Hyperlipidemia August 26, 2024 1:26pm Irritable bowel syndrome with diarrhea N ovember 2023 1:26pm Dyspepsia November 11, 2024 1 :54pm Dysphagia November 11, 2024 1 :54pm Chief Complaint Admit Date 3 month follow up November 11, 2024 1 :54pm 3 mo f/u December 23, 2024 12: 23pm Reason for Visit Admit Date Anxiety November 11, 2024 1 :54pm Dyspepsia November 11, 2024 1 :54pm GERD (gastroesophageal reflux disease) F ebruary 2024 1:54pm Hemorrhoids November 11, 2024 1 :54pm Dyspepsia December 23, 2024 12: 23pm Frequent headaches December 23, 2024 12: 23pm Vaginal yeast infection December 23, 2024 12:23pm Additional Source Comments INFORMATION SOURCE (unrecogn ized section and content) DATE CREATED AUTHOR 10/30/2020 [employer] DATE CREATED AUTHOR AUTHOR'S ORGANIZ ATION 08/17/2022 [facility] DATE CREATED AUTHOR AUTHOR'S ORGANIZ ATION 07/11/2023 [facility] DATE CREATED AUTHOR AUTHOR'S ORGANIZ ATION 07/12/2024 [facility] EPIC DATE CREATED AUTHOR AUTHOR'S ORGANIZ ATION 08/17/2024 [facility] REASON FOR VISIT (unrecogniz ed section and content) Reason Comments [facility] Visit Care Team (unrecognized sect ion and content) Team Status: Active Member Role Status Dates Shaun Aviles DO Primary Care Provider Active Team Status: Inactive Member Role Status Dates Shaun Aviles DO Primary Care Provider Active Sta rt: June 16, 2024 End: June 16, 2024 Lj Stanton APRN Attending Provider Active Start: June 16, 2024 End: June 16, 2024 Team Status: Inactive Member Role Status Dates Shaun Aviles DO Primary Care Provider Active Sta rt: July 01, 2024 End: July 01, 2024 Willie Lambert MD Attending Provider Active S tart: July 01, 2024 End: July 01, 2024 Team Status: Active Member Role Status Dates Shaun Aviles DO Primary Care Provider Active Sta rt: July 01, 2024 Willie Lambert MD Attending Provider, Other Provider Active Start: July 01, 2024 Team Status: Inactive Member Role Status Dates Shaun Aviles DO Primary Care Provider Active Sta rt: July 31, 2024 End: July 31, 2024 Willie Lambert MD Attending Provider Active S tart: July 31, 2024 End: July 31, 2024 Team Status: Inactive Member Role Status Dates Shaun Aviles , DO Primary Care Provide r, Attending Provider Active Start: August 05, 2024 End: August 05, 2024 Team Status: Inactive Member Role Status Dates Shaun Aviles , DO Primary Care Provide r, Attending Provider Active Start: August 26, 2024 End: August 26, 2024 Team Status: Active Member Role Status Dates Shaun Aviles , DO Primary Care Provider Active Sta rt: May 18, 2024 Kelly Quiroga PA-C Attending Provider Active Start : May 18, 2024 Team Status: Active Member Role Status Dates Shaun Aviles , DO Primary Care Provider Active Sta rt: May 19, 2024 Ines Ojeda MD Attending Provider Active St art: May 19, 2024 Team Status: Inactive Member Role Status Dates Shaun Aviles , DO Primary Care Provider Active Denysadam Pearson , DO Attending Provider Active Ghanshyam Nieto Referring Provider Active Team Status: Inactive Member Role Status Dates Denys Pearson , DO Attending Provider Active Shaun Aviles , DO Primary Care Provider Active Team Status: Inactive Member Role Status Dates Shaun Aviles , DO Primary Care Provider Active Denysadam Pearson , DO Attending Provider Active Team Status: Inactive Member Role Status Dates Shaun Aviles , DO Primary Care Provider, Attending Provi zuly Active Team Status: Inactive Member Role Status Dates Shaun Aviles , DO Primary Care Provider Active Lj Stanton APRN Attending Provider Active Team Status: Inactive Member Role Status Dates Shaun Aviles , DO Primary Care Provider Active Willie Lambert MD Attending Provider Active Team Status: Inactive Member Role Status Dates Lj Stanton APRN Attending Provider Active Start: October 16, 2023 End: October 16, 2023 Team Status: Inactive Member Role Status Dates Shaun Aviles , DO Primary Care Provider Active Sta rt: [...] April 15, 2024 End: April 15, 2024 Computer Forwarding System Markup Clerk Relationship Specialty Start Date End Date Shaun Aviles MD [facility] [place] [id number] PCP - General 05/09/23 Team Status: Inactive Member Role Status Dates Shaun Aviles DO Primary Care Provider Active Sta rt: November 11, 2024 End: November 11, 2024 Lj Stanton APRN Attending Provider Active Start: November 11, 2024 End: November 11, 2024 Team Status: Inactive Member Role Status Dates Shaun Aviles DO Primary Care Provide r, Attending Provider Active Start: December 23, 2024 End: December 23, 2024 Computer Forwarding System Markup Clerk Relationship Specialty Start Date End Date Shaun Aviles MD [facility] [place] [id number] PCP - General 05/09/23 Computer Forwarding System Markup Clerk Relationship Specialty Start Date End Date Shaun Aviles MD [facility] [place] [id number] PCP - General 05/09/23 Goals (unrecognized section and content) Goals may [...] BE BASED ON THE PRIMARY CLINICAL RECORDS. [facility] provides no warranty or guarantee of the accuracy or completeness of information in this document.
[2025-01-09 11:10] LABS: Age Gdln ACOG Testing Note (.); IGP, rfx Aptima HPV ASCU Note (.)
== END 2025-01-05 20:46 | disposition home or self-care (01) ==
LOC: LAB 20:45
PROVIDERS: PCP Family Medicine; Visit Provider Obstetrics & Gynecology
DX: Z01.419 Encounter for gynecological examination (general) (routine) without abnormal findings (principal)
CPT/HCPCS: 88175

== ENCOUNTER 2025-05-03 12:56 | Emergency (ER) | payer OTHER, SELFPAY ==
[2025-05-03 13:02] VITALS: BP 125/76; PULSE 107; TEMP 36.9; O2SAT 100; BMI 22.5
--- OUTSIDE RECORDS SUMMARY | 2025-05-03 13:14 | XMS_ITS | CCD ---
Author Organization [facility] Care Team Providers Care Rn Midwife Name Role Phone PROVIDER, UNKNOWN Admitting Unavailable PATIENT, SELF Referring Unavailable BELKYS CARABALLO Attending Unavailable Shaun Aviles Unavailable SHWETA GONZALEZ Primary Care Physician Unavailab DO Denys Camejo Attending Provider [phone] DO Shaun Aviles Primary Care Provider [phone] Ghanshyam Nieto Referring Provider [phone] TRACI, DR DUNN Primary Care Unavailable EMILIA, [...] Consulting Unavailable EMILIA, DR CHACON Attending Unavailable ADACHRISTIANOKYLE Consulting Unavailable SHARPJESSICALYLA Consulting Unavailable GEMBUSRONITEL Consulting Unavailable MISC, DR [...] OJEDA Admitting Unavailable INES OJEDA Consulting Unavailable ZIEBER, DR ILENE Myers Consulting Unavailable KUNS, DR DUNN Primary Care Unavailable HAY, DR MANJARREZ Attending Unavailable HAY, DR MANJARREZ Admitting Unavailable GRECHRYAN, JUANJO VELOZ Consulting Unavailable HAY, DR MANJARREZ Consulting Unavailable KUNS, DR DNUN Attending Unavailable KUNS, DR DUNN Admitting Unavailable [...] Consulting Unavailable Kuns, Shaun Primary Care Provider DO Denys Pearson Attending Provider Nicoláss, DO Shaun Primary Care Provider Michel, DO Mcfarlane Attending Provider Nicoláss, DO Dunn Attending Provider Rell Marinelli Unavailable Lj Stanton Unavailable Mirna Mcmullen Attending Unavailable Nicoláss, DO Shaun Primary Care Provider [phone] Kuns, DO Dunn Attending Provider Nicoláss, DO Shaun Primary Care Provider Nicoláss, DO Dunn Attending Provider ERIKA Stanton Attending Provider MD Willie Lambert Attending Provider Willie Lambert Unavailable Traci, DO Dunn Primary Care Provider [phone] MD Gail Lawrence Attending Provider DO Shaun Aviles Attending Provider Nicoláss, DO Dunn Primary Care Provider Shaun Aviles MD Primary Care Provider Traci, DO Shaun Primary Care Provider [phone] MD Willie Lambert Attending Provider DO Shaun Aviles Attending Provider [phone] Shaun Aviles DO Primary Care Provider Willie Lambert MD Attending Provider [phone] Shaun Aviles DO Attending Provider [phone] GHANSHYAM NIETO Attending Unavailable CASSANDRA GONZALEZ Attending Unavailable Shaun Aviles DO Primary Care Provider Shaun Aviles DO Attending Provider Shaun Aviles Primary Care Unavailable Willie Lambert Admitting Unavailable Willie Lambert Attending Unavailable Shaun Aviles Admitting Unavailable Shaun Aviles Primary Care Unavailable Shaun Aviles Attending Unavailable Shaun Aviles Admitting Unavailable Traci, Shaun Primary Care Unavailable Shaun Aviles Attending Unavailable Allergies Allergy Classification Reported Allergen(s) Allergy Type Date of Onset Reaction(s) Facility Latex (1 source) Latex Substance Allergy 04-15-20 24 Rash [facility] NSAIDs (1 source) Ibuprofen Drug Allergy 04-15-20 24 Diarrhea, tongue sores [facility] Quinolones (antibiotic) (1 source) Ciprofloxacin Drug Allergy 04-15-20 24 phsychosis [facility] Sulfonamides (antibiotic) (2 sources) Sulfacetamide Drug Allergy 04-15-20 24 hives [facility] (20 sources) Ibuprofen; Translations: [IBUPROFEN] Drug Allergy 09-06-20 15 Hives, Unknown, Other [facility] (20 sources) Latex; Translations: [LATEX] Propensity to adverse reactions to drug (disorder) 09-06-20 15 Rash [facility] Repository (7 sources) Sulfonamides (Antibiotic); Translations: [SULFA ANTIBIOTICS] Propensity to adverse reactions to drug (disorder) 09-06-20 15 Hives, Unknown [facility] (20 sources) Sulfacetamide Drug Allergy 08-02-20 hives, Unknown [facility] (19 sources) Sulfonamides (Antibiotic); Translations: [Sulfa (Sulfonamide Antibiotics)] Allergy to substance 04-28-20 Unknown Reaction, Hives [facility] (2 sources) Adhesive agent Drug allergy (disorder) [facility] Repository (3 sources) Ibuprofen; Translations: [Motrin] Drug Allergy [facility] (2 sources) Sulfonamides (Antibiotic) Drug allergy (disorder) [facility] (2 sources) Sulfonamides (Antibiotic); Translations: [sulfa drugs] Drug allergy Urticaria (disorder) [facility] (20 sources) Ciprofloxacin Drug Allergy 07-23-20 phsychosis [facility] Comment on above: Onset Date: 07/23/20 (1 source) Ciprofloxacin Drug Allergy 03-16-20 [facility] Repository Medications Current Medications Medication Drug Class(es) Dates Sig (Normalized) Sig (Original) acetaminophen 325 mg / oxyCODONE hydrochloride 5 mg oral tablet (1 source) Opioid Agonist Start: 07-01-2023 Percocet 5 mg-325 mg oral tablet 1 tab(s), Oral, q6hr, 5 tab(s), Refill(s) 0 Start Date: 07/01/23 Status: Ordered ALPRAZolam 1 mg oral tablet (20 sources) Benzodiazepine Start: 08-21-2023 End: 07-31-2024 Start: 07-26-2023 take 1 tablet by mamie [...] day(s), # 12 tab(s), Refills(s) 0, Pharmacy: [id number], 160, cm, 04/28/22 16:08:00 [...] 10 days. 20 tablet 07/10/2024 07/20/2024 Active amoxicillin 875 mg / clavulanate 125 mg oral tablet (2 sources) Penicillin-class Antibacterial Start: 03-16-2025 take 1 tablet by mouth twice daily {21 (desogestrel 0.15 MG / ethinyl estradiol 0.03 MG Oral Tablet) / 7 (inert ingredients 1 MG Oral Tablet) } Pack [Apri 28 Day] (4 sources) Progestin, Estrogen take 1 tablet by mouth every twenty-four hours Apri 0.15-30 MG-MCG 1 tablet Orally Once a day Active eletriptan 40 mg oral tablet (2 sources) Serotonin-1b and Serotonin-1d Receptor Agonist Start: 03-16-2025 take 1 tablet by mouth every two hours fluconazole 150 mg oral tablet (3 sources) Azole Antifungal Start: 12-23-2024 hydrOXYzine hydrochloride 50 mg oral tablet (2 sources) Antihistamine Start: 03-16-2025 take 1 tablet by mouth once daily at bedtime lumateperone 42 mg oral capsule (20 sources) Start: 08-21-2023 take 1 capsule by mouth once daily at bedtime Lumateperone Tosylate (CAPLYTA PO) (6 sources) Lumateperone Tosylate (CAPLYTA PO) Caplyta Active Lumateperone Tosylate (Caplyta) 10.5 MG capsule (6 sources) Lumateperone Tosylate (Caplyta) 10.5 MG capsule Caplyta Active Lili Root 500 MG (5 sources) Lili Root 500 MG as directed Orally Active metFORMIN hydrochloride 500 mg oral tablet (6 sources) Biguanide take 1 tablet by mouth every twenty-four hours metFORMIN HCl 500 MG 1 tablet with a meal Orally Once a day Active mirtazapine 45 mg oral tablet (20 sources) Start: 08-26-2024 Start: 01-25-2024 End: 08-26-2024 take 1 tablet [...] End: 01-25-2024 take 1 tablet by mouth once daily at bedtime Mirtazapine 45 mg tablet Discontinued 45 MG PO Daily at bedtime [...] omeprazole 40 mg delayed release oral capsule (15 sources) Proton Pump Inhibitor Start: 07-01-2024 End: 07-31-2024 ondansetron 4 mg disintegrating oral tablet (17 sources) Serotonin-3 Receptor Antagonist Start: 12-06-2023 take 1 tablet by mouth every six hours as needed for nausea and vomiting take 1 tablet by mamie th three [...] 3 days. 18 tablet 07/10/2024 07/18/2024 Active Zofran ODT 4 mg Tab-Dis (1 source) Start: 07-01-2023 take 1 tablet by mouth every eight hours Zofran ODT 4 mg Tab-Dis 4 mg = 1 tab(s), Oral, q8hr, # 10 tab(s), Refills(s) 0, Pharmacy: [id number], 160, cm, 07/01/23 17:58:00 [...] 01/05/2025 Discontinued biotin 10 mg oral capsule (11 sources) Start: 01-29-2024 End: 11-11-2024 take 2 capsules by mouth once daily Biotin 10,000 mcg capsule Discontinued 07067 MCG PO Daily January 29, 2024 12:00am November 11, 2024 2:57pm Start: 01-29-2024 take 70125 ug by mouth once da ivonne Biotin Active 22352 MCG PO Daily January 29, 2024 12:00am dicyclomine hydrochloride 20 mg oral tablet (12 sources) Anticholinergic Start: 01-25-2024 End: 06-16-2024 take [...] day Not-Taking ISOtretinoin 20 mg oral capsule (11 sources) Retinoid Start: 01-29-20 End: 06-16-20 take 1 capsule by mouth once daily Isotretinoin (Accutane) 20 mg capsule Discontinued PO Daily January 29, 2024 12:00am June 16, 2024 1:35pm lamoTRIgine 25 mg oral tablet (11 sources) Mood Stabilizer, Anti-epileptic Agent Start: 08-26-20 End: 03-16-20 Lamotrigine 25 mg tablet Discontinued 50 MG PO August 26, 2024 1:00am March 16, 2025 12:37pm take 1 tablet by mamie th once daily at bedtime LaMICtal 25 MG 1 tablets Orally QHS Not-Taking pantoprazole 40 mg delayed release oral tablet (16 sources) Proton Pump Inhibitor Start: 04-15-2024 End: 07-01-2024 take 1 tablet by mouth once daily Pantoprazole 40 mg tablet,delayed release (DR/EC) Discontinued 40 MG PO Daily April 15, 2024 12:00am July 01, 2024 2:19pm SUMAtriptan 100 mg oral tablet (8 sources) Serotonin-1b and Serotonin-1d Receptor Agonist Start: 12-23-2024 End: 03-16-2025 take 1 tablet by mouth every two hours Sumatriptan Succinate 100 mg tablet Discontinued 0 PO .COMPLEX December 23, 2024 12:00am March 16, 2025 12:59pm take 1 tab at onset of headache; [...] hrs; max = 4 tabs/24 hr PO tiZANidine 4 mg oral tablet (6 sources) Central alpha-2 Adrenergic Agonist Start: 03-28-2022 Zanaflex 4 MG 1-2 tablet as needed Orally at bedtime Mar, Not-Taking topiramate 50 mg oral tablet (11 sources) Start: 01-29-2024 End: 04-15-2024 take 1 [...] Classification Problem Date Documented Da te Episodic/Chronic Anxiety disorders (20 sources) Mixed anxiety and depressive disorder; Translations: [Other specified anxiety disorders] Onset: 1 Resolved: 2 Chronic Contraceptive and procreative management (2 sources) Tubal ligation status; Translations: [Encounter for sterilization] Onset: 2 Episodic Deficiency and other anemia (20 sources) Anemia; Translations: [Anemia, unspecified] Episodic Disorders of lipid metabolism (13 sources) Hyperlipidemia; Translations: [Hyperlipidemia, unspecified] 01-29-2024 Chronic Disorders of teeth and jaw (2 sources) Infection of tooth; Translations: [Periapical abscess without sinus] 07-10-2024 Episodic Esophageal disorders (5 sources) Gastroesophageal reflux disease; Translations: [Gastro-esophageal reflux disease without esophagitis] 11-11-2024 Chronic Gastrointestinal hemorrhage (8 sources) Rectal hemorrhage; Translations: [Hemorrhage of anus and rectum] Episodic Headache; including migraine (11 sources) Frequent headache; Translations: [Frequent headaches] 08-26-2024 Episodic Headache; including migraine (1 source) Headache; including migraine; Translations: [Headache, unspecified] Onset: 5 Hemorrhoids (19 sources) Hemorrhoids; Translations: [Unspecified hemorrhoids] 04-15-2024 Episodic Intestinal infection (1 source) Clostridium difficile diarrhea 06-02-2022 Episodic Comment on above: Problem added second flakito to documenting Active C-Diff. Lymphadenitis (5 sources) Lymphadenopathy; Translations: [Enlarged lymph nodes, unspecified] Onset: 5 03-16-2025 Episodic Menstrual disorders (6 sources) Excessive and frequent menstruation with irregular cycle; Translations: [Dysmenorrhea, unspecified] Onset: 2 Chronic Mood disorders (1 source) Major depressive disorder, single episode, unspecified; Translations: [CRESENCIO DEPRESS D/O SINGLE EPIS UNS] Onset: 2 Chronic Mycoses (2 sources) Candidiasis of vagina; Translations: [Vaginal yeast infection] 12-23-2024 Episodic Nausea and vomiting (15 sources) Nausea; Translations: [Nausea] Onset: 5 06-16-2024 Episodic Nonmalignant breast conditions (20 sources) Discharge from nipple; Translations: [Nipple discharge] Onset: 2 Resolved: 2 Episodic Nutritional deficiencies (20 sources) Vitamin D deficiency; Translations: [Vitamin D deficiency, unspecified] Onset: 2 Resolved: 2 Chronic Other aftercare (1 source) 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; Translations: [OTH SNF CURRENT DRUG THERAPY] Onset: 2 Episodic Other and unspecified benign neoplasm (10 sources) Benign neoplasm of left breast; Translations: [Benign neoplasm of breast] Episodic Other and unspecified benign neoplasm (4 sources) Fibroadenoma of breast; Translations: [Benign neoplasm of left breast] 01-29-2024 Episodic Other gastrointestinal disorders (11 sources) Irritable bowel syndrome with diarrhea; Translations: [Irritable bowel syndrome with diarrhea] 01-29-2024 Chronic Other gastrointestinal disorders (11 sources) Irritable bowel syndrome; Translations: [Irritable bowel [...] (1 source) Heartburn Episodic Other gastrointestinal disorders (16 sources) Dysphagia; Translations: [Dysphagia, unspecified] 06-16-2024 Episodic [...] STATES] Onset: 2 Episodic Residual codes; unclassified (11 sources) Difficulty sleeping ; Translations: [Sleep disorder, unspecified] 01-29-2024 Episodic Residual codes; unclassified (2 sources) Sleep disorder, unspecified; Translations: [Sleep disturbance, unspecified] 01-29-2024 Episodic Schizophrenia and other psychotic disorders (20 sources) Schizophrenia; Translations: [Schizophrenia, unspecified] Chronic Spondylosis; intervertebral disc disorders; other back problems (20 sources) Neck pain; Translations: [Cervicalgia] Onset: 2 Resolved: 2 Episodic Substance-related disorders (5 sources) Smoker; Translations: [Nicotine dependence] 06-02-2022 Chronic Comment on above: Added secondary to d ocumentation in Social History. Unclassified (1 source) CONTACT W/AND (SUSP) EXPOS COVID-19; Translations: [CONTACT W/AND (SUSP) EXPOS COVID-19] Onset: 2 Unclassified (1 source) Pyuria; Translations: [PYURIA] Onset: 2 Past or Other Problems Problem Classification Problem Date Documented Da te Episodic/Chronic Abdominal pain (20 sources) Pelvic and perineal pain; Translations: [Pelvic and perineal pain] Onset: 07-03-2022 Episodic Deficiency and other anemia (3 sources) Anemia, unspecified; Translations: [ANEMIA UNSPECIFIED] Onset: 09-26-2021 Resolved: 11-07-2021 Episodic Fluid and electrolyte disorders (2 sources) Dehydration; Translations: [Hypokalemia] Onset: 11-25-2021 Episodic Immunizations and screening for infectious disease (6 sources) Encounter for screening for infections with a predominantly sexual mode of transmission; Translations: [Encounter for screening for human papillomavirus (HPV)] Onset: 12-28-2021 Episodic Other aftercare (6 sources) Patient encounter status; Translations: [Encounter for [...] Test Name Value Interpretation Reference Range Facility MR head/brain wo conon 04-21 MR head/brain wo con [facility] [place] [address] [place] [id number] MRI Report Signed Patient: Brian Sullivan MR#: [id number] : 1995 Acct:[id number] Age/Sex: 29 / F ADM Date: 04/21/25 [facility] Attending Dr: Shaun Aviles DO Copies to: Shaun Aviles DO Ordering Provider: Shaun Aviles DO Date of Service: 04/21/25 MR/MR head/brain wo con: R51.9 - Headache, unspecified EXAMINATION: MRI OF THE BRAIN WITHOUT CONTRAST CLINICAL HISTORY: Occipital/orbital headaches, nausea, dizziness and memory loss for several years, symptoms worsening COMPARISON: None TECHNIQUE: Multiecho, multiplanar imaging of the brain was performed without enhancement. FINDINGS: No restricted diffusion to suggest acute territorial infarct. Ventricles and sulci are normal in size and configuration for the patient's age. No shift of midline structure basal cisterns are patent. Major intracranial arterial vascular flow was preserved. 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 Cerebellar tonsils maintain a normal rounded configuration. Diminished pontomedullary distance measuring 4 mm. There is abnormal angulation at the level of the mid brain pontine angle measuring 34 degrees. There is slight prominence of the optic nerve sheaths possibly related to motion. Partially empty sella turcica. No abnormal GRE signal. Minor sinus mucosal thickening. MR/MR head/brain wo con IMPRESSION: Negative for acute intracranial process by MRI. There are some noncontrast MRI findings which may suggest component of intracranial hypotension, consider postcontrast imaging. Impression dictated by: Keny Zaragoza M.D. 04/21/2025 1:14 PM Dictation Location: [place] [address] Transcribed By: [facility] 04/21/25 1314 Dictated By: Keny Zaragoza MD 04/21/25 1304 Signed By: 04/21/25 1314 Normal [facility] Magnetic resonance imaging r eportOrdered By: Keny Zaragoza on 04-21-2025 Study report [facility] [place] [address] [place] [address] MRI Report Signed Patient: Brian Sullivan MR#: [id number] : 1995 Acct:[id number] Age/Sex: 29 / F ADM Date: 5 Loc: [facility]: [facility] Attending Dr: Shaun Aviles DO Copies to: Shaun Aviles DO~ Ordering Provider: Shaun Aviles DO Date of Service: 04/21/25 MR/MR head/brain wo con: R51.9 - Headache, unspecified EXAMINATION: MRI OF THE BRAIN WITHOUT CONTRAST CLINICAL HISTORY: Occipital/orbital headaches, nausea, dizziness and memory loss for several years, symptoms worsening COMPARISON: None TECHNIQUE: Multiecho, multiplanar imaging of the brain was performed without enhancement. FINDINGS: No restricted diffusion to suggest acute territorial infarct. Ventricles and sulci are normal in size and configuration for the patient's age. No shift of midline structure basal cisterns are patent. Major intracranial arterial vascular flow was preserved. 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 Cerebellar tonsils maintain a normal rounded configuration. Diminished pontomedullary distance measuring 4 mm. There is abnormal angulation at the level of the mid brain pontine angle measuring 34 degrees. There is slight prominence of the optic nerve sheaths possibly related to motion. Partially empty sella turcica. No abnormal GRE signal. Minor sinus mucosal thickening. MR/MR head/brain wo con IMPRESSION: Negative for acute intracranial process by MRI. There are some noncontrast MRI findings which may suggest component of intracranial hypotension, consider postcontrast imaging. Impression dictated by: Keny Zaragoza M.D. 04/21/2025 1:14 PM Dictation Location: [place] [address] Transcribed By: [facility] 04/21/25 1314 Dictated By: Keny Zaragoza MD 04/21/25 1304 Signed By: 04/21/25 1314 [facility] Work Phone: IGP,APTIMA HPV,AGE GDLNon AGE GDLN ACOG TESTING Note . [facility] Comment on above: TESTS RESULT FLAG UN ITS REF RANGE LAB Clinician Provided Cytology Information Source.............Cervix;Endocervix No. of containers..01 ThinPrep Vial Age Algo ACOG Cecelia... FLAG LEGEND: L-Low Normal,H-High Normal,LL-Alert Low,HH-Alert High <-Panic Low,>-Panic High,A-Abnormal,AA-Critical Abnormal Performed at: 01 =G [facility] [address] Christal Eli MD, IGP, RFX APTIMA HPV ASCU Note . [facility] Comment on above: TESTS RESULT FLAG UN ITS REF RANGE LAB DIAGNOSIS: 02 NEGATIVE FOR INTRAEPITHELIAL LESION OR MALIGNANCY. THIS SPECIMEN WAS RESCREENED PART OF OUR DIRECTOR PROCESS IMPROVEMENT PROGRAM. Specimen adequacy: 02 Satisfactory for evaluation. Endocervical and/or squamous metaplastic cells (endocervical component) are present. Performed by: Clara Lane Loom Fixer Apprentice (ASCP) QC reviewed by: 02 Benita Wade, Loom Fixer Apprentice ([facility]) . 02 Note: Note 02 The Pap smear is a screening test designed to aid in the detection of premalignant and malignant conditions of the uterine cervix. It is not a diagnostic procedure and should not be used as the sole means of detecting cervical cancer. Both false-positive and false-negative reports do occur. Test Methodology: Note 02 This liquid based ThinPrep(R) pap test was screened with the use of an image guided system. . 02 The HPV DNA reflex criteria were not met with this specimen result therefore, no HPV testing was performed. FLAG LEGEND: L-Low Normal,H-High Normal,LL-Alert Low,HH-Alert High <-Panic Low,>-Panic High,A-Abnormal,AA-Critical Abnormal Performed at: [address] [address] Christal Eli MD, Performed at: = - [facility] [id number] Electrical Lineman: Christal Eli MD, Phone: [phone] Performed at: [facility] [id number] Electrical Lineman: Christal Eli MD, Phone: [phone] [facility] HCG ( test) Ql (U)o n 01-05-2025 Interpretation and review of laboratory results Normal [facility] Preg Test, Ur Negative Negative [facility] Human papilloma virus 16+18+ 31+33+35+39+45+51+52+56+58+59+66+68 DNA [Presence] in [place] 01-05-2025 HPV 16+18+31+33+35+39+45+51 +52+56+58+59+66+68 DNA Probe+sig amp Ql (Cvx) Human papilloma virus 16+18+31+33+35+39+45+ 51+52+56+58+59+66+68 DNA [Presence] in Cer . [facility] Comment on above: TESTS RESULT FLAG UN ITS REF RANGE LAB -DIAGNOSIS: 02 NEGATIVE FOR INTRAEPITHELIAL LESION OR MALIGNANCY. THIS SPECIMEN WAS RESCREENED PART OF OUR DIRECTOR PROCESS IMPROVEMENT PROGRAM.Specimen adequacy: 02 Satisfactory for evaluation. Endocervical and/or squamous metaplastic cells (endocervical component) are present.Performed by: Clara Lane, Loom Fixer Apprentice (ASC)QC reviewed by: Clara Wade, Loom Fixer Apprentice (ASCP). 02Note: Note 02 The Pap smear is a screening test designed to aid in the detection of premalignant and malignant conditions of the uterine cervix. It is not a diagnostic procedure and should not be used as the sole means of detecting cervical cancer. Both false-positive and false-negative reports do occur.Test Methodology: Note 02 This liquid based ThinPrep(R) pap test was screened with the use of an image guided system.. 02 The HPV DNA reflex criteria were not met with this specimen result therefore, no HPV testing was performed. -------- FLAG LEGEND: L-Low Normal,H-High Normal,LL-Alert Low,HH-Alert High <-Panic Low,>-Panic High,A-Abnormal,AA-Critical Abnormal ------Performed at:02 WB [facility] [address] [place] [address] Christal Eli MD, Oswhtmgqp at: =G - [facility] [address] [place], [place] [id number] Director: Christal Eli MD, Phone: [phone] at: WB - [facility] [address] [id number] Director: Christal Eli MD, Phone: [phone] No Panel Informationon 01-05 Reference Lab Test Patient Age Note . [facility] Comment on above: TESTS RESULT FLAG UN ITS REF RANGE LAB - Clinician Provided Cytology Information Source.............Cervix;Endocervix No. of containers..01 ThinPrep VialAge Algo ACOG Cecelia... FLAG LEGEND: L-Low Normal,H-High Normal,LL-Alert Low,HH-Alert High <-Panic Low,>-Panic High,A-Abnormal,AA-Critical Abnormal ------Performed at:01 =G [facility] [address] [place] [address] Christal Eli MD, Alanine aminotransferase [En zymatic activity/volume] in Serum or PlasmaOrdered By: Shaun Aviles on 08-05-2024 ALT [Catalytic activity/Vol] 10 U/L Normal [facility] Comment on above: Performed By: #### L IPID, CMP, T4F, MARCIA, TSH3, [id number] #### [address] ALT [Catalytic activity/Vol] Alanine aminotransferase [Enzymatic activity/volume] in Serum or Plasma [facility] Albumin [Mass/volume] in Ser um or Plasma by Bromocresol green (BCG) dye binding methoOrdered By: Shaun Aviles on 08-05-2024 Albumin BCG dye [Mass/Vol] 4.3 g/dL 3.5-5.7 [facility] Albumin BCG dye [Mass/Vol] Albumin [Mass/volume] in Serum or Plasma by Bromocresol green (BCG) dye binding metho 3.5-5.7 [facility] Alkaline phosphatase [Enzyma tic activity/volume] in Serum or PlasmaOrdered By: Shaun Aviles on 08-05-2024 ALP [Catalytic activity/Vol] 111 U/L High [address] [place] [address] Comment on above: Performed By: #### L IPID, CMP, T4F, MARCIA, TSH3, [id number] #### [address] ALP [Catalytic activity/Vol] Alkaline phosphatase [Enzymatic activity/volume] in Serum or Plasma High 07 [place] [address] Aspartate aminotransferase [ Enzymatic activity/volume] in Serum or PlasmaOrdered By: Shaun Aviles on 08-05-2024 AST [Catalytic activity/Vol] 15 U/L Normal [facility] Comment on above: Performed By: #### L IPID, CMP, T4F, MARCIA, TSH3, [id number] #### [facility] [address] [place] [address] AST [Catalytic activity/Vol] Aspartate aminotransferase [Enzymatic activity/volume] in Serum or Plasma [facility] Automated basophil %Ordered By: Shaun Aviles on 08-05-2024 Basophils/100 WBC (Bld) 0.3 % Normal . [facility] Comment on above: Performed By: #### C BC #### [address] Automated basophil countOrde red By: Shaun Aviles on 08-05-2024 Basophils (Bld) [#/Vol] 0.0 10*3/uL Normal 0.0-0.2 [facility] Comment on above: Result Comment: PERF ORMED BY: [place] [address] PATHOLOGIST SOCKET PULLER ALBA SCHULTE M.D. Performed By: #### C BC #### [address] Automated blood monocyte cou ntOrdered By: Shaun Aviles on 08-05-2024 Monocytes (Bld) [#/Vol] 0.5 10*3/uL Normal 0.0-0.8 [facility] Comment on above: Performed By: #### C BC #### [address] Automated eosinophil %Ordere d By: Shaun Aviles on 08-05-2024 Eosinophils/100 WBC (Bld) 0.0 % Normal . [facility] Comment on above: Performed By: #### C BC #### [address] Automated eosinophil countOr dered By: Shaun Aviles on 08-05-2024 Eosinophils (Bld) [#/Vol] 0.0 10*3/uL Normal 0.0-0.45 [facility] Comment on above: Performed By: #### C BC #### [address] Automated monocyte %Ordered By: Shaun Aviles on 08-05-2024 Monocytes/100 WBC (Bld) 6.8 % Normal . [facility] Comment on above: Performed By: #### C BC #### [address] Automated neutrophil %Ordere d By: Shaun Aviles on 08-05-2024 Neutrophils/100 WBC (Bld) 68.8 % Normal . [facility] Comment on above: Performed By: #### C BC #### [address] Basophils Auto (Bld) [#/Vol] Ordered By: Shaun Aviles on 08-05-2024 Basophils (Bld) [#/Vol] Automated basoph il count 0.0-0.2 [facility] Basophils/100 WBC Auto (Bld) Ordered By: Shaun Aviles on 08-05-2024 Basophils/100 WBC (Bld) Automated basophil % . [facility] Bilirubin.total [Mass/volume ] in Serum or PlasmaOrdered By: Shaun Aviles on 08-05-2024 Bilirubin [Mass/Vol] 0.4 mg/dL Normal 0.3-1.0 [facility] Comment on above: Performed By: #### L IPID, CMP, T4F, MARCIA, TSH3, [id number] #### [address] Bilirubin [Mass/Vol] Bilirubin.total [Mass/volume] in Serum or Plasma 0.3-1.0 [facility] Calcium [Mass/volume] in Ser um or PlasmaOrdered By: Shaun Aviles on 08-05-2024 Calcium [Mass/Vol] 9.7 mg/dL Normal 8.6-10.3 [facility] Comment on above: Performed By: #### L IPID, CMP, T4F, MARCIA, TSH3, [id number] #### [place] [id number] [facility] Calcium [Mass/Vol] Calcium [Mass/volume ] in Serum or Plasma 8.6-10.3 [facility] Carbon dioxide, total [Moles /volume] in Serum or PlasmaOrdered By: Shaun Aviles on 08-05-2024 CO2 [Moles/Vol] 28.3 mmol/L Normal 21.0-31.0 [facility] Comment on above: Performed By: #### L IPID, CMP, T4F, MARCIA, TSH3, [id number] #### [facility] [address] [place] [id number] [facility] CO2 [Moles/Vol] Carbon dioxide, tota l [Moles/volume] in Serum or Plasma 21.0-31.0 [facility] Chloride [Moles/volume] in S kimo or PlasmaOrdered By: Shaun Aviles on 08-05-2024 Chloride [Moles/Vol] 105 mmol/L Normal 98-107 [facility] Comment on above: Performed By: #### L IPID, CMP, T4F, MARCIA, TSH3, [id number] #### [facility] [address] [place] [id number] [facility] Chloride [Moles/Vol] Chloride [Moles/volume] in Serum or Plasma 98-107 [facility] Cholesterol [Mass/volume] in Serum or PlasmaOrdered By: Shaun Aviles on 08-05-2024 Cholesterol [Mass/Vol] 153 mg/dL Normal 140-200 [facility] Comment on above: Chol less than 200 m g/dl low riskChol 201-239 mg/dl borderline riskChol 240 mg/dl and greater high risk Result Comment: Chol less than 200 mg/dl low risk Chol 201-239 mg/dl borderline risk Chol 240 mg/dl and greater high risk Performed By: #### L IPID, CMP, T4F, MARCIA, TSH3, [id number] #### [facility] [address] [place] [id number] [facility] Cholesterol [Mass/Vol] Cholesterol [Mass/volume] in Serum or Plasma 140-200 [facility] Comment on above: Chol less than 200 m g/dl low riskChol 201-239 mg/dl borderline riskChol 240 mg/dl and greater high risk Cholesterol in HDL [Mass/vol ume] in Serum or PlasmaOrdered By: Shaun Aviles on 08-05-2024 Cholesterol in HDL [Mass/Vol] Serum or plasma high density lipoprotein (HDL) cholesterol measurement 23- [facility] Comment on above: HDL CHOL ATP-III CLA SSIFICATION Cardiovascular RiskHDL > or equal to 60 mg/dL LOWHDL < 40 mg/dL HIGH Cholesterol in LDL Calc [Mas s/Vol]Ordered By: Shaun Aviles on 08-05-2024 Cholesterol in LDL [Mass/Vol] 92 mg/dL 0-100 [facility] Comment on above: LDL ATP III CLASSIFI CATIONLDL less than 100 mg/dL OptimalLDL 100-129 mg/dL Near or above optimalLDL 130-159 mg/dL Borderline highLDL 160-189 mg/dL HighLDL greater than 189 mg/dL Very high Cholesterol in LDL [Mass/Vol] Cholesterol in LDL [Mass/volume] in Serum or Plasma by calculation 0-100 [facility] Comment on above: LDL ATP III CLASSIFI CATIONLDL less than 100 mg/dL OptimalLDL 100-129 mg/dL Near or above optimalLDL 130-159 mg/dL Borderline highLDL 160-189 mg/dL HighLDL greater than 189 mg/dL Very high Cholesterol in VLDL Calc [Ma ss/Vol]Ordered By: Shaun Aviles on 08-05-2024 Cholesterol in VLDL [Mass/Vol] 15 mg/dL [facility] Cholesterol in VLDL [Mass/Vol] Cholesterol in VLDL [Mass/volume] in Serum or Plasma by calculation [facility] Complete Blood Count Auto Di ffon 08-05-2024 Mean Corpuscular HGB Conc 34.1 g/dL Normal 32.0-35.0 [facility] Comment on above: Performed By: #### C BC #### [address] NRBC% 0.1 /100{WBC} Normal 0-0.5 [facility] Comment on above: Performed By: #### C BC #### [facility] [address] [place] [address] Comprehensive Metabolic Pane harshal 08-05-2024 Albumin [Mass/Vol] 4.3 g/dL Normal 3.5-5.7 [facility] Comment on above: Performed By: #### L IPID, CMP, T4F, MARCIA, TSH3, [id number] #### [address] GFR/1.73 sq M.predicted MDRD (S/P/Bld) [Vol rate/Area] mL/min/{1.73_m2} Normal [facility] Comment on above: Performed By: #### L IPID, CMP, T4F, MARCIA, TSH3, [id number] #### [facility] [address] [place] [phone] [place] Cortisolon 08-05-2024 Cortisol 6.9 ug/dL Normal [facility] Comment on above: Result Comment: Refe rence range: AM 6 - 24 ug/dl PM <10 ug/dl [facility] restaurant general manager and method: LIYA UNICEL DXI, POLYCLONAL ANTIBODY CORTISOL ASSAY. Performed By: #### L IPID, CMP, T4F, MARCIA, TSH3, [id number] #### [facility] [address] [place] [phone] [place] Cortisol [Mass/volume] in Se rum or PlasmaOrdered By: Shaun Aviles on 08-05-2024 Cortisol [Mass/Vol] Random cortisol measurement [facility] Comment on above: [facility] restaurant general manager and method:LIYA UNICEL DXI, POLYCLONAL ANTIBODY CORTISOL ASSAY.Reference range: AM 6 - 24 ug/dl PM <10 ug/dl Creatinine [Mass/volume] in Serum or PlasmaOrdered By: Shaun Aviles on 08-05-2024 Creatinine [Mass/Vol] 0.69 mg/dL Normal 0.60-1.20 [facility] Comment on above: Performed By: #### L IPID, CMP, T4F, MARCIA, TSH3, [id number] #### [facility] [address] [place] [phone] [facility] Creatinine [Mass/Vol] Creatinine [Mass/volume] in Serum or Plasma 0.60-1.20 [facility] Eosinophils Auto (Bld) [#/Vo l]Ordered By: Shaun Aviles on 08-05-2024 Eosinophils (Bld) [#/Vol] Automated eosinophil count 0.0-0.45 [facility] Eosinophils/100 WBC Auto (Bl d)Ordered By: Shaun Aviles on 08-05-2024 Eosinophils/100 WBC (Bld) Automated eosinophil % . [facility] Erythrocyte distribution wid th Auto (RBC) [Ratio]Ordered By: Shaun Aviles on 08-05-2024 Erythrocyte distribution width (RBC) [Ratio] Erythrocyte distribution width [Ratio] by Automated count 11.9-15.3 [facility] Erythrocyte distribution wid th [Ratio] by Automated countOrdered By: Shaun Aviles on 08-05-2024 Erythrocyte distribution width (RBC) [Ratio] 13.8 % Normal 11.9-15.3 [facility] Comment on above: Performed By: #### C BC #### [facility] [address] Erythrocytes [#/volume] in B lood by Automated countOrdered By: Shaun Aviles on 08-05-2024 RBC (Bld) [#/Vol] 4.76 10*6/uL Normal 3.60-5.00 [facility] Comment on above: Performed By: #### C BC #### [address] Globulin Calc (S) [Mass/Vol] Ordered By: Shaun Aviles on 08-05-2024 Globulin (S) [Mass/Vol] Serum globulin measurement by calculation (mass/volume) [facility] Glucose [Mass/volume] in Ser um or PlasmaOrdered By: Shaun Aviles on 08-05-2024 Glucose [Mass/Vol] 90 mg/dL Normal 70-100 [facility] Comment on above: ADA recommended refe rence rangeRandom Glucose Reference Range is dependent on time and content of last meal. Glucose of more than 200 mg/dL in a nonstressed, ambulatory subject supports the diagnosis of Diabetes Mellitus. Result Comment: [place] Glucose Reference Range is dependent on time and content of last meal. Glucose of more than 200 mg/dL in a nonstressed, ambulatory subject supports the diagnosis of Diabetes Mellitus. ADA recommended reference range Performed By: #### L IPID, CMP, T4F, MARCIA, TSH3, [id number] #### [facility] [address] Glucose [Mass/Vol] Glucose [Mass/volume ] in Serum or Plasma 70-100 [facility] Comment on above: ADA recommended refe rence rangeRandom Glucose Reference Range is dependent on time and content of last meal. Glucose of more than 200 mg/dL in a nonstressed, ambulatory subject supports the diagnosis of Diabetes Mellitus. Hematocrit Auto (Bld) [Volum e fraction]Ordered By: Shaun Aviles on 08-05-2024 Hematocrit (Bld) [Volume fraction] Hematocrit [Volume Fraction] of Blood by Automated count 34.0-46.4 [facility] Hematocrit [Volume Fraction] of Blood by Automated countOrdered By: Shaun Aviles on 08-05-2024 Hematocrit (Bld) [Volume fraction] 39.2 % Normal 34.0-46.4 [facility] Comment on above: Performed By: #### C BC #### [facility] [address] Hemoglobin [Mass/volume] in BloodOrdered By: Shaun Aviles on 08-05-2024 Hemoglobin (Bld) [Mass/Vol] 13.4 g/dL Normal 11.8-15.4 [facility] Comment on above: Performed By: #### C BC #### [facility] [address] [place] [address] Hemoglobin (Bld) [Mass/Vol] Hemoglobin [Mass/volume] in Blood 11.8-15.4 [facility] Leukocytes [#/volume] correc frieda for nucleated erythrocytes in Blood by Automated counOrdered By: Shaun Aviles on 08-05-2024 WBC corrected for nucl RBC Auto (Bld) [#/Vol] 7.5 10*3/uL 3.8-11.6 [facility] WBC corrected for nucl RBC Auto (Bld) [#/Vol] Leukocytes [#/volume] corrected for nucleated erythrocytes in Blood by Automated coun 3.8-11.6 [facility] Leukocytes [#/volume] in Blo od by Automated countOrdered By: Shaun Aviles on 08-05-2024 WBC (Bld) [#/Vol] 7.5 10*3/uL Normal 3.8-11.6 [facility] Comment on above: Performed By: #### C BC #### [address] Lipid Panelon 08-05-2024 LDL Cholesterol,Calculated 92 mg/dL Normal 0-100 [facility] Comment on above: Result Comment: LDL ATP III CLASSIFICATION LDL less than 100 mg/dL Optimal LDL 100-129 mg/dL Near or above optimal LDL 130-159 mg/dL Borderline high LDL 160-189 mg/dL High LDL greater than 189 mg/dL Very high Performed By: #### L IPID, CMP, T4F, MARCIA, TSH3, [id number] #### [facility] [address] Triglyceride w/Reflex 76 mg/dL Normal 0-149 [facility] Comment on above: Result Comment: TRIG ATP III CLASSIFICATION TRIG less than 150 mg/dL Normal TRIG 150-199 mg/dL Borderline high TRIG 200-500 mg/dL High TRIG greater than 500 mg/dL Very high Standard traceable to the Center for Disease Conrtrol and Prevention (CDC) test method. Performed By: #### L IPID, CMP, T4F, MARCIA, TSH3, [id number] #### [address] VLDL CHOLESTEROL 15 mg/dL Normal [facility] Comment on above: Performed By: #### L IPID, CMP, T4F, MARCIA, TSH3, [id number] #### [address] Lymphocytes Auto (Bld) [#/Vo l]Ordered By: Shaun Aviles on 08-05-2024 Lymphocytes (Bld) [#/Vol] Lymphocytes [#/volume] in Blood by Automated count 1.00-4.8 [facility] Lymphocytes [#/volume] in Bl ood by Automated countOrdered By: Shaun Aviles on 08-05-2024 Lymphocytes (Bld) [#/Vol] 1.8 10*3/uL Normal 1.00-4.8 [facility] Comment on above: Performed By: #### C BC #### [address] Lymphocytes/100 WBC Auto (Bl d)Ordered By: Shaun Aviles on 08-05-2024 Lymphocytes/100 WBC (Bld) Lymphocytes/100 leukocytes in Blood by Automated count . [facility] Lymphocytes/100 leukocytes i n Blood by Automated countOrdered By: Shaun Aviles on 08-05-2024 Lymphocytes/100 WBC (Bld) 24.1 % Normal . [facility] Comment on above: Performed By: #### C BC #### [facility] [address] [place] [address] MCH Auto (RBC) [Entitic mass ]Ordered By: Shaun Aviles on 08-05-2024 MCH (RBC) [Entitic mass] MCH [Entitic mass] by Automated count 24.7-34.3 [facility] MCH [Entitic mass] by Automa frieda countOrdered By: Shaun Aviles on 08-05-2024 MCH (RBC) [Entitic mass] 28.1 pg Normal 24.7-34.3 [facility] Comment on above: Performed By: #### C BC #### [address] MCHC Auto (RBC) [Mass/Vol]Or dered By: Shaun Aviles on 08-05-2024 MCHC (RBC) [Mass/Vol] 34.1 g/dL 32.0-35.0 [facility] MCHC (RBC) [Mass/Vol] MCHC [Mass/volume] by Automated count 32.0-35.0 [facility] MCV Auto (RBC) [Entitic vol] Ordered By: Shaun Aviles on 08-05-2024 MCV (RBC) [Entitic vol] MCV [Entitic vol ume] by Automated count 80-100 [facility] MCV [Entitic volume] by Auto mated countOrdered By: Shaun Aviles on 08-05-2024 MCV (RBC) [Entitic vol] 82.3 fL Normal 80-100 [facility] Comment on above: Performed By: #### C BC #### [address] Monocytes Auto (Bld) [#/Vol] Ordered By: Shaun Aviles on 08-05-2024 Monocytes (Bld) [#/Vol] Automated blood monocyte count 0.0-0.8 [facility] Monocytes/100 WBC Auto (Bld) Ordered By: Shaun Aviles on 08-05-2024 Monocytes/100 WBC (Bld) Automated monocyte % . [facility] Neutrophils Auto (Bld) [#/Vo l]Ordered By: Shaun Aviles on 08-05-2024 Neutrophils (Bld) [#/Vol] Neutrophils [#/volume] in Blood by Automated count 1.8-7.7 [facility] Neutrophils [#/volume] in Bl ood by Automated countOrdered By: Shaun Aviles on 08-05-2024 Neutrophils (Bld) [#/Vol] 5.2 10*3/uL Normal 1.8-7.7 [facility] Comment on above: Performed By: #### C BC #### [facility] [address] [place] [address] [place] Neutrophils/100 WBC Auto (Bl d)Ordered By: Shaun Aviles on 08-05-2024 Neutrophils/100 WBC (Bld) Automated neutrophil % . [facility] No Panel InformationOrdered By: Shaun Aviles on 08-05-2024 Estimated GFR (CKD-EPI) > 60.0 mL/Min [facility] Creatinine Clearance (Chem N/A [facility] Nucleated erythrocytes [Pres ence] in Blood by Automated countOrdered By: Shaun Aviles on 08-05-2024 Nucleated RBC Auto Ql (Bld) 0.1 /100{WBC} 0-0.5 [facility] Nucleated RBC Auto Ql (Bld) Nucleated erythrocytes [Presence] in Blood by Automated count 0-0.5 [facility] Platelet mean volume Auto (B ld) [Entitic vol]Ordered By: Shaun Aviles on 08-05-2024 Platelet mean volume (Bld) [Entitic vol] Platelet mean volume [Entitic volume] in Blood by Automated count 6.3-10.7 [facility] Platelet mean volume [Entiti c volume] in Blood by Automated countOrdered By: Shaun Aviles on 08-05-2024 Platelet mean volume (Bld) [Entitic vol] 7.4 fL Normal 6.3-10.7 [facility] Comment on above: Performed By: #### C BC #### [facility] [address] [place] [address] [place] Platelets Auto (Bld) [#/Vol] Ordered By: Shaun Aviles on 08-05-2024 Platelets (Bld) [#/Vol] Platelets [#/vol ume] in Blood by Automated count 150-450 [facility] Platelets [#/volume] in Bloo d by Automated countOrdered By: Shaun Aviles on 08-05-2024 Platelets (Bld) [#/Vol] 253 10*3/uL Normal 150-450 [facility] Comment on above: Performed By: #### C BC #### [address] Potassium [Moles/volume] in Serum or PlasmaOrdered By: Shaun Aviles on 08-05-2024 Potassium [Moles/Vol] 4.8 mmol/L Normal 3.5-5.1 [facility] Comment on above: Performed By: #### L IPID, CMP, T4F, MARCIA, TSH3, [id number] #### [facility] [address] [place], [place] [id number] [facility] Potassium [Moles/Vol] Potassium [Moles/volume] in Serum or Plasma 3.5-5.1 [facility] Protein [Mass/volume] in Ser um or PlasmaOrdered By: Shaun Aviles on 08-05-2024 Protein [Mass/Vol] 7.1 g/dL Normal 6.4-8.9 [facility] Comment on above: Performed By: #### L IPID, CMP, T4F, MARCIA, TSH3, [id number] #### [place] [id number] [facility] Protein [Mass/Vol] Protein [Mass/volume ] in Serum or Plasma 6.4-8.9 [facility] RBC Auto (Bld) [#/Vol]Ordere d By: Shaun Aviles on 08-05-2024 RBC (Bld) [#/Vol] Erythrocytes [#/volume] in Blood by Automated count 3.60-5.00 [facility] Random cortisol measurementO rdered By: Shaun Aviles on 08-05-2024 Cortisol [Mass/Vol] 6.9 ug/dL [facility] Comment on above: [facility] restaurant general manager and method:LIYA UNICEL DXI, POLYCLONAL ANTIBODY CORTISOL ASSAY.Reference range: AM 6 - 24 ug/dl PM <10 ug/dl Serum globulin measurement b y calculation (mass/volume)Ordered By: Shaun Aviles on 08-05-2024 Globulin (S) [Mass/Vol] 2.8 g/dL Normal [facility] Comment on above: Performed By: #### L IPID, CMP, T4F, MARCIA, TSH3, [id number] #### [address] Serum or plasma albumin/glob ulin mass ratioOrdered By: Shaun Aviles on 08-05-2024 Albumin/Globulin [Mass ratio] 1.5 {ratio} Normal [facility] Comment on above: Performed By: #### L IPID, CMP, T4F, MARCIA, TSH3, [id number] #### [address] Albumin/Globulin [Mass ratio] Serum or plasma albumin/globulin mass ratio [facility] Serum or plasma anion gap de terminationOrdered By: Shaun Aviles on 08-05-2024 Anion gap [Moles/Vol] 10.5 mmol/L Normal 6.0-15.0 [facility] Comment on above: Performed By: #### L IPID, CMP, T4F, MARCIA, TSH3, [id number] #### [address] Anion gap [Moles/Vol] Serum or plasma an ion gap determination 6.0-15.0 [facility] Serum or plasma high density lipoprotein (HDL) cholesterol measurementOrdered By: Shaun Avilse on 08-05-2024 Cholesterol in HDL [Mass/Vol] 46 mg/dL Normal 23-92 [facility] Comment on above: HDL CHOL ATP-III CLA SSIFICATION Cardiovascular RiskHDL > or equal to 60 mg/dL LOWHDL < 40 mg/dL HIGH Result Comment: HDL CHOL ATP-III CLASSIFICATION Cardiovascular Risk HDL > or equal to 60 mg/dL LOW HDL < 40 mg/dL HIGH Performed By: #### L IPID, CMP, T4F, MARCIA, TSH3, [id number] #### [facility] [address] Serum or plasma total choles terol/high density lipoprotein (HDL) cholesterol mass ratOrdered By: Shaun Aivles on 08-05-2024 Cholesterol.total/Corina sterol in HDL [Mass ratio] 3.3 {ratio} Normal <5.0 [facility] Comment on above: Performed By: #### L IPID, CMP, T4F, MARCIA, TSH3, [id number] #### [facility] [address] Cholesterol.total/Corina sterol in HDL [Mass ratio] Serum or plasma total cholesterol/high density lipoprotein (HDL) cholesterol mass rat <5.0 [facility] Sodium [Moles/volume] in Ser um or PlasmaOrdered By: Shaun Aviles on 08-05-2024 Sodium [Moles/Vol] 139 mmol/L Normal 136-145 [facility] Comment on above: Performed By: #### L IPID, CMP, T4F, MARCIA, TSH3, [id number] #### [facility] [address] [place] [address] Sodium [Moles/Vol] Sodium [Moles/volume ] in Serum or Plasma 136-145 [facility] Thyrotropin [Units/volume] i n Serum or PlasmaOrdered By: Shaun Aviles on 08-05-2024 TSH Qn 1.32 m[IU]/L Normal 0.45-5.33 [facility] Comment on above: Performed By: #### L IPID, CMP, T4F, MARCIA, TSH3, [id number] #### [facility] [address] [place] [address] TSH Qn Thyrotropin [Units/volume] in Serum or Plasma 0.45-5.33 [facility] Thyroxine (T4) free [Mass/vo lume] in Serum or PlasmaOrdered By: Shaun Aviles on 08-05-2024 Free T4 [Mass/Vol] 0.90 ng/dL Normal 0.61-1.12 [facility] Comment on above: Performed By: #### L IPID, CMP, T4F, MARCIA, TSH3, [id number] #### [facility] [address] [place] [address] [facility] Free T4 [Mass/Vol] Thyroxine (T4) free [Mass/volume] in Serum or Plasma 0.61-1.12 [facility] Triglyceride [Mass/volume] i n Serum or PlasmaOrdered By: Shaun Aviles on 08-05-2024 Triglyceride [Mass/Vol] 76 mg/dL 0-149 [facility] Comment on above: TRIG ATP III CLASSIF ICATIONTRIG less than 150 mg/dL NormalTRIG 150-199 mg/dL Borderline highTRIG 200-500 mg/dL High TRIG greater than 500 mg/dL Very highStandard traceable to the Center for Disease Conrtrol and Prevention (CDC) test method. Triglyceride [Mass/Vol] Triglyceride [Mass/volume] in Serum or Plasma 0-149 [facility] Comment on above: TRIG ATP III CLASSIF ICATIONTRIG less than 150 mg/dL NormalTRIG 150-199 mg/dL Borderline highTRIG 200-500 mg/dL High TRIG greater than 500 mg/dL Very highStandard traceable to the Center for Disease Conrtrol and Prevention (CDC) test method. Urea nitrogen [Mass/volume] in Serum or PlasmaOrdered By: Shaun Aviles on 08-05-2024 Urea nitrogen [Mass/Vol] 13 mg/dL Normal 05-01 [facility] Comment on above: Performed By: #### L IPID, CMP, T4F, MARCIA, TSH3, [id number] #### [facility] [address] [place] [id number] [facility] Urea nitrogen [Mass/Vol] Urea nitrogen [Mass/volume] in Serum or Plasma 05-01 [facility] Vitamin D 25 Hydroxy Totalon 08-05-2024 Vitamin D 25 Hydroxy Total 33.6 ng/mL Normal 30-100 [facility] Comment on above: Result Comment: ADEEL MIN D STATUS 25(OH)VITAMIN D RANGE (ng/mL) Deficient <20 Insufficient 20 to <30 Sufficient 30 to 100 Reference: Monique MF,Tatum NC, Matt TAYLOR, et al. Evaluation,treatment, and prevention of vitamin D deficiency; an Endocrine Society clinical practice guideline. JCEM. 2010; 96(7):1911-. PERFORMED BY: [facility] [address] [place] [address] PATHOLOGIST SOCKET PULLER ALBA SCHULTE M.D. Performed By: #### U HCG, URDS #### [address] Vitamin D+Metabolites [Mass/ volume] in Serum or PlasmaOrdered By: Shaun Aviles on 08-05-2024 Vitamin D+Metabolites [Mass/Vol] 33.6 ng/mL 30-100 [facility] Comment on above: VITAMIN D STATUS 25( OH)VITAMIN D RANGE (ng/mL) Deficient <20 Insufficient 20 to <30Sufficient 30 to 100Reference: Monique JARAMILLO,Tatum SAVAGE, Matt TAYLOR, et al. Evaluation,treatment, and prevention of vitamin D deficiency; an Endocrine Society clinical practice guideline. JCEM. 2010; 96(7):1911-. Vitamin D+Metabolites [Mass/Vol] Vitamin D+Metabolites [Mass/volume] in Serum or Plasma 30-100 [facility] Comment on above: VITAMIN D STATUS 25( OH)VITAMIN D RANGE (ng/mL) Deficient <20 Insufficient 20 to <30Sufficient 30 to 100Reference: Monique JARAMILLO,Tatum SAVAGE, Matt TAYLOR, et al. Evaluation,treatment, and prevention of vitamin D deficiency; an Endocrine Society clinical practice guideline. JCEM. 2010; 96(7):1911-. WBC Auto (Bld) [#/Vol]Ordere d By: Shaun Aviles on 08-05-2024 WBC (Bld) [#/Vol] Leukocytes [#/volume ] in Blood by Automated count 3.8-11.6 [facility] Amphetamine Screen Ql (U)Ord ered By: Willie Lambert on 07-01-2024 Amphetamines Ql (U) Amphetamines screen Negativ e [facility] Amphetamines Ql (U) Negative Negative [facility] Barbiturates [Presence] in U rine by Screen methodOrdered By: Willie Lambert on 07-01-2024 Barbiturates Screen Ql (U) Negative Negative [facility] Barbiturates Screen Ql (U) Barbiturates [Presence] in Urine by Screen method Negative [facility] Benzodiazepines Screen Ql (U )Ordered By: Willie Lambert on 07-01-2024 Benzodiazepines Ql (U) Negative Negative [facility] Benzodiazepines Ql (U) Benzodiazepines [Presence] in Urine by Screen method Negative [facility] Benzoylecgonine [Presence] i n Urine by Screen methodOrdered By: Willie Lambert on 07-01-2024 Benzoylecgonine Screen Ql (U) Negative Negative [facility] Benzoylecgonine Screen Ql (U) Benzoylecgonine [Presence] in Urine by Screen method Negative [facility] Cannabinoids [Presence] in U rine by Screen methodOrdered By: Willie Lambert on 07-01-2024 Cannabinoids Screen Ql (U) Positive High Negative [facility] Comment on above: These are unconfirme d results and should not be used for legal purposes. Drug Cut-Off Concentration: AMPH 1000 ng/mL SENG 200 ng/mL DAVIDA 200 ng/mL COCM 300 ng/mL OP 300 ng/mL PCP 25 ng/mL THC 20 ng/mL Cannabinoids Screen Ql (U) Cannabinoids [Presence] in Urine by Screen method High Negative [facility] Comment on above: These are unconfirme d results and should not be used for legal purposes. Drug Cut-Off Concentration: AMPH 1000 ng/mL SENG 200 ng/mL DAVIDA 200 ng/mL COCM 300 ng/mL OP 300 ng/mL PCP 25 ng/mL THC 20 ng/mL Drug Screen,Urineon 07-01-20 24 Amphetamine Screen,Urine Negative Normal Negative [facility] Comment on above: Performed By: #### U HCG, URDS #### [facility] [address] Barbiturate Screen,Urine Negative Normal Negative [facility] Comment on above: Performed By: #### U HCG, URDS #### [facility] [address] Benzodiazepines Screen,Urine Negative Normal Negative [facility] Comment on above: Performed By: #### U HCG, URDS #### [address] Cannabinoid Screen,Urine Positive High Negative [facility] Comment on above: Result Comment: Thes e are unconfirmed results and should not be used for legal purposes. Drug Cut-Off Concentration: AMPH 1000 ng/mL SENG 200 ng/mL DAVIDA 200 ng/mL COCM 300 ng/mL OP 300 ng/mL PCP 25 ng/mL THC 20 ng/mL PERFORMED BY: [place] [address] PATHOLOGIST SOCKET PULLER ALBA SCHULTE M.D. Performed By: #### U HCG, URDS #### [address] Cocaine Screen,Urine Negative Normal Negative [facility] Comment on above: Performed By: #### U HCG, URDS #### [address] Opiate Screen,Urine Negative Normal Negative [facility] Comment on above: Performed By: #### U HCG, URDS #### [address] Phencyclidine Screen,Urine Negative Normal Negative [facility] Comment on above: Performed By: #### U HCG, URDS #### [address] HCG ( test) IA.rapi d Ql (U)Ordered By: Willie Lambert on 07-01-2024 HCG ( test) Ql (U) Negative [facility] HCG ( test) Ql (U) Urine human chorionic gonadotropin (hCG) detection by immunoassay [facility] HCG,Urineon 07-01-2024 Beta HCG ( test) Ql (U) Negative Normal [facility] Comment on above: Result Comment: PERF ORMED BY: [place] [address] PATHOLOGIST SOCKET PULLER ALBA SCHULTE M.D. Performed By: #### U HCG, URDS #### [place] [address] [place] 07-01-2024 L Specimen: [id number] Received: 07/02/24 Status: EDITH Camejo Num: [id number] Spec Type: Surgical Subm Dr: Willie Lambert MD Tissues: A Small Intestine - Biopsy/Polyp (SM BOWEL BX R/O CELIAC) B Esophagus Biopsy (ESOPHAGEAL BX R/O EOE) Procedures: HE/4, Gross/Micro L4/2 Age/ Patient Sex Location Account Attending Physician SullivanBrian lilly 28/F [id number] Willie Lambert MD SPEC NUM: [id number] RECD: 07/02/24 STATUS: EDITH CAMEJO NUM: [id number] SANTOS: 07/01/[address] [facility] [address]: Willie Lambert MD ENTERED: 07/02/[address] [facility] [address]: SPEC TYPE: Surgical DEPT: S ENTERED BY: [id number] RECV BY: [id number] ORDERED: HE/4, Gross/Micro L4/2 ORDERED: HE/4, Gross/Micro [...] entirely submitted in cassette B1. -------- Specimen: [id number] Received: 07/02/24 Status: EDITH Camejo Num: [id number] Spec Type: Surgical Subm Dr: Willie Lambert MD Tissues: A Small Intestine - Biopsy/Polyp (SM BOWEL BX R/O CELIAC) B Esophagus Biopsy (ESOPHAGEAL BX R/O EOE) Procedures: NABILA Gross/Micro L4/2 -------- Patient: Brian Sullivan [id number] (Continued) -------- Specimen: [id number] Received: 07/02/24 (Continued) Signed (signature on file) Lefty Washington MD 07/07/24 1433 -------- Specimen: [id number] Received: 07/02/24 Status: EDITH Camejo Num: [id number] Spec Type: Surgical Subm Dr: Willie Lambert MD Tissues: A Small Intestine - Biopsy/Polyp (SM BOWEL BX R/O CELIAC) B Esophagus Biopsy (ESOPHAGEAL BX R/O EOE) Procedures: Sandip DAHL/Micro L4/2 -------- Patient: Brian Sullivan [id number] (Continued) -------- Specimen: [id number] Received: 07/02/24 (Continued) Microscopic Description A B: Microscopic examination is performed. CPT Codes 33613 x 2 -------- -------- Specimen: [id number] Received: 07/02/24 Status: EDITH Camejo Num: [id number] Spec Type: Surgical Subm Dr: Willie Lambert MD Tissues: A Small Intestine - Biopsy/Polyp (SM BOWEL BX R/O CELIAC) B Esophagus Biopsy (ESOPHAGEAL BX R/O EOE) Procedures: HE/4, Gross/Micro L4/2 -------- Patient: Brian Sullivan [id number] (Continued) -------- Signed (signature on file) Lefty Washington MD 07/07/24 1433 Normal [facility] Opiates [Presence] in Urine by Screen methodOrdered By: Willie Lambert on 07-01-2024 Opiates Screen Ql (U) Negative Negative [facility] Opiates Screen Ql (U) Opiates [Presence] in Urine by Screen method Negative [facility] Phencyclidine Screen Ql (U)O rdered By: Willie Lambert on 07-01-2024 Phencyclidine Ql (U) Negative Negative [facility] Phencyclidine Ql (U) Phencyclidine [Presence] in Urine by Screen method Negative [facility] Giardia lamblia Ag [Presence ] in Stool by Immunoassayon 05-19-2024 G. lamblia Ag IA Ql (Stl) Negative Negative [facility] Comment on above: Performed at: [facility] [address] [id number] Director: Joey Hoyos PhD, Phone: [phone] No Panel Informationon 05-19 Clostridium difficile (PCR)(LAB) Negative NEGATIVE [facility] Miscellaneous Test Comment See comment [facility] Comment on above: Specimen Source: ST - Stool - Stool - 700.100 Stool Campylobacter Culture Res 1 \R\ Campylobacter Culture\R\ No Campylobacter species isolated. [facility] Comment on above: [facility], No Panel InformationOrdered By: Ines Ojeda on 05-19-2024 E coli Shiga Toxin EIA Fi [facility] Salmonella/Shigella Screen [facility] Basophils Auto (Bld) [#/Vol] on 05-18-2024 Basophils (Bld) [#/Vol] 0.0 10 3/uL 0.0-0.1 [facility] Basophils/100 WBC Auto (Bld) on 05-18-2024 Basophils/100 WBC (Bld) 0.1 % Low 0.2-2.0 [facility] Eosinophils/100 WBC Auto (Bl d)on 05-18-2024 Eosinophils/100 WBC (Bld) 0.0 % Low 0.9-7.0 [facility] Erythrocyte distribution wid th Auto (RBC) [Ratio]on 05-18-2024 Erythrocyte distribution width (RBC) [Ratio] 12.9 % 11.0-15.0 [facility] Estimated glomerular filtrat ion rate (GFR) non- Americanon 05-18-2024 GFR/1.73 sq M.predicted among non-blacks MDRD (S/P/Bld) [Vol rate/Area] mL/min/{1.73_m2} >=60 [facility] Globulin Calc (S) [Mass/Vol] on 05-18-2024 Globulin (S) [Mass/Vol] 3.7 g/dL [facility] HCG ( test) IA.rapi d Ql (U)on 05-18-2024 HCG ( test) Ql (U) Negative NEGATIVE [facility] Hematocrit Auto (Bld) [Volum e fraction]on 05-18-2024 Hematocrit (Bld) [Volume fraction] 39.1 % 36.0-48.0 [facility] Hemoglobin [Mass/volume] in Bloodon 05-18-2024 Hemoglobin (Bld) [Mass/Vol] 13.0 g/dL 12.0-16.0 [facility] Laboratory - Chemistry and C hemistry - challengeon 05-18-2024 Albumin [Mass/Vol] 4.3 g/dL 3.4-5.0 [facility] ALP [Catalytic activity/Vol] 126 U/L High 46-116 [facility] ALT [Catalytic activity/Vol] 20 U/L 14-59 [facility] AST [Catalytic activity/Vol] 19 U/L 15-37 [facility] Bilirubin [Mass/Vol] 0.6 mg/dL 0.2-1.0 [facility] Bilirubin Ql (U) SMALL Abnormal NEGATIVE [facility] Calcium [Mass/Vol] 9.5 mg/dL 8.5-10.1 [facility] Chloride [Moles/Vol] 102 mmol/L 98-107 [facility] CO2 [Moles/Vol] 28.3 mmol/L 21.0-32.0 [facility] Creatinine [Mass/Vol] 0.85 mg/dL 0.55-1.02 [facility] GFR/1.73 sq M.predicted MDRD (S/P/Bld) [Vol rate/Area] mL/min/{1.73_m2} >=60 [facility] Glucose (U) [Mass/Vol] Negative NEGATIVE [facility] Glucose [Mass/Vol] 90 mg/dL 74-106 [facility] Ketones Ql (U) Negative NEGATIVE [facility] Lipase [Catalytic activity/Vol] 36.0 U/L 16.0-77.0 [facility] pH (U) 6.0 [pH] 5.0-9.0 [facility] Potassium [Moles/Vol] 3.4 mmol/L Low 3.5-5.1 [facility] Protein [Mass/Vol] 8.0 g/dL 6.4-8.2 [facility] Sodium [Moles/Vol] 141 mmol/L 136-145 [facility] Specific gravity (U) [Rel density] >=1.030 Abnormal 1.005-1.025 [facility] Urea nitrogen [Mass/Vol] 7.0 mg/dL 7.0-18.0 [facility] Urea nitrogen/Creatinine [Mass ratio] 8.2 mg/mg [facility] Urobilinogen Qn (U) 0.2 {Mary Ann'U}/dL 0.2-1.0 [facility] Laboratory - Hematology and Cell countson 05-18-2024 Immature granulocytes/100 WBC (Bld) 0.1 % 0.0-0.5 [facility] Laboratory - Specimen inform ationon 05-18-2024 Appearance (U) CLEAR CLEAR [facility] Color (U) YELLOW YELLOW [facility] Laboratory - Urinalysison Leukocyte esterase Test strip Ql (U) Negative NEGATIVE [facility] Nitrite Ql (U) Negative NEGATIVE [facility] Protein Ql (U) Negative NEG/TRACE [facility] Leukocytes [#/volume] correc frieda for nucleated erythrocytes in Blood by Automated counon 05-18-2024 WBC corrected for nucl RBC Auto (Bld) [#/Vol] 7.8 10 3/uL 4.0-11.0 [facility] Lymphocytes Auto (Bld) [#/Vo l]on 05-18-2024 Lymphocytes (Bld) [#/Vol] 2.0 10 3/uL 1.2-3.8 [facility] Lymphocytes/100 WBC Auto (Bl d)on 05-18-2024 Lymphocytes/100 WBC (Bld) 25.3 % 20.5-60.0 [facility] MCH Auto (RBC) [Entitic mass ]on 05-18-2024 MCH (RBC) [Entitic mass] 27.8 pg 26.7-34.0 [facility] MCHC Auto (RBC) [Mass/Vol]on 05-18-2024 MCHC (RBC) [Mass/Vol] 33.2 g/dL 29.9-35.2 [facility] MCV Auto (RBC) [Entitic vol] on 05-18-2024 MCV (RBC) [Entitic vol] 83.5 fL 81.0-99.0 [facility] Monocytes Auto (Bld) [#/Vol] on 05-18-2024 Monocytes (Bld) [#/Vol] 0.5 10 3/uL 0.3-0.8 [facility] Monocytes/100 WBC Auto (Bld) on 05-18-2024 Monocytes/100 WBC (Bld) 6.3 % 1.7-12.0 [facility] Neutrophils Auto (Bld) [#/Vo l]on 05-18-2024 Neutrophils (Bld) [#/Vol] 5.3 10 3/uL 1.4-6.5 [facility] Neutrophils/100 WBC Auto (Bl d)on 05-18-2024 Neutrophils/100 WBC (Bld) 68.2 % 43.0-75.0 [facility] No Panel Informationon 05-18 Eosinophils # (Auto) 0.0 10 3/uL 0.0-0.7 Fir [facility] Immature Granulocyte # (Auto) 0.01 10 3/uL 0.00-0.03 [facility] Urine Microscopic Review NO [facility] Urine Occult Blood Negative NEGATIVE [facility] Platelet mean volume Auto (B ld) [Entitic vol]on 05-18-2024 Platelet mean volume (Bld) [Entitic vol] 9.2 fL Low 9.5-13.5 [facility] Platelets Auto (Bld) [#/Vol] on 05-18-2024 Platelets (Bld) [#/Vol] 293 10 3/uL 150-450 [facility] RBC Auto (Bld) [#/Vol]on RBC (Bld) [#/Vol] 4.68 10 6/uL 4.20-5.40 [facility] Serum or plasma albumin/glob ulin mass ratioon 05-18-2024 Albumin/Globulin [Mass ratio] 1.2 {ratio} [facility] Serum or plasma anion gap de terminationon 05-18-2024 Anion gap [Moles/Vol] 14.1 mmol/L [facility] Alanine aminotransferase [En zymatic activity/volume] in Serum or PlasmaOrdered By: Gail Lawrence on 12-27-2023 ALT [Catalytic activity/Vol] 9 U/L 7-52 [facility] Aspartate aminotransferase [ Enzymatic activity/volume] in Serum or PlasmaOrdered By: Gail Lawrence on 12-27-2023 AST [Catalytic activity/Vol] 18 U/L 13-39 [facility] Basophils Auto (Bld) [#/Vol] Ordered By: Gail Lawrence on 12-27-2023 Basophils (Bld) [#/Vol] 0.0 10*3/uL 0.0-0.2 [facility] Basophils/100 WBC Auto (Bld) Ordered By: Gail Lawrence on 12-27-2023 Basophils/100 WBC (Bld) 0.1 % . [facility] Eosinophils Auto (Bld) [#/Vo l]Ordered By: Gail Lawrence on 12-27-2023 Eosinophils (Bld) [#/Vol] 0.0 10*3/uL 0.0-0.45 [facility] Eosinophils/100 WBC Auto (Bl d)Ordered By: Gail Lawrence on 12-27-2023 Eosinophils/100 WBC (Bld) 0.0 % . [facility] Erythrocyte distribution wid th Auto (RBC) [Ratio]Ordered By: Gail Lawrence on 12-27-2023 Erythrocyte distribution width (RBC) [Ratio] 14.1 % 11.9-15.3 [facility] Hematocrit Auto (Bld) [Volum e fraction]Ordered By: Gail Lawrence on 12-27-2023 Hematocrit (Bld) [Volume fraction] 37.9 % 34.0-46.4 [facility] Hemoglobin [Mass/volume] in BloodOrdered By: Gail Lawrence on 12-27-2023 Hemoglobin (Bld) [Mass/Vol] 12.6 g/dL 11.8-15.4 [facility] Leukocytes [#/volume] correc frieda for nucleated erythrocytes in Blood by Automated counOrdered By: Gail Lawrence on 12-27-2023 WBC corrected for nucl RBC Auto (Bld) [#/Vol] 6.5 10*3/uL 3.8-11.6 [facility] Lymphocytes Auto (Bld) [#/Vo l]Ordered By: Gail Lawrence on 12-27-2023 Lymphocytes (Bld) [#/Vol] 1.9 10*3/uL 1.00-4.8 [facility] Lymphocytes/100 WBC Auto (Bl d)Ordered By: Gail Lawrence on 12-27-2023 Lymphocytes/100 WBC (Bld) 29.2 % . [facility] MCH Auto (RBC) [Entitic mass ]Ordered By: Gail Lawrence on 12-27-2023 MCH (RBC) [Entitic mass] 26.8 pg 24.7-34.3 [facility] MCHC Auto (RBC) [Mass/Vol]Or dered By: Gail Lawrence on 12-27-2023 MCHC (RBC) [Mass/Vol] 33.3 g/dL 32.0-35.0 [facility] MCV Auto (RBC) [Entitic vol] Ordered By: Gail Lawrence on 12-27-2023 MCV (RBC) [Entitic vol] 80.5 fL 80-100 [facility] Monocytes Auto (Bld) [#/Vol] Ordered By: Gail Lawrence on 12-27-2023 Monocytes (Bld) [#/Vol] 0.4 10*3/uL 0.0-0.8 [facility] Monocytes/100 WBC Auto (Bld) Ordered By: Gail Lawrence on 12-27-2023 Monocytes/100 WBC (Bld) 5.7 % . [facility] Neutrophils Auto (Bld) [#/Vo l]Ordered By: Gail Lawrence on 12-27-2023 Neutrophils (Bld) [#/Vol] 4.2 10*3/uL 1.8-7.7 [facility] Neutrophils/100 WBC Auto (Bl d)Ordered By: Gail Lawrence on 12-27-2023 Neutrophils/100 WBC (Bld) 65.0 % . [facility] Nucleated erythrocytes [Pres ence] in Blood by Automated countOrdered By: Gail Lawrence on 12-27-2023 Nucleated RBC Auto Ql (Bld) 0.0 /100{WBC} 0-0.5 [facility] Platelet mean volume Auto (B ld) [Entitic vol]Ordered By: Gail Lawrence on 12-27-2023 Platelet mean volume (Bld) [Entitic vol] 6.7 fL 6.3-10.7 [facility] Platelets Auto (Bld) [#/Vol] Ordered By: Gail Lawrence on 12-27-2023 Platelets (Bld) [#/Vol] 284 10*3/uL 150-450 [facility] RBC Auto (Bld) [#/Vol]Ordere d By: Gail Lawrence on 12-27-2023 RBC (Bld) [#/Vol] 4.71 10*6/uL 3.60-5.00 [facility] Triglyceride [Mass/volume] i n Serum or PlasmaOrdered By: Gail Lawrence on 12-27-2023 Triglyceride [Mass/Vol] 78 mg/dL 35-149 [facility] Comment on above: TRIG ATP III CLASSIF ICATIONTRIG less than 150 mg/dL NormalTRIG 150-199 mg/dL Borderline highTRIG 200-500 mg/dL High TRIG greater than 500 mg/dL Very highStandard traceable to the Center for Disease Conrtrol and Prevention (CDC) test method. WBC Auto (Bld) [#/Vol]Ordere d By: Gail Lawrence on 12-27-2023 WBC (Bld) [#/Vol] 6.5 10*3/uL 3.8-11.6 [facility] Amphetamine Screen Ql (U)Ord ered By: Willie Lambert on 08-22-2023 Amphetamines Ql (U) Negative Negative [facility] Barbiturates [Presence] in U rine by Screen methodOrdered By: Willie Lambert on 08-22-2023 Barbiturates Screen Ql (U) Negative Negative [facility] Benzodiazepines Screen Ql (U )Ordered By: Willie Lambert on 08-22-2023 Benzodiazepines Ql (U) Negative Negative [facility] Benzoylecgonine [Presence] i n Urine by Screen methodOrdered By: Willie Lambert on 08-22-2023 Benzoylecgonine Screen Ql (U) Negative Negative [facility] Cannabinoids [Presence] in U rine by Screen methodOrdered By: Willie Lambert on 08-22-2023 Cannabinoids Screen Ql (U) Positive Negative [facility] Comment on above: These are unconfirme d results and should not be used for legal purposes. Drug Cut-Off Concentration: AMPH 1000 ng/mL SENG 200 ng/mL DAVIDA 200 ng/mL COCM 300 ng/mL OP 300 ng/mL PCP 25 ng/mL THC 20 ng/mL HCG ( test) IA.rapi d Ql (U)Ordered By: Willie Lambert on 08-22-2023 HCG ( test) Ql (U) Negative [facility] Opiates [Presence] in Urine by Screen methodOrdered By: Willie Lambert on 08-22-2023 Opiates Screen Ql (U) Negative Negative Fir [facility] Phencyclidine Screen Ql (U)O rdered By: Willie Lambert on 08-22-2023 Phencyclidine Ql (U) Negative Negative [facility] C reactive protein [Mass/vol ume] in Serum or PlasmaOrdered By: Lj Stanton on 08-15-2023 CRP [Mass/Vol] < 0.5 mg/dL 0.0-0.5 [facility] Elastase.pancreatic [Mass/ma ss] in StoolOrdered By: Lj Stanton on 08-15-2023 Elastase.pancreatic (Stl) [Mass/Mass] 449 >200 [facility] Comment on above: Result Units: ug [address] st./g Severe Pancreatic Insufficiency: <100 Moderate Pancreatic Insufficiency: 100 - 200 Normal: >200Performed at: - [address] [id number] Director: Viet Taylor MD, Phone: [phone] Erythrocyte sedimentation ra te by Photometric methodOrdered By: Lj Stanton on 08-15-2023 ESR Photometric method (Bld) [Velocity] 16 mm/hr 0-19 [facility] HIV 1 and HIV-2 antibody ass ay with HIV-1 p24 antigen detectionOrdered By: Lj Stanton on 08-15-2023 HIV 1+2 Ab+HIV1 p24 Ag IA Ql Non-Reactive Non Reactive [facility] Comment on above: HIV NegativeHIV-1/HI V-2 antibodies and HIV-1 p24 antigen were NOTdetected. There is no laboratory evidence of HIV infection.Performed at: - [facility] [id number] Director: Joey Hoyos PhD, Phone: [phone] IgA [Mass/volume] in Serum o r PlasmaOrdered By: Lj Stanton on 08-15-2023 IgA [Mass/Vol] 180 mg/dL 87-352 [facility] Comment on above: Performed at: [address] [id number] Director: Joey Hoyos PhD, Phone: [phone] No Panel InformationOrdered By: Lj Stanton on 08-15-2023 Endomysial IgA Antibody Negative Negative [facility] Serum gliadin peptide IgA an tibody assay (units/volume)Ordered By: Lj Stanton on 08-15-2023 Gliadin peptide IgA Qn (S) 9 units 0-19 [facility] Comment on above: Negative 0 - 19 Weak Positive 20 - 30 Moderate to Strong Positive >30 Serum gliadin peptide IgG an tibody assay (units/volume)Ordered By: Lj Stanton on 08-15-2023 Gliadin peptide IgG Qn (S) 4 units 0-19 [facility] Comment on above: Negative 0 - 19 Weak Positive 20 - 30 Moderate to Strong Positive >30 Serum tissue transglutaminas e (tTG) IgA antibody assay (units/volume)Ordered By: Lj Stanton on 08-15-2023 tTG IgA Qn (S) <2 U/mL 0-3 [facility] Comment on above: Negative 0 - 3 Weak Positive 4 - 10 Positive >10 Tissue Transglutaminase (tTG) has been identified as the endomysial antigen. Studies have demonstr- ated that endomysial IgA antibodies have over 99% specificity for gluten sensitive enteropathy. Serum tissue transglutaminas e (tTG) IgG antibody assay (units/volume)Ordered By: Lj Stanton on 08-15-2023 tTG IgG Qn (S) 4 U/mL 0-5 [facility] Comment on above: Negative 0 - 5 Weak Positive 6 - 9 Positive >9 Stool bacteria identificatio n by cultureOrdered By: Lj Stanton on 08-15-2023 Bacteria identified Cx Nom (Stl) [facility] Thyrotropin [Units/volume] i n Serum or PlasmaOrdered By: Lj Stanton on 08-15-2023 TSH Qn 0.57 m[IU]/L 0.45-5.33 [facility] C Urineon 07-03-2023 Bacteria identified Cx [...] Locations R1: This test was performed at: [facility], [address] [place] [address], [facility] , , [facility] Comment on above: Performed By: #### 2 [id number] #### [facility] [address] [place] [id number] Discharge Instructionson Discharge Instructions [phone] [id number] #[id number]:127 [facility] Outside Recordson 07-02-2023 Outside Records [id number]# 1.00CD:127 Normal [facility] US Pelvis Non-OB Completeon 07-02-2023 US Pelvis [...] TEDDY Technical Comments Transabdominal Ultrasound Performed Normal [facility] Auto Diffon 07-01-2023 Basophils/100 WBC (Bld) 0.2 % Normal 0.0-2.0 [facility] Comment on above: Order Comment: Order Added by Discern Expert. Performed By: #### 2 393617, 3809271, 6953734, [id number] #### [facility] [address] [place] [address] Basophils/Leukocytes Auto (Bld) [Pure # fraction] 0.0 E9/L Normal 0.0-0.2 [facility] Comment on above: Order Comment: Order Added by Discern Expert. Performed By: #### 2 326831, 2528553, 9317322, [id number] #### [facility] [address] [place] [address] Eosinophils/100 WBC (Bld) 0.0 % Normal 0.0-8.0 [facility] Comment on above: Order Comment: Order Added by Discern Expert. Performed By: #### 2 517134, 7082714, 9296374, [id number] #### [facility] [address] [place] [address] Eosinophils/Leukocytes Auto (Bld) [Pure # fraction] 0.0 E9/L Normal 0.0-0.5 [facility] Comment on above: Order Comment: Order Added by Discern Expert. Performed By: #### 2 086707, 3387729, 6156736, [id number] #### [facility] [address] [place] [address] Lymphocytes/100 WBC (Bld) 16.2 % Normal 14.0-50.0 [facility] Comment on above: Order Comment: Order Added by Discern Expert. Performed By: #### 2 662270, 2224317, 0768016, [id number] #### [facility] [address] [place] [address] Lymphocytes/Leukocytes Auto (Bld) [Pure # fraction] 1.5 E9/L Normal 1.0-4.0 [facility] Comment on above: Order Comment: Order Added by Discern Expert. Performed By: #### 2 363804, 8942972, 1878490, 32908180 #### [facility] [address] [place] [address] Monocytes/100 WBC (Bld) 6.9 % Normal 4.0-14.0 [facility] Comment on above: Order Comment: Order Added by Discern Expert. Performed By: #### 2 827407, 4332008, 9945375, 91524806 #### [facility] [address] [place] [address] Monocytes/Leukocytes Auto (Bld) [Pure # fraction] 0.7 E9/L Normal 0.2-1.0 [facility] Comment on above: Order Comment: Order Added by Discern Expert. Performed By: #### 2 453648, 6031111, 1545518, 88342297 #### [facility] [address] [place] [address] Neutrophils/100 WBC (Bld) 76.7 % High 36.0-75.0 [facility] Comment on above: Order Comment: Order Added by Discern Expert. Performed By: #### 2 180953, 8765850, 4218659, 53184753 #### [facility] [address] [place] [address] Neutrophils/Leukocytes Auto (Bld) [Pure # fraction] 7.2 E9/L Normal 2.0-7.5 [facility] Comment on above: Order Comment: Order Added by Discern Expert. Performed By: #### 2 821765, 0070949, 2987964, 41141814 #### [facility] [address] [place] [address] BMPon 07-01-2023 Creatinine [Mass/Vol] 0.7 mg/dL Normal 0.5-1.3 [facility] Comment on above: Performed By: #### 2 383922, 5971218, 0378424, 86973161 #### [facility] [address] [place] [address] Urea nitrogen [Mass/Vol] 9 mg/dL Normal 5-21 [facility] Comment on above: Performed By: #### 2 802494, 7748417, 5030800, 42501196 #### [facility] [address] [place] [address] Urea nitrogen/Creatinine [Mass ratio] 13 No Units Normal 10-20 [facility] Comment on above: Performed By: #### 2 091529, 4938135, 8698147, 55302357 #### [facility] [address] [place] [address] Anion gap [Moles/Vol] 5 mmol/L Low 6-16 [facility] Comment on above: Performed By: #### 2 445302, 6890707, 8953542, 24914061 #### [facility] [address] [place] [address] Calcium [Mass/Vol] 8.6 mg/dL Low 8.9-11.1 [facility] Comment on above: Performed By: #### 2 747427, 7342741, 1889300, 38158682 #### [facility] [address] [place] [address] Chloride [Moles/Vol] 112 mmol/L High 101-111 [facility] Comment on above: Performed By: #### 2 592931, 6026756, 3641784, 15591419 #### [facility] [address] [place] [address] CO2 [Moles/Vol] 27 mmol/L Normal 21-31 [place] Comment on above: Performed By: #### 2 805190, 1172465, 3065130, 30018669 #### [facility] [address] [place] [address] Glucose [Mass/Vol] 120 mg/dL Normal 55-199 [facility] Comment on above: Result Comment: If t his glucose result represents a fasting glucose, interpretation should refer to the following reference range: 55-99 mg/dL Performed By: #### 2 193435, 0909590, 1872275, 79688597 #### [facility] [address] [place] [address] Potassium [Moles/Vol] 3.8 mmol/L Normal 3.5-5.3 [facility] Comment on above: Performed By: #### 2 224139, 0851978, 9276906, 92426874 #### [facility] [address] [place] [address] Sodium [Moles/Vol] 140 mmol/L Normal 135-145 [facility] Comment on above: Performed By: #### 2 698771, 7439254, 8559740, 21289822 #### [facility] [address] [place] [address] CBC w/ Auto Diffon 3 Erythrocyte distribution width (RBC) [Ratio] 14.8 % High 10.9-14.2 [facility] Comment on above: Performed By: #### 2 975595, 0084914, 4589027, 14558402 #### [facility] [address] [place] [address] Hematocrit (Bld) [Volume fraction] 38.0 % Normal 34.0-46.0 [facility] Comment on above: Performed By: #### 2 376511, 9457402, 4111849, 77735158 #### [facility] [address] [place] [address] Hemoglobin (Bld) [Mass/Vol] 12.8 g/dL Normal 12.0-16.0 [facility] Comment on above: Performed By: #### 2 992902, 4672041, 1311523, 62156934 #### [facility] [address] [place] [address] MCH (RBC) [Entitic mass] 27.5 pg Normal 27.0-34.0 [facility] Comment on above: Performed By: #### 2 370930, 6038462, 0999352, 46530954 #### [facility] [address] [place] [address] MCHC (RBC) [Mass/Vol] 33.8 g/dL Normal 31.4-36.0 [facility] Comment on above: Performed By: #### 2 019943, 3087444, 9611846, 73568941 #### [facility] [address] [place] [address] MCV (RBC) [Entitic vol] 81.3 fL Normal 80.0-100.0 [facility] Comment on above: Performed By: #### 2 886250, 8832000, 7567659, 50094731 #### [facility] [address] [place] [address] Platelet mean volume (Bld) [Entitic vol] 6.8 fL Normal 6.4-10.8 [facility] Comment on above: Performed By: #### 2 563155, 6936252, 6637899, 93223526 #### [facility] [address] [place] [address] Platelets (Bld) [#/Vol] 240.0 E9/L Normal 150.0-500.0 [facility] Comment on above: Performed By: #### 2 842617, 4218743, 8417162, 44424047 #### [facility] [address] [place] [address] RBC (Bld) [#/Vol] 4.7 E12/L Normal 4.3-5.9 [facility] Comment on above: Performed By: #### 2 290429, 3026661, 2013504, 58424270 #### [facility] [address] [place] [address] WBC corrected for nucl RBC Auto (Bld) [#/Vol] 9.4 E9/L Normal 4.0-11.0 [place] Comment on above: Performed By: #### 2 350378, 5222147, 0042169, 06506551 #### [facility] [address] [place] [address] CHEMISTRYOrdered By: SYSTEM SYSTEM on 07-01-2023 Anion gap [Moles/Vol] 5 mmol/L Low 6 - 16 mEq/L [facility] Calcium [Mass/Vol] 8.6 mg/dL Low 8.9 - 11. 1 mg/dL [facility] Chloride [Moles/Vol] 112 mmol/L High 101 - 1 11 mmol/L [facility] CO2 [Moles/Vol] 27 mmol/L Normal 21 - 31 mmol/L [facility] Creatinine [Mass/Vol] 0.7 mg/dL Normal 0.5 - 1.3 mg/dL [facility] GFR/1.73 sq M.predicted among non-blacks MDRD (S/P/Bld) [Vol rate/Area] 123 mL/min/1.73 m2 Normal >=59mL/min/1 .73 m2 [facility] S Glucose [Mass/Vol] 120 mg/dL Normal 55 - 199 mg/dL [facility] Potassium [Moles/Vol] 3.8 mmol/L Normal 3.5 - 5.3 mmol/L [facility] Sodium [Moles/Vol] 140 mmol/L Normal 135 - 145 mmol/L [facility] Urea nitrogen [Mass/Vol] 9 mg/dL Normal 5 - 21 mg/dL [facility] Urea nitrogen/Creatinine [Mass ratio] 13 mg/mg Normal 10 - 20 [facility] Consent for Treatmenton 06-09 Consent for Treatment [id number]#1 .00CD:127 Normal [facility] ED Clinical Summaryon 2022 ED Clinical Summary [address] [address] ED Clinical Summary Person Information Name: BRIAN SULLIVAN/Dary Age: 27 Years : 1995 Sex: Female Language: Ugandan PCP: SHWETA GONZALEZ Marital Status: Single Visit [...] 07/01/2023 21:05:09 07/01/2023 21:05:09 07/01/2023 21:05:09 ADDRESS: [address] [place] [phone] PHYS DOC NOTES: Addendum by Kendrick Zacarias MD on July 01, 2023 20:41:03 EDT MEDICAL INFORMATION: Prescriptions Given: New Medications [facility], [address] [place], [place] [id number], [phone] ondansetron (Zofran ODT 4 mg Tab-Dis) 1 Tablets By Mouth every 8 hours. Refills: 0. Printed Prescriptions acetaminophen-oxycodo ne (Percocet 5 mg-325 mg oral tablet) 1 Tablets By Mouth every 6 hours. Refills: 0. PATIENT EDUCATION INFORMATION: Instructions: Pelvic Pain, Female, Vvnk-bt-Mciy Follow up: With: Address: When: [facility], [address] [place] [address] [place] [address] Business (1) In 3 days 07/04/2023 Comments: Call the office first thing Sunday morning With: Address: When: SHWETA LISA In 3 days DIAGNOSIS: 1:Pelvic pain Normal [facility] ED Note-Nursingon 07-01-2023 ED Note-Nursing at this time pt states she wishes to wait in the waiting room for her ride. pt states she did not drive. this nurse states pt is unable to drive d/t medication given per mar. pt verbalized understanding. Normal [facility] ED Note-Physicianon 07-01-20 ED Note-Physician Basic Information Time Seen: Kemi UnderwoodWojciechRobertWojciechMirna 07/01/2023 17:57 Chief Complaint Pt reports abd pain for one week. Pt went to [place] ED 2 days ago, given 2 ABX [...] She was seen [address] [facility] and CAT scan done. She was diagnosed with colitis and on Cipro and Flagyl given. The patient states she is getting worse. States she went back to [facility], she thinks yesterday and they did [...] getting an ultrasound of the pelvis at [facility]. The patient states she had temperature [...] and Complexity of Problems Differential Diagnosis: [] [facility] Data External documents reviewed: [] My EKG interpretation: [] My CT interpretation: [] My X-ray interpretation: [] My Ultrasound interpretation: [] Decision rules/scores evaluated: [] Discussed with: [] Treatment and Disposition ED Course: Presented with left pelvic pain. She has been seen at [facility] twice. The urine is negative. The [...] Leuk Est (more content not included)... Normal [facility] Comment on above: Result Comment: Elec tronically [...] Follow these instructions at home: ? Take fipi-qqx-tefwsjq and prescription medicines only as told by [...] Reviewed: 01/31/2022 Elsevier Patient Education ? 2022 [employer] Inc. Normal [facility] ED Patient Summaryon 023 ED Patient Summary [place] [id number] Patient Discharge Instructions Person Information Name: BRIAN SULLIVAN Age: 27 Years Arrival Date: 07/01/2023 17:48:54 Discharge Diagnosis: 1:Pelvic pain Primary Care Physician: SHWETA GONZALEZ Provider Information Primary Provider: Mirna Mcmullen M.D. Advanced Stoker Installation Mechanic:None The exam and treatment you received in the Emergency Department were for an urgent problem and are not intended as complete care. It is important that you follow up with a doctor, nurse practitioner, or physician?s customer marketing assistant for ongoing care. If your symptoms become worse or you do not improve as expected and you are unable to reach your usual health care provider, you should return to the Emergency Department. We are available 24 hours a day. BRIAN SULLIVAN has been given the following list of patient education materials, prescriptions and follow-up instructions: Follow-up Instructions: With: Address: [facility] [address] [place] [address] , [place] [address] Business (1) In 3 days 07/04/2023 Comments: Call the office first thing Sunday With: Address: When: SHWETA GONZALEZ In 3 days In the event that this physician does not participate in your insurance network, please consult with your insurance company to find a nearby participating provider. Patient Education Materials: Pelvic Pain, Female, Ffkk-gj-Mqjx A MESSAGE TO ALL PATIENTS REGARDING OPIOIDS PRESCRIPTION OPIOIDS: WHAT YOU NEED TO KNOW Prescription opioids can be used to help relieve uoreieqe-fs-dbelei pain and are often prescribed following a [...] your hea (more content not included)... Normal [facility] HEMATOLOGYOrdered By: SYSTEM SYSTEM on 07-01-2023 Basophils/100 WBC (Bld) 0.2 % Normal 0.0 - 2.0 % [facility] HemeAutoSS Basophils/Leukocytes Auto (Bld) [Pure # fraction] [...] 9.4 E9/L Normal 4.0 - 11.0 E9/L [facility] HemeAutoSS MICRO OTHER TESTSOrdered By: Lambert Clayton on 07-01-2023 Rapid COV Int NEG Ctl Pass (07/01/23 6:41 PM) Normal [facility] Man Sero Rapid COV Int POS Ctl Pass (07/01/23 6:41 PM) Normal [facility] [place] Sero SARS-CoV+SARS-CoV-2 (COVID-19) Ag IA.rapid Ql (Resp) Not Detected (07/01/23 6:41 PM) Normal Not Detected [facility] [place] Sero Rapid COVID Antigen ([facility]on 07-01-2023 Rapid COV Int NEG Ctl Pass Normal [facility] Comment on above: Performed By: #### 2 [id number] #### [facility] [address] [place] [address] Rapid COV Int POS Ctl Pass Normal [facility] Comment on above: Performed By: #### 2 [id number] #### [facility] [address] [place] [address] SARS-CoV+SARS-CoV-2 (COVID-19) Ag IA.rapid Ql (Resp) Not detected Normal Not Detected [facility] Comment on above: Result Comment: The ONE RECOVERYitor? System for Rapid Detection of SARS-CoV-2 is [...] or revoked sooner. Performed By: #### 2 [id number] #### [facility] [address] [place] [address] SEROLOGYOrdered By: Lambert For ster on 07-01-2023 HCG.beta subunit (U) [Moles/Vol] Negative Normal [facility] Man Sero U BetaHcg Qualon 07-01-2023 HCG.beta subunit (U) [Moles/Vol] Negative Normal [facility] Comment on above: Performed By: #### 2 [id number] #### [facility] [address] [place] [address] UA With Cult Reflexon 2022 Bilirubin Ql (U) Negative Normal Negative [facility] Comment on above: Order Comment: Urina ry Catheter Insertion triggered Urinalysis With Culture Reflex order by discern. Performed By: #### 2 [id number] #### [facility] [address] [place] [address] Clarity (U) CLEAR Normal Clear [facility] Comment on above: Order Comment: Urina ry Catheter Insertion triggered Urinalysis With Culture Reflex order by discern. Performed By: #### 2 [id number] #### [facility] [address] [place] [address] Color (U) YELLOW Normal Yellow [facility] Comment on above: Order Comment: Urina ry Catheter Insertion triggered Urinalysis With Culture Reflex order by discern. Performed By: #### 2 [id number] #### [facility] [address] [place] [address] Crystals LM Ql (Urine sed) Present Normal [facility] Comment on above: Order Comment: Urina ry Catheter Insertion triggered Urinalysis With Culture Reflex order by discern. Performed By: #### 2 [id number] #### [facility] [address] [place] [address] Epithelial cells.squamous LM.HPF (Urine sed) [#/Area] 0-2 Normal 0-2 [facility] Comment on above: Order Comment: Urina ry Catheter Insertion triggered Urinalysis With Culture Reflex order by discern. Performed By: #### 2 [id number] #### [facility] [address] [place] [address] Glucose Test strip (U) [Mass/Vol] Negative Normal Negative [facility] Comment on above: Order Comment: Urina ry Catheter Insertion triggered Urinalysis With Culture Reflex order by discern. Performed By: #### 2 [id number] #### [facility] [address] [place] [address] Hemoglobin Ql (U) Negative Normal Negative [facility] Comment on above: Order Comment: Urina ry Catheter Insertion triggered Urinalysis With Culture Reflex order by discern. Performed By: #### 2 [id number] #### [facility] [address] [place] [address] Ketones (U) [Mass/Vol] Negative Normal Negative [facility] Comment on above: Order Comment: Urina ry Catheter Insertion triggered Urinalysis With Culture Reflex order by discern. Performed By: #### 2 [id number] #### [facility] [address] [place] [address] [place].plasma/[place]. RBC (Bld) [Mass ratio] 0-3 Normal 0-3 [place] Comment on above: Order Comment: Urina ry Catheter Insertion triggered Urinalysis With Culture Reflex order by discern. Performed By: #### 2 [id number] #### [facility] [address] [place] [address] Nitrite Ql (U) Negative Normal Negative [facility] Comment on above: Order Comment: Urina ry Catheter Insertion triggered Urinalysis With Culture Reflex order by discern. Performed By: #### 2 [id number] #### [facility] [address] [place] [address] pH (U) 6.5 [pH] Invalid Interpretation Code 5.0-9.0 [facility] Comment on above: Order Comment: Urina ry Catheter Insertion triggered Urinalysis With Culture Reflex order by discern. Performed By: #### 2 [id number] #### [facility] [address] [place] [address] Protein (U) [Mass/Vol] Negative Normal Negative [facility] Comment on above: Order Comment: Urina ry Catheter Insertion triggered Urinalysis With Culture Reflex order by discern. Performed By: #### 2 [id number] #### [facility] [address] [place] [address] Specific gravity (U) [Rel density] 1.020 Invalid Interpretation Code 1.005-1.030 [facility] Comment on above: Order Comment: Urina ry Catheter Insertion triggered Urinalysis With Culture Reflex order by discern. Performed By: #### 2 [id number] #### [facility] [address] [place] [address] Type of Urine collection method Clean Catch Normal [facility] Comment on above: Order Comment: Urina ry Catheter Insertion triggered Urinalysis With Culture Reflex order by discern. Performed By: #### 2 [id number] #### [facility] [address] [place] [address] Urobilinogen Qn (U) 0.2 {Mary Ann'U}/dL Normal 0.0-1.0 [facility] Comment on above: Order Comment: Urina ry Catheter Insertion triggered Urinalysis With Culture Reflex order by discern. Performed By: #### 2 [id number] #### [facility] [address] [place] [address] WBC Auto Ql (U) Negative Normal Negative [place] Comment on above: Order Comment: Urina ry Catheter Insertion triggered Urinalysis With Culture Reflex order by discern. Performed By: #### 2 [id number] #### [facility] [address] [place] [address] WBC LM.HPF (Urine sed) [#/Area] 0-5 Normal 0-5 [facility] Comment on above: Order Comment: Urina ry Catheter Insertion triggered Urinalysis With Culture Reflex order by discern. Performed By: #### 2 [id number] #### [facility] [address] [place] [address] Bacteria LM Ql (Urine sed) TRACE Normal Trace [facility] Comment on above: Performed By: #### 2 [id number] #### [facility] [address] [place] [address] Bilirubin Ql (U) Negative Normal Negative [facility] Comment on above: Performed By: #### 2 [id number] #### [facility] [address] [place] [address] Clarity (U) CLEAR Normal Clear [facility] Comment on above: Performed By: #### 2 [id number] #### [facility] [address] [place] [address] Color (U) YELLOW Normal Yellow [facility] Comment on above: Performed By: #### 2 [id number] #### [facility] [address] [place] [address] Crystals LM Ql (Urine sed) Present Normal [facility] Comment on above: Performed By: #### 2 [id number] #### [facility] [address] [place] [address] Epithelial cells.squamous LM.HPF (Urine sed) [#/Area] 3-4 Normal 0-2 [facility] Comment on above: Performed By: #### 2 [id number] #### [facility] [address] [place] [address] Glucose Test strip (U) [Mass/Vol] Negative Normal Negative [facility] Comment on above: Performed By: #### 2 [id number] #### [facility] [address] [place] [address] Hemoglobin Ql (U) Negative Normal Negative [facility] Comment on above: Performed By: #### 2 [id number] #### [facility] [address] [place] [address] Ketones (U) [Mass/Vol] Negative Normal Negative [facility] Comment on above: Performed By: #### 2 [id number] #### [facility] [address] [place] [address] [place].plasma/[place]. RBC (Bld) [Mass ratio] 0-3 Normal 0-3 [place] Comment on above: Performed By: #### 2 [id number] #### [facility] [address] [place] [address] Mucus Ql (Urine sed) 2+ Normal [facility] Comment on above: Performed By: #### 2 [id number] #### [facility] [address] [place] [address] Nitrite Ql (U) Negative Normal Negative [facility] Comment on above: Performed By: #### 2 [id number] #### [facility] [address] [place] [address] pH (U) 7.5 [pH] Invalid Interpretation Code 5.0-9.0 [facility] Comment on above: Performed By: #### 2 [id number] #### [facility] [address] [place] [address] Protein (U) [Mass/Vol] Negative Normal Negative [facility] Comment on above: Performed By: #### 2 [id number] #### [facility] [address] [place] [address] Specific gravity (U) [Rel density] 1.020 Invalid Interpretation Code 1.005-1.030 [facility] Comment on above: Performed By: #### 2 [id number] #### [facility] [address] [place] [address] Type of Urine collection method Clean Catch Normal [facility] Comment on above: Performed By: #### 2 [id number] #### [facility] [address] [place] [address] Urobilinogen Qn (U) 0.2 {Mary Ann'U}/dL Normal 0.0-1.0 [facility] Comment on above: Performed By: #### 2 [id number] #### [facility] [address] [place] [address] WBC Auto Ql (U) 1+ Abnormal Negative [place] Comment on above: Performed By: #### 2 [id number] #### [facility] [address] [place] [address] WBC LM.HPF (Urine sed) [#/Area] 0-5 Normal 0-5 [facility] Comment on above: Performed By: #### 2 [id number] #### [facility] [address] [place] [address] URINALYSISOrdered By: Lambert fernando on 07-01-2023 Bilirubin Ql (U) Negative (07/01/23 7:07 PM) Normal Negative [facility] UA Auto SS Clarity (U) Clear (07/01/23 7:07 PM) Normal Clear [facility] UA Auto SS Color (U) Yellow (07/01/23 7:07 PM) Normal Yellow [facility] UA Auto SS Crystals LM Ql (Urine sed) Present (07/01/23 7:07 PM) Normal [facility] UA Auto SS Epithelial cells.squamous LM.HPF (Urine sed) [#/Area] 0-2 /HPF Normal 0-2/HPF [facility] UA Aut o SS Glucose Test strip (U) [Mass/Vol] Negative (07/01/23 7:07 PM) Normal Negative [facility] UA Auto SS Hemoglobin Ql (U) Negative (07/01/23 7:07 PM) Normal Negative [facility] UA Auto SS Ketones (U) [Mass/Vol] Negative (07/01/23 7:07 PM) Normal Negative [facility] UA Auto SS [place].plasma/[place]. RBC (Bld) [Mass ratio] 0-3 /HPF Normal [...] [facility] UA Auto SS Urobilinogen Qn (U) 0.9126921 {Mary Ann'U}/dL Normal 0.0 - 1.0 EU/dL [...] Normal Negative [facility] UA Auto SS [place].plasma/[place]. RBC (Bld) [Mass ratio] 0-3 /HPF Normal 0-3/HPF [facility] UA A uto SS Mucus Ql (Urine [...] FT UA Auto SS Urobilinogen Qn (U) [id number] {Mary Ann'U}/dL Normal 0.0 - 1.0 EU/dL [facility] UA Auto SS WBC Auto Ql (U) 1+ *ABN* (07/01/23 6:14 PM) Invalid Interpretation Code Negative [facility] UA Auto SS WBC LM.HPF (Urine sed) [#/Area] 0-5 /HPF Normal 0-5/HPF [facility] UA Auto SS eGFRon 07-01-2023 GFR/1.73 sq M.predicted among non-blacks MDRD (S/P/Bld) [Vol rate/Area] 123 mL/min/1.73 m2 Normal >=59 [facility] Comment on above: Order Comment: Order added by Discern Expert. Result Comment: Beaming Inspector adama kidney disease could be indicated at eGFR's of less than 60 mL/min/1.73m2. Kidney failure is indicated at less than 15 mL/min/1.73m2. Performed By: #### [id number] #### [facility] [address] [place] [address] US PELVIS AND TRANSVAGon US PELVIS AND [...] by: ILENE MERCADO Date: 2022-07-18 21:34 Normal [facility] CBC AUTO DIFFon 07-06-2022 BASO # 0.0 103/ul Normal 0.0-0.1 [facility] Comment on above: Performed By: #### YANE RODRÍGUEZ #### [facility] [address] [address] [address] Hans Muniz Basophils/100 WBC (Bld) 0.2 % Normal 0.2-2.0 [facility] Comment on above: Performed By: #### YANE RODRÍGUEZ #### [facility] [address] [address] [address] Hans Muniz EO # 0.2 103/ul Normal 0.0-0.7 [facility] Comment on above: Performed By: #### YANE RODRÍGUEZ #### [facility] [address] [place] [address] Dr. Hans Muniz Eosinophils/100 WBC (Bld) 2.3 % Normal 0.9-7.0 [facility] Comment on above: Performed By: #### YANE RODRÍGUEZ #### [facility] [address] [place] [address] Dr. Hans Muniz Erythrocyte distribution width (RBC) [Ratio] 13.0 % Normal 11.0-15.0 [facility] Comment on above: Performed By: #### SHAWN RODRÍGUEZRO #### [facility] [address] [place] [address] Dr. Hans Muniz Hematocrit (Bld) [Volume fraction] 45.7 % Normal 36.0-48.0 [facility] Comment on above: Performed By: #### SHAWN RODRÍGUEZRO #### [facility] [address] [place] [address] Dr. Hans Muniz Hemoglobin (Bld) [Mass/Vol] 14.7 g/dL Normal 12.0-16.0 [facility] Comment on above: Performed By: #### YANE RODRÍGUEZ #### [facility] [address] [place] [address] Dr. Hans Muniz IG # 0.03 10e3/ul Normal 0.00-0.03 [facility] Comment on above: Performed By: #### SHAWN RODRÍGUEZRO #### [facility] [address] [place] [address] Dr. Hans Muniz IG % 0.4 % Normal 0.0-0.[address] [facility] Comment on above: Performed By: #### SHAWN RODRÍGUEZRO #### [facility] [address] [place] [address] Dr. Hans Muniz LYMPH # 1.9 103/ul Normal 1.2-3.8 [facility] Comment on above: Performed By: #### YANE RODRÍGUEZ #### [facility] [address] [place] [address] Dr. Hans Muniz Lymphocytes/100 WBC (Bld) 23.0 % Normal 20.5-60.0 [facility] Comment on above: Performed By: #### SHAWN RODRÍGUEZRO #### [facility] [address] [place] [address] Dr. Hans Muniz MANUAL DIFF REQ NO Normal [facility] Comment on above: Performed By: #### Lora SHIRLEY UMICRO #### [facility] [address] [place] [address] Dr. Hans Muniz MCH (RBC) [Entitic mass] 27.1 pg Normal 26.7-34.0 [facility] Comment on above: Performed By: #### MAGALIS RODRÍGUEZICRO #### [facility] [address] [place] [address] Dr. Hans Muniz MCHC (RBC) [Mass/Vol] 32.2 g/dL Normal 29.9-35.2 [facility] Comment on above: Performed By: #### MAGALIS RODRÍGUEZICRO #### [facility] [address] [place] [address] Dr. Hans Muniz MCV (RBC) [Entitic vol] 84.3 fL Normal 81.0-99.0 [facility] Comment on above: Performed By: #### Lora SHIRLEY UMICRO #### [facility] [address] [place] [address] Dr. Hans Muniz MONO # 0.6 103/ul Normal 0.3-0.8 [facility] Comment on above: Performed By: #### Lora SHIRLEY UMICRO #### [facility] [address] [place] [address] Dr. Hans Muniz Monocytes/100 WBC (Bld) 7.1 % Normal 1.7-12.0 [facility] Comment on above: Performed By: #### Lora SHIRLEY UMICRO #### [facility] [address] [place] [address] Dr. Hans Muniz NEUT # 5.6 103/ul Normal 1.4-6.5 [facility] Comment on above: Performed By: #### Lora SHIRLEY, UMICRO #### [facility] [address] [place] [address] Dr. Hans Muniz Neutrophils/100 WBC (Bld) 67.0 % Normal 43.0-75.0 [facility] Comment on above: Performed By: #### E JENNIFERR, UMICRO #### [facility] [address] [place] [address] Dr. Hans Muniz Platelet mean volume (Bld) [Entitic vol] 8.5 fL Critically low 9.5-13.5 [facility] Comment on above: Performed By: #### Lora SHIRLEY, UMICRO #### [facility] [address] [place] [address] Dr. Hans Muniz PLT 307 103/ul Normal 150-450 [facility] Comment on above: Performed By: #### Lora SHIRLEY UMICRO #### [facility] [address] [place] [address] Dr. Hans Muniz RBC 5.42 106/ul Critically high 4.20-5.40 [facility] Comment on above: Performed By: #### Lora SHIRLEY UMICRO #### [facility] [address] [place] [address] Dr. Hans Muniz WBC 8.4 103/ul Normal 4.0-11.0 [facility] Comment on above: Performed By: #### Lora SHIRLEY, UMICRO #### [facility] [address] [place] [address] ABD/PELV W CONon 07-06-[address] ABD/PELV W CON EXAMINATION: [...] ILENE MERCADO Date: 2022-07-06 15:[address] [facility] SARS-CoV-2 (COVID-19) RNA BALTAZAR+probe Ql (Unsp spec) Not detected Normal NOT DETECTED [facility] Comment on above: Result Comment: When [...] for this test is supported by the Animal Care Assistant of Health and Human Service's declaration that [...] used). Performed By: #### E RURYANE #### [facility] [address] [place] [address] Dr. Hans Muniz ER URINE PROFILEon 2 Bilirubin Ql (U) Negative Normal NEGATIVE [facility] Comment on above: Performed By: #### E RUR #### [facility] [address] [place] [address] Dr. Hans Muniz Clarity (U) CLEAR Normal CLEAR [facility] Comment on above: Performed By: #### E RUR #### [facility] [address] [place] [address] Dr. Hans Muniz Color (U) YELLOW Normal YELLOW [facility] Comment on above: Performed By: #### E RUR #### [facility] [address] [place] [address] Dr. Hans SCHAEFER A micrscopic examination will be performed if indicated. Normal [facility] Comment on above: Performed By: #### E RUR #### [facility] [address] [place] [address] Dr. Hans Muniz Glucose Ql (U) Negative Normal NEGATIVE [facility] Comment on above: Performed By: #### E RUR #### [facility] [address] [place] [address] Dr. Hans Muniz Hemoglobin Ql (U) Negative Normal NEGATIVE [facility] Comment on above: Performed By: #### E RUR #### [facility] [address] [place] [address] Dr. Hans Muniz Ketones Ql (U) Negative Normal NEGATIVE [facility] Comment on above: Performed By: #### E RUR #### [facility] [address] [place] [address] Dr. Hans Muniz LEUKOCYTES Negative Normal NEGATIVE [facility] Comment on above: Performed By: #### E RUR #### [facility] [address] [place] [address] Dr. Hans Muniz Nitrite Ql (U) Negative Normal NEGATIVE [facility] Comment on above: Performed By: #### E RUR #### [facility] [address] [place] [address] Dr. Hans Muniz pH (U) 7.0 [pH] Normal 5-9 [facility] Comment on above: Performed By: #### E RUR #### [facility] [address] [place] [address] Dr. Hans Muniz SPEC GRAVITY 1.020 Normal 1.005-<=1.02 5 [facility] Comment on above: Performed By: #### E RUR #### [facility] [address] [place] [address] Dr. Hans Muniz UA PROTEIN Negative Normal NEGATIVE/ TRACE [facility] Comment on above: Performed By: #### E RUR #### [facility] [address] [place] [address] Dr. Hans Muniz UR MICRO IND NOT INDICATED Normal [facility] Comment on above: Performed By: #### E RUR #### [facility] [address] [place] [address] Dr. Hans Muniz Urobilinogen Qn (U) 0.2 {Mary Ann'U}/dL Normal 0.2 - 1. 0 [facility] Comment on above: Performed By: #### E RUR #### [facility] [address] [place] [address] Dr. Hans Muniz LACTATE/LACTIC ACIDon 2021 Lactate [Moles/Vol] 1.7 mmol/L Normal 0.4-1.9 [facility] Comment on above: Performed By: #### E YANE SHIRLEY #### [facility] [address] [place] [address] Dr. Hans Muniz PROF CHEM 8 (BAS METB)on Anion gap [Moles/Vol] 12.3 mmol/L Normal [facility] Comment on above: Performed By: #### E YANE SHIRLEY #### [facility] [address] [address] [address] Hans Muniz Calcium [Mass/Vol] 9.2 mg/dL Normal 8.5-10.1 [facility] Comment on above: Performed By: #### MAGALIS RODRÍGUEZICRO #### [facility] [address] [address] [address] Hans Muniz Chloride [Moles/Vol] 101 mmol/L Normal 98-[address] [facility] Comment on above: Performed By: #### Lora SHIRLEY UMICRO #### [facility] [address] [address] [address] Hans Muniz CO2 [Moles/Vol] 26.7 mmol/L Normal 21.0-32.0 [facility] Comment on above: Performed By: #### Lora SHIRLEY UMRACHELRO #### [facility] [address] [place] [address] Dr. Hans Muniz Creatinine [Mass/Vol] 0.75 mg/dL Normal 0.55-1.02 [facility] Comment on above: Performed By: #### Lora SHIRLEY UMICRO #### [facility] [address] [address] [address] Hans Muniz EGFR-AF KUWAITI >60 Normal >=60 [facility] Comment on above: Performed By: #### Lora SHIRLEY UMRACHELRO #### [facility] [address] [place] [address] Dr. Hans Muniz EGFR-NON AF KUWAITI >60 Normal >=[address] [facility] Comment on above: Performed By: #### Lora SHIRLEY UMICRO #### [facility] [address] [place] [address] Dr. Hans Muniz Glucose [Mass/Vol] 96 mg/dL Normal 74-106 [facility] Comment on above: Performed By: #### Lora SHIRLEY UMICRO #### [facility] [address] [place] [address] Dr. Hans Muniz Potassium [Moles/Vol] 4.0 mmol/L Normal 3.5-5.[address] [facility] Comment on above: Performed By: #### SHAWN RODRÍGUEZRO #### [facility] [address] [place] [address] Dr. Hans Muniz Sodium [Moles/Vol] 136 mmol/L Normal 136-145 [facility] Comment on above: Performed By: #### SHAWN RODRÍGUEZRO #### [facility] [address] [place] [address] Dr. Hans Muniz Urea nitrogen [Mass/Vol] 9.0 mg/dL Normal 7.0-18.0 [facility] Comment on above: Performed By: #### SHAWN RODRÍGUEZRO #### [facility] [address] [place] [address] Dr. Hans Muniz Urea nitrogen/Creatinine [Mass ratio] 12.0 mg/mg Normal [facility] Comment on above: Performed By: #### SHAWN RODRÍGUEZRO #### [facility] [address] [place] [address] Dr. Hans Muniz CULTURE URINEon 07-04-2022 CULTURE [...] S F Tetracycline >=16 R F Normal [facility] Comment on above: Performed By: #### SHAWN RODRÍGUEZRO #### [facility] [address] [place] [address] Dr. Hans Muniz CBC AUTO DIFFon 07-02-2022 BASO # 0.0 103/ul Normal 0.0-0.1 [facility] Comment on above: Performed By: #### C BC #### [facility] [address] [place] [address] Dr. Hans Muniz Basophils/100 WBC (Bld) 0.3 % Normal 0.2-2.0 [facility] Comment on above: Performed By: #### C BC #### [facility] [address] [address] [address] Hans Muniz EO # 0.1 103/ul Normal 0.0-0.7 [facility] Comment on above: Performed By: #### C BC #### [facility] [address] [place] [address] Dr. Hans Muniz Eosinophils/100 WBC (Bld) 1.2 % Normal 0.9-7.0 [facility] Comment on above: Performed By: #### C BC #### [facility] [address] [place] [address] Dr. Hans Muniz Erythrocyte distribution width (RBC) [Ratio] 13.1 % Normal 11.0-15.0 [facility] Comment on above: Performed By: #### C BC #### [facility] [address] [place] [address] Dr. Hans Muniz Hematocrit (Bld) [Volume fraction] 37.6 % Normal 36.0-48.0 [facility] Comment on above: Performed By: #### C BC #### [facility] [address] [place] [address] Dr. Hans Muniz Hemoglobin (Bld) [Mass/Vol] 12.4 g/dL Normal 12.0-16.0 [facility] Comment on above: Performed By: #### C BC #### [facility] [address] [place] [address] Dr. Hans Muinz IG # 0.02 10e3/ul Normal 0.00-0.03 [facility] Comment on above: Performed By: #### C BC #### [facility] [address] [place] [address] Dr. Hans Muniz IG % 0.2 % Normal 0.0-0.5 [facility] Comment on above: Performed By: #### C BC #### [facility] [address] [place] [address] Dr. Hans Muniz LYMPH # 3.3 103/ul Normal 1.2-3.8 [facility] Comment on above: Performed By: #### C BC #### [facility] [address] [place] [address] Dr. Hans Muniz Lymphocytes/100 WBC (Bld) 34.8 % Normal 20.5-60.0 [facility] Comment on above: Performed By: #### C BC #### [facility] [address] [place] [address] Dr. Hans Muniz MANUAL DIFF REQ NO Normal [facility] Comment on above: Performed By: #### C BC #### [facility] [address] [place] [address] Dr. Hans Muniz MCH (RBC) [Entitic mass] 27.8 pg Normal 26.7-34.0 [facility] Comment on above: Performed By: #### C BC #### [facility] [address] [place] [address] Dr. Hans Muniz MCHC (RBC) [Mass/Vol] 33.0 g/dL Normal 29.9-35.2 [facility] Comment on above: Performed By: #### C BC #### [facility] [address] [place] [address] Dr. Hans Muniz MCV (RBC) [Entitic vol] 84.3 fL Normal 81.0-99.0 [facility] Comment on above: Performed By: #### C BC #### [facility] [address] [place] [address] Dr. Hans Muniz MONO # 0.6 103/ul Normal 0.3-0.8 [facility] Comment on above: Performed By: #### C BC #### [facility] [address] [place] [address] Dr. Hans Muniz Monocytes/100 WBC (Bld) 6.8 % Normal 1.7-12.0 [facility] Comment on above: Performed By: #### C BC #### [facility] [address] [place] [address] Dr. Hans Muniz NEUT # 5.3 103/ul Normal 1.4-6.5 [facility] Comment on above: Performed By: #### C BC #### [facility] [address] [place] [address] Dr. Hans Muniz Neutrophils/100 WBC (Bld) 56.7 % Normal 43.0-75.0 [facility] Comment on above: Performed By: #### C BC #### [facility] [address] [place] [address] Dr. Hans Muniz Platelet mean volume (Bld) [Entitic vol] 8.9 fL Critically low 9.5-13.5 [facility] Comment on above: Performed By: #### C BC #### [facility] [address] [place] [address] Dr. Hans Muniz PLT 286 103/ul Normal 150-[address] [facility] Comment on above: Performed By: #### C BC #### [facility] [address] [place] [address] Dr. Hans Muniz RBC 4.46 106/ul Normal 4.20-5.[address] [facility] Comment on above: Performed By: #### C BC #### [facility] [address] [place] [address] Dr. Hans Muniz WBC 9.4 103/ul Normal 4.0-11.0 [facility] Comment on above: Performed By: #### C BC #### [facility] [address] [place] [address] Dr. Hans Muniz ER URINE PROFILEon 2 Bilirubin Ql (U) Negative Normal NEGATIVE [facility] Comment on above: Performed By: #### SHAWN RODRÍGUEZRO #### [facility] [address] [place] [address] Dr. Hans Muniz Clarity (U) CLEAR Normal CLEAR [facility] Comment on above: Performed By: #### SHAWN RODRÍGUEZRO #### [facility] [address] [place] [address] Dr. Hans Muniz Color (U) LT. YELLOW Normal YELLOW [facility] Comment on above: Performed By: #### SHAWN RODRÍGUEZRO #### [facility] [address] [place] [address] Dr. Hans SCHAEFER A micrscopic examination will be performed if indicated. Normal [facility] Comment on above: Performed By: #### Lora SHIRLEY UMICRO #### [facility] [address] [place] [address] Dr. Hans Muniz Glucose Ql (U) Negative Normal NEGATIVE [facility] Comment on above: Performed By: #### Lora SHIRLEY UMICRO #### [facility] [address] [place] [address] Dr. Hans Muniz Hemoglobin Ql (U) Negative Normal NEGATIVE [facility] Comment on above: Performed By: #### Lora SHIRLEY UMICRO #### [facility] [address] [place] [address] Dr. Hans Muniz Ketones Ql (U) Negative Normal NEGATIVE [facility] Comment on above: Performed By: #### Lora SHIRLEY UMICRO #### [facility] [address] [place] [address] Dr. Hans Muniz LEUKOCYTES SMALL Abnormal NEGATIVE [facility] Comment on above: Performed By: #### Lora SHIRLEY UMICRO #### [facility] [address] [place] [address] Dr. Hans Muniz Nitrite Ql (U) Negative Normal NEGATIVE [facility] Comment on above: Performed By: #### Lora SHIRLEY UMICRO #### [facility] [address] [place] [address] Dr. Hans Muniz pH (U) 6.0 [pH] Normal 5-9 [facility] Comment on above: Performed By: #### Lora SHIRLEY UMICRO #### [facility] [address] [place] [address] Dr. Hans Muniz SPEC GRAVITY 1.020 Normal 1.005-<=1.02 5 [facility] Comment on above: Performed By: #### Lora SHIRLEY UMICRO #### [facility] [address] [place] [address] Dr. Hans Muniz UA PROTEIN Negative Normal NEGATIVE/ TRACE [facility] Comment on above: Performed By: #### YANE RODRÍGUEZ #### [facility] [address] [address] [address] Hans Muniz UR MICRO IND INDICATED Normal [facility] Comment on above: Performed By: #### SHAWN RODRÍGUEZRO #### [facility] [address] [place] [address] Dr. Hans Muniz Urobilinogen Qn (U) 0.2 {Mary Ann'U}/dL Normal 0.2 - 1. 0 [facility] Comment on above: Performed By: #### SHAWN RODRÍGUEZRO #### [facility] [address] [place] [address] Dr. Hans Muniz PROF CHEM 8 (BAS METB)on Anion gap [Moles/Vol] 11.7 mmol/L Normal [facility] Comment on above: Performed By: #### G IPANEL #### [facility] [address] [place] [address] Dr. Hans Muniz Calcium [Mass/Vol] 8.2 mg/dL Critically low 8.5-10.1 [facility] Comment on above: Performed By: #### G IPANEL #### [facility] [address] [place] [address] Dr. Hans Muniz Chloride [Moles/Vol] 106 mmol/L Normal 98-107 [facility] Comment on above: Performed By: #### G IPANEL #### [facility] [address] [place] [address] Dr. Hans Muniz CO2 [Moles/Vol] 23.6 mmol/L Normal 21.0-32.0 [facility] Comment on above: Performed By: #### G IPANEL #### [facility] [address] [place] [address] Dr. Hans Muniz Creatinine [Mass/Vol] 0.83 mg/dL Normal 0.55-1.02 [facility] Comment on above: Performed By: #### G IPANEL #### [facility] [address] [place] [address] Dr. Hans Muniz EGFR-AF KUWAITI >60 Normal >=60 [facility] Comment on above: Performed By: #### G IPANEL #### [facility] [address] [address] [address] Hans Muniz EGFR-NON AF KUWAITI >60 Normal >=[address] [facility] Comment on above: Performed By: #### G IPANEL #### [facility] [address] [address] [address] Hans Muniz Glucose [Mass/Vol] 96 mg/dL Normal 74-106 [facility] Comment on above: Performed By: #### G IPANEL #### [facility] [address] [address] [address] Hans Muniz Potassium [Moles/Vol] 3.3 mmol/L Critically low 3.5-5.1 [facility] Comment on above: Performed By: #### G IPANEL #### [facility] [address] [place] [address] Dr. Hans Muniz Sodium [Moles/Vol] 138 mmol/L Normal 136-145 [facility] Comment on above: Performed By: #### G IPANEL #### [facility] [address] [address] [address] Hans Muniz Urea nitrogen [Mass/Vol] 3.0 mg/dL Critically low 7.0-18.0 [facility] Comment on above: Performed By: #### G IPANEL #### [facility] [address] [address] [address] Hans Muniz Urea nitrogen/Creatinine [Mass ratio] 3.6 mg/mg Normal [facility] Comment on above: Performed By: #### G IPANEL #### [facility] [address] [address] [address] Hans Muniz URINE MICROSCOPIC ONLYon BACTERIA SMALL Abnormal NONE SEEN [facility] Comment on above: Performed By: #### YANE RODRÍGUEZ #### [facility] [address] [address] [address] Hans Muniz Bacteria identified Cx Nom (U) INDICATED Normal [facility] Comment on above: Performed By: #### YANE RODRÍGUEZ #### [facility] [address] [place] [address] Dr. Hans Muniz CAST NONE SEEN Normal NONE SEEN [facility] Comment on above: Performed By: #### SHAWN RODRÍGUEZRO #### [facility] [address] [place] [address] Dr. Hans uMniz Crystals LM Nom (Urine sed) NONE SEEN Normal NONE SEEN [facility] Comment on above: Performed By: #### SHAWN RODRÍGUEZRO #### [facility] [address] [place] [address] Dr. Hans Muniz Epithelial cells LM Ql (Urine sed) FEW Abnormal NONE SEEN /RARE [facility] Comment on above: Performed By: #### SHAWN RODRÍGUEZRO #### [facility] [address] [place] [address] Dr. Hans Muniz MUCOUS TRACE Abnormal NONE SEEN [facility] Comment on above: Performed By: #### SHAWN RODRÍGUEZRO #### [facility] [address] [place] [address] Dr. Hans Muniz RBC 2-5 Abnormal 0-2 [facility] Comment on above: Performed By: #### SHAWN RODRÍGUEZRO #### [facility] [address] [place] [address] Dr. Hans Muniz WBC 20-50 Abnormal NONE SEEN [facility] Comment on above: Performed By: #### SHAWN RODRÍGUEZRO #### [facility] [address] [place] [address] Dr. Hans Muniz CBC AUTO DIFFon 06-30-2022 BASO # 0.1 103/ul Normal 0.0-0.1 [facility] Comment on above: Performed By: #### SHAWN RODRÍGUEZRO #### [facility] [address] [place] [address] Dr. Hans Muniz Basophils/100 WBC (Bld) 0.7 % Normal 0.2-2.0 [facility] Comment on above: Performed By: #### SHAWN RODRÍGUEZRO #### [facility] [address] [place] [address] Dr. Hans Muniz EO # 0.2 103/ul Normal 0.0-0.[address] [facility] Comment on above: Performed By: #### SHAWN RODRÍGUEZRO #### [facility] [address] [place] [address] Dr. Hans Muniz Eosinophils/100 WBC (Bld) 2.8 % Normal 0.9-7.[address] [facility] Comment on above: Performed By: #### SHAWN RODRÍGUEZRO #### [facility] [address] [place] [address] Dr. Hans Muniz Erythrocyte distribution width (RBC) [Ratio] 13.0 % Normal 11.0-15.[address] [facility] Comment on above: Performed By: #### MAGALIS RODRÍGUEZICRO #### [facility] [address] [place] [address] Dr. Hans Muniz Hematocrit (Bld) [Volume fraction] 40.8 % Normal 36.0-48.0 [facility] Comment on above: Performed By: #### MAGALIS RODRÍGUEZICRO #### [facility] [address] [place] [address] Dr. Hans Muniz Hemoglobin (Bld) [Mass/Vol] 13.3 g/dL Normal 12.0-16.0 [facility] Comment on above: Performed By: #### MAGALIS RODRÍGUEZICRO #### [facility] [address] [place] [address] Dr. Hans Muniz IG # 0.03 10e3/ul Normal 0.00-0.[address] [facility] Comment on above: Performed By: #### Lora SHIRLEY UMICRO #### [facility] [address] [place] [address] Dr. Hans Muniz IG % 0.4 % Normal 0.0-0.[address] [facility] Comment on above: Performed By: #### Lora SHIRLEY UMICRO #### [facility] [address] [place] [address] Dr. Hans Muniz LYMPH # 3.1 103/ul Normal 1.2-3.[address] [facility] Comment on above: Performed By: #### SHAWN RODRÍGUEZRO #### [facility] [address] [place] [address] Dr. Hans Muniz Lymphocytes/100 WBC (Bld) 43.3 % Normal 20.5-60.0 [facility] Comment on above: Performed By: #### Lora SHIRLEY UMICRO #### [facility] [address] [place] [address] Dr. Hans Muniz MANUAL DIFF REQ NO Normal [facility] Comment on above: Performed By: #### MAGALIS RODRÍGUEZICRO #### [facility] [address] [place] [address] Dr. Hans Muniz MCH (RBC) [Entitic mass] 27.5 pg Normal 26.7-34.0 [facility] Comment on above: Performed By: #### MAGALIS RODRÍGUEZICRO #### [facility] [address] [place] [address] Dr. Hans Muniz MCHC (RBC) [Mass/Vol] 32.6 g/dL Normal 29.9-35.2 [facility] Comment on above: Performed By: #### SHAWN RODRÍGUEZRO #### [facility] [address] [place] [address] Dr. Hans Muniz MCV (RBC) [Entitic vol] 84.5 fL Normal 81.0-99.0 [facility] Comment on above: Performed By: #### SHAWN RODRÍGUEZRO #### [facility] [address] [place] [address] Dr. Hans Muniz MONO # 0.5 103/ul Normal 0.3-0.8 [facility] Comment on above: Performed By: #### SHAWN RODRÍGUEZRO #### [facility] [address] [place] [address] Dr. Hans Muniz Monocytes/100 WBC (Bld) 6.9 % Normal 1.7-12.0 [facility] Comment on above: Performed By: #### SHAWN RODRÍGUEZRO #### [facility] [address] [place] [address] Dr. Hans Muniz NEUT # 3.3 103/ul Normal 1.4-6.[address] [facility] Comment on above: Performed By: #### SHAWN RODRÍGUEZRO #### [facility] [address] [place] [address] Dr. Hans Muniz Neutrophils/100 WBC (Bld) 45.9 % Normal 43.0-75.[address] [facility] Comment on above: Performed By: #### SHAWN RODRÍGUEZRO #### [facility] [address] [place] [address] Dr. Hans Muniz Platelet mean volume (Bld) [Entitic vol] 8.9 fL Critically low 9.5-13.5 [facility] Comment on above: Performed By: #### MAGALIS RODRÍGUEZICRO #### [facility] [address] [place] [address] Dr. Hans Muniz PLT 291 103/ul Normal 150-[address] [facility] Comment on above: Performed By: #### MAGALIS RODRÍGUEZICRO #### [facility] [address] [place] [address] Dr. Hans Muniz RBC 4.83 106/ul Normal 4.20-5.[address] [facility] Comment on above: Performed By: #### MAGALIS RODRÍGUEZICRO #### [facility] [address] [place] [address] Dr. Hans Muniz WBC 7.3 103/ul Normal 4.0-11.[address] [facility] Comment on above: Performed By: #### MAGALIS RODRÍGUEZICRO #### [facility] [address] [place] [address] Dr. Hans Muniz PREG HCG QUALon 06-30-2022 , QUAL Negative Normal NEGATIVE [facility] Comment on above: Performed By: #### Lili URENANEL #### [facility] [address] [place] [address] Dr. Hans Muniz [facility]09 SARS-CoV-2 (COVID-19) RNA BALTAZAR+probe Ql (Unsp spec) Not detected Normal NOT DETECTED [facility] Comment on above: Result Comment: This test is not yet approved or cleared by the [place] FDA. When there are no FDA-approved or cleared tests available, and other criteria are met, FDA can make tests available under an emergency access mechanism called an Emergency Use Authorization (EUA). The EUA for this test is supported by the Animal Care Assistant of Health and Human Service's (HHS's) declaration [...] consistent with SARS-CoV-2. Performed By: #### C [facility] #### [facility] [address] [place] [address] Dr. Hans Muniz US PELVIS AND TRANSVAGon [...] by: ILENE MERCADO Date: 2022-06-19 07:[address] [facility] PAP ACOG PANEL 2: 23 to 31on 01-03-2022 . . Normal [facility] Comment on above: Performed By: #### E FERN UMICRO #### [facility] [address] [place] [address] Dr. Hans Muniz Age Gdln ACOG Testing [facility] Comment on above: Performed By: #### E JENNIFERR, UMICRO #### [facility] [address] [place] [address] Dr. Hans Muniz DIAGNOSIS: Comment [facility] Comment on above: Result Comment: NEGA TIVE FOR INTRAEPITHELIAL LESION OR MALIGNANCY. Performed By: #### E FERN UMICRO #### [facility] [address] [place] [address] Dr. Hans Muniz Methodology: Comment [facility] Comment on above: Result Comment: This liquid based ThinPrep(R) pap test was screened with the use of an image guided system. Performed By: #### Lora SHIRLEY UMICRO #### [facility] [address] [place] [address] Dr. Hans Muniz Note: Comment [facility] Comment on above: Result Comment: The Pap smear is a screening test designed to aid in the detection of premalignant and malignant conditions of the uterine cervix. It is not a diagnostic procedure and should not be used as the sole means of detecting cervical cancer. Both false-positive and false-negative reports do occur. . Performed By: #### Lora SHIRLEY UMICRO #### [facility] [address] [place] [address] Dr. Hans Muniz Performed by: Comment Normal [facility] Comment on above: Result Comment: Marlene Silva, Loom Fixer Apprentice Performed By: #### E FERN UMICRO #### [facility] [address] [place] [address] Dr. Hans Muniz Reflex Criteria: Comment [facility] Comment on above: Result Comment: The HPV DNA reflex criteria were not met with this specimen result therefore, no HPV testing was performed. . Performed By: #### E FERN UMICRO #### [facility] [address] [place] [address] Dr. Hans Muniz Specimen adequacy: Comment Normal [facility] Comment on above: Result Comment: Sati sfactory for evaluation. Endocervical and/or squamous metaplastic cells (endocervical component) are present. Performed By: #### SHAWN RODRÍGUEZRO #### [facility] [address] [address] [address] Hans Muniz CHLAMYDIA/GONOCOCCUS BALTAZAR (SW AB/URINE/PAPon 12-31-2021 Chlamydia trachomatis, BALTAZAR Negative Normal Negative [facility] Comment on above: Performed By: #### G IPANEL #### [facility] [address] [address] [address] Hans Muniz Neisseria gonorrhoeae, BALTAZAR Negative Normal Negative [facility] Comment on above: Performed By: #### G IPANEL #### [facility] [address] [place] [address] Dr. Hans Muniz VAGINITIS/VAGINOSIS DNA PROB Ervin 12-30-2021 Ofe species Negative Normal Negative [facility] Comment on above: Performed By: #### G IPANEL #### [facility] [address] [place] [address] Dr. Hans Muniz Gardnerella vaginalis Positive Abnormal Negative [facility] Comment on above: Performed By: #### G IPANEL #### [facility] [address] [place] [address] Dr. Hans Muniz Trichomonas vaginalis Negative Normal Negative [facility] Comment on above: Performed By: #### G IPANEL #### [facility] [address] [place] [address] Dr. Hans Muniz HEPATITIS PANEL, ACUTEon HBsAg Screen Negative Normal Negative [facility] Comment on above: Performed By: #### SHAWN RODRÍGUEZRO #### [facility] [address] [place] [address] Dr. Hans Muniz Hep A Ab, IgM Negative Normal Negative [facility] Comment on above: Performed By: #### SHAWN RODRÍGUEZRO #### [facility] [address] [place] [address] Dr. Hans Muniz Hep B Core Ab, IgM Negative Normal Negative [facility] Comment on above: Performed By: #### E YANE SHIRLEY #### [facility] [address] [address] [address] Hans Muniz Hep C Virus Ab <0.1 Normal 0.0-0.9 [facility] Comment on above: Result Comment: Nega tive: < 0.8 Indeterminate: 0.8 - 0.9 Positive: > 0.9 . The CDC recommends that a positive HCV antibody result be followed up with a HCV Nucleic Acid Amplification test (013825). Effective February 06, 2022 Hepatitis Panel (4) will be made non-orderable. [facility] offers order code [id number] Acute Hepatitis. Performed By: #### YAEN RODRÍGUEZ #### [facility] [address] [place] [address] Dr. Hans Muniz HERPES SIMPLEX 1/2 IGGon HSV 1 IgG, Type Spec 37.40 index Critically high 0.00-0.90 [facility] Comment on above: Result Comment: Nega tive <0.91 Equivocal 0.91 - 1.09 Positive >1.09 Note: Negative indicates no antibodies detected to HSV-1. Equivocal may suggest early infection. If clinically appropriate, retest at later date. Positive indicates antibodies detected to HSV-1. Performed By: #### H SV IGG #### [facility] [address] [place] [address] Dr. Hans Muniz HSV 2 IgG Type Spec <0.91 Normal 0.00-0.90 [facility] Comment on above: Result Comment: Nega tive <0.91 Equivocal 0.91 - 1.09 Positive >1.09 Note: Negative indicates no HSV-2 antibodies detected. Positive indicates HSV-2 antibodies detected. Equivocal and low positive HSV-2 screens (Index 0.91-5.00) may be false positive and are reflexed to supplemental testing in accordance with CDC guidelines. Performed By: #### H SV IGG #### [facility] [address] [place] [address] Dr. Hans Muniz HERPES SIMPLEX 1/2 IGMon HSV, IgM I/II Combination <0.91 Normal 0.00-0.90 [facility] Comment on above: Result Comment: Nega tive <0.91 Equivocal 0.91 - 1.09 Positive >1.09 Performed By: #### H SVIGM #### [facility] [address] [place] [address] Dr. Hans Muniz HIV 1 AND 2 WITH REFLEXon HIV Screen 4th Generation wRfx Non-Reactive Normal Non Reactive [facility] Comment on above: Result Comment: HIV Negative HIV-1/HIV-2 antibodies and HIV-1 p24 antigen were NOT detected. There is no laboratory evidence of HIV infection. Performed By: #### G IPANEL #### [facility] [address] [place] [address] Dr. Hans Muniz RPR QUANTon 12-29-2021 Rapid Plasma Reagin, Quant Non-Reactive Normal NonRea<1:1 [facility] Comment on above: Performed By: #### SHAWN RODRÍGUEZRO #### [facility] [address] [place] [address] Dr. Hans Muniz CBC AUTO DIFFon 11-23-2021 BASO # 0.0 103/ul Normal 0.0-0.1 [facility] Comment on above: Performed By: #### Lora SHIRLEY UMICRO #### [facility] [address] [place] [address] Dr. Hans Muniz Basophils/100 WBC (Bld) 0.7 % Normal 0.2-2.0 [facility] Comment on above: Performed By: #### Lora SHIRLEY UMICRO #### [facility] [address] [place] [address] Dr. Hans Muniz EO # 0.1 103/ul Normal 0.0-0.7 [facility] Comment on above: Performed By: #### E FERN UMICRO #### [facility] [address] [place] [address] Dr. Hans Muniz Eosinophils/100 WBC (Bld) 1.2 % Normal 0.9-7.0 [facility] Comment on above: Performed By: #### YANE RODRÍGUEZ #### [facility] [address] [place] [address] Dr. Hans Muniz Erythrocyte distribution width (RBC) [Ratio] 14.1 % Normal 11.0-15.0 [facility] Comment on above: Performed By: #### YANE RODRÍGUEZ #### [facility] [address] [place] [address] Dr. Hans Muniz Hematocrit (Bld) [Volume fraction] 41.3 % Normal 36.0-48.[address] [facility] Comment on above: Performed By: #### YANE RODRÍGUEZ #### [facility] [address] [place] [address] Dr. Hans Muniz Hemoglobin (Bld) [Mass/Vol] 13.3 g/dL Normal 12.0-16.0 [facility] Comment on above: Performed By: #### YANE RODRÍGUEZ #### [facility] [address] [place] [address] Dr. Hans Muniz IG # 0.01 10e3/ul Normal 0.00-0.03 [facility] Comment on above: Performed By: #### YANE RODRÍGUEZ #### [facility] [address] [place] [address] Dr. Hans Muniz IG % 0.2 % Normal 0.0-0.5 [facility] Comment on above: Performed By: #### YANE RODRÍGUEZ #### [facility] [address] [place] [address] Dr. Hans Muniz LYMPH # 1.1 103/ul Critically low 1.2-3.8 [facility] Comment on above: Performed By: #### SHAWN RODRÍGUEZRO #### [facility] [address] [place] [address] Dr. Hans Muniz Lymphocytes/100 WBC (Bld) 25.2 % Normal 20.5-60.0 [facility] Comment on above: Performed By: #### SHAWN RODRÍGUEZRO #### [facility] [address] [address] [address] Hans Muniz MANUAL DIFF REQ NO Normal [facility] Comment on above: Performed By: #### Lora SHIRLEY UMICRO #### [facility] [address] [address] [address] Hans Muniz MCH (RBC) [Entitic mass] 26.7 pg Normal 26.7-34.0 [facility] Comment on above: Performed By: #### Lora SHIRLEY UMICRO #### [facility] [address] [place] [address] Dr. Hans Muniz MCHC (RBC) [Mass/Vol] 32.2 g/dL Normal 29.9-35.2 [facility] Comment on above: Performed By: #### Lora SHIRLEY UMICRO #### [facility] [address] [place] [address] Dr. Hans Muniz MCV (RBC) [Entitic vol] 82.8 fL Normal 81.0-99.0 [facility] Comment on above: Performed By: #### Lora SHIRLEY UMICRO #### [facility] [address] [place] [address] Dr. Hans Muniz MONO # 0.4 103/ul Normal 0.3-0.8 [facility] Comment on above: Performed By: #### Lora SHIRLEY UMICRO #### [facility] [address] [place] [address] Dr. Hans Muniz Monocytes/100 WBC (Bld) 9.3 % Normal 1.7-12.0 [facility] Comment on above: Performed By: #### Lora SHIRLEY UMICRO #### [facility] [address] [place] [address] Dr. Hans Muniz NEUT # 2.7 103/ul Normal 1.4-6.5 [facility] Comment on above: Performed By: #### Lora SHIRLEY, UMICRO #### [facility] [address] [place] [address] Dr. Hans Muniz Neutrophils/100 WBC (Bld) 63.4 % Normal 43.0-75.0 [facility] Comment on above: Performed By: #### Lora SHIRLEY ICRO #### [facility] [address] [place] [address] Dr. Hans Muniz Platelet mean volume (Bld) [Entitic vol] 9.6 fL Normal 9.5-13.5 [facility] Comment on above: Performed By: #### Lora SHIRLEY ICRO #### [facility] [address] [place] [address] Dr. Hnas Muniz PLT 252 103/ul Normal 150-450 [facility] Comment on above: Performed By: #### Lora SHIRLEY ICRO #### [facility] [address] [place] [address] Dr. Hans Muniz RBC 4.99 106/ul Normal 4.20-5.40 [facility] Comment on above: Performed By: #### Lora SHIRLEY [facility] #### [facility] [address] [place] [address] Dr. Hans Muniz WBC 4.2 103/ul Normal 4.0-11.0 [facility] Comment on above: Performed By: #### Lora SHIRLEY [facility] #### [facility] [address] [place] [address] Dr. Hans Muniz GI PANEL (PCR)on 11-23-2021 Adenovirus F 40/41 Not detected Normal NOT DETECTED [facility] Comment on above: Performed By: #### G IPANEL #### [facility] [address] [place] [address] Dr. Hans Muniz Astrovirus Detected Abnormal NOT DETECTED [facility] Comment on above: Performed By: #### G IPANEL #### [facility] [address] [place] [address] Dr. Hans Muniz C. Diff toxin A/B Detected Critically abnormal NOT DETECTED [facility] Comment on above: Performed By: #### G IPANEL #### [facility] [address] [place] [address] Dr. Hans Muniz Campylobacter Not detected Normal NOT DETECTED [facility] Comment on above: Performed By: #### G IPANEL #### [facility] [address] [address] [address] Hans Muniz Cryptosporidium Not detected Normal NOT DETECTED [facility] Comment on above: Performed By: #### G IPANEL #### [facility] [address] [place] [address] Dr. Hans Muniz Cyclos. Cayetanensis Not detected Normal NOT DETECTED [facility] Comment on above: Performed By: #### G IPANEL #### [facility] [address] [address] [address] Hans Muniz E. Coli O157 Not Applicable Normal Not Applicable [facility] Comment on above: Performed By: #### G IPANEL #### [facility] [address] [place] [address] Dr. Hans Muniz E. histolytica Not detected Normal NOT DETECTED [facility] Comment on above: Performed By: #### G IPANEL #### [facility] [address] [place] [address] Dr. Hans Muniz EAEC Not detected Normal NOT DETECTED [facility] Comment on above: Performed By: #### G IPANEL #### [facility] [address] [place] [address] Dr. Hans Muniz EIEC Not detected Normal NOT DETECTED [facility] Comment on above: Performed By: #### G IPANEL #### [facility] [address] [place] [address] Dr. Hans Muniz EPEC Not detected Normal NOT DETECTED [facility] Comment on above: Performed By: #### G IPANEL #### [facility] [address] [place] [address] Dr. Hans Muniz ETEC Not detected Normal NOT DETECTED [facility] Comment on above: Performed By: #### G IPANEL #### [facility] [address] [place] [address] Dr. Hans Pearson. Lamblia Not detected Normal NOT DETECTED [facility] Comment on above: Performed By: #### G IPANEL #### [facility] [address] [place] [address] Dr. Hans NORIEGA CONTROLS PASSED Normal [facility] Comment on above: Performed By: #### G IPANEL #### [facility] [address] [address] [address] Hans RAMIREZ HEADER GI PANEL BACTERIA Normal [facility] Comment on above: Performed By: #### G IPANEL #### [facility] [address] [address] [address] Hans CORONADO ECOLI GI PANEL DIARRHEAGENIC E.COLI / SHIGELLA Normal [facility] Comment on above: Performed By: #### G IPANEL #### [facility] [address] [address] [address] Hans CORONADO INFO SEE BELOW [facility] Comment on above: Result Comment: EAEC - Enteroaggregative E. Coli EPEC- Enteropathogenic E. Coli ETEC- Enterotoxigenic E. Coli lt/st STEC- Shigella-like toxin-producing E. Coli stx1/stx2 EIEC- Shigella/Enteroinvasive E. Coli Performed By: #### G IPANEL #### [facility] [address] [place] [address] Dr. Hans CORONADO PARASITES GI PANEL PARASITES Normal [facility] Comment on above: Performed By: #### G IPANEL #### [facility] [address] [address] [address] Hans CORONADO VIRUS GI PANEL VIRUSES Normal [facility] Comment on above: Performed By: #### G IPANEL #### [facility] [address] [place] [address] Dr. Hans Muniz Norovirus GI/GII Not detected Normal NOT DETECTED [facility] Comment on above: Performed By: #### G IPANEL #### [facility] [address] [place] [address] Dr. Hans Muniz P. Shigelloides Not detected Normal NOT DETECTED [facility] Comment on above: Performed By: #### G IPANEL #### [facility] [address] [address] [address] Hans Muniz Rotavirus A Not detected Normal NOT DETECTED [facility] Comment on above: Performed By: #### G IPANEL #### [facility] [address] [place] [address] Dr. Hans Muniz Salmonella Not detected Normal NOT DETECTED [facility] Comment on above: Performed By: #### G IPANEL #### [facility] [address] [place] [address] Dr. Hans Muniz Sapovirus Not detected Normal NOT DETECTED [facility] Comment on above: Performed By: #### G IPANEL #### [facility] [address] [place] [address] Dr. Hans Muniz STEC Not detected Normal NOT DETECTED [facility] Comment on above: Performed By: #### G IPANEL #### [facility] [address] [place] [address] Dr. Hans Muniz Vibrio Not detected Normal NOT DETECTED [facility] Comment on above: Performed By: #### G IPANEL #### [facility] [address] [place] [address] Dr. Hans Muniz Vibrio Cholera Not detected Normal NOT DETECTED [facility] Comment on above: Performed By: #### G IPANEL #### [facility] [address] [place] [address] Dr. Hans Muniz Y. Enterocolitica Not detected Normal NOT DETECTED [facility] Comment on above: Performed By: #### G IPANEL #### [facility] [address] [place] [address] Dr. Hans Muniz PROF 14(COMP METB)on 022 Albumin [Mass/Vol] 3.6 g/dL Normal 3.5-5.0 [facility] Comment on above: Performed By: #### G IPANEL #### [facility] [address] [place] [address] Dr. Hans Muniz Albumin/Globulin [Mass ratio] 0.9 {ratio} Normal [facility] Comment on above: Performed By: #### G IPANEL #### [facility] [address] [place] [address] Dr. Hans Muniz ALP [Catalytic activity/Vol] 80 U/L Normal 38-126 [facility] Comment on above: Performed By: #### G IPANEL #### [facility] [address] [place] [address] Dr. Hans Muniz ALT [Catalytic activity/Vol] 41 U/L Normal 9-52 [facility] Comment on above: Performed By: #### G IPANEL #### [facility] [address] [address] [address] Hans Muniz Anion gap [Moles/Vol] 9.8 mmol/L Normal [facility] Comment on above: Performed By: #### G IPANEL #### [facility] [address] [place] [address] Dr. Hans Muniz AST [Catalytic activity/Vol] 34 U/L Normal 14-36 [facility] Comment on above: Performed By: #### G IPANEL #### [facility] [address] [place] [address] Dr. Hans Muniz Bilirubin [Mass/Vol] 0.3 mg/dL Normal 0.2-1.3 [facility] Comment on above: Performed By: #### G IPANEL #### [facility] [address] [place] [address] Dr. Hans Muniz Calcium [Mass/Vol] 8.8 mg/dL Normal 8.4-10.2 [facility] Comment on above: Performed By: #### G IPANEL #### [facility] [address] [place] [address] Dr. Hans Muniz Chloride [Moles/Vol] 105 mmol/L Normal 98-107 [facility] Comment on above: Performed By: #### G IPANEL #### [facility] [address] [address] [address] Hans Muniz CO2 [Moles/Vol] 24.2 mmol/L Normal 22.0-30.0 [facility] Comment on above: Performed By: #### G IPANEL #### [facility] [address] [address] [address] Hans Muniz Creatinine [Mass/Vol] 0.76 mg/dL Normal 0.52-1.04 [facility] Comment on above: Performed By: #### G IPANEL #### [facility] [address] [address] [address] Hans Muniz EGFR-AF KUWAITI >60 Normal >=60 [facility] Comment on above: Performed By: #### G IPANEL #### [facility] [address] [address] [address] Hans Muniz EGFR-NON AF KU[place]I >60 Normal >=60 [facility] Comment on above: Performed By: #### G IPANEL #### [facility] [address] [address] [address] Hans Muniz Globulin (S) [Mass/Vol] 4.1 g/dL Normal [facility] Comment on above: Performed By: #### G IPANEL #### [facility] [address] [place] [address] Dr. Hans Muniz Glucose [Mass/Vol] 99 mg/dL Normal 74-106 [facility] Comment on above: Performed By: #### G IPANEL #### [facility] [address] [address] [address] Hans Muniz Potassium [Moles/Vol] 3.0 mmol/L Critically low 3.4-5.0 [facility] Comment on above: Performed By: #### G IPANEL #### [facility] [address] [place] [address] Dr. Hans Muniz Protein [Mass/Vol] 7.7 g/dL Normal 6.1-8.2 [facility] Comment on above: Performed By: #### G IPANEL #### [facility] [address] [address] [address] Hans Muniz Sodium [Moles/Vol] 135 mmol/L Critically low 137-145 [facility] Comment on above: Performed By: #### G IPANEL #### [facility] [address] [address] [address] Hans Muniz Urea nitrogen [Mass/Vol] 10.0 mg/dL Normal 7.0-17.0 [facility] Comment on above: Performed By: #### G IPANEL #### [facility] [address], [place] [address] Dr. Hans Muniz Urea nitrogen/Creatinine [Mass ratio] 13.2 mg/mg Normal [facility] Comment on above: Performed By: #### G IPANEL #### [facility] [address] [place], [place] [address] Dr. Hans Muniz XR CHEST 2 Von 11-16-2021 XR CHEST 2 V This study was read during a downtime in the [employer] PACS system. The actual time dictated and [...] by: MELINDA LANE Date: 2021-11-16 10:10 Normal [facility] XR RIBS RT NO CH 2Von 2021 XR RIBS RT NO CH 2V EXAMINATION: XR RIBS RT NO CH 2V HISTORY: Pleuritic pain COMPARISON: No relevant comparison available. FINDINGS: RIBS: Normal. No significant arthropathy or acute abnormality. LUNGS: No appreciable pneumothorax or pleural thickening. OTHER: Negative. IMPRESSION: 1. No appreciable right rib abnormality. Electronically authenticated by: ILENE MERCADO Date: 2021-11-16 06:53 Normal [facility] MG MAMM DIAGNOSTIC 3D POLINA CA Don 11-15-2021 MG MAMM DIAGNOSTIC 3D POLINA CAD Patient: BRIAN SULLIVAN Exam Date: 11/15/2021 : 1995 Gender:F Ordering : DR SHAUN AVILES Admission #: [id number] Family : Order #: [id number] CLICK HERE TO VIEW EXAM RADIOLOGY REPORT [...] ovarian cancer at age 52. LOCATION: [facility] BREAST COMPOSITION: Extremely dense, which lowers [...] M.D. on 11/15/2021 at 12:[address] [facility] US BREAST POLINA LIMITEDon 02-0 US BREAST POLINA LIMITED Patient: BRIAN SULLIVAN Exam Date: 11/15/2021 : 1995 Gender:F Ordering : DR SHAUN AVILES Admission #: [id number] Family : Order #: [id number] CLICK HERE TO VIEW EXAM RADIOLOGY REPORT [...] ovarian cancer at age 52. LOCATION: [facility] BREAST COMPOSITION: Extremely dense, which lowers [...] M.D. on 11/15/2021 at 12:[address] [facility] FERRITINon 09-29-2021 Ferritin [Mass/Vol] 12 ng/mL Critically low 15-150 [facility] Comment on above: Performed By: #### G IPANEL #### [facility] [address] [place] [address] Dr. Hans Muniz VIT D 25-OH [employer]on 2020 Vitamin D, 25-Hydroxy 29.8 ng/mL Critically low 30.0-100.0 [facility] Comment on above: Result Comment: Adeel min D deficiency has been defined by the [place] [employer] and an Endocrine Society practice guideline as a level of serum 25-OH vitamin D less than 20 ng/mL (1,2). The Endocrine Society went on to further define vitamin D insufficiency as a level between 21 and 29 ng/mL (2). 1. IOM ([place] [employer]). 2010. Dietary reference intakes for calcium and D. [place]: The National Academies Press. 2. Monique JARAMILLO, Tatum SAVAGE, Matt TAYLOR, et al. Evaluation, treatment, and prevention of vitamin D deficiency: an Endocrine Society clinical practice guideline. JCEM. 2010; 96(7):1911-30. Performed By: #### G IPANEL #### [facility] [address] [place] [address] Dr. Hans Muniz CBC AUTO DIFFon 09-28-2021 BASO # 0.0 103/ul Normal 0.0-0.1 [facility] Comment on above: Performed By: #### G IPANEL #### [facility] [address] [place] [address] Dr. Hans Muniz Basophils/100 WBC (Bld) 0.4 % Normal 0.2-2.0 [facility] Comment on above: Performed By: #### G IPANEL #### [facility] [address] [place] [address] Dr. Hans Muniz EO # 0.2 103/ul Normal 0.0-0.7 [facility] Comment on above: Performed By: #### G IPANEL #### [facility] [address] [place] [address] Dr. Hans Muniz Eosinophils/100 WBC (Bld) 3.1 % Normal 0.9-7.0 [facility] Comment on above: Performed By: #### G IPANEL #### [facility] [address] [place] [address] Dr. Hans Muniz Erythrocyte distribution width (RBC) [Ratio] 14.3 % Normal 11.0-15.0 [facility] Comment on above: Performed By: #### G IPANEL #### [facility] [address] [place] [address] Dr. Hans Muniz Hematocrit (Bld) [Volume fraction] 38.3 % Normal 36.0-48.0 [facility] Comment on above: Performed By: #### G IPANEL #### [facility] [address] [address] [address] Hans Muniz Hemoglobin (Bld) [Mass/Vol] 12.0 g/dL Normal 12.0-16.0 [facility] Comment on above: Performed By: #### G IPANEL #### [facility] [address] [address] [address] Hans Muniz IG # 0.02 10e3/ul Normal 0.00-0.03 [facility] Comment on above: Performed By: #### G IPANEL #### [facility] [address] [address] [address] Hans Muniz IG % 0.3 % Normal 0.0-0.5 [facility] Comment on above: Performed By: #### G IPANEL #### [facility] [address] [address] [address] Hans Muniz LYMPH # 1.9 103/ul Normal 1.2-3.8 [facility] Comment on above: Performed By: #### G IPANEL #### [facility] [address] [address] [address] Hans Muniz Lymphocytes/100 WBC (Bld) 27.4 % Normal 20.5-60.0 [facility] Comment on above: Performed By: #### G IPANEL #### [facility] [address] [address] [address] Hans Muniz MANUAL DIFF REQ NO Normal [facility] Comment on above: Performed By: #### G IPANEL #### [facility] [address] [address] [address] Hans Muniz MCH (RBC) [Entitic mass] 26.2 pg Critically low 26.7-34.0 [facility] Comment on above: Performed By: #### G IPANEL #### [facility] [address] [address] [address] Hans Muniz MCHC (RBC) [Mass/Vol] 31.3 g/dL Normal 29.9-35.2 [facility] Comment on above: Performed By: #### G IPANEL #### [facility] [address] [address] [address] Hans Muniz MCV (RBC) [Entitic vol] 83.6 fL Normal 81.0-99.0 [facility] Comment on above: Performed By: #### G IPANEL #### [facility] [address] [address] [address] Hans Muniz MONO # 0.3 103/ul Normal 0.3-0.8 [facility] Comment on above: Performed By: #### G IPANEL #### [facility] [address] [place] [address] Dr. Hans Muniz Monocytes/100 WBC (Bld) 4.4 % Normal 1.7-12.0 [facility] Comment on above: Performed By: #### G IPANEL #### [facility] [address] [place] [address] Dr. Hans Muniz NEUT # 4.3 103/ul Normal 1.4-6.5 [facility] Comment on above: Performed By: #### G IPANEL #### [facility] [address] [place] [address] Dr. Hans Muniz Neutrophils/100 WBC (Bld) 64.4 % Normal 43.0-75.0 [facility] Comment on above: Performed By: #### G IPANEL #### [facility] [address] [place] [address] Dr. Hans Muniz Platelet mean volume (Bld) [Entitic vol] 9.5 fL Normal 9.5-13.5 [facility] Comment on above: Performed By: #### G IPANEL #### [facility] [address] [place] [address] Dr. Hans Muniz PLT 296 103/ul Normal 150-450 [facility] Comment on above: Performed By: #### G IPANEL #### [facility] [address] [place] [address] Dr. Hans Muniz RBC 4.58 106/ul Normal 4.20-5.40 [facility] Comment on above: Performed By: #### G IPANEL #### [facility] [address] [address] [address] Hans Muniz WBC 6.8 103/ul Normal 4.0-11.0 [facility] Comment on above: Performed By: #### G IPANEL #### [facility] [address] [address] [address] Hans Muniz FREE T4on 09-28-2021 Free T4 [Mass/Vol] 1.04 ng/dL Normal 0.78-2.19 [facility] Comment on above: Performed By: #### F T4 #### [facility] [address] [address] [address] Hans Muniz GLYCOHEMOGLOBIN A1Con 2020 ADA RECOMMENDATION ADA THERAPEUTIC TARGET 6.0 - 7.0 ACTION SUGGESTED > 7.0 Normal [facility] Comment on above: Performed By: #### G IPANEL #### [facility] [address] [place] [address] Dr. Hans Muniz Glucose [Mass/Vol] 91 mg/dL Normal [facility] Comment on above: Performed By: #### G IPANEL #### [facility] [address] [place] [address] Dr. Hans Muniz HbA1c (Bld) [Mass fraction] 4.8 % Normal <=6.0 [facility] Comment on above: Performed By: #### G IPANEL #### [facility] [address] [place] [address] Dr. Hans Muniz LIPID PROFILEon 09-28-2021 CHOL-HDL RATIO NORM SEE BELOW Normal [facility] Comment on above: Result Comment: 3.3 - 4.4 LOW RISK 4.4 - 7.1 AVERAGE RISK 7.1 - 11.0 MODERATE RISK >11.0 HIGH RISK Performed By: #### L IPID, TSH, CMP #### [facility] [address] [place] [address] Dr. Hans Muniz Cholesterol [Mass/Vol] 156 mg/dL Normal <=200 [facility] Comment on above: Performed By: #### L IPID, TSH, CMP #### [facility] [address] [address] [address] Hans Muniz Cholesterol in HDL [Mass/Vol] 46 mg/dL Normal [facility] Comment on above: Performed By: #### L IPID, TSH, CMP #### [facility] [address] [address] [address] Hans Muniz Cholesterol in LDL [Mass/Vol] 92.0 mg/dL Normal [facility] Comment on above: Performed By: #### L IPID, TSH, CMP #### [facility] [address] [address] [address] Hans Muniz Cholesterol.total/Corina sterol in HDL [Mass ratio] 3.4 {ratio} Normal [facility] Comment on above: Performed By: #### L IPID, TSH, CMP #### [facility] [address] [address] [address] Hans Muniz HDL NORMAL > or = 60 mg/dl - LO W CARDIOVASCULAR RISK <40 mg/dl - HIGH CARDIOVASCULAR RISK Normal [facility] Comment on above: Performed By: #### L IPID, TSH, CMP #### [facility] [address] [address] [address] Hans Muniz LDL CALC NORMAL SEE BELOW Normal [facility] Comment on above: Result Comment: <100 mg/dl OPTIMAL 100 - 129 mg/dl NEAR OR ABOVE OPTIMAL 130 - 159 mg/dl BORDERLINE HIGH 160 - 189 mg/dl HIGH >190 mg/dl VERY HIGH Performed By: #### L IPID, TSH, CMP #### [facility] [address] [address] [address] Hans Muniz Triglyceride [Mass/Vol] 90 mg/dL Normal <=150 [facility] Comment on above: Performed By: #### L IPID, TSH, CMP #### [facility] [address] [address] [address] Hans Muniz VLDL CALC 18.0 mg/dL Normal [facility] Comment on above: Performed By: #### L IPID, TSH, CMP #### [facility] [address] [address] [address] Hans Muniz PROF 14(COMP METB)on 021 Albumin [Mass/Vol] 3.3 g/dL Critically low 3.5-5.0 [facility] Comment on above: Performed By: #### SHAWN RODRÍGUEZRO #### [facility] [address] [address] [address] Hans Muniz Albumin/Globulin [Mass ratio] 0.8 {ratio} Normal [facility] Comment on above: Performed By: #### Lora SHIRLEY UMICRO #### [facility] [address] [address] [address] Hans Muniz ALP [Catalytic activity/Vol] 72 U/L Normal 38-126 [facility] Comment on above: Performed By: #### Lora SHIRLEY UMRACHELRO #### [facility] [address] [place] [address] Dr. Hans Muniz ALT [Catalytic activity/Vol] 41 U/L Normal 9-52 [facility] Comment on above: Performed By: #### Lora SHIRLEY UMICRO #### [facility] [address] [address] [address] Hans Muniz Anion gap [Moles/Vol] 11.5 mmol/L Normal [facility] Comment on above: Performed By: #### Lora SHIRLEY UMICRO #### [facility] [address] [place] [address] Dr. Hans Muniz AST [Catalytic activity/Vol] 22 U/L Normal 14-36 [facility] Comment on above: Performed By: #### Lora SHIRLEY, UMICRO #### [facility] [address] [address] [address] Hans Muniz Bilirubin [Mass/Vol] 0.6 mg/dL Normal 0.2-1.3 [facility] Comment on above: Performed By: #### Lora SHIRLEY, UMICRO #### [facility] [address] [address] [address] Hans Muniz Calcium [Mass/Vol] 8.7 mg/dL Normal 8.4-10.2 [facility] Comment on above: Performed By: #### Lora SHIRLEY UMICRO #### [facility] [address] [address] [address] Hans Muniz Chloride [Moles/Vol] 105 mmol/L Normal 98-107 [facility] Comment on above: Performed By: #### Lora SHIRLEY UMICRO #### [facility] [address] [place] [address] Dr. Hans Muniz CO2 [Moles/Vol] 25.0 mmol/L Normal 22.0-30.0 [facility] Comment on above: Performed By: #### Lora SHIRLEY UMICRO #### [facility] [address] [place] [address] Dr. Hans Muniz Creatinine [Mass/Vol] 0.68 mg/dL Normal 0.52-1.04 [facility] Comment on above: Performed By: #### Lora SHIRLEY UMICRO #### [facility] [address] [place] [address] Dr. Hans Muniz EGFR-AF KUWAITI >60 Normal >=60 [facility] Comment on above: Performed By: #### Lroa SHRILEY UMICRO #### [facility] [address] [place] [address] Dr. Hans Muniz EGFR-NON AF [place]I >60 Normal >=60 [facility] Comment on above: Performed By: #### Lora SHIRLEY UMICRO #### [facility] [address] [place] [address] Dr. Hans Muniz Globulin (S) [Mass/Vol] 3.9 g/dL Normal [facility] Comment on above: Performed By: #### Lora SHIRLEY UMICRO #### [facility] [address] [place] [address] Dr. Hans Muniz Glucose [Mass/Vol] 80 mg/dL Normal 74-106 [facility] Comment on above: Performed By: #### Lora SHIRLEY UMICRO #### [facility] [address] [place] [address] Dr. Hans Muniz Potassium [Moles/Vol] 3.5 mmol/L Normal 3.4-5.0 [facility] Comment on above: Performed By: #### YANE RODRÍGUEZ #### [facility] [address] [place] [address] Dr. Hans Muniz Protein [Mass/Vol] 7.2 g/dL Normal 6.1-8.2 [facility] Comment on above: Performed By: #### SHAWN RODRÍGUEZRO #### [facility] [address] [place] [address] Dr. Hans Muniz Sodium [Moles/Vol] 138 mmol/L Normal 137-145 [facility] Comment on above: Performed By: #### SHAWN RODRÍGUEZRO #### [facility] [address] [place] [address] Dr. Hans Muniz Urea nitrogen [Mass/Vol] 6.0 mg/dL Critically low 7.0-17.0 [facility] Comment on above: Performed By: #### SHAWN RODRÍGUEZRO #### [facility] [address] [place] [address] Dr. Hans Muniz Urea nitrogen/Creatinine [Mass ratio] 8.8 mg/mg Normal [facility] Comment on above: Performed By: #### YANE RODRÍGUEZ #### [facility] [address] [place] [address] Dr. Hans Muniz TSHon 09-28-2021 TSH 0.629 uIU/mL Normal 0.470-4.680 [facility] Comment on above: Performed By: #### SHAWN RODRÍGUEZRO #### [facility] [address] [place] [address] Dr. Hans Muniz TSH RANGE SEE BELOW Normal [facility] Comment on above: Result Comment: <0.3 4 UIU/ml HYPERTHYROID 0.34-5.60 UIU/ml EUTHYROID >5.60 UIU/ml HYPOTHYROID Performed By: #### SHAWN RODRÍGUEZRO #### [facility] [address] [place] [address] Dr. Hans Muniz Vital Signs Date Time Vital Sign Value Performing Clinician Facility 03-16-2025 12:39-0400 Body height 160.02 cm [facility] 03-16-2025 12:39-0400 Body mass index (BMI) [Ratio] 23.2 kg/m2 [facility] 03-16-2025 12:39-0400 Body weight 59.42 kg [facility] 03-16-2025 12:39-0400 Diastolic blood pressure 58 mm[Hg] [facility] 03-16-2025 12:39-0400 Heart rate 82 /min [facility] 03-16-2025 12:39-0400 Respiratory rate 16 /min [facility] 03-16-2025 12:39-0400 SaO2% (BldA) [Mass fraction] 98 % [facility] 03-16-2025 12:39-0400 Systolic blood pressure 100 mm[Hg] [facility] 01-05-2025 14:03-0400 Body mass index (BMI) [Ratio] 23.99 kg/m2 Ghanshyam Emilia DO Work Phone: [facility] 01-05-2025 14:03-0400 Body weight 61.42 kg Ghanshyam Emilia DO Work Phone: [facility] 01-05-2025 14:03-0400 Diastolic blood pressure 70 mm[Hg] Ghanshyam Emilia DO Work Phone: [facility] 01-05-2025 14:03-0400 Systolic blood pressure 110 mm[Hg] Ghanshyam Emilia DO Work Phone: [facility] 12-23-2024 12:37-0400 Body height 160.02 cm [facility] 12-23-2024 12:37-0400 Body mass index (BMI) [Ratio] 24 kg/m2 [facility] 12-23-2024 12:37-0400 Body weight 61.68 kg [facility] 12-23-2024 12:37-0400 Diastolic blood pressure 62 mm[Hg] [facility] 12-23-2024 12:37-0400 Heart rate 74 /min [facility] 12-23-2024 12:37-0400 Respiratory rate 18 /min [facility] 12-23-2024 12:37-0400 SaO2% (BldA) [Mass fraction] 98 % [facility] 12-23-2024 12:37-0400 Systolic blood pressure 108 mm[Hg] [facility] 11-11-2024 13:56-0500 Body height 160.02 cm [facility] 11-11-2024 13:56-0500 Body mass index (BMI) [Ratio] 23.7 kg/m2 [facility] 11-11-2024 13:56-0500 Body weight 60.78 kg [facility] 11-11-2024 13:56-0500 Diastolic blood pressure 70 mm[Hg] [facility] 11-11-2024 13:56-0500 Heart rate 83 /min [facility] 11-11-2024 13:56-0500 Systolic blood pressure 118 mm[Hg] [facility] 08-26-2024 13:47-0500 Body height 160.02 cm Shaun Monzons DO Work Phone: [facility] 08-26-2024 13:47-0500 Body mass index (BMI) [Ratio] 23.9 kg/m2 Shaunjairon Monzons DO Work Phone: [facility] 08-26-2024 13:47-0500 Body weight 61.23 kg Shaun Monzons DO Work Phone: [facility] 08-26-2024 13:47-0500 Diastolic blood pressure 64 mm[Hg] Shaun Monzons DO Work Phone: [facility] 08-26-2024 13:47-0500 Heart rate 72 /min Shaun Nicoláss DO Work Phone: [facility] 08-26-2024 13:47-0500 Respiratory rate 18 /min Shaun Nicoláss DO Work Phone: [facility] 08-26-2024 13:47-0500 SaO2% (BldA) [Mass fraction] 97 % Shaunjairon Monzons DO Work Phone: [facility] 08-26-2024 13:47-0500 Systolic blood pressure 106 mm[Hg] Shaun Monzons DO Work Phone: [facility] 07-31-2024 13:02-0400 Body mass index (BMI) [Ratio] 23.2 kg/m2 DO Shaun Aviles Work Phone: [facility] 07-31-2024 13:02-0400 Diastolic blood pressure 77 mm[Hg] DO Shaun vAiles Work Phone: [facility] 07-31-2024 13:02-0400 Heart rate 83 /min DO Shaun Aviles Work Phone: [facility] 07-31-2024 13:02-0400 Systolic blood pressure 110 mm[Hg] DO Shaun Aviles Work Phone: [facility] 07-31-2024 12:58-0400 Body height 160.02 cm DO Shaun Aviles Work Phone: [facility] 07-31-2024 12:58-0400 Body weight 59.42 kg DO Shaun Aviles Work Phone: [facility] 07-10-2024 15:49-0400 Body temperature 98.01 [degF] Cassandra Hemmer PA Work Phone: [facility] 07-10-2024 15:49-0400 Diastolic blood pressure 80 mm[Hg] Cassandra Hemmer PA Work Phone: [facility] 07-10-2024 15:49-0400 Heart rate 75 /min Cassandra Hemmer PA Work Phone: [facility] 07-10-2024 15:49-0400 SaO2% (BldA) [Mass fraction] 98 % Cassandra Hemmer PA Work Phone: [facility] 07-10-2024 15:49-0400 Systolic blood pressure 110 mm[Hg] Cassandra Hemmer PA Work Phone: [facility] 07-01-2024 14:50-0400 Diastolic blood pressure 63 mm[Hg] DO Shaunjairon Aviles Work Phone: [facility] 07-01-2024 14:50-0400 Heart rate 56 /min DO Shaun Aviles Work Phone: [facility] 07-01-2024 14:50-0400 Respiratory rate 16 /min DO Shaun Aviles Work Phone: [facility] 07-01-2024 14:50-0400 SaO2% (BldA) [Mass fraction] 99 % DO Shaun Aviles Work Phone: [facility] 07-01-2024 14:50-0400 Systolic blood pressure 109 mm[Hg] DO Shaun Aviles Work Phone: [facility] 07-01-2024 12:47-0400 Body height 160.02 cm DO Shaun Aviles Work Phone: [facility] 07-01-2024 12:47-0400 Body weight 61.23 kg DO Shaun Aviles Work Phone: [facility] 06-16-2024 13:33-0400 Body height 160.02 cm [facility] 06-16-2024 13:33-0400 Body mass index (BMI) [Ratio] 23.6 kg/m2 [facility] 06-16-2024 13:33-0400 Body weight 60.32 kg [facility] 06-16-2024 13:33-0400 Diastolic blood pressure 69 mm[Hg] [facility] 06-16-2024 13:33-0400 Heart rate 79 /min [facility] 06-16-2024 13:33-0400 Systolic blood pressure 105 mm[Hg] [facility] 04-15-2024 14:04-0400 Body height 160.02 cm DO Shaunjairon Aviles Work Phone: [facility] 04-15-2024 14:04-0400 Body mass index (BMI) [Ratio] 23.9 kg/m2 DO Shaunjairon Monzons Work Phone: [facility] 04-15-2024 14:04-0400 Body weight 61.23 kg DO Shaun Nicoláss Work Phone: [facility] 01-29-2024 12:58-0400 Body height 160.02 cm DO Shaunjairon Monzons Work Phone: [facility] 01-29-2024 12:58-0400 Body mass index (BMI) [Ratio] 26.2 kg/m2 DO Shaunjairon Monzons Work Phone: [facility] 01-29-2024 12:58-0400 Body weight 67.13 kg DO Shaunjairon Monzons Work Phone: [facility] 01-29-2024 12:58-0400 Diastolic blood pressure 70 mm[Hg] DO Shaunjairon Monzons Work Phone: [facility] 01-29-2024 12:58-0400 Heart rate 89 /min DO Shaun Monzons Work Phone: [facility] 01-29-2024 12:58-0400 Respiratory rate 16 /min DO Shaun Aviles Work Phone: [facility] 01-29-2024 12:58-0400 SaO2% (BldA) [Mass fraction] 99 % DO Shaun Aviles Work Phone: [facility] 01-29-2024 12:58-0400 Systolic blood pressure 100 mm[Hg] DO Shaunjairon Monzons Work Phone: [facility] 10-16-2023 13:20-0500 Body height 160.02 cm Lj Stanton Other [facility] 10-16-2023 13:20-0500 Body mass index (BMI) [Ratio] 25.68 kg/m2 Lj Stanton Other [facility] Other 10-16-2023 13:20-0500 Body weight 65.77 kg Lj Stanton Other [facility] 08-22-2023 10:06-0500 Diastolic blood pressure 62 mm[Hg] DO Shaunjairon Monzons Work Phone: [facility] 08-22-2023 10:06-0500 Heart rate 67 /min DO Shaun Nicoláss Work Phone: [facility] 08-22-2023 10:06-0500 Respiratory rate 16 /min DO Shaun Nicoláss Work Phone: [facility] 08-22-2023 10:06-0500 SaO2% (BldA) [Mass fraction] 99 % DO Shaun Nicoláss Work Phone: [facility] 08-22-2023 10:06-0500 Systolic blood pressure 102 mm[Hg] DO Shaun Nicoláss Work Phone: [facility] 08-22-2023 08:02-0500 Body height 162.56 cm DO Shaun Nicoláss Work Phone: [facility] 08-22-2023 08:02-0500 Body weight 64.41 kg DO Shaunjairon Monzons Work Phone: [facility] 07-26-2023 13:00-0400 Body height 160.02 cm Shaun Monzons Other [facility] Other 07-26-2023 13:00-0400 Body mass index (BMI) [Ratio] 25.68 kg/m2 Shaunjairon Monzons Other [facility] Other 07-26-2023 13:00-0400 Body weight 65.77 kg Shaunjairon Monzons Other [facility] Other 07-26-2023 13:00-0400 Diastolic blood pressure 64 mm[Hg] Shaun Monzonbere Other [facility] [employer] Other 07-26-2023 13:00-0400 Respiratory rate 18 /min Shaun Monzonbere Other [facility] [employer] [facility] Other 07-26-2023 13:00-0400 SaO2% (BldA) [Mass fraction] 97 % Shaun Monzonbere Other [facility] [employer] [facility] Other 07-26-2023 13:00-0400 Systolic blood pressure 100 mm[Hg] Shaun Traci Other [facility] [employer] [facility] Other 07-09-2023 13:20-0400 Body height 160.02 cm Lj Stanton Other [facility] [employer] [facility] Other 07-09-2023 13:20-0400 Body mass index (BMI) [Ratio] 25.68 kg/m2 Lj Stanton Other [facility] [employer] [facility] Other 07-09-2023 13:20-0400 Body weight 65.77 kg Lj Romy Other [facility] [employer] [facility] Other 07-09-2023 13:20-0400 Diastolic blood pressure 76 mm[Hg] Lj Scovanner Other [facility] [employer] [facility] Other 07-09-2023 13:20-0400 Systolic blood pressure 103 mm[Hg] Lj Scovanner Other [facility] [employer] [facility] Other 07-01-2023 20:50-0400 Diastolic blood pressure 62 mm[Hg] [facility] 07-01-2023 20:50-0400 Heart rate 86 /min [facility] 07-01-2023 20:50-0400 Mean blood pressure 73 mm[Hg] [facility] 07-01-2023 20:50-0400 Respiratory rate 17 /min [facility] 07-01-2023 20:50-0400 SaO2% (BldA) [Mass fraction] 95 % [facility] 07-01-2023 20:50-0400 Systolic blood pressure 95 mm[Hg] [facility] 07-01-2023 19:58-0400 Heart rate 87 /min [facility] 07-01-2023 19:58-0400 Respiratory rate 16 /min [facility] 07-01-2023 19:58-0400 SaO2% (BldA) [Mass fraction] 95 % [facility] 07-01-2023 19:07-0400 Heart rate 89 /min [facility] 07-01-2023 19:07-0400 Respiratory rate 18 /min [facility] 07-01-2023 19:07-0400 SaO2% (BldA) [Mass fraction] 98 % [facility] 07-01-2023 17:52-0400 Body temperature 98.24 [degF] [facility] 07-01-2023 17:52-0400 Diastolic blood pressure 86 mm[Hg] [facility] 07-01-2023 17:52-0400 Mean blood pressure 97 mm[Hg] [facility] 07-01-2023 17:52-0400 Systolic blood pressure 120 mm[Hg] [facility] 04-05-2023 11:00-0400 Body height 160.02 cm Rell Marinelli Other [facility] [employer] [facility] Other 06-29-2023 11:00-0400 Body mass index (BMI) [Ratio] 27.81 kg/m2 Rell Marinelli Other [facility] [employer] [facility] Other 04-05-2023 11:00-0400 Body weight 71.22 kg Rell Marinelli Other [facility] [employer] [facility] Other 03-06-2023 13:45-0400 Body height 160.02 cm Shaun Aviles Other [facility] [employer] [facility] Other 03-06-2023 13:45-0400 Body mass index (BMI) [Ratio] 27.88 kg/m2 Shaun Aviles Other [facility] [employer] [facility] Other 03-06-2023 13:45-0400 Body weight 71.4 kg Shaun Aviles Other [facility] [employer] [facility] Other 03-06-2023 13:45-0400 Diastolic blood pressure 60 mm[Hg] Shaun Aviles Other [facility] [employer] [facility] Other 03-06-2023 13:45-0400 Respiratory rate 16 /min Shaun Aviles Other [facility] [employer] [facility] Other 03-06-2023 13:45-0400 SaO2% (BldA) [Mass fraction] 98 % Shaun Aviles Other [facility] [employer] [facility] Other 03-06-2023 13:45-0400 Systolic blood pressure 114 mm[Hg] Shaun Aviles Other [facility] [employer] [facility] Other 08-21-2022 13:30-0500 Body height 160.02 cm Shaun Aviles Other [facility] [employer] [facility] Other 08-21-2022 13:30-0500 Body mass index (BMI) [Ratio] 25.15 kg/m2 Shaun Aviles Other [facility] [employer] [facility] Other 08-21-2022 13:30-0500 Body weight 64.41 kg Shaun Aviles Other [facility] [employer] [facility] Other 08-21-2022 13:30-0500 Diastolic blood pressure 60 mm[Hg] Shaun Aviles Other [facility] [employer] [facility] Other 08-21-2022 13:30-0500 Respiratory rate 16 /min Shaun Aviles Other [facility] [employer] [facility] Other 08-21-2022 13:30-0500 SaO2% (BldA) [Mass fraction] 99 % Shaun Aviles Other [facility] [employer] [facility] Other 08-21-2022 13:30-0500 Systolic blood pressure 112 mm[Hg] Shaun Aviles Other [facility] [employer] [facility] Other 05-03-2022 13:00-0400 Body temperature 98.2 [degF] DO Denys Itzkowitz Work Phone: [facility] 05-03-2022 13:00-0400 Diastolic blood pressure 71 mm[Hg] DO Denys Itzkowitz Work Phone: [facility] 05-03-2022 13:00-0400 Heart rate 96 /min DO Denys Itzkowitz Work Phone: [facility] 05-03-2022 13:00-0400 Respiratory rate 16 /min DO Denys Itzkowitz Work Phone: [facility] 05-03-2022 13:00-0400 SaO2% (BldA) [Mass fraction] 98 % DO Denys Itzkowitz Work Phone: [facility] 05-03-2022 13:00-0400 Systolic blood pressure 114 mm[Hg] DO Denys Itzdeirdrewitz Work Phone: [facility] 04-28-2022 16:06-0400 Body temperature 97.7 [degF] Shabbir Morales [facility] 04-28-2022 16:06-0400 Diastolic blood pressure 82 mm[Hg] Shabbir Morales [facility] 04-28-2022 16:06-0400 Heart rate 112 /min Shabbir Morales [facility] 04-28-2022 16:06-0400 Respiratory rate 18 /min Shabbir Morales [facility] 04-28-2022 16:06-0400 SaO2% (BldA) [Mass fraction] 98 % Shabbir Morales [facility] 04-28-2022 16:06-0400 Systolic blood pressure 132 mm[Hg] Shabbir Morales [facility] 03-28-2022 16:15-0400 Body height 160.02 cm Shaun Aviles Other [facility] [employer] [facility] Other 03-28-2022 16:15-0400 Body mass index (BMI) [Ratio] 22.99 kg/m2 Shaun Aviles Other [facility] [employer] [facility] Other 03-28-2022 16:15-0400 Body weight 58.88 kg Shaun Aviles Other [facility] [employer] [facility] Other 03-28-2022 16:15-0400 Diastolic blood pressure 70 mm[Hg] Shaun Aviles Other [facility] [employer] [facility] Other 03-28-2022 16:15-0400 Respiratory rate 16 /min Shaun Aviles Other [facility] [employer] [facility] Other 03-28-2022 16:15-0400 SaO2% (BldA) [Mass fraction] 98 % Shaun Aviles Other [facility] [employer] [facility] Other 03-28-2022 16:15-0400 Systolic blood pressure 122 mm[Hg] Shaun Aviles Other [facility] [employer] [facility] Other 01-19-2022 14:15-0400 Body height 160.02 cm Shaun Aviles Other [facility] [employer] [facility] Other 01-19-2022 14:15-0400 Body mass index (BMI) [Ratio] 22.85 kg/m2 Shaun Aviles Other [facility] [employer] [facility] Other 01-19-2022 14:15-0400 Body weight 58.51 kg Shaun Aviles Other [facility] [employer] [facility] Other 01-19-2022 14:15-0400 Diastolic blood pressure 80 mm[Hg] Shaun Aviles Other [facility] [employer] [facility] Other 01-19-2022 14:15-0400 Respiratory rate 16 /min Shaun Aviles Other [facility] Other 01-19-2022 14:15-0400 SaO2% (BldA) [Mass fraction] 95 % Shaun Aviles Other [facility] Other 01-19-2022 14:15-0400 Systolic blood pressure 124 mm[Hg] Shaun Aviles Other [facility] [employer] [facility] Other 12-15-2021 13:00-0500 Body height 160.02 cm Shaun Aviles Other [facility] [employer] [facility] Other 12-15-2021 13:00-0500 Body mass index (BMI) [Ratio] 22.49 kg/m2 Shaun Aviles Other [facility] [employer] [facility] Other 12-15-2021 13:00-0500 Body weight 57.61 kg Shaun Aviles Other [facility] [employer] [facility] Other 12-15-2021 13:00-0500 Diastolic blood pressure 70 mm[Hg] Shaun Aviles Other [facility] [employer] [facility] Other 12-15-2021 13:00-0500 Respiratory rate 16 /min Shaun Aviles Other [facility] [employer] [facility] Other 12-15-2021 13:00-0500 SaO2% (BldA) [Mass fraction] 99 % Shaun Aviles Other [facility] [employer] [facility] Other 12-15-2021 13:00-0500 Systolic blood pressure 110 mm[Hg] Shaun Aviles Other [facility] [employer] [facility] Other 11-07-2021 12:00-0500 Body height 160.02 cm Shaun Aviles Other [facility] [employer] [facility] Other 11-07-2021 12:00-0500 Body mass index (BMI) [Ratio] 22.85 kg/m2 Shaun Aviles Other [facility] Other 11-07-2021 12:00-0500 Body weight 58.51 kg Shaun Aviles Other [facility] [employer] [facility] Other 11-07-2021 12:00-0500 Diastolic blood pressure 64 mm[Hg] Shaun Aviles Other [facility] [employer] [facility] Other 11-07-2021 12:00-0500 Respiratory rate 18 /min Shaun Aviles Other [facility] Other 11-07-2021 12:00-0500 SaO2% (BldA) [Mass fraction] 99 % Shaun Monzonbere Other [facility] [employer] [facility] Other 11-07-2021 12:00-0500 Systolic blood pressure 112 mm[Hg] Shaun Aviles Other [facility] [employer] [facility] Other 09-26-2021 13:30-0500 Body height 160.02 cm Shaun Aviles Other [facility] [employer] [facility] Other 09-26-2021 13:30-0500 Body mass index (BMI) [Ratio] 22.32 kg/m2 Shaun Aviles Other [facility] [employer] [facility] Other 09-26-2021 13:30-0500 Body weight 57.15 kg Shaun Aviles Other [facility] [employer] [facility] Other 09-26-2021 13:30-0500 Diastolic blood pressure 66 mm[Hg] Shaun Traci Other [facility] [employer] [facility] Other 09-26-2021 13:30-0500 Respiratory rate 16 /min Shaun Traci Other [facility] [employer] [facility] Other 09-26-2021 13:30-0500 SaO2% (BldA) [Mass fraction] 99 % Shaunjairon Monzonbere Other [facility] Other 09-26-2021 13:30-0500 Systolic blood pressure 100 mm[Hg] Shaunjairon Monzonbere Other [facility] Other Encounters Encounter Date Encounter Type Care Provider Facility Start: 04-21-2025 End: 04-21-2025 Patient encounter procedure Shaun Aviles P DO -MRI [address] Closed Work Phone: Start: 04-21-2025 End: 04-21-2025 ambulatory Shaun Traci DO Work Phone: [facility] Work Phone: Start: 03-16-2025 End: 03-16-2025 ambulatory [facility] Work Phone: Start: 03-16-2025 End: 03-16-2025 Patient encounter procedure [facility] [place] Work Phone: Start: 01-05-2025 End: 01-05-2025 Bamboo flowsheet Ghanshyam Emilia DO Work Phone: [facility] Start: 01-05-2025 End: 01-09-2025 Bamboo flowsheet Ghanshyam Emilia DO Work Phone: [facility] Start: 01-05-2025 End: 01-09-2025 Clinisync Result Encounter Ghanshyam Emilia DO Work Phone: [facility] External Department Unsolicited Start: 01-05-2025 Non-patient / Non-visit [facility] Work Phone: Start: 01-05-2025 End: 01-05-2025 ambulatory GHANSHYAM EMILIA Not Available Start: 01-05-2025 End: 01-05-2025 Patient encounter procedure Ghanshyam Emilia DO Work Phone: [facility] Start: 01-05-2025 End: 01-05-2025 Periodic preventive med est patient 18-39 yrs Ghanshyam Nieto DO Work Phone: [facility] Comment on above: Well woman exam with routine gynecological exam Start: 12-23-2024 End: 12-23-2024 ambulatory [facility] Work Phone: Start: 12-23-2024 End: 12-23-2024 Patient encounter procedure [facility] Work Phone: Start: 11-11-2024 End: 11-11-2024 ambulatory [facility] Work Phone: Start: 11-11-2024 End: 11-11-2024 Patient encounter procedure [facility] Work Phone: Start: 08-26-2024 End: 08-26-2024 ambulatory Shaun Aviles DO Work Phone: [facility] Work Phone: Start: 08-26-2024 End: 08-26-2024 Patient encounter procedure Shaun Aviles DO Work Phone: [facility] Work Phone: Start: 08-05-2024 End: 08-05-2024 Patient encounter procedure DO Shaun Aviles Work Phone: [facility] [place] Work Phone: Start: 08-05-2024 End: 08-05-2024 ambulatory DO Shaun Aviles Work Phone: [facility] Work Phone: Start: 07-31-2024 End: 07-31-2024 ambulatory DO Shaun Aviles Work Phone: [facility] Work Phone: Start: 07-31-2024 End: 07-31-2024 Patient encounter procedure DO Shaun Aviles Work Phone: [facility] Gastroenterology Work Phone: Start: 07-10-2024 End: 07-10-2024 ambulatory CASSANDRA GONZALEZ Not Available Start: 07-10-2024 End: 07-10-2024 Office outpatient visit 15 minutes Cassandra M Enid PA Work Phone: [facility] Comment on above: Dental infection (Pr imary Dx) Start: 07-01-2024 Non-patient / Non-visit DO Sebastián Aviles Work Phone: [facility] Work Phone: Start: 07-01-2024 End: 07-01-2024 Admission to same day surgery center DO Shaun Aviles Work Phone: [facility] Work Phone: Start: 07-01-2024 End: 07-01-2024 ambulatory DO Shaun Aviles Work Phone: [facility] Work Phone: Start: 06-16-2024 End: 06-16-2024 ambulatory [facility] Work Phone: Start: 06-16-2024 End: 06-16-2024 Patient encounter procedure [facility] Gastroenterology Work Phone: Start: 05-19-2024 Non-patient / Non-visit [facility] Work Phone: Start: 05-18-2024 Non-patient / Non-visit [facility] Work Phone: Start: 04-15-2024 End: 04-15-2024 ambulatory DO Shaun Aviles Work Phone: [facility] Work Phone: Start: 04-15-2024 End: 04-15-2024 Patient encounter procedure DO Shaun Aviles Work Phone: [facility] Gastroenterology Work Phone: Start: 01-29-2024 End: 01-29-2024 ambulatory DO Shaun Aviles Work Phone: [facility] Work Phone: Start: 01-29-2024 End: 01-29-2024 Patient encounter procedure DO Shaun Aviles Work Phone: [facility] [place] Work Phone: Start: 01-22-2024 End: 01-22-2024 ambulatory DO Shaun Aviles Work Phone: [facility] Work Phone: Start: 01-22-2024 End: 01-22-2024 Patient encounter procedure DO Shaun Aviles Work Phone: [facility] Start: 12-27-2023 End: 12-27-2023 ambulatory DO Shaun Aviles Work Phone: [facility] Work Phone: Start: 12-27-2023 End: 12-27-2023 Patient encounter procedure DO Shaun Aviles Work Phone: [facility] [place] Work Phone: Start: 10-16-2023 End: 10-16-2023 ambulatory Lj Stanton Other [employer] Other Start: 10-16-2023 Office outpatient vi sit 15 minutes Lj Stanton [facility] Gastroenterology Start: 10-16-2023 End: 10-16-2023 Patient encounter procedure DO Shaun Aviles Work Phone: [facility] Physician [facility] Gastroenterology Work Phone: Start: 08-23-2023 End: 08-23-2023 ambulatory Willie Lambert Other [facility] [employer] [facility] Other Start: 08-23-2023 Telephone encounter Willie [facility] Start: 08-22-2023 End: 08-22-2023 Admission to same day surgery center DO Shaun Aviles Work Phone: [facility] Work Phone: Start: 08-22-2023 End: 08-22-2023 ambulatory DO Shaun Nicolásbere Work Phone: [facility] Work Phone: Start: 08-15-2023 End: 08-15-2023 ambulatory DO Shaun Aviles Work Phone: [facility] Work Phone: Start: 08-15-2023 End: 08-15-2023 Patient encounter procedure DO Shaunjairon Monzonbere Work Phone: [facility] [place] Work Phone: Start: 07-26-2023 End: 07-26-2023 ambulatory Shaun Aviles Other [facility] [employer] [facility] Other Start: 07-26-2023 Office outpatient vi sit 25 minutes Shaun Aviles [facility] Start: 07-20-2023 End: 07-20-2023 ambulatory Shaun Aviles Other [facility] [employer] Other Start: 07-20-2023 Telephone encounter Shaun Aviles [facility] Start: 07-17-2023 End: 07-17-2023 ambulatory DO Shaun Aviles Work Phone: [facility] Work Phone: Start: 07-17-2023 End: 07-17-2023 Patient encounter procedure DO Shaun Aviles Work Phone: [facility] Start: 07-09-2023 End: 07-09-2023 ambulatory Lj Stanton Other [facility] [employer] [facility] Other Start: 07-09-2023 Office outpatient ne w 30 minutes Lj Stanton [facility] Gastroenterology Start: 07-05-2023 End: 07-05-2023 ambulatory Shaun Aviles Other [facility] [employer] [facility] Other Start: 07-05-2023 Telephone encounter Shaun Aviles [facility] [place] Start: 07-01-2023 End: 07-01-2023 Emergency department patient visit Mirna Montgomery christie [facility] Start: 07-01-2023 End: 07-01-2023 Emergency department patient visit [facility] Start: 04-23-2023 (Procedure) Short Rell Marinelli [facility] Start: 04-23-2023 End: 04-23-2023 ambulatory Rell Marinelli Other [facility] [employer] [facility] Other Start: 04-05-2023 End: 04-05-2023 ambulatory Rell Marinelli Other [facility] [employer] [facility] Other Start: 04-05-2023 Office outpatient vi sit 25 minutes Rell Marinelli [facility] [place] Start: 04-05-2023 Telephone encounter Rell Marinelli [employer] Start: 03-06-2023 End: 03-06-2023 ambulatory Shaun Aviles Other [facility] [employer] [facility] Other Start: 03-06-2023 Office outpatient vi sit 25 minutes Shaun Aviles [facility] [place] Start: 01-01-2023 End: 01-01-2023 ambulatory DO Shaun Aviles Work Phone: [facility] Work Phone: Start: 01-01-2023 End: 01-01-2023 Patient encounter procedure DO Shaun Aviles Work Phone: [facility] [place] Work Phone: Start: 11-24-2022 End: 11-24-2022 ambulatory DO Shaun Aviles Work Phone: [facility] Work Phone: Start: 11-24-2022 End: 11-24-2022 Patient encounter procedure DO Shaun Aviles Work Phone: [facility] Work Phone: Start: 10-20-2022 End: 10-20-2022 ambulatory Shaun Aviles Other [employer] Other Start: 10-20-2022 Telephone encounter Shuan Aviles [facility] Start: 08-21-2022 End: 08-21-2022 ambulatory Shaun Aviles Other [facility] [employer] [facility] Other Start: 08-21-2022 Office outpatient vi sit 15 minutes Shaun Aviles [facility] Start: 08-17-2022 End: 08-17-2022 ambulatory Shaun Aviles Other [facility] [employer] [facility] Other Start: 08-17-2022 Telephone encounter Shaun Aviles [facility] Start: 07-18-2022 End: 07-19-[address] SHAUN AVILES Facility:[facility] Start: 07-06-2022 End: 07-06-[address] ILENE MERCADO Facility:[facility] Start: 07-02-2022 End: 07-02-[address] SHAUN AVILES Facility:[facility] Start: 06-30-2022 End: 06-30-[address] DOCTOR GLASER Facility:[facility] Start: 06-29-2022 Encounter for preprocedural laboratory examination DR GHANSHYAM NIETO [facility] Start: 06-27-2022 End: 06-28-[address] DOCTOR GLASER Facility:[facility] Start: 06-27-2022 End: 06-28-2022 Encounter for preprocedural laboratory examination DR DOCTOR GLASER Facility:[facility] Start: 06-25-2022 Encounter for other preprocedural examination DR GHANSHYAM NIETO [facility] Start: 06-21-2022 End: 06-22-[address] DOCTOR GLASER Facility:[facility] Start: 06-21-2022 End: 06-22-2022 Encounter for other preprocedural examination DR DOCTOR GLASER Facility:[facility] Start: 06-17-2022 End: 06-18-[address] DOCTOR GLASER Facility:[facility] Start: 05-03-2022 End: 05-03-2022 Admission to same day surgery center DO Denys Itsrinivasan Work Phone: [facility] Start: 05-01-2022 End: 05-01-2022 ambulatory Shaun Aviles Other [employer] Other Start: 05-01-2022 Telephone encounter Shaun Aviles [facility] Start: 04-28-2022 End: 04-28-2022 Emergency department patient visit Shabbir Morales [facility] Start: 04-18-2022 End: 04-18-2022 Patient encounter procedure DO Denys Itzkowitz Work Phone: [facility] Start: 03-30-2022 End: 03-30-2022 ambulatory Shaun Aviles Other [employer] Other Start: 03-30-2022 Telephone encounter Shaun Aviles [facility] Start: 03-28-2022 End: 03-28-2022 ambulatory Shaun Aviles Other [employer] Other Start: 03-28-2022 Office outpatient vi sit 25 minutes Shaun Aviles [facility] [place] Start: 02-16-2022 End: 02-16-2022 ambulatory Shaun Aviles Other [employer] Other Start: 02-16-2022 Telephone encounter Shaun Aviles [facility] Start: 01-19-2022 End: 01-19-2022 ambulatory Shaun Aviles Other [employer] Other Start: 01-19-2022 Office outpatient vi sit 25 minutes Shaun Aviles [facility] Start: 01-19-2022 Telephone encounter Shaun Aviles [facility] [place] Start: 01-13-[address] GHANSHYAM NIETO Facility :[facility] Start: 12-28-2021 End: 12-29-[address] GHANSHYAM NIEOT [employer] Other Start: 12-28-2021 Telephone encounter Shaun Aviles [facility] Start: 12-15-2021 End: 12-15-2021 ambulatory Shaun Aviles Other [employer] Other Start: 12-15-2021 Office outpatient vi sit 25 minutes Shaun Aviles [facility] [place] Start: 11-28-2021 End: 11-28-2021 ambulatory Shaun Aviles Other [employer] Other Start: 11-28-2021 Telephone encounter Shaun Aviles [facility] [place] Start: 11-24-2021 End: 11-24-2021 ambulatory Shaun Aviles Other [employer] Other Start: 11-24-2021 Telephone encounter Shaun Aviles [facility] Start: 11-23-2021 End: 11-23-[address] DOCTOR GLASER Facility:[facility] Start: 11-15-2021 End: 11-16-[address] SHAUN AVILES Facility:[facility] Start: 11-07-2021 End: 11-07-2021 ambulatory Shaun Aviles Other [employer] Other Start: 11-07-2021 Office outpatient vi sit 25 minutes Shaun Aviles [facility] Start: 09-28-2021 End: 09-29-[address] SHAUN AVILES Facility: Start: 09-26-2021 End: 09-26-2021 ambulatory Shaun Aviles Other [employer] Other Start: 09-26-2021 Office outpatient vi sit 25 minutes Shaun Aviles [facility] Start: 11-29-2015 End: 11-29-2015 Patient encounter procedure UNKNOWN PROVIDER Facility:[facility] Procedures Date Procedure Procedure Detail Performing Clinician Start: 04-21-2025 MRI of head Shaun Aviles DO Work Phone: Start: 01-05-2025 Urine test visual color cmprsn meths Ghanshyam Forteo DO Work Phone: Start: 01-05-2025 IGP,APTIMA HPV,AGE GDLN Ghanshyam Emilia DO Work Phone: Start: 07-01-2024 [...] procedure 12/15/2024 1:00 PM EDT Office Visit [facility] [address] [address] Ghanshyam Nieto, DO [address] [place] [address] [facility] Start: 07-01-2024 [facility] Start: 08-22-2023 [facility] Start: 08-15-2023 Ova and Parasite Concentrate Exam Ova and Parasite Concentrate Exam [facility] Bacteria identified in Stool by Culture [facility] Calprotectin [Mass/m ass] in Stool [facility] Comprehensive metabo lic 2000 panel - Serum or Plasma [facility] CT Head WO and W con trast IV [facility] Cytology Cervical or vaginal smear or scraping study Pap Smear Pathology and Cytology Routine Well woman exam with routine gynecological exam Ordered: 01/05/2025 [facility] Work Phone: Comment on above: Ordered: 01/05/2025 Elastase.pancreatic [Mass/mass] in Stool [facility] Endomysial antibody IgA level [facility] Gliadin peptide IgA Ab [Units/volume] in Serum [facility] Gliadin peptide IgG Ab [Units/volume] in Serum [facility] HIV 1+2 Ab+HIV1 p24 Ag [Presence] in Serum or Plasma by Immunoassay [facility] IgA [Mass/volume] in Serum or Plasma [facility] Ova and parasites identified in Unspecified specimen by Light microscopy [facility] Patient Education [facility] Work Phone: Tissue transglutamin ase IgA Ab [Units/volume] in Serum [facility] Tissue transglutamin ase IgG Ab [Units/volume] in Serum [facility] Immunizations Immunization Date Immunization Notes Care Provider Fa cility 01-09-2023 hepatitis A vaccine, adult dosage [facility] 01-09-2023 tetanus toxoid, reduced diphtheria toxoid, and acellular pertussis vaccine, adsorbed [facility] 03-16-2014 hepatitis A vaccine, pediatric/adolescen t dosage, 2 dose schedule [facility] 03-16-2014 human papilloma virus vaccine, quadrivalent [facility] 02-27-2013 [facility] 12-06-2012 human papilloma virus vaccine, quadrivalent [facility] 02-21-2010 tetanus toxoid, reduced diphtheria toxoid, and acellular pertussis vaccine, adsorbed [facility] 02-05-2003 diphtheria, tetanus toxoids and acellular pertussis vaccine [facility] 02-05-2003 measles, mumps and rubella virus vaccine [facility] 02-05-2003 poliovirus vaccine, inactivated [facility] 07-26-1999 diphtheria, tetanus toxoids and acellular pertussis vaccine, unspecified formulation [facility] 07-26-1999 haemophilus influenzae type b vaccine, conjugate unspecified formulation [facility] 10-18-1998 measles, mumps and rubella virus vaccine [facility] 10-18-1998 trivalent poliovirus vaccine, live, oral [facility] 06-16-1998 diphtheria, tetanus toxoids and acellular pertussis vaccine, unspecified formulation [facility] 06-16-1998 haemophilus influenzae type b vaccine, conjugate unspecified formulation [facility] 04-13-1998 diphtheria, tetanus toxoids and acellular pertussis vaccine, unspecified formulation [facility] 04-13-1998 haemophilus influenzae type b conjugate and Hepatitis B vaccine [facility] 04-13-1998 poliovirus vaccine, inactivated [facility] 1997 diphtheria, tetanus toxoids and acellular pertussis vaccine, unspecified formulation [facility] 1997 haemophilus influenzae type b conjugate and Hepatitis B vaccine [facility] 1997 poliovirus vaccine, inactivated [facility] 1997 hepatitis B vaccine, pediatric or pediatric/adolescen t dosage [facility] NEGATED: Highlighted row has not occurred!09-17-2019 influenza, seasonal, injectable Patient Objection Shaun Aviles Other [facility] Payers Date Payer Category Payer Medicaid [facility] MED[facility] [employer] [place] [id number] 2017-Present [address] [place] [address] [id number] 2017 Private Health Insurance [facility] MEDICA[facility] [id number] 2017 Medicaid [id number] 2014 Medicaid [id number] 1997 Unknown [id number] 2.16.840.1.001906.3.579.2. 732 1997 Unknown [id number] 2.16.840.1.575183.3.579.2. 593 1997 Unknown [id number] 2.16.840.1.594426.3.579.2. 593 1997 Unknown [id number] 2.16.840.1.282297.3.579.2. 593 1997 Unknown [id number] 2.16.840.1.369847.3.579.2. 593 1997 Unknown [id number] 2.16.840.1.920231.3.579.2. 593 1997 Unknown [id number] 2.16.840.1.808775.3.579.2. 593 1997 Unknown [id number] 2.16.840.1.617402.3.579.2. 593 1997 Unknown [id number] 2.16.840.1.664226.3.579.2. 593 1997 Unknown [id number] 2.16.840.1.883469.3.579.2. 593 1997 Unknown [id number] 2.16.840.1.987873.3.579.2. 593 1997 Unknown [id number] 2.16.840.1.778520.3.579.2. 593 1997 Unknown [id number] 2.16.840.1.215553.3.579.2. 593 1997 Unknown [id number] 2.16.840.1.076238.3.579.2. 593 1997 Unknown [id number] 2.16.840.1.776899.3.579.2. 727 1997 Unknown [id number] 2.16.840.1.742857.3.579.2. 1259 1997 Unknown [id number] 2.16.840.1.215170.3.579.2. 1259 1959 Self-pay [id number] 1959 Unknown [id number] 2.16.840.1.131107.19 Unknown [id number] 2.16.840.1.745550.3.579.2. 531 Unknown [id number] 2.16.840.1.142858.3.579.2. 531 Unknown [id number] 2.16.840.1.601708.3.579.2. 531 Social History Date Type Detail Facility Unknown if ever smoked [employer] Other Start: 08-06-2023 End: 07-10-2024 Sex Assigned At [employer] [facility] [employer] Other Tobacco Vaping [facility] Comment on above: vapes daily Start: 1995 Sex Assigned At Female F [facility] Tobacco smoking status No Smokin g Status Entered [facility] Start: 08-22-2023 End: 06-16-2024 Tobacco smoking status LAIS Smoker (finding) [facility] Start: 12-27-2023 Tobacco smoking stat [facility] Never smoked tobacco (finding) [facility] Start: 05-08-2023 End: 06-16-2024 Tobacco smoking status LAIS Smokes tobacco daily [facility] History of tobacco use [facility] Start: 07-10-2024 End: 01-05-2025 Alcoholic beverage intake Lifetime non-drinker (finding) [facility] Start: 08-06-2023 End: 07-10-2024 History of Social function [facility] Start: 1995 Sex assigned at Not on file [facility] Start: 08-26-2024 End: 03-16-2025 Sex Female (finding) [facility] Goals Date Patient Goal Desired Activity /State Functional Status Date Assessment Result Facility 07-01-2023 Functional Status N/A [facility] 04-28-2022 Functional Status N/A [facility] Clinical Notes 09-26-2021 to 03-16-2025 Note Date & Type Note Facility 03-16-2025 Evaluation note Authored March 16, 2025 12:41 pm The above note written by LIBRADO Mcqueen acting as human recorder, note dictated by Dr. Shaun [facility]iles. [facility] Work Phone: 1(793) 195-273503-31-2025 History of Present illness Narrative* Ayah Varma NP - 01/05/2025 1:20 PM EDT Reason for Appointment: Patient ID: Brian Sullivan [...] DIAGNOSTIC / BIOPSY / ASPIRATION / LYSIS 2018 OTHER SURGICAL HISTORY 2018 calcification and blood [...] nursing note reviewed. Exam conducted with a stitcher standard machine present. Vitals: Estimated body mass index is 23.99 kg/m as calculated from the following: Height as of 8/2/23: 5' 3 . Weight as of this [...] of: Ghanshyam Nieto DO documented in this encounterLiberty [id number] Evaluation note* Author Dina [facility] Authored December 23, 2024 12: 48pm The above note written by Dolly Chris LPN, acting as human recorder, note dictated by Dr. Shaun Aviles. Author Kalie Vásquez [facility] Authored March 16, 2025 12:41 pm The above note written by LIBRADO Mcqueen acting as human recorder, note dictated by Dr. Shaun Aviles. [facility] Work Phone: 1(590) 713-359211-19-2024 Evaluation note* Author [facility] Authored August 26, 2024 1:47pm The above note written by Dolly Chris LPN, acting as human recorder, note dictated by Dr. Shaun Aviles. [facility] Work Phone: 1(177) 714-153210-03-2024 History of Present illness Narrative* JUANJO Shrestha [...] negative, + Chlamydia SALPINGECTOMY Bilateral 2021 TONSILLECTOMY 2015 Visit Vitals BP 110/80 Pulse 75 Temp [...] one that will accept her insurance. Cassandra ZAMORA PA-C documented in this encounterLiberty [id number] Procedure [facility]07-09-2024 Evaluation note* Author Lj Stanton [facility] Authored April 15, 2024 2:20p m Patient is positive for abdo nelson pain, dyspepsia, specifically abdominal pain in the epigastric region as well as appetite suppression [facility] Work Phone: [phone]) 800-801501-09-2024 Evaluation note* Encounter Date Diagnosis Assessment Notes [...] She can use Pepcid OTC as needed. [employer] Other 11-15-2023 [facility] Evaluation note* Encounter Date Diagnosis Assessment [...] Dr. Storey. We will continue to monitor. [employer] Other 10-02-2023 Evaluation note* Encounter Date Diagnosis [...] STOOL STUDIES AND COLONOSCOPY AT THIS TIME. [employer] Other 09-24-2023 Hospital Discharge instructions Patient Education 07/01/2023 20:46:37 Pelvic Pain, Female, Ultp-xz-Diqn Pelvic Pain, Female Pelvic pain is pain [...] known. Follow these instructions at home: Take bleh-odt-sttaaak and prescription medicines only as told by [...] right away. Call your local emergency services ([address] Do not wait to see [...] provider. Document Revised: 01/31/2022 Document Reviewed: 01/31/2022 [employer] Patient Education 2022 [employer]. Follow Up Care 07/01/2023 17:51:29 With:Ghanshyam NIETO Address: [address] [place] [address]- Business (1) When:07/04/2023 20:46:14 Comments:Call the office first thing Sunday morning With:SHWETA GONZALEZ Address:Unknown When:Within 3 Day(s) [facility]09-24-2023 Evaluation + Plan noteExtracted from: Title:ED [...] Diagnostic Tests Pending * Urine Culture 07/01/23 [facility]05-30-2023 Evaluation note* Encounter Date Diagnosis Assessment [...] L70.9) Patient is interested in seeing a career education teacher for acne, I am agreeable. Referral initiated. [employer] Other 11-14-2022 Evaluation note* Encounter Date Diagnosis [...] prescribing a scheduled benzodiazapine. She verbalized understanding. [employer] Other 09-23-2022 NoteOPERATIVE NOTE OPERATION DATE: 06/30/2022 PROCEDURE: Khalida endometrial ablation hysteroscopy with bilateral laparoscopic salpingectomy. PREOPERATIVE DIAGNOSIS: Menorrhagia, desire permanent sterilization, multiparity. POSTOPERATIVE DIAGNOSIS: Menorrhagia, desire permanent sterilization, multiparity. ANESTHESIA: General. SURGEON: Ghanshyam Nieto D.O. SECOND BALLER: DANICA Feng URINE OUTPUT: Yellow and clear. [...] lap and needle counts were correct x2.[id number] Hospital Discharge instructions Patient Education 04/28/2022 16:54:37 [...] safe place to keep a gun, local law[facility] may store a gun for you. Make [...] mental health organizations such as the National [place] on Mental Illness (AVRIL): www.avril.org Get help [...] 02/05/2018 Document Revised: 01/15/2020 Document Reviewed: 02/05/2018 [employer] Patient Education 2020 [employer]. 04/28/2022 16:54:37 Managing Anxiety, Adult Managing Anxiety, [...] care provider. Avoid caffeine, alcohol, and certain qixw-qan-pwxsuqs cold medicines. These may make you feel worse. Ask your pharmacist which medicines to avoid. General instructions Take jhao-qhh-faibpzl and prescription medicines only as told by [...] Depression Association of [place] (ADAA): www.adaa.org National [place] on Mental Illness (AVRIL): www.avril.org Contact a [...] 09/18/2017 Document Revised: 02/24/2020 Document Reviewed: 02/24/2020 [employer] Patient Education 2020 [employer]. Follow Up Care 04/28/2022 16:03:48 With:SHWETA GONZALEZ Address:Unknown When:05/01/2022 16:39:14 Comments:Follow-up with your primary care provider in 3 to 5 days. If symptoms worsen, do not improve, or new symptoms arise please report back to emergency department for further evaluation. Continue to keepyour appointment with your psychiatrist on Sunday as well. [facility]07-22-2022 Evaluation + Plan noteExtracted from: Title:ED Note Author:Gamaliel Amos PA-C te:04/28/22 Anxiety (F41.9: Anxiety diso rder, unspecified) Orders: alprazolam, 0.5 mg = 1 tab(s), Oral, TID, PRN for anxiety, X 3 day(s), # 12 tab(s), Refills(s) 0, Pharmacy: [id number], 160, cm, 04/28/22 16:08:00 EDT, Height/Length Dosing, 63, kg, 04/28/22 16:08:00 EDT, Weight Dosing [facility]06-21-2022 Evaluation note* Encounter Date Diagnosis Assessment [...] Somatic dysfunction of rib (ICD-10 - M99.08) [employer] Other 04-14-2022 Evaluation note* Encounter Date Diagnosis [...] with him and the specialist as scheduled. [employer] Other 04-14-2022 Evaluation note* Encounter Date Diagnosis Assessment Notes Treatment Notes Treatment Clinical Notes Jan, Anxiety with depression (ICD-10 - F41.8) Jan, Borderline personality disorder (ICD-10 - F60.3) Jan, PTSD (post-traumatic stress disorder) (ICD-10 - F43.10) [employer] Other 03-10-2022 Evaluation note* Encounter Date Diagnosis [...] stools are normal, as they were prior. [employer] Other 02-09-2022 History general Narrative - Reported* Type Description Date Medical History anxiety and depression Medical History bipolar disorder Medical History 11/16/21 abnormal mammogram Surgical History T&A 2015? Surgical History bladder stretched 2014 Surgical History Natural childbirth 2017 Hospitalization History see above Hospitalization History psychiatric 3-day stay 2 016 Hospitalization History Childbirth 2017 [employer] Other 02-09-2022 History general Narrative - Reported* Type Description Date Medical History anxiety and depression Medical History bipolar disorder Medical History 11/16/21 abnormal mammogram Surgical History T&A 2015? Surgical History bladder stretched 2014 Surgical History Natural childbirth 2018 Surgical History Tubal ligation/ ablation 06/2022 Hospitalization History see above Hospitalization History psychiatric 3-day stay 2 016 Hospitalization History Childbirth 2017 [employer] Other 01-31-2022 Evaluation note* Encounter Date Diagnosis [...] referred to Psychiatrist Dr. James Cosme in [place] and is currently scheduled 12/27/2021 which I [...] N64.52) Oct, Breast pain (ICD-10 - N64.4) [employer] Other 12-20-2021 Evaluation note* Encounter Date Diagnosis [...] disorder (ICD-10 - Z13.29) Blood work ordered. [employer] Other Evaluation noteNo InformationNort C[facility] [employer] Other Evaluation noteNo assessment information available [facility] Work Phone: Evaluation noteNort Crumbs [employer] Other Evaluation note* Diagnosis Onset Date Resolution Status Difficulty sleeping acute Fibroadenoma of left breast acute Irritable bowel syndrome with diarrhea acute Schizophrenia acute [facility] Work Phone: Evaluation note* Author Lj Stanton [facility] Authored April 15, 2024 2:20p m Patient is positive for abdo nelson pain, dyspepsia, specifically abdominal pain in the epigastric region as well as appetite suppression [facility] Work Phone: Evaluation note* Diagnosis Dental infection- Primary documented in this encounter [facility]* Diagnosis Onset Date Resolution Status Dyspepsia acute Dysphagia acute Hemorrhoids acute Irritable bowel syndrome with diarrhea acute Nausea acute Dysphagia acute [facility] Work Phone: Evaluation note* Diagnosis Onset Date Resolution Status Dyspepsia acute Dysphagia acute Hemorrhoids acute Irritable bowel syndrome with diarrhea acute Nausea acute Dyspepsia acute Dysphagia acute [facility] Work Phone: Evaluation note* Author [facility] Authored August 26, 2024 1:47pm The above note written by Dolly Chris LPN, acting as human recorder, note dictated by Dr. Shaun Aviles. [facility] Work Phone: evaluation note* Author [facility] Authored December 23, 2024 12: 48pm The above note written by Dolly Chris LPN, acting as human recorder, note dictated by Dr. Shaun Aviles. [facility] Work Phone: Evaluation note* Diagnosis Well woman exam with routine gynecological exam Routine gynecological examination documented in this encounter [facility] HealthcareHistory and physical note Author Willie Lambert [facility] August 22, 2023 9:21am Note Date/Time August 22, 2023 9:21am [facility] [address] [place] [address] Gastroenterology H&P Signed Patient: Brian Sullivan MR#: [id number] : 1995 Acct:[id number] Age/Sex: 27 / F Adm Date: 3 Loc: Room: Type: [facility] Attending Dr: Willie Lambert MD Copies to: [...] <Electronically signed by Willie Lambert MD> 08/22/23920 [facility] Work Phone: History and physical note Author Willie Lambert [facility] July 01, 2024 2:06pm Note Date/Time July 01, 2024 2:06pm [facility] [address] [place] [address] Gastroenterology H&P Signed Patient: Brian Sullivan MR#: [id number] : 1995 Acct:[id number] Age/Sex: 28 / F Adm Date: 4 Loc: Room: Type: [facility] Attending Dr: Willie Lambert MD Copies to: [...] Lambert MD Documented By: Willie Lambert MD 07/01/24 140 Signed By: <Electronically signed by Willie Lambert MD> 07/01/24 140 [facility] Work Phone: History general Narrative - Reported* Type Description Date Medical History anxiety and depression Medical History bipolar disorder Surgical History T&A 2016? Surgical History bladder stretched 2014 Surgical History Natural childbirth 2018 Hospitalization History see above Hospitalization History psychiatric 3-day stay 2 016 Hospitalization History Childbirth 2018 [facility] [employer] Other History general [facility]ative - [facility] Other Hospital course Narrative No data available for this section [facility] Additional Instructions DISCHARGE INSTRUCTIONS [...] problems. -Follow up with PCP. -Office number [phone].[facility] Work Phone: Progress note No data available for this section [facility]Reason for referral (narrative)No reason for referral information availableHocking Valley [facility] Work Phone: Reason for visit Narrativediscuss meds for dental procedureNort Crumbs [employer] Shop Other Summary Purpose Family History No Family History Records Found Relationship Condition Age at Onset Recorded Date/T [...] obstructive pulmonary disease Unk nown Advance Directives No Advanced Directives Records Found Advance Directive Response Recorded Date/ Time Advance Directives No April 06 2:41pm Advance Directive Response Recorded Date/ Time Advance Directives No April 06 1:41pm Reason for Referral Reason * 03/14 consult and treat; [facility] Diagnosis 1 Acne, unspecified ac ne type (L70.9) [facility] Referring Provider First Name Shaun Referring Provider Last Name Traci Referring Provider Specialty [facility] Referred Organization Dermatology [facility] Referred Address [address] [place] [address] Referred Provider Specialty Dermatology Referral Priority Routine [facility] 11:32[facility]52 AM >Received today and waiting for office notes to be locked before sending referral [facility] 03/07/2023 03:46:26 PM >Office notes locked. [facility] request us to fill out their form and fax to them. They will review the referral and call patient to schedule them. Referral was fax Clinical Notes Office [phone] Reason *Waiting for appt consult and treat Diagnosis 1 Coccyx pain (M53.3) [facility] Referring Provider First Name Shaun Referring Provider Last Name Traci Referring Provider Specialty Family Prac austin Referred Organization [facility] Pain Managemen t [place] Referred Provider Rell Marinelli Referred Address [address] [place],[address] Referred Provider Specialty Pain Medicin e Referral Priority Routine General Notes Abbey Parikh 023 08:18:19 AM >Received today and sent P2P Reason 02/02/22 @ 11:30am consult and treat марина ; anxiety with depression BPD PTSD Diagnosis 1 Anxiety with depress ion (F41.8) Diagnosis 2 Borderline personali ty disorder (F60.3) Diagnosis 3 PTSD (post-traumatic stress disorder) (F43.10) Referral Organization [facility] Family Medicin e Nash Referring Provider First Name Shaun Referring Provider Last Name Nicolás Referring Provider Specialty Family Prac austin Referred Organization [facility] Referred Address [address] [place], [place],[address] Referred Provider Specialty Psychiatry Referral Priority Routine Referral Appointment Date 2022-02-02 General Notes Jacqueline Brooks 2021 02:52:37 PM >referral printed and faxed to [phone] along with OV notes from 09/26/2021, 12/15/2021, 01/19/2022, and TE from 01/19/2022 Aiden Farr with a note to be put on cancellation list. Vale Parikhn 01/25/2022 06:53:47 AM >OK, thank you Jacqueline for the update. Will follow up on this one in a few days Vale Parikhn 01/27/2022 07:32:28 AM >Fax letter for appt update Vale Parikhn 01/27/2022 12:23:21 PM >Received letter back with appt Reason *FU 12/26 consutl and treat Diagnosis 1 Abnormal mammogram ( R92.8) Diagnosis 2 Mass of left breast, unspecified quadrant (N63.20) Diagnosis 3 Nipple discharge (N6 4.52) Referral Organization [facility] Family Medicin e [facility] Referring Provider First Name Shaun Referring Provider Last Name Traci Referring Provider Specialty Family Prac austin Referred Organization [facility] Referred Provider Denys Pearson Referred Address ,[place],[address] Referred Provider Specialty Surgery Referral Priority Routine [...] 2 Hearing voices (R44. 0) Referral Organization [facility] Family Medicin e [facility] Referring Provider First Name Shaun Referring Provider Last Name Traci Referring Provider Specialty Family Prac austin Referred Organization Unknown Facility Referred Provider Specialty Psychiatry Referral Priority Routine General Notes Jacqueline Brooks 2020 01:12:01 PM > per bpk- NOT [facility] counseling and recovery- Needs seen by a psychiatrist group. Willing to go to [facility] or towards [facility].Abbey Parikh 09/26/2021 01:59:20 PM >Reviewed a Dr. James Cosme MD. That is in [place] but goes to [place]. Will fax referral there and patient can choose which office to go to when they call her. Will fax once office notes is locked Clinical Notes Office [phone] Chief Complaint and Reason for Visit [...] 2 month follow up /IBS w/ diarrhea Septe mber 2023 1:28pm Early Satiety / Dysphagia June [...] 1:28pm Irritable bowel syndrome with diarrhea S epteer 2023 1:28pm Nausea June 16, 2024 1:28pm [...] Vaginal yeast infection December 23, 2024 12:23pm Chief Complaint Admit Date 3 mo f/u December 23, 2024 12: 23pm 3 month March 16, 2025 12:25 pm Reason for Visit Admit Date Dyspepsia December 23, 2024 12: 23pm Frequent headaches December 23, 2024 12: 23pm Vaginal yeast infection December 23, 2024 12:23pm Enlarged lymph node March 16, 2025 12:25 pm Frequent headaches March 16, 2025 12:25 pm Nicotine dependence March 16, 2025 12:25 pm Chief Complaint Admit Date 3 month March 16, 2025 12:25 pm R51.9 R59.9 R11.0 April 21, 2025 10:3 7am Reason for Visit Admit Date Enlarged lymph node March 16, 2025 12:25 pm Frequent headaches March 16, 2025 12:25 pm Nicotine dependence March 16, 2025 12:25 pm Additional Source Comments INFORMATION SOURCE (unrecogn ized section and content) DATE CREATED AUTHOR 10/30/2020 [employer] DATE CREATED AUTHOR AUTHOR'S ORGANIZ ATION 08/17/2022 [facility] DATE CREATED AUTHOR AUTHOR'S ORGANIZ ATION 07/11/2023 [facility] DATE CREATED AUTHOR AUTHOR'S ORGANIZ ATION 01/06/2025 [facility] DATE CREATED AUTHOR AUTHOR'S ORGANIZ ATION 04/25/2025 [facility] REASON FOR VISIT (unrecogniz ed section and content) Reason Comments [facility] Visit Care Team (unrecognized sect ion and content) Team Status: Active Member Role Status Keren Aviles DO Primary Care Provider Active Team Status: Inactive Member Role Status Keren Aviles DO Primary Care Provider Active Sta rt: June 16, 2024 End: June 16, 2024 Lj Stanton APRN Attending Provider Active Start: June 16, 2024 End: June 16, 2024 Team Status: Inactive Member Role Status Keren Aviles DO Primary Care Provider Active Sta rt: July 01, 2024 End: July 01, 2024 Willie Lambert MD Attending Provider Active S tart: July 01, 2024 End: July 01, 2024 Team Status: Active Member Role Status Keren Aviles DO Primary Care Provider Active Sta rt: July 01, 2024 Willie Lambert MD Attending Provider, Other Provider Active Start: July 01, 2024 Team Status: Inactive Member Role Status Keren Aviles DO Primary Care Provider Active Sta rt: July 31, 2024 End: July 31, 2024 Willie Lambert MD Attending Provider Active S tart: July 31, 2024 End: July 31, 2024 Team Status: Inactive Member Role Status Keren Aviles DO Primary Care Provide r, Attending Provider Active Start: August 05, 2024 End: August 05, 2024 Team Status: Inactive Member Role Status Keren Aviles DO Primary Care Provide r, Attending Provider Active Start: August 26, 2024 End: August 26, 2024 Team Status: Active Member Role Status Keren Aviles DO Primary Care Provider Active Sta rt: May 18, 2024 Kelly Quiroga PA-C Attending Provider Active Start : May 18, 2024 Team Status: Active Member Role Status Keren Aviles DO Primary Care Provider Active Sta rt: May 19, 2024 Ines Ojeda MD Attending Provider Active St art: May 19, 2024 Team Status: Inactive Member Role Status Keren Aviles DO Primary Care Provider Active Denys Pearson DO Attending Provider Active Ghanshyam Nieto Referring Provider Active Team Status: Inactive Member Role Status Keren Pearson DO Attending Provider Active Shaun Aviles DO Primary Care Provider Active Team Status: Inactive Member Role Status Dates Shaun Aviles DO Primary Care Provider Active Denys Pearson DO Attending Provider Active Team Status: Inactive Member Role Status Dates Shaun Aviles DO Primary Care Provider, Attending Provi zuly [...] April 15, 2024 End: April 15, 2024 Rn Midwife Relationship Specialty Start Date End Date Shaun Aviles MD [facility] [place] [address] PCP - General 05/09/23 Team Status: Inactive Member Role Status Dates hSaun Aviles DO Primary Care Provider Active Sta rt: November 11, 2024 End: November 11, 2024 Lj Stanton APRN Attending Provider Active Start: November 11, 2024 End: November 11, 2024 Team Status: Inactive Member Role Status Dates Shaun Aviles DO Primary Care Provide r, Attending Provider Active Start: December 23, 2024 End: December 23, 2024 Rn Midwife Relationship Specialty Start Date End Date Shaun Aviles MD [address] [place] [facility] [address] PCP - General 05/09/23 Rn Midwife Relationship Specialty Start Date End Date Shaun Aviles MD [address] [place] [facility] [address] PCP - General 05/09/23 Rn Midwife Relationship Specialty Start Date End Date Shaun Aviles MD [address] [place] [facility] [address] PCP - General 05/09/23 Team Status: Active Member Role Status Dates Shaun Aviles DO Primary Care Provider Active Sta rt: January 05, 2025 Ghanshyam Nieto DO Attending Provider Active Start : January 05, 2025 Team Status: Inactive Member Role Status Dates Shaun Aviles DO Primary Care Provide r, Attending Provider Active Start: March 16, 2025 End: March 16, 2025 Team Status: Inactive Member Role Status Dates Shaun Aviles DO Primary Care Provider Active Sta rt: March 16, 2025 End: March 16, 2025 Shaun Aviles DO Attending Provider Active Start: March 16, 2025 End: March 16, 2025 Team Status: Inactive Member Role Status Dates Shaun Aviles DO Primary Care Provider Active Sta rt: April 21, 2025 End: April 21, 2025 Shaun Aviles DO Attending Provider Active Start: April 21, 2025 End: April 21, 2025 Goals (unrecognized section and content) Goals may [...] BE BASED ON THE PRIMARY CLINICAL RECORDS. [facility] provides no warranty or guarantee of the accuracy or completeness of information in this document.
[2025-05-03] MEDS: 0.9 % SODIUM CHLORIDE 1,000 ML 1000 ML IV (13:33)
[2025-05-03] MEDS: KETOROLAC TROMETHAMINE 30 MG/ML VIAL IVP (13:34)
[2025-05-03] MEDS: METHYLPREDNISOLONE SOD SUCC PF 125 MG/2 ML VIAL IVP (13:34)
[2025-05-03 13:41] LABS: Hematocrit 39.5 % (36.0-48.0); Hemoglobin 13.5 g/dL (12.0-16.0); Mean Corpuscular HGB Conc 34.2 g/dL (29.9-35.2); Mean Corpuscular Hemoglobin 27.8 pg (26.7-34.0); Mean Corpuscular Volume 81.3 fL (81.0-99.0); Platelet Count 201 10^3/uL (150-450); Red Blood Count 4.86 10^6/uL (4.20-5.40); White Blood Count 9.2 10^3/uL (4.0-11.0)
--- NOTE | 2025-05-03 13:46 | ED.GENADUL1 ---
HPI HPI - General Adult General Chief complaint: Headache Stated complaint: HEADACHE Time Seen by Provider: 05/03/25 13:11 Source: patient Mode of arrival: walk-in Limitations: no limitations History of Present Illness HPI narrative: 29-year-old female presents for headache. It began today about 9:00 AM. No trauma fever or stiff neck. She has a history of these headaches and this is similar to ones that she has had in the past. She had an MRI recently and states they want to do another one with contrast. No localized weakness or fever or injury. Related Data Home Medications ?Medication ?Instructions ?Recorded ?Confirmed lumateperone 42 mg capsule 42 mg PO DAILY 07/19/23 05/03/25 (Caplyta) mirtazapine 45 mg tablet 45 mg PO QPM 07/19/23 05/03/25 Previous Rx's ?Medication ?Instructions ?Recorded nylaoxqjgy-wlivxeqmefxve-rxnhqabz 1 cap PO Q6H PRN pain 3 days #10 05/03/25 50 mg-300 mg-40 mg capsule caps (Fioricet) Allergies Allergy/AdvReac Type Severity Reaction Status Date / Time ciprofloxacin (From Cipro) Allergy Severe Unknown Verified 05/03/25 13:02 ibuprofen (From Motrin) AdvReac Unknown Unknown Verified 05/03/25 13:02 latex AdvReac Unknown Unknown Verified 05/03/25 13:02 Sulfa (Sulfonamide AdvReac Unknown Unknown Verified 05/03/25 13:02 Antibiotics) Opioid HPI Opioid Management Most Recent Opioid Data: Last Pain Scale 10 Today, 13:02 Review of Systems ROS Narrative A ten point review of systems is negative except as noted above. PFSH PFSH Social History Little interest or pleasure in doing things: not at all Feeling down, depressed, or hopeless: not at all Exam Narrative Exam Narrative: Nurses note and vital signs reviewed and patient is not hypoxic. General: The patient appears well and in no apparent distress. Patient is resting comfortably on cart. Skin: Warm, dry, no pallor noted. There is no rash noted. Head: Normocephalic, atraumatic; neck supple no nuchal rigidity. Eye: Normal conjunctiva, no drainage, EOMI. PERRL Ears, Nose, Mouth, and Throat: oral mucosa is moist. Nares patent. Cardiovascular: Regular Rate and Rhythm Respiratory: Patient is in no distress, no accessory muscle use, lungs are clear to auscultation, no wheezing, rales or rhonchi Back: non-tender GI: Soft and nontender Musculoskeletal: The patient has no evidence of calf tenderness, no pitting edema, symmetrical pulses noted bilaterally Neurological: A&O, normal speech; upper and lower extremity strength 5 out of 5 and symmetric Psychiatric: Cooperative Constitutional Vital Signs, click to edit/add: Last Vital Signs Temp 98.4 F 05/03/25 13:02 Pulse 107 H 05/03/25 13:02 Resp 16 05/03/25 13:02 BP 125/76 05/03/25 13:02 Pulse Ox 100 05/03/25 13:02 O2 Del Method Room Air 05/03/25 13:02 Course Vital Signs Vital signs: Vital Signs Temperature 98.4 F 05/03/25 13:02 Pulse Rate 107 H 05/03/25 13:02 Respiratory Rate 16 05/03/25 13:02 Blood Pressure 125/76 05/03/25 13:02 Pulse Oximetry 100 05/03/25 13:02 Oxygen Delivery Method Room Air 05/03/25 13:02 Temperature 98.4 F 05/03/25 13:02 Pulse Rate 107 H 05/03/25 13:02 Respiratory Rate 16 05/03/25 13:02 Blood Pressure 125/76 05/03/25 13:02 Pulse Oximetry 100 05/03/25 13:02 Oxygen Delivery Method Room Air 05/03/25 13:02 Medical Decision Making MDM Narrative Medical decision making narrative: The patient feels much better now, her headache has resolved as well as the body pains. She is discharged home with a prescription for Zofran. She was given IV Toradol and Solu-Medrol here. Treatment diagnosis and follow-up were discussed with the patient. I have no clinical suspicion of acute intracranial pathology or meningitis. Differential Diagnosis Differential Diagnosis: Migraine, headache, intracranial hemorrhage, meningitis Lab Data Lab results reviewed: Yes I reviewed the patient's lab results Labs: Lab Results 05/03/25 Range/Units 13:33 WBC 9.2 (4.0-11.0) 10^3/uL RBC 4.86 (4.20-5.40) 10^6/uL Hgb 13.5 (12.0-16.0) g/dL Hct 39.5 (36.0-48.0) % MCV 81.3 (81.0-99.0) fL MCH 27.8 (26.7-34.0) pg MCHC 34.2 (29.9-35.2) g/dL RDW 13.0 (11.0-15.0) % Plt Count 201 (150-450) 10^3/uL MPV 9.2 L (9.5-13.5) fL Seg Neuts % (Manual) 85.0 H (43.0-75.0) Band Neutrophils % 2.0 (0-5) % Lymphocytes % (Manual) 5.0 L (20.5-60.0) % Monocytes % (Manual) 8.0 (1.7-12.0) % Eosinophils % (Manual) 0.0 L (0.9-7.0) % Basophils % (Manual) 0.0 L (0.2-2.0) % Neutrophils # (Manual) 7.82 H (1.4-6.5) 10^3/uL Band Neutrophils # 0.2 (0.0-0.3) 10^3/uL Lymphocytes # (Manual) 0.46 L (1.20-3.80) 10^3/uL Monocytes # (Manual) 0.73 (0.30-0.80) 10^3/uL Eosinophils # (Manual) 0.00 (0.00-0.70) 10^3/uL Basophils # (Manual) 0.00 (0.00-0.10) 10^3/uL Sodium 139 (136-145) mmol/L Potassium 3.4 L (3.5-5.1) mmol/L Chloride 104 (98-107) mmol/L Carbon Dioxide 22.5 (21.0-32.0) mmol/L Anion Gap 15.9 BUN 8.0 (7.0-18.0) mg/dL Creatinine 0.70 (0.55-1.02) mg/dL Est GFR ( Amer) >60 (>=60 mL/min/1.73m^2) Est GFR (Non-Af Amer) >60 (>=60 mL/min/1.73m^2) BUN/Creatinine Ratio 11.4 Glucose 98 (74-106) mg/dL Calcium 9.3 (8.5-10.1) mg/dL Serum HCG, Qual Negative (NEGATIVE) Discharge Plan Discharge Chief Complaint: Headache Clinical Impression: Headache Patient Disposition: Home, Self-Care Time of Disposition Decision: 14:41 Condition: Good Mode of Transportation: Private Vehicle Prescriptions / Home Meds: New sksdyamurf-yrintkbkvdove-cylh [Fioricet] 50-300-40 mg capsule 1 cap PO Q6H PRN (Reason: pain) 3 Days Qty: 10 0RF No Action Caplyta 42 mg capsule 42 mg PO DAILY mirtazapine 45 mg tablet 45 mg PO QPM Print Language: Niuean Instructions: Acute Headache (ED) Referrals: Shaun Downey DO [Primary Care Provider] - 1 week
[2025-05-03 13:48] LABS: Anion Gap 15.9; Blood Urea Nitrogen 8.0 mg/dL (7.0-18.0); Calcium 9.3 mg/dL (8.5-10.1); Carbon Dioxide 22.5 mmol/L (21.0-32.0); Chloride 104 mmol/L (98-107); Estimated GFR (African America >60 (>=60 mL/min/1.73m^2); Estimated GFR (Non-African Ame >60 (>=60 mL/min/1.73m^2); Glucose 98 mg/dL (74-106); Potassium 3.4 mmol/L (3.5-5.1); Sodium 139 mmol/L (136-145)
[2025-05-03 14:04] LABS: Band Neutrophils Absolute 0.2 10^3/uL (0.0-0.3); Basophils Abs Manual 0.00 10^3/uL (0.00-0.10); Basophils Percent Manual 0.0 % (0.2-2.0); Eosinophils Absolute Manual 0.00 10^3/uL (0.00-0.70); Eosinophils Percent Manual 0.0 % (0.9-7.0); Lymphocytes Absolute Manual 0.46 10^3/uL (1.20-3.80); Lymphocytes Percent Manual 5.0 % (20.5-60.0); Monocytes Absolute Manual 0.73 10^3/uL (0.30-0.80); Monocytes Percent Manual 8.0 % (1.7-12.0); Segmented Neut Absolute Manual 7.82 10^3/uL (1.4-6.5); Segmented Neutrophils % Manual 85.0 (43.0-75.0)
== END 2025-05-03 14:51 | disposition home or self-care (01) ==
PROVIDERS: Emergency Provider Emergency Medicine; PCP Family Medicine
DX: R51.9 Headache, unspecified (principal)
CPT/HCPCS: 36415; 80048; 84703; 85007; 85027; 96374; 96375; 99284; J1200; J1885; J2405; J2919

== ENCOUNTER 2025-10-06 08:52 | Outpatient (OUT) | payer OTHER, SELFPAY ==
--- OUTSIDE RECORDS SUMMARY | 2025-06-09 08:00 | XMS_ITS ---
Author Organization [facility] Address [address] [place] [address] Care Team Providers Care Linen Room Custodian Name Role Phone Madai Storey Primary Care Provider [phone] Rika Valdez Unavailable [phone] REASON FOR VISIT BH f/u 2-4 weeks Encounters Encounter Location Date Provider Diagnosis [facility] [address] [place] [address] 06/09/2025 Rika Valdez Plan Of Treatment No Information Progress Notes * SULLIVANBRIAN MCCALLUM NDOB:[birth year] (30 yo F)Acc No.[id number]:06/09/2025 BH F/U - Patient Patient: BIRAN ZIMMER :?Rika ValdezDOB:1995???Age:29 Y???Sex: FemaleDate:06/09/2025Phone:[phone]:[address] [place], [place] [id number]:Madai Storey Subjective: * Chief Complaints: * B H f/u 2-4 weeks Care Plan Details* * Electronic signature of SIRI Hernández on 10/06/2025 at 08:55 AM ESTSign off status: Pending * Provider: Dick Valdez Date: 0 06/09/2025 Generated for Printing/Faxing/eTransmitting on:?10/06/2025 08:55 AM EST
--- OUTSIDE RECORDS SUMMARY | 2025-09-21 06:45 | XMS_ITS ---
Author Organization [facility] Address [address] [place] [address] Care Team Providers Care Chief Business Officer Name Role Phone Madai Storey Primary Care Provider Mary Camara Unavailable [phone] REASON FOR VISIT 3 month f/u bh Encounters Encounter Location Date Provider Diagnosis [facility] [address] [place] [address] 09/21/2025 Mray Camara Plan Of Treatment No Information Progress Notes * BRIAN SULLIVAN NDOB:[birth year] (30 yo F)Acc No.[id number]:09/21/2025 Behavioral Health Patient: TENISHA ZIMMERJAVIER Nick :?Mary CamaraDOB:1995???Age:30 Y???Sex: FemaleDate:09/21/2025Phone:[phone]:[address] [place] [address]Pcp:Madai Storey Subjective: * Chief Complaints: * 3 month f/u bh * Electronic signature of CHARAN Wolfe on 10/06/2025 at 08:54 AM EST Sign off status: Pending * Provider: Dinh Camara Date: 11/22/2024 Generated for Printing/Faxing/eTransmitting on:?10/06/2025 08:54 AM EST
--- OUTSIDE RECORDS SUMMARY | 2025-09-22 08:36 | XMS_ITS | Continuity of Care Document ---
Author Organization [facility] Address [address] [place] [address] Phone Care Team Providers Care Circuit Walker Name Role Phone Shayan Shaun JEFFERSON Primary Care Provider Shaun Downey DO Attending Provider Lj Stanton APRN Attending Provider [phone] Pastor Rivera DO Attending Provider Care Teams Patient Care Team Team Status: Active Member Role/Relationship Status Dates Shaun Downey DO Primary Care Provider Active Visit Care Team Team Status: Inactive Member Role/Relationship Status Dates Shaun Downey DO Primary Care Provider Active Sta rt: July 07, 2025 End: July 07lj Downey DOAttending ProviderActiveStart: July 07, 2025 End: July 07, 2025 Visit Care Team Team Status: Inactive Member Role/Relationship Status Keren Downey DO Primary Care Provider Active Sta rt: July 14, 2025 End: July 14, 2025Lima Lucio ProviderActiveStart: July 14, 2025 End: July 14, 2025 Visit Care Team Team Status: Inactive Member Role/Relationship Status Keren Downey DO Primary Care Provider Active Sta rt: August 05, 2025 End: August 05lyndsey Rivera DOAttnidia ProviderActiveStart: August 05, 2025 End: August 05, 2025 Patient Care Team Team Status: Inactive Member Role/Relationship Status Dates Shaun Downey DO Primary Care Provider Active Sta rt: September 22, 2025 End: September 22lj Downey DOAttending ProviderActiveStart: September 22, 2025 End: September 22, 2025 Chief Complaint and Reason for Visit Chief Complaint Admit Date 3 week f/u July 07, 2025 12:49pm 8 w follow up Dyspepsia July 14 2:19pm 3 month f/u September 22, 2025 12:46pm Reason for Visit Admit Date Abnormal bruising July 07, 2025 12:49pm Gastroparesis July 07, 2025 12:49pm Migraine July 07, 2025 12:49pm Schizophrenia July 07, 2025 12:49pm Abdominal pain July 14, 2025 2: 19pm Diarrhea July 14, 2025 2: 19pm Dyspepsia July 14, 2025 2: 19pm Gastroparesis July 14, 2025 2: 19pm Anxiety with depression August 05 8:55am Chronic migraine without aura or status migrainosus August 05, 2025 8:55am Schizophrenia August 05, 2025 8 :55am Borderline personality disorder September 22, 2025 12:46pm Chronic migraine without aura or status migrainosus September 22, 2025 12:46pm Neck pain September 22, 2025 12:46pm Allergies, Adverse Reactions, Alerts Allergen Type Severity Reaction Last Updated Verified Status Comments ciprofloxacin Allergy Unknown phsychosis September 22, 2025 1:02pm Yes Active Onset Date: 07/23/2023 ibuprofen Allergy Unknown Diarrhea, tongue sores September 22, 2025 1:02pm Yes Active latexAllergyUnknownRashDecember 2024 1:02pmYesActiveSulfa (Sulfonamide Antibiotics)AllergyUnknownHivesDecember 2024 1:02pmYesActive Social History Smoking Status Status Start Date End Date Date of Observa tion Smokes tobacco daily (finding) June 16, 2024 1:47pm Observation Status Observation Response Date of Response Legal Sex Female (finding) Sex Assigned At BirthFemaleDecember 1994 Family History Relationship Condition Age at Onset Recorded Date/T radha grandparent Heart disease Unknown motherMalignant neoplasm of ovaryUnknowngrandparentChronic obstructive pulmonary diseaseUnknown Problems Active Problems Problem Diagnosis/Recorded Date Onset Date Stat us Anxiety with depression December 06, 2023 4:43pm Unk nown Active Nicotine dependence March 16, 2025 11:41am Unknown Active Borderline personality disorder December 06, 2023 4: 43pm Unknown Active Insomnia December 06, 2023 4:43pm Unknown A ctive PTSD (post-traumatic stress disorder) November, 024 4:43pm Unknown Active Gastroparesis May 27, 2025 2:45pm Unknown Ac tive Chronic pain December 06, 2023 4:43pm Unknown A ctive Difficulty sleeping January 29, 2024 12:30pm Unknown Active Enlarged lymph node March 16, 2025 11:54am Unknown Active Fibroadenoma of left breast January 29, 2024 11:50am U nknown Active Acne December 06, 2023 4:43pm Unknown A ctive Anxiety November 11, 2024 2:07pm Unknown Ac tive Frequent headaches August 26, 2024 2:01pm Unknown Active Dysphagia June 16, 2024 12:48pm Unknown Active Dysphagia July 31, 2024 11:58am Unknown A ctive Diarrhea July 14, 2025 3:22pm Unknown Act renetta Dyspepsia April 15, 2024 1:13pm Unknown Active Migraine June 16, 2025 12:32pm Unknown Active Hyperlipidemia January 29, 2024 12:35pm Unknown A ctive Schizophrenia December 06, 2023 4:43pm Unknown Active Chronic migraine without aur a or status migrainosus August 05, 2025 8:57am Unknown Active Irritable bowel syndrome with diarrhea January 28 11:51am Unknown Active Neck pain December 06, 2023 4:43pm Unknown A ctive Abnormal bruising June 16, 2025 12:46pm Unknown Active Abnormal brain MRI April 24, 2025 10:26am Unknown Active GERD (gastroesophageal reflux disease) November 11, 025 2:07pm Unknown Active Abdominal pain April 15, 2024 1:12pm Unknown Acti ve Hemorrhoids April 15, 2024 1:01pm Unknown Active Nausea June 16, 2024 12:42pm Unknown Active Vitamin D deficiency December 06, 2023 4:43pm Unknow n Active Irritable bowel syndrome (IBS) January 29, 2024 11:50a m Unknown Active Cervical radicular pain December 06, 2023 4:43pm Unk nown Active Medications Medication Status Dose Units Route Directions Qty Days Refills S tart Date Stop Date End Date Reason(s) Instructions Adherence Ondansetron 4 mg tablet,disintegrating Active 4 M G PO Every 6 hours as needed for nausea and vomiting 21 ebruary 2023 12:00amComplies with drug therapyPotassium Chloride 20 mEq tablet extended mnfvmitGgoobp09KULSWMxmps87006Yscs 2024 11:00pmComplies with drug therapyDoxycycline Hyclate 100 mg zcxohkIlefdluxpnwy554RCVLEukjt51 May 21, 2025 11:00pmSeptember 2024 12:00pmTick bitetake two tablets onceAlprazolam (Xanax) 1 mg HuuudvHnqjfcbbyzcu6WRUPBtzjl daily as needed for AnxietyAugust 21, 2023 12:00amOctober 2023 12:01pmMirtazapine 45 mg fmnrxnBazmzminbmgw68EAYEUesor at bedtimeAugust 21, 2023 12:00amApril 2023 11:23amLumateperone (Caplyta) 42 mg xbyqqneVkezci56TZZRYwdex at bedtime August 21, 2023 12:00amComplies with drug therapyAlprazolam (Xanax) 1 mg cqqcrtGrdrkd7WNIE.prn as needed for AnxietyJuly 31, 2024 12:01pmComplies with drug therapyOmeprazole 40 mg capsule,delayed release(DR/EC)Xxgfqtahyztf03IM YOQkoyl378Uhtlngnkf 23rd, 2024 11:00pmOctober 2023 12:09pmPantoprazole 40 mg tablet,delayed release (DR/EC)Vjsbojkqiwnp67GWCTMbxce360Fgrx 2023 11:00pmSept2023 1:19pmDicyclomine 20 mg zzbdokYtdddmqagvus7BNLAP Three times dailyApril 2023 11:00pmSeptember 2023 12:35pmFreeTextSi tablet Orally Three times a day; Note: Source Status: Start; Refills: 11; Provider: Scovanner Lj MMirtazapine (Remeron) 15 mg gvykcjJwfkycggyrqr72KJFH DailyApril 2023 11:00pmNovember 2023 1:44pmMirtazapine (Remeron) 30 mg fyhdlbVyxtnokuehlf38CCFIMvytiMamds 2023 11:00pmNovember 2023 1:44pmTopiramate (Topamax) 50 mg ngtxldUizzcjplinro73HCWNIvwdk dailyApr2023 11:00pmJuly 2023 1:06pmIsotretinoin (Accutane) 20 mg capsule DiscontinuedPODailyApril 2023 11:00pmSeptember 2023 12:35pmBiotin 10,000 mcg rnmaxkzUngqkyptusei22169GABYMFokcwXjzjq 2023 11:00pmFebruary 2024 1:57pmMirtazapine 45 mg nuxwfyLzlxvxrlupno19ITCPVblblhip 2023 12:00amDecember 2024 1:04pmLamotrigine 25 mg jpnfqrTvcwdvwovukx42IDNH August 26, 2024 12:00amJune 2024 11:37amSumatriptan Succinate 50 mg bcaifcEttrrgaemodn4NV.XPUYVZY40CwnmmixeAugust 26, 2024 12:00amMarch 2024 11:46amtake 1 tab at onset of headache; if no relief may repeat 1 tab after at least 2 hrs; max = 4 tabs/24 hr POEletriptan (Relpax) 40 mg bipxgnPdvofsfhumuc19 MGPOOnce as needed for migraine cgcnqdar662Hnltkboeq 8th, 2025 11:00pmSeptember 2024 12:49pmEletriptan (Relpax) 40 mg wquboxKymmsvimtqlw63ZKZVZwvk as needed for migraine coceiqrf125Xwieqkhrg 9th, 2025 12:49pmSeptember 2024 12:54pmUbrogepant (Ubrelvy) 100 mg adhzzoMydcloqujqfe410AGDIUasu as needed June 15, 2025 11:00pmOctober 2024 1:25pmEletriptan (Relpax) 40 mg cjwiprNebqxartctsf53TWUUJemp as needed for migraine nmqpymff340Gombeqxpd 9th, 2025 12:54pmOctober 2024 8:06amOmeprazole 40 mg capsule,delayed release(DR/EC)Vzunphyxtmqc96YUDCFjvss472726Njnjeyq 24th, 2024 12:09pmOct2024 1:25pmTake 1 capsule orally 30 minutes before morning meal.Sumatriptan Succinate 100 mg ihokfoTpjhywujyijl9BB.JAGQYUW97PamzvDecember 22, 2024 11:00pmJune 2024 11:59amtake 1 tab at onset of headache; if no relief, may repeat 1 tab after at least 2 hrs; max = 2 tabs/24 hrs POFluconazole 150 mg tablet Jgqdtuelfklp844ETIKY7K as needed for trowl80Fmxxk 2024 11:00pmSept2024 12:01pmHydroxyzine Hcl 50 mg ewujpaZsxqlr45IVVVAwlzd at bedtimeMarch 15, 2025 11:00pmComplies with drug therapyEletriptan (Relpax) 40 mg tablet Csukjngeqoro7DE.KYAOBSC00UhyrMarch 15, 2025 11:00pmSeptember 2024 12:00pmtake 1 tab at onset of headache; if no relief, may repeat 1 tab after at least 2 hrs; max = 2 tabs/24 hrs POAmoxicillin-Pot Clavulanate 875-125 mg tabletDiscontinued1 TABPOTwice mfwjh96427Eide2024 11:00pmAugust 2024 1:01pmmagnesium glycinateDiscontinuedPOJuly 13, 2025 11:00pmOct2024 8:06amevery couple of daysPropranolol 60 mg capsule,extended release 24 kkFnohaqrbuxlu68JVNS Jzjyb794Ybcsptx 28th, 2025 11:00pmDece2024 1:05pmUbrogepant (Ubrelvy) 100 mg dxixtcNxhwxz185GYVORsmap as needed for migraine zcsivxap687Ageqwpucr 29th, 2025 11:00pmComplies with drug therapyMirtazapine 30 mg fdjvnyMrkmlf80XLHY Daily at bedtimeDe2024 12:00amComplies with drug therapyAtogepant (Qulipta) 60 mg tbwzlzJtyoqr00VLFKRtadj300Crfdpwag 16th, 2025 12:00amChronic migraine without aura or status migrainosus Chronic migraine without aura, not intractable, without status migrainosus migraine preventionComplies with drug therapy Immunizations Immunization Event Date Not Given Reason Dose Number Chief Innovation Officer Lot Number Reason(s) Given Vaccine Information Statement (VIS) Detail Administration Location Haemophilus B Conjugate/HepB- Comvax November 251997 Haemophilus B Conjugate/HepB- ComvaxJuly 1997diphtheria, TT and 5 pertussis antigensMay 2002DTap, unspecifiedFebruary 1997DTap, unspecifiedJuly 1997DTap, unspecifiedSeptember 1997DTap, unspecifiedOctober 1998 Hepatitis A Vaccine, adult dosageApril 2022Hepatitis A Vaccine, adol/ped, 2 doseJune 2013Hepatitis B Vaccine, adol/ped dosageDecember 1996Hib, unspecified formulationSeptember 1997Hib, unspecified formulationOctober 1998Human Papillomavirus Vaccine, quadrivalentMarch 2012Human Papillomavirus Vaccine, quadrivalentMay 2012Human Papillomavirus Vaccine, quadrivalentJune 2013Inactivated Poliovirus VaccineFebruary 1997 Inactivated Poliovirus VaccineJuly 1997Inactivated Poliovirus VaccineMay 2002Measles, Mumps, and Rubella Virus VaccineJanuary 1998Measles, Mumps, and Rubella Virus VaccineMay 2002trivalent poliovirus vaccine, live, oralJanuary 1998Tetanus, Diphtheria, Pertussis (Tdap)February 21, 2010 Tetanus, Diphtheria, Pertussis (Tdap)January 09, 2023Trivalent Influenza Vaccine September 17, 2019Patient Refused Vital Signs Vital Reading Result Reference Range Collection Date/Time Height 63 [in_i] July 07, 2025 12:91mvPnfndy11.42 kgSeptember 2024 12:31pmHeart Rate 79 /svd39-247Udxtvpehi 2024 12:31pmRespiratory rate18 /smt86-06Deskqwdvx 2024 12:31pmOxygen saturation by Pulse slymnjtr89 %95-100September 2024 12:31pmBP Buhuzlpc36 mm[Hg]100-140September 2024 12:31pmBP Diastolic 60 mm[Hg]60-100September 2024 12:31pmBMI (Body Mass Index)23.2 kg/m2 July 07, 2025 12:93vuXxpqpi49 [in_i]July 14, 2025 1:46ggQqjryd57.42 kgOctriver valley behavioral [facility] hospital 2024 1:22pmHeart Rate83 /etl80-732Yyiyyek 7th, 2025 1:22pmBP Uverzbkj376 mm[Hg]100-140July 14, 2025 1:22pmBP Xecrmvxnh67 mm[Hg]60-100 July 14, 2025 1:22pmBMI (Body Mass Index)23.2 kg/y0Ajunlds2024 1:22pm Kbhdno56.91 [facility] 20[facility] 8:03amHeart Rate79 /pbw69-280Dvinaji 29th, 2025 8:03amOxygen saturation by Pulse lpcvuxup72 %95-100Oct2024 8:03amBP Jvespiza706 mm[Hg]100-140August 05, 2025 8:03amBP Hksqjbvuq55 mm[Hg]60-100 August 05, 2025 8:69ffWhkmzu81 [in_i]September 22, 2025 12:01xyFhlxsj82.68 kgDevalleywise behavioral health center [facility] 2024 12:55pmHeart Rate74 /xwt75-572Qmaovgra 16th, 2025 12:55pm Respiratory rate16 /ubw03-33Lyjccbkb 16th, 2025 12:55pmOxygen saturation by Pulse sgnzuomq82 %95-100[facility]2024 12:55pmBP Ervojrws031 mm[Hg]100-140 September 22, 2025 12:55pmBP Ztwtfdjmm75 mm[Hg]60-100Deceer 2024 12:55pmBMI (Body Mass Index)24.0 kg/w1Bqsexpmu 2024 12:55pm Advance Directives Advance Directive Response Recorded Date/ Time Advance Directives No April 06 1:41pm Insurance Providers Guarantor Valeri Lora Address [address] [id number] Info.Home Phone: Payer Group Member ID Coverage Type Subscriber Relationship to Subscriber Effective Date Expiration Date Medicaid Frosty Frog Id: [id number] N Bowers Id: [id number] [address] [facility] [address] Home Phone: Email: .LogglySelf Encounters Encounter Location(s) Arrival/Admit Date Discharge/Departure Date Discharge/Departure Disposition Provider(s) Departed Physician/ Provider Office Visit -[facility] July 07, 2025 12:49pm July 07, 2025 1:54pm Discharged to home care or self care (routine discharge) Emir Chin DO Departed Physician/ Provider Office Visit -[facility] Gastro July 14, 2025 2:19pm July 14, 2025 2:46pm Discharged to home care or self care (routine discharge) Kj Amado APRN Departed Physician/ Provider Office Visit -[facility] Neurology August 05, 2025 8:55am August 05, 2025 10:00am Discharged to home care or self care (routine discharge) Kj Gonzales DO Departed Physician/ Provider Office Visit -[facility] September 22, 2025 12:46pm September 22, 2025 1:32pm Discharged to home care or self care (routine discharge) Emir Chin DO Recent Diagnosis Onset Date Admit Date Abnormal bruising Unknown June 12:49pm Gastroparesis Unknown July 07, 2025 12:49pm Migraine Unknown July 07, 2025 12:49pm Schizophrenia Unknown July 07, 2025 12:49pm Abdominal pain Unknown July 14 2:19pm Diarrhea Unknown July 14 2:19pm Dyspepsia Unknown July 14 2:19pm Gastroparesis Unknown July 14 2:19pm Anxiety with depression Unknown August 05, 2025 8:55am Chronic migraine without aur a or status migrainosus Unknown August 05, 2025 8:55am Schizophrenia Unknown August 05 8:55am Borderline personality disorder Unknown September 22, 2025 12:46pm Chronic migraine without aur a or status migrainosus Unknown September 22, 2025 12:46pm Neck pain Unknown September 22, 025 12:46pm Assessments Author [facility]queline Brooks [facility] 2024 1:11pmSooner if needed, the ER if concerns,The above note written by Jacqueline Brooks LPN acting as human recorder, note dictated by Dr. Shaun Downey Plan of Treatment Author Lj Stanton [facility] 2024 3:27pmA 29-year-old female patient with diagnosis of GERD, dyspepsia, abdominal pain and gastroparesis per gastric emptying study Continue lifestyle manage with regard to avoidance of trigger foods, patient following a low FODMAP diet Follow-up with mental health providers as patient notes initiation of Caplyta increased her dyspeptic complaints Patient is on a waiting list for the gastroparesis clinic however it is very long and she is potentially going to see if other health systems will offer same services and is in network Patient has discontinued PPI therapy for now and prefers a more natural approach. Patient has previously been on omeprazole 40 once daily Follow-up with this office as needed pending results from gastroparesis clinic Author Pastor Rivera [facility] 2024 9:03amIt is my impression that the patient has chronic migraine without aura. She states she gets about 16 headache days per month. Her MRI is unremarkable for acute pathology but does mention the possibility of intracranial hypotension. However, her clinical history strongly argues against this given that her headaches often do get worse when she lies down. No other focal findings on examination. She relates many of her headaches to stress and she does have a history of schizophrenia anxiety and depression. For that, she takes Caplyta and mirtazapine. Plan: Start propranolol long-acting 60 mg 1 tablet p.o. daily. It is my hope this helps from a migraine perspective and may also help her from an anxiety perspective Side effects discussed in detail. The patient confirms she has no history of heart rhythm abnormality or blood pressure abnormality. She is utilizing abortive therapy with Ubrelvy. Okay with continuation of this medication on an as needed basis to abort acute migraines. Migraine diary and diet I believe the patient's stress anxiety depression and schizophrenia are likely triggers for many of her headaches. Plan: Propranolol as above Close follow-up with psychiatry Author Opal Heaton [facility]Authored[facility] 2024 1:05pmPatient reports having 5 migraines over the last 2 weeks. Ubrelvy has been helpful at decreasing her pain related to the migraine. Has relpax also which also helps at times, does cause some side effects. Encouraged her to follow up with Dr. Rivera as scheduled. PT/INR and CBC reviewed with patient with normal results. Patient reports a plethora of symptoms including bloating, abdominal pain, nausea, diarrhea. Reports that a lot of foods cause GI upset, especially greasy causes instant diarrhea . She wonders why she has diarrhea vs constipation related to gastroparesis. This could be secondary to gastrocolic reflex and we discussed this today in relation to her symptoms. Strongly encouraged her to follow up with Lj Stanton on 07/14 and further discuss with him. It is possible that Capylyta is causing her symtoms. Very possible that her Caplyta is causing gastrointestinal dysmotility. Patient has been stable on this medication for 4 years and doing really well mentally, however this gastroporesis is causing her significant distress. Her mental health provider and counselor [facility] Patient is needing a new psychiatrist who can help look into the Caplyta for her and or help her tranistion to a new medication. She has been very stable for the last 4 years mentally on this medication therefore will need very close monitoring by specialist to help her with this issue. New referral will be placed/ Future Tests Future scheduled test information is unavailable Pending Tests Pending diagnostic test information is unavailable Future Visits Future appointment information is unavailable Future Procedures Future procedure information is unavailable Future Medications Future medication information is unavailable Patient Instructions Patient instructions are unavailable
--- OUTSIDE RECORDS SUMMARY | 2025-09-23 14:10 | XMS_ITS | Encounter Summary ---
Author Organization [facility] Address [address] [place] [address] Care Team Providers Care Central Office Operator Name Role Phone Shayan Shaun Emir JEFFERSON Primary Care Provider [phone] Reason for Visit * ReasonCommentsVaginal BleedingPt present today for irregular bleeding. Encounter Details DateTypeDepartmentCare Team (Latest Contact Info)Rzcvaqlzqiz89/17/2025 2:10 PM ESTOffice Visit [facility] [address] [phone] Ghanshyam Nieto DO [address] [place], [place] [id number] Abnormal uterine bleeding (AUB); History of endometrial ablation; PCOS (polycystic ovarian syndrome) Social History Tobacco UseTypesPacks/DayYears UsedDateSmoking Tobacco: Every DayCigarettes Alcohol UseStandard Drinks/WeekCommentsNever0 (1 standard drink = 0.6 oz pure alcohol)CommentsNoSex and Gender InformationValueDate RecordedSex Assigned at BirthNot on fileLegal EpkAymjrs90/15/2023 7:00 PM EDTGender Identity Not on fileSexual OrientationNot on fileOccupationIndustryJob Start DateJob End DateUnemployedNot on fileNot on fileNot on filedocumented as of this encounter Last Filed Vital Signs Vital SignReadingTime TakenCommentsBlood Dddgrbyr778/6209/23/2025 2:40 PM EST Pulse--Temperature--Respiratory Rate--Oxygen Saturation--Inhaled Oxygen Concentration--Doondn58.6 kg (138 lb)09/23/2025 2:40 PM VJZOfermd277 cm (5' 3 ) 09/23/2025 2:40 PM ESTBody Mass Index24.45111/24/2024 2:40 PM ESTdocumented in this encounter Progress Notes * Cassandra BrunnerTORI - 09/23/2025 2:10 PM EST Reason for Appointment: Patient ID: Valeri Lora is a 30 y.o. female who presents for Vaginal Bleeding (Pt present todayfor irregular bleeding.) Patient presents today for Acute Visit. MEDICATIONS Current Outpatient Medications Medication Instructions ALPRAZolam (XANAX) 1 mg, Oral, Nightly PRN Lumateperone Tosylate (CAPLYTA PO) Caplyta Lumateperone Tosylate (Caplyta) 10.5 MG capsule Caplyta mirtazapine (REMERON) 45 mg, Oral, Nightly pantoprazole (ProtoNix) 40 MG EC tablet Every 24 hours ALLERGIES Allergies Allergen Reactions Ciprofloxacin Other Reaction(s): phsychosis Other Reaction(s): Other (See Comments), phsychosis PHSYCHOSIS Onset Date: 07/23/2023 Ibuprofen Hives, Other, Unknown and Diarrhea Other Reaction(s): Diarrhea, tongue sores, hives, tongue sores TONGUE SORE Sulfacetamide Unknown Other Reaction(s): hives Latex Rash Sulfa Antibiotics Hives, Unknown and Rash Other Reaction(s): Hives PROBLEMS Active Ambulatory Problems Diagnosis Date Noted Encounter for follow-up 06/04/2023 Resolved Ambulatory Problems Diagnosis Date Noted No Resolved Ambulatory Problems Past Medical History: Diagnosis Date Anxiety and depression Bladder infection BMI 24.0-24.9, adult Breast lump [...] Medical History: Diagnosis Date Anxiety and depression Bladder infection BMI 24.0-24.9, adult Breast lump [...] US GUIDED BREAST LOCALIZATION AND [facility]SY [facility] CYSTOSCOPY 2013 w/ dilation ENDOMETRIAL [...] Constitutional: Appearance: Normal appearance. She is well-developed. Cardiovascular: Rate and Rhythm: Normal rate and [...] nursing note reviewed. Exam conducted with a burlap spreader present. Vitals: Estimated body mass index is 24.45 kg/m?? as calculated from the following: Height as of this encounter: 5' 3 . Weight as of this encounter: 138 lb. BP: 102/62 No LMP recorded. Patient has had an ablation. Assessment/Plan ICD-10-CM 1. Abnormal uterine bleeding (AUB) N93.9 2. History of endometrial ablation Z98.890 Assessment/Plan Pt presents with pain and AUB after ablation. Pt given labs and ultrasound orders to have obtained.All options discussed with pt in detail, hysterectomy vs depo or control to regulate periods.Pt declines and would just like to make sure everything is ok. Pt to return for annual exam in January unless needed sooner. Documented by Cassandra Brunner LPN on behalf of: Ghanshyam Nieto DO documented in this encounter Plan of Treatment DateTypeDepartmentCare Team (Latest Contact Info)Hzrwupoatnw43/13/2026 2:00 PM EDTProcedure Visit [facility] [address] [phone] Kelly Quiroga PA [address] [place] [address] NameTypePriorityAssociated DiagnosesOrder SchedulehCG, quantitative, LabRoutine Abnormal uterine bleeding (AUB) PCOS (polycystic ovarian syndrome) Ordered: 09/23/2025TSHLabRoutine Abnormal uterine bleeding (AUB) PCOS (polycystic ovarian syndrome) Ordered: 09/23/2025T4, freeLabRoutine Abnormal uterine bleeding (AUB) PCOS (polycystic ovarian syndrome) Ordered: 5CBC and differentialLabRoutine Abnormal uterine bleeding (AUB) PCOS (polycystic ovarian syndrome) Ordered: 09/23/2025Follicle stimulating hormoneLabRoutine Abnormal uterine bleeding (AUB) PCOS (polycystic ovarian syndrome) Ordered: 09/23/2025Luteinizing hormoneLabRoutine Abnormal uterine bleeding (AUB) PCOS (polycystic ovarian syndrome) Ordered: 09/23/2025Hemoglobin L9bPtlWzwrogj Abnormal uterine bleeding (AUB) Ordered: 09/23/2025DHEA-sulfateLabRoutine Abnormal uterine bleeding (AUB) PCOS (polycystic ovarian syndrome) Ordered: 09/23/2025DHEALabRoutine Abnormal uterine bleeding (AUB) PCOS (polycystic ovarian syndrome) Expected: 09/23/2025 (Approximate), Expires: 09/23/2026US Pelvis w/ TVImaging Routine Abnormal uterine bleeding (AUB) History of endometrial ablation PCOS (polycystic ovarian syndrome) Expected: 09/23/2025, Expires: 09/23/2026EstradiolLabRoutine Abnormal uterine bleeding (AUB) PCOS (polycystic ovarian syndrome) Ordered: 09/23/2025ProgesteroneLabRoutine Abnormal uterine bleeding (AUB) PCOS (polycystic ovarian syndrome) Ordered: 09/23/2025documented as of this encounter Visit Diagnoses Diagnosis Abnormal uterine bleeding (AUB) History of endometrial ablation PCOS (polycystic ovarian syndrome) Polycystic ovaries documented in this encounter Care Teams Team MemberRelationshipSpecialtyStart DateEnd Date Shaun Downey DO [address] [place] [phone] [facility]05/09/23documented as of this encounter
--- NOTE | 2025-10-06 08:54 | US_ITS ---
The [address] [address] Patient Name: BRIAN SULLIVAN MRN: [id number] date: 1995 Sex: F Assigned Patient Location: US Current Patient Location: US Accession/Order Number: [id number] Exam Date: 10/06/2025 08:56 Report Date: 10/06/2025 11:48 At the request of: INES WYATT DO Procedure: US pelvis w/ transvaginal ULTRASOUND PELVIS WITH TRANSVAGINAL COMPARISON: 07/05/[address] 05/18/2024 CLINICAL DATA: Abnormal uterine bleeding post ablation 3 years ago. Polycystic ovary disease. Real-time ultrasound evaluation the pelvis was performed utilizing both transabdominal and transvaginal approach. TRANSABDOMINAL: Estimated uterine size is approximately 7.9 x 3.5 x 4.3 cm. No focal myometrial abnormalities are seen. The endometrial lining is estimated at 3 - 4 mm. Both ovaries are identified and there are small follicles. TRANSVAGINAL: Transvaginal imaging was performed to better evaluate the uterus and adnexa. By this approach, no focal myometrial abnormalities are seen. The endometrial lining is estimated at 3 mm. The right ovary measures 2.6 x 1.8 x 2.3 cm. The left ovary measures 4.0 x 2.0 x 3.3 cm. There are small follicles. No dominant adnexal cysts are seen. There is documentation of ovarian blood flow. A trace amount of free fluid is present at the posterior cul-de-sac. US/US pelvis w/ transvaginal IMPRESSION: NO DOMINANT ADNEXAL CYSTS. TRACE AMOUNT FREE FLUID. NO ACUTE FINDINGS. Impression dictated by: Cassandra Rubio M.D. 10/06/2025 11:48 AM Dictation Location: [place] [address] Electronically authenticated by: [id number] Y Date: 10/06/2025 11:48
--- OUTSIDE RECORDS SUMMARY | 2025-10-06 08:55 | XMS_ITS | Patient Health Record ---
Author Organization [facility] Address [address] [place] [address] Care Team Providers Care License Registration Examiner Name Role Phone Raleigh Madai Primary Care Provider Eviegwendolyn Rika Unavailable [phone] Mary Camara Unavailable [phone] Allergies Allergen (clinical drug ingredient) Drug/Non Drug Allergy documented on EMR Reaction Allergy Type Onset Date Status ibuprofen Ibuprofen tongue sores Drug Allergy ActivesulfacetamideSulfacetamide SodiumhivesDrug AllergyActive Reason For Referral No Information Medications Medication SIG (Take, Route, Frequency, Duration) Notes Start Date End Date Status Mirtazapine 45 MG Tablet TAKE 1 TABLET Orally at bedtime; Duration: 30 days ActiveALPRAZolam 1 MG Tabletas directed Orally dailyActiveEszopiclone 2 MG Tablet1 tablet immediately before bedtime Orally Once a day; Duration: 30 days 06/06/2022Not-Taking/PRNOndansetron 4 MG Tablet Disintegrating1 tablet on the tongue and allow to dissolve Orally as needed (prn)ActivePantoprazole Sodium 40 MG Tablet Delayed Release1 tablet Orally Once a day; Duration: 30 daysActive Caplyta 42 MG Capsule1 capsule Orally Once a day; Duration: 30 daysActive Topiramate 50 MG Tablet1 tablet Orally twice daily01/11/2024Not-Taking/PRN Ziprasidone HCl 20 MG Capsule1 capsule with food Orally Twice a day; Duration: 30 days10/25/2022Not-Taking/PRNLarin 1.5/30 1.5-30 MG-MCG Tablet1 tablet Orally dailyNot-Taking/PRNhydrOXYzine HCl 50 MG Tablet1 tablet Orally every 6 hours; Duration: 30 daysActiveXanax 0.5 MG Tablet1 tablet orally as needed (prn) Not-Taking/PRNPotassium Chloride ER 20 MEQ Tablet Extended ReleaseTAKE 1 TABLET BY MOUTH EVERY DAY Oral; Duration: 30 DaysActive Social History Tobacco Use: Social History Observation Description Date Details (start date - stop date) Unknown Social History GeneralSocial InfoQuestionAnswerNotesDepression Screening (PHQ-9):Little interest or pleasure in doing thingsMore than half the daysFeeling down, depressed, or hopelessMore than half the daysTrouble falling or staying asleep, or sleeping too muchSeveral daysFeeling tired or having little energyNot at all Poor appetite or overeatingMore than half the daysFeeling bad about yourself-or that you are a failure or have let yourself or your family downMore than half the daysTrouble concentrating on things, such as reading the newspaper or watching televisionMore than half the daysMoving or speaking so slowly that other people could have noticed. Or the opposite being so fidgetyor restless that you have been moving around a lot more than usualMore than half the days Thoughts that you would be better off , or of hurting yourself in some way Not at allTotal Qmcwk99QhmkysbyxrfkqKydojyjq DepressionSubstance abuse/mental health issues of patient/familyPatient -DeniesAbility to understand healthcare/treatmentPatient:GoodTobacco Screen:Are you a:Uses tobacco in other formsAdditional Findings: Tobacco Bfc-ZvrxTo-ryszeqkez smokerSexual Hx:Had sex in the last 12 months (vaginal, oral, or anal)?Yes? withMen onlySocial/Support Concerns:Patient:NoAlcohol Screening:Did you have a drink containing alcohol in the past year?Yes? How often did you have a drink containing alcohol in the past year?Two to four times a month (2 points)? How many drinks did you have on a typical day when you were drinking in the past year?3 or 4 (1 point)? 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) ActiveconfirmedProblemSchizophrenia (46148448)Schizophrenia, undifferentiated (F20.3)ActiveconfirmedProblemPanic disorder (382450749)Panic Disorder (F41.0) ActiveconfirmedProblemInsomnia (759704426)Insomnia disorder with non-sleep disorder mental comorbidity (G47.00)Activeconfirmed Vital Signs Heart Rate 64 /min 07/01/2025 Esjjgflj894 %07/01/2025lood pressure mm Hg07/01/20259299Zzwduc30 in 07/01/2025lood pressure bhuogdgr494 mm Hg07/01/20251540Nkihct829.0 lbs07/01/2025MI 23.2 kg/m207/01/2025 Encounters Encounter Location Date Provider Diagnosis [facility] [address] [place] [address] [facility] [place] [address]/[facility] [facility] [place] [address]/[facility] [facility] [place] [address]/ [facility] [facility] [place] [address] 10/24/2024[facility] [place] [address] 04/30/2025Julie ShedronPanic Disorder [address] [place], [place] [address] [place] [address]/Julie ShedronPanic Disorder [address] [place] [address]/Julie ShedronPanic Disorder [address] [place], [place] [address] [place] [address]/ Rika ShedronPanic Disorder F41.0 and Schizophrenia, undifferentiated F20.[address] [place], [place] [address] [address] [facility] [place] [address]/Julie ShedronPanic Disorder F41.0[facility] [facility] [place] [place] [address]/03/2025 Rika ShedronPanic Disorder F41.0[facility] [facility] [place] [place] [address]/11/2024Julie ShedronPanic Disorder F41.0[facility] Medical [address] [facility] [place] [place] [address]/Julie ShedronPanic Disorder F41.0[facility] [facility] [place] [place] [address]/05/2025Julie ShedronPanic Disorder F41.0[facility] [facility] [place] [address]/ Rika ShedronSchizophrenia, undifferentiated F20.3 and Panic Disorder F41.0[facility] [facility] [place] [address]/Julie Shedron Schizophrenia, undifferentiated F20.3 and Panic Disorder F41.[address] [place] [address] [address] [facility] [place] [address]/09/2025Julie ShedronPanic Disorder F41.0[facility] [facility] [place] [address]/03/2025Julie ShedronPanic Disorder F41.0 and Schizophrenia, undifferentiated F20.3F Medical [address] [facility] [place] [place] [address]/Julie ShedronPanic Disorder F41.0[facility] [facility] [place] [place] [address]/ Madai CoxSchizophrenia, undifferentiated F20.3 and Insomnia disorder with non- sleep disorder mental comorbidity G47.[address] [place], [place] [address] [address] [facility] [place] [address]/hristy CoxSchizophrenia, undifferentiated F20.3 and Insomnia disorder with non-sleep disorder mental comorbidity G47.00[facility] [place] [address]/hristy Storey Schizophrenia, undifferentiated F20.3 and Insomnia disorder with non-sleep disorder mental comorbidity G47.00[facility] [place] [address]/hristy CoxSchizophrenia, undifferentiated F20.3 and Insomnia disorder with non-sleep disorder mental comorbidity G47.00[facility] [place] [address]/hristy CoxSchizophrenia, undifferentiated F20.3 ; Insomnia disorder with non-sleep disorder mental comorbidity G47.00 and Panic Disorder F41.0[facility] [place] [address]/Leslie NeubergerSchizophrenia, undifferentiated F20.3 ; Insomnia disorder with non-sleep disorder mental comorbidity G47.00 and Panic Disorder F41.0 Assessments Encounter Date Diagnosis (ICD Code) Assessment Notes Treatment Notes Treatment Clinical Notes Section Notes 10/28/2024 Schizophrenia, undifferentiated (ICD-10 - F20.3) . Based on DSM V, this patient meets the criteria for the diagnosis of: . Schizophrenia . The diagnosis of schizophrenia requires the presence of characteristic symptoms of the disorder (delusions, hallucinations, disorganized speech or behavior, and/or negative symptoms) coupled with social and/or occupational dysfunction for at least six months in the absence of another diagnosis that would better account for the presentation. . Recommended treatment is: _ Recommended treatment for Schizophrenia includes FDA approved and OFF label medications: second generation antipsychotics and mood stabilizers. Second generation antipsychotic medications can cause headache, drowsiness, agitation, dizziness, nausea, or extrapyramidal symptoms such as tremors, muscle spasms, slowness of movement or jerking of muscles. . The goals of maintenance treatment of schizophrenia are to minimize symptoms and functional impairments, minimize side effects of antipsychotic therapy, avoid relapses, and promote recovery that allows self-determination, full integration into society, and pursuit of personal goals. . The patient verbalizes understanding with all questions answered thoroughly and is in agreement with treatment plan. . . GOALS: . Maintain medication regimen _Improve mood stability _Improve anxiety control _Improve social and interpersonal functioning . Informed consent obtained: YES, we discussed the diagnosis/diagnoses, the treatment options, treatment(s) recommended vs. no treatment. We discussed risks and benefits of treatment options, treatmentrecommendations vs. no treatment. . Currently at low risk for self harm. Denies ongoing feelings of hopelessness. Denies ongoing suicidal ideation, intent or plan in session. . . Pharmacological management: . Alternative medication plans were discussed with the patient/guardian. All relevant side effects and potential adverse effects were discussed with the patient/guardian. Standard cautions and potential benefits were discussed. Patient/Guardian consented to the start/continuation of the treatment. . . Adjust lamotrigine dose per patient request. She would like dose decreased. 02/26/2025Schizophrenia, undifferentiated (ICD-10 - F20.3) . Based on DSM V, this patient meets the criteria for the diagnosis of: . Schizophrenia . The diagnosis of schizophrenia requires the presence of characteristic symptoms of the disorder (delusions, hallucinations, disorganized speech or behavior, and/or negative symptoms) coupled with social and/or occupational dysfunction for at least six months in the absence of another diagnosis that would better account for the presentation. . Recommended treatment is: _ Recommended treatment for Schizophrenia includes FDA approved and OFF label medications: second generation antipsychotics and mood stabilizers. Second generation antipsychotic medications can cause headache, drowsiness, agitation, dizziness, nausea, or extrapyramidal symptoms such as tremors, muscle spasms, slowness of movement or jerking of muscles. . The goals of maintenance treatment of schizophrenia are to minimize symptoms and functional impairments, minimize side effects of antipsychotic therapy, avoid relapses, and promote recovery that allows self-determination, full integration into society, and pursuit of personal goals. . The patient verbalizes understanding with all questions answered thoroughly and is in agreement with treatment plan. . . GOALS: . Maintain medication regimen _Improve mood stability _Improve anxiety control _Improve social and interpersonal functioning . Informed consent obtained: YES, we discussed the diagnosis/diagnoses, the treatment options, treatment(s) recommended vs. no treatment. We discussed risks and benefits of treatment options, treatmentrecommendations vs. no treatment. . Currently at low risk for self harm. Denies ongoing feelings of hopelessness. Denies ongoing suicidal ideation, intent or plan in session. . . Pharmacological management: . Alternative medication plans were discussed with the patient/guardian. All relevant side effects and potential adverse effects were discussed with the patient/guardian. Standard cautions and potential benefits were discussed. Patient/Guardian consented to the start/continuation of the treatment. . 04/30/2025Schizophrenia, undifferentiated (ICD-10 - F20.3) . Based on DSM V, this patient meets the criteria for the diagnosis of: . Schizophrenia . The diagnosis of schizophrenia requires the presence of characteristic symptoms of the disorder (delusions, hallucinations, disorganized speech or behavior, and/or negative symptoms) coupled with social and/or occupational dysfunction for at least six months in the absence of another diagnosis that would better account for the presentation. . Recommended treatment is: _ Recommended treatment for Schizophrenia includes FDA approved and OFF label medications: second generation antipsychotics and mood stabilizers. Second generation antipsychotic medications can cause headache, drowsiness, agitation, dizziness, nausea, or extrapyramidal symptoms such as tremors, muscle spasms, slowness of movement or jerking of muscles. . The goals of maintenance treatment of schizophrenia are to minimize symptoms and functional impairments, minimize side effects of antipsychotic therapy, avoid relapses, and promote recovery that allows self-determination, full integration into society, and pursuit of personal goals. . The patient verbalizes understanding with all questions answered thoroughly and is in agreement with treatment plan. . . GOALS: . Maintain medication regimen _Improve mood stability _Improve anxiety control _Improve social and interpersonal functioning . Informed consent obtained: YES, we discussed the diagnosis/diagnoses, the treatment options, treatment(s) recommended vs. no treatment. We discussed risks and benefits of treatment options, treatmentrecommendations vs. no treatment. . Currently at low risk for self harm. Denies ongoing feelings of hopelessness. Denies ongoing suicidal ideation, intent or plan in session. . . Pharmacological management: . Alternative medication plans were discussed with the patient/guardian. All relevant side effects and potential adverse effects were discussed with the patient/guardian. Standard cautions and potential benefits were discussed. Patient/Guardian consented to the start/continuation of the treatment. . 02/26/2025Insomnia disorder with non-sleep disorder mental comorbidity (ICD-10 - G47.00)Continue with mirtazepine for sleep03/13/2025Panic Disorder (ICD-10 - F41.0)11/19/2024Panic Disorder (ICD-10 - F41.0)12/05/2024Schizophrenia, undifferentiated (ICD-10 - F20.3) . Based on DSM V, this patient meets the criteria for the diagnosis of: . Schizophrenia . The diagnosis of schizophrenia requires the presence of characteristic symptoms of the disorder (delusions, hallucinations, disorganized speech or behavior, and/or negative symptoms) coupled with social and/or occupational dysfunction for at least six months in the absence of another diagnosis that would better account for the presentation. . Recommended treatment is: _ Recommended treatment for Schizophrenia includes FDA approved and OFF label medications: second generation antipsychotics and mood stabilizers. Second generation antipsychotic medications can cause headache, drowsiness, agitation, dizziness, nausea, or extrapyramidal symptoms such as tremors, muscle spasms, slowness of movement or jerking of muscles. . The goals of maintenance treatment of schizophrenia are to minimize symptoms and functional impairments, minimize side effects of antipsychotic therapy, avoid relapses, and promote recovery that allows self-determination, full integration into society, and pursuit of personal goals. The patient verbalizes understanding with all questions answered thoroughly and is in agreement with treatment plan. . . GOALS: . Maintain medication regimen _Improve mood stability _Improve anxiety control _Improve social and interpersonal functioning . Informed consent obtained: YES, we discussed the diagnosis/diagnoses, the treatment options, treatment(s) recommended vs. no treatment. We discussed risks and benefits of treatment options, treatmentrecommendations vs. no treatment. . Currently at low risk for self harm. Denies ongoing feelings of hopelessness. Denies ongoing suicidal ideation, intent or plan in session. . . Pharmacological management: . Alternative medication plans were discussed with the patient/guardian. All relevant side effects and potential adverse effects were discussed with the patient/guardian. Standard cautions and potential benefits were discussed. Patient/Guardian consented to the start/continuation of the treatment. . 12/05/2024Insomnia disorder with non-sleep disorder mental comorbidity (ICD-10 - G47.00)10/23/2024Schizophrenia, undifferentiated (ICD-10 - F20.3)03/31/2025Panic Disorder (ICD-10 - F41.0)04/20/2025Panic Disorder (ICD-10 - F41.0)04/30/2025 Panic Disorder (ICD-10 - F41.0)04/30/2025Insomnia disorder with non-sleep disorder mental comorbidity (ICD-10 - G47.00)05/20/2025Panic Disorder (ICD-10 - F41.0)07/01/2025Schizophrenia, undifferentiated (ICD-10 - F20.3) . Positive symptoms include HALLUCINATIONS (auditory), DELUSIONS (persecutory, referential, grandiose, erotomanic, nihilistic, somatic), disorganized thoughts or behavior. DISORGANIZED THOUGHTS are represented through DISORGANIZED SPEECH (derailment, loose associations, incoherence) must be severe enough to substantially interfere with effective communication. CATATONIA is grossly disorganized and abnormal motor behavior. . Negative symptoms include DIMINISHED EMOTIONAL EXPRESSION, AVOLITION (decrease in motivated self-initiated purposeful activities), ALOGIA (diminished speech output), ASOCIALITY (lacks interest in social interactions), and ANHEDONIA (inability to experience pleasure). . 10/28/2024Insomnia disorder with non-sleep disorder mental comorbidity (ICD-10 - G47.00)11/05/2024Schizophrenia, undifferentiated (ICD-10 - F20.3)12/11/2024Panic Disorder (ICD-10 - F41.0)12/26/2024Panic Disorder (ICD-10 - F41.0)01/02/2025 Schizophrenia, undifferentiated (ICD-10 - F20.3) . Based on DSM V, this patient meets the criteria for the diagnosis of: . Schizophrenia . The diagnosis of schizophrenia requires the presence of characteristic symptoms of the disorder (delusions, hallucinations, disorganized speech or behavior, and/or negative symptoms) coupled with social and/or occupational dysfunction for at least six months in the absence of another diagnosis that would better account for the presentation. . Recommended treatment is: _ Recommended treatment for Schizophrenia includes FDA approved and OFF label medications: second generation antipsychotics and mood stabilizers. Second generation antipsychotic medications can cause headache, drowsiness, agitation, dizziness, nausea, or extrapyramidal symptoms such as tremors, muscle spasms, slowness of movement or jerking of muscles. . The goals of maintenance treatment of schizophrenia are to minimize symptoms and functional impairments, minimize side effects of antipsychotic therapy, avoid relapses, and promote recovery that allows self-determination, full integration into society, and pursuit of personal goals. . The patient verbalizes understanding with all questions answered thoroughly and is in agreement with treatment plan. . . GOALS: . Maintain medication regimen _Improve mood stability _Improve anxiety control _Improve social and interpersonal functioning . Informed consent obtained: YES, we discussed the diagnosis/diagnoses, the treatment options, treatment(s) recommended vs. no treatment. We discussed risks and benefits of treatment options, treatmentrecommendations vs. no treatment. . Currently at low risk for self harm. Denies ongoing feelings of hopelessness. Denies ongoing suicidal ideation, intent or plan in session. . . Pharmacological management: . Alternative medication plans were discussed with the patient/guardian. All relevant side effects and potential adverse effects were discussed with the patient/guardian. Standard cautions and potential benefits were discussed. Patient/Guardian consented to the start/continuation of the treatment. . 01/02/2025Insomnia disorder with non-sleep disorder mental comorbidity (ICD-10 - G47.00)01/07/2025Panic Disorder (ICD-10 - F41.0)01/30/2025Panic Disorder (ICD-10 - F41.0)02/12/2025Panic Disorder (ICD-10 - F41.0)02/26/2025Panic Disorder (ICD- 10 - F41.0)11/05/2024Panic Disorder (ICD-10 - F41.0)10/23/2024Panic Disorder (ICD-10 - F41.0)12/11/2024Schizophrenia, undifferentiated (ICD-10 - F20.3) 03/31/2025Schizophrenia, undifferentiated (ICD-10 - F20.3)07/01/2025Insomnia disorder with non-sleep disorder mental comorbidity (ICD-10 - G47.00) Recommended treatment is: _ FDA approved medication for this age group include Selective Serotonin Reuptake Inhibitors (SSRI) and Selective Norepinephrine Reuptake Inhibitors (SNRI). . Selective serotonin reuptake inhibitors? can cause nausea, headache, upset stomach, diarrhea, constipation, anxiety, irritability, and sexual dysfunction. . Please monitor for worsening of symptoms, especially suicidal ideations or morbid thoughts, and call office and or go to the emergency department immediately. Pt does not endorse exhibiting symptoms aligning with javan. . The patient verbalizes understanding with all questions answered thoroughly and is in agreement with treatment plan. . Continue current treatment plan Patient/Guardian will call sooner if symptoms worsen. Patient understands to go to ER if needed if symptoms become severe. Crisis Intervention plan was discussed and agreed upon. Patient/Guardian will call 911 in case of emergency. Emergency contact information was provided to the patient/guardian. 04/30/2025Panic Disorder (ICD-10 - F41.0)07/01/2025Panic Disorder (ICD-10 - F41.0)Hydroxyzine: Made aware that the med will cause sedation, dry mouth, and urinary retention. Do not take before driving a car until you know how the med will affect you. Do not take the medication if . Do not take with other DRAWER LINER depressants. Call 911 for difficulty breathing. Plan Of Treatment No Information Insurance Providers Payer Name Payer Address Payer Phone Subscriber Number Group Number Insured Name Patient Relationship to Insured Coverage Start Date Coverage End Date [employer] [place] Medicaid [address] [place] [address] [id number] Suzette SULLIVAN - patient is the [id number] 2022 [employer] [facility] CareSourcePO [address] [place] [id number], EMILIESelf - patient is the [id number] 2022[facility] [employer]-termed [address] [place] [id number], EMILIESelf - patient is the insured z[employer] MEDICAID [employer] after [facility] [employer]AD[facility]-termed [address] [place] [id number], EMILIESelf - patient is the [id number] [place] MedicaidPO [address] [place] [id number], EMILIBolalf - patient is the insured 2022 Medical (General) History Medical History History ICD Code anxiety insomniamass of left breastpanic disorderschizophreniaSurgical History Surgery Date(Month/Year) bladder stretch blood clot, left fallopian tubetonsillectomyFallopian tube removal, bilateral 06/30/2022Hospitalization History Reason Date(Month/Year) see surgical Child [id number] [facility], [id number]
--- OUTSIDE RECORDS SUMMARY | 2025-10-06 08:55 | XMS_ITS | Patient Health Record ---
Author Organization [facility] in [place] Address [address] [place] [address] Care Team Providers Care Tuft Machine Operator Name Role Phone Shaun Downey DO Primary Care Provider Unavailabl e Allergies Allergen (clinical drug ingredient) Drug/Non Drug Allergy documented on EMR Reaction Allergy Type Onset Date Status ibuprofen Ibuprofen hives Drug Allergy ActiveSulfacetamide Sod-SulfurrashDrug AllergyActive Reason For Referral No Information Medications Medication SIG (Take, Route, Frequency, Duration) Notes Start Date End Date Status Zofran ActiveXanaxActiveRemeronActivemetFORMIN HClActiveGeodonActiveCaplytaActive Plan Of Treatment No Information Insurance Providers Payer Name Payer Address Payer Phone Subscriber Number Group Number Insured Name Patient Relationship to Insured Coverage Start Date Coverage End Date [employer] [place] [employer] [address] [place] [address] [id number] Juancarlos Lora - patient is the [id number] 2022 Medical (General) History Medical History History ICD Code Depression F32.A Anxiety F41.9 Surgical History Surgery Date(Month/Year) T&A 2015 Bladder streched 2014 Tubal/ ablation 2021 left breast biopsy 04/2022 Hospitalization History Reason Date(Month/Year) see above Psychiatric [id number]
--- OUTSIDE RECORDS SUMMARY | 2025-10-06 08:55 | XMS_ITS | Clinical Summary ---
Author Organization [facility] Address [address] [place] [address] Care Team Providers Care Counterintelligence/Humint Specialist Name Role Phone Shaun Downey Emir JEFFERSON Primary Care Provider [phone] Allergies Active AllergyReactionsCriticalityNoted BxosCznbryklNjvejhxsuelkm62/24/2024 Other Reaction(s): phsychosis Other Reaction(s): Other (See Comments), phsychosis PHSYCHOSIS Onset Date: 07/23/2023 IbuprofenHives,Other,Unknown,Pngahqcr21/22/2022 Other Reaction(s): Diarrhea, tongue sores, hives, tongue sores TONGUE SORE DovguLlxlJyo56/31/2023Sulfa AntibioticsHives,Unknown,NouyGbo9412/27/2021 Other Reaction(s): Hives HdyvprftgxkvvUimysgx58/26/2023 Other Reaction(s): hives Medications MedicationSigDispense QuantityRefillsLast FilledStart DateEnd DateStatus ALPRAZolam (Xanax) 1 MG tablet Take 1 mg by mouth as needed at bedtime.Active Lumateperone Tosylate (CAPLYTA PO) CaplytaActive Lumateperone Tosylate (Caplyta) 10.5 MG capsule CaplytaActive mirtazapine (Remeron) 45 MG tablet Take 45 mg by mouth at bedtime.08/02/2023ctive pantoprazole (ProtoNix) 40 MG EC tablet 1 (one) time each day at the same timeActive Active Problems ProblemNoted DateDiagnosed DateEncounter for follow-up06/04/2023 Encounters DateTypeDepartmentCare WnwfOmzhlrshqdd07/17/2025 2:10 PM ESTOffice Visit [facility] [address] [facility] [facility] [address] Ghanshyam Nieto DO Abnormal uterine bleeding (AUB); History of endometrial ablation; PCOS (polycystic ovarian syndrome)09/23/2025amboo flowsheet [facility] [address] [facility] [address] Ghanshyam Nieto DO 08/21/2025Telephone [facility] [address] [facility] [place] [phone] Vane Nixon MA from Last 3 Months Family History Medical HistoryRelationNameCommentsBreast cancerFather's SisterArthritisMaternal GrandfatherCOPDMaternal GrandfatherCongenital heart diseaseMaternal Grandfather HyperlipidemiaMaternal GrandfatherHypertensionMaternal GrandfatherArthritis Maternal GrandmotherCOPDMaternal GrandmotherDiabetesMaternal Grandmother HyperlipidemiaMaternal GrandmotherHypertensionMaternal GrandmotherArthritis MotherCancerMotherMental illnessMotherArthritisPaternal GrandfatherCOPDPaternal GrandfatherHeart diseasePaternal GrandfatherHyperlipidemiaPaternal Grandfather HypertensionPaternal GrandfatherStrokePaternal GrandfatherArthritisPaternal GrandmotherHyperlipidemiaPaternal GrandmotherHypertensionPaternal Grandmother Mental illnessPaternal GrandmotherNo Known ProblemsSister3 sistersNo Known ProblemsSonColon cancerNeg HxOvarian cancerNeg HxRelationNameStatusComments FatherAliveFather's SisterMaternal GrandfatherMaternal GrandmotherMotherAlive Paternal GrandfatherPaternal GrandmotherSisterSonAlive Social History Tobacco UseTypesPacks/DayYears UsedDateSmoking Tobacco: Every DayCigarettes Tobacco Cessation:Ready to Q uit: Not Asked; Counseling Given: Not Answered Alcohol UseStandard Drinks/WeekCommentsNever0 (1 standard drink = 0.6 oz pure alcohol)CommentsNoSex and Gender InformationValueDate RecordedSex Assigned at BirthNot on fileLegal ZufRbfued32/15/2023 7:00 PM EDTGender Identity Not on fileSexual OrientationNot on fileOccupationIndustryJob Start DateJob End DateUnemployedNot on fileNot on fileNot on file Last Filed Vital Signs Vital SignReadingTime TakenCommentsBlood Lotekjmt954/6209/23/2025 2:40 PM EST Drcng709607/10/2024 3:49 PM CRHRqxrfnokdkn72.7 ??C (98 ??F)07/10/2024 3:49 PM EDT Respiratory Rate--Oxygen Bmhsxongjk55%07/10/2024 3:49 PM EDTInhaled Oxygen Concentration--Blfhdz03.6 kg (138 lb)09/23/2025 2:40 PM QHRSxtwaq849 cm (5' 3 ) 09/23/2025 2:40 PM ESTBody Mass Index24.45111/24/2024 2:40 PM EST Plan of Treatment DateTypeDepartmentCare Team (Latest Contact Info)Eguljvxnyer88/13/2026 2:00 PM EDTProcedure Visit [facility] [address] [facility] [address] Kelly Quiroga PA [address] [place] [address] Insurance Care Teams Team MemberRelationshipSpecialtyStart DateEnd Date Shaun Downey, [address] [place] [address] [facility] - General05/09/23
--- OUTSIDE RECORDS SUMMARY | 2025-10-06 08:55 | XMS_ITS | Clinical Summary ---
Author Organization [facility] Address [address] [place] [address] Care Team Providers Care Cigarette Seller Name Role Phone Unavailable Primary Care Provider Unavailabl e Source Comments The following information is NOT included in Care Everywhere downloads:Psychiatric notes, ECG results, Cardiac Rehab notes, Pulmonary Function notes, data from SmartForms (includes but not limited toPregnancy data,audiograms, eye exams, pre-surgical evaluation notes, well-child exam data).[facility] Allergies Active AllergyReactionsCriticalityNoted OfelOhqzbbkmHiuua31/30/2015Ibuprofen 09/06/2015Sulfa Rrdjugkjplh03/30/2015 Medications MedicationSigDispense QuantityRefillsLast FilledStart DateEnd DateStatus trazodone 50 MG tablet Take 50 mg by mouth at bedtime.Active sertraline (ZOLOFT) 50 MG tablet Take 50 mg by mouth daily.Active Norgestim-Eth Estrad Triphasic (TRI-SPRINTEC ORAL) Take by mouth.Active acetaminophen (TYLENOL) 160 MG/5ML oral suspension Take 20 mL by mouth every 4 hours as needed for Fever or Pain. 1 Bottle Active chlorhexidine (PERIDEX) 0.12 % oral solution Take 15 mL by mouth 2 times daily. 1 Bottle Active Social History Tobacco UseTypesPacks/DayYears UsedDateSmoking Tobacco: NeverSmokeless Tobacco: NeverAlcohol UseStandard Drinks/WeekCommentsNo0 (1 standard drink = 0.6 oz pure alcohol)Substance UseTypesUse/WeekCommentsNoCommentsNoSex and Gender InformationValueDate RecordedSex Assigned at BirthNot on fileLegal SexFemale 09/06/2015 3:21 PM ESTGender IdentityNot on fileSexual OrientationNot on file Last Filed Vital Signs Vital SignReadingTime TakenCommentsBlood Ogoaznvg335/60011/29/2015 1:53 PM EST Quoif363011/29/2015 1:53 PM DOIZsurcqbpuxz99.4 ??C (99.3 ??F)11/29/2015 1:53 PM ESTRespiratory Mluk515711/29/2015 1:53 PM ESTOxygen Ymgbnbrons75%11/11/2015 1:00 PM ESTInhaled Oxygen Concentration--Cpzdry86.9 kg (110 lb)11/29/2015 1:53 PM EST Datsyz029 cm (5' 3 )11/29/2015 1:53 PM ESTBody Mass Index19.49011/29/2015 1:53 PM EST Plan of Treatment Health MaintenanceDue DateLast DoneCommentsHIV Test2012Hepatitis C Rrgrnype30/10/2015Tdap Gbrokvz1109/16/2015Hepatitis A (HAV) Vaccine (optional start 19+ years)2016Hepatitis B (HBV) Vaccine (1 of 3 - 19+ 3-dose series) 2016Pap Smear2018HPV Vaccine (optional start 27-45 years)2024 COVID-19 Vaccine (1 - 2024- season)2025Influenza Vaccine (#1)2025 Shingles (RZV) Vaccine (1 of 2)2047MammographyDiscontinuedPneumococcal Vaccine(s)Aged OutNo longer eligible based on patient's age to complete this topic Insurance
--- OUTSIDE RECORDS SUMMARY | 2025-10-06 08:55 | XMS_ITS | Clinical Summary ---
Author Organization [facility] Address [address] [place] [address] Phone Care Team Providers Care Replenisher Name Role Phone Unavailable Primary Care Provider Unavailabl e Social History Tobacco UseTypesPacks/DayYears UsedDateSmoking Tobacco: Never Assessed CommentsUnknownSex and Gender InformationValueDate RecordedSex Assigned at Not on fileLegal RlvConosx27/25/2022 2:18 PM ESTGender IdentityNot on fileSexual OrientationNot on file Plan of Treatment Health MaintenanceDue DateLast DoneCommentsHIV Zobykfwwx1997Lipid Panel 1997MMR Vaccines (1 of 1 - Standard series)1998Hepatitis C Screening 2015Hepatitis B Vaccines (1 of 3 - 19+ 3-dose series)2016Cervical Cancer Mjrbtqpzu96/10/2018HPV/Wdrjyy4509/16/2018Pap Smear2018DTaP/Tdap/Td Vaccines (1 - Tdap)2019Yearly Adult Oxubqpdd33/24///2021HPV Vaccines (1 - 3-dose standard series)4COVID-19 Vaccine ( - season)2025Influenza Vaccine (#1)2025Zoster Vaccines (1 of 2) 2047HIB VaccinesAged OutNo longer eligible based on patient's age to complete this topicHepatitis A VaccinesAged OutNo longer eligible based on patient's age to complete this topicIPV VaccinesAged OutNo longer eligible based on patient's age to complete this topicMeningococcal VaccineAged OutNo longer eligible based on patient's age to complete this topicPneumococcal Vaccine: Pediatrics and At-Risk Adult PatientsAged OutNo longer eligible based on patient's age to complete this topicRotavirus VaccinesAged OutNo longer eligible based on patient's age to complete this topic
--- OUTSIDE RECORDS SUMMARY | 2025-10-06 08:55 | XMS_ITS | Clinical Summary ---
Author Organization [facility] Address [address] [place] [address] Care Team Providers Care Centrifugal Screen Tender Name Role Phone Unavailable Primary Care Provider Unavailabl e Social History Tobacco UseTypesPacks/DayYears UsedDateSmoking Tobacco: Never Assessed CommentsUnknownSex and Gender InformationValueDate RecordedSex Assigned at Not on fileLegal YsnSvfwgq40/18/2025 5:26 PM ESTGender IdentityNot on fileSexual OrientationNot on file Plan of Treatment DateTypeDepartmentCare Team (Latest Contact Info)Ucphktrtehk56/30/2026 11:30 AM ESTOffice Visit [facility] [address] [place] [phone] [employer], Benita, MANAGER OF SALES [address] [place] [address] Health MaintenanceDue DateLast DoneCommentsDepression Aevaqovaj83/10/2009 Varicella Vaccines (1 of 2 - 13+ 2-dose series)2010Pneumococcal Vaccine: Pediatrics (0 to 5 Years) and At-Risk Patients (6 to 64 Years) (1 of 2 - PCV) 2016Pap Smear2018COVID-19 Vaccine (1 - 2024- season)2025 Influenza Vaccine (#1)2025dult Nvxcwyc95/01/2023, 02/21/2010 Zoster Vaccines (1 of 2)2047HIB GtcphlfnTnyyxnzvp71/19/1999, 06/16/1998, 04/13/1998, Additional history existsIPV GabzerkcRfxucehja78/01/2003, 10/18/1998, 04/13/1998, Additional history existsHPV VaccinesCompleted 03/16/2014, 02/27/2013, 12/06/2012Meningococcal B VaccineAged OutNo longer eligible based on patient's age to complete this topicMeningococcal VaccineAged OutNo longer eligible based on patient's age to complete this topicRotavirus VaccinesAged OutNo longer eligible based on patient's age to complete this topic
--- OUTSIDE RECORDS SUMMARY | 2025-10-06 08:55 | XMS_ITS | Encounter Summary ---
Author Organization [facility] Address [address] [facility] [place] [address] Care Team Providers Care Class C Truck Driver Name Role Phone Shaun Downey Emir JEFFERSON Primary Care Provider [phone] Encounter Details DateTypeDepartmentCare Team (Latest Contact Info)Xuauwjfpudc88/17/2025amboo flowsheet [facility] [address] [place] [address] [place] [address] Ghanshyam Nieto DO [address] [facility] [address] [place], [place] [address] Social History Tobacco UseTypesPacks/DayYears UsedDateSmoking Tobacco: Every DayCigarettes Alcohol UseStandard Drinks/WeekCommentsNever0 (1 standard drink = 0.6 oz pure alcohol)CommentsNoSex and Gender InformationValueDate RecordedSex Assigned at BirthNot on fileLegal JzlYolgnr52/15/2023 7:00 PM EDTGender Identity Not on fileSexual OrientationNot on fileOccupationIndustryJob Start DateJob End DateUnemployedNot on fileNot on fileNot on filedocumented as of this encounter Plan of Treatment DateTypeDepartmentCare Team (Latest Contact Info)Dnkmkawxfmu90/13/2026 2:00 PM EDTProcedure Visit [facility] [address] [place] [address] [place] [address] Kelly Quiroga PA [address] [place], [facility] documented as of this encounter Visit Diagnoses Not on filedocumented in this encounter Care Teams Team MemberRelationshipSpecialtyStart DateEnd Date Shaun Downey DO [facility] [address] PCP - General05/09/23documented as of this encounter
--- OUTSIDE RECORDS SUMMARY | 2025-10-06 08:55 | XMS_ITS | Clinical Summary ---
Author Organization [facility] Address [address] [place] [address] Care Team Providers Care Signal And Communications Maintainer Name Role Phone James Zurita MD Unavailable [phone] Allergies Active AllergyReactionsCriticalityNoted FhmcJcslqfyeNfynuxuydCxynj51/22/2022 Sulfa (Sulfonamide Antibiotics)Hives12/27/2021 Medications MedicationSigDispense QuantityRefillsLast FilledStart DateEnd DateStatus mirtazapine (REMERON) 15 MG tablet Take 1 (one) tablet (15 mg total) by mouth nightly . 30 tablet ctive ARIPiprazole (Abilify) 2 MG tablet Take 1 (one) tablet (2 mg total) by mouth daily . 30 tablet ctive ALPRAZolam (XANAX) 0.5 MG tablet Indications:Anxiety disorder, unspecified typeTake 0.5 (one-half) tablet (0.25 mg total) by mouth daily as needed for anxiety . 10 tablet ctive Active Problems No known active problems Social History Tobacco UseTypesPacks/DayYears UsedDateSmoking Tobacco: NeverSmokeless Tobacco: CurrentCommentsUnknownSex and Gender InformationValueDate RecordedSex Assigned at BirthNot on fileLegal DnlYmnkxk38/22/2021 1:53 PM ESTGender Identity Mcjkkl1212/27/2021 1:45 PM EDTSexual BjwugjgdawnGwbaobpi19/22/2022 1:45 PM EDT Last Filed Vital Signs Vital SignReadingTime TakenCommentsBlood Ebtpcxfw692/7803 1:56 PM EDT Cphkq208712/27/2021 1:56 PM EDTTemperature--Respiratory Rkim4506 1:56 PM EDTOxygen Saturation--Inhaled Oxygen Concentration--Pclstv95.5 kg (126 lb 12.8 oz)12/27/2021 1:56 PM IRTBxsuwh263 cm (5' 3 )12/27/2021 1:56 PM EDTBody Mass Index22.46012/27/2021 1:56 PM EDT Plan of Treatment Health MaintenanceDue DateLast DoneCommentsWellness Visit2000Depression Screening/Follow-Up (PHQ-2/9)2009Varicella Vaccines (1 of 2 - 13+ 2-dose series)2010HIV Mfnadotvx33/10/2012Hepatitis C Vbeapduut25/10/2015Hepatitis B Vaccines (1 of 3 - 19+ 3-dose series)2016Tetanus/Diphtheria/Pertussis (1 - Tdap)2016Pap Smear2018HPV Vaccines (1 - 3-dose SCDM series) 4COVID-19 Vaccine (1 - season)2025Influenza Vaccine (#1) 2025Zoster Vaccines (1 of 2)2047RSV Vaccines (1 - 1-dose 75+ series) 2072HIB VaccinesAged OutNo longer eligible based on patient's age to complete this topicHepatitis A VaccinesAged OutNo longer eligible based on patient's age to complete this topicIPV VaccinesAged OutNo longer eligible based on patient's age to complete this topicMeningococcal ACWY VaccineAged OutNo longer eligible based on patient's age to complete this topicMeningococcal B VaccineAged OutNo longer eligible based on patient's age to complete this topic Pneumococcal VaccineAged OutNo longer eligible based on patient's age to complete this topicRotavirus VaccinesAged OutNo longer eligible based on patient's age to complete this topic Insurance * Guarantor: Cynthia Lora TypeRelation to PatientDate of BirthPhone Billing AddressPersonal/SnznvcJonk1995 [phone] (Home) [address] [place] [address] Care Teams Team MemberRelationshipSpecialtyStart DateEnd Date James Zurita MD [address] [place] [id number] Consulting PhysicianPsychiatry12/27/21
--- OUTSIDE RECORDS SUMMARY | 2025-10-06 08:55 | XMS_ITS | Clinical Summary ---
Author Organization [facility] Address [address] [place] [address] Care Team Providers Care Sap Integration Architect Name Role Phone Unavailable Primary Care Provider Unavailabl e Social History Tobacco UseTypesPacks/DayYears UsedDateSmoking Tobacco: Never Assessed CommentsUnknownSex and Gender InformationValueDate RecordedSex Assigned at Not on fileLegal MqxXqpgmj64/29/2025 8:51 AM EDTGender IdentityNot on fileSexual OrientationNot on file Plan of Treatment Not on file Insurance
--- OUTSIDE RECORDS SUMMARY | 2025-10-06 08:58 | XMS_ITS | CCD ---
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 Name Role Phone PROVIDER, UNKNOWN Admitting Unavailable [...] Consulting Unavailable EMILIA, DR CHACON Attending Unavailable ADACHRISTIANO CrockerKYLE Consulting Unavailable SHARPJESSICALYLA Consulting Unavailable GEMBUSRONITEL Consulting [...] Primary Care Unavailable INES OJEDA Attending Unavailable EMELI, INES Admitting Unavailable EMELI, INES Consulting Unavailable ZIVELVET, DR ILENE Myers Consulting Unavailable KUNBere, DR DUNN Primary Care Unavailable CRYSTAL, DR MANJARREZ Attending Unavailable HAY, DR MANJARREZ Admitting Unavailable GRECHRYAN, JUANJO VELOZ Consulting Unavailable HAY, DR MANJARREZ Consulting Unavailable TRACI, DR DUNN Attending Unavailable KUNBere, DR DUNN Admitting Unavailable [place], DR MELINDA Blake Consulting Unavailable KUNS, DR [...] Unavailable ZIEBER, DR ILENE Myers Consulting Unavailable Traci, DO Dunn Primary Care Provider DO Denys Pearson Attending Provider DO Shaun Aviles Primary Care Provider [phone] DO Denys Pearson Attending Provider DO Shaun Aviles Attending Provider Rell Marinelli Unavailable Janak Stanton Unavailable Mirna Mcmullen Attending Unavailable DO Shaun Aviles Primary Care Provider DO Shaun Aviles Attending Provider DO Shaun Aviles Primary Care Provider DO Shaun Aviles Attending Provider ERIKA Stanton Attending Provider MD Willie Lambert Attending Provider Willie Lambert Unavailable DO Shaun Aviles Primary Care Provider [phone] MD Gail Lawrence Attending Provider [phone] Kuns, DO Shaun Attending Provider Kuns, DO Shaun Primary Care Provider Shaun Aviles MD Primary Care Provider Kuns, DO Shaun Primary Care Provider MD Willie Lambert Attending Provider Kuns, DO Shaun Attending Provider [phone] Kuns DO, Shaun Primary Care Provider Willie Lambert MD Attending Provider [phone] Traci DO, Shaun Attending Provider GHANSHYAM NIETO Attending Unavailable CASSANDRA GONZALEZ Attending Unavailable Kuns DO, Shaun Primary Care Provider [phone] Shaun Aviles DO Attending Provider Aaron Cervantes DO Attending Provider [phone] Janak Stanton APRN Attending Provider Nicoláss DO, Shaun Primary Care Provider Nicoláss DO, Shaun Attending Provider Kuns, Shaun Admitting Unavailable Kuns, Shaun Primary Care Unavailable Kuns, Shaun Attending Unavailable Kuns, Shaun Primary Care Unavailable Kuns, Shaun Attending Unavailable Kuns, Shaun Admitting Unavailable Kuns, Shaun Primary Care Unavailable Janak Stanton Admitting Unavailable Janak Stanton Attending Unavailable Kuns, Shaun Primary Care Unavailable Kuns, Shaun Attending Unavailable Kuns, Shaun Admitting Unavailable Willie Lambert Admitting Unavailable Willie Lambert Attending Unavailable Kuns, Shaun Primary Care Unavailable Kuns, Shaun Admitting Unavailable Kuns, Shaun Primary Care Unavailable Kuns, Shaun Attending Unavailable Kuns DO, Shaun Primary Care Provider Shaun Aviles DO Attending Provider [phone] Pastor Rivera DO Attending Provider JANAK PAREDES Attending Unavailable Allergies Allergy ClassificationReported Allergen(s)Allergy TypeDate of OnsetReaction(s) FacilityLatex (1 source)LatexSubstance Hsxaldm91-74-5852PmwgDwvjnbexaPark[facility] NSAIDs (1 source)IbuprofenDrug Rorfejx04-52-2149Gtifhfhh, tongue soresSt. Vincent HospitalQuinolones (antibiotic) (1 source)CiprofloxacinDrug Gojmtmz81-56-5778oexhvkqiejYjygivsgkBlanchard Valley Health System Bluffton Hospitalulfonamides (antibiotic) (2 sources)SulfacetamideDrug Atigbic56-62-6595noxpxLmklnatgmSt. Vincent Hospital (20 sources)Ibuprofen; Translations: [IBUPROFEN]Drug Oxbmpyt45-72-4007Xjswc, Unknown, OtherThe [facility] (20 sources)Latex; Translations: [LATEX]Propensity to adverse reactions to drug (disorder)21-89-6429FltoGmw [facility] (7 sources)Sulfonamides (Antibiotic); Translations: [SULFA ANTIBIOTICS] Propensity to adverse reactions to drug (disorder)60-65-3160Nmncs, UnknownThe [facility] (20 sources)SulfacetamideDrug Pxjhkkv21-02-8035tpzyv, UnknownSt. Vincent Hospital (20 sources)Sulfonamides (Antibiotic); Translations: [Sulfa (Sulfonamide Antibiotics)]Allergy to aanlphgih48-33-8289Qxjelyi Reaction, [facility]ivMagruder Hospital (2 sources)Adhesive agentDrug allergy (disorder)[facility] (3 sources)Ibuprofen; Translations: [Motrin]Drug AllergyThe [facility] (2 sources)Sulfonamides (Antibiotic)Drug allergy (disorder)[facility] (2 sources)Sulfonamides (Antibiotic); Translations: [sulfa drugs]Drug allergy Urticaria (disorder)[facility] (20 sources)Ciprofloxacin; Translations: [CIPROFLOXACIN]Drug Farcpju38-13-9019 phsHighland District HospitalComment on above:Onset Date: 07/23/2023 (1 source)CiprofloxacinDrug Pwqpkek04-24-9052CkiwyhpglSt. Vincent Hospital Repository Medications Current Medications MedicationDrug Class(es)DatesSig (Normalized)Sig (Original)acetaminophen 325 mg / oxyCODONE hydrochloride 5 mg oral tablet (1 source)Opioid AgonistStart: 49-00-6306Jtvvpwwg 5 mg-325 mg oral tablet 1 tab(s), Oral, q6hr, 5 tab(s), Refill(s) 0 Start Date: 07/01/23 Status: Ordered ALPRAZolam 1 mg oral tablet (20 sources)BenzodiazepineStart: 08-21-2023 End: 02-74-2044Ppbblprckb (Xanax) 1 mg tablet Active 1 MG PO .prn as needed for Anxiety July 31, 2024 1:01pm Complies with drug therapyStart: 07-26-2023 take 1 tablet by mouth once daily as neededXanax 1 MG 1 tablet Orally once a day PRN for medical/dental procedures PRN Jul, ActiveStart: 83-39-1419hpmu 1 tablet by mouth once daily as neededXanax 1 MG 1 tablet Orally once a day PRN for medical/dental procedures PRN Aug, ActiveStart: 04-28-2022 End: 11-42-2056tkmx 1 tablet by mouth three times daily as needed for anxiety Xanax 0.5 mg Tab 0.5 mg = 1 tab(s), Oral, TID, PRN for anxiety, X 3 day(s), # 12 tab(s), Refills(s)0, Pharmacy: [id number], 160, cm, 04/28/22 16:08:00 EDT, Height/Length Dosing, 63, kg, 04/28/22 16:08:00 EDT, Weight Dosing Start Date: 04/28/22 Stop Date: 05/01/22 Status: OrderedStart: 13-98-2894vghy 1 tablet by mouth once daily as neededXanax 0.5 MG 1 tablet Orally once a day PRN PRN Dec, ActiveStart: 16-88-1448pppr 1 tablet by mouth once daily as needed Xanax 0.5 MG 1 tablet Orally once a day PRN PRN Nov, ActiveStart: 06-94-6809mmja 1 tablet by mouth once daily as neededXanax 0.5 MG 1 tablet Orally once a day PRN 20 Dec, 2021 Activeamoxicillin 875 mg oral tablet (2 sources)Penicillin-class AntibacterialStart: 07-10-2024 End: 64-90-1002xgel 1 tablet by mouth in the morningamoxicillin (Amoxil) 875 MG tablet Indications: Dental infection Take 1 tablet (875 mg) by mouth inthe morning and 1 tablet (875 mg) before bedtime. Do all this for 10 days. 20 tablet 07/10/2024 07/20/2024 Active{21 (desogestrel 0.15 MG / ethinyl estradiol 0.03 MG Oral Tablet) / 7 (inert ingredients 1 MG Oral Tablet) } Pack [Apr] (4 sources)Progestin, Estrogentake 1 tablet by mouth every twenty-four hoursApri 0.15-30 MG-MCG 1 tablet Orally Once a day ActivehydrOXYzine hydrochloride 50 mg oral tablet (10 sources)AntihistamineStart: 21-03-2548tfoa 1 tablet by mouth once daily at bedtimeHydroxyzine Hcl 50 mg tablet Active 50 MG PO Daily at bedtime March 16, 2025 12:00am Complies with drug therapylumateperone 42 mg oral capsule (20 sources)Start: 33-87-5187amzt 1 capsule by mouth once daily at bedtime Lumateperone (Caplyta) 42 mg capsule Active 42 MG PO Daily at bedtime August 21, 2023 1:00am Complies with drug therapyLumateperone Tosylate (CAPLYTA PO) (6 sources)Lumateperone Tosylate (CAPLYTA PO) Caplyta ActiveLumateperone Tosylate (Caplyta) 10.5 MG capsule (6 sources)Lumateperone Tosylate (Caplyta) 10.5 MG capsule Caplyta ActiveMaca Root 500 MG (5 sources)Lili Root 500 MG as directed Orally ActivemetFORMIN hydrochloride 500 mg oral tablet (6 sources)Biguanidetake 1 tablet by mouth every twenty-four hoursmetFORMIN HCl 500 MG 1 tablet with a meal Orally Once a day Activemirtazapine 45 mg oral tablet (20 sources)Start: 45-03-5870Quzpwgpmsie 45 mg tablet Active 45 MG PO August 26, 2024 1:00am Complies with drug therapyStart: 01-25-2024 End: 50-03-2274lgvz 1 tablet by mouth once dailyMirtazapine (Remeron) 15 mg tablet Discontinued 15 MG PO Daily January 25, 2024 12:00am August 26, 2024 2:44pmStart: 01-25-2024 End: 79-68-6931kqul 1 tablet by mouth once dailyMirtazapine (Remeron) 30 mg tablet Discontinued 30 MG PO Daily January 25, 2024 12:00am August 26, 2024 2:44pmStart: 08-02-2023 End: 44-96-5493cmtz 1 tablet by mouth once daily at bedtimeMirtazapine 45 mg tablet Discontinued 45 MG PO Daily at bedtime August 21, 2023 1:00am January 25, 2024 12:23pmtake 1 tablet by mouth every twenty-four hoursRemeron 15 MG 1 tablet Orally Once a day along with a 30 mg Activetake 1 tablet by mouth every twenty-four hoursRemeron 30 MG 1 tablet Orally Once a day along with a 15 mg Activeondansetron 4 mg disintegrating oral tablet (20 sources)Serotonin-3 Receptor AntagonistStart: 59-25-7904tdia 1 tablet by mouth every six hours as needed for nausea and vomitingOndansetron 4 mg tablet,disintegrating Active 4 MG PO Every 6 hours as needed for nausea and vomiting 28 10December 06, 2023 1:00am Complies with drug therapytake 1 tablet by mouth three times daily as needed for nauseaOndansetron 4 MG 1 tablet on the tongue and allow to dissolve Orally Three times a day as needed for nausea Activepotassium chloride 20 meq extended release oral tablet (8 sources)Start: 52-55-6542tiht 1 tablet by mouth once dailyPotassium Chloride 20 mEq tablet extended release Active 20 MEQ PO Daily 30 30 0 May 04, 2025 12:00am Complies with drug therapypredniSONE 10 mg oral tablet (2 sources)Start: 07-10-2024 End: 78-17-2419ejlo 1 tablet by mouth three times daily, then take 1 tablet by mouth twice daily, then take 1 tablet by mouth once dailypredniSONE (Deltasone) 10 MG tablet Indications: Dental infection Take 1 tablet (10 mg) by mouth 3 ( three) times a day for 3 days, THEN 1 tablet (10 mg) 2 (two) times a day for 3 days, THEN 1 tablet (10 mg) Daily for 3 days. 18 tablet 07/10/2024 07/18/2024 Xzldtj90 hr propranolol hydrochloride 60 mg extended release oral capsule (1 source)beta-Adrenergic BlockerStart: 05-11-6233xidc 1 capsule by mouth once dailyPropranolol 60 mg capsule,extended release 24 hr Active 60 MG PO Daily 30 August 05, 2025 12:00am Complies with drug therapyubrogepant 100 mg oral tablet (6 sources)Start: 06-16-2025 End: 44-00-8468fyis 1 tablet by mouth once daily as needed for headache Ubrogepant (Ubrelvy) 100 mg tablet Active 100 MG PO Daily as needed for migraine headache 16 July 07, 2025 12:00am Complies with drug therapyZofran ODT 4 mg Tab-Dis (1 source)Start: 39-82-9052yici 1 tablet by mouth every eight hoursZofran ODT 4 mg Tab-Dis 4 mg = 1 tab(s), Oral, q8hr, # 10 tab(s), Refills(s) 0, Pharmacy: [id number], 160, cm, 07/01/23 17:58:00 EDT, Height/Length Dosing, 70.2, kg, 07/01/23 17:58:00 EDT, Weight Dosing Start Date: 07/01/23 Status: Ordered Completed/Discontinued Medications MedicationDrug Class(es)DatesSig (Normalized)Sig (Original)acetaminophen 300 mg / codeine phosphate 30 mg oral tablet (6 sources)Opioid AgonistStart: 61-34-8798pfop 1 tablet by mouth every six hours Acetaminophen-Codeine #3 300-30 MG 1 tablet as needed Orally every 6 hrs Mar, Not-Takingamoxicillin 875 mg / clavulanate 125 mg oral tablet (10 sources)Penicillin-class AntibacterialStart: 03-16-2025 End: 68-18-1953bpei 1 tablet by mouth twice dailyAmoxicillin-Pot Clavulanate 875-125 mg tablet Discontinued 1 TAB PO Twice daily 20 10 0 March 16, 2025 12:00am May 12, 2025 2:01pmbenzoyl peroxide 0.05 mg/mg / clindamycin phosphate 0.012 mg/mg topical gel (5 sources)Lincosamide AntibacterialStart: 04-18-2023 End: 93-18-8827sfjbdssoazv-benzoyl peroxide (Duac) 1.2-5% gel Apply a pea size amount to face, extremities, and trunk once daily 04/18/2023 01/05/2025 Discontinuedbiotin 10 mg oral capsule (19 sources)Start: 01-29-2024 End: 25-32-7564dmvs 2 capsules by mouth once dailyBiotin 10,000 mcg capsule Discontinued 74359 MCG PO Daily January 29, 2024 12:00am November 11, 2024 2:57pmStart: 99-73-9836wmcb 40081 ug by mouth once dailyBiotin Active 72901 MCG PO Daily January 29, 2024 12:00amdicyclomine hydrochloride 20 mg oral tablet (20 sources)AnticholinergicStart: 01-25-2024 End: 90-33-8743htbk 1 tablet by mouth three times dailyDicyclomine 20 mg tablet Discontinued 1 TAB PO Three times daily January 25, 2024 12:00am 2023 1:35pm FreeTextSi tablet Orally Three times a day; Note: Source Status: Start; Refills: 11; Provider: Romy Calhoun MStart: 87-11-1118vocw 1 tablet by mouth every eight hoursDicyclomine HCl 20 MG 1 tablet Orally Three times a day for 30 days Oct, Activedoxycycline hyclate 100 mg oral tablet (6 sources)Tetracycline-class DrugStart: 05-22-2025 End: 38-83-6969tkyz 2 tablets by mouth once dailyDoxycycline Hyclate 100 mg tablet Discontinued 200 MG PO Daily 2 0 May 22, 2025 12:00am June 16, 2025 1:00pm Tick bite take two tablets onceeletriptan 40 mg oral tablet (20 sources)Serotonin-1b and Serotonin-1d Receptor AgonistStart: 06-16-2025 End: 78-57-1084ouju 1 tablet by mouth once as needed for headacheEletriptan (Relpax) 40 mg tablet Discontinued 40 MG PO Once as needed for migraine headache 12 2 June 16, 2025 1:54pm August 05, 2025 9:06amStart: 03-16-2025 End: 20-96-3421xdjk 1 tablet by mouth every two hoursEletriptan (Relpax) 40 mg tablet Discontinued 0 PO .COMPLEX 9 3 March 16, 2025 12:00am June 16, 2025 1:00pm take 1 tab at onset of headache; if no relief, may repeat 1 tab after at least 2 hrs;max = 2 tabs/24 hrs POethinyl estradiol 0.03 mg / norethindrone acetate 1.5 mg oral tablet (11 sources)Estrogentake 1 tablet by mouth every twenty-four hoursLarin 1.5/30 1.5-30 MG-MCG 1 tablet Orally Once a day Not-Takingfluconazole 150 mg oral tablet (11 sources)Azole AntifungalStart: 12-23-2024 End: 67-52-5754Nkajvvvqgvd 150 mg tablet Discontinued 150 MG PO Q3D as needed for yeast 5 0 December 23, 2024 12:00am June 16, 2025 1:01pmISOtretinoin 20 mg oral capsule (19 sources)RetinoidStart: 01-29-2024 End: 06-56-8642qgzh 1 capsule by mouth once dailyIsotretinoin (Accutane) 20 mg capsule Discontinued PO Daily January 29, 2024 12:00am June 1:35pm lamoTRIgine 25 mg oral tablet (19 sources)Mood Stabilizer, Anti-epileptic AgentStart: 08-26-2024 End: 30-33-8902Gergclrdcty 25 mg tablet Discontinued 50 MG PO August 26, 2024 1:00am March 16, 2025 12:37pmtake 1 tablet by mouth once daily at bedtime LaMICtal 25 MG 1 tablets Orally QHS Not-TakingMagnesium glycinate (2 sources)Start: 07-14-2025 End: 51-77-4392ppbagrxao glycinate Discontinued PO July 14, 2025 12:00am August 05, 2025 9:06am every couple of daysStart: 08-75-0667vnhkzpdlui 40 mg delayed release oral capsule (20 sources)Proton Pump InhibitorStart: 07-01-2024 End: 66-56-2021Uzwxplcokx 40 mg capsule,delayed release(DR/EC) Discontinued 40 MG PO Daily July 31, 2024 1:09pm July 14, 2025 2:25pm Take 1 capsule orally 30 minutes before morning meal.pantoprazole 40 mg delayed release oral tablet (20 sources)Proton Pump InhibitorStart: 04-15-2024 End: 76-92-7939nbcz 1 tablet by mouth once dailyPantoprazole 40 mg tablet,delayed release (DR/EC) Discontinued 40 MG PO Daily 30 3 April 15, 2024 12:00am July 01, 2024 2:19pmSUMAtriptan 100 mg oral tablet (20 sources)Serotonin-1b and Serotonin-1d Receptor AgonistStart: 12-23-2024 End: 17-83-2986rczm 1 tablet by mouth every two hoursSumatriptan Succinate 100 mg tablet Discontinued 0 PO .COMPLEX 9 December 23, 2024 12:00am March 16, 2025 12:59pm take 1 tab at onset of headache; if no relief, may repeat 1 tab after at least 2 hrs; max = 2 tabs/24 hrs POStart: 08-26-2024 End: 73-76-5045wver 1 tablet by mouth every two hoursSumatriptan Succinate 50 mg tablet Discontinued 0 PO .COMPLEX 9 0 August 26, 2024 1:00am December 23, 2024 12:46pm take 1 tab at onset of headache; if no relief may repeat 1 tab after at least 2 hrs; max = 4 tabs/24 hr POtiZANidine 4 mg oral tablet (6 sources)Central alpha-2 Adrenergic AgonistStart: 91-56-3863Bmjwmghr 4 MG 1-2 tablet as needed Orally at bedtime Mar, Not-Takingtopiramate 50 mg oral tablet (19 sources)Start: 01-29-2024 End: 71-19-8479sopr 1 tablet by mouth twice dailyTopiramate (Topamax) 50 mg tablet Discontinued 50 MG PO Twice daily January 29, 2024 12:00am April 15, 2024 2:06pmToradol 30 mg/ml (20 sources)Start: 13-06-5090Ecmxe: 82-98-1112Yvnzlzz 30 mg/ml Mar, 60 mgStart: 13-84-6155Cfqtc: 76-18-2899Jqifudu 30 mg/ml Mar, 60 mg Problems Active Problems Problem ClassificationProblemDateDocumented DateEpisodic/ChronicAbdominal pain (20 sources)Pelvic and perineal pain; Translations: [Pelvic and perineal pain] Onset: 62-00-7967BkoahrplMixyvga disorders (20 sources)Mixed anxiety and depressive disorder; Translations: [Other specified anxiety disorders]Onset: 09-26-2021 Resolved: 24-14-9065NirweyoMttmdoxgzbo and hemorrhagic disorders (14 sources)Finding related to bruising; Translations: [Spontaneous ecchymoses] Onset: 293087-82-1936YpqzwpuhDpabhjtccgwsu and procreative management (2 sources)Tubal ligation status; Translations: [Encounter for sterilization] Onset: 20-31-6751PangfiflTndcuvdfmd and other anemia (20 sources)Anemia; Translations: [Anemia, unspecified]EpisodicDisorders of lipid metabolism (20 sources)Hyperlipidemia; Translations: [Hyperlipidemia, unspecified]Onset: 693311-85-6324CwcinmjMhzzcuzdu of teeth and jaw (2 sources)Infection of tooth; Translations: [Periapical abscess without sinus] 60-51-9370TiaufpahWowmnnadrz disorders (20 sources)Gastroesophageal reflux disease; Translations: [Gastro-esophageal reflux disease without esophagitis]15-25-9888LazdaviKgckllfyrlxdjaag hemorrhage (8 sources)Rectal hemorrhage; Translations: [Hemorrhage of anus and rectum] EpisodicHeadache; including migraine (15 sources)Migraine; Translations: [Migraine, unspecified, not intractable, without status migrainosus]19-39-6085MtqcygzTxthlgoo; including migraine (20 sources)Frequent headache; Translations: [Frequent headaches]08-26-2024 EpisodicHeadache; including migraine (1 source)Headache; including migraine; Translations: [Headache, unspecified] Onset: 68-83-8728Ybuxpiypuxv (20 sources)Hemorrhoids; Translations: [Unspecified hemorrhoids]04-15-2024 EpisodicIntestinal infection (1 source)Clostridium difficile zhofgwrc51-15-4585IyibpwioCzfmayu on above: Problem added secondary to documenting Active C-Diff.Lymphadenitis (16 sources)Lymphadenopathy; Translations: [Enlarged lymph nodes, unspecified] Onset: 807874-87-5876PjbhsshkHyhnyhpko disorders (6 sources)Excessive and frequent menstruation with irregular cycle; Translations: [Dysmenorrhea, unspecified]Onset: 81-28-3563BrsceriQmhz disorders (2 sources)Major depressive disorder, single episode, unspecified; Translations: [Major depressive disorder, recurrent, moderate]Onset: 46-51-3405LhvwlmrNlqpyjv (2 sources)Candidiasis of vagina; Translations: [Vaginal yeast infection] 67-17-1137YrzpgxcyMbaxnz and vomiting (20 sources)Nausea; Translations: [Nausea]Onset: 328533-26-3199Xwrefrnv Nonmalignant breast conditions (20 sources)Discharge from nipple; Translations: [Nipple discharge]Onset: 11-07-2021 Resolved: 06-59-1055PzefhfdqUmqknrckyyu deficiencies (20 sources)Vitamin D deficiency; Translations: [Vitamin D deficiency, unspecified]Onset: 11-07-2021 Resolved: 14-64-7609BqgclwdYkerh aftercare (1 source)Other fdc (current) drug therapy; Translations: [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]Onset: 06-21-4582EsrronbiEpdzj and unspecified benign neoplasm (18 sources)Benign neoplasm of left breast; Translations: [Benign neoplasm of breast]EpisodicOther and unspecified benign neoplasm (4 sources)Fibroadenoma of breast; Translations: [Benign neoplasm of left breast]71-89-2301XkuuejgtMcdrb disorders of stomach and duodenum (15 sources)Gastroparesis syndrome; Translations: [Gastroparesis]05-27-2025 EpisodicOther gastrointestinal disorders (19 sources)Irritable bowel syndrome with diarrhea; Translations: [Irritable bowel syndrome with diarrhea]20-93-0383QukmxnlDoxod gastrointestinal disorders (19 sources)Irritable bowel syndrome; Translations: [Irritable bowel syndrome without diarrhea]11-21-6377XypdygsAfsae gastrointestinal disorders (12 sources)Irritable bowel syndrome with diarrhea; Translations: [Irritable bowel syndrome]69-17-6060AainonzEbmzy gastrointestinal disorders (5 sources)Constipation alternates with diarrhea; Translations: [Other specified symptoms and signs involving the digestive system and abdomen]EpisodicOther gastrointestinal disorders (3 sources)Other specified symptoms and signs involving the digestive system and abdomenEpisodicOther gastrointestinal disorders (1 source)HeartburnEpisodicOther gastrointestinal disorders (20 sources)Dysphagia; Translations: [Dysphagia, unspecified]79-82-4208Qkywwmjw Other gastrointestinal disorders (9 sources)Dysphagia, unspecified; Translations: [Dysphagia, unspecified] 35-17-4735BneerdhhFzmcw gastrointestinal disorders (1 source)Abdominal distension (gaseous); Translations: [Abdominal distension (gaseous)]Onset: 69-27-2405RkkncdvkUuowb gastrointestinal disorders (2 sources)Diarrhea; Translations: [Diarrhea, unspecified]75-38-6750Zzekfqzd Other lower respiratory disease (9 sources)Cough; Translations: [Cough]EpisodicOther lower respiratory disease (8 sources)Breathing painful; Translations: [Pleurodynia]EpisodicOther nervous system disorders (20 sources)Chronic pain; Translations: [Other chronic pain]93-58-6208Hlxnvuy Other nervous system disorders (1 source)Other chronic painChronicOther nervous system disorders (17 sources)Paresthesia of hand ; Translations: [Paresthesia of skin]Episodic Other nervous system disorders (4 sources)Other acute postprocedural pain; Translations: [OTHER ACUTE POSTPROCEDURAL PAIN]Onset: 88-51-8614CgodosjkQzkpc nutritional; endocrine; and metabolic disorders (8 sources)Weight loss; Translations: [Abnormal weight loss]EpisodicOther screening for suspected conditions (not mental disorders or infectious disease) (20 sources)Mammography abnormal; Translations: [Other abnormal and inconclusive findings on diagnostic imagingof breast]Onset: 09-26-2021 Resolved: 97-26-0150IenxqwyuDyefq skin disorders (20 sources)Acne; Translations: [Acne, unspecified]02-91-2431HsbmaasaTkqmi skin disorders (1 source)Acne, unspecifiedEpisodicOther upper respiratory infections (15 sources)Upper respiratory infection; Translations: [Acute upper respiratory infection, unspecified]EpisodicPersonality disorders (20 sources)Borderline personality disorder; Translations: [Borderline personality disorder]Onset: 01-19-2022 Resolved: 89-02-2554AnjnzisJcpkalhsd; thrombophlebitis and thromboembolism (5 sources)Acute embolism and thrombosis of other specified veins; Translations: [ACUTE EMBO THROMB OTH SPEC VEINS]Onset: 28-82-9645JjqxlyjoOspcfcbq codes; unclassified (20 sources)Insomnia; Translations: [Insomnia, unspecified]80-29-4145Llgrgasu Residual codes; unclassified (20 sources)Verbal auditory hallucinations; Translations: [Auditory hallucinations]EpisodicResidual codes; unclassified (1 source)Other specified postprocedural states; Translations: [OTH SPECIFIED POSTPROCEDURAL STATES]Onset: 87-06-5423RtyzheypMkobaohw codes; unclassified (19 sources)Difficulty sleeping ; Translations: [Sleep disorder, unspecified] 36-41-9011IhczvpxvUiiwvaoa codes; unclassified (2 sources)Sleep disorder, unspecified; Translations: [Sleep disturbance, unspecified]57-57-0727NycowbktAqqxotkvafnzv and other psychotic disorders (20 sources)Schizophrenia; Translations: [Schizophrenia, unspecified]Onset: 59-02-2531CycsjhdHcxasccqmhfbu and other psychotic disorders (2 sources)Schizophrenia and other psychotic disordersSpondylosis; intervertebral disc disorders; other back problems (20 sources)Neck pain; Translations: [Cervicalgia]Onset: 03-28-2022 Resolved: 88-57-6332VwunzjltTutzcggqu-related disorders (16 sources)Smoker; Translations: [Nicotine dependence]11-59-2812EjuncgcJuefakg on above:Added secondary to documentation in Social History.Unclassified (1 source)CONTACT W/AND (SUSP) EXPOS COVID-19; Translations: [CONTACT W/AND (SUSP) EXPOS COVID-19]Onset: 20-76-4295Nygrziwebpyj (1 source)Pyuria; Translations: [PYURIA]Onset: 07-03-2022 Past or Other Problems Problem ClassificationProblemDateDocumented DateEpisodic/ChronicDeficiency and other anemia (3 sources)Anemia, unspecified; Translations: [ANEMIA UNSPECIFIED]Onset: 09-26-2021 Resolved: 97-95-8721UzuzbwufStmqu and electrolyte disorders (2 sources)Dehydration; Translations: [Hypokalemia]Onset: 25-08-1268Ayduqmxo Immunizations and screening for infectious disease (6 sources)Encounter for screening for infections with a predominantly sexual mode of transmission; Translations: [Encounter for screening for human papillomavirus (HPV)]Onset: 46-12-4722LvhvatekBbkce aftercare (6 sources)Patient encounter status; Translations: [Encounter for follow-up examination after completed treatment for conditions other than malignant neoplasm]Onset: 061589-56-9856OoswoehtKygit bone disease and musculoskeletal deformities (1 source)Segmental and somatic dysfunction of cervical regionOnset: 03-28-2022 Resolved: 34-27-4845IbmangofHyptg bone disease and musculoskeletal deformities (1 source)Segmental and somatic dysfunction of thoracic regionOnset: 03-28-2022 Resolved: 62-74-3847OrvrtxclBmkrg bone disease and musculoskeletal deformities (1 source)Segmental and somatic dysfunction of rib cageOnset: 03-28-2022 Resolved: 20-08-6344ExthgphzVvyno female genital disorders (5 sources)Other specified noninflammatory disorders of vagina; Translations: [OTH SPEC NONINFLAMMATORY D/O VAGINA]Onset: 60-49-6344AaibkzwzOmodx gastrointestinal disorders (4 sources)Diarrhea, unspecified; Translations: [DIARRHEA UNSPECIFIED]Onset: 74-96-8366RngnkwaaTkouc infections; including parasitic (1 source)Personal history of other infectious and parasitic diseasesOnset: 12-15-2021 Resolved: 05-62-2775AqvdpyesMchnb lower respiratory disease (3 sources)Pleurodynia; Translations: [PLEURODYNIA]Onset: 11-07-2021 Resolved: 14-65-0403ZxalyapoPufxw nervous system disorders (1 source)Paresthesia of skinOnset: 03-28-2022 Resolved: 11-08-1501ItorzwtjUkpbl nutritional; endocrine; and metabolic disorders (3 sources)Abnormal weight loss; Translations: [ABNORMAL WEIGHT LOSS]Onset: 09-26-2021 Resolved: 73-88-7312VivtynvqEjzlyedq codes; unclassified (4 sources)Insomnia, unspecifiedOnset: 09-26-2021 Resolved: 37-44-9391NvwavoauMdiegxow codes; unclassified (2 sources)Auditory hallucinationsOnset: 09-26-2021 Resolved: 33-94-3171YegmmrjgQxodsbxtbiia (1 source)Other low back pain M54.59 Results Test NameValueInterpretationReference RangeFacilityAlanine aminotransferase [Enzymatic activity/volume] in Serum or PlasmaOrdered By: Shaun Aviles on 73-67-2131UIH [Catalytic activity/Vol]11 U/L7-52St. [facility] HospitalComment on above:Performed By: #### PP, CBC, TSH3, MG, CMP, LIPID ####[address] [place] [address] USAAlbumin [Mass/volume] in Serum or Plasma by Bromocresol green (BCG) dye binding metho Ordered By: Shaun Aviles on 90-09-0347Sfupupu BCG dye [Mass/Vol]4.2 g/dL3.5-5.7 [facility] Vincent HospitalAlkaline phosphatase [Enzymatic activity/volume] in Serum or PlasmaOrdered By: Shaun Aviles on 85-53-4960LGB [Catalytic activity/Vol]97 U/J72-232MzidigoggSt. Vincent HospitalComment on above:Performed By: #### PP, CBC, TSH3, MG, CMP, LIPID ####[address] [place] [address] USAAspartate aminotransferase [Enzymatic activity/volume] in Serum or PlasmaOrdered By: Shaun Aviles on 32-67-7678XKT [Catalytic activity/Vol]18 U/E94-51OvwjsovkeSt. Vincent HospitalComment on above:Performed By: #### PP, CBC, TSH3, MG, CMP, LIPID ####[address] [address] [place] Basophils [#/volume] in Blood by Automated countOrdered By: Shaun Aviles on 83-18-7367Sbsdupulb (Bld) [#/Vol]0.0 10*3/uL0.0-0.2FMercy Health Springfield Regional Medical CenterComment on above:Result Comment: PERFORMED BY: [facility] [id number] PATHOLOGIST [employer] OTF ANTONY M.D.Performed By: #### PP, CBC, TSH3, MG, CMP, LIPID ####[id number] [place] Basophils/100 leukocytes in Blood by Automated countOrdered By: Shaun Aviles on 37-43-1034Dnkbayzyr/100 WBC (Bld)0.2 %.St. [facility] HospitalComment on above:Performed By: #### PP, CBC, TSH3, MG, CMP, LIPID ####[id number] USABilirubin.total [Mass/volume] in Serum or PlasmaOrdered By: Shaun Aviles on 39-47-2076Dqcgvmzui [Mass/Vol]0.3 mg/dL0.3-1.0St. [facility] HospitalComment on above:Performed By: #### PP, CBC, TSH3, MG, CMP, LIPID ####[place] [address] USACalcium [Mass/volume] in Serum or PlasmaOrdered By: Shaun Aviles on 28-95-3712Yefygjf [Mass/Vol]9.2 mg/dL8.6-10.3FMercy Health Springfield Regional Medical CenterComment on above:Performed By: #### PP, CBC, TSH3, MG, CMP, LIPID ####[address] USACarbon dioxide, total [Moles/volume] in Serum or PlasmaOrdered By: Shaun Aviles on 83-23-2585QB9 [Moles/Vol]28.9 mmol/L21.0-31.0[facility] Comment on above:Performed By: #### PP, CBC, TSH3, MG, CMP, LIPID ####[id number] USAChloride [Moles/volume] in Serum or PlasmaOrdered By: Shaun Aviles on 79-21-3451Qpdqgboo [Moles/Vol]107 mmol/C60-297QsycrflblSt. Vincent HospitalComment on above: Performed By: #### PP, CBC, TSH3, MG, CMP, LIPID ####[address] [place] [address] USACholesterol [Mass/volume] in Serum or PlasmaOrdered By: Shaun Aviles on 74-63-2795Aaudglushkb [Mass/Vol]150 mg/vB793-128 [facility] HospitalComment on above:Chol less than 200 mg/dl low riskChol 201-239 mg/dl borderline riskChol 240 mg/dl and greater high riskResult Comment: Chol less than 200 mg/dl low risk Chol 201-239 mg/dl borderline risk Chol 240 mg/dl and greater high riskPerformed By: #### PP, CBC, TSH3, MG, CMP, LIPID ####[facility] [address] [place] [address] [place] Cholesterol in HDL [Mass/volume] in Serum or PlasmaOrdered By: Shaun Aviles on 81-80-6862Qhjbziqmvbu in HDL [Mass/Vol]44 mg/tP50-48SiphaplbvSt. Vincent HospitalComment on above:HDL CHOL ATP-III CLASSIFICATION Cardiovascular RiskHDL > or equal to 60 mg/dL LOWHDL < 40 mg/dL HIGHResult Comment: HDL CHOL ATP-III CLASSIFICATION Cardiovascular Risk HDL > or equal to 60 mg/dL LOW HDL < 40 mg/dL HIGHPerformed By: #### PP, CBC, TSH3, MG, CMP, LIPID ####[facility] [id number] [place] [address] [place] Cholesterol in LDL Calc [Mass/Vol]Ordered By: Shaun Aviles on 06-17-2025 Cholesterol in LDL [Mass/Vol]91 mg/dL0-100[facility] Comment on above:LDL ATP III CLASSIFICATIONLDL less than 100 mg/dL OptimalLDL 100-129 mg/dL Near or above mzuriscPSI814-056 mg/dL Borderline highLDL 160-189 mg/dL HighLDL greater than 189 mg/dL Very highCholesterol in VLDL Calc [Mass/Vol]Ordered By: Shaun Aviles on 42-23-8389Akxmvvdpbwf in VLDL [Mass/Vol]15 mg/dLSt. Vincent HospitalCoagulation Profileon 58-98-0078vSRJ Coag (Bld) [Time]31.9 xQzexfh23.1-36.5The [facility] Physician GroupComment on above: Result Comment: A hematocrit value greater than 55% may lead to inaccurate results in coagulation testing. Patients having hematocrit values >55% require a special collection tube for coagulation studies. Please contact the laboratory at [phone] for redraw instructions. PERFORMED BY: [facility] [address] [place] [id number] PATHOLOGIST [employer] IN[employer]ER OTF ANTONY M.D.Performed By: #### PP, CBC, TSH3, MG, CMP, LIPID ####[id number] [facility] Complete Blood Count Auto Diffon 68-21-0101Fxby Corpuscular HGB Conc33.7 g/dL Jujcql96.0-35.0The [facility] Physician GroupComment on above:Performed By: #### PP, CBC, TSH3, MG, CMP, LIPID ####[place] [address] USANRBC%0.1 /100{WBC}Normal0-0.5The [facility] Physician [facility] HospitalComment on above:Performed By: #### PP, CBC, TSH3, MG, CMP, LIPID ####[id number] [facility] M[facility]ICOWhite Blood Count7.3 [CFU]/mLNormal3.8-11.6The [facility] Physician [facility] HospitalComment on above:Performed By: #### PP, CBC, TSH3, MG, CMP, LIPID ####[id number] USAComprehensive Metabolic Panel on 66-67-4778Hausfhd [Mass/Vol]4.2 g/dLNormal3.5-5.7The [facility] Physician [facility] HospitalComment on above:Performed By: #### PP, CBC, TSH3, MG, CMP, LIPID ####[address] [place] GFR/1.73 sq M.predicted MDRD (S/P/Bld) [Vol rate/Area]mL/min/{1.73_m2}NormalThe [facility] Physician GroupComment on above:Performed By: #### PP, CBC, TSH3, MG, CMP, LIPID ####[place] [address] USACreatinine [Mass/volume] in Serum or PlasmaOrdered By: Shaun Aviles on 57-00-1012Gvmaguliye [Mass/Vol]0.73 mg/dL0.60-1.20St. [facility] HospitalComment on above:Performed By: #### PP, CBC, TSH3, MG, CMP, LIPID ####[place] [address] [place] Eosinophils [#/volume] in Blood by Automated countOrdered By: Shaun Aviles on 17-72-0139Qzefvucaglv (Bld) [#/Vol]0.0 10*3/uL0.0-0.45St. [facility] HospitalComment on above:Performed By: #### PP, CBC, TSH3, MG, CMP, LIPID ####[place] [address] [place] Eosinophils/100 leukocytes in Blood by Automated countOrdered By: Shaun Aviles on 87-24-4146Vtozefulwyv/100 WBC (Bld)0.0 %.[facility] Comment on above:Performed By: #### PP, CBC, TSH3, MG, CMP, LIPID ####[place] [address] USAErythrocyte distribution width [Ratio] by Automated countOrdered By: Shaun Aviles on 77-80-9322Pemxphvhkax distribution width (RBC) [Ratio]14.2 %11.9-15.3FMercy Health Springfield Regional Medical CenterComment on above:Performed By: #### PP, CBC, TSH3, MG, CMP, LIPID ####[place] [address] USAErythrocytes [#/volume] in Blood by Automated countOrdered By: Shaun Aviles on 64-12-2390IKE (Bld) [#/Vol]4.80 10*6/uL3.60-5.00[facility] Medical CenterComment on above:Performed By: #### PP, CBC, TSH3, MG, CMP, LIPID ####[id number] [facility] Glomerular filtration rate [Volume Rate/Area] in Serum, Plasma or Blood by CreatinineOrdered By: Shaun Aviles on 72-23-7491Dpmyfeqhgq filtration rate [Volume Rate/Area] in Serum, Plasma or Blood by Creatinine> 60.0 mL/MinSt. Vincent HospitalGlucose [Mass/volume] in Serum or PlasmaOrdered By: Shaun Aviles on 21-20-5532Lraoogv [Mass/Vol]88 mg/gY14-854RgoqihhdjSt. Vincent HospitalComment on above:ADA recommended reference rangeRandom Glucose Reference Range is dependent on time and content of last meal. Glucose of more than 200 mg/dL in a nonstressed, ambulatory subject supports the diagnosisof Diabetes Mellitus.Result Comment: Random Glucose Reference Range is dependent on time and content of last meal. Glucose of more than 200 mg/dL in a nonstressed, ambulatory subject supports the diagnosis of Diabetes Mellitus. ADA recommended reference rangePerformed By: #### PP, CBC, TSH3, MG, CMP, LIPID ####[address] [place] [id number] [facility] Hematocrit [Volume Fraction] of Blood by Automated countOrdered By: Shaun Aviles on 77-14-2573Aawhlbytdw (Bld) [Volume fraction]39.1 %34.0-46.4FMercy Health Springfield Regional Medical CenterComment on above:Performed By: #### PP, CBC, TSH3, MG, CMP, LIPID ####[address] [place] [id number] [facility] Hemoglobin [Mass/volume] in BloodOrdered By: Shaun Aviles on 98-74-1357Hlpvvxqzpx (Bld) [Mass/Vol]13.1 g/dL11.8-15.4FMercy Health Springfield Regional Medical CenterComment on above:Performed By: #### PP, CBC, TSH3, MG, CMP, LIPID ####[address] [place] [id number] USAINR in Platelet poor plasma by Coagulation assayOrdered By: Shaun Aviles on 59-45-0722UBD Coag (PPP) [Relative time]1.0 {INR}[facility]. [facility] HospitalComment on above:INR Therapeutic Range A) Pre- and Peroperative OAT started two weeks before surgery. NOT HIP SURGERY: 1.5 - 2.5 HIP SURGERY: 2 - 3B) Primary and secondary prevention of venous THROMBOSIS: 2 - 3C) Active venous thrombosis, pulmonary embolismand prevention of recurrent venous thrombosis: 2 - 3D) Prevention of arterial thromboembolismincluding patients with mechanical heart valves: 3 - 4.5Result Comment: INR Therapeutic Range A) Pre- and Peroperative OAT started two weeks before surgery. NOT HIP SURGERY: 1.5 - 2.5 HIP SURGERY: 2 - 3 B) Primary and secondary prevention of venous THROMBOSIS: 2 - 3 C) Active venous thrombosis, pulmonary embolism and prevention of recurrent venous thrombosis: 2 - 3 D) Prevention of arterial thromboembolism including patients with mechanical heart valves: 3 - 4.5Performed By: #### PP, CBC, TSH3, MG, CMP, LIPID ####[facility] [id number] [place] [address] USALeukocytes [#/volume] corrected for nucleated erythrocytes in Blood by Automated counOrdered By: Shaun Aviles on 69-07-1629KZW corrected for nucl RBC Auto (Bld) [#/Vol]7.3 10*3/uL3.8-11.6FMercy Health Springfield Regional [facility] Center Leukocytes [#/volume] in Blood by Automated countOrdered By: Shaun Aviles on 03-34-7942FYC (Bld) [#/Vol]7.3 10*3/uL3.8-11.6FMercy Health [facility] Regional [facility] Center Comment on above:Performed By: #### PP, CBC, TSH3, MG, CMP, LIPID ####[facility] [id number] [place] [id number] USALipid Panelon 02-85-2767WXA Cholesterol,Mdykikcgnb12 mg/dLNormal0-100The [facility] Physician GroupComment on above:Result Comment: LDL ATP III CLASSIFICATION LDL less than 100 mg/dL Optimal LDL 100-129 mg/dL Near or above optimal LDL 130-159 mg/dL Borderline high LDL 160-189 mg/dL High LDL greater than 189 mg/dL Very highPerformed By: #### PP, CBC, TSH3, MG, CMP, LIPID ####[address] [place] [id number] [facility] Triglyceride w/Mdjudr87 mg/dLNormal0-149The [facility] Physician GroupComment on above:Result Comment: TRIG ATP III CLASSIFICATION TRIG less than 150 mg/dL Normal TRIG 150-199 mg/dL Borderline high TRIG 200-500 mg/dL High TRIG greater than 500 mg/dL Very high Standard traceable to the Center for Disease Conrtrol and Prevention (CDC) test method.Performed By: #### PP, CBC, TSH3, MG, CMP, LIPID ####[place] [address] USAVLDL LKWGHFWEOIJ18 mg/dLNormalThe [facility] Physician GroupComment on above:Performed By: #### PP, CBC, TSH3, MG, CMP, LIPID ####[place] [address] USALymphocytes [#/volume] in Blood by Automated countOrdered By: Shaun Aviles on 03-80-2608Pkkjlhbcdwy (Bld) [#/Vol]1.9 10*3/uL 1.00-4.8St. [facility] HospitalComment on above:Performed By: #### PP, CBC, TSH3, MG, CMP, LIPID ####[place] [id number] USALymphocytes/100 leukocytes in Blood by Automated count Ordered By: Shaun Aviles on 98-97-4570Cqtvtsieetw/100 WBC (Bld)25.7 %.[facility]. [facility] HospitalComment on above:Performed By: #### PP, CBC, TSH3, MG, CMP, LIPID ####[place] [id number] [facility]H [Entitic mass] by Automated countOrdered By: Shaun Aviles on 17-13-6289YQR (RBC) [Entitic mass]27.4 pg24.7-34.3FMercy Health Springfield Regional Medical CenterComment on above:Performed By: #### PP, CBC, TSH3, MG, CMP, LIPID ####[address] [address] USAHC Auto (RBC) [Mass/Vol] Ordered By: Shaun Aviles on 11-54-7593YKJM (RBC) [Mass/Vol]33.7 g/dL32.0-35.0 [facility] HospitalMCV [Entitic volume] by Automated countOrdered By: Shaun Aviles on 10-01-1909XRU (RBC) [Entitic vol]81.4 iN29-783GnnpfwohsSt. Vincent HospitalComment on above:Performed By: #### PP, CBC, TSH3, MG, CMP, LIPID ####[place] [address] USAMagnesium [Mass/volume] in Serum or PlasmaOrdered By: Shaun Aviles on 60-24-3143Fwoskwwlr [Mass/Vol]2.1 mg/dL1.9-2.7FMercy Health Springfield Regional Medical Center Comment on above:Performed By: #### PP, CBC, TSH3, MG, CMP, LIPID ####[address] [address] USAMonocytes [#/volume] in Blood by Automated countOrdered By: Shaun Aviles on 56-30-8097Wywdffkfr (Bld) [#/Vol]0.4 10*3/uL0.0-0.8St. [facility] HospitalComment on above: Performed By: #### PP, CBC, TSH3, MG, CMP, LIPID ####[place] [id number] USAMonocytes/100 leukocytes in Blood by Automated countOrdered By: Shaun Aviles on 05-38-0557Aapyzcird/100 WBC (Bld)5.9 %. [facility] HospitalComment on above:Performed By: #### PP, CBC, TSH3, MG, CMP, LIPID ####[address] [address] USANeutrophils [#/volume] in Blood by Automated countOrdered By: Shaun Aviles on 54-59-2121Qfiacyfppfk (Bld) [#/Vol]5.0 10*3/uL1.8-7.7FMercy Health Springfield Regional Medical CenterComment on above:Performed By: #### PP, CBC, TSH3, MG, CMP, LIPID ####[facility] [place] [address] USANeutrophils/100 leukocytes in Blood by Automated countOrdered By: Shaun Aviles on 62-89-3542Rrkvpmpibrr/100 WBC (Bld)68.2 %.[facility] Comment on above:Performed By: #### PP, CBC, TSH3, MG, CMP, LIPID ####[address] [place] [address] USANo Panel Information Ordered By: Shaun Aviles on 33-16-0633Wwlitfbb Creatinine Clearance (ChemN/A St. Vincent HospitalNucleated erythrocytes [Presence] in Blood by Automated countOrdered By: Shaun Aviles on 53-68-3359Zhsotsvjh RBC Auto Ql (Bld) 0.1 /100{WBC}0-0.5FMercy Health Springfield Regional Medical CenterPlatelet mean volume [Entitic volume] in Blood by Automated countOrdered By: Shaun Aviles on 21-03-7092Ccsvbtfi mean volume (Bld) [Entitic vol]7.0 fL6.3-10.7FMercy Health Springfield Regional Medical Center Comment on above:Performed By: #### PP, CBC, TSH3, MG, CMP, LIPID ####[address] [place] [address] USAPlatelets [#/volume] in Blood by Automated countOrdered By: Shaun Aviles on 64-54-5170Tfstcxeqv (Bld) [#/Vol]253 10*3/dA007-910AbaefrxezSt. Vincent HospitalComment on above: Performed By: #### PP, CBC, TSH3, MG, CMP, LIPID ####[address] [address] USAPotassium [Moles/volume] in Serum or PlasmaOrdered By: Shaun Aviles on 09-59-7392Iluarhjtv [Moles/Vol]4.8 mmol/L3.5-5.1 [facility] HospitalComment on above:Performed By: #### PP, CBC, TSH3, MG, CMP, LIPID ####[address] [place] [address] USAProtein [Mass/volume] in Serum or PlasmaOrdered By: Shaun Aviles on 12-00-2430Uskqdhl [Mass/Vol]6.9 g/dL6.4-8.9St. [facility] HospitalCommymichigan medical center [facility] on above:Performed By: #### PP, CBC, TSH3, MG, CMP, LIPID ####[address] [place] [address] [facility] Prothrombin time (PT)Ordered By: Shaun Aviles on 21-26-9144YK Coag (PPP) [Time] 10.9 s9.0-12.9St. [facility] HospitalCommymichigan medical center sag[facility] on above:A hematocrit value greater than 55% may lead to inaccurate results in coagulation testing. Patientshaving hematocrit values >55% require a special collection tube for coagulation studies. Please contact the laboratory at [phone] for redraw instructions.Result Comment: A hematocrit value greater than 55% may lead to inaccurate results in coagulation testing. Patients having hematocrit values >55% require a special collection tube for coagulation studies. Please contact the laboratory at [phone] for redraw instructions.Performed By: #### PP, CBC, TSH3, MG, CMP, LIPID ####[address] [place] [address] USASerum globulin measurement by calculation (mass/volume)Ordered By: Shaun Aviles on 06-17-2025 Globulin (S) [Mass/Vol]2.7 g/dLSt. Vincent HospitalCommymichigan medical center [place] on above:Performed By: #### PP, CBC, TSH3, MG, CMP, LIPID ####[address] [address] USASerum or plasma albumin/globulin mass ratioOrdered By: Shaun Aviles on 66-87-6666Rlzkxsg/Globulin [Mass ratio]1.6 {ratio}[facility]. Vincent HospitalCommymichigan medical center [place] on above: Performed By: #### PP, CBC, TSH3, MG, CMP, LIPID ####[address] [address] USASerum or plasma anion gap determinationOrdered By: Shaun Aviles on 57-29-7194Gxcfp gap [Moles/Vol]9.9 mmol/L 6.0-15.0St. [facility] HospitalComment on above:Performed By: #### PP, CBC, TSH3, MG, CMP, LIPID ####[address] [address] USASerum or plasma total cholesterol/high density lipoprotein (HDL) cholesterol mass ratOrdered By: Shaun Aviles on 06-17-2025 Cholesterol.total/Cholesterol in HDL [Mass ratio]3.4 {ratio}<5.0St. [facility] HospitalComment on above:Performed By: #### PP, CBC, TSH3, MG, CMP, LIPID ####[place] [id number] USASodium [Moles/volume] in Serum or PlasmaOrdered By: Shaun Aviles on 06-17-2025 Sodium [Moles/Vol]141 mmol/C091-051NmvioxiooSt. Vincent HospitalComment on above:Performed By: #### PP, CBC, TSH3, MG, CMP, LIPID ####[address] [address] USAThyrotropin [Units/volume] in Serum or PlasmaOrdered By: Shaun Aviles on 86-87-2854JKU Qn0.97 m[IU]/L0.45-5.33 [facility] HospitalComment on above:Result Comment: PERFORMED BY: [facility] [address] [place] [address] PATHOLOGIST [employer] OTF ANTONY M.D.Performed By: #### PP, CBC, TSH3, MG, CMP, LIPID ####[address] [address] [place] Triglyceride [Mass/volume] in Serum or PlasmaOrdered By: Shuan Aviles on 53-61-9737Inxihixflmgt [Mass/Vol]76 mg/dL0-149[facility] Comment on above:TRIG ATP III CLASSIFICATIONTRIG less than 150 mg/dL NormalTRIG 150-199 mg/dL Borderline highTRIG 200-500 mg/dL High TRIG greater than 500 mg/dL Very highStandard traceable to the Center for Disease Conrtrol and Prevention (CDC) test method.Urea nitrogen [Mass/volume] in Serum or PlasmaOrdered By: Shaun Aviles on 66-47-8650Anrn nitrogen [Mass/Vol]9 mg/dL05-01St. [facility] HospitalComment on above:Performed By: #### PP, CBC, TSH3, MG, CMP, LIPID ####[facility] [id number] [place] [address] USAaPTT in Platelet poor plasma by Coagulation assayOrdered By: Shaun Aviles on 06-17-2025 aPTT Coag (PPP) [Time]31.9 s25.1-36.5FMercy Health Springfield Regional Medical CenterComment on above:A hematocrit value greater than 55% may lead to inaccurate results in coagulation testing. Patientshaving hematocrit values >55% require a special collection tube for coagulation studies. Please contact the laboratory at [phone] for redraw instructions.CO gastric emptying studyon [id number] gastric emptying studyCLEVELAND CLIN[facility] [place] [address] Nuclear Medicine Report Signed Patient: Brian Sullivan MR#: [id number] 177 : 1995 Acct:[id number] Age/Sex: 29 / F ADM Date: 05/27/25 Loc: [place] Room: Type: [facility] Attending Dr: Janak Stanton SENIOR [employer] DEVELOPER Copies to: Darinel Espinoza II, MD Ryan M Scovanner, APRN Ordering Provider: Janak Stanton APRN Date of Service: 05/27/25 NM/NM gastric emptying study: R10.13 - Epigastric pain NM gastric emptying study 05/27/2025 11:18 AM SIGNS AND SYMPTOMS: R10.13 - Epigastric pain PROTOCOL: Scintigraphic images of the abdomen obtained after oral radiotracer administration. Region of interest was drawn along the gastric lumen with percent retained gastric activity calculat ed from the 240 minutes. COMPARISON: None. RADIOPHARMACEUTICAL: 1.0 mCi of oral technetium 99m sulfur colloid mixed with egg FINDINGS: Radiotracer activity is noted within the gastric lumen. There is emptying into the small bowel throughout the study. No gastroesophageal reflux is noted. At 30 minutes 102% of radiotracer material is retained within the gastric lumen. At 60 minutes 95% of radiotracer material is retained within the gastric lumen. At 120 minutes 60% of radiotracer material is retained within the gastric lumen. At 180 minutes 41% of radiotracer material is retained within the gastric lumen. At 240 minutes 23% of radiotracer material is retained within the gastric lumen. NM/NM gastric emptying study IMPRESSION: At 240 minutes 23% of radiotracer material is retained within the gastric lumen. This is consistent with gastroparesis. Impression dictated by: Darinel Espinoza M.D. 05/27/2025 3:09 PM Dictation Location: [facility]- Transcribed By: SABA 05/27/25 1509 Dictated By: Darinel Espinoza II, MD 05/27/25 1506 Signed By: 05/27/25 1509[facility] head/brain wo/w [facility] [id number] head/brain wo/w [facility] [place] [address] MRI Report Signed Patient: Brian Sullivan MR#: [id number] 177 : 1995 Acct:[id number] Age/Sex: 29 / F ADM Date: 05/18/25 Loc: MR Room: Type: [facility] Attending Dr: Shaun Aviles DO Copies to: Shaun Aviles DO Ordering Provider: Shaun Aviles DO Date of Service: 05/18/25 MR/MR head/brain wo/w con: R51.9,R90.89 EXAMINATION: MRI OF THE BRAIN WITHOUT AND WITH CONTRAST CLINICAL HISTORY: Frequent headaches, abnormal MRI brain COMPARISON: MR brain without contrast 04/21/2025 TECHNIQUE: Multiecho, multiplanar imaging of the brain was performed without enhancement. FINDINGS: No restricted diffusion to suggest acute territorial infarct. Ventricles and sulci are normal in size and configuration for the patient's age. No shift of midline structure basal cisterns are patent. Major intracranial arterial vascular flow was preserved. Similar cerebellar tonsillar ectopia. Cerebellar tonsils maintain a normal rounded configuration. Diminished pontomedullary distance measuring 4.2 mm. There is abnormal angulation at the level of the mid brain pontine angle measuring 40 degrees., Slightly improved. Partially empty sella turcica. No abnormal GRE signal. Minor sinus mucosal thickening. On postcontrast imaging, there is slight bulbous appearance of the dural venous sinuses which can BE seen with hypotension. No diffuse pachymeningeal enhancement identified MR/MR head/brain wo/w con IMPRESSION: Slight prominence of the dural venous sinuses could suggest intracranial hypotension in the appropriate setting.. Stable appearance of the pontomedullary angle Otherwise negative acute intracranial process by MRI. Impression dictated by: Keny Zaragoza M.D. 05/19/2025 8:55 AM Dictation Location: [place] [address] Transcribed By: [facility] 05/19/25 0855 Dictated By: Keny Zaragoza MD 05/19/25 0844 Signed By: 05/19/25 0855[facility] Physician GroupBasophils/100 WBC Manual cnt (Bld)Ordered By: Aaron Cervantes on 92-39-2094Birejxfig/100 WBC (Bld)0.0 %Low 0.2-2.0[facility] HospitalEosinophils/100 WBC Manual cnt (Bld) Ordered By: Aaron Cervantes on 99-83-9233Oobfryxwssl/100 WBC (Bld)0.0 %Low0.9-7.0 [facility] [facility] HospitalErythrocyte distribution width Auto (RBC) [Ratio]Ordered By: Aaron Cervantes on 98-04-1670Ycljqzdxxuq distribution width (RBC) [Ratio]13.0 %11.0-15.0St. Vincent HospitalEstimated glomerular filtration rate (GFR) non- AmericanOrdered By: Aaron Cervantes on 26-60-2048XBK/1.73 sq M.predicted among non-blacks MDRD (S/P/Bld) [Vol rate/Area]mL/min/{1.73_m2}>=60 mL/min/1.73m 2FMercy Health Springfield Regional Medical Center Hematocrit Auto (Bld) [Volume fraction]Ordered By: Aaron Cervantes on 05-03-2025 Hematocrit (Bld) [Volume fraction]39.5 %36.0-48.0[facility]. [facility] HospitalHemoglobin [Mass/volume] in BloodOrdered By: Aaron Cervantes on 05-03-2025 Hemoglobin (Bld) [Mass/Vol]13.5 g/dL12.0-16.0[facility] Laboratory - Chemistry and Chemistry - challengeOrdered By: Aaron Cervantes on 47-05-3225Ivsqkze [Mass/Vol]9.3 mg/dL8.5-10.1FMercy Health Springfield Regional [facility] Center Chloride [Moles/Vol]104 mmol/Z86-108AoqfcaybtSt. Vincent HospitalCO2 [Moles/Vol]22.5 mmol/L21.0-32.0[facility] HospitalCreatinine [Mass/Vol]0.70 mg/dL0.55-1.02St. [facility] HospitalGFR/1.73 sq M.predicted MDRD (S/P/Bld) [Vol rate/Area]mL/min/{1.73_m2}>=60 mL/min/1.73m [address] [facility] HospitalGlucose [Mass/Vol]98 mg/hH92-410XqzhmoojxSt. Vincent HospitalPotassium [Moles/Vol]3.4 mmol/LLow3.5-5.1FMcCullough-Hyde Memorial Hospitalodium [Moles/Vol]139 mmol/X732-671JznbxalqaSt. Vincent HospitalUrea nitrogen [Mass/Vol]8.0 mg/dL7.0-18.0St. Vincent HospitalUrea nitrogen/Creatinine [Mass ratio]11.4 mg/mgSt. Vincent HospitalLaboratory - Hematology and Cell countsOrdered By: Aaron Cervantes on 19-80-9578Gnvh form neutrophils/100 WBC (Bld)2.0 %0-5FMercy Health Springfield Regional Medical CenterLymphocytes/100 WBC (Bld)5.0 %Low20.5-60.0[facility]. [facility] HospitalMonocytes/100 WBC (Bld)8.0 %1.7-12.0[facility]. [facility] HospitalLeukocytes [#/volume] corrected for nucleated erythrocytes in Blood by Automated counOrdered By: Aaron Cervantes on 22-57-5492CUV corrected for nucl RBC Auto (Bld) [#/Vol]9.2 10 3/uL4.0-11.0[facility] CenterH Auto (RBC) [Entitic mass]Ordered By: Aaron Cervantes on 28-17-2852MVD (RBC) [Entitic mass]27.8 pg26.7-34.0[facility] CenterHC Auto (RBC) [Mass/Vol] Ordered By: Aaron Cervantes on 19-63-7849LYQK (RBC) [Mass/Vol]34.2 g/dL29.9-35.2 [facility] CenterV Auto (RBC) [Entitic vol]Ordered By: Aaron Cervantes on 29-35-8214JIN (RBC) [Entitic vol]81.3 fL81.0-99.0St. Vincent HospitalNo Panel InformationOrdered By: Aaron Cervantes on 05-03-2025 Absolute Basophils (Manual)0.00 10 3/uL0.00-0.10St. Vincent HospitalBand Neutrophils # (Manual)0.2 10 3/uL0.0-0.3FMercy Health Springfield Regional Medical CenterEosinophils # (Manual)0.00 10 3/uL0.00-0.70St. [facility] HospitalHuman Chorionic Gonadotropin, QualNegativeNEGATIVESt. Vincent HospitalLymphocytes # (Manual)0.46 10 3/uLLow1.20-3.80St. [facility] HospitalMonocytes # (Manual)0.73 10 3/uL0.30-0.80[facility] Cross Hospitalegmented Neutrophils # (Manual)7.82 10 3/uLHigh1.4-6.5FMercy Health Springfield Regional Medical CenterPlatelet mean volume Auto (Bld) [Entitic vol]Ordered By: Aaron Cervantes on 17-92-2809Rbyhjnue mean volume (Bld) [Entitic vol]9.2 fLLow 9.5-13.5FMercy Health Springfield Regional Medical CenterPlatelets Auto (Bld) [#/Vol]Ordered By: Aaron Cervantes on 06-67-8684Zadtpkcqy (Bld) [#/Vol]201 10 3/tI271-677UjmcqxzlnSt. Vincent HospitalRBC Auto (Bld) [#/Vol]Ordered By: Aaron Cervantes on 49-93-0893HML (Bld) [#/Vol]4.86 10 6/uL4.20-5.40Green Cross Hospitalegmented neutrophils/100 WBC Manual cnt (Bld)Ordered By: Aaron Cervantes on 02-08-9539Nralqbpsn neutrophils/100 WBC (Bld)85.0 %High43.0-75.0Green Cross Hospitalerum or plasma anion gap determinationOrdered By: Aaron Cervantes on 85-05-1109Ztdic gap [Moles/Vol]15.9 mmol/LFMercy Health Springfield Regional Medical CenterMR head/brain wo conon 06-19-7174KL head/brain wo [facility] [place] [address] MRI Report Signed Patient: Brian Sullivan MR#: [id number] 177 : 1995 Acct:[id number] Age/Sex: 29 / F ADM Date: 04/21/25 [facility] Attending Dr: Shaun Aviles DO Copies [...] Zaragoza M.D. 04/21/2025 1:14 PM Dictation Location: [place] [address] Transcribed By: SABA 04/21/25 1314 Dictated By: Keny Zaragoza MD 04/21/25 1304 Signed By: 04/21/25 1314[facility] Physician GroupAbrazo West Campusetic resonance imaging reportOrdered By: Keny Zaragoza on 33-22-5060Fusve reportCLEVELAND CLINIC [facility]IR[facility] [address] [place] [address] [place] [address] MRI Report Signed Patient: Brian Sullivan MR#: [id number] : 1995 Acct:[id number] Age/Sex: 29 / F ADM Date: 5 Loc: [facility] Room: Type: [facility] Attending Dr: Shaun Aviles DO Copies to: Shaun Aviles DO~ Ordering Provider: Shaun Aviles DO Date of Service: 04/21/25 MR/MR head/brain wo con: R51.9 - Headache, unspecified EXAMINATION: MRI OF THE BRAIN WITHOUT CONTRAST CLINICAL HISTORY: Occipital/orbital headaches, nausea, dizziness and memory loss for several years,symptoms worsening COMPARISON: None TECHNIQUE: Multiecho, multiplanar imaging of the brain was performed without enhancement. FINDINGS: No restricted diffusion to suggest acute territorial infarct. Ventricles and sulci are normal in size and configuration for the patient's age. No shift of midline structure basal cisterns are patent.Major intracranial arterial vascular flow was preserved. There [...] Zaragoza M.D. 04/21/2025 1:14 PM Dictation Location: [facility] Transcribed By: SABA 04/21/25 1314 Dictated By: Keny Zaragoza MD 04/21/25 1304 Signed By: 04/21/[address] [facility] Work Phone: IGP,APTIMA HPV,AGE GDLNon 90-21-0362NLH GDLN ACOG TESTINGNote.NOMS HealthcareComment on above:TESTS RESULT FLAG UNITS REF RANGE LAB Clinician Provided Cytology Information Source.............Cervix;Endocervix No. of containers..01 ThinPrep Vial Age Algo ACOG Cecelia... -05 11 FLAG LEGEND: L-Low Normal,H-High Normal,LL-Alert Low,HH-Alert High <-Panic Low,>-Panic High,A-Abnormal,AA-Critical Abnormal Performed at: 01 =G [address] [address] Christal Eli MD, IGP, RFX APTIMA HPV ASCUNote.NOMS HealthcareComment on above:TESTS RESULT FLAG UNITS REF RANGE LAB DIAGNOSIS: 02 NEGATIVE FOR INTRAEPITHELIAL LESION OR MALIGNANCY. THIS SPECIMEN WAS RESCREENED PART OF OUR ASSOCIATE ENGINEER PROGRAM. Specimen adequacy: 02 Satisfactory for evaluation. Endocervical and/or squamous metaplastic cells (endocervical component) are present. Performed by: Clara Lane, Screen Cleaner (ASC) QC reviewed by: Clara Wade, Screen Cleaner ([facility]) . 02 Note: Note 02 The [...] <-Panic Low,>-Panic High,A-Abnormal,AA-Critical Abnormal Performed at: [address] [address] Christal Eli MD, Performed at: =G - [facility] [address] [facility] [place] [id number] Residential Housekeeper: Christal Eli MD, Phone: [phone] Performed at: - [facility] [address] [address] [place], [place] [id number] Residential Housekeeper: Christal Eli MD, Phone: [phone] BRUSH-SPATULA CERVIX ENDOCERVIX CLINISYSt. Mary's Medical CenterHCG ( test) Ql (U)on 45-66-3917Tlksazbybboxog and review of laboratory resultsNormalCenterpoint Medical CenterPreg Test, UrNegative NegativeNOTomah Memorial Hospital papilloma virus 16+18+31+33+35+39+45+51+52+56+58+59+66+68 DNA [Presence] in Stephen 68-78-5696FRE 16+18+31+33+35+39+45+51+52+56+58+59+66+68 DNA Probe+sig amp Ql (Cvx)Human papilloma virus 16+18+31+33+35+39+45+51+52+56+58+59+66+68 DNA [Presence] in Cer. St. Vincent HospitalComment on above:TESTS RESULT FLAG UNITS REF RANGE LAB DIAGNOSIS: 02 NEGATIVE FOR INTRAEPITHELIAL LESION OR MALIGNANCY. THIS SPECIMEN WAS RESCREENED PART OF OUR ASSOCIATE ENGINEER PROGRAM.Specimen adequacy: 02 Satisfactory for evaluation. Endocervical and/or squamous metaplastic cells (endocervical component) are present.Performed by: [address] Cytot echnologist (ASCP)QC reviewed by: 02 Benita Wade, Screen Cleaner (ASCP). 02Note: Note 02 The Pap smear [...] LEGEND: L-Low Normal,H-High Normal,LL-Alert Low,HH-Alert High <-Panic Low,>- Panic High,A-Abnormal,AA-Critical A bnormal Performed at:[address] [address] Christal Eli MD, Fphehhtjk at: = - [facility] [address] [id number] Director: Christal Eli MD, Phone: [phone] at: [facility] [id number] Director: Christal Eli MD, Phone: [phone] [facility] Informationon 98-23-8626Yguxagluw Lab Test Patient AgeNote.[facility] Comment on above:TESTS RESULT FLAG UNITS REF RANGE LAB Clinician Provided Cytology Information Source.............Cervix;Endocervix No. of containers..01 ThinPrep VialAge Jacquelyn TONY Cecelia... FLAG LEGEND: L-Low Normal,H-High Normal,LL-Alert Low,HH-Alert High <-Panic Low,>-Panic High,A- Abnormal,AA-Critical Abnormal Performed a t:01 =G [facility] [address] [address] [place] [address] Christal Eli MD, Zdjthvs aminotransferase [Enzymatic activity/volume] in Serum or PlasmaOrdered By: Shaun Aviles on 11-49-8991NNE [Catalytic activity/Vol]10 U/LNormalSt. Vincent HospitalComment on above:Performed By: #### MARCIA, TSH3, [id number], LIPID, CMP, T4F #### [facility] [address] [place] [address] USAALT [Catalytic activity/Vol]Alanine aminotransferase [Enzymatic activity/volume] in Serum or PlasmaSt. Vincent HospitalAlbumin [Mass/volume] in Serum or Plasma by Bromocresol green (BCG) dye binding methoOrdered By: Shaun Aviles on 64-75-5969Fxuapfp BCG dye [Mass/Vol]4.3 g/dL3.5-5.7FMercy Health Springfield Regional Medical CenterAlbumin BCG dye [Mass/Vol]Albumin [Mass/volume] in Serum or Plasma by Bromocresol green (BCG) dye binding metho 3.5-5.7FMercy Health Springfield Regional Medical CenterAlkaline phosphatase [Enzymatic activity/volume] in Serum or PlasmaOrdered By: Shaun Aviles on 82-66-1444FVQ [Catalytic activity/Vol]111 U/XOepe34-086Rlpoty[address] Comment on above:Performed By: #### MARCIA, TSH3, UJVS10EV, LIPID, CMP, T4F #### [facility] [address] [place] [address] USAALP [Catalytic activity/Vol]Alkaline phosphatase [Enzymatic activity/volume] in Serum or CaqpbzNoyi83-357GutnobiiwSt. Vincent HospitalAspartate aminotransferase [Enzymatic activity/volume] in Serum or PlasmaOrdered By: Shaun Aviles on 94-58-4482XPT [Catalytic activity/Vol]15 U/L Vdgifa98-49AcceoldvfSt. Vincent HospitalComment on above:Performed By: #### MARCIA, TSH3, [id number], LIPID, CMP, T4F #### [facility] [address] [place] [address] USAAST [Catalytic activity/Vol]Aspartate aminotransferase [Enzymatic activity/volume] in Serum or Plrayy24-88QrkovfnyaSt. Vincent HospitalAutomated basophil %Ordered By: Shaun Aviles on 64-40-4896Asxfuonro/100 WBC (Bld)0.3 %Normal.St. Vincent HospitalComment on above:Performed By: #### CBC #### [place] [address] USAAutomated basophil countOrdered By: Shaun Aviles on 03-62-5492Vqptydipb (Bld) [#/Vol]0.0 10*3/uLNormal0.0-0.2FMercy Health Springfield Regional Medical CenterComment on above:Result Comment: PERFORMED BY: [place] [address] PATHOLOGIST [employer]WORK INSTALLER ALBA SCHULTE M.D.Performed By: #### CBC #### [place] [address] USAAutomated blood monocyte countOrdered By: Shaun Aviles on 48-00-1988Kzcumtgmj (Bld) [#/Vol]0.5 10*3/uLNormal0.0-0.8St. Vincent HospitalComment on above:Performed By: #### CBC #### [place] [address] USAAutomated eosinophil %Ordered By: Shaun Aviles on 08-05-2024 Eosinophils/100 WBC (Bld)0.0 %Normal.St. Vincent HospitalComment on above:Performed By: #### CBC #### [place] [address] USAAutomated eosinophil countOrdered By: Shaun Aviles on 45-75-2340Jtcwfzcrrls (Bld) [#/Vol]0.0 10*3/uLNormal0.0-0.45St. Vincent HospitalComment on above:Performed By: #### CBC #### [place] [address] USAAutomated monocyte %Ordered By: Shaun Aviles on 08-05-2024 Monocytes/100 WBC (Bld)6.8 %Normal.St. Vincent HospitalComment on above:Performed By: #### CBC #### [place] [address] USAAutomated neutrophil %Ordered By: Shaun Aviles on 08-05-2024 Neutrophils/100 WBC (Bld)68.8 %Normal.St. Vincent HospitalComment on above:Performed By: #### CBC #### [place] [address] USABasophils Auto (Bld) [#/Vol]Ordered By: Shaun Aviles on 79-11-0365Lxioqmfkc (Bld) [#/Vol]Automated basophil count0.0-0.2FMercy Health Springfield Regional Medical CenterBasophils/100 WBC Auto (Bld)Ordered By: Shaun Aviles on 43-45-3025Bkewkelwf/100 WBC (Bld)Automated basophil %.St. Vincent HospitalBilirubin.total [Mass/volume] in Serum or PlasmaOrdered By: Shaun Aviles on 50-26-1054Hrtyljbuo [Mass/Vol]0.4 mg/dLNormal0.3-1.0St. Vincent HospitalComment on above:Performed By: #### MARCIA, TSH3, BPBP41BL, LIPID, CMP, T4F #### [place] [address] USABilirubin [Mass/Vol]Bilirubin.total [Mass/volume] in Serum or Plasma0.3-1.0St. Vincent HospitalCalcium [Mass/volume] in Serum or PlasmaOrdered By: Shaun Aviles on 80-24-8124Ricznlq [Mass/Vol]9.7 mg/dLNormal 8.6-10.3FMercy Health Springfield Regional Medical CenterComment on above:Performed By: #### MARCIA, TSH3, [id number], LIPID, CMP, T4F #### [facility] [address] [place] [address] USACalcium [Mass/Vol]Calcium [Mass/volume] in Serum or Plasma 8.6-10.3FMercy Health Springfield Regional Medical CenterCarbon dioxide, total [Moles/volume] in Serum or PlasmaOrdered By: Shaun Aviles on 14-43-2466OV3 [Moles/Vol]28.3 mmol/L Yttazy56.0-31.0St. Vincent HospitalComment on above:Performed By: #### MARCIA, TSH3, [id number], LIPID, CMP, T4F #### [facility] [address] [place] [id number] USACO2 [Moles/Vol]Carbon dioxide, total [Moles/volume] in Serum or Yllddm18.0-31.0St. [facility] HospitalChloride [Moles/volume] in Serum or PlasmaOrdered By: Shaun Aviles on 17-13-2623Ilzciqvx [Moles/Vol]105 mmol/ECyjdfj82-749LqinhllmfSt. Vincent HospitalComment on above:Performed By: #### MARCIA, TSH3, [id number], LIPID, CMP, T4F #### [facility] [address] [place] [id number] USAChloride [Moles/Vol]Chloride [Moles/volume] in Serum or Lrvzca66-571EkarbyhhdSt. Vincent HospitalCholesterol [Mass/volume] in Serum or PlasmaOrdered By: Shaun Aviles on 98-05-7544Idtlxfgqzze [Mass/Vol]153 mg/dL Rgvauv914-346FwecwstzxSt. Vincent HospitalComment on above:Chol less than 200 mg/dl low riskChol 201-239 mg/dl borderline riskChol 240 mg/dl and greater high riskResult Comment: Chol less than 200 mg/dl low risk Chol 201-239 mg/dl borderline risk Chol 240 mg/dl and greater high riskPerformed By: #### MARCIA, TSH3, [id number], LIPID, CMP, T4F #### [facility] [address] [place] [id number] USACholesterol [Mass/Vol]Cholesterol [Mass/volume] in Serum or Svnsmg540-670NrvqololeSt. Vincent HospitalComment on above:Chol less than 200 mg/dl low riskChol 201-239 mg/dl borderline riskChol 240 mg/dl and greater high riskCholesterol in HDL [Mass/volume] in Serum or PlasmaOrdered By: Shaun Aviles on 88-67-1389Jvjtyetlbut in HDL [Mass/Vol]Serum or plasma high density lipoprotein (HDL) cholesterol vcduvteujfi21-35WxtwyqvpdSt. Vincent Hospital Comment on above:HDL CHOL ATP-III CLASSIFICATION Cardiovascular RiskHDL > or equal to 60 mg/dL LOWHDL < 40 mg/dL HIGHCholesterol in LDL Calc [Mass/Vol] Ordered By: Shaun Aviles on 05-49-8296Jkidwxjvlpz in LDL [Mass/Vol]92 mg/dL0 St. Vincent HospitalComment on above:LDL ATP III CLASSIFICATIONLDL less than 100 mg/dL OptimalLDL 100-129 mg/dL Near or above ohigryoFZG466-120 mg/dL Borderline highLDL 160-189 mg/dL HighLDL greater than 189 mg/dL Very high Cholesterol in LDL [Mass/Vol]Cholesterol in LDL [Mass/volume] in Serum or Plasma by calculationSt. Vincent HospitalComment on above:LDL ATP III CLASSIFICATIONLDL less than 100 mg/dL OptimalLDL 100-129 mg/dL Near or above owivictJTK480-834 mg/dL Borderline highLDL 160-189 mg/dL HighLDL greater than 189 mg/dL Very highCholesterol in VLDL Calc [Mass/Vol]Ordered By: Shaun Aviles on 45-68-6143Htqxrslhspg in VLDL [Mass/Vol]15 mg/dLSt. Vincent HospitalCholesterol in VLDL [Mass/Vol]Cholesterol in VLDL [Mass/volume] in Serum or Plasma by calculationSt. Vincent HospitalComplete Blood Count Auto Diffon 78-28-8429Oxbv Corpuscular HGB Conc34.1 g/eGHjxwbq40.0-35.0[facility] Physician [facility] State HospitalComment on above:Performed By: #### CBC #### [facility] [address] [place] [address] USANRBC%0.1 /100{WBC}Normal0-0.5The [facility] Physician [facility] Comment on above:Performed By: #### CBC #### [facility] [address] [place] [address] USAComprehensive Metabolic Panelon 19-84-2934Vsqajds [Mass/Vol]4.3 g/dLNormal3.5-5.7The [facility] Physician [facility] State HospitalComment on above: Performed By: #### MARCIA, TSH3, [id number], LIPID, CMP, T4F #### [facility] [address] [place] [address] USAGFR/1.73 sq M.predicted MDRD (S/P/Bld) [Vol rate/Area] mL/min/{1.73_m2}NormalThe [facility] Physician [facility] State HospitalComment on above:Performed By: #### MARCIA, TSH3, [id number], LIPID, CMP, T4F #### [facility] [address] [place] [address] USACortisolon 57-52-8428Pdpmpzxo2.9 ug/dLNormalThe [facility] Physician [facility] HospitalComment on above:Result Comment: Reference range: AM 6 - 24 ug/dl PM <10 ug/dl [facility] Laboratory automotive generator repairer and method: NitroPCREL DXI, POLYCLONAL ANTIBODY CORTISOL ASSAY.Performed By: #### MARCIA, TSH3, [id number], LIPID, CMP, T4F #### [facility] [address] [place] [address] USACortisol [Mass/volume] in Serum or PlasmaOrdered By: Shaun Aviles on 44-49-8922Ecnbawxc [Mass/Vol]Random cortisol measurementSt. Vincent HospitalComment on above:[facility] Laboratory automotive generator repairer and method:LIYA UNICEL DXI, POLYCLONAL ANTIBODY CORTISOL ASSAY.Reference range: AM 6 - 24 ug/dl PM <10 ug/dlCreatinine [Mass/volume] in Serum or PlasmaOrdered By: Shaun Aviles on 21-27-8028Fujuskpkcg [Mass/Vol]0.69 mg/dLNormal0.60-1.20 [facility] HospitalComment on above:Performed By: #### MARCIA, TSH3, [id number], LIPID, CMP, T4F #### [facility] [address] [place] [address] USACreatinine [Mass/Vol]Creatinine [Mass/volume] in Serum or Plasma0.60-1.20St. Vincent HospitalEosinophils Auto (Bld) [#/Vol] Ordered By: Shaun Aviles on 75-73-2003Uckqofwkmkr (Bld) [#/Vol]Automated eosinophil count0.0-0.45St. Vincent HospitalEosinophils/100 WBC Auto (Bld)Ordered By: Shaun Aviles on 71-14-2075Mbvzfykurnz/100 WBC (Bld)Automated eosinophil %.St. Vincent HospitalErythrocyte distribution width Auto (RBC) [Ratio]Ordered By: Shaun Aviles on 41-38-8406Gxphywwmqpb distribution width (RBC) [Ratio]Erythrocyte distribution width [Ratio] by Automated count 11.9-15.3FMercy Health Springfield Regional Medical CenterErythrocyte distribution width [Ratio] by Automated countOrdered By: Shaun Aviles on 03-92-7125Zboxhrwwpbt distribution width (RBC) [Ratio]13.8 %Eplpoa42.9-15.3FMercy Health Springfield Regional Medical CenterComment on above:Performed By: #### CBC #### [facility] [address] [place] [address] USAErythrocytes [#/volume] in Blood by Automated countOrdered By: Shaun Aviles on 72-68-0581PFF (Bld) [#/Vol]4.76 10*6/uLNormal3.60-5.00 [facility] HospitalComment on above:Performed By: #### CBC #### [facility] [address] [place] [address] USAGlobulin Calc (S) [Mass/Vol]Ordered By: Shaun Aviels on 89-75-9369Pubueoiz (S) [Mass/Vol]Serum globulin measurement by calculation (mass/volume)[facility] HospitalGlucose [Mass/volume] in Serum or PlasmaOrdered By: Shaun Aviles on 97-87-7950Agffwxf [Mass/Vol]90 mg/yGQgtijt07-045 [facility] HospitalComment on above:ADA recommended reference rangeRandom Glucose Reference Range is dependent on time and content of last meal. Glucose of more than 200 mg/dL in a nonstressed, ambulatory subject supports the diagnosisof Diabetes Mellitus.Result Comment: Random Glucose Reference Range is dependent on time and content of last meal. Glucose of more than 200 mg/dL in a nonstressed, ambulatory subject supports the diagnosis of Diabetes Mellitus. ADA recommended reference rangePerformed By: #### MARCIA, TSH3, [id number], LIPID, CMP, T4F #### [facility] [address] [place] [id number] USAGlucose [Mass/Vol]Glucose [Mass/volume] in Serum or Plasma 70-100St. Vincent HospitalComment on above:ADA recommended reference rangeRandom Glucose Reference Range is dependent on time and content of last meal. Glucose of more than 200 mg/dL in a nonstressed, ambulatory subject supports the diagnosisof Diabetes Mellitus.Hematocrit Auto (Bld) [Volume fraction]Ordered By: Shaun Aviles on 50-21-1692Zfmmlcghpn (Bld) [Volume fraction] Hematocrit [Volume Fraction] of Blood by Automated count34.0-46.4FMercy Health Springfield Regional Medical CenterHematocrit [Volume Fraction] of Blood by Automated count Ordered By: Shaun Aviles on 18-33-3221Emvvgvhnmb (Bld) [Volume fraction]39.2 % Pdrlav81.0-46.4FMercy Health Springfield Regional Medical CenterComment on above:Performed By: #### CBC #### [facility] [address] [place] [address] USAHemoglobin [Mass/volume] in BloodOrdered By: Shaun Aviles on 94-59-6889Przogkqnmy (Bld) [Mass/Vol]13.4 g/uVNcynbq87.8-15.4FMercy Health Springfield Regional Medical CenterComment on above:Performed By: #### CBC #### [facility] [address] [place] [address] USAHemoglobin (Bld) [Mass/Vol]Hemoglobin [Mass/volume] in Blood11.8-15.4FMercy Health Springfield Regional Medical CenterLeukocytes [#/volume] corrected for nucleated erythrocytes in Blood by Automated counOrdered By: Shaun Aviles on 17-19-4596VHC corrected for nucl RBC Auto (Bld) [#/Vol]7.5 10*3/uL3.8-11.6 [facility] HospitalWBC corrected for nucl RBC Auto (Bld) [#/Vol] Leukocytes [#/volume] corrected for nucleated erythrocytes in Blood by Automated coun3.8-11.6FMercy Health Springfield Regional Medical CenterLeukocytes [#/volume] in Blood by Automated countOrdered By: Shaun Aviles on 43-17-4279JQJ (Bld) [#/Vol]7.5 10*3/uL Normal3.8-11.6FMercy Health Springfield Regional Medical CenterComment on above:Performed By: #### CBC #### [facility] [address] [place] [address] USALipid Panelon 51-82-9079ONO Cholesterol,Sipubmsjbw80 mg/dL Normal0-100The [facility] Physician GroupComment on above:Result Comment: LDL ATP III CLASSIFICATION LDL less than 100 mg/dL Optimal LDL 100-129 mg/dL Near or above optimal LDL 130-159 mg/dL Borderline high LDL 160-189 mg/dL High LDL greater than 189 mg/dL Very highPerformed By: #### MARCIA, TSH3, [id number], LIPID, CMP, T4F #### [facility] [address] [place] [address] USATriglyceride w/Rwgrng62 mg/dLNormal0-149The [facility] Physician GroupComment on above:Result Comment: TRIG ATP III CLASSIFICATION TRIG less than 150 mg/dL Normal TRIG 150-199 mg/dL Borderline high TRIG 200-500 mg/dL High TRIG greater than 500 mg/dL Very high Standard traceable to the Center for Disease Conrtrol and Prevention (CDC) test method.Performed By: #### MARCIA, TSH3, [id number], LIPID, CMP, T4F #### [facility] [address] [place] [address] USAVLDL FAFWJWNUYHB22 mg/dLNormalThe Firelands Physician GroupComment on above:Performed By: #### MARCIA, TSH3, [id number], LIPID, CMP, T4F #### [facility] [address] [place] [id number] USALymphocytes Auto (Bld) [#/Vol]Ordered By: Shaun Aviles on 62-26-9474Llxnbmmuhlp (Bld) [#/Vol]Lymphocytes [#/volume] in Blood by Automated count1.00-4.8St. Vincent HospitalLymphocytes [#/volume] in Blood by Automated countOrdered By: Shaun Aviles on 14-81-7161Zhgwxiqbvqf (Bld) [#/Vol]1.8 10*3/uLNormal1.00-4.8St. Vincent HospitalComment on above: Performed By: #### CBC #### [place] [id number] USALymphocytes/100 WBC Auto (Bld)Ordered By: Shaun Aviles on 37-09-3481Szrqdgzxtuj/100 WBC (Bld)Lymphocytes/100 leukocytes in Blood by Automated count.[facility]. Vincent HospitalLymphocytes/100 leukocytes in Blood by Automated countOrdered By: Shaun Aviles on 07-61-8975Kdzufikwmik/100 WBC (Bld)24.1 %Normal.St. Vincent HospitalComment on above:Performed By: #### CBC #### [place] [id number] [facility] [place] (RBC) [Entitic mass]Ordered By: Shaun Aviles on 83-92-8072RES (RBC) [Entitic mass]MCH [Entitic mass] by Automated count24.7-34.3 [facility] [Entitic mass] by Automated countOrdered By: Shaun Aviles on 07-68-7400ZHV (RBC) [Entitic mass]28.1 nxBvftxi43.7-34.3 [facility] HospitalComment on above:Performed By: #### CBC #### [address] [place] [address] USAMCHC Auto (RBC) [Mass/Vol]Ordered By: Shaun Aviles on 53-51-5815QEAY (RBC) [Mass/Vol]34.1 g/dL32.0-35.0[facility] CenterHC (RBC) [Mass/Vol]MCHC [Mass/volume] by Automated count32.0-35.0 [facility] [facility] HospitalMCV Auto (RBC) [Entitic vol]Ordered By: Shaun Aviles on 91-55-2138BOR (RBC) [Entitic vol]MCV [Entitic volume] by Automated count 80-100St. [facility] HospitalMCV [Entitic volume] by Automated count Ordered By: Shaun Aviles on 57-23-3670ETM (RBC) [Entitic vol]82.3 [address]OUsrwvc05-071 [facility] HospitalComment on above:Performed By: #### CBC #### [facility] [address] [place] [address] USAMonocytes Auto (Bld) [#/Vol]Ordered By: Shaun Aviles on 36-27-4017Cbilssyuu (Bld) [#/Vol]Automated blood monocyte count0.0-0.8St. [facility] HospitalMonocytes/100 WBC Auto (Bld)Ordered By: Shaun Aviles on 63-89-1677Wuqcxzckc/100 WBC (Bld)Automated monocyte %.[facility]. [facility] HospitalNeutrophils Auto (Bld) [#/Vol]Ordered By: Shaun Aviles on 08-05-2024 Neutrophils (Bld) [#/Vol]Neutrophils [#/volume] in Blood by Automated count 1.8-7.7FMercy Health Springfield Regional Medical CenterNeutrophils [#/volume] in Blood by Automated countOrdered By: Shuan Aviles on 09-94-6079Pimecgshxgf (Bld) [#/Vol]5.2 10*3/uLNormal1.8-7.7FMercy Health Springfield Regional Medical CenterComment on above:Performed By: #### CBC #### [place] [address] USANeutrophils/100 WBC Auto (Bld)Ordered By: Shaun Aviles on 00-24-7062Xrwohhqmfpr/100 WBC (Bld)Automated neutrophil %.[facility]. [facility] HospitalNo Panel InformationOrdered By: Shaun Aviles on 92-80-4371Wklrvehrr GFR (CKD-EPI)> 60.0 mL/MinSt. Vincent HospitalPharmacy Creatinine Clearance (ChemN/AFMercy Health Springfield Regional Medical CenterNucleated erythrocytes [Presence] in Blood by Automated countOrdered By: Shaun Aviles on 08-05-2024 Nucleated RBC Auto Ql (Bld)0.1 /100{WBC}0-0.5FMercy Health Springfield Regional Medical Center Nucleated RBC Auto Ql (Bld)Nucleated erythrocytes [Presence] in Blood by Automated count0-0.5FMercy Health Springfield Regional Medical CenterPlatelet mean volume Auto (Bld) [Entitic vol]Ordered By: Shaun Aviles on 53-04-8743Mycrzxgn mean volume (Bld) [Entitic vol]Platelet mean volume [Entitic volume] in Blood by Automated count6.3-10.7FMercy Health Springfield Regional Medical CenterPlatelet mean volume [Entitic volume] in Blood by Automated countOrdered By: Shaun Aviles on 81-82-0137Ftpumags mean volume (Bld) [Entitic vol]7.4 fLNormal6.3-10.7FMercy Health Springfield Regional Medical CenterComment on above:Performed By: #### CBC #### [facility] [address] [place] [id number] USAPlatelets Auto (Bld) [#/Vol]Ordered By: Shaun Aviles on 98-60-8163Tzdvpoley (Bld) [#/Vol]Platelets [#/volume] in Blood by Automated cunku537-582DdrajvrkvSt. Vincent HospitalPlatelets [#/volume] in Blood by Automated countOrdered By: Shaun Aviles on 51-23-0960Bqkctvfuy (Bld) [#/Vol]253 10*3/dLAogwnq537-030Oxdwql[address] [place], [place] [address]Comment on above:Performed By: #### CBC #### [facility] [address] [place] [id number] USAPotassium [Moles/volume] in Serum or PlasmaOrdered By: Shaun Aviles on 67-93-5459Tqauhlcsp [Moles/Vol]4.8 mmol/LNormal3.5-5.1FMercy Health Springfield Regional Medical CenterComment on above:Performed By: #### MARCIA, TSH3, [id number], LIPID, CMP, T4F #### [facility] [address] [place] [address] USAPotassium [Moles/Vol]Potassium [Moles/volume] in Serum or Plasma3.5-5.1FMercy Health Springfield Regional Medical CenterProtein [Mass/volume] in Serum or PlasmaOrdered By: Shaun Aviles on 67-28-1466Tyonibz [Mass/Vol]7.1 g/dLNormal 6.4-8.9St. [facility] HospitalComment on above:Performed By: #### MARCIA, TSH3, [id number], LIPID, CMP, T4F #### [address] [address] USAProtein [Mass/Vol]Protein [Mass/volume] in Serum or Plasma 6.4-8.9St. Vincent HospitalRB Auto (Bld) [#/Vol]Ordered By: Shaun Aviles on 25-03-5593HAZ (Bld) [#/Vol]Erythrocytes [#/volume] in Blood by Automated count3.60-5.00St. [facility] HospitalRandom cortisol measurement Ordered By: Shaun Aviles on 60-42-6198Inacfudm [Mass/Vol]6.9 ug/dLSt. Vincent HospitalComment on above:[facility] Laboratory automotive generator repairer and method:LIYA UNICEL DXI, POLYCLONAL ANTIBODY CORTISOL ASSAY.Reference range: AM 6 - 24 ug/dl PM <10 ug/dlSerum globulin measurement by calculation (mass/volume)Ordered By: Shaun Aviles on 98-67-8309Ozatuoas (S) [Mass/Vol]2.8 g/dL NormalSt. Vincent HospitalComment on above:Performed By: #### MARCIA, TSH3, [id number], LIPID, CMP, T4F #### [address] [address] USASerum or plasma albumin/globulin mass ratioOrdered By: Shaun Aviles on 16-89-5659Dluswcd/Globulin [Mass ratio]1.5 {ratio}NormalSt. Vincent HospitalComment on above:Performed By: #### MARCIA, TSH3, [id number], LIPID, CMP, T4F #### [facility] [address] [place] [address] USAAlbumin/Globulin [Mass ratio]Serum or plasma albumin/globulin mass ratioGreen Cross Hospitalerum or plasma anion gap determinationOrdered By: Shaun Aviles on 17-00-1550Rovai gap [Moles/Vol] 10.5 mmol/LNormal6.0-15.0St. [facility] HospitalComment on above: Performed By: #### MARCIA, TSH3, [id number], LIPID, CMP, T4F #### [facility] [address] [place] [address] USAAnion gap [Moles/Vol]Serum or plasma anion gap determination6.0-15.0Green Cross Hospitalerum or plasma high density lipoprotein (HDL) cholesterol measurementOrdered By: Shaun Aviles on 09-92-6253Gpzemdbwbvz in HDL [Mass/Vol]46 mg/zYFjyvvp15-08JavpaovztSt. Vincent HospitalComment on above:HDL CHOL ATP-III CLASSIFICATION Cardiovascular RiskHDL > or equal to 60 mg/dL LOWHDL < 40 mg/dL HIGHResult Comment: HDL CHOL ATP-III CLASSIFICATION Cardiovascular Risk HDL > or equal to 60 mg/dL LOW HDL < 40 mg/dL HIGHPerformed By: #### MARCIA, TSH3, [id number], LIPID, CMP, T4F #### [facility] [address] [place] [address] USASerum or plasma total cholesterol/high density lipoprotein (HDL) cholesterol mass ratOrdered By: Shaun Aviles on 08-05-2024 Cholesterol.total/Cholesterol in HDL [Mass ratio]3.3 {ratio}Normal<5.0St. Vincent HospitalComment on above:Performed By: #### MARCIA, TSH3, [id number], LIPID, CMP, T4F #### [facility] [address] [place] [address] USACholesterol.total/Cholesterol in HDL [Mass ratio]Serum or plasma total cholesterol/high density lipoprotein (HDL) cholesterol mass rat<5.0 Green Cross Hospitalodium [Moles/volume] in Serum or PlasmaOrdered By: Shaun Aviles on 43-51-9454Uytpmq [Moles/Vol]139 mmol/YFrmovt520-978ZgtwadqcoSt. Vincent HospitalComment on above:Performed By: #### MARCIA, TSH3, [id number], LIPID, CMP, T4F #### [facility] [address] [place] [id number] USASodium [Moles/Vol]Sodium [Moles/volume] in Serum or Plasma 136-145St. Vincent HospitalThyrotropin [Units/volume] in Serum or PlasmaOrdered By: Shaun Aviles on 08-16-6760ZNK Qn1.32 m[IU]/LNormal0.45-5.33 [facility] HospitalComment on above:Performed By: #### MARCIA, TSH3, [id number], LIPID, CMP, T4F #### [facility] [address] [place] [id number] USATSH QnThyrotropin [Units/volume] in Serum or Plasma 0.45-5.33St. Vincent HospitalThyroxine (T4) free [Mass/volume] in Serum or PlasmaOrdered By: Shaun Aviles on 93-77-9175Ohxg T4 [Mass/Vol]0.90 ng/dL Normal0.61-1.12St. Vincent HospitalComment on above:Performed By: #### MARCIA, TSH3, [id number], LIPID, CMP, T4F #### [facility] [address] [place] [address] USAFree T4 [Mass/Vol]Thyroxine (T4) free [Mass/volume] in Serum or Plasma0.61-1.12St. Vincent HospitalTriglyceride [Mass/volume] in Serum or PlasmaOrdered By: Shaun Aviles on 27-72-9090Yuxuelecbnid [Mass/Vol]76 mg/dL0-149St. Vincent HospitalComment on above:TRIG ATP III CLASSIFICATIONTRIG less than 150 mg/dL NormalTRIG 150-199 mg/dL Borderline highTRIG 200-500 mg/dL High TRIG greater than 500 mg/dL Very highStandard traceable to the Center for Disease Conrtrol and Prevention (CDC) test method.Triglyceride [Mass/Vol]Triglyceride [Mass/volume] in Serum or Plasma 0-St. Vincent HospitalComment on above:TRIG ATP III CLASSIFICATIONTRIG less than 150 mg/dL NormalTRIG 150-199 mg/dL Borderline highTRIG 200-500 mg/dL High TRIG greater than 500 mg/dL Very highStandard traceable to the Center for Disease Conrtrol and Prevention (CDC) test method. Urea nitrogen [Mass/volume] in Serum or PlasmaOrdered By: Shaun Aviles on 55-36-3783Mepm nitrogen [Mass/Vol]13 mg/dLNormal05-01St. Vincent HospitalComment on above:Performed By: #### MARCIA, TSH3, [id number], LIPID, CMP, T4F #### [facility] [address] [place] [address] USAUrea nitrogen [Mass/Vol]Urea nitrogen [Mass/volume] in Serum or Plasma05-01St. Vincent HospitalVitamin D 25 Hydroxy Totalon 85-07-6006Ybcombq D 25 Hydroxy Total33.6 ng/uZGubjji85-518Fll [facility] Physician GroupComment on above:Result Comment: VITAMIN D STATUS 25(OH)VITAMIN D RANGE (ng/mL) Deficient <20 Insufficient 20 to <30 Sufficient 30 to 100 Reference: Monique MF,Tatum NC, Matt TAYLOR, et al. Evaluation,treatment, and prevention of vitamin D deficiency; an Endocrine Society clinical practice guideline. JCEM. 2010; 96(7):1911-30. PERFORMED BY: [facility] [address] [place] [address] PATHOLOGIST [employer] INSTALLER ALBA SCHULTE M.D.Performed By: #### MARCIA, TSH3, [id number], LIPID, CMP, T4F #### [facility] [address] [place] [address] USAVitamin D+Metabolites [Mass/volume] in Serum or Plasma Ordered By: Shaun Aviles on 40-54-2940Hhalqec D+Metabolites [Mass/Vol]33.6 ng/mL 30-100St. Vincent HospitalComment on above:VITAMIN D STATUS 25(OH)VITAMIN D RANGE (ng/mL) Deficient <20 Insufficient 20 to <61Cpxhnkeirh06 to 100Reference: Tatum Bernard, Matt TAYLOR, et al. Evaluation,treatment, and prevention of vitamin D deficiency; an Endocrine Society clinical practice guideline. JCEM. 2010; 96(7):1911-30.Vitamin D+Metabolites [Mass/Vol]Vitamin D+Metabolites [Mass/volume] in Serum or Plasma 30-100St. [facility] HospitalComment on above:VITAMIN D STATUS 25(OH)VITAMIN D RANGE (ng/mL) Deficient <20 Insufficient 20 to <53Ouythciusn88 to 100Reference: Tatum Bernard, Matt TAYLOR, et al. Evaluation,treatment, and prevention of vitamin D deficiency; an Endocrine Society clinical practice guideline. JCEM. 2010; 96(7):1911-30.WBC Auto (Bld) [#/Vol]Ordered By: Shaun Aviles on 94-99-7175FAA (Bld) [#/Vol]Leukocytes [#/volume] in Blood by Automated count3.8-11.6FMercy Health Springfield Regional Medical Center Amphetamine Screen Ql (U)Ordered By: Willie Lambert on 03-54-5796Hnbbzohucgtm Ql (U)Amphetamines screenNegativeSt. Vincent HospitalAmphetamines Ql (U)NegativeNegativeSt. Vincent HospitalBarbiturates [Presence] in Urine by Screen methodOrdered By: Willie Lambert on 21-88-0604Elpcgoporzaf Screen Ql (U)NegativeNegChillicothe VA Medical CenterBarbiturates Screen Ql (U)Barbiturates [Presence] in Urine by Screen methodNegChillicothe VA Medical CenterBenzodiazepines Screen Ql (U)Ordered By: Willie Lambert on 02-65-6100Xuuxzjwkipcifvf Ql (U)NegativeNegChillicothe VA Medical CenterBenzodiazepines Ql (U)Benzodiazepines [Presence] in Urine by Screen method [facility] HospitalBenzoylecgonine [Presence] in Urine by Screen methodOrdered By: Willie Lambert on 06-04-6404Smhikofriqfqqza Screen Ql (U)NegativeNegChillicothe VA Medical CenterBenzoylecgonine Screen Ql (U)Benzoylecgonine [Presence] in Urine by Screen methodNegChillicothe VA Medical CenterCannabinoids [Presence] in Urine by Screen methodOrdered By: Willie Lambert on 65-07-6615Xeieiwrcfdzj Screen Ql (U)PositiveHighNegProMedica Bay Park HospitalComment on above:These are unconfirmed results and should not be used for legal purposes. Drug Cut-Off Concentration: AMPH 1000 ng/mL SENG 200 ng/mL DAVIDA 200 ng/mL COCM 300 ng/mL OP 300 ng/mL PCP 25 ng/mL THC 20 ng/mLCannabinoids Screen Ql (U)Cannabinoids [Presence] in Urine by Screen methodHighNegChillicothe VA Medical CenterComment on above:These are unconfirmed results and should not be used for legal purposes. Drug Cut-Off Concentration: AMPH 1000 ng/mL SENG 200 ng/mL DAVIDA 200 ng/mL COCM 300 ng/mL OP 300 ng/mL PCP 25 ng/mL THC 20 ng/mLDrug Screen,Urineon 13-58-7016Zcytqqqjktw Screen,UrineNegativeNormalNegativeAdventhealth New Smyrna Beach Physician GroupComment on above: Performed By: #### [facility] ####[address] [address]VKLOgbwjgpttih Screen,UrineNegativeNormalNegativeAdventhealth New Smyrna Beach Physician GroupComment on above:Performed By: #### [facility], [facility] [place] ####[address] [address]EMH Benzodiazepines Screen,UrineNegativeNormalNegativeAdventhealth New Smyrna Beach Physician Group Comment on above:Performed By: #### [facility], [facility] [place] ####[address] [address]OKDAzdnbeldedf Screen,UrinePositiveHigh NegativeAdventhealth New Smyrna Beach Physician GroupComment on above:Result Comment: These are unconfirmed results and should not be used for legal purposes. Drug Cut-Off Concentration: AMPH 1000 ng/mL SENG 200 ng/mL DAVIAD 200 ng/mL COCM 300 ng/mL OP 300 ng/mL PCP 25 ng/mL THC 20 ng/mL PERFORMED BY: [facility] [address] [place] [address] PATHOLOGIST [employer]WORK INSTALLER ALBA SCHULTE M.D.Performed By: #### [facility], [facility] ####[place] [address] [facility] [place], [place] [address]YXKQexqwtu Screen,UrineNegativeNormal NegativeThe [facility] Physician [facility] State HospitalComment on above:Performed By: #### [facility] ####[place] [address] [facility] [place], [place] [address]KMP Opiate Screen,UrineNegativeNormalNegativeThe [facility] Physician [facility] State HospitalComment on above:Performed By: #### [facility] ####[place] [address] [facility] [place], [place] [address]NOYFtiltzsabaivd Screen,UrineNegativeNormal NegativeThe [facility] Physician [facility] State HospitalComment on above:Performed By: #### [facility], [facility] [place] ####[place] [address] [facility] [place], [place] [address]PHFRQO ( test) IA.rapid Ql (U)Ordered By: Willie Lambert on 32-48-4720LCV ( test) Ql (U)NegativeSt. Vincent HospitalHCG ( test) Ql (U)Urine human chorionic gonadotropin (hCG) detection by immunoassay St. Vincent HospitalHCG,Urineon 82-48-2009Zcpq HCG ( test) Ql (U)NegativeNormalThe [facility] Physician [facility] State HospitalComment on above:Result Comment: PERFORMED BY: [facility] [address] [place] [address] PATHOLOGIST [employer] INSTALLER ALBA SCHULTE M.D.Performed By: #### [facility], [facility] [place] ####[place] [address] [place] [facility] - morgantonal[place], [place] [address]NZVLbe 42-12-3487CYpoqobnc: [id number] Received: 07/02/24-1158 Status: SOUT Req Num: [id number] Spec Type: Surgical Subm Dr: Willie Lambert MD Tissues: A Small Intestine - Biopsy/Polyp (SM BOWEL BX R/O CELIAC) B Esophagus Biopsy (ESOPHAGEAL BX R/O EOE) Procedures: HE/4, Gross/Micro L4/2 Age/ Patient Sex Location Account Attending Physician Brian Sullivan / [id number] Willie Lambert MD SPEC NUM: [id number] RECD: 07/02/24 STATUS: EDITH MEJIA NUM: [id number] SANTOS: 07/01/[address] [facility] [address]: Willie Lambert MD ENTERED: 07/02/[address] [facility] [address]: SPEC TYPE: Surgical DEPT: S ENTERED BY: [id number] RECV BY: [id number] ORDERED: HE/4, Gross/Micro L4/2 ORDERED: HE/4, Gross/Micro [...] specimen is entirely submitted in cassette B1. Specimen: [id number] Received: 07/02/24 Status: EDITH Clifford Num: [id number] Spec Type: Surgical Subm Dr: Willie Lambert MD Tissues: A Small Intestine - Biopsy/Polyp (SM BOWEL BX R/O CELIAC) B Esophagus Biopsy (ESOPHAGEAL BX R/O EOE) Procedures: HE/4, Gross/Micro L4/2 Patient: Brian Sullivan [id number] (Continued) Specimen: [id number] Received: 07/02/24 (Continued) Signed (signature on file) Lefty Washington MD 07/07/24 1433 Specimen: [id number] Received: 07/02/24 Status: EDITH Clifford Num: [id number] Spec Type: Surgical Subm Dr: Willie Lambert MD Tissues: A Small Intestine - Biopsy/Polyp (SM BOWEL BX R/O CELIAC) B Esophagus Biopsy (ESOPHAGEAL BX R/O EOE) Procedures: Sandip DAHL/Micro L4/2 Patient: Brian Sullivan [id number] (Continued) Specimen: [id number] Received: 07/02/24 (Continued) Microscopic Description A B: Microscopic examination is performed. CPT Codes 65462 x 2 Specimen: [id number] Received: 07/02/24 Status: EDITH Clifford Num: [id number] Spec Type: Surgical Subm Dr: Willie Lambert MD Tissues: A Small Intestine - Biopsy/Polyp (SM BOWEL BX R/O CELIAC) B Esophagus Biopsy (ESOPHAGEAL BX R/O EOE) Procedures: HE/4, Gross/Micro L4/2 Patient: Brian Sullivan [id number] (Continued) Signed (signature on file) Lefty Washington MD 07/07/24 1433Normal The [facility] Physician GroupOpiates [Presence] in Urine by Screen methodOrdered By: Willie Lambert on 53-42-0347Vautyge Screen Ql (U)NegativeNegChillicothe VA Medical CenterOpiates Screen Ql (U)Opiates [Presence] in Urine by Screen methodNegChillicothe VA Medical CenterPhencyclidine Screen Ql (U)Ordered By: Willie Lambert on 32-52-0528Vahvxwlsgbtxo Ql (U)NegativeNegative St. Vincent HospitalPhencyclidine Ql (U)Phencyclidine [Presence] in Urine by Screen methodNegChillicothe VA Medical CenterGiardia lamblia Ag [Presence] in Stool by Immunoassayon 05-19-2024G. lamblia Ag IA Ql (Stl) NegativeNegChillicothe VA Medical CenterComment on above:Performed at: [facility] [id number] Director: Joey Hoyos PhD, Phone: [phone] Panel Informationon 89-22-6659Htpqvoqfjhq difficile (PCR)(LAB)NegativeNEGHenry County Hospital Miscellaneous Test CommentSee commentSt. Vincent HospitalComment on above:Specimen Source: ST - Stool - Stool - 700.100Stool Campylobacter Culture Res 1\R\ Campylobacter Culture\R\ No Campylobacter species isolated.St. Vincent HospitalComment on above:[facility],No Panel InformationOrdered By: Ines Ojeda on 05-19-2024E coli Shiga Toxin EIAGreen Cross Hospitalalmonella/Shigella ScreenSt. Vincent HospitalBasophils Auto (Bld) [#/Vol]on 87-49-2073Ibqubukrp (Bld) [#/Vol]0.0 10 3/uL0.0-0.1FMercy Health Springfield Regional Medical CenterBasophils/100 WBC Auto (Bld)on 37-41-4859Tnxugdrlj/100 WBC (Bld)0.1 %Low0.2-2.0St. [facility] HospitalEosinophils/100 WBC Auto (Bld)on 72-45-5072Uicurshudhn/100 WBC (Bld)0.0 %Low0.9-7.0St. [facility] HospitalErythrocyte distribution width Auto (RBC) [Ratio]on 16-15-1296Lulpzgibgqs distribution width (RBC) [Ratio]12.9 %11.0-15.0[facility] HospitalEstimated glomerular filtration rate (GFR) non- Americanon 86-26-8045VZJ/1.73 sq M.predicted among non-blacks MDRD (S/P/Bld) [Vol rate/Area]mL/min/{1.73_m2}>=60St. Vincent HospitalGlobulin Calc (S) [Mass/Vol]on 00-12-7756Shdvgywa (S) [Mass/Vol]3.7 g/dLSt. Vincent HospitalHCG ( test) IA.rapid Ql (U)on 67-44-4268BVK ( test) Ql (U)NegativeNEGATIVESt. Vincent Hospital Hematocrit Auto (Bld) [Volume fraction]on 43-69-8865Ocwsemzwqd (Bld) [Volume fraction]39.1 %36.0-48.0St. [facility] HospitalHemoglobin [Mass/volume] in Bloodon 32-86-9140Tczaazxqdf (Bld) [Mass/Vol]13.0 g/dL12.0-16.0 [facility] HospitalLaboratory - Chemistry and Chemistry - challengeon 85-56-2474Svdisrr [Mass/Vol]4.3 g/dL3.4-5.0[facility] HospitalALP [Catalytic activity/Vol]126 U/DScqm25-089ZcpdgamazSt. Vincent HospitalALT [Catalytic activity/Vol]20 U/D65-50AikswftaxSt. Vincent HospitalAST [Catalytic activity/Vol]19 U/Q60-76WaprpkpahSt. [facility] Hospital Bilirubin [Mass/Vol]0.6 mg/dL0.2-1.0St[facility] HospitalBilirubin Ql (U)SMALLAbnormalNEGATIVESt. Vincent HospitalCalcium [Mass/Vol] 9.5 mg/dL8.5-10.1FMercy Health Springfield Regional Medical CenterChloride [Moles/Vol]102 mmol/L 98-107St. [facility] HospitalCO2 [Moles/Vol]28.3 mmol/L21.0-32.0 [facility] HospitalCreatinine [Mass/Vol]0.85 mg/dL0.55-1.02 [facility] HospitalGFR/1.73 sq M.predicted MDRD (S/P/Bld) [Vol rate/Area]mL/min/{1.73_m2}>=60St. [facility] HospitalGlucose (U) [Mass/Vol]NegativeNEGATIVESt. Vincent HospitalGlucose [Mass/Vol]90 mg/oI99-595GtnogcdqpSt. Vincent HospitalKetones Ql (U)NegativeNEGATIVE St. [facility] HospitalLipase [Catalytic activity/Vol]36.0 U/L 16.0-77.0St. [facility] HospitalpH (U)6.0 [pH]5.0-9.0St[facility] HospitalPotassium [Moles/Vol]3.4 mmol/LLow3.5-5.1FMercy Health Springfield Regional Medical CenterProtein [Mass/Vol]8.0 g/dL6.4-8.2FMcCullough-Hyde Memorial Hospitalodium [Moles/Vol]141 mmol/Y194-047LacepvqhnGreen Cross Hospitalpecific gravity (U) [Rel density]>=1.735Eruvbghb4.005-1.025St. [facility] HospitalUrea nitrogen [Mass/Vol]7.0 mg/dL7.0-18.0Fire[facility] Medical CenterUrea nitrogen/Creatinine [Mass ratio]8.2 mg/mgSt. Vincent HospitalUrobilinogen Qn (U)0.2 {Mary Ann'U}/dL0.2-1.0St. [facility] HospitalLaboratory - Hematology and Cell countson 05-18-2024 Immature granulocytes/100 WBC (Bld)0.1 %0.0-0.5FMercy Health Springfield Regional Medical Center Laboratory - Specimen informationon 52-25-0038Rwkzernzxm (U)CLEARCLEARFMercy Health Springfield Regional Medical CenterColor (U)YELLOWYELLOWSt. [facility] Hospital [facility] - Urinalysison 47-00-2235Skdozjgkw esterase Test strip Ql (U)Negative NEGATIVESt. Vincent HospitalNitrite Ql (U)NegativeNEGATIVESt. Vincent HospitalProtein Ql (U)NegativeNEG/TRACESt. Vincent HospitalLeukocytes [#/volume] corrected for nucleated erythrocytes in Blood by Automated counon 14-56-1121ZSR corrected for nucl RBC Auto (Bld) [#/Vol]7.8 10 3/uL4.0-11.0[facility] HospitalLymphocytes Auto (Bld) [#/Vol]on 18-68-9241Axdmrebhxjj (Bld) [#/Vol]2.0 10 3/uL1.2-3.8[facility] HospitalLymphocytes/100 WBC Auto (Bld)on 31-39-4985Ojsfmouknwu/100 WBC (Bld)25.3 % 20.5-60.0[facility] CenterH Auto (RBC) [Entitic mass]on 26-85-2680FNJ (RBC) [Entitic mass]27.8 pg26.7-34.0[facility] HospitalMCHC Auto (RBC) [Mass/Vol]on 70-36-4259HZMK (RBC) [Mass/Vol]33.2 g/dL 29.9-35.2FMercy Health Springfield Regional Medical CenterMCV Auto (RBC) [Entitic vol]on 27-86-3420AYQ (RBC) [Entitic vol]83.5 fL81.0-99.0[facility] HospitalMonocytes Auto (Bld) [#/Vol]on 02-93-6111Pfdcwprbe (Bld) [#/Vol]0.5 10 3/uL0.3-0.8[facility] HospitalMonocytes/100 WBC Auto (Bld)on 08-76-3281Gshmygfad/100 WBC (Bld)6.3 %1.7-12.0[facility] Neutrophils Auto (Bld) [#/Vol]on 51-41-9275Fmoaoemgipn (Bld) [#/Vol]5.3 10 3/uL 1.4-6.5FMercy Health Springfield Regional Medical CenterNeutrophils/100 WBC Auto (Bld)on 54-44-1050Pslgsyfxqus/100 WBC (Bld)68.2 %43.0-75.0[facility] HospitalNo Panel Informationon 24-60-0067Cdjzomspkek # (Auto)0.0 10 3/uL0.0-0.7 [facility] HospitalImmature Granulocyte # (Auto)0.01 10 3/uL 0.00-0.03[facility] HospitalUrine Microscopic ReviewNOSt. Vincent HospitalUrine Occult BloodNegativeNEGATIVESt. Vincent HospitalPlatelet mean volume Auto (Bld) [Entitic vol]on 55-17-0437Kriijumg mean volume (Bld) [Entitic vol]9.2 fLLow9.5-13.5FMercy Health Springfield Regional Medical CenterPlatelets Auto (Bld) [#/Vol]on 84-16-0141Vwiahrgah (Bld) [#/Vol]293 10 3/aR668-735YfixerwsfSt. Vincent HospitalRBC Auto (Bld) [#/Vol]on 05-18-2024 RBC (Bld) [#/Vol]4.68 10 6/uL4.20-5.40[facility] Cross Hospitalerum or plasma albumin/globulin mass ratioon 20-74-7839Aolmqnm/Globulin [Mass ratio]1.2 {ratio}[facility] Cross Hospitalerum or plasma anion gap determination on 15-81-5179Ldcop gap [Moles/Vol]14.1 mmol/LFMercy Health Springfield Regional Medical Center Alanine aminotransferase [Enzymatic activity/volume] in Serum or PlasmaOrdered By: Gail Lawrence on 08-13-5287TUW [Catalytic activity/Vol]9 U/L7-52St. [facility] HospitalAspartate aminotransferase [Enzymatic activity/volume] in Serum or PlasmaOrdered By: Gail Lawrence on 58-24-7067DQI [Catalytic activity/Vol]18 U/V64-67GvvdppcbaSt. Vincent HospitalBasophils Auto (Bld) [#/Vol]Ordered By: Gail Lawrence on 11-69-9262Xliiqnuzx (Bld) [#/Vol]0.0 10*3/uL0.0-0.2FMercy Health Springfield Regional Medical CenterBasophils/100 WBC Auto (Bld) Ordered By: Gail Lawrence on 76-28-1033Ydfnnrcfy/100 WBC (Bld)0.1 %.[facility] HospitalEosinophils Auto (Bld) [#/Vol]Ordered By: Gail Lawrence on 57-75-7498Lbjaytijpqn (Bld) [#/Vol]0.0 10*3/uL0.0-0.45St. [facility] HospitalEosinophils/100 WBC Auto (Bld)Ordered By: Gail Lawrence on 48-97-2718Tvsibuyhutt/100 WBC (Bld)0.0 %.[facility] Erythrocyte distribution width Auto (RBC) [Ratio]Ordered By: Gail Lawrence on 13-13-4646Mgpvmwxcbpd distribution width (RBC) [Ratio]14.1 %11.9-15.3FMercy Health Springfield Regional Medical CenterHematocrit Auto (Bld) [Volume fraction]Ordered By: Gail Lawrence on 32-16-5613Nfyckfzulu (Bld) [Volume fraction]37.9 %34.0-46.4FMercy Health Springfield Regional Medical CenterHemoglobin [Mass/volume] in BloodOrdered By: Gail Lawrence on 01-47-5497Fzzatwjgki (Bld) [Mass/Vol]12.6 g/dL11.8-15.4FMercy Health Springfield Regional Medical CenterLeukocytes [#/volume] corrected for nucleated erythrocytes in Blood by Automated counOrdered By: Gail Lawrence on 12-27-2023 WBC corrected for nucl RBC Auto (Bld) [#/Vol]6.5 10*3/uL3.8-11.6FMercy Health Springfield Regional Medical CenterLymphocytes Auto (Bld) [#/Vol]Ordered By: Gail Lawrence on 45-05-7554Ypzsepyawuv (Bld) [#/Vol]1.9 10*3/uL1.00-4.8St. [facility] HospitalLymphocytes/100 WBC Auto (Bld)Ordered By: Gail Lawrence on 28-47-2816Ryzqtfvhber/100 WBC (Bld)29.2 %.[facility] Auto (RBC) [Entitic mass]Ordered By: Gail Lawrence on 12-56-8666TJJ (RBC) [Entitic mass]26.8 pg24.7-34.3FMercy Health Springfield Regional Medical CenterMCHC Auto (RBC) [Mass/Vol]Ordered By: Gail Lawrence on 20-58-5537DQUV (RBC) [Mass/Vol]33.3 g/dL32.0-35.0[facility] HospitalMCV Auto (RBC) [Entitic vol] Ordered By: Gail Lawrence on 23-50-7874YTG (RBC) [Entitic vol]80.5 uL63-808 [facility] HospitalMonocytes Auto (Bld) [#/Vol]Ordered By: Gail Lawrence on 77-02-0382Gopapasev (Bld) [#/Vol]0.4 10*3/uL0.0-0.8[facility] HospitalMonocytes/100 WBC Auto (Bld)Ordered By: Gail Lawrence on 49-43-1706Nyxmldnni/100 WBC (Bld)5.7 %.[facility] Neutrophils Auto (Bld) [#/Vol]Ordered By: Gail Lawrence on 12-27-2023 Neutrophils (Bld) [#/Vol]4.2 10*3/uL1.8-7.7FMercy Health Springfield Regional Medical Center Neutrophils/100 WBC Auto (Bld)Ordered By: Gail Lawrence on 12-27-2023 Neutrophils/100 WBC (Bld)65.0 %.[facility] HospitalNucleated erythrocytes [Presence] in Blood by Automated countOrdered By: Gail Lawrence on 38-67-6376Gtzepidic RBC Auto Ql (Bld)0.0 /100{WBC}0-0.5FMercy Health Springfield Regional Medical CenterPlatelet mean volume Auto (Bld) [Entitic vol]Ordered By: Gail Lawrence on 74-19-5393Ztouhtqx mean volume (Bld) [Entitic vol]6.7 fL6.3-10.7 [facility] HospitalPlatelets Auto (Bld) [#/Vol]Ordered By: Gail Lawrence on 36-91-1733Xmhtozgpv (Bld) [#/Vol]284 10*3/tS453-850QofmqffjoSt. Vincent HospitalRBC Auto (Bld) [#/Vol]Ordered By: Gail Lawrence on 50-32-3453JUB (Bld) [#/Vol]4.71 10*6/uL3.60-5.00St. [facility] HospitalTriglyceride [Mass/volume] in Serum or PlasmaOrdered By: Gail Lawrence on 43-60-9695Lahkherjwdws [Mass/Vol]78 mg/sL19-322CwxixlqslSt. Vincent HospitalComment on above:TRIG ATP III CLASSIFICATIONTRIG less than 150 mg/dL NormalTRIG 150-199 mg/dL Borderline highTRIG 200-500 mg/dL High TRIG greater than 500 mg/dL Very highStandard traceable to the Center for Disease Conrtrol and Prevention (CDC) test method.WBC Auto (Bld) [#/Vol]Ordered By: Gail Lawrence on 80-44-0856TLP (Bld) [#/Vol]6.5 10*3/uL3.8-11.6FMercy Health Springfield Regional Medical CenterAmphetamine Screen Ql (U)Ordered By: Willie Lambert on 08-22-2023 Amphetamines Ql (U)NegativeNegativeSt. Vincent HospitalBarbiturates [Presence] in Urine by Screen methodOrdered By: Willie Lambert on 08-22-2023 Barbiturates Screen Ql (U)NegativeNegativeSt. [facility] Hospital Benzodiazepines Screen Ql (U)Ordered By: Willie Lambert on 08-22-2023 Benzodiazepines Ql (U)NegativeNegChillicothe VA Medical Center Benzoylecgonine [Presence] in Urine by Screen methodOrdered By: Willie Lambert on 58-51-6167Mpvypokxzuyjdnp Screen Ql (U)NegativeNegativeSt. Vincent HospitalCannabinoids [Presence] in Urine by Screen methodOrdered By: Willie Lambert on 95-78-1993Uvgbxvuvxvoj Screen Ql (U)PositiveNegChillicothe VA Medical CenterComment on above:These are unconfirmed results and should not be used for legal purposes. Drug Cut-Off Concentration: AMPH 1000 ng/mL SENG 200 ng/mL DAVIDA 200 ng/mL COCM 300 ng/mL OP 300 ng/mL PCP 25 ng/mL THC 20 ng/mLHCG ( test) IA.rapid Ql (U)Ordered By: Willie Lambert on 08-22-2023 HCG ( test) Ql (U)NegativeSt. Vincent HospitalOpiates [Presence] in Urine by Screen methodOrdered By: Willie Lambert on 08-22-2023 Opiates Screen Ql (U)NegativeNegChillicothe VA Medical Center Phencyclidine Screen Ql (U)Ordered By: Willie Lambert on 40-90-3861Tvhurtpbmehbu Ql (U)NegativeNegChillicothe VA Medical CenterC reactive protein [Mass/volume] in Serum or PlasmaOrdered By: Janak Stanton on 05-84-6755PSM [Mass/Vol]< 0.5 mg/dL0.0-0.5FMercy Health Springfield Regional Medical CenterElastase.pancreatic [Mass/mass] in StoolOrdered By: Janak Stanton on 83-96-2510Zdduhmnb.pancreatic (Stl) [Mass/Mass]449>200St. Vincent HospitalComment on above: Result Units: ug Elast./g Severe Pancreatic Insufficiency: <100 Moderate Pancreatic Insufficiency: 100 - 200 Normal: >200Performed at: [facility] - [facility] [address] [id number] Director: Viet Taylor MD, Phone: [phone] sedimentation rate by Photometric method Ordered By: Janak Stanton on 21-03-4406GJK Photometric method (Bld) [Velocity] 16 mm/hr0-19St. [facility] HospitalHIV 1 and HIV-2 antibody assay with HIV-1 p24 antigen detectionOrdered By: Janak Stanton on 27-00-6106GIS 1+2 Ab+HIV1 p24 Ag IA QlNon-ReactiveNon ReactiveSt. Vincent Hospital Comment on above:HIV NegativeHIV-1/HIV-2 antibodies and HIV-1 p24 antigen were NOTdetected. There is no laboratory evidence of HIV infection.Performed at: [facility] [id number] Director: Joey Hoyos PhD, Phone: [phone] [Mass/volume] in Serum or PlasmaOrdered By: Janak Stanton on 44-94-8471AtW [Mass/Vol]180 mg/hV57-959Kjtranbjk[address] [place], [place] [address]Comment on above:Performed at: [facility] [address] [id number] Director: Joey Hoyos PhD, Phone: [phone] No Panel InformationOrdered By: Janak Stanton on 39-69-8991Ghpqpxaoey IgA AntibodyNegativeNegativeGreen Cross Hospitalerum gliadin peptide IgA antibody assay (units/volume)Ordered By: Janak Stanton on 45-00-3173Kfqdssy peptide IgA Qn (S)9 units0-[address] [place], [place] [address]Comment on above: Negative 0 - 19 Weak Positive 20 - 30 Moderate to Strong Positive >30Serum gliadin peptide IgG antibody assay (units/volume)Ordered By: Janak Stanton on 52-05-2307Jotfkth peptide IgG Qn (S)4 units0-[address] [place] [address] Comment on above:Negative 0 - 19 Weak Positive 20 - 30 Moderate to Strong Positive >30Serum tissue transglutaminase (tTG) IgA antibody assay (units/volume)Ordered By: Janak Stanton on 38-82-9121mRN IgA Qn (S)<2 U/mL0-3 [facility] HospitalComment on above:Negative 0 - 3 Weak Positive 4 - 10 Positive >10 Tissue Transglutaminase (tTG) has been identified as the endomysial antigen. Studies have demonstr- ated that endomysial IgA antibodies have over 99% specificity for gluten sensitive enteropathy.Serum tissue transglutaminase (tTG) IgG antibody assay (units/volume)Ordered By: Janak Stanton on 01-45-9022bYA IgG Qn (S)4 U/mL0-5FMercy Health Springfield Regional Medical Center Comment on above:Negative 0 - 5 Weak Positive 6 - 9 Positive >9Stool bacteria identification by cultureOrdered By: Janak Stanton on 50-24-0731Yziuvgvs identified Cx Nom (Stl)[facility]. [facility] HospitalThyrotropin [Units/volume] in Serum or PlasmaOrdered By: Janak Stanton on 70-43-6643XUU Qn 0.57 m[IU]/L0.45-5.33St. Vincent HospitalC Urineon 07-03-2023 Bacteria identified Cx Nom (U)Microbiology PROCEDURE: Urine Culture [R1] SOURCE: U CleanCatch BODY SITE: COLLECTED DATE/TIME: 07/01/2023 18:14 EDT RECEIVED DATE/TIME: 07/01/2023 22:20 EDT START DATE/TIME: 07/01/2023 22:20 EDT FREE TEXT SOURCE: Kemi Castillo, Mirna Mcmullen M.D., Mirna [place] FINAL REPORTS Final Report [] Verified Date/Time: 07/03/2023 11:43 EDT 1,000 cfu/ml Mixed skin contaminants Performing Locations R1: This test was performed at: [facility], [address] [place] [address], [facility] , , PqasykHnlyipUniversity Hospitals Parma Medical CenterComment on above:Performed By: #### [id number] #### [facility] [address] [place] [address]Tkjeqvyik Instructionson 75-17-8498Gurhqljux Instructions [id number]#1.00CD:[address] [place], [place] [address]Outside Recordson 57-31-6168Gbbtkzj Records [id number]#1.00CD:127[facility] Medical CenterUS Pelvis Non-OB Completeon 74-84-6964BG Pelvis Non-OB CompleteExam Date/Time: 07/01/2023 19:57 EDT Reason for Exam: [...] NAN Technologist: TEDDY Technical Comments Transabdominal Ultrasound PerformedNormalCleveland Clinic Mentor HospitalAuto Diffon 61-66-3000Evdndqzio/100 WBC (Bld)0.2 %Normal0.0-2.0[facility] Comment on above:Order Comment: Order Added by Discern Expert.Performed By: #### [id number], 1814006, [id number], [id number] #### [facility] [address], [place] [address]Pdblcmdia/Leukocytes Auto (Bld) [Pure # fraction]0.0 E9/LNormal 0.0-0.2Fisher Medstar Harbor HospitalComment on above:Order Comment: Order Added by Sal Expert.Performed By: #### [id number], 6339259, 5957367, [id number] #### [facility] [address], [place] [address]Majfivmhsxz/100 WBC (Bld)0.0 %Normal0.0-8.0[facility] HospitalComment on above:Order Comment: Order Added by Discern Expert.Performed By: #### [id number], 5699814, 9480549, [id number] #### [facility] [address] [place] [address] 17026Uwmnbnsaawg/Leukocytes Auto (Bld) [Pure # fraction]0.0 E9/L Normal0.0-0.5FKettering Health SpringfieldComment on above:Order Comment: Order Added by Discern Expert.Performed By: #### [id number], 8018984, 5459298, [id number] #### [facility] [address] [place] [address] 259[address]Hcvkpgdjolk/100 WBC (Bld)16.2 %Tyrkos55.0-50.0[facility] HospitalComment on above:Order Comment: Order Added by Discern Expert. Performed By: #### [id number], 3898092, 4145778, [id number] #### [facility] [address] [place] [address]Culijgjchip/Leukocytes Auto (Bld) [Pure # fraction]1.5 E9/L Normal1.0-4.0[facility] HospitalComment on above:Order Comment: Order Added by Discern Expert.Performed By: #### [id number], 4082063, 7941471, 82704884 #### [facility] [address] [place] [address] 51053Eobbmitco/100 WBC (Bld)6.9 %Normal4.0-14.0[facility] HospitalComment on above:Order Comment: Order Added by Discern Expert.Performed By: #### 4287588, 0424211, 8373019, 88975322 #### [facility] [address] [place] [address] 62520Uhyhzyfqv/Leukocytes Auto (Bld) [Pure # fraction]0.7 E9/LNormal 0.2-1.0[facility] HospitalComment on above:Order Comment: Order Added by Discern Expert.Performed By: #### 9120073, 5018623, 2692471, 84376120 #### [facility] [address] [place] [address] 13449Hevvqropegv/100 WBC (Bld)76.7 %High36.0-75.0[facility] HospitalComment on above:Order Comment: Order Added by Discern Expert. Performed By: #### 1996331, 5841434, 4646017, [id number] #### [facility] [address], [place] [address]Ldmincogmww/Leukocytes Auto (Bld) [Pure # fraction]7.2 E9/L Normal2.0-7.5FKettering Health SpringfieldComment on above:Order Comment: Order Added by Discern Expert.Performed By: #### 5881756, 4621239, 6192202, [id number] #### [facility] [address] [place] [address] 45762ZGWmh 74-08-7740Osxqldakfz [Mass/Vol]0.7 mg/dLNormal0.5-1.3 [facility] HospitalComment on above:Performed By: #### 1665308, 5783390, 5687964, [id number] #### [facility] [address], [place] [address]Fxoq nitrogen [Mass/Vol]9 mg/dLNormal5-21[facility] HospitalComment on above:Performed By: #### 1366081, 3939729, 3416568, 57860764 #### [facility] [address], [place] [address]Wplv nitrogen/Creatinine [Mass ratio]13 No AgyvdTtwbxo02-37 [facility] HospitalComment on above:Performed By: #### 9192449, 8176546, 7790288, 40105980 #### [facility] [address] [place] [address] 49032Oxakf gap [Moles/Vol]5 mmol/LLow6-16[facility] Comment on above:Performed By: #### 2286298, 8398525, 5519235, 20227165 #### [facility] [address] [place] [address] 80225Hjcdjig [Mass/Vol]8.6 mg/dLLow8.9-11.1FKettering Health SpringfieldComment on above:Performed By: #### 3990846, 3942350, 3098749, 15727465 #### [facility] [address] [place] [address] 23414Yzpmmyyk [Moles/Vol]112 mmol/DUaqg311-429XoboqdCleveland Clinic Mentor HospitalComment on above:Performed By: #### 2943653, 0681466, 9734333, 21491902 #### [facility] [address] [place] [address] 29562LI1 [Moles/Vol]27 mmol/ZHsldzx92-70VfvwokCleveland Clinic Mentor Hospital Comment on above:Performed By: #### 8180241, 1159565, 9399994, 45494789 #### [facility] [address] [place] [address] 50054Wwxrvpk [Mass/Vol]120 mg/hVFjbvcu33-912HrtcnzCleveland Clinic Mentor HospitalComment on above:Result Comment: If this glucose result represents a fasting glucose, interpretation should refer tothe following reference range: 55-99 mg/dLPerformed By: #### 0216093, 3426043, 9138855, 60468232 #### [facility] [address] [place] [address] 46356Gcqtdzspo [Moles/Vol]3.8 mmol/LNormal3.5-5.3FKettering Health SpringfieldComment on above:Performed By: #### 7640771, 6996751, 4436904, 01792220 #### [facility] [address] [place] [address] 57560Vkgotv [Moles/Vol]140 mmol/VLsnbqi893-470OpmnduCleveland Clinic Mentor HospitalComment on above:Performed By: #### 1217138, 9300230, 7530074, 41713246 #### [facility] [address] [place] [address]99[address]SDD w/ Auto Diffon 48-56-9538Udnnwxnbuvl distribution width (RBC) [Ratio]14.8 %High10.9-14.2FKettering Health SpringfieldComment on above: Performed By: #### 9690165, 8399611, 3944012, 54717812 #### [facility] [address] [place] [address] 10935Bpisuynkem (Bld) [Volume fraction]38.0 %Lqealf66.0-46.0[facility] HospitalComment on above:Performed By: #### 8682397, 8720414, 9326641, 43037729 #### [facility] [address] [place] [address] 70845Qlmktfhwgr (Bld) [Mass/Vol]12.8 g/mHBidrge23.0-16.0[facility] HospitalComment on above:Performed By: #### 0630686, 0597756, 3664366, 18280343 #### [facility] [address] [place] [address] 19625TDX (RBC) [Entitic mass]27.5 ycCxsbqi49.0-34.0[facility] HospitalComment on above:Performed By: #### 0328270, 4012675, 8643637, 85353184 #### [facility] [address] [place] [address] 50828XIQZ (RBC) [Mass/Vol]33.8 g/eHPmvvyn64.4-36.0[facility] HospitalComment on above:Performed By: #### 7414435, 2155707, 0311077, 57834355 #### [facility] [address] [place] [address] 33868UIM (RBC) [Entitic vol]81.3 kEUsaknw48.0-100.0[facility] HospitalComment on above:Performed By: #### 7811936, 4659463, 9088533, 73547660 #### [facility] [address], [place] [address]Nqalhiht mean volume (Bld) [Entitic vol]6.8 fLNormal6.4-10.8 [facility] HospitalComment on above:Performed By: #### 7884633, 2713162, 3089612, 77807762 #### [facility] [address], [place] [address]Ayivvnnum (Bld) [#/Vol]240.0 E9/UUtvjch065.0-500.0[facility] HospitalComment on above:Performed By: #### 4207262, 3856700, 2072966, 01495567 #### [facility] [address] [place] [address] 21042RYD (Bld) [#/Vol]4.7 E12/LNormal4.3-5.9[facility] HospitalComment on above:Performed By: #### 2602414, 2121275, 0977513, 62958306 #### [facility] [address] [place] [address] 059[address]HDV corrected for nucl RBC Auto (Bld) [#/Vol]9.4 E9/LNormal 4.0-11.0[facility] HospitalComment on above:Performed By: #### 9533207, 6504497, 7541660, 24006644 #### [facility] [address] [place] [address] 16169KKZTCKCPHLgbvyzy By: SYSTEM SYSTEM on 69-71-7226Hcgnr gap [Moles/Vol]5 mmol/LLow6 - 16 mEq/LFTMC RemisolCalcium [Mass/Vol]8.6 mg/dLLow8.9 - 11.1 mg/dLFTMC RemisolChloride [Moles/Vol]112 mmol/BXtwk615 - 111 mmol/LFTMC RemisolCO2 [Moles/Vol]27 mmol/TJoesqy58 - 31 mmol/LFTMC RemisolCreatinine [Mass/Vol]0.7 mg/dLNormal0.5 - 1.3 mg/dLFTMC RemisolGFR/1.73 sq M.predicted among non-blacks MDRD (S/P/Bld) [Vol rate/Area]123 mL/min/1.73 e4Kzkiom >=59mL/min/1.73 m2[facility] Chem SGlucose [Mass/Vol]120 mg/gOGxryeg95 - 199 mg/dLFTMC RemisolPotassium [Moles/Vol]3.8 mmol/LNormal3.5 - 5.3 mmol/LFTMC RemisolSodium [Moles/Vol]140 mmol/EXvkygc526 - 145 mmol/LFTMC RemisolUrea nitrogen [Mass/Vol]9 mg/dLNormal5 - 21 mg/dL[facility] RemisolUrea nitrogen/Creatinine [Mass ratio]13 mg/pmJkjtvv33 - 20[facility] RemisolConsent for Treatmenton 31-03-0728Evjgmgm for [id number]#[id number]:127NormalTriHealth [facility] Clinical Summaryon 35-70-2323LK Clinical Summary [place] [address] ED Clinical Summary Person Information Name: BRIAN [facility]ULL[facility] Age: 27 Years : 1995 Sex: Female Language: Filipino PCP: SHWETA GONZALEZ Marital Status: Single Visit [...] 07/01/2023 21:05:09 07/01/2023 21:05:09 07/01/2023 21:05:09 ADDRESS: [address] [place] [phone] PHYS DOC NOTES: Addendum by Kendrick Zacarias MD on July 01, 2023 20:41:03 EDT MEDICAL INFORMATION: Prescriptions Given: New Medications [facility], [address] [place] [id number], [phone] ondansetron (Zofran ODT 4 mg Tab-Dis) 1 Tablets By Mouth every 8 hours. Refills: 0. Printed Prescriptions acetaminophen-oxycodone (Percocet 5 mg-325 mg oral tablet) 1 Tablets By Mouth every 6 hours. Refills: 0. PATIENT EDUCATION INFORMATION: Instructions: Pelvic Pain, Female, Iziu-lh-Htex Follow up: With: Address: When: [facility], [address] [place] [address] [place] [address] [facility] (1) In 3 days 07/04/2023 Comments: Call the office first thing Sunday morning With: Address: When: SHWETA GONZALEZ In 3 days DIAGNOSIS: 1:Pelvic painNormalFisher James Medical CenterED Note-Nursingon 04-84-2283LU Note-Nursingat this time pt states she wishes to wait in the waiting room for her ride. pt states she did not drive. this nurse states pt is unable to drive d/t medication given per dec. pt verbalized understanding.[facility] CenterED Note-Physicianon 95-53-0511EG Note-PhysicianBasic Information Time Seen: Mirna Mcmullen M.D. 07/01/2023 17:57 Chief Complaint Pt reports abd pain for one week. Pt went to [place] [facility] 2 days ago, given 2 ABX [...] She was seen 3 days ago at [facility] and CAT scan done. She was diagnosed with colitis and on Cipro and Flagyl given. The patient states she is getting worse. States she went back to [facility], she thinks yesterday and they did [...] getting an ultrasound of the pelvis at [facility]. The patient states she had temperature of 104 earlier. She reports some generalized body ache. The patientdenies any diarrhea. Reports nausea but no vomiting. [...] and Complexity of Problems Differential Diagnosis: [] [facility] Data External documents reviewed: [] My EKG interpretation: [] My CT interpretation: [] My X-ray interpretation: [] My Ultrasound interpretation: [] Decision rules/scores evaluated: [] Discussed with: [] Treatment and Disposition ED Course: Presented with left pelvic pain. She has been seen at [facility] twice. The urinepregnancy is negative. The urine shows no infection. [...] CBC w/ Auto Diff Rapid COVID Antigen ([facility] U Beta Hcg Qual UA With Cult [...] 18:14:00) UA Leuk Est (more content not included)...[facility] Comment on above:Result Comment: Electronically Signed By: Rell DUGAN, Kendrick\.br\Date and Time Signed: 07/01/23 20:43 EDTED Patient Education Noteon 66-49-5910HU Patient Education NoteObstetrics and Gynecology Pelvic Pain, Female Pelvic pain [...] Follow these instructions at home: ? Take aohp-mpr-gfudpti and prescription medicines only as told by [...] away. Call your local emergency services (911 inthe [place] ? Do not wait to see [...] Reviewed: 01/31/2022 Elsevier Patient Education ? 2022 [employer].[facility] ED Patient Summaryon [id number] Patient Summary [address] [address] Patient Discharge Instructions Person Information Name: BRIAN SULLIVAN Age: 27 Years Arrival Date: 07/01/2023 17:48:54 Discharge Diagnosis: 1:Pelvic pain Primary Care Physician: SHWETA GONZALEZ Provider Information Primary Provider: Mirna Mcmullen M.D. Advanced Coagulating Bath Operator:None The exam and treatment you received in the Emergency Department were for an urgent problem and are not intended as complete care. It is important that you follow up with a doctor, nurse practitioner,or physician?s bar assistant for ongoing care. If your symptoms [...] Follow-up Instructions: With: Address: When: [facility], [address] [place] [address] , [place] [address] Business (1) In 3 days 07/04/2023 Comments: Call the office first thing Sunday morning With: Address: When: SHWETA GONZALEZ In 3 days In the event that this physician does not participate in your insurance network, please consult with your insurance company to find a nearby participating provider. Patient Education Materials: Pelvic Pain, Female, Wywv-bq-Hsru A MESSAGE TO ALL PATIENTS REGARDING OPIOIDS PRESCRIPTION OPIOIDS: WHAT YOU NEED TO KNOW Prescription opioids can be used to help relieve qidryase-uw-xhnxed pain and are often prescribed following a [...] and have fewer risks and side effects. Optionsmay include: ? Pain relievers such as acetaminophen, [...] unused prescription opioids: Find your community drug take- back program or [employer] mail-back program, or flush them down the toilet, following guidance from the Food and Drug Administration (www.fda.gov/Drugs/ResourcesForYou). ? Visit www.cdc.gov/drugoverdose to learn about the risks of opioids abuse and overdose. ? If you believe you may be struggling with addiction, tell your hea (more content not included)...[facility] CenterHEMATOLOGYOrdered By: SYSTEM SYSTEM on 82-33-0944Kkzsoegil/100 WBC (Bld)0.2 %Normal0.0 - 2.0 %[facility] HemeAutoSSBasophils/Leukocytes Auto (Bld) [Pure # fraction]0.0 E9/LNormal0.0 - 0.2 E9/LFTMC HemeAutoSSEosinophils/100 WBC (Bld)0.0 %Normal0.0 - 8.0 %[facility] HemeAutoSSEosinophils/Leukocytes Auto (Bld) [Pure # fraction]0.0 E9/LNormal0.0 - 0.5 E9/LFTMC HemeAutoSSLymphocytes/100 WBC (Bld)16.2 %Vavnzz58.0 - 50.0 %[facility] HemeAutoSSLymphocytes/Leukocytes Auto (Bld) [Pure # fraction]1.5 E9/LNormal1.0 - 4.0 E9/LFTMC HemeAutoSSMonocytes/100 WBC (Bld)6.9 %Normal4.0 - 14.0 %[facility] HemeAutoSSMonocytes/Leukocytes Auto (Bld) [Pure # fraction]0.7 E9/LNormal0.2 - 1.0 E9/LFTMC HemeAutoSSNeutrophils/100 WBC (Bld)76.7 %High36.0 - 75.0 %[facility] HemeAutoSSNeutrophils/Leukocytes Auto (Bld) [Pure # fraction]7.2 E9/LNormal2.0 - 7.5 E9/LFTMC HemeAutoSSHEMATOLOGYOrdered By: Cisco Haro on 07-01-2023 Erythrocyte distribution width (RBC) [Ratio]14.8 %High10.9 - 14.2 %[facility] HemeAutoSSHematocrit (Bld) [Volume fraction]38.0 %Ybsxrh14.0 - 46.0 %[facility] HemeAutoSSHemoglobin (Bld) [Mass/Vol]12.8 g/gALhklwl80.0 - 16.0 gm/dLFTMC HemeAutoSSMCH (RBC) [Entitic mass]27.5 veKbwgfk19.0 - 34.0 pgFTMC HemeAutoSSMCHC (RBC) [Mass/Vol]33.8 g/hGVbolqc92.4 - 36.0 gm/dLFTMC HemeAutoSSMCV (RBC) [Entitic vol]81.3 dPZdpbbw65.0 - 100.0 fLFTMC HemeAutoSSPlatelet mean volume (Bld) [Entitic vol]6.8 fLNormal6.4 - 10.8 fLFTMC HemeAutoSSPlatelets (Bld) [#/Vol]240.0 E9/ERavnnu014.0 - 500.0 E9/LFTMC HemeAutoSSRBC (Bld) [#/Vol]4.7 E12/LNormal4.3 - 5.9 E12/LFTMC HemeAutoSSWBC corrected for nucl RBC Auto (Bld) [#/Vol]9.4 E9/LNormal4.0 - 11.0 E9/LFTMC HemeAutoSSMICRO OTHER TESTSOrdered By: Lambert Clayton on 60-03-8447Apygj COV Int NEG CtlPass (07/01/23 6:41 PM)NormalFTMC Man SeroRapid COV Int POS CtlPass (07/01/23 6:41 PM)NormalFT Man SeroSARS-CoV+SARS-CoV-2 (COVID-19) Ag IA.rapid Ql (Resp)Not Detected (07/01/23 6:41 PM)NormalNot DetectedMEM[facility] Man SeroRapid COVID Antigen (FT)on 84-06-9540Vsnyf COV Int NEG CtlPassNoEast Liverpool City HospitalComment on above:Performed By: #### [id number] #### Abdulkadir [facility] [address], [place] [address]Xmazp COV Int POS CtlPassNoEast Liverpool City Hospital Comment on above:Performed By: #### [id number] #### Abdulkadir [facility] [address], [place] [address]NKWN-ErD+SARS-CoV-2 (COVID-19) Ag IA.rapid Ql (Resp)Not detectedNormalNot DetectedCleveland Clinic Mentor HospitalComment on above:Result Comment: The [employer] System for Rapid Detection of SARS-CoV-2 is a chromatographic digital immunoassay intended for the direct and qualitative detection of SARS-CoV-2 nucleocapsid antigensin nasal swabs from individuals who are suspected [...] of proteins from SARS-CoV-2, not for any otherviruses or pathogens; and, in the [place], this test is only authorized for the duration of the declaration that circumstances exist justifying the authorization of emergency use of in vitro diagnostics for detection and/or diagnosis of the virus that causes COVID-19 under Section 564(b)(1) of the Act,21 U.S.C. ? 360bbb-3(b)(1), unless the authorization is terminated or revoked sooner.Performed By: #### [id number] #### [facility] [address] [place] [address] [id number] By: Lambert Clayton on 87-31-5949HKT.beta subunit (U) [Moles/Vol]NegativermalMEM[facility] Man SeroU BetaHcg Qualon 70-68-0561GIF.beta subunit (U) [Moles/Vol]NegativeNormUniversity Hospitals Geauga Medical CenterComment on above:Performed By: #### [id number] #### [facility] [address] [place] [address]TX With Cult Reflexon 38-21-7984Oeubbgjzw Ql (U)NegativeNormal [facility] HospitalComment on above:Order Comment: Urinary Catheter Insertion triggered Urinalysis With Culture Reflex order by discern. Performed By: #### [id number] #### [facility] [address] [place] [address]Hrssjcq (U)CLEARNormalClearCleveland Clinic Mentor HospitalComment on above:Order Comment: Urinary Catheter Insertion triggered Urinalysis With Culture Reflex order by discern.Performed By: #### [id number] #### [facility] [address] [place] [address]Wmwof (U)YELLOWNormalYellowCleveland Clinic Mentor HospitalComment on above:Order Comment: Urinary Catheter Insertion triggered Urinalysis With Culture Reflex order by discern.Performed By: #### [id number] #### [facility] [address], [place] [address]Wuzradfm LM Ql (Urine sed)PresentUniversity Hospitals Parma Medical CenterComment on above:Order Comment: Urinary Catheter Insertion triggered Urinalysis With Culture Reflex order by discern.Performed By: #### [id number] #### [facility] [address] [place] [address]Lsrbyfruen cells.squamous LM.HPF (Urine sed) [#/Area]0-2Normal 0-2FKettering Health SpringfieldComment on above:Order Comment: Urinary Catheter Insertion triggered Urinalysis With Culture Reflex order by discern.Performed By: #### [id number] #### [facility] [address] [place] [address]Xaoekag Test strip (U) [Mass/Vol]NegativeNormalNegativeCleveland Clinic Mentor HospitalComment on above:Order Comment: Urinary Catheter Insertion triggered Urinalysis With Culture Reflex order by discern.Performed By: #### [id number] #### [facility] [address] [place] [address]Ntrrhzoozq Ql (U)NegativeApple SpringsNegMartins Ferry HospitalComment on above:Order Comment: Urinary Catheter Insertion triggered Urinalysis With Culture Reflex order by discern.Performed By: #### [id number] #### [facility] [address] [place] [address] 89[address]Xwwulxz (U) [Mass/Vol]NegativeNormalNegativeCleveland Clinic Mentor HospitalComment on above:Order Comment: Urinary Catheter Insertion triggered Urinalysis With Culture Reflex order by discern.Performed By: #### [id number] #### [facility] [address] [place] [address]Mafjngd.plasma/Jauca.RBC (Bld) [Mass ratio]0-2Uxvbux3-6WfoqtsKettering Health SpringfieldComment on above:Order Comment: Urinary Catheter Insertion triggered Urinalysis With Culture Reflex order by discern.Performed By: #### [id number] #### [facility] [address] [place] [address] 345[address]Fgflmbu Ql (U)NegativeNormalNegMartins Ferry Hospital Comment on above:Order Comment: Urinary Catheter Insertion triggered Urinalysis With Culture Reflex order by discern.Performed By: #### [id number] #### [facility] [address] [place] [address]dV (U)6.5 [pH]Invalid Interpretation Code5.0-9.0C[facility] Ment[facility] HospitalComment on above:Order Comment: Urinary Catheter Insertion triggered Urinalysis With Culture Reflex order by discern.Performed By: #### [id number] #### [facility] [address] [place] [address] 017[address]Ruxwfxx (U) [Mass/Vol]NegativeNormalNegMartins Ferry HospitalComment on above:Order Comment: Urinary Catheter Insertion triggered Urinalysis With Culture Reflex order by discern.Performed By: #### [id number] #### [facility] [address] [place] [address]Qnonatac gravity (U) [Rel density]1.020Invalid Interpretation Code1.005-1.030C[facility] Ment[facility] HospitalComment on above:Order Comment: Urinary Catheter Insertion triggered Urinalysis With Culture Reflex order by discern.Performed By: #### [id number] #### [facility] [address] [place] [address]Shya of Urine collection methodClean CatchNoEast Liverpool City HospitalComment on above:Order Comment: Urinary Catheter Insertion triggered Urinalysis With Culture Reflex order by discern.Performed By: #### [id number] #### [facility] [address] [place] [address] 215[address]Odnscwbsljir Qn (U)0.2 {Mary Ann'U}/dLNormal0.0-1.0C[facility] Ment[facility] HospitalComment on above:Order Comment: Urinary Catheter Insertion triggered Urinalysis With Culture Reflex order by discern.Performed By: #### [id number] #### [facility] [address] [place] [address] 99[address]YKN Auto Ql (U)NegativermalNegMartins Ferry HospitalComment on above:Order Comment: Urinary Catheter Insertion triggered Urinalysis With Culture Reflex order by discern.Performed By: #### [id number] #### [facility] [address] [place] [address] 19[address]MQU LM.HPF (Urine sed) [#/Area]6-0Macspn1-7Uaulju [facility] HospitalComment on above:Order Comment: Urinary Catheter Insertion triggered Urinalysis With Culture Reflex order by discern.Performed By: #### [id number] #### [facility] [address], [place] [address]Zlrqstfp LM Ql (Urine sed)TRACENormalTraceCleveland Clinic Mentor HospitalComment on above:Performed By: #### [id number] #### [facility] [address], [place] [address]Ekiwjdbup Ql (U)NegativeNormalNegMartins Ferry HospitalComment on above:Performed By: #### [id number] #### [facility] [address], [place] [address]Ojjbrrb (U)CLEARNormalClearCleveland Clinic Mentor HospitalComment on above:Performed By: #### [id number] #### [facility] [address], [place] [address]Drunq (U)YELLOWNormalYellowCleveland Clinic Mentor HospitalComment on above:Performed By: #### [id number] #### [facility] [address], [place] [address]Pqpmbpdy LM Ql (Urine sed)PresentNormalCleveland Clinic Mentor HospitalComment on above:Performed By: #### [id number] #### [facility] [address], [place] [address]Csazgxxyne cells.squamous LM.HPF (Urine sed) [#/Area]3-4Normal 0-2Fisher [facility] HospitalComment on above:Performed By: #### [id number] #### [facility] [address], [place] [address]Scdepma Test strip (U) [Mass/Vol]NegativeNormalNegativeCleveland Clinic Mentor HospitalComment on above:Performed By: #### [id number] #### [facility] [address], [place] [address]Lschbrqroy Ql (U)NegativeNormalNegativeCleveland Clinic Mentor HospitalComment on above:Performed By: #### [id number] #### [facility] [address] [place] [address] 98[address]Tqpdndu (U) [Mass/Vol]NegativeNormalNegativeCleveland Clinic Mentor HospitalComment on above:Performed By: #### [id number] #### [facility] [address] [place] [address] 318[address]Gbjwmmx.plasma/Jauca.RBC (Bld) [Mass ratio]7-4Hunrmi3-9Ycqvzw [facility] HospitalComment on above:Performed By: #### [id number] #### [facility] [address] [place] [address]Ydpck Ql (Urine sed)2+NormalCleveland Clinic Mentor HospitalComment on above:Performed By: #### [id number] #### [facility] [address] [place] [address]Uvjieqf Ql (U)NegativeNormalNegMartins Ferry Hospital Comment on above:Performed By: #### [id number] #### [facility] [address] [place] [address] 01482jT (U)7.5 [pH]Invalid Interpretation Code5.0-9.0C[facility] Ment[facility] HospitalComment on above:Performed By: #### [id number] #### [facility] [address] [place] [address]Jxbcpah (U) [Mass/Vol]NegativeNormalNegativeCleveland Clinic Mentor HospitalComment on above:Performed By: #### [id number] #### [facility] [address] [place] [address]Fudmwiph gravity (U) [Rel density]1.020Invalid Interpretation Code1.005-1.030[facility] HospitalComment on above:Performed By: #### [id number] #### [facility] [address], [place] [address]Azpb of Urine collection methodClean CatchNormalCleveland Clinic Mentor HospitalComment on above:Performed By: #### [id number] #### Abdulkadir [facility] [address] [place] [address]Howpvvkdrzgo Qn (U)0.2 {Mary Ann'U}/dLNormal0.0-1.0[facility] HospitalComment on above:Performed By: #### [id number] #### Abdulkadir [facility] [address] [place] [address]44[address]AXQ Auto Ql (U)1+AbnormalNegativeCleveland Clinic Mentor Hospital Comment on above:Performed By: #### [id number] #### [facility] [address] [place] [address]84[address]SYW LM.HPF (Urine sed) [#/Area]9-5Wlpcxf4-5Runkgh [facility] HospitalComment on above:Performed By: #### [id number] #### Panchal [facility] [address] [place] [address] 48958MWTKLEGFEWYspjpze By: Lambert Clayton on 95-97-2728Phnisxoqc Ql (U)Negative (07/01/23 7:07 PM)NormalNegativeMEM[facility] UA Auto SSClarity (U)Clear (07/01/23 7:07 PM)NormalClearFOKLAHOMA [facility] UA Auto SSColor (U)Yellow (07/01/23 7:07 PM)NormalYellowMEMORIAL [facility] UA Auto SSCrystals LM Ql (Urine sed)Present (07/01/23 7:07 PM)NormalMEMORIAL [facility] UA Auto SSEpithelial cells.squamous LM.HPF (Urine sed) [#/Area]0-2 /HPFNormal0-2/HPFMEMORIAL [facility] UA Auto SSGlucose Test strip (U) [Mass/Vol]Negative (07/01/23 7:07 PM)NormalNegativeMEM[facility] UA Auto SSHemoglobin Ql (U)Negative (07/01/23 7:07 PM)NormalNegativeMEM[facility] UA Auto SSKetones (U) [Mass/Vol]Negative (07/01/23 7:07 PM)NormalNegativeMEM[facility] UA Auto SSLithium.plasma/Jauca.RBC (Bld) [Mass ratio]0-3 /HPFNormal0-3/HPFMEMORIAL [facility] UA Auto SSNitrite Ql (U)Negative (07/01/23 7:07 PM)NormalNegativeMEM[facility] UA Auto SSpH (U)6.5 *NA* (07/01/23 7:07 PM)Invalid Interpretation Code5.0 - 9.0[facility] UA Auto SSProtein (U) [Mass/Vol]Negative (07/01/23 7:07 PM)NormalNegativeMEM[facility] UA Auto SSSpecific gravity (U) [Rel density] 1.020 *NA* (07/01/23 7:07 PM)Invalid Interpretation Code1.005 - 1.030[facility] UA Auto SSUA Spec DescClean Catch (07/01/23 7:07 PM)NormalMEM[facility]IAL [facility] UA Auto SSUrobilinogen Qn (U)0.6451351 {Mary Ann'U}/dLNormal0.0 - 1.0 EU/dLMEMORIAL HOS[facility] UA Auto SSWBC Auto Ql (U)Negative (07/01/23 7:07 PM)NormalNegativeMEM[facility]IAL [facility] UA Auto SSWBC LM.HPF (Urine sed) [#/Area]0-5 /HPFNormal0-5/HPFMEM[facility]IAL [facility] UA Auto SSBacteria LM Ql (Urine sed)Trace /HPFNormal Trace/HPFMEMORIAL [facility] UA Auto SSBilirubin Ql (U)Negative (07/01/23 6:14 PM)NormalNegativeMEM[facility] UA Auto SSClarity (U)Clear (07/01/23 6:14 PM)NormalClearFOKLAHOMA [facility] & [facility] UA Auto SSColor (U)Yellow (07/01/23 6:14 PM)NormalYellowMEMORIAL [facility] UA Auto SSCrystals LM Ql (Urine sed)Present (07/01/23 6:14 PM)NormalMEM[facility]IAL [facility] UA Auto SSEpithelial cells.squamous LM.HPF (Urine sed) [#/Area]3-4 /HPFNormal0-2/HPFMEMORIAL [facility] UA Auto SSGlucose Test strip (U) [Mass/Vol]Negative (07/01/23 6:14 PM)NormalNegativeMEM[facility] UA Auto SSHemoglobin Ql (U)Negative (07/01/23 6:14 PM)NormalNegativeMEM[facility] UA Auto SSKetones (U) [Mass/Vol]Negative (07/01/23 6:14 PM)NormalNegativeMEM[facility] UA Auto SSLithium.plasma/Jauca.RBC (Bld) [Mass ratio]0-3 /HPFNormal0-3/HPFMEMORIAL [facility] UA Auto SSMucus Ql (Urine sed)2+ (07/01/23 6:14 PM)NormalMEM[facility] UA Auto SSNitrite Ql (U)Negative (07/01/23 6:14 PM)NormalNegativeMEM[facility] UA Auto SSpH (U)7.5 *NA* (07/01/23 6:14 PM)Invalid Interpretation Code5.0 - 9.0[facility] UA Auto SSProtein (U) [Mass/Vol]Negative (07/01/23 6:14 PM)NormalNegativeMEM[facility] UA Auto SSSpecific gravity (U) [Rel density] 1.020 *NA* (07/01/23 6:14 PM)Invalid Interpretation Code1.005 - 1.030[facility] UA Auto SSUA Spec DescClean Catch (07/01/23 6:14 PM)NormalMEM[facility]IAL [facility] UA Auto SSUrobilinogen Qn (U)0.9883769 {Mary Ann'U}/dLNormal0.0 - 1.0 EU/dLMEMORIAL [facility]OS[facility] UA Auto SSWBC Auto Ql (U)1+ *ABN* (07/01/23 6:14 PM)Invalid Interpretation CodeNegativeMEM[facility] UA Auto SSWBC LM.HPF (Urine sed) [#/Area]0-5 /HPFNormal0-5/HPFMEM[facility]IAL [facility] UA Auto SSeGFRon 07-01-2023 GFR/1.73 sq M.predicted among non-blacks MDRD (S/P/Bld) [Vol rate/Area]123 mL/min/1.73 f6Jahhce>=59C[facility] Mentor HospitalComment on above:Order Comment: Order added by Discern Expert.Result Comment: Chronic kidney disease could be indicated at eGFR's of less than 60 mL/min/1.73m2. Kidney failure is indicated at less than 15 mL/min/1.73m2.Performed By: #### [id number] #### Panchal [facility] [address] [place], [place] [address]YO PELVIS AND TRANSVAGon [id number] PELVIS AND TRANSVAG EXAMINATION: US PELVIS AND [...] Electronically authenticated by: ILENE MERCADO Date: 2022-07-18 21:34[facility] AUTO DIFFon [id number] #0.0 103/ulNormal0.0-0.1The White HospitalComment on above:Performed By: #### YANE LARSON #### [facility] [address] [address] [address] Hans Beaversphils/100 WBC (Bld)0.2 %Normal0.2-2.0[facility] Comment on above:Performed By: #### YANE LARSON #### [facility] [address] [address] [address] Hans Munson #0.2 103/ulNormal0.0-0.7The [facility] HospitalComment on above: Performed By: #### SHAWN LARSONRO #### [facility] [address] [place] [address] Dr. Hans Mcallisterosinophils/100 WBC (Bld)2.3 %Normal0.9-7.0[facility] Comment on above:Performed By: #### SHAWN LARSONRO #### [facility] [address] [place] [address] Dr. Hans Mcallisterrythrocyte distribution width (RBC) [Ratio]13.0 %Uuhdnu88.0-15.0 The [facility] HospitalComment on above:Performed By: #### SHAWN LARSONRO #### [facility] [address] [place] [address] Dr. Hans MunizHematocrit (Bld) [Volume fraction]45.7 %Jihhdt41.0-48.0The [facility] HospitalComment on above:Performed By: #### SHAWN LARSONRO #### [facility] [address] [place] [address] Dr. Hans MunizHemoglobin (Bld) [Mass/Vol]14.7 g/gIJucdnb84.0-16.0The [facility] Hospitalment on above:Performed By: #### SHAWN LARSONRO #### [facility] [address] [place] [address] Dr. Hans Tan #0.03 10e3/ulNormal0.00-0.03The [facility] HospitalComment on above:Performed By: #### MAGALIS LARSONICRO #### [facility] [address] [place] [address] Dr. Hans Tan %0.4 %Normal0.0-0.5The [facility] HospitalComment on above: Performed By: #### MAGALIS LARSONICRO #### [facility] [address] [place] [address] Dr. Hans Mcmillan #1.9 103/ulNormal1.2-3.8The [facility] Points HospitalComment on above:Performed By: #### NEO UMICRO #### [facility] [address] [place] [address] Dr. Hans Corbinmphocytes/100 WBC (Bld)23.0 %Trgpwn51.5-60.0The [facility] HospitalComment on above:Performed By: #### NEO UMICRO #### [facility] [address] [place] [address] Dr. Hans Ocampo DIFF REQNONormalThe White HospitalComment on above: Performed By: #### NEO UMICRO #### [facility] [address] [place] [address] Dr. Hans Pettit (RBC) [Entitic mass]27.1 trGhlqin01.7-34.0The [facility] HospitalComment on above:Performed By: #### NEO UMICRO #### [facility] [address] [place] [address] Dr. Hans Pettit (RBC) [Mass/Vol]32.2 g/xUHvgyhj40.9-35.2The [facility] HospitalComment on above:Performed By: #### NEO UMICRO #### [facility] [address] [place] [address] Dr. Hans Pettit (RBC) [Entitic vol]84.3 jIYxzbkx60.0-99.0The [facility] HospitalComment on above:Performed By: #### NEO UMICRO #### [facility] [address] [place] [address] Dr. Hans Lunsford #0.6 103/ulNormal0.3-0.8The [facility] HospitalComment on above:Performed By: #### NEO UMICRO #### [facility] [address] [place] [address] Dr. Hans Annocytes/100 WBC (Bld)7.1 %Normal1.7-12.0[facility] on above:Performed By: #### NEO UMICRO #### [facility] [address] [place] [address] Dr. Hans Knapp #5.6 103/ulNormal1.4-6.5The [facility] HospitalComment on above:Performed By: #### NEO UMICRO #### [facility] [address] [place] [address] Dr. Hans Quachutrophils/100 WBC (Bld)67.0 %Qvcknv26.0-75.0The [facility] HospitalComment on above:Performed By: #### NEO UMICRO #### [facility] [address] [place] [address] Dr. Hans Davieslet mean volume (Bld) [Entitic vol]8.5 fLCritically low 9.5-13.5The [facility] HospitalComment on above:Performed By: #### NEO UMICRO #### [facility] [address] [place] [address] Dr. Hans MunizPLT307 103/yjQawziq866-750Fmi White HospitalComment on above: Performed By: #### NEO UMICRO #### [facility] Laboratory [address] [place] [address] Dr. Hans MunizRBC5.42 106/ulCritically high4.20-5.40[facility] Comment on above:Performed By: #### NEO UMICRO #### [facility] [address] [place] [address] Dr. Hans MunizWBC8.4 103/ulNormal4.0-11.0The White HospitalComment on above: Performed By: #### NEO UMICRO #### [facility] [address] [place] [address] Dr. Hans MunizCT ABD/PELV W CONon 14-12-0002RX ABD/PELV W CONEXAMINATION: CT ABD/PELV W CON HISTORY: Pain in [...] Electronically authenticated by: ILENE MERCADO Date: 2022-07-06 15:46NoTrumbull Regional Medical CenterCovid-19 PCR (CVDTB)on [id number]-CoV-2 (COVID-19) RNA BALTAZAR+probe Ql (Unsp spec)Not detectedNormalNOT DETECTEDThe [facility] Comment on above:Result Comment: When diagnostic testing is negative, the [...] for this test is supported by the [place] of Health and Human Service's declaration that circumstances exist to justify the emergency use of in vitro diagnostics for the detection and/or diagnosis of the virus that causes COVID-19. This EUA will remain in effect for the duration of the COVID-19 declaration justifying emergency of IVDs, unless it is terminated or revoked by the FDA (after which the test may no longer be used).Performed By: #### ERUR, YANE #### [facility] [address] [place] [address] Dr. Hans Bro URINE PROFILEon 05-27-7795Bgxkqibtt Ql (U)NegativeNormal NEGATIVELima City HospitalComment on above:Performed By: #### ERUR #### [facility] [address] [place] [address] Dr. Hans MunizClarity (U)CLEARNormalCLEARLima City HospitalComment on above: Performed By: #### ERUR #### [facility] [address] [place] [address] Dr. Hans Teague (U)YELLOWNormalYELLOWLima City HospitalComment on above: Performed By: #### ERUR #### [facility] [address] [place] [address] Dr. Hans Holguin micrscopic examination will be performed if indicated. NormalThe Five Points HospitalComment on above:Performed By: #### ERUR #### [facility] [address] [place] [address] Dr. Hans MunizGlucose Ql (U)NegativeNormalNEGATIVELima City HospitalComment on above:Performed By: #### ERUR #### [facility] [address] [place] [address] Dr. Hans MunizHemoglobin Ql (U)NegativeNormalNEGATIVESt. [facility] Comment on above:Performed By: #### ERUR #### [facility] [address] [place] [address] DrWojciech Betancourt Ql (U)NegativeNormalNEGATIVEThe White HospitalComment on above:Performed By: #### ERUR #### [facility] [address] [place] [address] Dr. Hans MunizLEUKOCYTESNegativeNormalNEGATIVEThe White HospitalComment on above:Performed By: #### ERUR #### [facility] [address] [place] [address] Dr. Hans Reinosotrite Ql (U)NegativeNormalNEGATIVEThe White HospitalComment on above:Performed By: #### ERUR #### [facility] [address] [place] [address] Dr. Hans MunizpH (U)7.0 [pH]Normal5-9The White HospitalComment on above: Performed By: #### ERUR #### [facility] [address] [place] [address] Dr. Hans MunizSPEC GRAVITY1.035Eyzakq5.005-<=1.025The White HospitalComment on above:Performed By: #### ERUR #### [facility] [address] [place] [address] Dr. Hans Montalvo PROTEINNegativeNormalNEGATIVE/ TRACEThe [facility] on above:Performed By: #### ERUR #### [facility] [address] [place] [address] Dr. Hans Roy MICRO INDNOT INDICATEDNormalThe White HospitalComment on above:Performed By: #### ERUR #### [facility] [address] [place] [address] Dr. Hans MunizUrobilinogen Qn (U)0.2 {Mary Ann'U}/dLNormal0.2 - 1.0The [facility] HospitalComment on above:Performed By: #### ERUR #### [facility] [address] [place] [address] Dr. Hans MunizLACTATE/LACTIC ACIDon 19-14-1728Zrzcovr [Moles/Vol]1.7 mmol/L Normal0.4-1.9The [facility] HospitalComment on above:Performed By: #### SHAWN LARSONRO #### [facility] [address] [address] [address] Hans BaileyF CHEM 8 (BAS METB)on 46-29-2636Elhiy gap [Moles/Vol]12.3 mmol/LNormalThe White HospitalComment on above:Performed By: #### SHAWN LARSONRO #### [facility] [address] [place] [address] Dr. Hans MunizCalcium [Mass/Vol]9.2 mg/dLNormal8.5-10.1[facility] Comment on above:Performed By: #### SHAWN LARSONRO #### [facility] [address] [place] [address] Dr. Hans MunizChloride [Moles/Vol]101 mmol/NLotkit95-798H[facility] Comment on above:Performed By: #### SHAWN LARSONRO #### [facility] [address] [place] [address] Dr. Hans MunizCO2 [Moles/Vol]26.7 mmol/EDxzppt89.0-32.0[facility] Comment on above:Performed By: #### SHAWN LARSONRO #### [facility] [address] [place] [address] Dr. Hans MunizCreatinine [Mass/Vol]0.75 mg/dLNormal0.55-1.02The [facility] HospitalComment on above:Performed By: #### NEO UMICRO #### [facility] [address] [place] [address] Dr. Maxwell ChangEGFR-AF GUYANESE>60Normal>=60The [facility] HospitalComment on above:Performed By: #### SHAWN LARSONRO #### [facility] [address] [place] [address] Dr. Hans McallisterGFR-NON AF GUYANESE>60Normal>=60The [facility] HospitalComment on above:Performed By: #### SHAWN LARSONRO #### [facility] [address] [address] [address] Hans MunizGlucose [Mass/Vol]96 mg/jEGgeifr89-820YthLima City Hospital Comment on above:Performed By: #### NEO, UMICRO #### [facility] [address] [address] [address] Hans MunizPotassium [Moles/Vol]4.0 mmol/LNormal3.5-5.1[facility] Comment on above:Performed By: #### NEO, UMICRO #### [facility] [address] [address] [address] Hans MunizSodium [Moles/Vol]136 mmol/RUechkd411-265ElnLima City Hospital Comment on above:Performed By: #### NEO, UMICRO #### [facility] [address] [place] [address] Dr. Hans MunizUrea nitrogen [Mass/Vol]9.0 mg/dLNormal7.0-18.0Lima City HospitalComment on above:Performed By: #### NEO UMICRO #### [facility] [address] [place] [address] Dr. Hans Harden nitrogen/Creatinine [Mass ratio]12.0 mg/mgNormalThe White HospitalComment on above:Performed By: #### NEO, UMICRO #### [facility] [address] [place] [address] Dr. Hans Harris URINEon [id number] URINEIsolate 1 Streptococcus agalactiae >100,000 cfu/mL of ORGANISM 1 Streptococcus agalactiae ANTIBIOTIC M.I.C RX STATUS Benzylpenicillin <=0.06 S F Ampicillin <=0.25 S F Cefotaxime <=0.12 S F Ceftriaxone <=0.12 S F Levofloxacin 0.5 S F Inducible Clindamycin Resistance Neg NEG F Erythromycin >=8 R F Clindamycin >=1 R F Linezolid <=2 S F Vancomycin 0.5 S F Tetracycline >=16 R FNormalThe White HospitalComment on above:Performed By: #### ERUR, UMICRO #### [facility] [address] [place] [address] Dr. Hans Hodge AUTO DIFFon [id number] #0.0 103/ulNormal0.0-0.1The [facility] HospitalComment on above:Performed By: #### CBC #### [facility] [address] [place] [address] Dr. Hans MunizBasophils/100 WBC (Bld)0.3 %Normal0.2-2.0[facility] Comment on above:Performed By: #### CBC #### [facility] [address] [place] [address] Dr. Hans Munson #0.1 103/ulNormal0.0-0.7The [facility] HospitalComment on above: Performed By: #### CBC #### [facility] [address] [place] [address] Dr. Hans Mcallisterosinophils/100 WBC (Bld)1.2 %Normal0.9-7.0[facility] Comment on above:Performed By: #### CBC #### [facility] [address] [place] [address] Dr. Hans Mcallisterrythrocyte distribution width (RBC) [Ratio]13.1 %Bgmkre55.0-15.0 The [facility] HospitalComment on above:Performed By: #### CBC #### [facility] [address] [place] [address] Dr. Hans MunizHematocrit (Bld) [Volume fraction]37.6 %Lcoing89.0-48.0The [facility] HospitalComment on above:Performed By: #### CBC #### [facility] [address] [place] [address] Dr. Hans MunizHemoglobin (Bld) [Mass/Vol]12.4 g/vMMoiewb55.0-16.0The [facility] HospitalComment on above:Performed By: #### CBC #### [facility] [address] [place] [address] Dr. Hans Tan #0.02 10e3/ulNormal0.00-0.03The [facility] HospitalComment on above:Performed By: #### CBC #### [facility] [address] [place] [address] Dr. Hans Tna %0.2 %Normal0.0-0.5The [facility] HospitalComment on above: Performed By: #### CBC #### [facility] [address] [place] [address] Dr. Hans Mcmillan #3.3 103/ulNormal1.2-3.8The [facility] HospitalComment on above:Performed By: #### CBC #### [facility] [address] [place] [address] Dr. Hans Caldwellhocytes/100 WBC (Bld)34.8 %Mgdwsm72.5-60.0The [facility] HospitalComment on above:Performed By: #### CBC #### [facility] [address] [place] [address] Dr. Hans ChristineUAL DIFF REQNONormalThe White HospitalComment on above: Performed By: #### CBC #### [facility] [address] [place] [address] Dr. Hans Martinez (RBC) [Entitic mass]27.8 ljPbbxcr88.7-34.0The [facility] HospitalComment on above:Performed By: #### CBC #### [facility] [address] [place] [address] Dr. Hans Pettit (RBC) [Mass/Vol]33.0 g/dDNfmdlp08.9-35.2The [facility] HospitalComment on above:Performed By: #### CBC #### [facility] [address] [place] [address] Dr. Hans Soliz (RBC) [Entitic vol]84.3 bJZmsbul61.0-99.0The [facility] HospitalComment on above:Performed By: #### CBC #### [facility] [address] [place] [address] Dr. Hans Lunsford #0.6 103/ulNormal0.3-0.8The [facility] HospitalComment on above:Performed By: #### CBC #### [facility] [address] [place] [address] Dr. Hans Annocytes/100 WBC (Bld)6.8 %Normal1.7-12.0[facility] Comment on above:Performed By: #### CBC #### [facility] [address] [place] [address] Dr. Hans Knapp #5.3 103/ulNormal1.4-6.5The [facility] HospitalComment on above:Performed By: #### CBC #### [facility] [address] [place] [address] Dr. Hans Quachutrophils/100 WBC (Bld)56.7 %Jxhkxl35.0-75.0The [facility] HospitalComment on above:Performed By: #### CBC #### [facility] [address] [place] [address] Dr. Hans Davieslet mean volume (Bld) [Entitic vol]8.9 fLCritically low 9.5-13.5The [facility] HospitalComment on above:Performed By: #### CBC #### [facility] [address] [place] [address] Dr. Hans MunizPLT286 103/zoGsvyig598-400Efb White HospitalComment on above: Performed By: #### CBC #### [facility] [address] [place] [address] Dr. Hans MunizRBC4.46 106/ulNormal4.20-5.40The [facility] HospitalComment on above:Performed By: #### CBC #### [facility] [address] [place] [address] Dr. Hans MunizWBC9.4 103/ulNormal4.0-11.0The [facility] HospitalComment on above: Performed By: #### CBC #### [facility] [address] [place] [address] Dr. Yilan ChangER URINE PROFILEon 58-12-0097Bmntlzlsx Ql (U)NegativeNormal NEGATIVELima City HospitalComment on above:Performed By: #### NEO UMICRO #### [facility] [address] [address] [address] Hans MunizClarity (U)CLEARNormalCLEARLima City HospitalComment on above: Performed By: #### NEO UMICRO #### [facility] [address] [address] [address] Hans Teague (U)LT. YELLOWNormalYELLOWLima City HospitalComment on above:Performed By: #### NEO UMICRO #### [facility] [address] [place] [address] Dr. Hans Holguin micrscopic examination will be performed if indicated. NormalLima City HospitalComment on above:Performed By: #### NEO UMICRO #### [facility] [address] [place] [address] Dr. Hans MunizGlucose Ql (U)NegativeNormalNEGATIVELima City HospitalComment on above:Performed By: #### NEO UMICRO #### [facility] [address] [place] [address] Dr. Hans MunizHemoglobin Ql (U)NegativeNormalNEGATIVEVeterans Health Administration on above:Performed By: #### NEO UMICRO #### [facility] [address] [place] [address] Dr. Hans MunizKetones Ql (U)NegativeNormalNEGATIVELima City HospitalComment on above:Performed By: #### NEO UMICRO #### [facility] [address] [place] [address] Dr. Hans MunizLEUKOCYTESSMALLAbnormalNEGATIVELima City HospitalCommymichigan medical center [place] on above:Performed By: #### NEO UMICRO #### [facility] [address] [place] [address] Dr. Hans MunizNitrite Ql (U)NegativeNormalNEGATIVEThe Katie HospitalComment on above:Performed By: #### NEO UMICRO #### [facility] [address] [address] [address] Hans MunizpH (U)6.0 [pH]Normal5-9The [facility] HospitalComment on above: Performed By: #### NEO UMICRO #### [facility] [address] [address] [address] Hans MunizSPEC GRAVITY1.871Ayhvql6.005-<=1.025The [facility] HospitalComment on above:Performed By: #### NEO UMICRO #### [facility] [address] [place] [address] Dr. Hans Montalvo PROTEINNegativeNormalNEGATIVE/ TRACEThe [facility] Comment on above:Performed By: #### NEO UMICRO #### [facility] [address] [place] [address] Dr. Hans MunizUR MICRO INDINDICATEDNormalThe [facility] HospitalComment on above: Performed By: #### NEO UMICRO #### [facility] [address] [place] [address] Dr. Hans Noblebilinogen Qn (U)0.2 {Mary Ann'U}/dLNormal0.2 - 1.0The [facility] HospitalComment on above:Performed By: #### NEO UMICRO #### [facility] [address] [place] [address] Dr. Hans MunizPROF CHEM 8 (BAS METB)on 23-69-0165Prluv gap [Moles/Vol]11.7 mmol/LNormalThe White HospitalComment on above:Performed By: #### GIPANEL #### [facility] [address] [place] [address] Dr. Hans MunizCalcium [Mass/Vol]8.2 mg/dLCritically low8.5-10.1The [facility] HospitalComment on above:Performed By: #### NEVAL #### [facility] [address] [place] [address] Dr. Hans MunizChloride [Moles/Vol]106 mmol/EFmsrck02-787W[facility] Comment on above:Performed By: #### GIPGULSHANL #### [facility] [address] [address] [address] Hans MunizCO2 [Moles/Vol]23.6 mmol/UNpqhtg76.0-32.0[facility] Comment on above:Performed By: #### GIPANEL #### [facility] [address] [address] [address] Hans MunizCreatinine [Mass/Vol]0.83 mg/dLNormal0.55-1.02The [facility] HospitalComment on above:Performed By: #### GIPANEL #### [facility] [address] [address] [address] Hans McallisterGFR-AF GUYANESE>60Normal>=60The [facility] HospitalComment on above:Performed By: #### GIPANEL #### [facility] [address] [address] [address] Hans McallisterGFR-NON AF GUYANESE>60Normal>=60The [facility] HospitalComment on above:Performed By: #### GIPANEL #### [facility] [address] [place] [address] Dr. Hans MunizGlucose [Mass/Vol]96 mg/rVPsdrdo29-484ObnLima City Hospital Comment on above:Performed By: #### GIPANEL #### [facility] [address] [address] [address] Hans MunizPotassium [Moles/Vol]3.3 mmol/LCritically low3.5-5.1The [facility] HospitalComment on above:Performed By: #### GIPANEL #### [facility] [address] [address] [address] Hans MunizSodium [Moles/Vol]138 mmol/LNudnxm273-211[facility] Comment on above:Performed By: #### GIPANEL #### [facility] [address] [address] [address] Hans Harden nitrogen [Mass/Vol]3.0 mg/dLCritically low7.0-18.0[facility] on above:Performed By: #### HARI #### [facility] [address] [address] [address] Hans Harden nitrogen/Creatinine [Mass ratio]3.6 mg/mgNoTrumbull Regional Medical CenterComment on above:Performed By: #### HARI #### [facility] [address] [place] [address] Dr. Hans Borden MICROSCOPIC ONLYon 58-79-0083UJIGTKTTQXPUIBhuaufkmVMDQ SEEN The [facility] HospitalCommymichigan medical center [facility] on above:Performed By: #### SHAWN LARSONRO #### [facility] [address] [place] [address] Dr. Hans Cruz identified Cx Nom (U)INDICATEDNoTrumbull Regional Medical CenterComment on above:Performed By: #### NEO UMICRO #### [facility] [address] [place] [address] Dr. Hans Langford SEENNormalNONE SEENThe White HospitalCommymichigan medical center [place] on above:Performed By: #### SHAWN LARSONRO #### [facility] [address] [place] [address] Dr. Hans Devriesystals LM Nom (Urine sed)NONE SEENNormalNONE SEENThe White HospitalCommymichigan medical center [place] on above:Performed By: #### NEO UMICRO #### [facility] [address] [place] [address] Dr. Maxwell ChangEpithelial cells LM Ql (Urine sed)FEWAbnormalNONE SEEN /RAREThe White HospitalCommymichigan medical center [place] on above:Performed By: #### NEO UMICRO #### [facility] [address] [place] [address] Dr. Hans ForbesACEAbnormalNONE SEENLima City HospitalCommymichigan medical center [place] on above:Performed By: #### NEO UMICRO #### [facility] [address] [place] [address] Dr. Hans MunizBgshiJXZ6-1Oppudhim3-3Bps White HospitalComment on above:Performed By: #### SHAWN LARSONRO #### [facility] [address] [place] [address] Dr. Hans MunizNqsuaYIE94-39GzhdidfaWAHU SEENThe White HospitalComment on above: Performed By: #### NEO UMICRO #### [facility] [address] [place] [address] Dr. Hans Hodge AUTO DIFFon [id number] #0.1 103/ulNormal0.0-0.1The [facility] HospitalComment on above:Performed By: #### NEO UMICRO #### [facility] [address] [place] [address] Dr. Hans MunizBasophils/100 WBC (Bld)0.7 %Normal0.2-2.0[facility] Comment on above:Performed By: #### NEO UMICRO #### [facility] [address] [place] [address] Dr. Hans Munson #0.2 103/ulNormal0.0-0.7The [facility] HospitalComment on above: Performed By: #### NEO UMICRO #### [facility] [address] [place] [address] Dr. Hans Mcallisterosinophils/100 WBC (Bld)2.8 %Normal0.9-7.0[facility] Comment on above:Performed By: #### NEO UMICRO #### [facility] [address] [place] [address] Dr. Hans Mcallisterrythrocyte distribution width (RBC) [Ratio]13.0 %Wrgsos83.0-15.0 The [facility] HospitalComment on above:Performed By: #### NEO UMICRO #### [facility] [address] [place] [address] Dr. Hans MunizHematocrit (Bld) [Volume fraction]40.8 %Isbykj40.0-48.0The [facility] Points HospitalComment on above:Performed By: #### YANE LARSON #### [facility] [address] [place] [address] Dr. Hans MunizHemoglobin (Bld) [Mass/Vol]13.3 g/rLLjkrgv65.0-16.0The [facility] HospitalComment on above:Performed By: #### SHAWN LARSONRO #### [facility] [address] [place] [address] Dr. Hans Tan #0.03 10e3/ulNormal0.00-0.03The [facility] HospitalComment on above:Performed By: #### YANE LARSON #### [facility] [address] [place] [address] Dr. Hans Tan %0.4 %Normal0.0-0.5The [facility] HospitalComment on above: Performed By: #### YANE LARSON #### [facility] [address] [place] [address] Dr. Hans Mcmillan #3.1 103/ulNormal1.2-3.8The [facility] HospitalComment on above:Performed By: #### SHAWN LARSONRO #### [facility] [address] [place] [address] Dr. Hans Caldwellhocytes/100 WBC (Bld)43.3 %Qeryzg21.5-60.0The [facility] HospitalComment on above:Performed By: #### SHAWN LARSONRO #### [facility] [address] [place] [address] Dr. Hans ChristineUAL DIFF REQNONormalThe White HospitalComment on above: Performed By: #### SHAWN LARSONRO #### [facility] [address] [place] [address] Dr. Hans Martinez (RBC) [Entitic mass]27.5 kdJonyio83.7-34.0The [facility] HospitalComment on above:Performed By: #### YANE LARSON #### [facility] [address] [place] [address] Dr. Hans Pettit (RBC) [Mass/Vol]32.6 g/lEGtmift09.9-35.2The [facility] HospitalComment on above:Performed By: #### NEO UMICRO #### [facility] [address] [place] [address] Dr. Hans Pettit (RBC) [Entitic vol]84.5 gQFdldyb87.0-99.0The [facility] HospitalComment on above:Performed By: #### NEO UMICRO #### [facility] [address] [place] [address] Dr. Hans Lunsford #0.5 103/ulNormal0.3-0.8The [facility] HospitalComment on above:Performed By: #### SHAWN LARSONRO #### [facility] [address] [place] [address] Dr. Hans Annocytes/100 WBC (Bld)6.9 %Normal1.7-12.0[facility] Comment on above:Performed By: #### SHAWN LARSONRO #### [facility] [address] [place] [address] Dr. Hans Knapp #3.3 103/ulNormal1.4-6.5The [facility] HospitalComment on above:Performed By: #### SHAWN LARSONRO #### [facility] [address] [place] [address] Dr. Hans Quachutrophils/100 WBC (Bld)45.9 %Yjmctr30.0-75.0The [facility] HospitalComment on above:Performed By: #### SHAWN LARSONRO #### [facility] [address] [place] [address] Dr. Hans Barker mean volume (Bld) [Entitic vol]8.9 fLCritically low 9.5-13.5The [facility] HospitalComment on above:Performed By: #### NEO UMICRO #### [facility] [address] [address] [address] Hans MunizPLT291 103/cpZsruar386-353Vna White HospitalComment on above: Performed By: #### ERUR, UMICRO #### [facility] [address] [place] [address] Dr. Hans MunizRBC4.83 106/ulNormal4.20-5.40The [facility] HospitalComment on above:Performed By: #### MELOR, UMICRO #### [facility] [address] [place] [address] Dr. Hans MunizWBC7.3 103/ulNormal4.0-11.0The [facility] HospitalComment on above: Performed By: #### NEO, UMICRO #### [facility] [address] [place] [address] Dr. Hans MunizPREG HCG QUALon [id number], QUALNegativeNormalNEGATIVE The [facility] HospitalComment on above:Performed By: #### GIPANEL #### [facility] [address] [place] [address] Dr. Hans MunizCovid-19 PCR ([facility])on [id number]-CoV-2 (COVID-19) RNA BALTAZAR+probe Ql (Unsp spec)Not detectedNormalNOT DETECTEDThe [facility] Comment on above:Result Comment: This test is not yet approved or cleared by the [place] FDA. When there are no FDA-approved or cleared tests available, and other criteria are met, FDA can make tests available under an emergency access mechanism called an Emergency Use Authorization (EUA). The EUA for this test is supported by the [employer] of Health and Human Service's (HHS's) declaration that circumstances exist to justify the emergency use of in vitro diagnostics for the detection and/or diagnosis of the virus that causes COVID- 19. This EUA will remain in effect (meaning [...] of clinical signs and symptoms consistent with SARS-CoV-2.Performed By: #### CVDTB #### [facility] [address] [place] [address] Dr. Hans Bowens PELVIS AND TRANSVAGon [id number] PELVIS AND TRANSVAG EXAMINATION: US PELVIS AND [...] Electronically authenticated by: ILENE MERCADO Date: 2022-06-19 07:24[facility] ACOG PANEL 2: 21 to 29on 01-03-2022..NormalThe White HospitalComment on above:Performed By: #### YANE LARSON #### [facility] [address] [place] [address] Dr. Hans Kaplan Gdln ACOG Wbfdzpk92-02RljyckWizTrumbull Regional Medical CenterComment on above:Performed By: #### YANE LARSON #### [facility] [address] [place] [address] Dr. Hans MunizDIAGNOSIS:CommentClinton Memorial Hospitalment on above: Result Comment: NEGATIVE FOR INTRAEPITHELIAL LESION OR MALIGNANCY.Performed By: #### YANE LARSON #### [facility] [address] [place] [address] Dr. Hans MunizMethodology:CommentTrinity Health System on above: Result Comment: This liquid based ThinPrep(R) pap test was screened with the use of an image guided system.Performed By: #### NEO UMICRO #### [place] [address] Dr[address] Hans MunizNote:CommentTrinity Health System on above:Result Comment: The Pap smear is a screening test designed to aid in the detection of premalignant and malignant conditions of the uterine cervix. It is not a diagnostic procedure and should not be used as the sole means of detecting cervical cancer. Both false-positive and false-negative reports do occur. .Performed By: #### NEO UMICRO #### [place] [address] Dr[address] Hans MunizPerformed by:CommentTrinity Health System on above: Result Comment: Marlene Silva CytotechnologistPerformed By: #### NEO UMICRO #### [place] [address] Dr[address] Hans MunizReflex Criteria:CommentTrinity Health System on above:Result Comment: The HPV DNA reflex criteria were not met with this specimen result therefore, no HPV testing was performed. .Performed By: #### ERULucia UMICRO #### [place] [address] Dr[address] Hans MunizSpecimen adequacy:CommentTrinity Health System on above:Result Comment: Satisfactory for evaluation. Endocervical and/or squamous metaplastic cells (endocervical component) are present.Performed By: #### ERUR UMICRO #### [place] [address] Dr[address] Hans MunizCHLAMYDIA/GONOCOCCUS BALTAZAR (SWAB/URINE/PAPon 02-47-8813Xoislgtng trachomatis, NAANegativeNormalNegativeThe [facility] on above: Performed By: #### GIPANEL #### [facility] [address] [place] [address] Dr. Hans Quachisseria gonorrhoeae, NAANegativeNormalNegativeLima City HospitalComment on above:Performed By: #### GIPANEL #### [facility] [address] [place] [address] Dr. Hans MunizVAGINITIS/VAGINOSIS DNA PROBEon 27-66-5711Olebbfk speciesNegative NormalNegativeLima City HospitalComment on above:Performed By: #### GIPGULSHANL #### [facility] [address] [place] [address] Dr. Hans Longdnerella vaginalisPositiveAbnormalNegativeThe White HospitalComment on above:Performed By: #### GIPGULSHANL #### [facility] [address] [place] [address] Dr. Hans MunizTrichomonas vaginalisNegativeNormalNegativeLima City Hospital Comment on above:Performed By: #### HARI #### [facility] [address] [place] [address] Dr. Hans SuttonTIS PANEL, ACUTEon 35-35-4819NVmBy ScreenNegativeNormal NegativeLima City HospitalComment on above:Performed By: #### YANE LARSON #### [facility] [address] [place] [address] Dr. Hans Corona Ab, IgMNegativeNormalNegativeThe White HospitalComment on above:Performed By: #### YANE LARSON #### [facility] [address] [place] [address] Dr. Hans Jacques Core Ab, IgMNegativeNormalNegativeLima City Hospital Comment on above:Performed By: #### YANE LARSON #### [facility] [address] [place] [address] Dr. Hans Segal Virus Ab<0.0Rkscnj4.0-0.9L[facility] City HospitalComment on above:Result Comment: Negative: < 0.8 Indeterminate: 0.8 - 0.9 Positive: > 0.9 . The CDC recommends that a positive HCV antibody result be followed up with a HCV Nucleic Acid Amplification test (070906). Effective February 06, 2022 Hepatitis Panel (4) will be made non-orderable. [facility] offers order code [id number] Acute Hepatitis.Performed By: #### YANE ALRSON #### [facility] [address] [place] [address] Dr. Hans Duff SIMPLEX 1/2 IGGon 78-28-8956NDK 1 IgG, Type Spec37.40 indexCritically high0.00-0.90L[facility] City HospitalComment on above:Result Comment: Negative <0.91 Equivocal 0.91 - 1.09 Positive >1.09 Note: Negative indicates no antibodies detected to HSV-1. Equivocal may suggest early infection. If clinically appropriate, retest at later date. Positive indicates antibodies detected to HSV-1.Performed By: #### HSV IGG #### [facility] [address] [place] [address] Dr. Hans Mcgill 2 IgG Type Spec<0.35Iufwbs5.00-0.90[facility] Comment on above:Result Comment: Negative <0.91 Equivocal 0.91 - 1.09 Positive >1.09 Note: Negative indicates no HSV-2 antibodies detected. Positive indicates HSV-2 antibodies detected. Equivocal and low positive HSV-2 screens (Index 0.91-5.00) may be false positive and are reflexed to supplemental testing in accordance with CDC guidelines.Performed By: #### HSV IGG #### [facility] [address] [place] [address] Dr. Hans Duff SIMPLEX 1/2 IGMon 88-62-3196VAM, IgM I/II Combination<0.91 Normal0.00-0.90The White HospitalComment on above:Result Comment: Negative <0.91 Equivocal 0.91 - 1.09 Positive >1.09Performed By: #### HSVIGM #### [facility] [address] [place] [address] Dr. Hans Martinez 1 AND 2 WITH REFLEXon 14-00-5749EBM Screen 4th Generation wRfxNon-ReactiveNormalNon ReactiveThe White HospitalComment on above:Result Comment: HIV Negative HIV-1/HIV-2 antibodies and HIV-1 p24 antigen were NOT detected. There is no laboratory evidence of HIV infection.Performed By: #### HARI #### [facility] [address] [place] [address] Dr. Hans Groves QUANTon 48-44-1557Qntrz Plasma Reagin, QuantNon-Reactive NormalNonRea<1:1The White HospitalComment on above:Performed By: #### YANE LARSON #### [facility] [address] [place] [address] Dr. Hans Hodge AUTO DIFFon 84-96-4509SUDZ #0.0 103/ulNormal0.0-0.1The White HospitalComment on above:Performed By: #### YANE LARSON #### [facility] [address] [place] [address] Dr. Hans MunizBasophils/100 WBC (Bld)0.7 %Normal0.2-2.0[facility] Comment on above:Performed By: #### YANE LARSON #### [facility] [address] [place] [address] Dr. Hans Munson #0.1 103/ulNormal0.0-0.7The White HospitalComment on above: Performed By: #### YANE LARSON #### [facility] [address] [place] [address] Dr. Hans Mcallisterosinophils/100 WBC (Bld)1.2 %Normal0.9-7.0[facility] Comment on above:Performed By: #### YANE LARSON #### [facility] [address] [place] [address] Dr. Hans Mcallisterrythrocyte distribution width (RBC) [Ratio]14.1 %Cdilru03.0-15.0 The White HospitalComment on above:Performed By: #### YANE LARSON #### [facility] [address] [place] [address] Dr. Hans MuinzHematocrit (Bld) [Volume fraction]41.3 %Yzgply03.0-48.0The White HospitalComment on above:Performed By: #### NEO UMICRO #### [facility] [address] [place] [address] Dr. Hans MunizHemoglobin (Bld) [Mass/Vol]13.3 g/aAIyzrde89.0-16.0The [facility] HospitalComment on above:Performed By: #### NEO UMICRO #### [facility] [address] [place] [address] Dr. Hans Tan #0.01 10e3/ulNormal0.00-0.03The White HospitalComment on above:Performed By: #### NEO UMICRO #### [facility] [address] [place] [address] Dr. Hans Tan %0.2 %Normal0.0-0.5The White HospitalComment on above: Performed By: #### NEO UMICRO #### [facility] [address] [place] [address] Dr. Hans Mcmillan #1.1 103/ulCritically low1.2-3.8[facility] Comment on above:Performed By: #### NEO UMICRO #### [facility] [address] [place] [address] Dr. Hans Corbinmphocytes/100 WBC (Bld)25.2 %Bbzjsl94.5-60.0The White HospitalComment on above:Performed By: #### NEO UMICRO #### [facility] [address] [place] [address] Dr. Hans ChristineUAL DIFF REQNONormalThe White HospitalComment on above: Performed By: #### NEO UMICRO #### [facility] [address] [place] [address] Dr. Hans Martinez (RBC) [Entitic mass]26.7 fsSxawav25.7-34.0The White HospitalComment on above:Performed By: #### NEO UMICRO #### [facility] [address] [place] [address] Dr. Hans Pettit (RBC) [Mass/Vol]32.2 g/tBDdwuhs06.9-35.2The White HospitalComment on above:Performed By: #### NEO UMICRO #### [facility] [address] [place] [address] Dr. Hans Pettit (RBC) [Entitic vol]82.8 lZNvgazv05.0-99.0The White HospitalComment on above:Performed By: #### NEO UMICRO #### [facility] [address] [place] [address] Dr. Hans Lunsford #0.4 103/ulNormal0.3-0.8The White HospitalComment on above:Performed By: #### NEO UMICRO #### [facility] [address] [place] [address] Dr. Hans Annocytes/100 WBC (Bld)9.3 %Normal1.7-12.0[facility] Comment on above:Performed By: #### NEO UMICRO #### [facility] [address] [place] [address] Dr. Hans Knapp #2.7 103/ulNormal1.4-6.5The White HospitalComment on above:Performed By: #### NEO UMICRO #### [facility] [address] [place] [address] Dr. Hans Quachutrophils/100 WBC (Bld)63.4 %Flkdep62.0-75.0The White HospitalComment on above:Performed By: #### NEO UMICRO #### [facility] [address] [place] [address] Dr. Hans Davieslet mean volume (Bld) [Entitic vol]9.6 fLNormal9.5-13.5The White HospitalComment on above:Performed By: #### SHAWN LARSONRO #### [facility] [address] [place] [address] Dr. Hans MunizPLT252 103/kpNfjdkd214-869Vdj White HospitalComment on above: Performed By: #### YANE LARSON #### [facility] [address] [place] [address] Dr. Hans MunizRBC4.99 106/ulNormal4.20-5.40The White HospitalComment on above:Performed By: #### SHAWN LARSONRO #### [facility] [address] [place] [address] Dr. Hans MunizWBC4.2 103/ulNormal4.0-11.0The [facility] HospitalComment on above: Performed By: #### YANE LARSON #### [facility] [address] [place] [address] Dr. Hans Ralph PANEL (PCR)on 95-59-1956Ewgzlsgkym F 40/41Not detectedNormal NOT DETECTEDThe White HospitalComment on above:Performed By: #### HARI #### [facility] [address] [place] [address] Dr. Hans MunizAstrovirusDetectedAbnormalNOT DETECTEDThe [facility] Comment on above:Performed By: #### NEVAL #### [facility] [address] [place] [address] Dr. Hans Edmond. Diff toxin A/BDetectedCritically abnormalNOT DETECTEDThe White HospitalComment on above:Performed By: #### NEVAL #### [facility] [address] [place] [address] Dr. Hans VillapylobacterNot detectedNormalNOT DETECTEDThe [facility] Comment on above:Performed By: #### NEVAL #### [facility] [address] [place] [address] Dr. Hans MunizCryptosporidiumNot detectedNormalNOT DETECTEDThe [facility] HospitalComment on above:Performed By: #### GIPANEL #### [facility] [address] [place] [address] [address] Hans Larios. CayetanensisNot detectedNormalNOT DETECTEDThe White HospitalComment on above:Performed By: #### GIPANEL #### [facility] [address] [place] [address] [address] Hans Mora Coli A880Gjs ApplicableNormalNot ApplicableThe White HospitalComment on above:Performed By: #### GIPANEL #### [facility] [address] [place] [address] [address] Hans Mora histolyticaNot detectedNormalNOT DETECTEDThe [facility] Comment on above:Performed By: #### GIPANEL #### [facility] [address] [address] [address] Hans McallisterAECNot detectedNormalNOT DETECTEDThe White HospitalComment on above:Performed By: #### GIPANEL #### [facility] [address] [address] [address] Hans McallisterIECNot detectedNormalNOT DETECTEDThe White HospitalComment on above:Performed By: #### GIPANEL #### [facility] [address] [place] [address] [address] Hans McallisterPECNot detectedNormalNOT DETECTEDThe [facility] HospitalComment on above:Performed By: #### SONIAANEL #### [facility] [address] [address] [address] Hans McallisterTECNot detectedNormalNOT DETECTEDThe [facility] HospitalComment on above:Performed By: #### GIPANEL #### [facility] [address] [address] [address] Hans Farris. LambliaNot detectedNormalNOT DETECTEDThe [facility] Comment on above:Performed By: #### GIPANEL #### [facility] [address] [place] [address] [address] Hans Cifuentes CONTROLSPASSEDNormalThe White HospitalComment on above:Performed By: #### GIPANEL #### [facility] [address] [place] [address] [address] Hans Lindsay JAMES HEADERGI [facility] Comment on above:Performed By: #### NEVAL #### [facility] [address] [place] [address] [address] Hans Goodwin ECOLIGI PANEL DIARRHEAGENIC E.COLI / SHIGELLAMercy Health Clermont HospitalComment on above:Performed By: #### HARI #### [facility] [address] [address] [address] Hans Goodwin INFOSEE OhioHealthComment on above: Result Comment: EAEC- Enteroaggregative E. Coli EPEC- Enteropathogenic E. Coli ETEC- Enterotoxigenic E. Coli lt/st STEC- Shigella-like toxin-producing E. Coli stx1/stx2 EIEC- Shigella/Enteroinvasive E. ColiPerformed By: #### HARI #### [facility] [address] [place] [address] Dr. Hans Goodwin PARASITESGI [facility] PARASITESMercy Health Clermont Hospital Comment on above:Performed By: #### HARI #### [facility] [address] [place] [address] Dr. Hans Goodwin VIRUSGI [facility] HospitalComment on above:Performed By: #### HARI #### [facility] [address] [address] [address] Hans Kelleyrovirus GI/GIINot detectedNormalNOT DETECTEDThe White HospitalComment on above:Performed By: #### HARI #### [facility] [address] [address] [address] Hans Chung. ShigelloidesNot detectedNormalNOT DETECTEDThe White HospitalComment on above:Performed By: #### HARI #### [facility] [address] [address] [address] Hans MunizRotavirus ANot detectedNormalNOT DETECTEDThe [facility] Comment on above:Performed By: #### NEVAL #### [facility] [address] [address] [address] Hans MunizSalmonellaNot detectedNormalNOT DETECTEDThe [facility] Comment on above:Performed By: #### NEVAL #### [facility] [address] [address] [address] Hans MunizSapovirusNot detectedNormalNOT DETECTEDThe [facility] Comment on above:Performed By: #### SONIAANEL #### [facility] [address] [address] [address] Hans MunizSTECNot detectedNormalNOT DETECTEDThe [facility] HospitalComment on above:Performed By: #### NEVAL #### [facility] [address] [address] [address] Hans AlfonsobrioNot detectedNormalNOT DETECTEDThe [facility] HospitalComment on above:Performed By: #### NEVAL #### [facility] [address] [address] [address] Hans Ortegaio CholeraNot detectedNormalNOT DETECTEDLima City Hospital Comment on above:Performed By: #### NEVAL #### [facility] [address] [place] [address] Dr. Hans Marshall. EnterocoliticaNot detectedNormalNOT DETECTEDThe [facility] HospitalComment on above:Performed By: #### NEVAL #### [facility] [address] [address] [address] Hans Quintana 14(COMP METB)on 45-70-2891Uswehxq [Mass/Vol]3.6 g/dLNormal 3.5-5.0The [facility] HospitalComment on above:Performed By: #### NEVAL #### [facility] [address] [place] [address] Dr. Hans MunizAlbumin/Globulin [Mass ratio]0.9 {ratio}NormalThe White HospitalComment on above:Performed By: #### NEVAL #### [facility] [address] [address] [address] Hans Peterson [Catalytic activity/Vol]80 U/RQlqxsp80-862Ebb White HospitalComment on above:Performed By: #### GIPANEL #### [facility] [address] [address] [address] Hans PerezT [Catalytic activity/Vol]41 U/LNormal9-52[facility] Comment on above:Performed By: #### GIPANEL #### [facility] [address] [address] [address] Hans Fulleron gap [Moles/Vol]9.8 mmol/LNormalThe White HospitalComment on above:Performed By: #### GIPANEL #### [facility] [address] [address] [address] Hans MunizAST [Catalytic activity/Vol]34 U/DKnzjke15-42Ytw [facility] HospitalComment on above:Performed By: #### GIPANEL #### [facility] [address] [address] [address] Hans MunizBilirubin [Mass/Vol]0.3 mg/dLNormal0.2-1.3TCleveland Clinic [facility] Comment on above:Performed By: #### GIPANEL #### [facility] [address] [address] [address] Hans MunizCalcium [Mass/Vol]8.8 mg/dLNormal8.4-10.2[facility] Comment on above:Performed By: #### GIPANEL #### [facility] [address] [address] [address] Hans MunizChloride [Moles/Vol]105 mmol/YYtjhtv31-238Kmn [facility] Comment on above:Performed By: #### GIPANEL #### [facility] [address] [address] [address] Hans MunizCO2 [Moles/Vol]24.2 mmol/VPsyupe12.0-30.0[facility] Comment on above:Performed By: #### GIPANEL #### [facility] [address] [address] [address] Hans MunizCreatinine [Mass/Vol]0.76 mg/dLNormal0.52-1.04The [facility] HospitalComment on above:Performed By: #### GIPANEL #### [facility] [address] [address] [address] Hans McallisterGFR-AF GUYANESE>60Normal>=60The White HospitalComment on above:Performed By: #### GIPANEL #### [facility] [address] [address] [address] Hans McallisterGFR-NON AF GUYANESE>60Normal>=60The [facility] HospitalComment on above:Performed By: #### GIPANEL #### [facility] [address] [address] [address] Hans MunizGlobulin (S) [Mass/Vol]4.1 g/dLNormalThe White HospitalComment on above:Performed By: #### GIPANEL #### [facility] [address] [address] [address] Hans MunizGlucose [Mass/Vol]99 mg/sUYbboka71-018Itj [facility] Comment on above:Performed By: #### GIPANEL #### [facility] [address] [address] [address] Hans MunizPotassium [Moles/Vol]3.0 mmol/LCritically low3.4-5.0The [facility] HospitalComment on above:Performed By: #### GIPANEL #### [facility] [address] [address] [address] Hans MunizProtein [Mass/Vol]7.7 g/dLNormal6.1-8.2[facility] Comment on above:Performed By: #### GIPANEL #### [facility] [address] [address] [address] Hans MunizSodium [Moles/Vol]135 mmol/LCritically xmg031-099Srd White HospitalComment on above:Performed By: #### GIPANEL #### [facility] [address] [address] [address] Hans MunizUrea nitrogen [Mass/Vol]10.0 mg/dLNormal7.0-17.0The [facility] HospitalComment on above:Performed By: #### GIPANEL #### [facility] [address] [place], [place] [address] Dr. Hans MunizUrea nitrogen/Creatinine [Mass ratio]13.2 mg/mgNoTrumbull Regional Medical CenterComment on above:Performed By: #### GIPANEL #### [facility] [address] [address] [address] Hans MunizXR CHEST 2 Von [id number] CHEST 2 VThis study was read during a downtime in the [employer] PACS system. The actual time dictated and [...] Electronically authenticated by: MELINDA LANE Date: 2021-11-16 10:10[facility] HospitalXR RIBS RT NO CH 2Von [id number] RIBS RT NO CH 2VEXAMINATION: XR RIBS RT NO CH 2V HISTORY: Pleuritic pain COMPARISON: No relevant comparison available. FINDINGS: RIBS: Normal. No significant arthropathy or acute abnormality. LUNGS: No appreciable pneumothorax or pleural thickening. OTHER: Negative. IMPRESSION: 1. No appreciable right rib abnormality. Electronically authenticated by: ILENE MERCADO Date: 2021-11-16 06:53NoTrumbull Regional Medical CenterMG MAMM DIAGNOSTIC 3D POLINA CADon [id number] MAMM DIAGNOSTIC 3D POLINA CADPatient: BRIAN SULLIVAN. Exam Date: 11/15/2021 : 1995 Gender:F Ordering : DR SHAUN AVILES Admission #: [id number] Family : Order #: [id number] CLICK HERE TO VIEW EXAM RADIOLOGY REPORT [...] ovarian cancer at age 52. LOCATION: [facility] BREAST COMPOSITION: Extremely dense, which lowers [...] by: Ilene Mercado M.D. on 11/15/2021 at 12:01[facility] Clermont HospitalUS BREAST POLINA LIMITEDon [id number] BREAST POLINA LIMITEDPatient: BRIAN SULLIVAN Exam Date: 11/15/2021 : 1995 Gender:F Ordering : DR SHAUN AVILES Admission #: [id number] Family : Order #: [id number] CLICK HERE TO VIEW EXAM RADIOLOGY REPORT [...] ovarian cancer at age 52. LOCATION: [facility] BREAST COMPOSITION: Extremely dense, which lowers [...] by: Ilene Mercado M.D. on 11/15/2021 at 12:01NoTrumbull Regional Medical CenterFERRITINon 80-27-9673Enjtyreg [Mass/Vol]12 ng/mLCritically sbd18-313Llj [facility] HospitalComment on above:Performed By: #### GIPGULSHANL #### [facility] [address] [place] [address] Dr. Hans Jones 25-[place] LABCORPon 39-58-6418Aidvrbd D, 25-Maoesno60.8 ng/mL Critically low30.0-100.0The White HospitalComment on above:Result Comment: Vitamin D deficiency has been defined by the [place] of [employer] and an Endocrine Society practice guideline as a level of serum 25-OH vitamin D less than 20 ng/mL (1,2). The Endocrine Society went on to further define vitamin D insufficiency as a level between 21 and 29 ng/mL (2). 1. IOM ([place] of [employer]). 2010. Dietary reference intakes for calcium and D. [place]: The National Academies Press. 2. Monique MF, [place], Matt TAYLOR, et al. Evaluation, treatment, and prevention of vitamin D deficiency: an Endocrine Society clinical practice guideline. JCEM. 2010; 96(7):1911-30.Performed By: #### NEVAL #### [facility] [address] [place] [address] Dr. Hans MontesC AUTO DIFFon [id number] #0.0 103/ulNormal0.0-0.1[facility] City HospitalComment on above:Performed By: #### NEVAL #### [facility] [address] [place] [address] Dr. Hans MunizBasophils/100 WBC (Bld)0.4 %Normal0.2-2.0[facility] Comment on above:Performed By: #### NEVAL #### [facility] [address] [place] [address] Dr. Hans Munson #0.2 103/ulNormal0.0-0.7The [facility] HospitalComment on above: Performed By: #### GIPANEL #### [facility] [address] [place] [address] Dr. Hans Mcallisterosinophils/100 WBC (Bld)3.1 %Normal0.9-7.0[facility] Comment on above:Performed By: #### GIPANEL #### [facility] [address] [place] [address] Dr. Hans Mcallisterrythrocyte distribution width (RBC) [Ratio]14.3 %Iklrir52.0-15.0 The White HospitalComment on above:Performed By: #### HARI #### [facility] [address] [place] [address] Dr. Hans MunizHematocrit (Bld) [Volume fraction]38.3 %Lvvrla00.0-48.0The [facility] HospitalComment on above:Performed By: #### HARI #### [facility] [address] [place] [address] Dr. Hans MunizHemoglobin (Bld) [Mass/Vol]12.0 g/kRXligtk74.0-16.0The [facility] HospitalComment on above:Performed By: #### HARI #### [facility] [address] [place] [address] Dr. Hans Tan #0.02 10e3/ulNormal0.00-0.03The [facility] HospitalCommymichigan medical center [facility] on above:Performed By: #### HARI #### [facility] [address] [place] [address] Dr. Hans Tan %0.3 %Normal0.0-0.5The [facility] HospitalComment on above: Performed By: #### HARI #### [facility] [address] [place] [address] Dr. Hans CorbinMPH #1.9 103/ulNormal1.2-3.8The White HospitalCommymichigan medical center [facility] on above:Performed By: #### HARI #### [facility] [address] [place] [address] Dr. Hans Corbinmphocytes/100 WBC (Bld)27.4 %Pflcul77.5-60.0The [facility] HospitalComment on above:Performed By: #### HARI #### [facility] [address] [place] [address] Dr. Hans ChristineUAL DIFF REQNONormalThe White HospitalComment on above: Performed By: #### HARI #### [facility] [address] [place] [address] Dr. Hans Pettit (RBC) [Entitic mass]26.2 pgCritically low26.7-34.0The White HospitalComment on above:Performed By: #### GIPANEL #### [facility] [address] [place] [address] Dr. Hans Pettit (RBC) [Mass/Vol]31.3 g/pXXyfrgg17.9-35.2The [facility] Points HospitalComment on above:Performed By: #### GIPANEL #### [facility] [address] [place] [address] Dr. Hans Pettit (RBC) [Entitic vol]83.6 aANzytos49.0-99.0The White HospitalComment on above:Performed By: #### GIPANEL #### [facility] [address] [place] [address] Dr. Hans Lunsford #0.3 103/ulNormal0.3-0.8The White HospitalComment on above:Performed By: #### GIPANEL #### [facility] [address] [place] [address] Dr. Hans Annocytes/100 WBC (Bld)4.4 %Normal1.7-12.0[facility] Comment on above:Performed By: #### GIPANEL #### [facility] [address] [place] [address] Dr. Hans Knapp #4.3 103/ulNormal1.4-6.5The White HospitalComment on above:Performed By: #### GIPANEL #### [facility] [address] [place] [address] Dr. Hans Quachutrophils/100 WBC (Bld)64.4 %Wybquz85.0-75.0The White HospitalComment on above:Performed By: #### GIPANEL #### [facility] [address] [place] [address] Dr. Hans Davieslet mean volume (Bld) [Entitic vol]9.5 fLNormal9.5-13.5The White HospitalComment on above:Performed By: #### NEVAL #### [facility] [address] [place] [address] Dr. Hans MunizPLT296 103/xsUmzebp715-993Vvm White HospitalComment on above: Performed By: #### NEVAL #### [facility] [address] [place] [address] Dr. Hans MunizRBC4.58 106/ulNormal4.20-5.40The White HospitalComment on above:Performed By: #### NEVAL #### [facility] [address] [place] [address] Dr. Hans MunizWBC6.8 103/ulNormal4.0-11.0The White HospitalComment on above: Performed By: #### HARI #### [facility] [address] [place] [address] Dr. Hans MunizFRKADIE T4on 20-58-2118Khrl T4 [Mass/Vol]1.04 ng/dLNormal0.78-2.19 [facility] HospitalComment on above:Performed By: #### FT4 #### [facility] [address] [place] [address] Dr. Hans MunizGLYCOHEMOGLOBIN A1Con [id number] RECOMMENDATIONADA THERAPEUTIC TARGET 6.0 - 7.0 ACTION SUGGESTED > 7.0NormTriHealth Bethesda North HospitalComment on above:Performed By: #### NEVAL #### [facility] [address] [place] [address] Dr. Hans MunizGlucose [Mass/Vol]91 mg/dLNoTrumbull Regional Medical CenterComment on above:Performed By: #### NEVAL #### [facility] [address] [place] [address] Dr. Hans MunizHbA1c (Bld) [Mass fraction]4.8 %Normal<=6.0[facility] Comment on above:Performed By: #### NEVAL #### [facility] [address] [place] [address] Dr. Hans RamirezID PROFILEon [id number]-HDL RATIO NORMSSelect Medical [facility] Clinic [facility] Hospital, Edwin ShawComment on above:Result Comment: 3.3 - 4.4 LOW RISK 4.4 - 7.1 AVERAGE RISK 7.1 - 11.0 MODERATE RISK >11.0 HIGH RISKPerformed By: #### LIPID, TSH, CMP #### [facility] [address] [address] [address] Hans MunizCholesterol [Mass/Vol]156 mg/dLNormal<=200[facility] Comment on above:Performed By: #### LIPID, TSH, CMP #### [facility] [address] [place] [address] Dr. Hans MunizCholesterol in HDL [Mass/Vol]46 mg/dLMer[facility] Health [facility] Comment on above:Performed By: #### LIPID, TSH, CMP #### [facility] [address] [place] [address] Dr. Hans MunizCholesterol in LDL [Mass/Vol]92.0 mg/dLMercy Health Clermont HospitalComment on above:Performed By: #### LIPID, TSH, CMP #### [facility] [address] [place] [address] Dr. Hans Arellanoesterdena.total/Cholesterol in HDL [Mass ratio]3.4 {ratio} NormalLima City HospitalComment on above:Performed By: #### LIPID, TSH, CMP #### [facility] [address] [place] [address] Dr. Hans SkinnerL NORMAL> or = 60 mg/dl - LOW CARDIOVASCULAR RISK <40 mg/dl - HIGH CARDIOVASCULAR RISKMercy Health Clermont HospitalComment on above:Performed By: #### LIPID, TSH, CMP #### [facility] [address] [place] [address] Dr. Hans MunizLDL CALC NORMALSEE OhioHealthComment on above:Result Comment: <100 mg/dl OPTIMAL 100 - 129 mg/dl NEAR OR ABOVE OPTIMAL 130 - 159 mg/dl BORDERLINE HIGH 160 - 189 mg/dl HIGH >190 mg/dl VERY HIGH Performed By: #### LIPID, TSH, CMP #### [facility] [address] [address] [address] Hans MunizTriglyceride [Mass/Vol]90 mg/dLNormal<=150[facility] Comment on above:Performed By: #### LIPID, TSH, CMP #### [facility] [address] [address] [address] Hans MunizVLDL CALC18.0 mg/dLNormalThe White HospitalComment on above: Performed By: #### LIPID, TSH, CMP #### [facility] [address] [place] [address] Dr. Hans Quintana 14(COMP METB)on [id number] [Mass/Vol]3.3 g/dL Critically low3.5-5.0[facility] HospitalComment on above:Performed By: #### YANE LARSON #### [facility] [address] [place] [address] Dr. Hans MunizAlbumin/Globulin [Mass ratio]0.8 {ratio}NormalLima City HospitalComment on above:Performed By: #### YANE LARSON #### [facility] [address] [place] [address] Dr. Hans Peterson [Catalytic activity/Vol]72 U/RZzykjl98-641Kzw White HospitalComment on above:Performed By: #### YANE LARSON #### [facility] [address] [place] [address] Dr. Hans Gray [Catalytic activity/Vol]41 U/LNormal9-52[facility] Comment on above:Performed By: #### YANE LARSON #### [facility] [address] [place] [address] Dr. Hasn Cardona gap [Moles/Vol]11.5 mmol/LNormalThe [facility] Comment on above:Performed By: #### YANE LARSON #### [facility] [address] [address] [address] Hans MunizAST [Catalytic activity/Vol]22 U/FMtsdpo33-59Liv White HospitalComment on above:Performed By: #### NEO UMICRO #### [facility] [address] [place] [address] Dr. Hans MunizBilirubin [Mass/Vol]0.6 mg/dLNormal0.2-1.3[facility] Comment on above:Performed By: #### NEO UMICRO #### [facility] [address] [place] [address] Dr. Hans MunizCalcium [Mass/Vol]8.7 mg/dLNormal8.4-10.2[facility] Comment on above:Performed By: #### NEO UMICRO #### [facility] [address] [place] [address] Dr. Hans MunizChloride [Moles/Vol]105 mmol/DSrcjeo19-009Yuz [facility] Comment on above:Performed By: #### NEO UMICRO #### [facility] [address] [place] [address] Dr. Hans MunizCO2 [Moles/Vol]25.0 mmol/DTcrksw09.0-30.0[facility] Comment on above:Performed By: #### NEO UMICRO #### [facility] [address] [place] [address] Dr. Hans MunizCreatinine [Mass/Vol]0.68 mg/dLNormal0.52-1.04The White HospitalComment on above:Performed By: #### NEO UMICRO #### [facility] [address] [place] [address] Dr. Hans McallisterGFR-AF GUYANESE>60Normal>=60The White HospitalComment on above:Performed By: #### NEO, UMICRO #### [facility] [address] [place] [address] Dr. Hans McallisterGFR-NON AF GUYANESE>60Normal>=60The [facility] HospitalComment on above:Performed By: #### NEO UMICRO #### [facility] [address] [address] [address] Hans MunizGlobulin (S) [Mass/Vol]3.9 g/dLNormTriHealth Bethesda North HospitalComment on above:Performed By: #### NEO UMICRO #### [facility] [address] [place] [address] Dr. Hans MunizGlucose [Mass/Vol]80 mg/pWNsqoyf60-348Odo [facility] Comment on above:Performed By: #### NEO UMICRO #### [facility] [address] [place] [address] Dr. Hans MunizPotassium [Moles/Vol]3.5 mmol/LNormal3.4-5.0[facility] Comment on above:Performed By: #### NEO UMICRO #### [facility] [address] [place] [address] Dr. Hans MunizProtein [Mass/Vol]7.2 g/dLNormal6.1-8.2[facility] Comment on above:Performed By: #### NEO UMICRO #### [facility] [address] [place] [address] Dr. Hans MunizSodium [Moles/Vol]138 mmol/TCrqkxb107-612XrdLima City Hospital Comment on above:Performed By: #### NEO UMICRO #### [facility] [address] [place] [address] Dr. Hans MunizUrea nitrogen [Mass/Vol]6.0 mg/dLCritically low7.0-17.0[facility] HospitalComment on above:Performed By: #### NEO UMICRO #### [facility] [address] [place] [address] Dr. Hans Harden nitrogen/Creatinine [Mass ratio]8.8 mg/mgNoTrumbull Regional Medical CenterComment on above:Performed By: #### NEO UMICRO #### [facility] [address] [place] [address] Dr. Hans William 31-08-7633FHW5.629 uIU/mLNormal0.470-4.680[facility] HospitalComment on above:Performed By: #### YANE LARSON #### [facility] [address] [address] [address] Hans MunizRiverview Health InstituteComment on above: Result Comment: <0.34 UIU/ml HYPERTHYROID 0.34-5.60 UIU/ml EUTHYROID >5.60 UIU/ml HYPOTHYROIDPerformed By: #### SHAWN LARSONRO #### [facility] [address] [address] [address] Hans Muniz Vital Signs Date TimeVital SignValuePerforming SftnzukddKsogmcym42-12-1063 09:03-0400Body hlzluq32.91 kgShaun Monzons DO Work Phone: [phone] [place], [place] 5745510-29-2025 09:03-0400 Diastolic blood kizbvaot43 mm[Hg]Shaun Aviles DO Work Phone: 3(779)1-[address] [place], [place] 5745510-29-2025 09:03-0400 Heart rate79 /minShaun Aviles DO Work Phone: [phone] [place], [place] 5745510-29-2025 09:03-0400 SaO2% (BldA) [Mass fraction]99 %Shaun Monzons DO Work Phone: [phone])1-[address] [place], [place] 5745510-29-2025 09:03-0400 Systolic blood jlaonuhn588 mm[Hg]Shaun Aviles DO Work Phone: [phone] [place], [place] 5745510-07-2025 14:22-0400 Body .02 cmShaun Monzons DO Work Phone: 8(539)5-[address] [place], [place] 5745510-07-2025 14:22-0400 Body mass index (BMI) [Ratio]23.2 kg/c4EdeedShaun Monzons DO Work Phone: [phone] [place], [place] 5745510-07-2025 14:22-0400 Body udqqpd17.42 kgShaun Aviles DO Work Phone: [facility]10-07-2025 14:22-0400 Diastolic blood cqznjafn79 mm[Hg]Shaun Monzons DO Work Phone: [facility]10-07-2025 14:22-0400 Heart rate83 /minShaun Monzons DO Work Phone: [facility]10-07-2025 14:22-0400 Systolic blood zhqhbcex422 mm[Hg]Shaun Aviles DO Work Phone: 1(239)[address]09-30-2025 13:31-0400 Body .02 cmShaun Monzons DO Work Phone: [phone])[address]09-30-2025 13:31-0400 Body mass index (BMI) [Ratio]23.2 kg/e9AqwxyShaun Aviles DO Work Phone: 1([phone] [place], [place] 5745509-30-2025 13:31-0400 Body kukrse92.42 kgShaun Aviles DO Work Phone: [facility]09-30-2025 13:31-0400 Diastolic blood spccufvq89 mm[Hg]Shaun Aviles DO Work Phone: [facility]09-30-2025 13:31-0400 Heart rate79 /minShaun Monzons DO Work Phone: 1(763)902-[address] [place], [place] 5745509-30-2025 13:31-0400 Respiratory rate18 /minShaun Monzons DO Work Phone: [phone] [place], [place] 5745509-30-2025 13:31-0400 SaO2% (BldA) [Mass fraction]99 %Shaun Monzons DO Work Phone: [facility]09-30-2025 13:31-0400 Systolic blood lgiiukwo39 mm[Hg]Shaun Nicoláss DO Work Phone: 1([phone] [place], [place] 5745509-09-2025 13:08-0400 Body ehpthq539.02 cmShaun Monzons DO Work Phone: [phone])[address]09-09-2025 13:08-0400 Body mass index (BMI) [Ratio]23 kg/i1KaxdfShaun Monzons DO Work Phone: 1(380)[address]09-09-2025 13:08-0400 Body vkinne67.96 kgShaun Monzons DO Work Phone: [phone])[address] [place], [place] 3200809-09-2025 13:08-0400 Diastolic blood mm[Hg]Shaun Monzons DO Work Phone: 1(855)[address] [place], [place] 3200809-09-2025 13:08-0400 Heart rate87 /minShaun Monzons DO Work Phone: [phone])[address] [place], [place] 3200809-09-2025 13:08-0400 Respiratory rate18 /minShaun Monzons DO Work Phone: 1(540)[address] [place], [place] 3200809-09-2025 13:08-0400 SaO2% (BldA) [Mass fraction]98 %Shaun Monzons DO Work Phone: 1(319)[address] [place], [place] 3200809-09-2025 13:08-0400 Systolic blood mm[Hg]Shaun Monzons DO Work Phone: 1(854)[facility] [place], [place] 5745508-11-2025 09:28-0400 Body yeonwr271.02 cmShaun Monzons DO Work Phone: 1(556)[address] [place], [place] 3200808-11-2025 09:28-0400 Body norrft51.51 kgShaun Monzons DO Work Phone: [phone])[address]08-05-2025 13:58-0400 Body gekkyw187.02 cmSebastiánan Nicoláss DO Work Phone: [phone] [place], [place] 3200808-05-2025 13:58-0400 Body mass index (BMI) [Ratio]22.1 kg/s8Ywvqh Kuns DO Work Phone: [facility]08-05-2025 13:58-0400 Body nrmkov84.69 kgShaun Aviles DO Work Phone: [facility]06-09-2025 12:39-0400 Body vuqogz520.02 cmSt[address] [facility]06-09-2025 12:39-0400Body mass index (BMI) [Ratio]23.2 kg/p7UgcaaecanSt. Vincent Hospital06-09-2025 12:39-0400Body zmydsk23.42 kgSt. [facility] Hospital06-09-2025 12:39-0400Diastolic blood kbnzqkdu73 mm[Hg][facility] 03-16-2025 12:39-0400Heart rate82 /[facility] 03-16-2025 12:39-0400Respiratory rate16 /[facility] 03-16-2025 12:39-2616LrI6% (BldA) [Mass fraction]98 %[facility]06-09-2025 12:39-0400Systolic blood uifbvawc366 mm[Hg][facility]03-31-2025 14:03-0400Body mass index (BMI) [Ratio]23.99 kg/a2Yqrtw Emilia DO Work Phone: [facility] CenterOqsugamnxx30-61-7083 14:03-0400Body irxvmd11.42 kgCorey Emilia DO Work Phone: [facility] CenterCjrrklxbmo01-61-6533 14:03-0400Diastolic blood ilqnwqpf86 mm[Hg]Ghanshyam Emilia DO Work Phone: [facility] CenterMhaxebewdk42-50-1847 14:03-0400Systolic blood mm[Hg]Ghanshyam Emilia DO Work Phone: [facility] CenterGzwalcpthw67-79-6497 12:37-0400Body mycbta722.02 cmSt[address] [facility] Hospital03-18-2025 12:37-0400Body mass index (BMI) [Ratio]24 kg/z7LspaohfgbSt. Vincent Hospital03-18-2025 12:37-0400Body weight 61.68 kgSt. Vincent Hospital03-18-2025 12:37-0400Diastolic blood kiyryzqw69 mm[Hg][facility]03-18-2025 12:37-0400Heart rate74 /[facility]03-18-2025 12:37-0400Respiratory rate18 /[facility]03-18-2025 12:37-3544ZxK1% (BldA) [Mass fraction]98 %[facility]03-18-2025 12:37-0400 Systolic blood tsstimkb822 mm[Hg][facility]02-04-2025 13:56-0500Body .02 cmSt. [facility] Hospital02-04-2025 13:56-0500Body mass index (BMI) [Ratio]23.7 kg/p6IatvrqtmuSt. Vincent Hospital02-04-2025 13:56-0500Body jlfzva48.78 kgSt. [facility] Hospital 11-11-2024 13:56-0500Diastolic blood ohcmjuxa46 mm[Hg][facility]02-04-2025 13:56-0500Heart rate83 /[facility] 11-11-2024 13:56-0500Systolic blood hraazbvq370 mm[Hg][facility]11-19-2024 13:47-0500Body hqluki143.02 cmShaun Monzons DO Work Phone: [facility]11-19-2024 13:47-0500 Body mass index (BMI) [Ratio]23.9 kg/a0Lisnc Kuns DO Work Phone: [facility]11-19-2024 13:47-0500 Body .23 kgSebastiánjairon Nicoláss DO Work Phone: [facility]11-19-2024 13:47-0500 Diastolic blood uhkbaoge24 mm[Hg]Shaun Aviles DO Work Phone: [facility]11-19-2024 13:47-0500 Heart rate72 /minShaun Aviles DO Work Phone: [facility]11-19-2024 13:47-0500 Respiratory rate18 /minShaun Monzons DO Work Phone: 1([phone] [place], [place] 4487511-19-2024 13:47-0500 SaO2% (BldA) [Mass fraction]97 %Shaun Aviles DO Work Phone: 1(258)649-[address] [place], [place] 5745511-19-2024 13:47-0500 Systolic blood vnknyxpn049 mm[Hg]Shaun Monzons DO Work Phone: 1(043)[address]10-24-2024 13:02-0400 Body mass index (BMI) [Ratio]23.2 kg/m2DO Shaun Aviles Work Phone: 1(446)[address]10-24-2024 13:02-0400 Diastolic blood yixbgwkj93 mm[Hg]DO Shaun Aviles Work Phone: 1([phone])8-[address] [place], [place] 5745510-24-2024 13:02-0400 Heart rate83 /minDO Shaun Aviles Work Phone: 9(362)5-[address] [place], [place] 5745510-24-2024 13:02-0400 Systolic blood ywbmmbhh481 mm[Hg]DO Shaun Aviles Work Phone: 1(127)2-[address] [place], [place] 5745510-24-2024 12:58-0400 Body .02 cmDO Shaun Monzons Work Phone: 1(887)[address] [place], [place] 5745510-24-2024 12:58-0400 Body kbruvb02.42 kgDO Shaun Monzons Work Phone: 4(681)5-[address] [place], [place] 5745510-03-2024 15:49-0400 Body lrrqboetltv86.01 [degF]Cassandra GEIGER Work Phone: [facility] CenterFtnqwwutkt69-24-3381 15:49-0400Diastolic blood mm[Hg]Cassandra GEIGER Work Phone: [facility] CenterHznoewbcsm31-68-8236 15:49-0400Heart rate75 /min Cassandra Gonzalez PA Work Phone: [facility] CenterAsmplaarxf33-81-8665 15:49-8786HwT3% (BldA) [Mass fraction]98 %Cassandra Sandovalchely PA Work Phone: [facility] CenterYtnwibwrqp31-37-9598 15:49-0400Systolic blood mukhduux796 mm[Hg]Cassandra Jaimechely PA Work Phone: [facility] CenterCdrrwgcdjp58-01-8855 14:50-0400Diastolic blood ijhvdhta93 mm[Hg]DO Shaunjairon Aviles Work Phone: [facility]09-24-2024 14:50-0400 Heart rate56 /Jad Aviles Work Phone: [facility]09-24-2024 14:50-0400 Respiratory rate16 /minDO Shaun Aviles Work Phone: [facility]09-24-2024 14:50-0400 SaO2% (BldA) [Mass fraction]99 %DO Shaun Aviles Work Phone: [facility]09-24-2024 14:50-0400 Systolic blood nepnszqm286 mm[Hg]DO Shaun Aviles Work Phone: [facility]09-24-2024 12:47-0400 Body pnodqj057.02 cmDO Shaun Aviles Work Phone: [facility]09-24-2024 12:47-0400 Body atjhcz34.23 kgDO Shaun Aviles Work Phone: [facility]09-09-2024 13:33-0400 Body prodkg715.02 cmSt. [facility] Hospital09-09-2024 13:33-0400Body mass index (BMI) [Ratio]23.6 kg/r1VtzeisavtSt. Vincent Hospital09-09-2024 13:33-0400Body ijswpz59.32 [facility]09-09-2024 13:33-0400Diastolic blood jyjjwlpa93 mm[Hg][facility] 06-16-2024 13:33-0400Heart rate79 /minSt. Vincent Hospital 06-16-2024 13:33-0400Systolic blood xwcayyel002 mm[Hg][facility]07-09-2024 14:04-0400Body qnvfyg419.02 cmDO Shaun Aviles Work Phone: [facility]07-09-2024 14:04-0400 Body mass index (BMI) [Ratio]23.9 kg/m2DO Shaun Aviles Work Phone: [facility]07-09-2024 14:04-0400 Body foubfm98.23 kgDO Shaun Aviles Work Phone: [facility]04-23-2024 12:58-0400 Body mqzkhe125.02 cmDO Shaun Aviles Work Phone: [facility]04-23-2024 12:58-0400 Body mass index (BMI) [Ratio]26.2 kg/m2DO Shaun Aviles Work Phone: [facility]04-23-2024 12:58-0400 Body .13 kgDO Shaun Nicolásbere Work Phone: [facility]04-23-2024 12:58-0400 Diastolic blood darmovco54 mm[Hg]DO Shaun Nicolásbere Work Phone: [facility]04-23-2024 12:58-0400 Heart rate89 /Jad Aviles Work Phone: [facility]04-23-2024 12:58-0400 Respiratory rate16 /Jad Aviles Work Phone: [facility]04-23-2024 12:58-0400 SaO2% (BldA) [Mass fraction]99 %DO Shaun Aviles Work Phone: [facility]04-23-2024 12:58-0400 Systolic blood thnhivoh501 mm[Hg]DO Shaun Aviles Work Phone: [facility]01-09-2024 13:20-0500 Body yenjvh799.[address] [facility]01-09-2024 13:20-0500 Body mass index (BMI) [Ratio]25.68 kg/m2Ryan Scovanner Other [employer] Other 01-09-2024 13:20-0500Body unigzp09.[address] Other [facility]11-15-2023 10:06-0500 Diastolic blood cmqsquoc05 mm[Hg]DO Shaun Aviles Work Phone: [facility]11-15-2023 10:06-0500 Heart rate67 /Jad Aviles Work Phone: [facility]11-15-2023 10:06-0500 Respiratory rate16 /Jad Aviles Work Phone: [facility]11-15-2023 10:06-0500 SaO2% (BldA) [Mass fraction]99 %DO Shaun Aviles Work Phone: [facility]11-15-2023 10:06-0500 Systolic blood hpbttbeu865 mm[Hg]DO Shaun Aviles Work Phone: [facility]11-15-2023 08:02-0500 Body .56 cmDO Shaun Aviles Work Phone: [facility]11-15-2023 08:02-0500 Body cluepp85.41 kgDO Shaun Aviles Work Phone: [facility]10-19-2023 13:00-0400 Body fnnuap045.02 cmShaun Aviles Other [employer] Other 10-19-2023 13:00-0400Body mass index (BMI) [Ratio] 25.68 kg/e5FeqvfShaun Aviles Other [employer] Other 10-19-2023 13:00-0400Body ijyjbu66.77 kgShaun Aviles Other [employer] Other 10-19-2023 13:00-0400Diastolic blood wzfxykxc14 mm[Hg] Shaunjairon Aviles Other [employer] Other 10-19-2023 13:00-0400Respiratory rate18 /minSebastiánjairon Nicolásbere Other [employer] Other 10-19-2023 13:00-5110OxK2% (BldA) [Mass fraction]97 % Shaunjairon Aviles Other [employer] Other 10-19-2023 13:00-0400Systolic blood ldtcgboz177 mm[Hg] Shaun Aviles Other [employer] Other 10-02-2023 13:20-0400Body .02 cmRyan Scovanner Other [employer] Other 10-02-2023 13:20-0400Body mass index (BMI) [Ratio] 25.68 kg/m2Ryan Scovanner Other [employer] Other 10-02-2023 13:20-0400Body wjwust41.77 kgRyan Scovanner Other [employer] Other 10-02-2023 13:20-0400Diastolic blood zzbkyrjc82 mm[Hg] Janak Laroseleandra Other [employer] Other 10-02-2023 13:20-0400Systolic blood runhhnfp081 mm[Hg] Janak Stanton Other [employer] Other 09-24-2023 20:50-0400Diastolic blood ezjlwgah22 mm[Hg] [facility]09-24-2023 20:50-0400Heart rate86 /[facility]09-24-2023 20:50-0400Mean blood uedjsfse27 mm[Hg][facility]09-24-2023 20:50-0400Respiratory rate17 /[facility] 07-01-2023 20:50-1309XgB4% (BldA) [Mass fraction]95 %[facility]09-24-2023 20:50-0400Systolic blood ysauekwf96 mm[Hg][facility]09-24-2023 19:58-0400Heart rate87 /minC[facility]09-24-2023 19:58-0400Respiratory rate16 /[facility]09-24-2023 19:58-9094SvS1% (BldA) [Mass fraction]95 %[facility]09-24-2023 19:07-0400Heart rate89 /[facility]09-24-2023 19:07-0400Respiratory rate18 /[facility] 07-01-2023 19:07-7845FqP9% (BldA) [Mass fraction]98 %[facility]09-24-2023 17:52-0400Body itchrsyujgn08.24 [degF][facility]09-24-2023 17:52-0400Diastolic blood dnirxiut44 mm[Hg][facility]09-24-2023 17:52-0400Mean blood ylaqpbik68 mm[Hg][facility]09-24-2023 17:52-0400Systolic blood mm[Hg][facility]06-29-2023 11:00-0400Body asgrmt477.02 cmThomas Felter Other [employer] Other 06-29-2023 11:00-0400Body mass index (BMI) [Ratio] 27.81 kg/g9Drtdvm Felter Other [employer] Other 06-29-2023 11:00-0400Body mhlusz28.22 kgThomas Felter Other [employer] Other 05-30-2023 13:45-0400Body ryjevw037.02 cmShaun Aviles Other [employer] Other 05-30-2023 13:45-0400Body mass index (BMI) [Ratio] 27.88 kg/j3Jbzsz Traci Other [employer] Other 05-30-2023 13:45-0400Body yeryqi46.4 kgBryjairon Traci Other [employer] Other 05-30-2023 13:45-0400Diastolic blood mm[Hg] Shaun Aviles Other [employer] Other 05-30-2023 13:45-0400Respiratory rate16 /minShaun Aviles Other [employer] Other 05-30-2023 13:45-2447MzB0% (BldA) [Mass fraction]98 % Shaunjairon Aviles Other [employer] Other 05-30-2023 13:45-0400Systolic blood diahbgbj871 mm[Hg] Shaunjairon Aviles Other [employer] Other 11-14-2022 13:30-0500Body cfihvu697.02 cmShaun Aviles Other [employer] Other 11-14-2022 13:30-0500Body mass index (BMI) [Ratio] 25.15 kg/n4OwviyShaun Aviles Other [employer] Other 11-14-2022 13:30-0500Body aspmgu06.41 kgShaun Aviles Other [employer] Other 11-14-2022 13:30-0500Diastolic blood jyvxpwmn06 mm[Hg] Shaun Aviles Other [employer] Other 11-14-2022 13:30-0500Respiratory rate16 /minSebastiánjairon Aviles Other [employer] Other 11-14-2022 13:30-8345CrD9% (BldA) [Mass fraction]99 % Shaun Nicolásbere Other [employer] Other 11-14-2022 13:30-0500Systolic blood twxecotx343 mm[Hg] Shaun Aviles Other [facility] [employer] Other [id number] 13:00-0400Body vqruffcbbgw13.2 [degF]DO Denys Itzkowitz Work Phone: [facility]07-27-2022 13:00-0400 Diastolic blood azdvjlvv19 mm[Hg]DO Denys Itzkowitz Work Phone: [phone]07-27-2022 13:00-0400 Heart rate96 /minDO Denys Itzkowitz Work Phone: [phone]07-27-2022 13:00-0400 Respiratory rate16 /minDO Denys Itzkowitz Work Phone: [phone]07-27-2022 13:00-0400 SaO2% (BldA) [Mass fraction]98 %DO Denys Itzkowitz Work Phone: [facility]07-27-2022 13:00-0400 Systolic blood moufzgbf725 mm[Hg]DO Denys Itzkowitz Work Phone: [facility]07-22-2022 16:06-0400 Body oetmkaksffb92.7 [degF]Shabbir Morales [facility]07-22-2022 16:06-0400 Diastolic blood natzerqd56 mm[Hg]Shabbir Morales [facility]07-22-2022 16:06-0400Heart yphf203 /Jevon Morales [facility]07-22-2022 16:06-0400 Respiratory rate18 /Jevon Morales [facility]07-22-2022 16:06-9875PhL3% (BldA) [Mass fraction]98 %Shabbir Morales [facility]07-22-2022 16:06-0400 Systolic blood yncnfvke079 mm[Hg]Shabbir Morales [facility]06-21-2022 16:15-0400Body xooqzm696.02 cmShaun Aviles Other [employer] Other 06-21-2022 16:15-0400Body mass index (BMI) [Ratio] 22.99 kg/t4YwmpfShaun Aviles Other [employer] Other 06-21-2022 16:15-0400Body lyhprm79.88 kgShaun Aviles Other [employer] Other 06-21-2022 16:15-0400Diastolic blood mm[Hg] Shaun Aviles Other [employer] Other 06-21-2022 16:15-0400Respiratory rate16 /minShaun Aviles Other [employer] Other 06-21-2022 16:15-5951MmD7% (BldA) [Mass fraction]98 % Shaun Aviles Other [employer] Other 06-21-2022 16:15-0400Systolic blood sbaogwos241 mm[Hg] Shaun Aviles Other [employer] Other 04-14-2022 14:15-0400Body .02 cmShaun Aviles Other [employer] Other 04-14-2022 14:15-0400Body mass index (BMI) [Ratio] 22.85 kg/z6Rilse Kuns Other [employer] Other 04-14-2022 14:15-0400Body eqovnx25.51 kgSebastiánjairon Aviles Other [employer] Other 04-14-2022 14:15-0400Diastolic blood xgozqktl83 mm[Hg] Shaunjairon Monzonbere Other [employer] Other 04-14-2022 14:15-0400Respiratory rate16 /minShaun Aviles Other [employer] Other 04-14-2022 14:15-6745SvG7% (BldA) [Mass fraction]95 % Shaunjairon Monzonbere Other [employer] Other 04-14-2022 14:15-0400Systolic blood gavfjifs003 mm[Hg] Shaun Aviles Other [employer] Other 03-10-2022 13:00-0500Body .02 cmSebastiánjairon Aviles Other [employer] Other 03-10-2022 13:00-0500Body mass index (BMI) [Ratio] 22.49 kg/s4Jtvqy Kuns Other [employer] Other 03-10-2022 13:00-0500Body uqbnmw69.61 kgSebastiánjairon Aviles Other [employer] Other 03-10-2022 13:00-0500Diastolic blood bkllimfc73 mm[Hg] Shaunjairon Aviles Other [employer] Other 03-10-2022 13:00-0500Respiratory rate16 /minShaun Aviles Other [employer] Other 03-10-2022 13:00-0767BuE9% (BldA) [Mass fraction]99 % Shaunjairon Monzonbere Other [employer] Other 03-10-2022 13:00-0500Systolic blood xzajpnlm598 mm[Hg] Shaunjairon Monzons Other [employer] Other 01-31-2022 12:00-0500Body .02 cmSebastiánjairon Monzonbere Other [employer] Other 01-31-2022 12:00-0500Body mass index (BMI) [Ratio] 22.85 kg/j9Zigoh Kunbere Other [employer] Other 01-31-2022 12:00-0500Body aihogr57.51 kgSebastiánjairon Aviles Other [employer] Other 01-31-2022 12:00-0500Diastolic blood mm[Hg] Shaunjairon Aviles Other [employer] Other 01-31-2022 12:00-0500Respiratory rate18 /minSebastiánjairon Monzonbere Other [employer] Other 01-31-2022 12:00-8780PnD7% (BldA) [Mass fraction]99 % Shaun Aviles Other [employer] Other 01-31-2022 12:00-0500Systolic blood tyzhvqee533 mm[Hg] Shaun Aviles Other [employer] Other 12-20-2021 13:30-0500Body zjsubz016.02 cmShaun Aviles Other [employer] Other 12-20-2021 13:30-0500Body mass index (BMI) [Ratio] 22.32 kg/i5VlpuwShaun Aviles Other [employer] Other 12-20-2021 13:30-0500Body .15 kgShaun Aviles Other [employer] Other 12-20-2021 13:30-0500Diastolic blood ubsyikyz91 mm[Hg] Shaun Aviles Other [employer] Other 12-20-2021 13:30-0500Respiratory rate16 /minShaun Aviles Other [employer] Other 12-20-2021 13:30-8086WlX3% (BldA) [Mass fraction]99 % Shaun [facility]be[facility] [employer] Other 12-20-2021 13:30-0500Systolic blood kihtoyev232 mm[Hg] Shaun Traci Other [employer] Other Encounters Encounter DateEncounter TypeCare ProviderFacilityStart: 08-18-2025 End: 64-04-2738sophdyfhslPVUJ J TRAVISProMedica DeWitt General Hospitaltart: 08-05-2025 End: 88-43-8278wosrbpbaclUxsbp Kuns DO Work Phone: [phone]-Rydgpturm Health NeurologyStart: 08-05-2025 End: 04-53-0265Isfpdhl encounter procedureChroberta Underwood [facility] Neurology Work Phone: Start: 07-14-2025 End: 50-90-6459pbswoctqwdPfaut Kuns DO Work Phone: [facility] Work Phone: Start: 07-14-2025 End: 46-53-0601Hkbsmsr encounter procedureJanak Underwood [facility] Gastro Work Phone: Start: 07-07-2025 End: 82-40-1038avkrysjbbjBawec Kuns DO Work Phone: [facility] Work Phone: Start: 07-07-2025 End: 54-08-0716Jbkktjk encounter procedureShaun Aviles P DO-[facility] Work Phone: Start: 06-17-2025 End: 49-24-2635Gcbxenn encounter procedureShaun Aviles P DO-Lab [facility] Work Phone: Start: 06-17-2025 End: 65-74-3406wyxpiwsaojQvvzw Kuns DO Work Phone: [facility] Work Phone: Start: 06-16-2025 End: 36-77-6810jtiwwyyukyAixdt Kuns DO Work Phone: [facility] Work Phone: Start: 06-16-2025 End: 48-63-7507Mbtfhwa encounter procedureShaun Aviles P DO-[facility] Work Phone: Start: 05-27-2025 End: 07-73-2751Tpyvdju encounter Marcin Underwood APRN-Nuc Med [facility] [place] Work Phone: Start: 05-27-2025 End: 40-72-5764osylloyxljIyfuo Kuns DO Work Phone: [facility] Work Phone: Start: 05-18-2025 End: 05-16-5495Qmrfskn encounter procedureShaun Aviles P DO-MRI [facility] Work Phone: Start: 05-18-2025 End: 67-11-7671npqvakejzgBzsye Kuns DO Work Phone: [facility] Work Phone: Start: 05-12-2025 End: 43-07-9670krroamzjloPqajk Kuns DO Work Phone: [facility] Work Phone: Start: 05-12-2025 End: 12-85-2115Mmcfdnj encounter Marcin Underwood APRN-[facility] Gastro Work Phone: Start: 21-28-6028Vcd-patient / Non-visitAaron Jones DO-[facility] Work Phone: Start: 04-21-2025 End: 77-72-8870Snrbpfj encounter procedureShaun Aviles P DO-MRI [address] Work Phone: Start: 04-21-2025 End: 70-82-4080aqwgdhmgsdXuhkz Kuns DO Work Phone: [facility] Work Phone: Start: 03-16-2025 End: 18-05-0806fwsrtkxycrCxrquzckn [facility] Work Phone: Start: 03-16-2025 End: 69-98-7247Zbxhigr encounter procedureMelanie Physician Group-[facility] Work Phone: Start: 01-05-2025 End: 51-78-8821Ojiark flowsheetCorey Emilia DO Work Phone: [facility] BCP OBStart: 01-05-2025 End: 26-84-2387Oxinwq flowsheetCorey Emilia DO Work Phone: [facility] BCP OBStart: 01-05-2025 End: 28-26-3559Elwkpnlqs Result EncounterCorey Emilia DO Work Phone: [facility] External Department UnsolicitedStart: 01-05-2025 Non-patient / Non-visitMelanie Physician Group-[facility] Work Phone: Start: 01-05-2025 End: 92-60-3543wabrdtzlijLTECW FAZIONot AvailableStart: 01-05-2025 End: 03-00-6582Hpymxef encounter procedureCorey Emilia DO Work Phone: n[facility] HealthcareStart: 01-05-2025 End: 12-28-1003Gytoddio preventive med est patient 18-39 yrsCorey Emilia DO Work Phone: [facility] BCP OBComment on above:Well woman exam with routine gynecological examStart: 12-23-2024 End: 88-89-3853wbhcbjgcgbMffvemmguC[facility] Work Phone: Start: 12-23-2024 End: 12-96-9473Fovqmtc encounter procedureMelanie Physician Group-[facility] Work Phone: Start: 11-11-2024 End: 53-29-8213snyasgsrzhOetklgoxy [facility] Work Phone: Start: 11-11-2024 End: 77-18-3570Agwahci encounter procedureMelanie Physician Group-[facility] Gastro Work Phone: Start: 08-26-2024 End: 00-86-1566fnfhmbnhjyEcqpa Kuns DO Work Phone: [facility] Work Phone: Start: 08-26-2024 End: 69-48-0440Bvcmbzk encounter procedureShaun Aviles DO Work Phone: [facility] [place] Work Phone: Start: 08-05-2024 End: 58-21-2736Eebtdbh encounter procedureDO Shaun Aviles Work Phone: [facility] [place] Work Phone: Start: 08-05-2024 End: 70-31-9723klpexiflhgFR Shaun Aviles Work Phone: [facility] Work Phone: Start: 07-31-2024 End: 52-86-9232xsqagtbrukNS Shaun Aviles Work Phone: [facility] Work Phone: Start: 07-31-2024 End: 34-19-4545Rvaixdr encounter procedureDO Shaun Aviles Work Phone: [facility] Work Phone: Start: 07-10-2024 End: 56-29-1160rgfnjxppvfIJSIF M HEMMERNot AvailableStart: 07-10-2024 End: 44-24-3475Yulsbr outpatient visit 15 minutesCassandra GEIGER Work Phone: [facility] SWS UCComment on above:Dental infection (Primary Dx)Start: 26-71-9661Uqf-patient / Non-visitDO Shaun Aviles Work Phone: [facility] Work Phone: Start: 07-01-2024 End: 35-34-5281Mhrftbfxt to same day surgery centerDO Shaun Aviles Work Phone: [facility]-Digestive Health Work Phone: Start: 07-01-2024 End: 82-22-7044qdihmaemjsRV Bryan Kuns Work Phone: [facility] Work Phone: Start: 06-16-2024 End: 91-35-9326wljxstmndnGewxlykdu [facility] Work Phone: Start: 06-16-2024 End: 35-07-3572Uzfpjnk encounter procedureBhupendrasentara [facility] Physician Group-[facility] Gastroenterology Work Phone: Start: 67-86-6667Rjh-patient / Non-[facility]At[facility] Work Phone: Start: 38-61-9527Xah-patient / Non-visitAt[facility] Work Phone: Start: 04-15-2024 End: 45-40-8135llxfwinydxMB Bryan Kuns Work Phone: [facility] Work Phone: Start: 04-15-2024 End: 30-78-2202Fabiooy encounter procedureDO Shaun Aviles Work Phone: [facility] Gastroenterology Work Phone: Start: 01-29-2024 End: 57-71-4255qsyqxucchdPY Shaun Aviles Work Phone: [facility] Work Phone: Start: 01-29-2024 End: 08-49-8903Alzcixq encounter procedureDO Shaun Aviles Work Phone: [facility] [place] Work Phone: Start: 01-22-2024 End: 34-96-8196wshoplecwoNJ Bryan Kuns Work Phone: [facility] Work Phone: Start: 01-22-2024 End: 46-94-1258Efltnxc encounter procedureDO Shaun Aviles Work Phone: [facility]-Ultrasound Cntr for Breast CarStart: 12-27-2023 End: 92-61-7880cngxepolykZZ Bryan Kuns Work Phone: [facility] Work Phone: Start: 12-27-2023 End: 90-82-7619Aavzsnt encounter procedureDO Shaun Aviles Work Phone: [facility] [place] Work Phone: Start: 10-16-2023 End: 10-96-7141jfrkgtcyieHsaa [employer] Other [employer] Other Start: 73-86-7838Quzaoz outpatient visit 15 minutes Janak Brown GastroenterologyStart: 10-16-2023 End: 90-81-4718Paouhev encounter procedureDO Shaun Aviles Work Phone: [facility] Work Phone: Start: 08-23-2023 End: 43-48-0465tgraoblbzcQxsdyua Vickyy Other [employer] Other Start: 69-39-7217Csoioddhh encounterCameropushpa SethiG GastroenterologyStart: 08-22-2023 End: 22-28-3625Suulxclzx to same day surgery Soham Aviles Work Phone: [facility]-Digestive Health Work Phone: Start: 08-22-2023 End: 72-17-8347cbeuqabutwDV Bryan Kuns Work Phone: [facility] Work Phone: Start: 08-15-2023 End: 81-08-7498mdcctqekpgXA Bryan Kuns Work Phone: [facility] Work Phone: Start: 08-15-2023 End: 18-93-0804Nmtgbyc encounter procedureDO Shaun Aviles Work Phone: [facility]-Lab [facility] [place] Work Phone: Start: 07-26-2023 End: 68-73-9425unjwwtrgufZiwae Kuns Other [employer] Other Start: 15-38-9681Msjbvb outpatient visit 25 minutes Shaun Vega [facility] [place]Start: 07-20-2023 End: 13-83-9210ibgfejaiuvPqoau Kuns Other [employer] Other Start: 10-58-0543Cqnutcyus encounterShaun Vega [facility] CastaliaStart: 07-17-2023 End: 29-20-2544owvbrjbsetSC Shaun Monzonbere Work Phone: [facility] Work Phone: Start: 07-17-2023 End: 32-14-9878Adpnito encounter procedureDO Shaun Aviles Work Phone: [facility]-Ultrasound Cntr for Breast CarStart: 07-09-2023 End: 31-57-0390nosbujrjnhHvxr [employer] Other [facility] [employer] Other Start: 83-29-0839Mfidea outpatient new 30 minutesJanak Brown GastroenterologyStart: 07-05-2023 End: 08-66-3755ychtnnhjhoLqmld Kuns Other [employer] Other Start: 49-40-4385Dgtikclkp encounterShaun Vega [facility] CastaliaStart: 07-01-2023 End: 13-63-4906Tzebhnfhh department patient visitAstrit Ulises McmullenFacility:[facility] Start: 07-01-2023 End: 25-51-8949Bpljozwct department patient visitAstrit Ulises Olmedo [facility] Start: 04-23-2023(Procedure) ShortThomas FelterErie [facility] Surgery CenterStart: 04-23-2023 End: 32-80-8755ugccwoqajaAvqcuf Felter Other [employer] Other Start: 04-05-2023 End: 67-62-1924vhwkahqyphEgvike Felter Other [employer] Other Start: 92-38-8306Fthlrp outpatient visit 25 minutes Rell Hernandez [facility] Bone CreekStart: 57-87-7299Ffmedcurw encounter Rell Hernandez Referral CoordinatorStart: 03-06-2023 End: 35-67-6263behhrpwdhzHuuzf Kuns Other [employer] Other Start: 02-45-7644Dhjmxj outpatient visit 25 minutes Shaun Vega [facility] [place]Start: 01-01-2023 End: 73-99-8664fmyvgtzsyhYR Bryan Kuns Work Phone: [facility] Work Phone: Start: 01-01-2023 End: 04-81-4115Fjmybll encounter procedureDO Shaun Aviles Work Phone: [facility]-XRay [facility] [place] Work Phone: Start: 11-24-2022 End: 52-22-9089gipyeugidvEK Bryan Kuns Work Phone: [facility] Work Phone: Start: 11-24-2022 End: 49-32-5058Xotkgge encounter procedureDO Shaun Aviles Work Phone: [facility] Work Phone: Start: 10-20-2022 End: 84-66-7962mfuxjxrypjAojwp Kuns Other [employer] Other Start: 87-11-7140Fgbmwpmhf encounterSebastiánjairon Vega [facility] CastaliaStart: 08-21-2022 End: 88-73-4051hdpchedjhvQcgtd Kuns Other [employer] Other Start: 55-78-1013Nyteda outpatient visit 15 minutes Shaun NicolásbereEMMY Family Medicine [place]aliaStart: 08-17-2022 End: 26-52-1931kzmexmsjegKolmt Kunbere Other [employer] Other Start: 45-11-5653Kuolueiss encounterBryjairon Vega [facility] CastaliaStart: 07-18-2022 End: 46-87-2057tvdkvtglsxMK SHAUN TRACIFacility:P9Caqrn: 07-06-2022 End: 83-14-3182sjpasygwdwIC ILENE MERCADOFacility:I1Qwdcm: 07-02-2022 End: 59-91-5589qxsgllnrtwWT SHAUN AVILESFacility:G9Yyfpc: 06-30-2022 End: 74-85-4665iwjyzoktokGJ DOCTOR MISCFacility:I7Qxaif: 87-20-4404Jmhkugwye for preprocedural laboratory examinationDR [facility] Centertart: 06-27-2022 End: 12-95-4968ymafifipsiLM DOCTOR MISCFacility:O0Odmcs: 06-27-2022 End: 52-32-9769Jdxcaaamj for preprocedural laboratory examinationDR DOCTOR MISC Facility:Z0Olpab: 96-86-7357Yfzkobvsp for other preprocedural examinationDR [facility]ertart: 06-21-2022 End: 59-25-8965aemomcouywKQ DOCTOR MISCFacility:U7Cgxrf: 06-21-2022 End: 77-92-4008Vfdluxfbd for other preprocedural examinationDR DOCTOR MISC Facility:Z2Lxktc: 06-17-2022 End: 58-19-5888wgksgcwfvrHX DOCTOR MISCFacility:Q3Ktwuk: 05-03-2022 End: 07-30-7383Qhosdgtlg to same day surgery centerDO Denys Pearson Work Phone: [facility]-Ultrasound Cntr for Breast CarStart: 05-01-2022 End: 08-68-2508rhlkwstvydShxvh Kuns Other [employer] Other Start: 18-65-2278Xbqgpdjqs encounterShaun Vega [facility] [place]aliaStart: 04-28-2022 End: 52-92-1126Vgtxwwwqm department patient visitShabbir Morales [facility] Start: 04-18-2022 End: 27-72-4580Teibnvr encounter procedureDO Denys Pearson Work Phone: [facility]-Ultrasound Cntr for Breast CarStart: 03-30-2022 End: 11-68-6950haybseswwjFdowy Kuns Other [employer] Other Start: 44-47-8717Icmlhpjrs encounterShaun Vega [facility] [place]aliaStart: 03-28-2022 End: 98-66-8545jkuhpanxjiFojuf Kuns Other [employer] Other Start: 59-24-2667Lcjtol outpatient visit 25 minutes Shaun [facility]ega [facility] [place]Start: 02-16-2022 End: 16-04-9243gokkiubjauWmoom Kuns Other [employer] Other Start: 20-79-0478Aupfybmwo encounterBryjairon MckenzieG [facility] [place]Start: 01-19-2022 End: 97-34-3778gjokijfkoeKfztb Kuns Other [employer] Other Start: 11-70-6002Lsbxpg outpatient visit 25 minutes Shaun AvilesFPG Family Medicine [place]aliaStart: 22-83-0510Nvvladwsl encounterBryjairon MonzonsFPG Family Medicine CastaliaStart: 28-38-9831qbyeuubbqjUM [facility] EMILIA Facility:V9Wphkh: 12-28-2021 End: 54-68-9278hchzuvjizeHV [facility] [employer] Other Start: 38-88-6075Axxffjsll encounterBryjairon AvilesFPG Referral CoordinatorStart: 12-15-2021 End: 24-24-5640xqdmyzxdrtJrhqi Kuns Other [employer] Other Start: 05-16-3487Udugvk outpatient visit 25 minutes Shaun AvilesFPG [facility] [place]Start: 11-28-2021 End: 93-19-2559rznwwigbkyOaojs Kuns Other [employer] Other Start: 40-62-1581Xwnjhxuuh encounterBryjairon AvilesFPG Family Medicine [place]Start: 11-24-2021 End: 76-84-1060ogufnuljywEkuvl Kuns Other [employer] Other Start: 78-56-5255Zgyeigklb encounterBryjairon MonzonsFPG Family Medicine [place]Start: 11-23-2021 End: 66-44-8803voauksqlldUF DOCTOR MISCFacility:B0Fiype: 11-15-2021 End: 17-82-0558aofodkujcaSO SHAUN AVILESFacility:O8Fgwsm: 11-07-2021 End: 92-99-6337tzbimojnofHjliv Kuns Other [employer] Other Start: 19-54-3102Esysmh outpatient visit 25 minutes Shaun Vega [facility] [place]Start: 09-28-2021 End: 92-18-7571bhurmerwobAX SHAUN AVILESFacility:G2Csghf: 09-26-2021 End: 12-96-4843zhcfcinzprHwkud Kuns Other [employer] Other Start: 24-37-9570Sbjprp outpatient visit 25 minutes Shaun Vega [facility] [place]Start: 11-29-2015 End: 13-57-2198Fgdoyeq encounter procedureUNKNOWN PROVIDERFacility:[facility] Procedures DateProcedureProcedure DetailPerforming ClinicianStart: 30-02-9702Rhlbwafvyrly gastric emptying studyShaun Aviles DO Work Phone: Start: 57-22-8781ALF of headShaun Aviles DO Work Phone: Start: 42-10-8138PJJ of Kemi Aviles DO Work Phone: Start: 88-91-1486Rdrtg test visual color cmprsn methsCorey Emilia DO Work Phone: Start: 56-91-6067RUG,APTIMA HPV,AGE GDLNCorey Emilia DO Work Phone: Start: 52-74-5900PrveouatarikufihpkjphhnnmrFL Shaun Avilse Work Phone: Start: 05-19-2024E coli Shiga Toxin EIAStart: 44-53-8433Mzgxfbpiii/Shigella ScreenStart: 28-78-9055Wbdbbwwjonxppsz of left breastDO Shaun Aviles Work Phone: Start: 69-56-9064VcbofgrjotpIX Shaun Aviles Work Phone: Start: 35-94-3109Fvuux culture for bacteriaDO Shaun Aviles Work Phone: Start: 90-07-1803Bamwtfcdpnjunjf of left breastDO Shaun Aviles Work Phone: Start: 20-22-4749Nqwsliabyzg of sacrococcygeal spineDO Shaun Aviles Work Phone: Start: 39-84-5170P-ray of lumbar spine, four or more viewsDO Shaun Aviles Work Phone: Start: 93-82-1517Pkvdrmgwkwvkehl of left breastDO Shaun Aviles Work Phone: Start: 35-42-6175Jvhk needle biopsy of breast using ultrasound guidanceDO Denys Pearson Work Phone: Start: 81-19-2344Bpfrjuqcgrrhzsm of left breastDO Denys Itsrinivasan Work Phone: Plan of Treatment DateCare ActivityDetailAuthorStart: 61-79-2586Dvzawqf referralP[facility] Hospital Work Phone: Start: 04-16-0003XG Unspecified body regionGreen Cross Hospitaltart: 38-32-3567NCE of headMR head/brain wo/w con [facility] Hospitaltart: 12-15-2024 End: 06-79-6595Zperhhj encounter fbifxsekk33/10/2025 1:00 PM EDT Office Visit [facility] [address] [place] [address] Ghanshyam Nieto, [address] [place], [place] [id number] [facility] B[facility] OBStart: 15-38-2779LujatkijxGreen Cross Hospitaltart: 73-91-9048TserxxcfrGreen Cross Hospitaltart: 08-33-4763Cwx and Parasite Concentrate ExamOva and Parasite Concentrate ExamSt. Vincent HospitalaPTT in Platelet poor plasma by Coagulation assaySt. Vincent HospitalBacteria identified in Stool by CultureSt. Vincent HospitalCalprotectin [Mass/mass] in StoolSt. Vincent HospitalComprehensive metabolic 1999 panel - Serum or PlasmaSt. Vincent HospitalComprehenve metabolic 1999 panel - Serum or PlasmaSt. Vincent HospitalCT Head WO and W contrast [facility] HospitalCytology Cervical or vaginal smear or scraping studyPap Smear Pathology and Cytology Routine Well woman exam with routine gynecological exam Ordered: NONY Healthcare Work Phone: comment on above:Ordered: 01/05/2025 Elastase.pancreatic [Mass/mass] in StoolSt. Vincent Hospital Endomysial antibody IgA levelSt. Vincent HospitalGliadin peptide IgA Ab [Units/volume] in SerumSt. Vincent HospitalGliadin peptide IgG Ab [Units/volume] in [facility] HospitalHIV 1+2 Ab+HIV1 p24 Ag [Presence] in Serum or Plasma by ImmunoassaySt. Vincent HospitalIgA [Mass/volume] in Serum or PlasmaSt. Vincent HospitalOva and parasites identified in Unspecified specimen by Light microscopySt. Vincent HospitalPatient EducationGalion Hospital Work Phone: [facility] Work Phone: Tissue transglutaminase IgA Ab [Units/volume] in Serum [facility] HospitalTissue transglutaminase IgG Ab [Units/volume] in [facility] Immunizations Immunization DateImmunizationNotesCare DxfcqfpiBoeadnai05-13-0192rfqvyyvmq A vaccine, adult dosageSt. Vincent Hospital04-04-2023tetanus toxoid, reduced diphtheria toxoid, and acellular pertussis vaccine, adsorbedSt. [facility] Hospital06-09-2014hepatitis A vaccine, pediatric/adolescent dosage, 2 dose scheduleSt. Vincent Hospital06-09-2014human papilloma virus vaccine, quadrivalentSt. Vincent Hospital05-23-2013 human papilloma virus vaccine, quadrivalentSt. [facility] Hospital 22-83-5252uztag papilloma virus vaccine, quadrivalentSt. Vincent Hospital05-17-2010tetanus toxoid, reduced diphtheria toxoid, and acellular pertussis vaccine, adsorbedSt. [facility] Hospital05-01-2003 diphtheria, tetanus toxoids and acellular pertussis vaccineSt. Vincent Hospital05-01-2003measles, mumps and rubella virus vaccineSt. [facility] Hospital05-01-2003poliovirus vaccine, inactivatedSt. [facility] Hospital10-19-1999diphtheria, tetanus toxoids and acellular pertussis vaccine, unspecified formulationSt. [facility] Hospital 76-85-0703plwycytxodi influenzae type b vaccine, conjugate unspecified formulationSt. [facility] Hospital01-11-1999measles, mumps and rubella virus vaccineSt. [facility] Hospital01-11-1999trivalent poliovirus vaccine, live, oralSt. [facility] Hospital09-09-1998diphtheria, tetanus toxoids and acellular pertussis vaccine, unspecified formulation [facility]09-09-1998haemophilus influenzae type b vaccine, conjugate unspecified formulationSt. [facility] Hospital 09-37-6619olkpdgdkhp, tetanus toxoids and acellular pertussis vaccine, unspecified formulationSt. [facility] Hospital07-07-1998haemophilus influenzae type b conjugate and Hepatitis B vaccineSt. [facility] Hospital07-07-1998poliovirus vaccine, inactivatedSt. [facility] 98-00-9789akreutegya, tetanus toxoids and acellular pertussis vaccine, unspecified formulationSt. [facility] Hospital02-18-1998haemophilus influenzae type b conjugate and Hepatitis B vaccineSt. [facility] Hospital02-18-1998poliovirus vaccine, inactivatedSt. [facility] Hospital 11-12-2890zvtchgyje B vaccine, pediatric or pediatric/adolescent dosageSt. Vincent HospitalNEGATED: Highlighted row has not occurred!09-17-2019 influenza, seasonal, injectablePatient ObjectionBryjairon Aviles Other [facility] Payers DatePayer CategoryPayerPolicy ID2018MedicaidCARESOURCESOURCE MEDICAID CARESOURCE [place] [id number] 2017-Present [address] [place] [address] [id number] Health Insurance CARESOURCE MEDICAID [id number] [id number] 1997Unknown [id number] 2..1.491381.3.57[id number] 2..1.142824.3.57[id number] 2..1.494864.3.57[id number] 2..1.557236.3.57[id number] 2..1.893555.3.57[id number] 2.0.1.401028.3.57[id number] 2.0.1.062712.3.57[id number] 2.840.1.839180.3.57[id number] 2.16.840.1.602467.3.57[id number] 2.16840.1.358263.3.57[id number] 2.840.1.937427.3.57[id number] 2.0.1.438605.3.57[id number] 2.0.1.216735.3.57[id number] 2.0.1.219901.3.57[id number] 2.0.1.782020.3.57[id number] 2..1.586611.3.57[id number] 2..1.315833.3.57[id number] 2.0.1.508512.3.579.2.905013-69-7752Alhf-pmy pt1mxa24-k534-6951-8v57-5798m[id number] [id number] 2.840.1.3[id number] 2.840.1.414[id number] 2.840.1.936255.3.579.2.531 [id number] 2.16.840.1.0[id number] 2.16.840.1.1[id number] 2.16.840.1.641627.3.579.2.531 Social History DateTypeDetailFacilityUnknown if ever smokedNoRoxborough [facility] Hospital RVE.SOL [employer] Other Start: 08-06-2023 End: 18-17-4556Ffy Assigned At [facility] [employer] Other TobaccCentervilleComment on above:vapes dailyStart: 98-25-6934Amy Assigned At [facility] CampusTobacco smoking statusNo Smoking Status [facility]: 08-22-2023 End: 66-25-9573Vufgefn smoking status NHISSmoker (finding)[facility]: 25-42-9232Lqoprvg smoking status NHISNever smoked tobacco (finding)[facility]: 05-08-2023 End: 25-51-4174Osbkmog smoking status NHISSmokes tobacco dailyNOMS Healthcare History of tobacco useCigarette SmokerNOMS HealthcareStart: 07-10-2024 End: 23-66-3877Bckisjgas beverage intakeLifetime non-drinker (finding)[facility] HealthcareStart: 08-06-2023 End: 58-70-2613Utjbgyj of Social functionNOMS HealthcareStart: 48-25-1697Vvv assigned at birthNot on fileNOMS HealthcareStart: 08-26-2024 End: 55-28-8572TtkSrhdap (finding)[facility] Goals DatePatient GoalDesired Activity/State Functional Status TwviKjkzeluaqaEniqyqNxruutcs82-67-2852Lmalxpynpv StatusN/[facility]07-22-2022Functional StatusN/[facility] Clinical Notes 09-26-2021 to 05-27-2025 Note Date & NsqsWeqqHeixchcv46-58-6436 Nuclear medicine Diagnostic study note [facility] [place] [address] Nuclear Medicine Report Signed Patient: Brian Sullivan MR#: [id number] : 1995 Acct:[id number] Age/Sex: 29 / F ADM Date: 5 Loc: CO Room: Type: [facility] Attending Dr: Janak Stanton SENIOR J2EE DEVELOPER Copies to: Darinel Espinoza II, MD Ryan M Scovanner, APRN~ Ordering Provider: Janak Stanton APRN Date of Service: 05/27/25 NM/CO gastric emptying study: R10.13 - Epigastric pain CO gastric emptying study 05/27/2025 11:18 AM SIGNS AND SYMPTOMS: ^R10.13 - Epigastric pain PROTOCOL: Scintigraphic images of the abdomen obtained after oral radiotracer administration. Region of interest was drawn along the gastric lumen with percent retained gastric activity calculated from the 240 minutes. COMPARISON: None. RADIOPHARMACEUTICAL: 1.0 mCi of oral technetium 99m sulfur colloid mixed with egg FINDINGS: Radiotracer activity is noted within the gastric lumen. There is emptying into the small bowel throughout the study. No gastroesophageal reflux is noted. At 30 minutes 102% of radiotracer material is retained within the gastric lumen. At 60 minutes 95% of radiotracer material is retained within the gastric lumen. At 120 minutes 60% of radiotracer material is retained within the gastric lumen. At 180 minutes 41% of radiotracer material is retained within the gastric lumen. At 240 minutes 23% of radiotracer material is retained within the gastric lumen. NM/NM gastric emptying study IMPRESSION: At 240 minutes 23% of radiotracer material is retained within the gastric lumen. This is consistentwith gastroparesis. Impression dictated by: Darinel Espinoza M.D. 05/27/2025 3:09 PM Dictation Location: [place] [address] Transcribed By: [facility] 05/27/25 1509 Dictated By: Darinel Espinoza II, MD 05/27/25 1506 Signed By: 05/27/[address] [facility] Work Phone: 1(879) 917-365308-05-2025 Evaluation note* Diagnosis Onset Date Resolution Status Admit Date Anxiety acuteAugust 2024 1:57pmDyspepsiaacuteAugust 2024 1:57pmGERD (gastroesophageal reflux disease)acuteAugust 2024 1:57pmHemorrhoidsacute May 12, 2025 1:57pmAbnormal brain MRIacuteSept2024 12:34pm Abnormal bruisingacuteSept2024 12:34pmGastroparesisacuteSeptember 2024 12:34pmHyperlipidemiaacuteSept2024 12:34pmMigraineacute June 16, 2025 12:34pm [facility] Work Phone: 1(667) 720-162808-05-2025 Evaluation note* Diagnosis Onset Date Resolution Status Admit Date Anxiety acuteAugust 2024 1:57pmDyspepsiaacuteAugust 2024 1:57pmGERD (gastroesophageal reflux disease)acuteAugust 2024 1:57pmHemorrhoidsacute May 12, 2025 1:57pmAbnormal brain MRIacuteSeptember 2024 12:34pm Abnormal bruisingacuteSeptember 2024 12:34pmAnxiety with depressionacute June 16, 2025 12:34pmGastroparesisacuteSeptember 2024 12:34pm HyperlipidemiaacuteSept2024 12:34pmMigraineacuteSept2024 12:34pm [facility] Work Phone: 1(315) 681-731208-05-2025 Evaluation note* Diagnosis Onset Date Resolution Status Admit Date Anxiety acuteAugust 2024 1:57pmDyspepsiaacuteAugust 2024 1:57pmGERD (gastroesophageal reflux disease)acuteAugust 2024 1:57pmHemorrhoidsacute May 12, 2025 1:57pmAbnormal brain MRIacuteSeptember 2024 12:34pm Abnormal bruisingacuteSept2024 12:34pmAnxiety with depressionacute June 16, 2025 12:34pmGastroparesisacuteSeptember 2024 12:34pm HyperlipidemiaacuteSeptember 2024 12:34pmMigraineacuteSeptember 2024 12:34pmAbnormal brain MRIacuteSeptember 2024 12:49pmAbnormal bruisingacute July 07, 2025 12:49pmGastroparesisacuteSeptember 2024 12:49pm MigraineacuteSeptember 2024 12:49pmSchizophreniaacuteSeptember 2024 12:49pm [facility] Work Phone: 1(715) 748-119708-05-2025 Evaluation note* Diagnosis Onset Date Resolution Status Admit Date Anxiety acuteAugust 2024 1:57pmDyspepsiaacuteAugust 2024 1:57pmGERD (gastroesophageal reflux disease)acuteAugust 2024 1:57pmHemorrhoidsacute May 12, 2025 1:57pmAbnormal brain MRIacuteSeptember 2024 12:34pm Abnormal bruisingacuteSept2024 12:34pmAnxiety with depressionacute June 16, 2025 12:34pmGastroparesisacuteSeptember 2024 12:34pm HyperlipidemiaacuteSeptember 2024 12:34pmMigraineacuteSept2024 12:34pmAbnormal bruisingacuteSept2024 12:49pmGastroparesisacute July 07, 2025 12:49pmMigraineacuteSeptember 2024 12:49pm SchizophreniaacuteSeptember 2024 12:49pmDyspepsiaacuteOctober 2024 2:19pmFrequent headachesacuteOctober 2024 2:19pm [facility] Work Phone: 1(742) 338-462708-05-2025 Evaluation note* Diagnosis Onset Date Resolution Status Admit Date Anxiety acuteAugust 2024 1:57pmDyspepsiaacuteAugust 2024 1:57pmGERD (gastroesophageal reflux disease)acuteAugust 2024 1:57pmHemorrhoidsacute May 12, 2025 1:57pmAbnormal brain MRIacuteSeptember 2024 12:34pm Abnormal bruisingacuteSeptember 2024 12:34pmAnxiety with depressionacute June 16, 2025 12:34pmGastroparesisacuteSeptember 2024 12:34pm HyperlipidemiaacuteSeptember 2024 12:34pmMigraineacuteSeptember 2024 12:34pmAbnormal bruisingacuteSeptember 2024 12:49pmGastroparesisacute July 07, 2025 12:49pmMigraineacuteSeptember 2024 12:49pm SchizophreniaacuteSeptember 2024 12:49pmAbdominal painacuteOctober 2024 2:19pmDiarrheaacuteOctober 2024 2:19pmDyspepsiaacuteOctober 2024 2:19pmGastroparesisacuteOctober 2024 2:19pmAnxiety with depressionacute August 05, 2025 8:55amChronic migraine without aura or status migrainosus acuteOctober 2024 8:55amSchizophreniaacuteOctober 2024 8:55am [facility] Work Phone: 1(980) 981-446206-09-2025 Evaluation note* Author [facility] Hospitalhored[facility] 2024 12:41pmThe above note written by LIBRADO Crow acting as human recorder, note dictated by Dr. Shaun Aviles. [facility] Work Phone: 1(983) 724-673303-31-2025 History of Present illness Narrative* Ayah Varma [...] Medical History: Diagnosis Date Anxiety and depression ([facility]) Bladder infection BMI 24.0-24.9, adult Breast lump [...] Medical History: Diagnosis Date Anxiety and depression ([facility]) Bladder infection BMI 24.0-24.9, adult Breast lump [...] ASPIRATION / LYSIS 2018 OTHER SURGICAL HISTORY 2017 calcification and blood clot removal from fallopian [...] nursing note reviewed. Exam conducted with a blindstitch lining feller present. Vitals: Estimated body mass index is [...] of: Ghanshyam Nieto DO documented in this encounterCenterpoint Medical CenterNktbvghprx68-38-0067 Evaluation note* Author [facility] 2024 12:48pmThe above note written by Dina Chris LPN, acting as human recorder, note dictated by Dr. Shaun Aviles. Author Kalie [facility] 2024 12:41pmThe above note written by LIBRADO Crow acting as human recorder, note dictated by Dr. Shaun Aviles. [facility] Work Phone: 1(106) 115-499711-19-2024 Evaluation note* Author Dina [facility] 2023 1:47pmThe above note written by Dina Chris LPN, acting as human recorder, note dictated by Dr. Shaun Aviles. [facility] Work Phone: 1(867) 914-661710-03-2024 History of Present illness Narrative* JUANJO Shrestha [...] insurance. Cassandra ZAMORA PA-C documented in this encounterCenterpoint Medical CenterUkjitlnier35-40-4219 [facility] Evaluation note* Author Janak Stanton [facility] HospitalAuthoredJuly 2023 2:20pmPatient is positive for abdominal pain, dyspepsia, specifically abdominal pain in the epigastric region as well as appetite suppression [facility] Work Phone: 1(508) 335-116801-09-2024 Evaluation note* Encounter Date Diagnosis Assessment Notes Treatment Notes Treatment Clinical Notes Oct, Abdominal pain (ICD-10 - R10.9) The patient has occasional complaints of abdominal pain. She states that this is not enough to interrupt her daily life. She has been watching her diet & has eliminated fatty foods. This has helped. Oct,ectal bleeding (ICD-10 - K62.5)no current complaints of rectal bleeding Oct,lternating constipation and diarrhea (ICD-10 - R19.8)The patien thas unpredictable episodes of frequent bowel movements. She can add Dicyclomine 20 tid. Return visit here in 6 months for follow up. Oct,Heartburn (ICD-10 - R12)The patient has intermittent heartburn. This is dietary related. She does not want to start maintenance medication. She can use Pepcid OTC as needed. [employer] Other 11-15-2023 [facility] Evaluation note* Encounter Date Diagnosis Assessment [...] to have her colonoscopy done as scheduled. Jul,Rectal bleeding (ICD-10 - K62.5) Pt is to continue to follow with gastro and we will continue to monitor. Jul,lternating constipation and diarrhea (ICD-10 - R19.8) Pt is to continue with gastro, and we will continue to monitor. Jul,occyx pain (ICD-10 - M53.3) Jul,Schizophrenia, unspecified type (ICD-10 - F20.9) Pt is to continue with the above medication and with Dr. Storey, and we will continue to monitor. 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 I did recommend she discuss this with Dr. Nieto, with whom she follows for gynocology. I did order a repeat ultrasound to re-evaluate this in 6 months. Jul,nxiety about health (ICD-10 - F41.8) Pt does take the above medication very sparingly. I encouraged her to only use these when she feelsshe really needs them. A refill was provided for them today after an OARRS report was generated andreviewed. She is to continue to follow with Dr. Storey. We will continue to monitor. [employer] Other 10-02-2023 Evaluation note* Encounter Date Diagnosis Assessment Notes Treatment Notes Treatment Clinical Notes Jul, Abdominal pain (ICD-10 - R10.9) Jul,Rectal bleeding (ICD-10 - K62.5)PATIENT WAS HAVING DAILY RECTAL BLEEDING. LAST EPISODE WAS LAST SUNDAY. Jul,lternating constipation and diarrhea (ICD-10 - R19.8)PATIENT STATES THAT SHE CAN GO 2-3 DAYS WITH NO BOWELS MOVEMENTS. ALTERNATING CONSTIPATION AND DIARRHEA HAS BEEN ON GOING FOR YEARS. WILL PROCEED WITH STOOL STUDIES AND COLONOSCOPY AT THIS TIME. [employer] Other 09-24-2023 Hospital Discharge instructions Patient Education 07/01/2023 20:46:37 Pelvic Pain, Female, Ytbj-jn-Tnzk Pelvic Pain, Female Pelvic pain is pain [...] known. Follow these instructions at home: Take olyc-lsq-rqpybja and prescription medicines only as told by [...] provider. Document Revised: 01/31/2022 Document Reviewed: 01/31/2022 [employer] Patient Education 2022 [employer]. Follow Up Care 07/01/2023 17:51:29 With:Ghanshyam NIETO Address: [address] , [place] [address]- Business (1) When:07/04/2023 20:46:14 Comments:Call the office first thing Sunday morning With:SHWETA GONZALEZ Address:Unknown When:Within 3 Day(s) [facility]09-24-2023 Evaluation + Plan noteExtracted from: Title:ED NoteAuthor:Mirna Mcmullen M.D. HDate:07/01/23 1. Pelvic pain (R10.2: Pelvi c and [...] Non-OB Complete Addendum by Kendrick Zacarias MD on July 01, 2023 20:41:03 EDT The patient's [...] on-call for the ER. Patient is still takingher antibiotics as prescribed for colitis. We will provide pain control tonight. She will contact Dr. Nieto's office first thing in the morning for follow-up. At this point pelvic pain of unknown etiology. Possibility of colitis is still considered. Diagnostic Tests Pending * Urine Culture 07/01/23 [facility]05-30-2023 Evaluation note* Encounter Date Diagnosis Assessment Notes Treatment Notes Treatment Clinical Notes February, Coccyx pain (ICD-10 - M53.3) XR reviewed with patient. Noted negative lumbosacral spine, sacrum and coccyx noted no acute bony injury. Since the patient continues with the pain, I do recommend a referral to pain management for possible injections. Patient is agreeabled. Referral initiated. February,Mass of left breast, unspecified quadrant (ICD-10 - N63.20) I did review consult note from Dr. Lemons. I do recommend we continue to check left breast ultrasound every 6 months. Order provided. February,cne, unspecified acne type (ICD-10 - L70.9) Patient is interested in seeing a mail sorting supervisor for acne, I am agreeable. Referral initiated. [employer] Other 11-14-2022 Evaluation note* Encounter Date Diagnosis Assessment Notes Treatment Notes Treatment Clinical Notes Aug, Anxiety about health (ICD-10 - F 41.8) Oarrs report ran and reviewed with the patient today. She has had several gynecological procedures and breast biopsies that cause her signifcant anxiety. All results have been benign. We discussed using xanax very very sparingly and this will be provided to her with the understanding of all risks involved with prescribing a scheduled benzodiazapine. She verbalized understanding. [employer] Other 09-23-2022 NoteOPERATIVE NOTE OPERATION DATE: 06/30/2022 PROCEDURE: Khalida endometrial ablation hysteroscopy with bilateral laparoscopic salpingectomy. PREOPERATIVE DIAGNOSIS: Menorrhagia, desire permanent sterilization, multiparity. POSTOPERATIVE DIAGNOSIS: Menorrhagia, desire permanent sterilization, multiparity. ANESTHESIA: General. SURGEON: Ghanshyam Nieto D.O. PAINTER SIGN MAINTENANCE: DANICA Feng URINE OUTPUT: Yellow and clear. [...] lap and needle counts were correct x2.[facility] HospitalGaqvacqg43-70-0937 Hospital Discharge instructions Patient Education 04/28/2022 16:54:37 [...] safe place to keep a gun, local [facility] may [facility] a [facility] for you. [...] mental health organizations such as the [employer] [place] [employer]ness (AVRIL): www.avril.org Get help [...] 02/05/2018 Document Revised: 01/15/2020 Document Reviewed: 02/05/2018 [employer] Patient Education 2020 [employer]. 04/28/2022 16:54:37 Managing Anxiety, Adult Managing Anxiety, [...] care provider. Avoid caffeine, alcohol, and certain uqoo-rhu-oflqxuw cold medicines. These may make you feel worse. Ask your pharmacist which medicines to avoid. General instructions Take wyyp-ert-cpremtl and prescription medicines only as told by [...] Depression Association of [place] (ADAA): www.adaa.org National [place] [employer]ness (AVRIL): www.avril.org Contact a [...] 09/18/2017 Document Revised: 02/24/2020 Document Reviewed: 02/24/2020 [employer] Patient Education 2020 [place]. Follow Up Care 04/28/2022 16:03:48 With:SHWETA GONZALEZ Address:Unknown When:05/01/2022 16:39:14 Comments:Follow-up with your primary care provider in 3 to 5 days. If symptoms worsen, do not improve, or new symptoms arise please report back to emergency department for further evaluation. Continue to keepyour appointment with your psychiatrist on Sunday as well. [facility]07-22-2022 Evaluation + Plan noteExtracted from: Title:ED NoteAuthor:Dandre ADAME, Gamaliel Jennings.Date:04/28/22 Anxiety (F41.9: Anxiety diso rder, unspecified) Orders: alprazolam, 0.5 mg = 1 tab(s), Oral, TID, PRN for anxiety, X 3 day(s), # 12 tab(s), Refills(s) 0, [facility], 160, cm, 04/28/22 16:08:00 EDT, Height/Length Dosing, 63, kg, 04/28/22 16:08:00 EDT, Weight Dosing [facility]06-21-2022 Evaluation note* Encounter Date Diagnosis Assessment Notes Treatment Notes Treatment Clinical Notes Mar, Mass of left breast, unspecified quadrant (ICD-10 - N63.20) Advised patient to keep appointment with . Mar,Neck pain (ICD-10 - M54.2) OMT provided in the office. I did offer a toradol injection in the office that the patient did accept. I also prescribed the above pain reliever for pain to take as needed for pain. Mar,Left hand paresthesia (ICD-10 - R20.2) OMT provided in the office. Mar,Insomnia, unspecified type (ICD-10 - G47.00) Patient is to continue to follow with the psychiatrist as scheduled. Mar,omatic dysfunction of spine, cervical (ICD-10 - M99.01) Mar,omatic dysfunction of spine, thoracic (ICD-10 - M99.02) Mar,omatic dysfunction of rib (ICD-10 - M99.08) [employer] Other 04-14-2022 Evaluation note* Encounter Date Diagnosis [...] as she is having visual and auditory hallucinationsthat is very bothersome and disrupting her daily [...] her back in one month and re-evaluate. Jan,Insomnia, unspecified type (ICD-10 - G47.00) The patient [...] him but needs to be seen sooner. Jan,Mass of upper outer quadrant of left breast (ICD-10 - N63.21) The patient has been following with Dr. Nieto and was encouraged to follow with him and the specialist as scheduled. [employer] Other 04-14-2022 Evaluation note* Encounter Date Diagnosis Assessment Notes Treatment Notes Treatment Clinical Notes Jan, Anxiety with depression (ICD-10 - F41.8) Jan,orderline personality disorder (ICD-10 - F60.3) Jan,TSD (post-traumatic stress disorder) (ICD-10 - F43.10) [employer] Other 03-10-2022 Evaluation note* Encounter Date Diagnosis Assessment Notes Treatment Notes Treatment Clinical Notes Dec, Anxiety (ICD-10 - F41.9) Patient is very anxious regarding health and personal matters in her life. Patient has been having frequent panic attacks regarding her health. Patient will be seeing a psychiatrist on 12/27. Refill provided Dec,ib pain on right side (ICD-10 - R07.81) Reviewed x-ray with patient, this is normal. Patient admits that pain has improved with changing positions Dec,Mass of left breast, unspecified quadrant (ICD-10 - N63.20) Reviewed mammogram and ultrasound with patient. This does indicate 3 breast masses, two which resulted in enlarged lymph nodes. Due to patient being symptomatic, patient will be referred to Dr. Pearson for further evaluation. Patient would like to move forward with a biopsy to rule out any further diagnosis. Dec,Nipple discharge (ICD-10 - N64.52) Patient continues to have nipple discharge. Denies any further blood discharge. Dec,bnormal mammogram (ICD-10 - R92.8) Dec,History of Clostridium difficile infection (ICD-10 - Z86.19) Patient did report to the ER for fever and muscle aches. Patient had not been on antibiotics prior to this diagnosis. Patient was prescribed Flagyl. Patient feels stools are normal, as they were prior. [employer] Other 02-09-2022 History general Narrative - Reported* Type Description Date Medical History anxiety and depression Medical Historybipolar disorderMedical Biaskiw79/09/22 abnormal mammogram Surgical HistoryT&A2016?Surgical Historybladder inaoylleh2556Ecmtrxpx History Natural thsdfjivhj7478Jvxiplvctpzrety Historysee aboveHospitalization History psychiatric 3-day ufcj5568Lqlfutzydiwmzpz HbllvcbKfztticwkq0218 [employer] Other 02-09-2022 History general Narrative - Reported* Type Description Date Medical History anxiety and depression Medical Historybipolar disorderMedical Ebusyys66/09/22 abnormal mammogram Surgical HistoryT&A2016?Surgical Historybladder jrnhtphbg3359Vxdyhhap History Natural kffuwvujcz3106Kooybfco HistoryTubal ligation/ ablation06/2022 Hospitalization Historysee aboveHospitalization Historypsychiatric 3-day stay 2016Hospitalization JcwwayfIlsbbncrla5713 [employer] Other 01-31-2022 Evaluation note* Encounter Date Diagnosis [...] and reviewed. We will continue to monitor. Oct,nxiety with depression (ICD-10 - F41.8) The patient [...] not seen someone in quite some time. Oct,Insomnia, unspecified type (ICD-10 - G47.00) The patient admits the above medication was prescribed initially by her previous counselor but has not followed with a counselor in a long time and only uses the Remeron sparingly as she does have her son at times and cannot and will not take them when she has her child. Oct,Hearing voices (ICD-10 - R44.0) The patient had been referred to Psychiatrist Dr. James Cosme in [place] and is currently scheduled 12/27/2021 which I did strongly encourage her to follow through with this appointment. She voiced understanding. Oct,nemia, unspecified type (ICD-10 - D64.9) Review of blood work with the patient, blood counts are WNL. She was encouraged to obtain an OTC multivitamin and iron supplement. Oct,Weight loss (ICD-10 - R63.4) Oct,Vitamin D deficiency (ICD-10 - E55.9) Review of blood work with the patient, vitamin D levels are low. She was encouraged to obtain an OTC vitamin D supplement. Oct,creening for cardiovascular condition (ICD-10 - Z13.6) Oct,ib pain on right side (ICD-10 - R07.81) The patient reports pain the in middle of her Oct,loody discharge from left nipple (ICD-10 - N64.52) Oct,reast pain (ICD-10 - N64.4) [employer] Other 12-20-2021 Evaluation note* Encounter Date Diagnosis [...] voiced understanding. We will continue to monitor. Sep,Insomnia, unspecified type (ICD-10 - G47.00) The patient is currently taking remeron and feels it does help her sleep but will not take it at times due to her having a small child at home as she is a single mom. Encouraged her to continue to take this for now as this is working well for her. We will continue to monitor. Sep,creening for cardiovascular condition (ICD-10 - Z13.6) Blood work ordered. Sep,Hearing voices (ICD-10 - R44.0) The patient reports [...] in agreement. We will continue to monitor. Sep,Weight loss (ICD-10 - R63.4) The patient reports an approximate 10lb weight loss that was unintentional. Blood work ordered to rule out abnormalities. Sep,nemia, unspecified type (ICD-10 - D64.9) The patient was anemic while . Blood work ordered to obtain baseline. Sep,creening for endocrine disorder (ICD-10 - Z13.29) Blood work ordered. [employer] Other Evaluation noteNo InformationNort [employer] Other Evaluation noteNo assessment information available [facility] Work Phone: Evaluation noteNort [employer] Other Evaluation note* Diagnosis Onset Date Resolution Status Difficulty sleeping acuteFibroadenoma of left breastacuteIrritable bowel syndrome with diarrheaacute Schizophreniaacute [facility] Work Phone: Evaluation note* Author Janak Stanton [facility]ored[facility] 2023 2:20pmPatient is positive for abdominal pain, dyspepsia, specifically abdominal pain in the epigastric region as well as appetite suppression [facility] Work Phone: Evaluation note* Diagnosis Dental infection- Primary documented in this encounter [facility]* Diagnosis Onset Date Resolution Status Dyspepsia acuteDysphagiaacuteHemorrhoidsacuteIrritable bowel syndrome with diarrheaacute NauseaacuteDysphagiaacute [facility] Work Phone: Evaluation note* Diagnosis Onset Date Resolution Status Dyspepsia acuteDysphagiaacuteHemorrhoidsacuteIrritable bowel syndrome with diarrheaacute NauseaacuteDyspepsiaacuteDysphagiaacute [facility] Work Phone: Evaluation note* Author Dina Chris [facility] HospitalAut[facility] 2023 1:47pmThe above note written by Dina Chris LPN, acting as human recorder, note dictated by Dr. Shaun Aviles. [facility] Work Phone: Evaluation note* Author Dina [facility] 2024 12:48pmThe above note written by Dina Chris LPN, acting as human recorder, note dictated by Dr. Shaun Aviles. [facility] Work Phone: Evaluation note* Diagnosis Well woman exam with routine gynecological exam Routine gynecological examination documented in this encounter [facility] HealthcareHistory and physical note Author Willie Lambert [facility] August 22, 2023 9:21amNote Date/TimeAugust 22, 2023 9:21am[address] [address] Gastroenterology H&P Signed Patient: Brian Sullivan MR#: [id number] : 1995 Acct:[id number] Age/Sex: 27 / F Adm Date: 3 Loc: Room: Type: [facility] Attending Dr: Willie Lambert MD Copies to: DO Willie Carrion MD~ Date of Service: 08/22/2023 HISTORY & PHYSICAL: Patient's history with special attention to the cardiovascular, pulmonary systems and the current problem was reviewed with the patient immediately prior to the procedure. Present medications and doses reviewed in the EMR. Allergies and pertinent laboratory tests were also re viewedat this time in the EMR. The physical [...] <Electronically signed by Willie Lambert MD> 08/22/23920 [facility] Work Phone: History and physical note Author Willie Lambert [facility] July 01, 2024 2:06pmNote Date/TimeSeptember 2023 2:06[place] [address] Gastroenterology H&P Signed Patient: Brian Sullivan MR#: [id number] : 1995 Acct:[id number] Age/Sex: 28 / F Adm Date: 4 Loc: Room: Type: [facility] Attending Dr: Willie Lambert MD Copies to: DO Willie Carrion MD~ Date of Service: 07/01/2024 HISTORY & PHYSICAL: Patient's history with special attention to the cardiovascular, pulmonary systems and the current problem was reviewed with the patient immediately prior to the procedure. Present medications and doses reviewed in the EMR. Allergies and pertinent laboratory tests were also re viewedat this time in the EMR. The physical [...] signed by Willie Lambert MD> 07/01/24 140 [facility] Work Phone: History general Narrative - Reported* Type Description Date Medical History anxiety and depression Medical Historybipolar disorderSurgical HistoryT&A2016?Surgical Historybladder [id number] HistoryNatural [id number] Historysee aboveHospitalization Historypsychiatric 3-day [id number] History [id number] [facility] [employer] Other History general Narrative - ReportedNortFairmount Behavioral Health System [employer] Other Hospital course Narrative No data available for this section [facility] Additional Instructions DISCHARGE INSTRUCTIONS [...] NOT operate machinery such as power tools, [employer] mowers, snow blowers, sewing machines, etc. for [...] problems. -Follow up with PCP. -Office number [phone].[facility] Work Phone: Progress note No data available for this section [facility] HospitalReason for referral (narrative)No reason for referral information availableMarietta Osteopathic Clinic Ctr Work Phone: Reason for visit Narrativediscuss meds for dental procedureNoresearch psychiatric center [employer] Other Summary Purpose Family History No Family History Records Found Relationship Condition Age at Onset Recorded Date/T radha grandparent Heart disease Unknown Not SpecifiedMalignant neoplasm of ovaryUnknowngrandparentChronic obstructive pulmonary diseaseUnknown Relationship Condition Age at Onset Recorded Date/T radha grandparent Heart disease Unknown Not SpecifiedMalignant neoplasm of ovaryUnknowngrandparentChronic obstructive pulmonary diseaseUnknownNot SpecifiedMalignant neoplasmUnknown Relationship Condition Age at Onset Recorded Date/T radha grandparent Heart disease Unknown motherMalignant neoplasm of ovaryUnknowngrandparentChronic obstructive pulmonary diseaseUnknownmotherMalignant neoplasmUnknown Relationship Condition Age at Onset Recorded Date/T radha grandparent Heart disease Unknown motherMalignant neoplasm of ovaryUnknowngrandparentChronic obstructive pulmonary diseaseUnknown Advance Directives No Advanced Directives Records Found Advance Directive Response Recorded Date/ Time Advance Directives No April 06 2:41pm Advance Directive Response Recorded Date/ Time Advance Directives No April 06 1:41pm Reason for Referral Reason *FU 03/14 consult and treat; [facility] Diagnosis 1 Acne, unspecified ac ne type (L70.9) Referral Organization [facility] Referring Provider First Name Shaun Referring Provider Last Name Traci Referring Provider Specialty Family Prac austin Referred Organization [facility] Referred Address [address],[place],[address] Referred Provider Specialty Dermatology Referral Priority Routine General Notes Fore, Abbey M 023 11:32:52 AM >Received today and waiting for office notes to be locked before sending referral Fore, Abbey M 03/07/2023 03:46:26 PM >Office notes locked. [facility] request us to fill out their form and fax to them. They will review the referral and call patient to schedule them. Referral was faxClinical NotesOffice [phone] Reason *Waiting for appt consult and treat Diagnosis 1 Coccyx pain (M53.3) Referral Organization [facility] Referring Provider First Name Shaun Referring Provider Last Name Traci Referring Provider Specialty [facility] Prac austin Referred Organization [facility] [place] Referred Provider Rell Marinelli Referred Address [address] [place],[address] Referred Provider Specialty Pain Medicin e Referral Priority Routine General Notes Abbey Parikh 023 08:18:19 AM >Received today and sent P2P Reason 02/02/22 @ 11:30am consult and treat марина ; anxiety with depression BPD PTSD Diagnosis 1 Anxiety with depress ion (F41.8) Diagnosis 2 Borderline personali ty disorder (F60.3) Diagnosis 3 PTSD (post-traumatic stress disorder) (F43.10) Referral Organization [facility] Referring Provider First Name Shaun Referring Provider Last Name Traci Referring Provider Specialty [facility] Prac austin Referred Organization [facility] Referred Address [address],[place],[address] Referred Provider Specialty Psychiatry Referral Priority Routine Referral Appointment Date 2022-02-02 General Notes Jacqueline Brooks 2021 02:52:37 PM >referral printed and faxed to [phone] along with OV notes from 09/26/2021, 12/15/2021, 01/19/2022, and TE from 01/19/2022 Attpushpa Farr with a note to be put on cancellation list. Vale Parikhpushpa Underwood 01/25/2022 06:53:47 AM >OK, thank you Jacqueline for the update. Will follow up on thisone in a few days Vale Parikhpushpa Underwood 01/27/2022 07:32:28 AM >Fax letter for appt update Vale Parikhpushpa Underwood 01/27/2022 12:23:21 PM >Received letter back with appt Reason *FU 12/26 consutl and treat Diagnosis 1 Abnormal mammogram ( R92.8) Diagnosis 2 Mass of left breast, unspecified quadrant (N63.20) Diagnosis 3 Nipple discharge (N6 4.52) Referral Organization [facility] Referring Provider First Name Shaun Referring Provider Last Name Traci Referring Provider Specialty Family Prac austin Referred Organization [facility] Referred Provider Denys Pearson Referred Address ,[place], [place],[address] Referred Provider Specialty Surgery Referral Priority Routine General Notes Vale Parikhn 022 02:15:28 PM >[facility] 12/16/2021 07:54:15 AM >Waiting for office notes to be locked before sending referralMackinac Straits HospitalValen 12/19/2021 01:26:07 PM >: [facility] General Surgery office request us to fax or send referral P2P and the office will review the referral and will call patient to schedule. Referral was sent P2P Reason consult and quin[place] at ; anxiety hearing voices/sounds Diagnosis 1 Anxiety (F41.9) Diagnosis 2 Hearing voices (R44. 0) [facility] Referring Provider First Name Shaun Referring Provider Last Name Traci Referring Provider Specialty Family Prac austin Referred Organization Unknown Facility Referred Provider Specialty Psychiatry Referral Priority Routine General Notes Jacqueline Brooks 2020 01:12:01 PM > per k- NOT [facility] counseling and recovery- Needs seen by a psychiatrist group. [place] [place] [facility]Jl Abbey 09/26/2021 01:59:20 PM >Reviewed a Dr. James Cosme MD. That is in [place] but goes to [place]. Will fax referral there and patient can choose which office to go to when they call her. Will fax once office notes is locked Clinical Notes Office [phone] Chief Complaint and Reason for Visit Chief Complaint r92.8 Left breast Mass Chief Complaint Abn sandra Chief Complaint Abn sandra m53.3 Chief Complaint N63.20 Chief Complaint N63.20 R19.8 Chief Complaint N63.20 R19.8 Rectal Bleeding, Abdominal Pain, Constipation, Makenna Chief Complaint Follow Up Z79.899 Chief Complaint Z79.899 D24.2 Chief Complaint Z79.899 D24.2 follow upReason for VisitDifficulty sleeping Fibroadenoma of left breast Irritable bowel syndrome with diarrhea Schizophrenia Chief Complaint D24.2 follow up 6 month follow upReason for VisitDifficulty sleeping Fibroadenoma of left breast Irritable bowel syndrome with diarrhea Schizophrenia Dyspepsia Hemorrhoids Irritable bowel syndrome with diarrhea Chief Complaint 6 month follow up 2 month follow up /IBS w/ diarrheaReason for VisitDyspepsia Hemorrhoids Irritable bowel syndrome with diarrhea Dyspepsia Dysphagia Hemorrhoids Irritable bowel syndrome with diarrhea Nausea Chief Complaint 2 month follow up /I BS w/ diarrhea Early Satiety / Dysphagia Early Satiety / Dysphagia 4 wk f/u post EGD / dysphagiaReason for VisitDyspepsia Dysphagia Hemorrhoids Irritable bowel syndrome with diarrhea Nausea Dysphagia Chief Complaint 2 month follow up /I BS w/ diarrhea Early Satiety / Dysphagia Early Satiety / Dysphagia 4 wk f/u post EGD / dysphagiaReason for VisitDyspepsia Dysphagia Hemorrhoids Irritable bowel syndrome with diarrhea Nausea Dyspepsia Dysphagia Chief Complaint Admit Date 2 month follow up /IBS w/ diarrhea Nishante [facility] 2023 1:28pm Early Satiety / Dysphagia June [...] Early Satiety / Dysphagia Early Satiety / DysphagiaReason for VisitDyspepsia Hemorrhoids Irritable bowel syndrome with diarrhea Dyspepsia [...] R59.9 R11.0 April 21, 2025 10:3 7am 6 month follow up-dyspepsia May 12, 2025 1:57pm Reason for Visit Admit Date Enlarged lymph node March 16, 2025 12:25 pm Frequent headaches March 16, 2025 12:25 pm Nicotine dependence March 16, 2025 12:25 pm Anxiety May 12, 2025 1:5 7pm Dyspepsia May 12, 2025 1:5 7pm GERD (gastroesophageal reflux disease) A ugust 2024 1:57pm Hemorrhoids May 12, 2025 1:5 7pm Chief Complaint Admit Date 3 month March 16, 2025 12:25 pm R51.9 R59.9 R11.0 April 21, 2025 10:3 7am 6 month follow up-dyspepsia May 12, 2025 1:57pm R51.9 R90.89 May 18, 2025 4: 35pm Chief Complaint Admit Date 3 month March 16, 2025 12:25 pm R51.9 R59.9 R11.0 April 21, 2025 10:3 7am 6 month follow up-dyspepsia May 12, 2025 1:57pm R51.9 R90.89 May 18, 2025 4: 35pm R10.13 R10.9 R14.0 May 27, 2025 6: 56am Chief Complaint Admit Date R51.9 R59.9 R11.0 April 21, 2025 10:3 7am 6 month follow up-dyspepsia May 12, 2025 1:57pm R51.9 R90.89 May 18, 2025 4: 35pm R10.13 R10.9 R14.0 May 27, 2025 6: 56am 3 month f/u June 16, 2025 12:34pm Reason for Visit Admit Date Anxiety May 12, 2025 1:5 7pm Dyspepsia May 12, 2025 1:5 7pm GERD (gastroesophageal reflux disease) A ugust 2024 1:57pm Hemorrhoids May 12, 2025 1:5 7pm Abnormal brain MRI June 16, 2025 12:34pm Abnormal bruising June 16, 2025 12:34pm Gastroparesis June 16, 2025 12:34pm Hyperlipidemia June 16, 2025 12:34pm Migraine June 16, 2025 12:34pm Chief Complaint Admit Date R51.9 R59.9 R11.0 April 21, 2025 10:3 7am 6 month follow up-dyspepsia May 12, 2025 1:57pm R51.9 R90.89 May 18, 2025 4: 35pm R10.13 R10.9 R14.0 May 27, 2025 6: 56am 3 month f/u June 16, 2025 12:34pm R23.3 E78.5 June 17, 2025 8:32am Reason for Visit Admit Date Anxiety May 12, 2025 1:5 7pm Dyspepsia May 12, 2025 1:5 7pm GERD (gastroesophageal reflux disease) A ugust 2024 1:57pm Hemorrhoids May 12, 2025 1:5 7pm Abnormal brain MRI June 16, 2025 12:34pm Abnormal bruising June 16, 2025 12:34pm Anxiety with depression June 16, 025 12:34pm Gastroparesis June 16, 2025 12:34pm Hyperlipidemia June 16, 2025 12:34pm Migraine June 16, 2025 12:34pm Chief Complaint Admit Date R51.9 R59.9 R11.0 April 21, 2025 10:3 7am 6 month follow up-dyspepsia May 12, 2025 1:57pm R51.9 R90.89 May 18, 2025 4: 35pm R10.13 R10.9 R14.0 May 27, 2025 6: 56am 3 month f/u June 16, 2025 12:34pm R23.3 E78.5 June 17, 2025 8:32am 3 week f/u July 07, 2025 12:49pm Reason for Visit Admit Date Anxiety May 12, 2025 1:5 7pm Dyspepsia May 12, 2025 1:5 7pm GERD (gastroesophageal reflux disease) A ugust 2024 1:57pm Hemorrhoids May 12, 2025 1:5 7pm Abnormal brain MRI June 16, 2025 12:34pm Abnormal bruising June 16, 2025 12:34pm Anxiety with depression June 16, 2 025 12:34pm Gastroparesis June 16, 2025 12:34pm Hyperlipidemia June 16, 2025 12:34pm Migraine June 16, 2025 12:34pm Abnormal brain MRI July 07, 2025 12:49pm Abnormal bruising July 07, 2025 12:49pm Gastroparesis July 07, 2025 12:49pm Migraine July 07, 2025 12:49pm Schizophrenia July 07, 2025 12:49pm Chief Complaint Admit Date R51.9 R59.9 R11.0 April 21, 2025 10:3 7am 6 month follow up-dyspepsia May 12, 2025 1:57pm R51.9 R90.89 May 18, 2025 4: 35pm R10.13 R10.9 R14.0 May 27, 2025 6: 56am 3 month f/u June 16, 2025 12:34pm R23.3 E78.5 June 17, 2025 8:32am 3 week f/u July 07, 2025 12:49pm 8 w follow up Dyspepsia July 14 2:19pm Reason for Visit Admit Date Anxiety May 12, 2025 1:5 7pm Dyspepsia May 12, 2025 1:5 7pm GERD (gastroesophageal reflux disease) A ug2024 1:57pm Hemorrhoids May 12, 2025 1:5 7pm Abnormal brain MRI June 16, 2025 12:34pm Abnormal bruising June 16, 2025 12:34pm Anxiety with depression June 16, 2 025 12:34pm Gastroparesis June 16, 2025 12:34pm Hyperlipidemia June 16, 2025 12:34pm Migraine June 16, 2025 12:34pm Abnormal bruising July 07, 2025 12:49pm Gastroparesis July 07, 2025 12:49pm Migraine July 07, 2025 12:49pm Schizophrenia July 07, 2025 12:49pm Dyspepsia July 14, 2025 2: 19pm Frequent headaches July 14, 2025 2: 19pm Chief Complaint Admit Date 6 month follow up-dyspepsia May 12, 2025 1:57pm R51.9 R90.89 May 18, 2025 4: 35pm R10.13 R10.9 R14.0 May 27, 2025 6: 56am 3 month f/u June 16, 2025 12:34pm R23.3 E78.5 June 17, 2025 8:32am 3 week f/u July 07, 2025 12:49pm 8 w follow up Dyspepsia July 14 2:19pm Reason for Visit Admit Date Anxiety May 12, 2025 1:5 7pm Dyspepsia May 12, 2025 1:5 7pm GERD (gastroesophageal reflux disease) A ugust 2024 1:57pm Hemorrhoids May 12, 2025 1:5 7pm Abnormal brain MRI June 16, 2025 12:34pm Abnormal bruising June 16, 2025 12:34pm Anxiety with depression June 16, 025 12:34pm Gastroparesis June 16, 2025 12:34pm Hyperlipidemia June 16, 2025 12:34pm Migraine June 16, 2025 12:34pm Abnormal bruising July 07, 2025 12:49pm Gastroparesis [...] 8:55am Schizophrenia August 05, 2025 8 :55am Additional Source Comments INFORMATION SOURCE (unrecogn ized section and content) DATE CREATED AUTHOR 10/30/2020 [facility] DATE CREATED AUTHOR AUTHOR'S ORGANIZ ATION 08/17/2022 [facility] DATE CREATED AUTHOR AUTHOR'S ORGANIZ ATION 07/11/2023 [facility] DATE CREATED AUTHOR AUTHOR'S ORGANIZ ATION 01/06/2025 [facility] DATE CREATED AUTHOR AUTHOR'S ORGANIZ ATION 06/19/2025 [facility] DATE CREATED AUTHOR AUTHOR'S ORGANIZ ATION 08/19/2025 [facility] REASON FOR VISIT (unrecogniz ed section and content) ReasonCommentsHaven Behavioral Healthcare Women Visit Care Team (unrecognized sect ion and content) Team Status: Active Member Role Status Keren Aviles DO Primary Care Provider Active Team Status: Inactive Member Role Status Keren Aviles DO Primary Care Provider Active Sta rt: June 16, 2024 End: June 16Lima Dimas ProviderActiveStart: June 16, 2024 End: June 16, 2024 Team Status: Inactive Member Role Status Keren Aviles DO Primary Care Provider Active Sta rt: July 01, 2024 End: July 01Manda Dent ProviderActiveStart: July 01, 2024 End: July 01, 2024 Team Status: Active Member Role Status Keren Aviles DO Primary Care Provider Active Sta rt: July 01, 2024 Manda Mariano Provider, Other ProviderActiveStart: July 01, 2024 Team Status: Inactive Member Role Status Keren Aviles DO Primary Care Provider Active Sta rt: July 31, 2024 End: July 31Desi Dentending ProviderActiveStart: July 31, 2024 End: July 31, 2024 [...] Provider Active Sta rt: May 18, 2024 JUANJO Petersen-CAtnemesio ProviderActiveStart: May 18, 2024 Team Status: Active Member Role Status Keren Aviles DO Primary Care Provider Active Sta rt: May 19, 2024 Manda Ny ProviderActiveStart: May 19, 2024 Team Status: Inactive Member Role Status Keren Aviles DO Primary Care Provider Active Denys Pearson DOAttnidia ProviderActiveCorey FazioReferring Provider Active Team Status: Inactive Member Role Status Dates Denys Pearson DO Attending Provider Active Awilda Chiny Care ProviderActive Team Status: Inactive Member Role Status Dates Shaun Aviles , Primary Care Provider Active Denyskatelin Pearson , DOAttending ProviderActive Team Status: Inactive Member Role Status Dates Shaun Aviles , DO Primary Care Provider, Attending Provi zuly Active Team Status: Inactive Member Role Status Dates Shaun Aviles , Primary Care Provider Active Lima Lucio ProviderActive Team Status: Inactive Member Role Status Dates Shaun Aviles , Primary Care Provider Active Willie Lambert MDAttnidia ProviderActive Team Status: Inactive Member Role Status Dates Janak Stanton APRN Attending Provider Active Start: October 16, 2023 End: October 16, 2023 Team Status: Inactive Member Role Status Dates Shaun Aviles DO Primary Care Provider Active Sta rt: December 27, 2023 End: December 27, 2023Manda Dias ProviderActiveStart: December 27, 2023 End: December 27, 2023 [...] Sta rt: April 15, 2024 End: April 15Lima Dimas ProviderActiveStart: April 15, 2024 End: April 15, 2024Team MemberRelationshipSpecialtyStart DateEnd Date Shaun Aviles MD [facility] [place] [id number] [facility] - General05/09/23 Team Status: Inactive Member Role Status Dates Shaun Aviles DO Primary Care Provider Active Sta rt: November 11, 2024 End: November 11, 2024Lima Lucio ProviderActiveStart: November 11, 2024 End: November 11, 2024 Team Status: Inactive Member Role Status Dates Shaun Aviles DO Primary Care Provide r, Attending Provider Active Start: December 23, 2024 End: December 23, 2024Team MemberRelationshipSpecialtyStart DateEnd Date Shaun Aviles MD [address] [place] [address] PCP - General05/09/23Team MemberRelationshipSpecialtyStart DateEnd Date Shaun Aviles MD [address] [place] [facility] [place] [address] PCP General05/09/23Team MemberRelationshipSpecialtyStart DateEnd Date Shaun Aviles MD [address] [place] [facility] [place] [address] PCP General05/09/23 Team Status: Active Member Role Status Dates Shaun Aviles DO Primary Care Provider Active Sta rt: January 05, 2025 Chelsea Ro ProviderActiveStart: January 05, 2025 Team Status: Inactive Member Role Status Dates Shaun Aviles DO Primary Care Provide r, Attending Provider Active Start: March 16, 2025 End: March 16, 2025 Team Status: Inactive Member Role Status Dates Shaun Aviles DO Primary Care Provider Active Sta rt: March 16, 2025 End: March 16janak Aviles DOAttending ProviderActiveStart: March 16, 2025 End: March 16, 2025 Team Status: Inactive Member Role Status Dates Shaun Aviles DO Primary Care Provider Active Sta rt: April 21, 2025 End: April 21janak Aviles DOAttnidia ProviderActiveStart: April 21, 2025 End: April 21, 2025 Team Status: Active Member Role Status Dates Shaun Aviles DO Primary Care Provider Active Sta rt: May 03, 2025 Aaron D Katko , DOAttending ProviderActiveStart: May 03, 2025 Team Status: Inactive Member Role Status Dates Shaun Aviles DO Primary Care Provider Active Sta rt: May 12, 2025 End: May 12, 2025Sandeep Luciotencary ProviderActiveStart: May 12, 2025 End: May 12, 2025 Team Status: Inactive Member Role Status Dates Shaun Aviles DO Primary Care Provider Active Sta rt: May 18, 2025 End: May 18janak Aviles , DOAttending ProviderActiveStart: May 18, 2025 End: May 18, 2025 Team Status: Inactive Member Role Status Dates Shaun Aviles DO Primary Care Provider Active Sta rt: May 27, 2025 End: May 27, 2025Lima Lucio ProviderActiveStart: May 27, 2025 End: May 27, 2025 Team Status: Inactive Member Role Status Dates Shaun Aviles DO Primary Care Provider Active Sta rt: June 16, 2025 End: June 16ryjairon Aviles , DOAttending ProviderActiveStart: June 16, 2025 End: June 16, 2025 Team Status: Inactive Member Role Status Dates Shaun Aviles DO Primary Care Provider Active Sta rt: June 17, 2025 End: June 17janak Aviles DOAttending ProviderActiveStart: June 17, 2025 End: June 17, 2025 Team Status: Inactive Member Role Status Dates Shaun Aviles DO Primary Care Provider Active Sta rt: July 07, 2025 End: July 07ajnak Aviles DOAttending ProviderActiveStart: July 07, 2025 End: July 07, 2025 Team Status: Inactive Member Role Status Dates Shaun Aviles DO Primary Care Provider Active Sta rt: July 14, 2025 End: July 14, 2025Lima Lucio ProviderActiveStart: July 14, 2025 End: July 14, 2025 Team Status: Active Member Role/Relationship Status Dates Shaun Aviles DO Primary Care Provider Active Team Status: Inactive Member Role/Relationship Status Dates Shaun Aviles DO Primary Care Provider Active Sta rt: May 12, 2025 End: May 12, 2025Lima Lucio ProviderActiveStart: May 12, 2025 End: May 12, 2025 Team Status: Inactive Member Role/Relationship Status Keren Aviles DO Primary Care Provider Active Sta rt: May 18, 2025 End: May 18janak Aviles DOAttending ProviderActiveStart: May 18, 2025 End: May 18, 2025 Team Status: Inactive Member Role/Relationship Status Keren Aviles DO Primary Care Provider Active Sta rt: May 27, 2025 End: May 27, 2025Lima Lucio ProviderActiveStart: May 27, 2025 End: May 27, 2025 Team Status: Inactive Member Role/Relationship Status Keren Aviles DO Primary Care Provider Active Sta rt: June 16, 2025 End: June 16janak Aviles DOAttending ProviderActiveStart: June 16, 2025 End: June 16, 2025 Team Status: Inactive Member Role/Relationship Status Keren Aviles DO Primary Care Provider Active Sta rt: June 17, 2025 End: June 17janak Aviles DOAttending ProviderActiveStart: June 17, 2025 End: June 17, 2025 Team Status: Inactive Member Role/Relationship Status Keren Aviles DO Primary Care Provider Active Sta rt: July 07, 2025 End: July 07janak Aviles DOAttending ProviderActiveStart: July 07, 2025 End: July 07, 2025 Team Status: Inactive Member Role/Relationship Status Keren Aviles DO Primary Care Provider Active Sta rt: July 14, 2025 End: July 14, 2025Lima Lucio ProviderActiveStart: July 14, 2025 End: July 14, 2025 Team Status: Inactive Member Role/Relationship Status Keren Aviles DO Primary Care Provider Active Sta rt: August 05, 2025 End: August 05lyndsey Rivera DOAttending ProviderActiveStart: August 05, 2025 End: August 05, 2025 Goals (unrecognized section and content) Goals [...] BE BASED ON THE PRIMARY CLINICAL RECORDS. [facility], [facility]. provides no warranty or guarantee of the accuracy or completeness of information in this document.
[2025-10-06 09:50] LABS: Hematocrit 40.8 % (36.0-48.0); Hemoglobin 13.3 g/dL (12.0-16.0); Immature Granulocytes Abs Auto 0.02 10^3/uL (0.00-0.03); Immature Granulocytes Pct Auto 0.3 % (0.0-0.5); Lymphocytes Absolute Auto 2.1 10^3/uL (1.2-3.8); Mean Corpuscular HGB Conc 32.6 g/dL (29.9-35.2); Mean Corpuscular Hemoglobin 28.0 pg (26.7-34.0); Mean Corpuscular Volume 85.9 fL (81.0-99.0); Platelet Count 219 10^3/uL (150-450); Red Blood Count 4.75 10^6/uL (4.20-5.40); White Blood Count 6.9 10^3/uL (4.0-11.0)
[2025-10-06 10:17] LABS: Thyroid Stimulating Hormone 1.193 uIU/mL (0.358-3.740)
[2025-10-07 04:07] LABS: FSH 4.8 mIU/mL (.)
== END 2025-10-06 08:53 | disposition home or self-care (01) ==
LOC: US 08:52
PROVIDERS: PCP Family Medicine; Visit Provider Obstetrics & Gynecology
DX: N93.9 Abnormal uterine and vaginal bleeding, unspecified (principal); Z98.890 Other specified postprocedural states; E28.2 Polycystic ovarian syndrome
CPT/HCPCS: 36415; 76830; 76856; 82626; 82627; 82670; 83001; 83002; 83036; 84144; 84439; 84443; 84702; 85025